=== PATIENT | female | born 1960 | race Caucasian/White ===

== ENCOUNTER → 2020-05-22 09:42 | Outpatient (BNVA) | payer OTHER, SELFPAY | PROVIDERS: PCP Internal Medicine; Referring Provider Internal Medicine; Visit Provider Internal Medicine Gastroenterology | DX: K21.9 Gastro-esophageal reflux disease without esophagitis (principal); Z79.899 Other long term (current) drug therapy | CPT/HCPCS: 99213 ==

== ENCOUNTER 2020-06-18 17:41 | Outpatient (REF) | payer OTHER, SELFPAY ==
--- NOTE | 2020-06-18 17:46 | MM_ITS ---
EXAMINATION: MM SCREENING DIGITAL BREAST TOMOSYNTHESIS, BILATERAL CLINICAL INFORMATION: Screening. Asymptomatic. Family history breast cancer in mother, age 42. The lifetime risk of breast cancer based on the Tyrer-Cuzick Model is 19%. COMPARISON: Mammography: 01/09/2019, 12/22/2017, 12/21/2016 TECHNIQUE: Digital breast tomosynthesis is performed in both the craniocaudal and mediolateral oblique views along with computer-aided detection (CAD). Synthesized 2D images are generated from the tomosynthesis. FINDINGS: The breasts are almost entirely fatty (ACR BI-RADS breast composition Category a). Background stromal markings are stable. There is no developing density or interval mass or architectural abnormality in either breast. Again, there is biopsy clip marker central left breast. There are no abnormal calcifications. The axilla and skin contours are unremarkable. MM/MM tomosynthesis screening BI IMPRESSION: No mammographic evidence of malignancy. ASSESSMENT: BI-RADS 1: Negative RECOMMENDATION: Routine annual mammography screening. This patient's information was entered into a reminder system with a target due date for their next mammogram.
== END 2020-06-18 17:42 | disposition home or self-care (01) ==
LOC: HO.MAMMO 17:41
PROVIDERS: PCP Internal Medicine; Visit Provider Internal Medicine
DX: Z12.31 Encounter for screening mammogram for malignant neoplasm of breast (principal)
CPT/HCPCS: 77063; 77067

== ENCOUNTER 2020-07-17 16:22 | Outpatient (REF) | payer OTHER, SELFPAY ==
[2020-07-17 17:38] LABS: TSH reflex Free T4 < 0.01 mIU/mL (0.32-4.0)
[2020-07-17 18:11] LABS: Free T4 (Free Thyroxine) 2.18 ng/dL (0.71-1.85)
[2020-07-17 18:11] LABS: Glucose Urine UA NEG (NEG); Leukocyte Esterase Urine NEG (NEG); Nitrite Urine NEG (NEG); Specific Gravity - Urine >= 1.030 (1.005-1.025); Urine Blood TRACE (NEG); Urine Ketones NEG (NEG); Urine Protein NEG (NEG-TRACE)
[2020-07-17 18:13] LABS: Appearance Urine CLEAR; Color Urine YELLOW
[2020-07-17 18:17] LABS: RBC Urine 0-2 /HPF (0); Squamous Epithelial Cell Urine 1+ /LPF; WBC Urine 0 /HPF (0-4)
== END 2020-07-17 16:23 | disposition home or self-care (01) ==
LOC: HO.LAB 16:22
PROVIDERS: PCP Internal Medicine; Visit Provider Internal Medicine
DX: E03.9 Hypothyroidism, unspecified (principal); R31.9 Hematuria, unspecified; M51.36 Other intervertebral disc degeneration, lumbar region
CPT/HCPCS: 81001; 84439; 84443

== ENCOUNTER → 2020-09-03 15:31 | Outpatient (BNVA) | payer OTHER, SELFPAY | PROVIDERS: PCP Internal Medicine; Visit Provider Urology | DX: R31.21 Asymptomatic microscopic hematuria (principal); Z87.19 Personal history of other diseases of the digestive system | CPT/HCPCS: 81002; 99202 ==

== ENCOUNTER 2020-09-19 16:31 | Outpatient (REF) | payer OTHER, SELFPAY | END 2020-09-19 16:32 | disposition home or self-care (01) | LOC: HO.LAB 16:31 | PROVIDERS: Visit Provider Internal Medicine | DX: Z20.822 Contact with and (suspected) exposure to COVID-19 (principal) | CPT/HCPCS: 36415; C9803; U0003; U0005 ==

== ENCOUNTER 2020-09-23 16:44 | Outpatient (REF) | payer OTHER, SELFPAY ==
[2020-09-23 19:17] LABS: Blood Urea Nitrogen 23 mg/dL (9-16); Estimated Glomerular Filt Rate > 60
== END 2020-09-23 16:45 | disposition home or self-care (01) ==
LOC: HO.LAB 16:44
PROVIDERS: PCP Internal Medicine; Visit Provider Urology
DX: R31.21 Asymptomatic microscopic hematuria (principal); Z87.19 Personal history of other diseases of the digestive system
CPT/HCPCS: 36415; 82565; 84520

== ENCOUNTER → 2020-10-01 12:15 | Outpatient (BNVA) | payer OTHER, SELFPAY | PROVIDERS: PCP Internal Medicine; Visit Provider Physician Assistant | DX: E66.9 Obesity, unspecified (principal); G47.33 Obstructive sleep apnea (adult) (pediatric) | CPT/HCPCS: 99202 ==

== ENCOUNTER → 2020-10-03 15:48 | Outpatient (BNVA) | payer OTHER, SELFPAY | PROVIDERS: Visit Provider Urology | DX: R31.21 Asymptomatic microscopic hematuria (principal) | CPT/HCPCS: Q3014 ==

== ENCOUNTER 2020-10-08 14:50 | Outpatient (REF) | payer OTHER, SELFPAY ==
--- NOTE | ~2020-10-08 | CT_ITS ---
EXAMINATION: CT ABDOMEN AND PELVIS WITHOUT AND WITH CONTRAST CLINICAL INFORMATION: Z87.19 -Microscopic hematuria. COMPARISON: Renal ultrasound 05/06/2020, abdominal ultrasound 09/13/2017 and 03/29/2017 TECHNIQUE: Noncontrast CT of the abdomen and pelvis is performed followed by split bolus contrast-enhanced images using 85 mL Omnipaque 350 contrast.? Post contrast imaging is performed during the combined nephrogram and excretion phase. Sagittal and coronal reformatted images were obtained on the technologist's workstation for both the pre and postcontrast phases. This CT examination was performed using dose optimization techniques as appropriate, variously including the following: *Automated exposure control *Adjustment of mA and/or kV according to patient size (this includes techniques or standardized protocols for targeted exams where dose is matched to indication/reason for exam; i.e. extremities or head) *Use of iterative reconstruction technique DLP: 1278 mGy-cm FINDINGS: LUNG BASES: The visualized lung bases are unremarkable. LIVER, GALLBLADDER, AND BILIARY TREE: The liver is normal in size and smooth in contour. There is a 1.3 cm cyst dome right lobe segment 8. The gallbladder shows no stone or wall thickening or pericholecystic inflammatory changes. Common duct measures 8-9 mm similar to ultrasound 2018. There is no choledocholithiasis. PANCREAS: Unremarkable SPLEEN: Homogeneous, normal in size. Incidental splenule left upper quadrant 0.8 cm. ADRENAL GLANDS: Unremarkable KIDNEYS AND URETERS: The kidneys are normal in size and contour and enhance symmetrically. There is no renal parenchymal lesion. There are no urinary tract calculi. There are some punctate vascular calcifications including small left gonadal vein phlebolith and pelvic calcified phleboliths. No hydronephrosis or perinephric stranding. No mucosal thickening or intraluminal filling the defect demonstrated. BLADDER: Nondistended, unremarkable. GASTROINTESTINAL TRACT: There is moderate stool in the colon. There is no obstruction or inflammatory changes in the bowel or mesentery. The appendix is normal. There is no ascites or fluid collection. ABDOMINAL WALL: Small fat-containing umbilical hernia approximately 3.6 x 2.8 cm. LYMPH NODES: No lymphadenopathy. VASCULAR: Unremarkable PELVIC VISCERA: Unremarkable OSSEOUS STRUCTURES: Degenerative changes lumbar spine. CT/CT abdomen pelvis wo/w con IMPRESSION: 1. No urinary tract calculi, parenchymal lesion, or gross focal filling defect. 2. Hepatic cyst 1.3 cm. 3. Mild prominence common duct, similar to ultrasound 2018. No cholelithiasis. 4. Small fat-containing umbilical hernia.
[2020-10-08] MEDS: iohexoL 350 MG/ML 100 ML INFUS..BTL IV (15:33)
== END 2020-10-08 14:51 | disposition home or self-care (01) ==
LOC: HO.CT 14:50
PROVIDERS: Visit Provider Urology
DX: R31.21 Asymptomatic microscopic hematuria (principal); Z87.19 Personal history of other diseases of the digestive system
CPT/HCPCS: 74178; Q9967

== ENCOUNTER 2020-10-19 10:13 | Outpatient (REF) | payer OTHER, SELFPAY ==
[2020-10-19 10:46] LABS: MANUAL DIFF FLAG NO
[2020-10-19 11:08] LABS: Basophils Percent Auto 0.3 % (0-2); Hematocrit 37.4 % (37-47); Lymphocytes Absolute Auto 0.8 X10*3/uL (1.2-4.9); Lymphocytes Percent Auto 26.1 % (20-40); Mean Corpuscular HGB Conc 32.1 g/dl (31.0-35.0); Mean Corpuscular Hemoglobin 29.1 pg (27.0-33.0); Mean Corpuscular Volume 90.8 fL (80-98); Mean Platelet Volume 10.9 fL (9.4-12.3); Monocytes Absolute Auto 0.4 X10*3/uL (0.1-1.2); Monocytes Percent Auto 13.4 % (2-11); Neutrophils Absolute Auto 1.8 X10*3/uL (2.0-8.3); Neutrophils Percent Auto 59.2 % (45-73); Platelet Count 198 X10*3/uL (160-400); Red Blood Count 4.12 X10*6/uL (4.20-5.50); Red Cell Distribution Width 12.7 % (11.0-16.0)
[2020-10-19 11:16] LABS: Alanine Aminotransferase 24 U/L (0-31); Albumin Level 4.1 g/dL (3.5-5.0); Alkaline Phosphatase 84 U/L (39-117); Anion Gap 14 (12-20); Aspartate Amino Transferase 26 U/L (5-31); Bilirubin Total 0.8 mg/dL (0.0-1.0); Blood Urea Nitrogen 21 mg/dL (9-16); C Reactive Protein 1.59 mg/dL (< or = 0.50); Calcium 9.6 mg/dL (8.4-10.2); Carbon Dioxide 27 mmol/L (22-29); Chloride 106 mmol/L (96-108); Cholesterol 117 mg/dL; Estimated Glomerular Filt Rate > 60; Glucose Fasting 83 mg/dL (60-99); HDL Cholesterol 41 mg/dL; Iron 34 mcg/dL (30-160); LDL Cholesterol Calculated 66 mg/dl; Percent Iron Saturation 13 % (15-50); Potassium 4.1 mmol/L (3.3-5.1); Sodium 143 mmol/L (135-145); Total Iron Binding Capacity 255 mcg/dL (228-428); Total Protein 6.5 g/dL (6.5-8.0); Triglycerides 53 mg/dL; Unsaturated Iron Binding 221 ug/dL
[2020-10-19 11:23] LABS: Estimated Average Glucose 100 mg/dL; Hemoglobin A1c % 5.1 %
[2020-10-19 11:36] LABS: Ferritin 420 ng/mL (10-250); TSH reflex Free T4 < 0.01 uIU/mL (0.32-4.0); Vitamin D 25-OH Total 47.9 ng/mL (>30)
[2020-10-19 12:32] LABS: Free T4 (Free Thyroxine) 2.51 ng/dL (0.71-1.85)
[2020-10-19 14:40] LABS: Folate > 20.0 ng/mL (> or = 4.0); Vitamin B12 717 pg/mL (200-900)
[2020-10-21 16:07] LABS: Calcium (PTHI) 9.9 mg/dL (8.6-10.4); PTHI 25 pg/mL (14-64)
[2020-10-22 21:51] LABS: Insulin Level Total 5.5 uIU/mL; Zinc 82 mcg/dL (60-130)
[2020-10-23 22:07] LABS: Vitamin A 44 mcg/dL (38-98)
== END 2020-10-19 10:14 | disposition home or self-care (01) ==
LOC: HO.LAB 10:13
PROVIDERS: PCP Internal Medicine; Visit Provider Physician Assistant
DX: E66.01 Morbid (severe) obesity due to excess calories (principal); G47.33 Obstructive sleep apnea (adult) (pediatric)
CPT/HCPCS: 36415; 80053; 80061; 82306; 82607; 82728; 82746; 83036; 83525; 83540; 83970; 84425; 84439; 84443; 84590; 84630; 85025; 86140

== ENCOUNTER → 2020-10-30 15:11 | Outpatient (BNVA) | payer OTHER, SELFPAY | PROVIDERS: PCP Internal Medicine; Visit Provider Dietitian, Registered ==

== ENCOUNTER → 2020-11-01 13:44 | Outpatient (BNVA) | payer OTHER, SELFPAY | PROVIDERS: PCP Internal Medicine; Visit Provider Nurse Practitioner Family | DX: M47.27 Other spondylosis with radiculopathy, lumbosacral region (principal); M96.1 Postlaminectomy syndrome, not elsewhere classified | CPT/HCPCS: 99202 ==

== ENCOUNTER → 2020-11-04 15:38 | Outpatient (BNVA) | payer OTHER, SELFPAY | PROVIDERS: PCP Internal Medicine; Visit Provider Surgery | DX: K42.9 Umbilical hernia without obstruction or gangrene (principal) | CPT/HCPCS: 99202 ==

== ENCOUNTER 2020-11-15 10:49 | Day surgery (SDC) | payer OTHER, SELFPAY ==
[2020-11-11 15:21] VITALS: BMI 35.2
--- NOTE | 2020-11-13 15:38 | HO.ANESPROP2 ---
Documented by User: Loren Newberryney 11/13/20 15:41 HPI - Anesthesia Eval Consult details Narrative: 59yo F for Hernia Repair Umbilical with Mesh opioids prn PMFSH Active Problems Active Problems: All Active Problems (Updated 11/13/20 @ 13:39 by Shabnam Magdaleno PA-C) Low TSH level (Acute) Tracheobronchitis (Acute) Leucopenia (Acute) Hypothyroid (Acute) MARLENY (obstructive sleep apnea) (Acute) Spondylosis of lumbosacral spine with radiculopathy (Acute) Failed back syndrome (Acute) Umbilical hernia (Acute) Liver cyst (Acute) Obesity (BMI 30-39.9) (Acute) History of small bowel obstruction (Acute) Lumbar degenerative disc disease (Acute) Hematuria (Acute) GERD (gastroesophageal reflux disease) (Acute) Past Medical History Medical History Anemia Arthritis Depression GERD (gastroesophageal reflux disease) Hematuria History of small bowel obstruction Hypothyroid IBS (irritable bowel syndrome) Leukopenia Liver cyst Lumbar degenerative disc disease Migraines Obesity (BMI 30-39.9) Sleep apnea Umbilical hernia Family History Family History Father FH: prostate cancer Mother Breast cancer Surgical History Surgical History H/O knee surgery H/O tubal ligation H/O: hysterectomy History of back surgery History of bilateral knee replacement History of bladder surgery History of delivery History of endometrial ablation Hx of colonoscopy Hx of total ankle replacement Social History Social History Household Members: None Housing: Apartment Alcohol intake: former Smoking Status: Former smoker Tobacco Type: Cigarette Advance Directives Information Provided: No Current occupational status: unemployed and disabled Meds Allergies Allergy/AdvReac Type Severity Reaction Status Date / Time amoxicillin [Augmentin] Allergy Unknown rash Verified 11/04/20 15:46 cat dander Allergy Unknown NASAL Verified 11/04/20 15:46 SYMPTOMS clavulanic acid [Augmentin] Allergy Unknown rash Verified 11/04/20 15:46 trazodone [TRAZODONE] Allergy Unknown I CAN'T Verified 11/04/20 15:46 BREATHE RIGHT , shortness of breath Home Medications Medication Instructions Recorded Confirmed Last Taken Type quetiapine 300 mg tablet,extended 300 mg PO DAILY 05/22/20 11/11/20 Unknown History release 24 hr albuterol sulfate 90 mcg/actuation 2 puff INHALATION Q6H PRN 09/03/20 11/04/20 Unknown History aerosol inhaler calcium carbonate 500 mg calcium 500 mg PO DAILY 10/01/20 11/11/20 Unknown History (1,250 mg) tablet docusate sodium 100 mg capsule 100 mg PO DAILY 10/01/20 11/11/20 Unknown History glucosamine HCl 500 mg tablet 500 mg PO DAILY 10/01/20 11/11/20 Unknown History multivitamin 1 tab PO DAILY 10/01/20 11/11/20 Unknown History omega-3 fatty acids 1,000 mg 1,000 mg PO DAILY 10/01/20 11/11/20 Unknown History capsule Exam Exam Date and Time: November 13, 2020 1538 Height,Weight and Vital Signs: Height 5 ft 6 in Weight 99 kg Pertinent Lab Results Pertinent Lab Results: Laboratory Tests 10/19/20 10/19/20 10:25 10:25 WBC 3.0 L Hgb 12.0 Hct 37.4 Plt Count 198 Sodium 143 Potassium 4.1 Chloride 106 Carbon Dioxide 27 BUN 21 H Creatinine 0.57 Assessment and Plan Assessment Anesthesia Assessment: Chart Reviewed Documented by User: Keily Shepard 11/15/20 12:37 [facility] Past Medical History Medical History Anemia Arthritis Depression GERD (gastroesophageal reflux disease) Hematuria History of small bowel obstruction Hypothyroid IBS (irritable bowel syndrome) Leukopenia Liver cyst Lumbar degenerative disc disease Migraines Obesity (BMI 30-39.9) Sleep apnea Umbilical hernia Family History Family History Father FH: prostate cancer Mother Breast cancer Surgical History Surgical History H/O knee surgery H/O tubal ligation H/O: hysterectomy History of back surgery History of bilateral knee replacement History of bladder surgery History of delivery History of endometrial ablation Hx of colonoscopy Hx of total ankle replacement Social History Social History Household Members: None Housing: Apartment Alcohol intake: former Smoking Status: Former smoker Tobacco Type: Cigarette Advance Directives Information Provided: No Current occupational status: unemployed and disabled Meds Allergies Allergy/AdvReac Type Severity Reaction Status Date / Time amoxicillin [Augmentin] Allergy Unknown rash Verified 11/04/20 15:46 cat dander Allergy Unknown NASAL Verified 11/04/20 15:46 SYMPTOMS clavulanic acid [Augmentin] Allergy Unknown rash Verified 11/04/20 15:46 trazodone [TRAZODONE] Allergy Unknown I CAN'T Verified 11/04/20 15:46 BREATHE RIGHT , shortness of breath Home Medications Medication Instructions Recorded Confirmed Last Taken Type quetiapine 300 mg tablet,extended 300 mg PO DAILY 05/22/20 11/11/20 Unknown History release 24 hr albuterol sulfate 90 mcg/actuation 2 puff INHALATION Q6H PRN 09/03/20 11/04/20 Unknown History aerosol inhaler calcium carbonate 500 mg calcium 500 mg PO DAILY 10/01/20 11/11/20 Unknown History (1,250 mg) tablet docusate sodium 100 mg capsule 100 mg PO DAILY 10/01/20 11/11/20 Unknown History glucosamine HCl 500 mg tablet 500 mg PO DAILY 10/01/20 11/11/20 Unknown History multivitamin 1 tab PO DAILY 10/01/20 11/11/20 Unknown History omega-3 fatty acids 1,000 mg 1,000 mg PO DAILY 10/01/20 11/11/20 Unknown History capsule Exam Airway Mallampati Class: I (Edentulous) TM Dist: >3cm Neck ROM: Full Loose/Missing/Broken Teeth: Yes, Upper and Lower Heart: RRR Lungs: CTA Assessment and Plan Assessment Anesthesia Assessment: Anesthesia Plan Discussed and Chart Reviewed Final Anesthetic Review NPO: Yes ASA Class: II Final Preanesthetic Review: Meds/Allgs Chart Reviewed, Consent Obtained/Reviewed and Anes Risks/Benef Reviewed Patient Risk: Low Procedure Risk: Low Anesthetic Plan Anesthetic Plan: GA Disposition: Standard PACU
[2020-11-15] VITALS (11 sets, daily range): BP systolic 89–127; BP diastolic 45–69; PULSE 59–68; RESP 12–18; TEMP 36.2–36.5; O2SAT 97–100
[2020-11-15] MEDS: Lactated Ringers 1,000 ML 100 ML IVCONT (11:39)
--- NOTE | 2020-11-15 12:24 | MHC.SHP ---
Pre-Procedural Eval Section B Chief Complaint: Umbilical hernia Allergies: Allergies Allergy/AdvReac Type Severity Reaction Status Date / Time amoxicillin [Augmentin] Allergy Unknown rash Verified 11/04/20 15:46 cat dander Allergy Unknown NASAL Verified 11/04/20 15:46 SYMPTOMS clavulanic acid [Augmentin] Allergy Unknown rash Verified 11/04/20 15:46 trazodone [TRAZODONE] Allergy Unknown I CAN'T Verified 11/04/20 15:46 BREATHE RIGHT , shortness of breath Plan I have reviewed the history and physical and performed a pertinent physical examination on my patient. No changes have occurred unless specified.
--- NOTE | 2020-11-15 13:37 | PM.OP ---
Brief Operative Note Date of Service: 11/15/20 Pre-op diagnosis: Umbilical hernia Post-op diagnosis: same Procedure: Repair of umbilical hernia with Ventralex mesh Implants: Mesh Surgeon: Zia Quintanilla MD Anesthesia: GLMA Estimated blood loss (mL): 1 Pathology: none sent Condition: stable Disposition: PACU
--- NOTE | 2020-11-15 13:38 | P.OP_ITS ---
Operative Note Operative Note Date of Service: 11/15/20 Narrative: Preop diagnosis: Umbilical hernia Postop diagnosis: Umbilical hernia Procedure: Repair of umbilical hernia with Ventralex mesh Surgeon: Zia Quintanilla MD The patient is a 59-year-old female who was referred to me for an umbilical hernia. This was noted on a CAT scan study. I explained to her options for treatment including watchful waiting. She to go ahead with repair of the umbilical hernia. She was aware of the risks, benefits, and alternatives. She was brought to the operating room and placed supine on the table under general anesthesia via laryngeal mask airway. The abdomen was prepped and draped in the usual sterile fashion. A surgical time-out was done. The patient received cefazolin 2 g IV preoperatively. I infiltrated the planned line of incision using a blade with lidocaine 1%. A short supra umbilical incision was made using a blade 15. This carried down through the full-thickness of the skin and subcutaneous fat down to the fascia. It is noted the patient had a thick amount of subcutaneous fat because of her pannus. I gently dissected the umbilicus off of the rest of the fascia until this was lifted off as a flap. I was able to visualize the hernia. This hernia contained significant amounts of omental fat. I had to carefully dissect the hernia contents off the fascial edges using Metzenbaum scissors. I did this circumferentially until was able to completely reduce the hernia. It was about 1 cm in diameter. I used a finger to check the underside of the hernial defect in this appeared to be free of any adhesions. There were no bowel loops surrounding the area. I used a small sized Ventralex mesh and this was flattened under the fascia. I secured the mesh with Prolene 2-0 sutures to the fascial defect through the Prolene straps on 2 sides. The Prolene straps were then trimmed flush on the fascial level. I closed the fascial defect with a [id number] Maxon 1 stitch. I then applied a stitch from the fascia to the umbilicus itself to recreate the dimple using Dexon 3-0 stitch. I reapposed the subcutaneous layer with Dexon 3- 0 interrupted sutures. Skin closure was achieved with Dexon 4-0 subcuticular sutures and Steri-Strips and dressings were applied. The incision was infiltrated with Marcaine 0.5% for postop analgesia the procedure was completed. The patient tolerated the procedure well. There were no complications noted. Initial and final count of sponges and instruments were correct. Estimated blood loss was about 1 cc. The patient was extubated without difficulty and transferred to the recovery room with stable vital signs.
[2020-11-15] MEDS: oxyCODONE HCl Immed Release 5 MG TABLET PO (14:11)
[2020-11-15] MEDS: Acetaminophen 325 MG TABLET 650 MG PO (14:11)
[2020-11-15] MEDS: oxyCODONE HCl Immed Release 5 MG TABLET 10 MG PO (15:28)
== END 2020-11-15 15:52 | disposition home or self-care (01) ==
PROVIDERS: PCP Internal Medicine; Visit Provider Surgery
PROC: (CPT 49585; principal; 2020-11-15 12:40)
DX: K42.9 Umbilical hernia without obstruction or gangrene (principal); Z88.0 Allergy status to penicillin
CPT/HCPCS: 49585; C1781; J0690; J1100; J2250; J2405

== ENCOUNTER 2020-11-18 13:19 | Outpatient (REF) | payer OTHER, SELFPAY ==
[2020-11-18 15:05] LABS: TSH reflex Free T4 0.02 uIU/mL (0.32-4.0)
[2020-11-18 15:26] LABS: Urine Cytology See Pathology rpt
[2020-11-18 15:34] LABS: Glucose Urine UA NEG (NEG); Leukocyte Esterase Urine NEG (NEG); Nitrite Urine NEG (NEG); Urine Blood NEG (NEG); Urine Ketones NEG (NEG); Urine Protein NEG (NEG-TRACE)
[2020-11-18 15:38] LABS: Free T4 (Free Thyroxine) 1.28 ng/dL (0.71-1.85)
[2020-11-18 15:50] LABS: Appearance Urine CLEAR; Color Urine YELLOW
[2020-11-22 06:21] LABS: Vitamin B1 24 nmol/L (8-30)
== END 2020-11-18 13:20 | disposition home or self-care (01) ==
LOC: HO.LAB 13:19
PROVIDERS: Urology; PCP Internal Medicine; Visit Provider Physician Assistant
DX: R79.89 Other specified abnormal findings of blood chemistry (principal); E66.9 Obesity, unspecified; G47.33 Obstructive sleep apnea (adult) (pediatric); E03.9 Hypothyroidism, unspecified; M51.36 Other intervertebral disc degeneration, lumbar region; R31.9 Hematuria, unspecified; G47.00 Insomnia, unspecified
CPT/HCPCS: 36415; 81003; 84425; 84439; 84443; 88112

== ENCOUNTER → 2020-12-05 15:12 | Outpatient (BNVA) | payer OTHER, SELFPAY | PROVIDERS: PCP Internal Medicine; Referring Provider Internal Medicine; Visit Provider Surgery | DX: Z48.815 Encounter for surgical aftercare following surgery on the digestive system (principal); Z87.19 Personal history of other diseases of the digestive system | CPT/HCPCS: 99212 ==

== ENCOUNTER → 2020-12-23 15:50 | Outpatient (BNVA) | payer OTHER, SELFPAY | PROVIDERS: PCP Internal Medicine; Visit Provider Physician Assistant | DX: E66.9 Obesity, unspecified (principal); Z68.34 Body mass index [BMI] 34.0-34.9, adult | CPT/HCPCS: 99212 ==

== ENCOUNTER → 2021-02-03 15:49 | Outpatient (BNVA) | payer OTHER, SELFPAY | PROVIDERS: PCP Internal Medicine; Referring Provider Internal Medicine; Visit Provider Dietitian, Registered | DX: E66.01 Morbid (severe) obesity due to excess calories (principal); D72.819 Decreased white blood cell count, unspecified; Z68.34 Body mass index [BMI] 34.0-34.9, adult; Z88.1 Allergy status to other antibiotic agents; Z88.8 Allergy status to other drugs, medicaments and biological substances; J30.81 Allergic rhinitis due to animal (cat) (dog) hair and dander; Z71.3 Dietary counseling and surveillance | CPT/HCPCS: 97803 ==

== ENCOUNTER → 2021-02-06 14:21 | Outpatient (BNVA) | payer OTHER, SELFPAY | PROVIDERS: PCP Internal Medicine; Visit Provider Physician Assistant | DX: Z13.89 Encounter for screening for other disorder (principal) | CPT/HCPCS: Q3014 ==

== ENCOUNTER 2021-03-12 16:55 | Outpatient (REF) | payer OTHER, SELFPAY ==
[2021-03-12 17:18] LABS: MANUAL DIFF FLAG NO
[2021-03-12 17:34] LABS: Basophils Percent Auto 0.6 % (0-2); Eosinophils Absolute Auto 0.1 X10*3/uL (0.0-0.4); Eosinophils Percent Auto 1.3 % (0-4); Hematocrit 36.8 % (37-47); Hemoglobin 11.8 g/dl (12.0-16.0); Imm Gran Abs Auto 0.01 X10*3/uL (0.00-0.03); Imm Gran Pct Auto 0.2 % (0.0-0.4); Lymphocytes Absolute Auto 1.8 X10*3/uL (1.2-4.9); Mean Corpuscular HGB Conc 32.1 g/dl (31.0-35.0); Mean Corpuscular Hemoglobin 30.2 pg (27.0-33.0); Mean Corpuscular Volume 94.1 fL (80-98); Mean Platelet Volume 9.9 fL (9.4-12.3); Monocytes Absolute Auto 0.5 X10*3/uL (0.1-1.2); Monocytes Percent Auto 9.5 % (2-11); Neutrophils Absolute Auto 2.9 X10*3/uL (2.0-8.3); Neutrophils Percent Auto 54.4 % (45-73); Platelet Count 237 X10*3/uL (160-400); Red Blood Count 3.91 X10*6/uL (4.20-5.50); Red Cell Distribution Width 14.4 % (11.0-16.0); White Blood Count 5.2 X10*3/uL (4.8-10.8)
[2021-03-12 17:56] LABS: Thyroid Stimulating Hormone < 0.01 uIU/mL (0.32-4.0)
== END 2021-03-12 16:56 | disposition home or self-care (01) ==
LOC: HO.LAB 16:55
PROVIDERS: PCP Internal Medicine; Visit Provider Internal Medicine
DX: E03.8 Other specified hypothyroidism (principal); E06.3 Autoimmune thyroiditis; D64.9 Anemia, unspecified; D72.819 Decreased white blood cell count, unspecified
CPT/HCPCS: 36415; 84443; 85025

== ENCOUNTER → 2021-04-04 15:28 | Outpatient (BNVA) | payer OTHER, SELFPAY | PROVIDERS: PCP Internal Medicine | DX: R31.21 Asymptomatic microscopic hematuria (principal); Z87.891 Personal history of nicotine dependence; J30.81 Allergic rhinitis due to animal (cat) (dog) hair and dander; Z88.1 Allergy status to other antibiotic agents; Z88.8 Allergy status to other drugs, medicaments and biological substances | CPT/HCPCS: Q3014 ==

== ENCOUNTER 2021-04-18 08:13 | Day surgery (SDC) | payer OTHER, SELFPAY ==
[2021-04-11 10:36] VITALS: BMI 35.6
--- NOTE | 2021-04-17 12:37 | P.CONAN_ITS ---
Documented by User: Loren Anders NP 04/17/21 12:40 HPI - Anesthesia Eval Consult details Narrative: 60yo F for Lumbar Spinal Cord Stimulation Trial s/p umbilical hernia with GA-LMA 11/2020 [facility] Active Problems Active Problems: All Active Problems (Updated 02/06/21 @ 14:42 by Becky Loza PA-C) Encounter for screening colonoscopy (Acute) Obesity (BMI 30-39.9) (Acute) BMI 34.0-34.9,adult (Acute) Low TSH level (Acute) Tracheobronchitis (Acute) Leucopenia (Acute) Hypothyroid (Acute) MARLENY (obstructive sleep apnea) (Acute) Spondylosis of lumbosacral spine with radiculopathy (Acute) Failed back syndrome (Acute) Umbilical hernia (Acute) Liver cyst (Acute) History of small bowel obstruction (Acute) Lumbar degenerative disc disease (Acute) Hematuria (Acute) GERD (gastroesophageal reflux disease) (Acute) Past Medical History Medical History Anemia Arthritis BMI 34.0-34.9,adult Depression GERD (gastroesophageal reflux disease) Hematuria History of small bowel obstruction Hypothyroid IBS (irritable bowel syndrome) Leukopenia Liver cyst Lumbar degenerative disc disease Migraines Obesity (BMI 30-39.9) Sleep apnea Umbilical hernia Family History Family History Father FH: prostate cancer Mother Breast cancer Surgical History Surgical History H/O hernia repair H/O knee surgery H/O tubal ligation H/O: hysterectomy History of back surgery History of bilateral knee replacement History of bladder surgery History of delivery History of endometrial ablation Hx of colonoscopy Social History Social History Household Members: None Housing: Apartment Alcohol intake: former Patient Tobacco Use Status: Former Tobacco user Quit Date: 2000 Tobacco use type: Cigarette Years Smoked: 25 Smoked in Last 30 Days: No e-Cigarette/Vaping Use: Never Used Second Hand Smoke Exposure: No Use of substances other than those prescribed or required for medical reasons: Yes Substance Use Frequency: Daily Are you DNR?: No Advance Directives: No Advance Directives Information Provided: Yes service: No Current occupational status: unemployed and disabled Meds Allergies Allergy/AdvReac Type Severity Reaction Status Date / Time amoxicillin [Augmentin] Allergy Intermediate rash Verified 04/18/21 09:52 cat dander Allergy Intermediate NASAL Verified 04/18/21 09:52 SYMPTOMS clavulanic acid [Augmentin] Allergy Intermediate rash Verified 04/18/21 09:52 trazodone [TRAZODONE] Allergy Intermediate I CAN'T Verified 04/18/21 09:52 BREATHE RIGHT , shortness of breath Home Medications Medication Instructions Recorded Confirmed Last Taken Type quetiapine 300 mg tablet,extended 300 mg PO DAILY 05/22/20 02/06/21 Unknown History release 24 hr (Seroquel XR) albuterol sulfate 90 mcg/actuation 2 puff INHALATION Q6H PRN 09/03/20 02/06/21 Unknown History aerosol inhaler calcium carbonate 500 mg calcium 500 mg PO DAILY 10/01/20 02/06/21 Unknown History (1,250 mg) tablet (Calcium 500) docusate sodium 100 mg capsule 100 mg PO DAILY 10/01/20 02/06/21 Unknown History (Stool Softener) glucosamine HCl 500 mg tablet 500 mg PO DAILY 10/01/20 02/06/21 Unknown History multivitamin 1 tab PO DAILY 10/01/20 02/06/21 Unknown History omega-3 fatty acids 1,000 mg 1,000 mg PO DAILY 10/01/20 02/06/21 04/07/21 History capsule (Fish Oil Concentrate) bupropion HCl 75 mg tablet 75 mg PO BEDTIME 04/04/21 Unknown History clonazepam 0.5 mg tablet 0.5 mg PO BID PRN 04/04/21 Unknown History doxycycline hyclate 20 mg tablet 40 mg PO DAILY 04/04/21 Unknown History estradiol g VAGINAL 04/04/21 Unknown History fluoxetine 20 mg capsule 60 mg PO QAM 04/04/21 Unknown History ivermectin 1 % topical cream appl TOPICAL DAILY 04/04/21 Unknown History (Soolantra) melatonin 5 mg tablet 5 mg PO BEDTIME 04/04/21 Unknown History metronidazole 0.75 % topical gel 1 appl TOPICAL BEDTIME 04/04/21 Unknown History omeprazole 20 mg capsule,delayed 20 mg PO BID 04/04/21 Unknown History release quetiapine 300 mg tablet 300 mg PO BID 04/04/21 Unknown History Exam Exam Date and Time: April 17, 2021 1237 Height,Weight and Vital Signs: Height 5 ft 6 in Weight 100.244 kg Pertinent Lab Results Pertinent Lab Results: Laboratory Tests 10/19/20 03/12/21 10:25 17:02 WBC 5.2 Hgb 11.8 L Hct 36.8 L Plt Count 237 Sodium 143 Potassium 4.1 Chloride 106 Carbon Dioxide 27 BUN 21 H Creatinine 0.57 Assessment and Plan Assessment Anesthesia Assessment: Chart Reviewed Documented by User: Rebecca Villeda MD 04/18/21 12:30 PMFSH Past Medical History Medical History Anemia Arthritis BMI 34.0-34.9,adult Depression GERD (gastroesophageal reflux disease) Hematuria History of small bowel obstruction Hypothyroid IBS (irritable bowel syndrome) Leukopenia Liver cyst Lumbar degenerative disc disease Migraines Obesity (BMI 30-39.9) Sleep apnea Umbilical hernia Family History Family History Father FH: prostate cancer Mother Breast cancer Family history of problems with anesthesia: No Surgical History Surgical History H/O hernia repair H/O knee surgery H/O tubal ligation H/O: hysterectomy History of back surgery History of bilateral knee replacement History of bladder surgery History of delivery History of endometrial ablation Hx of colonoscopy History of Problems with Anesthesia: No Social History Social History Household Members: None Housing: Apartment Alcohol intake: former Patient Tobacco Use Status: Former Tobacco user Quit Date: 2000 Tobacco use type: Cigarette Years Smoked: 25 Smoked in Last 30 Days: No e-Cigarette/Vaping Use: Never Used Second Hand Smoke Exposure: No Use of substances other than those prescribed or required for medical reasons: Yes Substance Use Frequency: Daily Are you DNR?: No Advance Directives: No Advance Directives Information Provided: Yes service: No Current occupational status: unemployed and disabled Meds Allergies Allergy/AdvReac Type Severity Reaction Status Date / Time amoxicillin [Augmentin] Allergy Intermediate rash Verified 04/18/21 09:52 cat dander Allergy Intermediate NASAL Verified 04/18/21 09:52 SYMPTOMS clavulanic acid [Augmentin] Allergy Intermediate rash Verified 04/18/21 09:52 trazodone [TRAZODONE] Allergy Intermediate I CAN'T Verified 04/18/21 09:52 BREATHE RIGHT , shortness of breath Home Medications Medication Instructions Recorded Confirmed Last Taken Type quetiapine 300 mg tablet,extended 300 mg PO DAILY 05/22/20 02/06/21 Unknown History release 24 hr (Seroquel XR) albuterol sulfate 90 mcg/actuation 2 puff INHALATION Q6H PRN 09/03/20 02/06/21 Unknown History aerosol inhaler calcium carbonate 500 mg calcium 500 mg PO DAILY 10/01/20 02/06/21 Unknown History (1,250 mg) tablet (Calcium 500) docusate sodium 100 mg capsule 100 mg PO DAILY 10/01/20 02/06/21 Unknown History (Stool Softener) glucosamine HCl 500 mg tablet 500 mg PO DAILY 10/01/20 02/06/21 Unknown History multivitamin 1 tab PO DAILY 10/01/20 02/06/21 Unknown History omega-3 fatty acids 1,000 mg 1,000 mg PO DAILY 10/01/20 02/06/21 04/07/21 History capsule (Fish Oil Concentrate) bupropion HCl 75 mg tablet 75 mg PO BEDTIME 04/04/21 Unknown History clonazepam 0.5 mg tablet 0.5 mg PO BID PRN 04/04/21 Unknown History doxycycline hyclate 20 mg tablet 40 mg PO DAILY 04/04/21 Unknown History estradiol g VAGINAL 04/04/21 Unknown History fluoxetine 20 mg capsule 60 mg PO QAM 04/04/21 Unknown History ivermectin 1 % topical cream appl TOPICAL DAILY 04/04/21 Unknown History (Soolantra) melatonin 5 mg tablet 5 mg PO BEDTIME 04/04/21 Unknown History metronidazole 0.75 % topical gel 1 appl TOPICAL BEDTIME 04/04/21 Unknown History omeprazole 20 mg capsule,delayed 20 mg PO BID 04/04/21 Unknown History release quetiapine 300 mg tablet 300 mg PO BID 04/04/21 Unknown History Exam Height,Weight and Vital Signs: Height 5 ft 6 in Weight 100.244 kg Vital Signs Temp Pulse Resp BP Pulse Ox 04/18/21 10:20 98.2 F 65 16 134/65 99 Airway Mallampati Class: II TM Dist: >3cm Neck ROM: Full Denture: Upper and Lower Heart: RRR Lungs: CTAB Assessment and Plan Assessment Anesthesia Assessment: Anesthesia Plan Discussed Final Anesthetic Review Family History of Problems with Anesthesia: No History of Problems with Anesthesia: No NPO: Yes ASA Class: III Final Preanesthetic Review: No Changes in Pt Med Stat, Meds/Allgs Chart Reviewed, Consent Obtained/Reviewed and Anes Risks/Benef Reviewed Patient Risk: Intermediate Procedure Risk: Low Assessment/Block/Sedation in SS: Assess/Block/Sedation-SS Anesthetic Plan Anesthetic Plan: MAC: Disposition: Standard PACU
--- NOTE | ~2021-04-18 | FL_ITS ---
EXAMINATION: XR FLUOROSCOPY WITH IMAGES CLINICAL INFORMATION: Lumbar spinal stimulator COMPARISON: CT abdomen pelvis 10/08/2020 TECHNIQUE: Fluoroscopy performed by Dr. Edwin Mahoney. Fluoroscopy time: 2.0 minutes DAP: 17.5 Gycm2 Images: 10/17/2001 034 FL/FL guidance in OR IMPRESSION: Intraoperative fluoroscopic guidance provided for placement of a spinal stimulator. The most cephalad electrodes terminate at the level of the T9 vertebral body (assuming 12 rib bearing thoracic vertebral bodies).
[2021-04-18 09:58] VITALS: BMI 37.1
[2021-04-18 10:20] VITALS: BP 134/65; PULSE 65; RESP 16; TEMP 36.8; O2SAT 99
[2021-04-18] MEDS: Lactated Ringers 1,000 ML 100 ML IVCONT (10:26)
[2021-04-18] MEDS: Clindamycin Phosphate/D5W 900 MG/50 ML PIGGYBACK 50 MG IV (10:26)
--- NOTE | 2021-04-18 11:23 | PM.OP ---
Brief Operative Note Date of Service: 04/18/21 Procedure: Trial of [employer] spinal cord stimulator Implants: None per Surgeon: Edwin Mahoney MD Anesthesia: MAC Was an Director Of Vendor Management used for this Procedure?: No Estimated blood loss (mL): 3 Pathology: none sent Condition: stable Disposition: PACU
--- NOTE | 2021-04-18 11:24 | MHC.SHP ---
Pre-Procedural Eval Section A Date of Service: 04/18/21 Section B Chief Complaint: spondylosis of lumbosacral spine with radiculopath Details of Present Illness: as above Relevant Family History (Specify if Yes): No Relevant Social History: None Present Medications: see Short Stay Collaborative assessment Medical History: No relevant PMH History of Previous Operations: No relevant previous surgery Allergies: Allergies Allergy/AdvReac Type Severity Reaction Status Date / Time amoxicillin [Augmentin] Allergy Intermediate rash Verified 04/18/21 09:52 cat dander Allergy Intermediate NASAL Verified 04/18/21 09:52 SYMPTOMS clavulanic acid [Augmentin] Allergy Intermediate rash Verified 04/18/21 09:52 trazodone [TRAZODONE] Allergy Intermediate I CAN'T Verified 04/18/21 09:52 BREATHE RIGHT , shortness of breath Review of Systems Sugical H&P ROS: Negative: Constitution, Cardiovascular, Respiratory, Neurological, Psychiatric, Hem-Onc, Allergic/Immunologic, Gastrointestinal, Genitourinary, Musculoskeletal, Integumentary, Endocrine and Eyes/Ears/Nose/Throat Exam Surgical H&P Exam: Normal: HEENT, Normal: Heart, Normal: Lungs, Normal: Extremities, Normal: Abdomen, Normal: Skin and Normal: Neurological Plan Diagnosis/Plan: Unchanged I have reviewed the history and physical and performed a pertinent physical examination on my patient. No changes have occurred unless specified.
--- NOTE | 2021-04-18 11:39 | W.PM.OPN ---
Operative Note Operative Note Date of Service: 04/18/21 Narrative: Mayte Mccurdy is very pleasant 60 years old female who came today the operating room for the trial of spinal cord stimulation Medtronic machine for the treatment of low back pain syndrome with radiation into bilateral lower extremities. After obtaining informed consent patient was brought to the operating room, SHE was positioned prone on operating table, [place] [employer] monitors were applied and patient was deeply sedated.? Time-out was performed delineating correct site, side, the nature of the procedure, patient's allergy, preoperative antibiotic if needed.? All operating room staff was participating in OR time-out procedure. Patient's entire back was prepped with ChloraPrep twice and draped with full body fenestrated drape.? Sterilely draped C-arm was brought over operating field and sqare picture of T11-T12 L1 L2 vertebrae as were demonstrated on the screen.? Attention FIRST? was concentrated on the L1-L2 epidural interspace.? The location of the projection of the right pedicle center of the L3 vertebra was found on the screen using C-arm.? This location was injected with mixture of lidocaine 2% and Marcaine 0.5% 5 cc.? After that 11 blade was used to make a gisele on the skin.? 10 cm 14 gauge curved introducer epidural needle was inserted through the gisele and advanced to L1- L2 epidural interspace.? The advancement of the needle was performed on anterior posterior and lateral views.? Guitar wire and loss of resistance technique were used to locate epidural space. The angle of entrance to the epidural space was very steep and I was not able to advance the epidural lead through the single. The decision was made to go 1 level above at T12-L1 epidural interspace. The procedure of epidural space advancement was as described above. The needle was used 6 in long introducer needle. After that guitar wire was used to locate epidural space. When guitar wire was spread in the epidural fashion, epidural lead was inserted through the skin and it was advanced to T8 position strictly at the midline. After that location of the projection of the LEFT pedicle center of the L4 vertebra was found on the skin using C-arm.? This location was injected with mixture of lidocaine 2% and Marcaine 0.5% 5 cc.? After that 11 blade was used to make a gisele on the skin.? 10 cm 14 gauge curved introducer epidural needle was inserted through the gisele and advanced to L2-L3 epidural interspace.? The advancement of the needle was performed on anterior posterior and lateral views.? Guitar wire and loss of resistance technique were used to locate epidural space.? When guitar wire was spread in the epidural fashion, epidural lead was inserted through the needle and advanced to the T8 epidural interspace slightly right to the existing lead right to the epidural space.. At this moment patient was awaken and the epidural leads were connected to the testing device.? The patient reported stimulation corresponding to her pain.? After satisfactory position of the leads were established the needles were withdrawn, the stylette wires were removed from the epidural leads.? The anchoring devices were dislodged on the leads and advanced to the level of the skin.? The anchoring devices were sutured with two 0-0 silk sutures to the skin of the patient.? The leads were connected to testing device.? Bacitracin ointment was applied to the entrance point of bilateral needles.? Sterile dressing was applied to the patient's back.? The testing device was also glued to the patient's back.? Upon completion of the procedure the patient was awake and she was transfered to the PACU where she recovered uneventfully.
[2021-04-18 13:12] VITALS: BP 113/53; PULSE 68; RESP 19; TEMP 36.6; O2SAT 98
[2021-04-18 13:35] VITALS: BP 113/59; PULSE 62; RESP 17; TEMP 36.6; O2SAT 99
== END 2021-04-18 13:52 | disposition home or self-care (01) ==
PROVIDERS: PCP Internal Medicine; Visit Provider Anesthesiology
PROC: (CPT 63650; principal; 2021-04-18 10:10)
DX: M47.27 Other spondylosis with radiculopathy, lumbosacral region (principal); M96.1 Postlaminectomy syndrome, not elsewhere classified; M79.7 Fibromyalgia
CPT/HCPCS: 63650 ×2; C1713; C1778; C1897; J2250

== ENCOUNTER → 2021-04-22 08:19 | Outpatient (BNVA) | payer OTHER, SELFPAY | PROVIDERS: PCP Internal Medicine; Visit Provider Dietitian, Registered | DX: E66.9 Obesity, unspecified (principal) | CPT/HCPCS: 97803 ==

== ENCOUNTER → 2021-04-24 09:18 | Outpatient (BNVA) | payer OTHER, SELFPAY | PROVIDERS: PCP Internal Medicine; Visit Provider Anesthesiology | DX: M47.27 Other spondylosis with radiculopathy, lumbosacral region (principal); M96.1 Postlaminectomy syndrome, not elsewhere classified | CPT/HCPCS: 99212 ==

== ENCOUNTER 2021-05-14 12:21 | Day surgery (SDC) | payer OTHER, SELFPAY ==
[2021-04-21 08:31] VITALS: BMI 37.1
--- NOTE | 2021-04-22 10:51 | P.CONAN_ITS ---
HPI - Anesthesia Eval Consult details Narrative: 60yo F for Upper Endoscopy and Colonoscopy s/p Spinal Stim Trial 04/18/21 with [facility] Active Problems Active Problems: All Active Problems (Updated 04/21/21 @ 08:31 by Evelia Lloyd RN) Tracheobronchitis (Acute) Leucopenia (Acute) Hypothyroid (Acute) MARLENY (obstructive sleep apnea) (Acute) Spondylosis of lumbosacral spine with radiculopathy (Acute) Failed back syndrome (Acute) Low TSH level (Acute) Encounter for screening colonoscopy (Acute) Obesity (BMI 30-39.9) (Acute) BMI 34.0-34.9,adult (Acute) Umbilical hernia (Acute) Liver cyst (Acute) History of small bowel obstruction (Acute) Lumbar degenerative disc disease (Acute) Hematuria (Acute) GERD (gastroesophageal reflux disease) (Acute) Past Medical History Medical History (Updated 04/21/21 @ 08:31 by Evelia Lloyd RN) Anemia Arthritis BMI 34.0-34.9,adult Depression GERD (gastroesophageal reflux disease) Hematuria History of small bowel obstruction Hypothyroid IBS (irritable bowel syndrome) Leukopenia Liver cyst Lumbar degenerative disc disease Migraines Obesity (BMI 30-39.9) Sleep apnea Umbilical hernia Family History Family History Father FH: prostate cancer Mother Breast cancer Family history of problems with anesthesia: No Surgical History Surgical History (Updated 04/21/21 @ 08:31 by Evelia Lloyd RN) H/O hernia repair H/O knee surgery H/O tubal ligation H/O: hysterectomy History of back surgery History of bilateral knee replacement History of bladder surgery History of delivery History of endometrial ablation History of surgery Hx of colonoscopy History of Problems with Anesthesia: No Social History Social History Household Members: None Housing: Apartment Alcohol intake: former Patient Tobacco Use Status: Former Tobacco user Quit Date: 2000 Tobacco use type: Cigarette Years Smoked: 25 e-Cigarette/Vaping Use: Never Used Second Hand Smoke Exposure: No service: No Current occupational status: unemployed and disabled Meds Allergies Allergy/AdvReac Type Severity Reaction Status Date / Time amoxicillin [Augmentin] Allergy Intermediate rash Verified 04/18/21 09:52 cat dander Allergy Intermediate NASAL Verified 04/18/21 09:52 SYMPTOMS clavulanic acid [Augmentin] Allergy Intermediate rash Verified 04/18/21 09:52 trazodone [TRAZODONE] Allergy Intermediate I CAN'T Verified 04/18/21 09:52 BREATHE RIGHT , shortness of breath Home Medications Medication Instructions Recorded Confirmed Last Taken Type quetiapine 300 mg tablet,extended 300 mg PO DAILY 05/22/20 02/06/21 Unknown History release 24 hr (Seroquel XR) albuterol sulfate 90 mcg/actuation 2 puff INHALATION Q6H PRN 09/03/20 02/06/21 Unknown History aerosol inhaler calcium carbonate 500 mg calcium 500 mg PO DAILY 10/01/20 02/06/21 Unknown History (1,250 mg) tablet (Calcium 500) docusate sodium 100 mg capsule 100 mg PO DAILY 10/01/20 02/06/21 Unknown History (Stool Softener) glucosamine HCl 500 mg tablet 500 mg PO DAILY 10/01/20 02/06/21 Unknown History multivitamin 1 tab PO DAILY 10/01/20 02/06/21 Unknown History omega-3 fatty acids 1,000 mg 1,000 mg PO DAILY 10/01/20 02/06/21 04/07/21 History capsule (Fish Oil Concentrate) bupropion HCl 75 mg tablet 75 mg PO BEDTIME 04/04/21 Unknown History clonazepam 0.5 mg tablet 0.5 mg PO BID PRN 04/04/21 Unknown History doxycycline hyclate 20 mg tablet 40 mg PO DAILY 04/04/21 Unknown History estradiol g VAGINAL 04/04/21 Unknown History fluoxetine 20 mg capsule 60 mg PO QAM 04/04/21 Unknown History ivermectin 1 % topical cream appl TOPICAL DAILY 04/04/21 Unknown History (Soolantra) melatonin 5 mg tablet 5 mg PO BEDTIME 04/04/21 Unknown History metronidazole 0.75 % topical gel 1 appl TOPICAL BEDTIME 04/04/21 Unknown History omeprazole 20 mg capsule,delayed 20 mg PO BID 04/04/21 Unknown History release quetiapine 300 mg tablet 300 mg PO BID 04/04/21 Unknown History Exam Exam Date and Time: April 22, 2021 1051 Height,Weight and Vital Signs: Height 5 ft 6 in Weight 104.326 kg Pertinent Lab Results Pertinent Lab Results: Laboratory Tests ? 10/19/20 03/12/21 ? 10:25 17:02 WBC ? ?5.2 Hgb ? ?11.8 L Hct ? ?36.8 L Plt Count ? ?237 Sodium ?143 ? Potassium ?4.1 ? Chloride ?106 ? Carbon Dioxide ?27 ? BUN ?21 H ? Creatinine ?0.57 ? Assessment and Plan Assessment Anesthesia Assessment: Chart Reviewed Final Anesthetic Review Family History of Problems with Anesthesia: No History of Problems with Anesthesia: No
--- NOTE | 2021-05-13 09:33 | P.CONAN_ITS ---
Documented by User: Loren Anders NP 05/13/21 09:41 HPI - Anesthesia Eval Consult details Narrative: 60yo F for Upper Endoscopy and Colonoscopy s/p spinal stim trial 04/2021 with MAC [facility] Active Problems Active Problems: All Active Problems (Updated 04/21/21 @ 08:31 by Evelia Lloyd, RN) Tracheobronchitis (Acute) Leucopenia (Acute) Hypothyroid (Acute) MARLENY (obstructive sleep apnea) (Acute) Spondylosis of lumbosacral spine with radiculopathy (Acute) Failed back syndrome (Acute) Low TSH level (Acute) Encounter for screening colonoscopy (Acute) Obesity (BMI 30-39.9) (Acute) BMI 34.0-34.9,adult (Acute) Umbilical hernia (Acute) Liver cyst (Acute) History of small bowel obstruction (Acute) Lumbar degenerative disc disease (Acute) Hematuria (Acute) GERD (gastroesophageal reflux disease) (Acute) Past Medical History Medical History (Updated 04/21/21 @ 08:31 by Evelia Lloyd RN) Anemia Arthritis BMI 34.0-34.9,adult Depression GERD (gastroesophageal reflux disease) Hematuria History of small bowel obstruction Hypothyroid IBS (irritable bowel syndrome) Leukopenia Liver cyst Lumbar degenerative disc disease Migraines Obesity (BMI 30-39.9) Sleep apnea Umbilical hernia Family History Family History Father FH: prostate cancer Mother Breast cancer Family history of problems with anesthesia: No Surgical History Surgical History (Updated 04/21/21 @ 08:31 by Evelia Lloyd RN) H/O hernia repair H/O knee surgery H/O tubal ligation H/O: hysterectomy History of back surgery History of bilateral knee replacement History of bladder surgery History of delivery History of endometrial ablation History of surgery Hx of colonoscopy History of Problems with Anesthesia: No Social History Social History Household Members: None Housing: Apartment Alcohol intake: former Patient Tobacco Use Status: Former Tobacco user Quit Date: 2000 Tobacco use type: Cigarette Years Smoked: 25 e-Cigarette/Vaping Use: Never Used Second Hand Smoke Exposure: No Use of substances other than those prescribed or required for medical reasons: No Have you been hit, kicked, punched, or otherwise hurt by someone within the past year? If so, by whom?: No Are you DNR?: No Advance Directives: No Advance Directives Information Provided: Yes Recently lost weight without trying: No Nutrition Risks: No Nutritional Risk service: No Current occupational status: unemployed and disabled Meds Allergies Allergy/AdvReac Type Severity Reaction Status Date / Time amoxicillin [Augmentin] Allergy Intermediate rash Verified 04/24/21 09:39 cat dander Allergy Intermediate NASAL Verified 04/24/21 09:39 SYMPTOMS clavulanic acid [Augmentin] Allergy Intermediate rash Verified 04/24/21 09:39 trazodone [TRAZODONE] Allergy Intermediate I CAN'T Verified 04/24/21 09:39 BREATHE RIGHT , shortness of breath Home Medications Medication Instructions Recorded Confirmed Last Taken Type quetiapine 300 mg tablet,extended 300 mg PO DAILY 05/22/20 02/06/21 05/14/21 History release 24 hr (Seroquel XR) albuterol sulfate 90 mcg/actuation 2 puff INHALATION Q6H PRN 09/03/20 02/06/21 Unknown History aerosol inhaler calcium carbonate 500 mg calcium 500 mg PO DAILY 10/01/20 02/06/21 Unknown History (1,250 mg) tablet (Calcium 500) docusate sodium 100 mg capsule 100 mg PO DAILY 10/01/20 02/06/21 Unknown History (Stool Softener) glucosamine HCl 500 mg tablet 500 mg PO DAILY 10/01/20 02/06/21 Unknown History multivitamin 1 tab PO DAILY 10/01/20 02/06/21 Unknown History omega-3 fatty acids 1,000 mg 1,000 mg PO DAILY 10/01/20 02/06/21 04/07/21 History capsule (Fish Oil Concentrate) bupropion HCl 75 mg tablet 75 mg PO BEDTIME 04/04/21 Unknown History clonazepam 0.5 mg tablet 0.5 mg PO BID PRN 04/04/21 Unknown History doxycycline hyclate 20 mg tablet 40 mg PO DAILY 04/04/21 Unknown History estradiol g VAGINAL 04/04/21 Unknown History fluoxetine 20 mg capsule 60 mg PO QAM 04/04/21 05/14/21 History ivermectin 1 % topical cream appl TOPICAL DAILY 04/04/21 Unknown History (Soolantra) melatonin 5 mg tablet 5 mg PO BEDTIME 04/04/21 Unknown History metronidazole 0.75 % topical gel 1 appl TOPICAL BEDTIME 04/04/21 Unknown History omeprazole 20 mg capsule,delayed 20 mg PO BID 04/04/21 Unknown History release quetiapine 300 mg tablet 300 mg PO BID 04/04/21 Unknown History Exam Exam Date and Time: May 13, 2021 0933 Height,Weight and Vital Signs: Height 5 ft 6 in Weight 104.326 kg Pertinent Lab Results Pertinent Lab Results: Laboratory Tests ? 10/19/20 03/12/21 ? 10:25 17:02 WBC ? ?5.2 Hgb ? ?11.8 L Hct ? ?36.8 L Plt Count ? ?237 Sodium ?143 ? Potassium ?4.1 ? Chloride ?106 ? Carbon Dioxide ?27 ? BUN ?21 H ? Creatinine ?0.57B ? Assessment and Plan Assessment Anesthesia Assessment: Chart Reviewed Final Anesthetic Review Family History of Problems with Anesthesia: No History of Problems with Anesthesia: No Documented by User: Tone Muñiz MD 05/14/21 13:10 [facility] Past Medical History Medical History (Updated 04/21/21 @ 08:31 by Evelia Lloyd RN) Anemia Arthritis BMI 34.0-34.9,adult Depression GERD (gastroesophageal reflux disease) Hematuria History of small bowel obstruction Hypothyroid IBS (irritable bowel syndrome) Leukopenia Liver cyst Lumbar degenerative disc disease Migraines Obesity (BMI 30-39.9) Sleep apnea Umbilical hernia Family History Family History Father FH: prostate cancer Mother Breast cancer Surgical History Surgical History (Updated 04/21/21 @ 08:31 by Evelia Lloyd RN) H/O hernia repair H/O knee surgery H/O tubal ligation H/O: hysterectomy History of back surgery History of bilateral knee replacement History of bladder surgery History of delivery History of endometrial ablation History of surgery Hx of colonoscopy Social History Social History Household Members: None Housing: Apartment Alcohol intake: former Patient Tobacco Use Status: Former Tobacco user Quit Date: 2000 Tobacco use type: Cigarette Years Smoked: 25 e-Cigarette/Vaping Use: Never Used Second Hand Smoke Exposure: No Use of substances other than those prescribed or required for medical reasons: No Have you been hit, kicked, punched, or otherwise hurt by someone within the past year? If so, by whom?: No Are you DNR?: No Advance Directives: No Advance Directives Information Provided: Yes Recently lost weight without trying: No Nutrition Risks: No Nutritional Risk service: No Current occupational status: unemployed and disabled Meds Allergies Allergy/AdvReac Type Severity Reaction Status Date / Time amoxicillin [Augmentin] Allergy Intermediate rash Verified 04/24/21 09:39 cat dander Allergy Intermediate NASAL Verified 04/24/21 09:39 SYMPTOMS clavulanic acid [Augmentin] Allergy Intermediate rash Verified 04/24/21 09:39 trazodone [TRAZODONE] Allergy Intermediate I CAN'T Verified 04/24/21 09:39 BREATHE RIGHT , shortness of breath Home Medications Medication Instructions Recorded Confirmed Last Taken Type quetiapine 300 mg tablet,extended 300 mg PO DAILY 05/22/20 02/06/21 05/14/21 History release 24 hr (Seroquel XR) albuterol sulfate 90 mcg/actuation 2 puff INHALATION Q6H PRN 09/03/20 02/06/21 Unknown History aerosol inhaler calcium carbonate 500 mg calcium 500 mg PO DAILY 10/01/20 02/06/21 Unknown History (1,250 mg) tablet (Calcium 500) docusate sodium 100 mg capsule 100 mg PO DAILY 10/01/20 02/06/21 Unknown History (Stool Softener) glucosamine HCl 500 mg tablet 500 mg PO DAILY 10/01/20 02/06/21 Unknown History multivitamin 1 tab PO DAILY 10/01/20 02/06/21 Unknown History omega-3 fatty acids 1,000 mg 1,000 mg PO DAILY 10/01/20 02/06/21 04/07/21 History capsule (Fish Oil Concentrate) bupropion HCl 75 mg tablet 75 mg PO BEDTIME 04/04/21 Unknown History clonazepam 0.5 mg tablet 0.5 mg PO BID PRN 04/04/21 Unknown History doxycycline hyclate 20 mg tablet 40 mg PO DAILY 04/04/21 Unknown History estradiol g VAGINAL 04/04/21 Unknown History fluoxetine 20 mg capsule 60 mg PO QAM 04/04/21 05/14/21 History ivermectin 1 % topical cream appl TOPICAL DAILY 04/04/21 Unknown History (Soolantra) melatonin 5 mg tablet 5 mg PO BEDTIME 04/04/21 Unknown History metronidazole 0.75 % topical gel 1 appl TOPICAL BEDTIME 04/04/21 Unknown History omeprazole 20 mg capsule,delayed 20 mg PO BID 04/04/21 Unknown History release quetiapine 300 mg tablet 300 mg PO BID 04/04/21 Unknown History Exam Airway Mallampati Class: II TM Dist: >3cm Neck ROM: Full Denture: Upper and Lower
[2021-05-14 12:45] VITALS: BP 108/63; PULSE 75; RESP 18; TEMP 36.6; O2SAT 96
[2021-05-14] MEDS: Lactated Ringers 1,000 ML 100 ML IVCONT (13:10)
--- NOTE | 2021-05-14 13:12 | MHC.SHP ---
Pre-Procedural Eval Section A Date of Service: 05/14/21 Section B Chief Complaint: reflux disease,screening Relevant Family History (Specify if Yes): No Relevant Social History: Other (specify) (THC) Present Medications: see Short Stay Collaborative assessment Medical History: Significant History (Anemia Arthritis BMI 34.0-34.9,adult Depression GERD (gastroesophageal reflux disease) Hematuria History of small bowel obstruction Hypothyroid IBS (irritable bowel syndrome) Leukopenia Liver cyst Lumbar degenerative disc disease Migraines Obesity (BMI 30-39.9) Sleep apnea Umbilical hernia) History of Previous Operations: Relevant previous surgery/procedure and date(s) (H/O hernia repair H/O knee surgery H/O tubal ligation H/O: hysterectomy History of back surgery History of bilateral knee replacement History of bladder surgery History of delivery History of endometrial ablation History of surgery Hx of colonoscopy) Allergies: Allergies Allergy/AdvReac Type Severity Reaction Status Date / Time amoxicillin [Augmentin] Allergy Intermediate rash Verified 04/24/21 09:39 cat dander Allergy Intermediate NASAL Verified 04/24/21 09:39 SYMPTOMS clavulanic acid [Augmentin] Allergy Intermediate rash Verified 04/24/21 09:39 trazodone [TRAZODONE] Allergy Intermediate I CAN'T Verified 04/24/21 09:39 BREATHE RIGHT , shortness of breath Review of Systems Sugical H&P ROS: Negative: Constitution, Cardiovascular, Respiratory, Neurological, Psychiatric, Hem-Onc, Allergic/Immunologic, Gastrointestinal, Genitourinary, Musculoskeletal, Integumentary, Endocrine and Eyes/Ears/Nose/Throat Exam Surgical H&P Exam: Normal: HEENT, Normal: Heart, Normal: Lungs, Normal: Extremities, Normal: Abdomen, Normal: Skin and Normal: Neurological Plan Diagnosis/Plan: Unchanged I have reviewed the history and physical and performed a pertinent physical examination on my patient. No changes have occurred unless specified.
--- NOTE | 2021-05-14 14:34 | PM.OP ---
Brief Operative Note Date of Service: 05/14/21 Pre-op diagnosis: screening and hx of GERD Post-op diagnosis: same Procedure: see op note Surgeon: Deisy Vu MD Anesthesia: MAC Was an Territory Development Manager used for this Procedure?: No Estimated blood loss (mL): 0 Condition: stable Disposition: PACU
--- NOTE | 2021-05-14 14:34 | W.PM.OPN ---
Operative Note Operative Note Date of Service: 05/14/21 Narrative: Operative Information Procedure Description: EGD, Colonoscopy FLEXIBLE TRANSORAL UPPER GASTROINTESTINAL ENDOSCOPY AND COLONOSCOPY PROCEDURE NOTE UPPER ENDOSCOPY Consent: Indications for the procedure and potential complications of bleeding, perforation, reaction to medications and missed diagnosis were discussed with the patient and informed consent was obtained. Instrument: Olympus GIF H 190 J mid size upper endoscope Monitoring: Vital signs and clinical assessment, continuous EKG monitoring, Pulse oximetry, Carbon Dioxide monitoring and blood pressure monitoring were done throughout the procedure. Procedure: The patient was placed in the left lateral decubitis position and pre-procedure medications were administered and a bite block was placed. The endoscope was inserted into the mouth and advanced under direct vision to the third part of duodenum. A careful inspection was made as the upper endoscope was withdrawn including a retroflexed examination of the proximal stomach; Findings and interventions are described below. Findings: Larynx:normal Esophagus: GE junction at 40 cm, diaphragm hiatus at 40 cm, esophagitis superficialis dissicans noted, bx taken Stomach: Patchy erythema salena antrum. Biopsies were obtained. Grade 2 flap valve on retroflexed examination of the cardia. Duodenum: Normal bulb and descending duodenum, bx taken Intervention: Biopsies as noted above COLONOSCOPY Instrument: Olympus variable stiffness pediatric scope 190L Colonoscopy Monitoring: Vital signs and clinical assessment, continuous EKG monitoring, Pulse oximetry, Carbon Dioxide monitoring and blood pressure monitoring were done throughout the procedure. Procedure: The patient was placed in the left lateral decubitis position and pre-procedure medications were administered. After a digital rectal examination of the ano-rectum, the video colonoscope was inserted into the rectum and advanced through the colon to the splenic flexure The colonoscope was slowly withdrawn in a retrograde panoramic fashion and the colon mucosa was carefully examined including a retroflexed view of the rectum. Findings and interventions are described below. Procedure Difficulty: easy Findings: Mucosa appeared normal but prep very poor at the splenic flexure the procedure was abandoned due to poor visualization Rectum: Retroflexion with internal hemorrhoids, grade I Anorectum - normal Colon preparation: poor prep Impression and Post Procedure Diagnosis: Endoscopy Findings: gastritis esophagitis Colonoscopy Findings: internal hemorrhoids, poor prep Plan: Await Pathology results Repeat Colonoscopy after reviewing prep in next few months High fiber diet leaflet avoid straining at stool, epsom salts and sitz bath, anusol supps or cream check PPi compliance and use of nsaids, meloxicam noted in chart Above findings were reviewed with the patient and relevant handouts were provided if indicated.
[2021-05-14 14:42] VITALS: BP 99/56; PULSE 64; RESP 16; TEMP 36.7; O2SAT 95
[2021-05-14 14:57] VITALS: BP 99/46; PULSE 71; RESP 18; TEMP 36.7; O2SAT 99
--- NOTE | 2021-05-14 15:40 | PC.NURSE ---
PATIENT WITH SOME REDNESS AND 2 SMALL HIVES BETWEEN BREASTS. PATIENT STATES THIS HAPPENED TO HER LAST TIME WITH ANESTHESIA. NO RESP DISTRESS. NO SOB. SPEAKS CLEARLY. DR. MEDRANO CAME OVER TO ASSESS PATIENT.
--- NOTE | 2021-05-14 16:01 | PC.NURSE ---
PATIENT BROUGHT OVER TO PACU TO AWAIT HER RIDE. REDNESS TO CHEST AREA GBEATLY DIMINISHED. NO RESP DISTRESS, NO SOB.
== END 2021-05-14 16:20 | disposition home or self-care (01) ==
PROVIDERS: PCP Internal Medicine; Visit Provider Internal Medicine Gastroenterology
PROC: (CPT 45378; principal; 2021-05-14 13:30)
DX: Z12.11 Encounter for screening for malignant neoplasm of colon (principal); K64.0 First degree hemorrhoids; K58.9 Irritable bowel syndrome, unspecified; K21.00 Gastro-esophageal reflux disease with esophagitis, without bleeding; K29.50 Unspecified chronic gastritis without bleeding; K44.9 Diaphragmatic hernia without obstruction or gangrene; D64.9 Anemia, unspecified; D72.819 Decreased white blood cell count, unspecified; G47.33 Obstructive sleep apnea (adult) (pediatric); E66.9 Obesity, unspecified; Z68.34 Body mass index [BMI] 34.0-34.9, adult; Z87.19 Personal history of other diseases of the digestive system; Z79.899 Other long term (current) drug therapy; Z88.0 Allergy status to penicillin; Z88.8 Allergy status to other drugs, medicaments and biological substances; Z87.891 Personal history of nicotine dependence
CPT/HCPCS: 45378; 43239; 88305; 88342

== ENCOUNTER → 2021-06-16 10:44 | Outpatient (BNVA) | payer OTHER, SELFPAY | PROVIDERS: PCP Internal Medicine; Visit Provider Anesthesiology | CPT/HCPCS: Q3014 ==

== ENCOUNTER → 2021-06-24 08:14 | Outpatient (BNVA) | payer OTHER, SELFPAY | PROVIDERS: PCP Internal Medicine; Visit Provider Dietitian, Registered | DX: E66.9 Obesity, unspecified (principal); Z68.35 Body mass index [BMI] 35.0-35.9, adult | CPT/HCPCS: 97803 ==

== ENCOUNTER → 2021-07-07 16:20 | Outpatient (BNV) | payer OTHER, SELFPAY | PROVIDERS: PCP Internal Medicine; Visit Provider Internal Medicine | DX: D72.819 Decreased white blood cell count, unspecified (principal) | CPT/HCPCS: 99212; 99213 ==

== ENCOUNTER → 2021-07-18 08:03 | Outpatient (BNVA) | payer OTHER, SELFPAY | PROVIDERS: PCP Internal Medicine; Visit Provider Physician Assistant | CPT/HCPCS: Q3014 ==

== ENCOUNTER 2021-08-13 09:10 | Day surgery (SDC) | payer OTHER, SELFPAY ==
--- NOTE | 2021-08-12 10:54 | P.CONAN_ITS ---
Documented by User: Loren Anders NP 08/25/21 12:00 HPI - Anesthesia Eval Consult details Narrative: 60yo F for Colonoscopy s/p EGD and [place] 05/2021 with [facility] Active Problems Active Problems: All Active Problems (Updated 07/08/21 @ 08:28 by Kiana Barcenas MD) Tracheobronchitis (Acute) Leucopenia (Chronic) Hypothyroid (Acute) MARLENY (obstructive sleep apnea) (Acute) Spondylosis of lumbosacral spine with radiculopathy (Acute) Failed back syndrome (Acute) Low TSH level (Acute) Encounter for screening colonoscopy (Acute) Obesity (BMI 30-39.9) (Acute) BMI 34.0-34.9,adult (Acute) Umbilical hernia (Acute) Liver cyst (Acute) History of small bowel obstruction (Acute) Lumbar degenerative disc disease (Acute) Hematuria (Acute) GERD (gastroesophageal reflux disease) (Acute) Past Medical History Medical History Anemia Arthritis BMI 34.0-34.9,adult Depression GERD (gastroesophageal reflux disease) Hematuria History of small bowel obstruction Hypothyroid IBS (irritable bowel syndrome) Leukopenia Liver cyst Lumbar degenerative disc disease Migraines Obesity (BMI 30-39.9) Sleep apnea Umbilical hernia Family History Family History Father FH: prostate cancer Mother Breast cancer Family history of problems with anesthesia: No Surgical History Surgical History H/O hernia repair H/O knee surgery H/O tubal ligation H/O: hysterectomy History of back surgery History of bilateral knee replacement History of bladder surgery History of delivery History of endometrial ablation History of surgery Hx of colonoscopy History of Problems with Anesthesia: No Social History Social History Household Members: None Housing: Apartment Alcohol intake: former Patient Tobacco Use Status: Former Tobacco user Quit Date: 2000 Tobacco use type: Cigarette Years Smoked: 25 e-Cigarette/Vaping Use: Never Used Second Hand Smoke Exposure: No service: No Current occupational status: unemployed and disabled Meds Allergies Allergy/AdvReac Type Severity Reaction Status Date / Time amoxicillin Allergy Intermediate rash Verified 08/19/21 15:02 [Augmentin] cat dander Allergy Intermediate NASAL Verified 08/19/21 15:02 SYMPTOMS clavulanic acid Allergy Intermediate rash Verified 08/19/21 15:02 [Augmentin] trazodone Allergy Intermediate I CAN'T Verified 08/19/21 15:02 [TRAZODONE] BREATHE RIGHT , shortness of breath Home Medications Medication Instructions Recorded Confirmed Last Taken Type calcium carbonate 500 mg PO DAILY 10/01/20 07/07/21 Unknown History 500 mg calcium (1,250 mg) tablet (Calcium 500) docusate sodium 100 mg PO DAILY 10/01/20 07/07/21 Unknown History 100 mg capsule (Stool Softener) glucosamine HCl 500 mg PO DAILY 10/01/20 07/07/21 Unknown History 500 mg tablet multivitamin 1 tab PO DAILY 10/01/20 07/07/21 Unknown History omega-3 fatty 1,000 mg PO 10/01/20 07/07/21 04/07/21 History acids 1,000 mg DAILY capsule (Fish Oil Concentrate) bupropion HCl 75 75 mg PO BEDTIME 04/04/21 07/07/21 Unknown History mg tablet clonazepam 0.5 mg 0.5 mg PO BID 04/04/21 07/07/21 Unknown History tablet PRN estradiol 1 g VAGINAL 04/04/21 07/07/21 Unknown History DAILY fluoxetine 20 mg 60 mg PO QAM 04/04/21 07/07/21 05/14/21 History capsule melatonin 5 mg 5 mg PO BEDTIME 04/04/21 07/07/21 Unknown History tablet metronidazole 1 appl TOPICAL 04/04/21 07/07/21 Unknown History 0.75 % topical BEDTIME gel quetiapine 300 mg 300 mg PO BID 04/04/21 07/07/21 Unknown History tablet Exam Exam Date and Time: August 12, 2021 1054 Assessment and Plan Assessment Anesthesia Assessment: Chart Reviewed Final Anesthetic Review Family History of Problems with Anesthesia: No History of Problems with Anesthesia: No Documented by User: Anca Muñiz MD 08/13/21 08:49 PMFSH Past Medical History Medical History Anemia Arthritis BMI 34.0-34.9,adult Depression GERD (gastroesophageal reflux disease) Hematuria History of small bowel obstruction Hypothyroid IBS (irritable bowel syndrome) Leukopenia Liver cyst Lumbar degenerative disc disease Migraines Obesity (BMI 30-39.9) Sleep apnea Umbilical hernia Functional capacity: independent ambulation Patient : No Family History Family History Father FH: prostate cancer Mother Breast cancer Surgical History Surgical History H/O hernia repair H/O knee surgery H/O tubal ligation H/O: hysterectomy History of back surgery History of bilateral knee replacement History of bladder surgery History of delivery History of endometrial ablation History of surgery Hx of colonoscopy Social History Social History Household Members: None Housing: Apartment Alcohol intake: former Patient Tobacco Use Status: Former Tobacco user Quit Date: 2000 Tobacco use type: Cigarette Years Smoked: 25 e-Cigarette/Vaping Use: Never Used Second Hand Smoke Exposure: No service: No Current occupational status: unemployed and disabled Meds Allergies Allergy/AdvReac Type Severity Reaction Status Date / Time amoxicillin Allergy Intermediate rash Verified 08/19/21 15:02 [Augmentin] cat dander Allergy Intermediate NASAL Verified 08/19/21 15:02 SYMPTOMS clavulanic acid Allergy Intermediate rash Verified 08/19/21 15:02 [Augmentin] trazodone Allergy Intermediate I CAN'T Verified 08/19/21 15:02 [TRAZODONE] BREATHE RIGHT , shortness of breath Home Medications Medication Instructions Recorded Confirmed Last Taken Type calcium carbonate 500 mg PO DAILY 10/01/20 07/07/21 Unknown History 500 mg calcium (1,250 mg) tablet (Calcium 500) docusate sodium 100 mg PO DAILY 10/01/20 07/07/21 Unknown History 100 mg capsule (Stool Softener) glucosamine HCl 500 mg PO DAILY 10/01/20 07/07/21 Unknown History 500 mg tablet multivitamin 1 tab PO DAILY 10/01/20 07/07/21 Unknown History omega-3 fatty 1,000 mg PO 10/01/20 07/07/21 04/07/21 History acids 1,000 mg DAILY capsule (Fish Oil Concentrate) bupropion HCl 75 75 mg PO BEDTIME 04/04/21 07/07/21 Unknown History mg tablet clonazepam 0.5 mg 0.5 mg PO BID 04/04/21 07/07/21 Unknown History tablet PRN estradiol 1 g VAGINAL 04/04/21 07/07/21 Unknown History DAILY fluoxetine 20 mg 60 mg PO QAM 04/04/21 07/07/21 05/14/21 History capsule melatonin 5 mg 5 mg PO BEDTIME 04/04/21 07/07/21 Unknown History tablet metronidazole 1 appl TOPICAL 04/04/21 07/07/21 Unknown History 0.75 % topical BEDTIME gel quetiapine 300 mg 300 mg PO BID 04/04/21 07/07/21 Unknown History tablet
--- NOTE | 2021-08-12 10:54 | HO.ANESPROP2 ---
Documented by User: Loren Anders NP 08/25/21 12:00 HPI - Anesthesia Eval Consult details Narrative: 60yo F for Colonoscopy s/p EGD and [place] 05/2021 with [facility] Active Problems Active Problems: All Active Problems (Updated 07/08/21 @ 08:28 by Kiana Barcenas MD) Tracheobronchitis (Acute) Leucopenia (Chronic) Hypothyroid (Acute) MARLENY (obstructive sleep apnea) (Acute) Spondylosis of lumbosacral spine with radiculopathy (Acute) Failed back syndrome (Acute) Low TSH level (Acute) Encounter for screening colonoscopy (Acute) Obesity (BMI 30-39.9) (Acute) BMI 34.0-34.9,adult (Acute) Umbilical hernia (Acute) Liver cyst (Acute) History of small bowel obstruction (Acute) Lumbar degenerative disc disease (Acute) Hematuria (Acute) GERD (gastroesophageal reflux disease) (Acute) Past Medical History Medical History Anemia Arthritis BMI 34.0-34.9,adult Depression GERD (gastroesophageal reflux disease) Hematuria History of small bowel obstruction Hypothyroid IBS (irritable bowel syndrome) Leukopenia Liver cyst Lumbar degenerative disc disease Migraines Obesity (BMI 30-39.9) Sleep apnea Umbilical hernia Family History Family History Father FH: prostate cancer Mother Breast cancer Family history of problems with anesthesia: No Surgical History Surgical History H/O hernia repair H/O knee surgery H/O tubal ligation H/O: hysterectomy History of back surgery History of bilateral knee replacement History of bladder surgery History of delivery History of endometrial ablation History of surgery Hx of colonoscopy History of Problems with Anesthesia: No Social History Social History Household Members: None Housing: Apartment Alcohol intake: former Patient Tobacco Use Status: Former Tobacco user Quit Date: 2000 Tobacco use type: Cigarette Years Smoked: 25 e-Cigarette/Vaping Use: Never Used Second Hand Smoke Exposure: No service: No Current occupational status: unemployed and disabled Meds Allergies Allergy/AdvReac Type Severity Reaction Status Date / Time amoxicillin [Augmentin] Allergy Intermediate rash Verified 08/19/21 15:02 cat dander Allergy Intermediate NASAL Verified 08/19/21 15:02 SYMPTOMS clavulanic acid [Augmentin] Allergy Intermediate rash Verified 08/19/21 15:02 trazodone [TRAZODONE] Allergy Intermediate I CAN'T Verified 08/19/21 15:02 BREATHE RIGHT , shortness of breath Home Medications Medication Instructions Recorded Confirmed Last Taken Type calcium carbonate 500 mg calcium 500 mg PO DAILY 10/01/20 07/07/21 Unknown History (1,250 mg) tablet (Calcium 500) docusate sodium 100 mg capsule 100 mg PO DAILY 10/01/20 07/07/21 Unknown History (Stool Softener) glucosamine HCl 500 mg tablet 500 mg PO DAILY 10/01/20 07/07/21 Unknown History multivitamin 1 tab PO DAILY 10/01/20 07/07/21 Unknown History omega-3 fatty acids 1,000 mg 1,000 mg PO DAILY 10/01/20 07/07/21 04/07/21 History capsule (Fish Oil Concentrate) bupropion HCl 75 mg tablet 75 mg PO BEDTIME 04/04/21 07/07/21 Unknown History clonazepam 0.5 mg tablet 0.5 mg PO BID PRN 04/04/21 07/07/21 Unknown History estradiol 1 g VAGINAL DAILY 04/04/21 07/07/21 Unknown History fluoxetine 20 mg capsule 60 mg PO QAM 04/04/21 07/07/21 05/14/21 History melatonin 5 mg tablet 5 mg PO BEDTIME 04/04/21 07/07/21 Unknown History metronidazole 0.75 % topical gel 1 appl TOPICAL BEDTIME 04/04/21 07/07/21 Unknown History quetiapine 300 mg tablet 300 mg PO BID 04/04/21 07/07/21 Unknown History Exam Exam Date and Time: August 12, 2021 1054 Assessment and Plan Assessment Anesthesia Assessment: Chart Reviewed Final Anesthetic Review Family History of Problems with Anesthesia: No History of Problems with Anesthesia: No Documented by User: Anca Muñiz MD 08/13/21 08:49 PMFSH Past Medical History Medical History Anemia Arthritis BMI 34.0-34.9,adult Depression GERD (gastroesophageal reflux disease) Hematuria History of small bowel obstruction Hypothyroid IBS (irritable bowel syndrome) Leukopenia Liver cyst Lumbar degenerative disc disease Migraines Obesity (BMI 30-39.9) Sleep apnea Umbilical hernia Functional capacity: independent ambulation Patient : No Family History Family History Father FH: prostate cancer Mother Breast cancer Surgical History Surgical History H/O hernia repair H/O knee surgery H/O tubal ligation H/O: hysterectomy History of back surgery History of bilateral knee replacement History of bladder surgery History of delivery History of endometrial ablation History of surgery Hx of colonoscopy Social History Social History Household Members: None Housing: Apartment Alcohol intake: former Patient Tobacco Use Status: Former Tobacco user Quit Date: 2000 Tobacco use type: Cigarette Years Smoked: 25 e-Cigarette/Vaping Use: Never Used Second Hand Smoke Exposure: No service: No Current occupational status: unemployed and disabled Meds Allergies Allergy/AdvReac Type Severity Reaction Status Date / Time amoxicillin [Augmentin] Allergy Intermediate rash Verified 08/19/21 15:02 cat dander Allergy Intermediate NASAL Verified 08/19/21 15:02 SYMPTOMS clavulanic acid [Augmentin] Allergy Intermediate rash Verified 08/19/21 15:02 trazodone [TRAZODONE] Allergy Intermediate I CAN'T Verified 08/19/21 15:02 BREATHE RIGHT , shortness of breath Home Medications Medication Instructions Recorded Confirmed Last Taken Type calcium carbonate 500 mg calcium 500 mg PO DAILY 10/01/20 07/07/21 Unknown History (1,250 mg) tablet (Calcium 500) docusate sodium 100 mg capsule 100 mg PO DAILY 10/01/20 07/07/21 Unknown History (Stool Softener) glucosamine HCl 500 mg tablet 500 mg PO DAILY 10/01/20 07/07/21 Unknown History multivitamin 1 tab PO DAILY 10/01/20 07/07/21 Unknown History omega-3 fatty acids 1,000 mg 1,000 mg PO DAILY 10/01/20 07/07/21 04/07/21 History capsule (Fish Oil Concentrate) bupropion HCl 75 mg tablet 75 mg PO BEDTIME 04/04/21 07/07/21 Unknown History clonazepam 0.5 mg tablet 0.5 mg PO BID PRN 04/04/21 07/07/21 Unknown History estradiol 1 g VAGINAL DAILY 04/04/21 07/07/21 Unknown History fluoxetine 20 mg capsule 60 mg PO QAM 04/04/21 07/07/21 05/14/21 History melatonin 5 mg tablet 5 mg PO BEDTIME 04/04/21 07/07/21 Unknown History metronidazole 0.75 % topical gel 1 appl TOPICAL BEDTIME 04/04/21 07/07/21 Unknown History quetiapine 300 mg tablet 300 mg PO BID 04/04/21 07/07/21 Unknown History
[2021-08-13 09:24] VITALS: BP 102/61; PULSE 72; RESP 15; TEMP 37.2; O2SAT 99; BMI 35.2
--- NOTE | 2021-08-13 10:06 | MHC.SHP ---
Pre-Procedural Eval Section A Date of Service: 08/13/21 Section B Chief Complaint: Screening Relevant Family History (Specify if Yes): No Relevant Social History: Other (specify) Present Medications: see Short Stay Collaborative assessment Medical History: Significant History (Anemia Arthritis BMI 34.0-34.9,adult Depression GERD (gastroesophageal reflux disease) Hematuria History of small bowel obstruction Hypothyroid IBS (irritable bowel syndrome) Leukopenia Liver cyst Lumbar degenerative disc disease Migraines Obesity (BMI 30-39.9) Sleep apnea Umbilical hernia) History of Previous Operations: Relevant previous surgery/procedure and date(s) (H/O hernia repair H/O knee surgery H/O tubal ligation H/O: hysterectomy History of back surgery History of bilateral knee replacement History of bladder surgery History of delivery History of endometrial ablation History of surgery Hx of colonoscopy) Allergies: Allergies Allergy/AdvReac Type Severity Reaction Status Date / Time amoxicillin [Augmentin] Allergy Intermediate rash Verified 07/07/21 16:42 cat dander Allergy Intermediate NASAL Verified 07/07/21 16:42 SYMPTOMS clavulanic acid [Augmentin] Allergy Intermediate rash Verified 07/07/21 16:42 trazodone [TRAZODONE] Allergy Intermediate I CAN'T Verified 07/07/21 16:42 BREATHE RIGHT , shortness of breath Review of Systems Sugical H&P ROS: Negative: Constitution, Cardiovascular, Respiratory, Neurological, Psychiatric, Hem-Onc, Allergic/Immunologic, Gastrointestinal, Genitourinary, Musculoskeletal, Integumentary, Endocrine and Eyes/Ears/Nose/Throat Exam Surgical H&P Exam: Normal: HEENT, Normal: Heart, Normal: Lungs, Normal: Extremities, Normal: Abdomen, Normal: Skin and Normal: Neurological Plan Diagnosis/Plan: Unchanged I have reviewed the history and physical and performed a pertinent physical examination on my patient. No changes have occurred unless specified.
--- NOTE | 2021-08-13 10:36 | P.CONAN_ITS ---
COUNTS INCLUDE 234 BEDS AT THE [facility] Active Problems Active Problems: All Active Problems (Updated 07/08/21 @ 08:28 by Kiana Barcenas MD) Tracheobronchitis (Acute) Leucopenia (Chronic) Hypothyroid (Acute) MARLENY (obstructive sleep apnea) (Acute) Spondylosis of lumbosacral spine with radiculopathy (Acute) Failed back syndrome (Acute) Low TSH level (Acute) Encounter for screening colonoscopy (Acute) Obesity (BMI 30-39.9) (Acute) BMI 34.0-34.9,adult (Acute) Umbilical hernia (Acute) Liver cyst (Acute) History of small bowel obstruction (Acute) Lumbar degenerative disc disease (Acute) Hematuria (Acute) GERD (gastroesophageal reflux disease) (Acute) Past Medical History Medical History Anemia Arthritis BMI 34.0-34.9,adult Depression GERD (gastroesophageal reflux disease) Hematuria History of small bowel obstruction Hypothyroid IBS (irritable bowel syndrome) Leukopenia Liver cyst Lumbar degenerative disc disease Migraines Obesity (BMI 30-39.9) Sleep apnea Umbilical hernia Functional capacity: independent ambulation Patient : No Family History Family History Father FH: prostate cancer Mother Breast cancer Family history of problems with anesthesia: No Surgical History Surgical History H/O hernia repair H/O knee surgery H/O tubal ligation H/O: hysterectomy History of back surgery History of bilateral knee replacement History of bladder surgery History of delivery History of endometrial ablation History of surgery Hx of colonoscopy History of Problems with Anesthesia: No Social History Social History Household Members: None Housing: Apartment Alcohol intake: former Patient Tobacco Use Status: Former Tobacco user Quit Date: 2000 Tobacco use type: Cigarette Years Smoked: 25 e-Cigarette/Vaping Use: Never Used Second Hand Smoke Exposure: No Use of substances other than those prescribed or required for medical reasons: No Advance Directives: No Advance Directives Information Provided: Yes Recently lost weight without trying: No Patient : No service: No Current occupational status: unemployed and disabled Meds Allergies Allergy/AdvReac Type Severity Reaction Status Date / Time amoxicillin [Augmentin] Allergy Intermediate rash Verified 07/07/21 16:42 cat dander Allergy Intermediate NASAL Verified 07/07/21 16:42 SYMPTOMS clavulanic acid [Augmentin] Allergy Intermediate rash Verified 07/07/21 16:42 trazodone [TRAZODONE] Allergy Intermediate I CAN'T Verified 07/07/21 16:42 BREATHE RIGHT , shortness of breath Active Medications: Current Medications Lactated Ringer's (Lr) 1,000 mls @ 100 mls/hr IVCONT .Q10H PENDING SALE TO [facility] Home Medications Medication Instructions Recorded Confirmed Last Taken Type calcium carbonate 500 mg calcium 500 mg PO DAILY 10/01/20 07/07/21 Unknown History (1,250 mg) tablet (Calcium 500) docusate sodium 100 mg capsule 100 mg PO DAILY 10/01/20 07/07/21 Unknown History (Stool Softener) glucosamine HCl 500 mg tablet 500 mg PO DAILY 10/01/20 07/07/21 Unknown History multivitamin 1 tab PO DAILY 10/01/20 07/07/21 Unknown History omega-3 fatty acids 1,000 mg 1,000 mg PO DAILY 10/01/20 07/07/21 04/07/21 History capsule (Fish Oil Concentrate) bupropion HCl 75 mg tablet 75 mg PO BEDTIME 04/04/21 07/07/21 Unknown History clonazepam 0.5 mg tablet 0.5 mg PO BID PRN 04/04/21 07/07/21 Unknown History estradiol 1 g VAGINAL DAILY 04/04/21 07/07/21 Unknown History fluoxetine 20 mg capsule 60 mg PO QAM 04/04/21 07/07/21 05/14/21 History melatonin 5 mg tablet 5 mg PO BEDTIME 04/04/21 07/07/21 Unknown History metronidazole 0.75 % topical gel 1 appl TOPICAL BEDTIME 04/04/21 07/07/21 Unknown History quetiapine 300 mg tablet 300 mg PO BID 04/04/21 07/07/21 Unknown History Exam Exam Date and Time: August 13, 2021 1036 Height,Weight and Vital Signs: Height 5 ft 7 in Weight 102.058 kg Last Vital Signs Temp 98.9 F 08/13/21 09:24 Pulse 72 08/13/21 09:24 Resp 15 08/13/21 09:24 BP 102/61 08/13/21 09:24 Pulse Ox 99 08/13/21 09:24 Airway Mallampati Class: II TM Dist: >3cm Denture: Upper and Lower Heart: RRR Lungs: CTA Assessment and Plan Final Anesthetic Review Family History of Problems with Anesthesia: No History of Problems with Anesthesia: No ASA Class: II Final Preanesthetic Review: No Changes in Pt Med Stat, Meds/Allgs Chart Reviewed, Consent Obtained/Reviewed and Anes Risks/Benef Reviewed Patient Risk: Low Procedure Risk: Low Anesthetic Plan Anesthetic Plan: MAC: Disposition: Standard PACU
--- NOTE | 2021-08-13 11:02 | P.OP_ITS ---
Operative Note Operative Note Date of Service: 08/13/21 Narrative: Operative Information Procedure Description: Colonoscopy COLONOSCOPY Instrument: Olympus variable stiffness adult scope 190L Colonoscopy Monitoring: Vital signs and clinical assessment, continuous EKG monitoring, Pulse oximetry, Carbon Dioxide monitoring and blood pressure monitoring were done throughout the procedure. Colon withdrawal time was 12 minutes. Procedure: The patient was placed in the left lateral decubitis position and pre-procedure medications were administered. After a digital rectal examination of the ano-rectum, the video colonoscope was inserted into the rectum and advanced through the colon to the cecum/TI. The colonoscope was slowly withdrawn in a retrograde panoramic fashion and the colon mucosa was carefully examined including a retroflexed view of the rectum. Findings and interventions are described below. Procedure Difficulty: moderate Findings: Terminal Ileum-normal Cecum:normal Ascending Colon: normal Transverse Colon -normal Descending Colon:normal Sigmoid Colon: normal Rectum: Retroflexion with small internal hemorrhoids, grade II Anorectum - normal, internal hemorrhoids seen at anal verge Colon preparation: Aristes Bowel Preparation Scale Right colon; 2 Transverse colon: 1 Left colon; 1 (0 = Unprepared colon segment with mucosa not seen due to solid stool that cannot be cleared. 1 = Portion of mucosa of the colon segment seen, but other areas of the colon segment not well seen due to staining, residual stool and/or opaque liquid. 2 = Minor amount of residual staining, small fragments of stool and/or opaque liquid, but mucosa of colon segment seen well. 3 = Entire mucosa of colon segment seen well with no residual staining, small fragments of stool or opaque liquid) Impression and Post Procedure Diagnosis: internal hemorrhoids fair to poor prep Plan: High fiber diet leaflet Avoid straining at stool, epsom salts and sitz bath, anusol supps or cream Repeat Colonoscopy in 1 year or earlier if clinically indicated next time might have to use laxatives for several days along with prep and 2 d clear diet Above findings were reviewed with the patient and relevant handouts were provided if indicated.
--- NOTE | 2021-08-13 11:02 | PM.OP ---
Brief Operative Note Date of Service: 08/13/21 Pre-op diagnosis: screening Post-op diagnosis: same Procedure: see op note Surgeon: Deisy Vu MD Anesthesia: MAC Was an [employer] Sprayer used for this Procedure?: No Estimated blood loss (mL): 0 Condition: stable Disposition: PACU
[2021-08-13 11:07] VITALS: BP 90/53; PULSE 61; RESP 16; TEMP 36.7; O2SAT 99
[2021-08-13 11:22] VITALS: BP 133/75; PULSE 72; RESP 16; TEMP 36.7; O2SAT 98
--- NOTE | 2021-08-13 12:00 | HO.POSTANES ---
Post Anesthesia Evaluation Post Anesthesia Evaluation Vital Signs: Vital Signs Temp Pulse Resp BP Pulse Ox 08/13/21 11:22 98.0 F 72 16 133/75 98 08/13/21 11:07 98.0 F 61 16 90/53 L 99 08/13/21 09:24 98.9 F 72 15 102/61 99 Anesthesia: Monitored Mental Status: Awake Pain Control: Satisfactory Nausea/Vomiting: None Hydration: Adequate Anesthesia-Related Issues: No Anes. Related Issues
== END 2021-08-13 12:00 | disposition home or self-care (01) ==
PROVIDERS: PCP Internal Medicine; Visit Provider Internal Medicine Gastroenterology
PROC: 0DJD8ZZ Inspection of Lower Intestinal Tract, Via Natural or Artificial Opening Endoscopic (ICD-10-PCS; CPT 45378; principal; 2021-08-13 10:20)
DX: Z12.11 Encounter for screening for malignant neoplasm of colon (principal); K64.1 Second degree hemorrhoids; K58.9 Irritable bowel syndrome, unspecified; K21.9 Gastro-esophageal reflux disease without esophagitis; D64.9 Anemia, unspecified; D72.819 Decreased white blood cell count, unspecified; F32.9 Major depressive disorder, single episode, unspecified; G47.33 Obstructive sleep apnea (adult) (pediatric); E03.9 Hypothyroidism, unspecified; E66.9 Obesity, unspecified; Z68.34 Body mass index [BMI] 34.0-34.9, adult; Z79.899 Other long term (current) drug therapy; Z88.0 Allergy status to penicillin; Z88.8 Allergy status to other drugs, medicaments and biological substances; Z87.891 Personal history of nicotine dependence; Z96.653 Presence of artificial knee joint, bilateral
CPT/HCPCS: G0121

== ENCOUNTER 2021-08-19 06:00 | Outpatient (REF) | payer OTHER, SELFPAY ==
--- NOTE | ~2021-08-19 | FL_ITS ---
EXAMINATION: XR FLUOROSCOPY WITH IMAGES CLINICAL INFORMATION: M96.1 - Postlaminectomy syndrome, not elsewhere classified COMPARISON: CT abdomen and pelvis 10/08/2020 TECHNIQUE: Fluoroscopy performed by Dr. Edwin Mahoney. Fluoroscopy time: 0.2 minutes DAP: 2.84 Gycm2 Images: 1 FINDINGS: There is spinal needle overlying lumbar spine at approximately interlaminar L2-L3. Again, there are degenerative disc changes and variable vertebral spurring as noted on CT. FL/FL guidance in treatment room IMPRESSION: Fluoroscopy for pain management procedure.
== END 2021-08-19 06:01 | disposition home or self-care (01) ==
LOC: HO.RADIR 06:00
PROVIDERS: Visit Provider Anesthesiology
DX: M47.27 Other spondylosis with radiculopathy, lumbosacral region (principal); M96.1 Postlaminectomy syndrome, not elsewhere classified
CPT/HCPCS: 62323; J1170; Q9967

== ENCOUNTER → 2021-10-02 14:45 | Outpatient (BNVA) | payer OTHER, SELFPAY | PROVIDERS: PCP Internal Medicine; Referring Provider Internal Medicine; Visit Provider Physician Assistant | DX: K21.9 Gastro-esophageal reflux disease without esophagitis (principal); K59.09 Other constipation | CPT/HCPCS: 99212 ==

== ENCOUNTER 2021-10-10 09:54 | Day surgery (SDC) | payer OTHER, SELFPAY ==
[2021-10-07 12:34] VITALS: BMI 36.3
[2021-10-10] VITALS (7 sets, daily range): BP systolic 104–111; BP diastolic 58–65; PULSE 54–75; RESP 16–18; TEMP 36.3–36.8; O2SAT 97–99
--- NOTE | ~2021-10-10 | FL_ITS ---
EXAMINATION: XR FLUOROSCOPY WITH IMAGES CLINICAL INFORMATION: Spinal drug delivery COMPARISON: CT abdomen 10/08/2020 TECHNIQUE: Fluoroscopy performed by Dr. Edwin Mahoney. Fluoroscopy time: 0.2 minutes DAP: 2.83 Gycm2 Images: 2 FINDINGS: There is interlaminar spinal needle at level of L2-L3. Variable degenerative changes are present with multilevel vertebral spurring. FL/FL guidance in OR IMPRESSION: Fluoroscopy for pain management procedure.
--- NOTE | 2021-10-10 10:37 | P.CONAN_ITS ---
[facility] Active Problems Active Problems: All Active Problems (Updated 10/02/21 @ 15:23 by Becky Loza PA-C) Chronic constipation (Acute) Tracheobronchitis (Acute) Leucopenia (Chronic) Hypothyroid (Acute) MARLENY (obstructive sleep apnea) (Acute) Spondylosis of lumbosacral spine with radiculopathy (Acute) Failed back syndrome (Acute) Low TSH level (Acute) Encounter for screening colonoscopy (Acute) Obesity (BMI 30-39.9) (Acute) BMI 34.0-34.9,adult (Acute) Umbilical hernia (Acute) Liver cyst (Acute) History of small bowel obstruction (Acute) Lumbar degenerative disc disease (Acute) Hematuria (Acute) GERD (gastroesophageal reflux disease) (Acute) Past Medical History Medical History Anemia Arthritis BMI 34.0-34.9,adult Depression GERD (gastroesophageal reflux disease) Hematuria History of small bowel obstruction Hypothyroid IBS (irritable bowel syndrome) Leukopenia Liver cyst Lumbar degenerative disc disease Migraines Obesity (BMI 30-39.9) Sleep apnea Umbilical hernia Family History Family History Father FH: prostate cancer Mother Breast cancer Family history of problems with anesthesia: No Surgical History Surgical History H/O hernia repair H/O knee surgery H/O tubal ligation H/O: hysterectomy History of back surgery History of bilateral knee replacement History of bladder surgery History of delivery History of endometrial ablation History of esophagogastroduodenoscopy (EGD) History of surgery Hx of colonoscopy History of Problems with Anesthesia: No Social History Social History Household Members: None Housing: Apartment Alcohol intake: former Patient Tobacco Use Status: Former Tobacco user Quit Date: 1999 Tobacco use type: Cigarette Years Smoked: 25 e-Cigarette/Vaping Use: Never Used Second Hand Smoke Exposure: No Are you DNR?: No Advance Directives: No Advance Directives Information Provided: Yes Advance Directives on File: No service: No Current occupational status: unemployed and disabled Meds Allergies Allergy/AdvReac Type Severity Reaction Status Date / Time amoxicillin [Augmentin] Allergy Intermediate rash Verified 10/07/21 12:33 cat dander Allergy Intermediate NASAL Verified 10/07/21 12:33 SYMPTOMS clavulanic acid [Augmentin] Allergy Intermediate rash Verified 10/07/21 12:33 trazodone [TRAZODONE] Allergy Intermediate I CAN'T Verified 10/07/21 12:33 BREATHE RIGHT , shortness of breath Home Medications Medication Instructions Recorded Confirmed Last Taken Type calcium carbonate 500 mg calcium 500 mg PO DAILY 10/01/20 10/07/21 Unknown History (1,250 mg) tablet (Calcium 500) docusate sodium 100 mg capsule 100 mg PO DAILY 10/01/20 10/07/21 Unknown History (Stool Softener) glucosamine HCl 500 mg tablet 500 mg PO DAILY 10/01/20 10/07/21 Unknown History multivitamin 1 tab PO DAILY 10/01/20 10/07/21 Unknown History omega-3 fatty acids 1,000 mg 1,000 mg PO DAILY 10/01/20 10/07/21 04/07/21 History capsule (Fish Oil Concentrate) bupropion HCl 75 mg tablet 75 mg PO BEDTIME 04/04/21 10/07/21 Unknown History clonazepam 0.5 mg tablet 0.5 mg PO BID PRN 04/04/21 10/07/21 Unknown History estradiol 1 g VAGINAL DAILY 04/04/21 10/07/21 Unknown History fluoxetine 20 mg capsule 60 mg PO QAM 04/04/21 10/07/21 05/14/21 History melatonin 5 mg tablet 5 mg PO BEDTIME 04/04/21 10/07/21 Unknown History metronidazole 0.75 % topical gel 1 appl TOPICAL BEDTIME 04/04/21 10/07/21 Unknown History quetiapine 300 mg tablet 300 mg PO BID 04/04/21 10/07/21 Unknown History Exam Exam Date and Time: October 10, 2021 1037 Height,Weight and Vital Signs: Height 5 ft 6 in Weight 102.058 kg Last Vital Signs Temp 97.3 F 10/10/21 10:08 Pulse 71 10/10/21 10:08 Resp 18 10/10/21 10:08 BP 107/64 10/10/21 10:08 Pulse Ox 97 10/10/21 10:08 Airway Mallampati Class: II (Edentulous) TM Dist: >3cm Neck ROM: Full Denture: Upper and Lower Loose/Missing/Broken Teeth: Yes, Upper and Lower Heart: RRR Lungs: CTA Assessment and Plan Assessment Anesthesia Assessment: Anesthesia Plan Discussed and Chart Reviewed Final Anesthetic Review Family History of Problems with Anesthesia: No History of Problems with Anesthesia: No NPO: Yes ASA Class: II Final Preanesthetic Review: Meds/Allgs Chart Reviewed, Consent Obtained/Reviewed and Anes Risks/Benef Reviewed Patient Risk: Low Procedure Risk: Intermediate Anesthetic Plan Anesthetic Plan: MAC: Disposition: Standard PACU
--- NOTE | 2021-10-10 11:27 | MHC.SHP ---
Pre-Procedural Eval Section A Date of Service: 10/10/21 Section B Chief Complaint: Failed Back Syndrome Details of Present Illness: as above Relevant Family History (Specify if Yes): No Relevant Social History: None Present Medications: see Short Stay Collaborative assessment Medical History: No relevant PMH History of Previous Operations: Relevant previous surgery/procedure and date(s) Allergies: Allergies Allergy/AdvReac Type Severity Reaction Status Date / Time amoxicillin [Augmentin] Allergy Intermediate rash Verified 10/07/21 12:33 cat dander Allergy Intermediate NASAL Verified 10/07/21 12:33 SYMPTOMS clavulanic acid [Augmentin] Allergy Intermediate rash Verified 10/07/21 12:33 trazodone [TRAZODONE] Allergy Intermediate I CAN'T Verified 10/07/21 12:33 BREATHE RIGHT , shortness of breath Review of Systems Sugical H&P ROS: Negative: Constitution, Cardiovascular, Respiratory, Neurological, Psychiatric, Hem-Onc, Allergic/Immunologic, Gastrointestinal, Genitourinary, Musculoskeletal, Integumentary, Endocrine and Eyes/Ears/Nose/Throat Exam Surgical H&P Exam: Normal: HEENT, Normal: Heart, Normal: Lungs, Normal: Extremities, Normal: Abdomen, Normal: Skin and Normal: Neurological Plan Diagnosis/Plan: Unchanged I have reviewed the history and physical and performed a pertinent physical examination on my patient. No changes have occurred unless specified.
--- NOTE | 2021-10-10 12:13 | PM.OP ---
Brief Operative Note Date of Service: 10/10/21 Pre-op diagnosis: postlaminectomy syndrome Post-op diagnosis: same Procedure: trial of ITDD with dilaudid Implants: none Surgeon: Edwin Mahoney MD Was an Community Support Associate used for this Procedure?: No Estimated blood loss (mL): 0 Pathology: none sent Condition: stable Disposition: PACU
--- NOTE | 2021-10-10 13:59 | P.OP_ITS ---
Operative Note Operative Note Date of Service: 10/10/21 Narrative: Mayte Mccurdy is very pleasant 60 years old lady who came to OR for the trial of the intrathecal drug delivery system pain pump l the attempt to treat postlaminectomy syndrome. After obtaining informed consent patient was brought to the operating room, HE was positioned prone on operating table, [place] [employer] monitors were applied and patient was moderately sedated. ? Time-out was performed delineating correct site, side, the nature of the procedure, patient's allergy, preoperative antibiotic if needed.? All operating room staff was participating in OR time-out procedure. He received preoperatively clindamycin 900 mg IV approximately 20 minutes before the procedure. Patient's entire back was prepped with ChloraPrep twice and draped with sterile utility drapes.? Sterilely draped C-arm was brought over operating field and square picture of L3 and L4 vertebra were demonstrated on the screen. The projection of the lamina of L4 vertebra on the right to the skin was injected with lidocaine 2%. After that 22 gauge 22 gauge 3-1/2 inch needle was inserted through the skin wheal and was advanced to were the intrathecal space on anterior posterior and lateral views. When on lateral view needle entered the center of the spinal canal the stylet was removed and clear flow CSF was demonstrated from the hub of the needle. Eighty micro g of preservative-free hydromorphone was injected into the needle. Upon completion of the injection the needle was removed sterile dressing was applied. The patient tolerated procedure well. She was taking outside of the operating room to recovery room w here she recovered uneventfully.
== END 2021-10-10 14:27 | disposition home or self-care (01) ==
PROVIDERS: PCP Internal Medicine; Visit Provider Anesthesiology
PROC: (CPT 62323; principal; 2021-10-10 11:40)
DX: M47.27 Other spondylosis with radiculopathy, lumbosacral region (principal); M96.1 Postlaminectomy syndrome, not elsewhere classified; M53.3 Sacrococcygeal disorders, not elsewhere classified; M51.36 Other intervertebral disc degeneration, lumbar region; D64.9 Anemia, unspecified; G47.30 Sleep apnea, unspecified; E66.9 Obesity, unspecified; Z68.35 Body mass index [BMI] 35.0-35.9, adult; Z88.0 Allergy status to penicillin; Z88.8 Allergy status to other drugs, medicaments and biological substances; Z96.653 Presence of artificial knee joint, bilateral; Z87.891 Personal history of nicotine dependence; Z79.899 Other long term (current) drug therapy
CPT/HCPCS: 62323; J1170; J2250; J3010; Q9967

== ENCOUNTER → 2021-10-15 15:05 | Outpatient (BNVA) | payer OTHER, SELFPAY | PROVIDERS: PCP Internal Medicine; Visit Provider Anesthesiology | DX: M47.27 Other spondylosis with radiculopathy, lumbosacral region (principal); M96.1 Postlaminectomy syndrome, not elsewhere classified | CPT/HCPCS: 99212 ==

== ENCOUNTER 2021-10-17 14:00 | Outpatient (REF) | payer OTHER, SELFPAY ==
--- NOTE | ~2021-10-17 | MM_ITS ---
EXAMINATION: MM SCREENING DIGITAL BREAST TOMOSYNTHESIS, BILATERAL CLINICAL INFORMATION: Screening. Asymptomatic. The lifetime risk of breast cancer based on the Tyrer-Cuzick Model is 11%. COMPARISON: Mammography: 06/18/2020, 01/09/2019, 12/22/2017 TECHNIQUE: Digital breast tomosynthesis is performed in both the craniocaudal and mediolateral oblique views along with computer-aided detection (CAD). Synthesized 2D images are generated from the tomosynthesis. FINDINGS: The breasts are almost entirely fatty (ACR BI-RADS breast composition Category a). There are no significant masses, abnormal calcifications, or other abnormalities. Background stromal and fibroglandular densities are stable. Parenchymal pattern is similar to prior studies. Biopsy clip marker again noted on the left. MM/MM tomosynthesis screening BI IMPRESSION: No mammographic evidence of malignancy. ASSESSMENT: BI-RADS 1: Negative RECOMMENDATION: Routine annual mammography screening. This patient's information was entered into a reminder system with a target due date for their next mammogram.
== END 2021-10-17 14:01 | disposition home or self-care (01) ==
LOC: HO.MAMMO 14:00
PROVIDERS: PCP Internal Medicine; Visit Provider Obstetrics & Gynecology
DX: Z12.31 Encounter for screening mammogram for malignant neoplasm of breast (principal)
CPT/HCPCS: 77063; 77067

== ENCOUNTER → 2021-11-17 16:20 | Outpatient (BNVA) | payer OTHER, SELFPAY | PROVIDERS: PCP Internal Medicine; Referring Provider Internal Medicine; Visit Provider Physician Assistant | DX: E66.9 Obesity, unspecified (principal); Z68.35 Body mass index [BMI] 35.0-35.9, adult | CPT/HCPCS: 99212 ==

== ENCOUNTER 2021-12-13 09:57 | Outpatient (REF) | payer OTHER, SELFPAY ==
[2021-12-13 10:10] LABS: MANUAL DIFF FLAG NO
[2021-12-13 10:43] LABS: Basophils Percent Auto 0.6 % (0-2); Eosinophils Absolute Auto 0.1 X10*3/uL (0.0-0.4); Eosinophils Percent Auto 2.6 % (0-4); Hematocrit 35.3 % (37.0-47.0); Hemoglobin 11.1 g/dl (12.0-16.0); Imm Gran Abs Auto 0.01 X10*3/uL (0.00-0.03); Imm Gran Pct Auto 0.3 % (0.0-0.4); Lymphocytes Absolute Auto 1.3 X10*3/uL (1.2-4.9); Lymphocytes Percent Auto 35.6 % (20-40); Mean Corpuscular HGB Conc 31.4 g/dl (31.0-35.0); Mean Corpuscular Hemoglobin 30.7 pg (27.0-33.0); Mean Corpuscular Volume 97.5 fL (80.0-98.0); Mean Platelet Volume 9.5 fL (9.4-12.3); Monocytes Absolute Auto 0.4 X10*3/uL (0.1-1.2); Neutrophils Absolute Auto 1.8 x10*3/uL (2.0-8.3); Neutrophils Percent Auto 50.9 % (45-73); Platelet Count 185 X10*3/uL (160-400); Red Blood Count 3.62 X10*6/uL (4.20-5.50); Red Cell Distribution Width 14.1 % (11.0-16.0); White Blood Count 3.5 X10*3/uL (4.8-10.8)
[2021-12-13 11:23] LABS: Alanine Aminotransferase 15 U/L (0-31); Albumin Level 3.8 g/dL (3.5-5.0); Alkaline Phosphatase 78 U/L (39-117); Anion Gap 11 (12-20); Aspartate Amino Transferase 20 U/L (5-31); Bilirubin Total 0.3 mg/dL (0.0-1.0); Blood Urea Nitrogen 22 mg/dL (9-16); Calcium 9.6 mg/dL (8.4-10.2); Carbon Dioxide 29 mmol/L (22-29); Chloride 105 mmol/L (96-108); Estimated Glomerular Filt Rate > 60; Glucose Fasting 84 mg/dL (60-99); Potassium 4.6 mmol/L (3.3-5.1); Sodium 140 mmol/L (135-145); Total Protein 6.2 g/dL (6.5-8.0)
[2021-12-13 11:35] LABS: Thyroid Stimulating Hormone 4.12 uIU/mL (0.32-4.0); Vitamin D 25-OH Total 30.3 ng/mL (>30)
== END 2021-12-13 09:58 | disposition home or self-care (01) ==
LOC: HO.LAB 09:57
PROVIDERS: PCP Internal Medicine; Visit Provider Internal Medicine
DX: E55.9 Vitamin D deficiency, unspecified (principal); E03.8 Other specified hypothyroidism; E06.3 Autoimmune thyroiditis; E66.9 Obesity, unspecified; D64.9 Anemia, unspecified; D72.819 Decreased white blood cell count, unspecified
CPT/HCPCS: 36415; 80053; 82306; 84443; 85025

== ENCOUNTER 2022-01-28 00:57 | Inpatient (IN) | payer OTHER, SELFPAY ==
[2022-01-28] VITALS (19 sets, daily range): BP systolic 93–136; BP diastolic 52–82; PULSE 70–100; RESP 11–28; TEMP 36.3–37; O2SAT 89–100; BMI 35.8
--- NOTE | ~2022-01-28 | XR_ITS ---
EXAMINATION: XR hip RT 1V, XR knee RT 3V, XR ankle LT min 3V CLINICAL INFORMATION: Reason for Exam fall right hip and the pain . Fall, pain. COMPARISON: None. TECHNIQUE: 2 AP radiographs of the right hip; 3 view series of the right knee; 3 view series of the left ankle. FINDINGS: Left ankle: A transverse displaced fracture of the distal fibular metadiaphysis is present and is associated with lateral subluxation of the talus. A transverse displaced fracture of the medial malleolus is present. Partial visualization is made of internal plate and screw fixation of the first metatarsal. A transverse, displaced fracture of the posterior malleolus is present. The lateral view demonstrates posterior subluxation of the talus. The subtalar joints are normal in appearance. Right knee: A total knee arthroplasty is noted. A transverse fracture of the distal femoral metadiaphysis is present with posterior angulation. The fracture extends to the anterior, superior margin of the condylar component of the prosthesis. No fractures are visualized tibia. AP radiographs of the right hip: Marked osteophytosis of the right hip is present. Images are suboptimally oriented and exhibit suboptimal exposure. Making allowances for these findings, no definitive displaced fractures are noted. Marked concentric joint space narrowing and osteophytosis of the right hip is visualized. XR/XR knee RT 3V IMPRESSION: Left ankle: *Trimalleolar intra-articular fracture with tibiotalar dislocation. Right knee: *Transverse, posteriorly angulated periprosthetic fracture of the distal femoral metadiaphysis. *Status post total right knee arthroplasty. Right hip: *Suboptimal visualization of right hip. If clinical concern is present regarding possible acute injury, consider repeat imaging or CT as clinically indicated. *No acute abnormalities identified. Marked right hip osteoarthritis.
--- NOTE | ~2022-01-28 | FL_ITS ---
EXAMINATION: XR FLUOROSCOPY WITH IMAGES CLINICAL INFORMATION: Fracture right distal femur COMPARISON: Prior radiographs 01/28/2022 TECHNIQUE: Fluoroscopy performed by operating surgeon Dr. Gibbs. DAP: 40.2 mGy [id number] Images: 4 FINDINGS: 4 spot images demonstrate orthopedic fixation with lito and screws crossing the previously noted periprosthetic distal femur fracture. Alignment is improved compared with preoperative radiographs. Hardware intact FL/FL guidance in OR IMPRESSION: As above
--- NOTE | ~2022-01-28 | XR_ITS ---
EXAMINATION: XR ANKLE, LEFT CLINICAL INFORMATION: Post reduction COMPARISON: Left ankle radiographs 01/28/2022. TECHNIQUE: AP, lateral, and mortise views of the left ankle. FINDINGS: Images are obtained with overlying splinting material which obscures visualization of fine underlying anatomic details. Partial visualization is made of the previously noted trimalleolar fractures. Mild lateral subluxation of the distal fibular fracture is noted. Mild medial subluxation of the medial malleolar fracture. Mild posterior subluxation of the posterior malleolar fracture. Tibiotalar joint spacing and alignment is in near anatomic positioning. Partial visualization is made of plate and screw fixation of the first metatarsal. XR/XR ankle LT 2V IMPRESSION: *Trimalleolar fracture with interval reduction in tibiotalar dislocation compared with 01/28/2022 1:08 AM.
--- NOTE | ~2022-01-28 | XR_ITS ---
EXAMINATION: XR CHEST CLINICAL INFORMATION: Fever COMPARISON: Previous chest x-ray most recent December 2018 TECHNIQUE: Frontal view of the chest was obtained. FINDINGS: The lung volumes are low. The cardiac and mediastinal contours are stable. There is question of right infrahilar and lateral midlung infiltrates. The left lung is clear. There is no pleural effusion or pneumothorax. There is curvature of the thoracic spine to the right. XR/XR chest 1V IMPRESSION: Low lung volumes. Question right-sided infiltrates.
--- NOTE | ~2022-01-28 | FL_ITS ---
EXAMINATION: XR FLUOROSCOPY WITH IMAGES CLINICAL INFORMATION: Fracture left ankle COMPARISON: Prior left ankle radiographs 01/28/2022 TECHNIQUE: Fluoroscopy performed by operating surgeon. Total 1.36 mGY DAP 0.0236 gycm2 fluoro 0.3 mins 5 images FINDINGS: Sequential fluoroscopically guided spot images obtained demonstrating placement of plate and screw fixation over the distal fibula crossing the previously noted fracture better visualized on the prior radiographs. Alignment improved with anatomic alignment. Medial malleolus fracture also reduced with screws extending through the medial malleolus into the distal tibia. Improved alignment compared with preoperative radiographs. There is anatomic alignment. No additional findings FL/FL guidance in OR IMPRESSION: As above
--- NOTE | ~2022-01-28 | XR_ITS ---
EXAMINATION: XR hip RT 1V, XR knee RT 3V, XR ankle LT min 3V CLINICAL INFORMATION: Reason for Exam fall right hip and the pain . Fall, pain. COMPARISON: None. TECHNIQUE: 2 AP radiographs of the right hip; 3 view series of the right knee; 3 view series of the left ankle. FINDINGS: Left ankle: A transverse displaced fracture of the distal fibular metadiaphysis is present and is associated with lateral subluxation of the talus. A transverse displaced fracture of the medial malleolus is present. Partial visualization is made of internal plate and screw fixation of the first metatarsal. A transverse, displaced fracture of the posterior malleolus is present. The lateral view demonstrates posterior subluxation of the talus. The subtalar joints are normal in appearance. Right knee: A total knee arthroplasty is noted. A transverse fracture of the distal femoral metadiaphysis is present with posterior angulation. The fracture extends to the anterior, superior margin of the condylar component of the prosthesis. No fractures are visualized tibia. AP radiographs of the right hip: Marked osteophytosis of the right hip is present. Images are suboptimally oriented and exhibit suboptimal exposure. Making allowances for these findings, no definitive displaced fractures are noted. Marked concentric joint space narrowing and osteophytosis of the right hip is visualized. XR/XR ankle LT min 3V IMPRESSION: Left ankle: *Trimalleolar intra-articular fracture with tibiotalar dislocation. Right knee: *Transverse, posteriorly angulated periprosthetic fracture of the distal femoral metadiaphysis. *Status post total right knee arthroplasty. Right hip: *Suboptimal visualization of right hip. If clinical concern is present regarding possible acute injury, consider repeat imaging or CT as clinically indicated. *No acute abnormalities identified. Marked right hip osteoarthritis.
--- NOTE | ~2022-01-28 | US_ITS ---
EXAMINATION: US VENOUS ULTRASOUND WITH DOPPLER LOWER EXTREMITY, BILATERAL CLINICAL INFORMATION: Recent fracture right knee and left ankle COMPARISON: None TECHNIQUE: Ultrasound of the deep veins is performed from the hip to the calf with compression sonography and color and pulse Doppler assessment. Spectral analysis with color-flow imaging is performed. FINDINGS: RIGHT: There is normal venous compression and respiratory variation and augmented flow. The visualized common femoral vein, superficial femoral vein, profunda femoral vein, popliteal vein, and the trifurcation region and within the calf the posterior tibial vein and peroneal veins shows no evidence of deep venous thrombosis. There is no significant popliteal fossa cyst. LEFT: There is normal venous compression and respiratory variation and augmented flow. The visualized common femoral vein, superficial femoral vein, profunda femoral vein, popliteal vein, and the trifurcation region shows no evidence of deep venous thrombosis. Left peroneal vein is normal. The posterior tibial vein not seen due to presence of bandages. There is no significant popliteal fossa cyst. If the patient's symptoms persist, followup ultrasound in 5 days 7 days might be of value to exclude proximal propagation from a non-visualized calf vein. US/US venous duplex LE IMPRESSION: No DVT demonstrated in the bilateral lower extremity.
--- NOTE | ~2022-01-28 | XR_ITS ---
EXAMINATION: XR hip RT 1V, XR knee RT 3V, XR ankle LT min 3V CLINICAL INFORMATION: Reason for Exam fall right hip and the pain . Fall, pain. COMPARISON: None. TECHNIQUE: 2 AP radiographs of the right hip; 3 view series of the right knee; 3 view series of the left ankle. FINDINGS: Left ankle: A transverse displaced fracture of the distal fibular metadiaphysis is present and is associated with lateral subluxation of the talus. A transverse displaced fracture of the medial malleolus is present. Partial visualization is made of internal plate and screw fixation of the first metatarsal. A transverse, displaced fracture of the posterior malleolus is present. The lateral view demonstrates posterior subluxation of the talus. The subtalar joints are normal in appearance. Right knee: A total knee arthroplasty is noted. A transverse fracture of the distal femoral metadiaphysis is present with posterior angulation. The fracture extends to the anterior, superior margin of the condylar component of the prosthesis. No fractures are visualized tibia. AP radiographs of the right hip: Marked osteophytosis of the right hip is present. Images are suboptimally oriented and exhibit suboptimal exposure. Making allowances for these findings, no definitive displaced fractures are noted. Marked concentric joint space narrowing and osteophytosis of the right hip is visualized. XR/XR hip RT 1V IMPRESSION: Left ankle: *Trimalleolar intra-articular fracture with tibiotalar dislocation. Right knee: *Transverse, posteriorly angulated periprosthetic fracture of the distal femoral metadiaphysis. *Status post total right knee arthroplasty. Right hip: *Suboptimal visualization of right hip. If clinical concern is present regarding possible acute injury, consider repeat imaging or CT as clinically indicated. *No acute abnormalities identified. Marked right hip osteoarthritis.
--- NOTE | 2022-01-28 01:16 | ECG_ITS ---
Test Reason : FALL Blood Pressure : / mmHG Vent. Rate : 075 BPM Atrial Rate : 075 BPM P-R Int : 168 ms QRS Dur : 088 ms QT Int : 404 ms P-R-T Axes : 062 067 080 degrees QTc Int : 451 ms Normal sinus rhythm Nonspecific ST abnormality Abnormal ECG No previous ECGs available Referred By: Greg Garcia Electronically Signed By:TOMMIE BUNCH MD
[2022-01-28] MEDS: Morphine Sulfate 4 MG/ML CARTRIDGE IVPUSH ×2 (01:19→03:59)
[2022-01-28 01:52] LABS: MANUAL DIFF FLAG NO
[2022-01-28 01:53] LABS: Basophils Percent Auto 0.4 % (0-2); Eosinophils Absolute Auto 0.1 X10*3/uL (0.0-0.4); Eosinophils Percent Auto 1.1 % (0-4); Hematocrit 38.5 % (37.0-47.0); Hemoglobin 12.5 g/dl (12.0-16.0); Imm Gran Abs Auto 0.02 X10*3/uL (0.00-0.03); Imm Gran Pct Auto 0.2 % (0.0-0.4); Lymphocytes Absolute Auto 2.4 X10*3/uL (1.2-4.9); Lymphocytes Percent Auto 29.2 % (20-40); Mean Corpuscular HGB Conc 32.5 g/dl (31.0-35.0); Mean Corpuscular Volume 95.5 fL (80.0-98.0); Mean Platelet Volume 9.6 fL (9.4-12.3); Monocytes Absolute Auto 0.5 X10*3/uL (0.1-1.2); Monocytes Percent Auto 5.5 % (2-11); Neutrophils Absolute Auto 5.3 x10*3/uL (2.0-8.3); Neutrophils Percent Auto 63.6 % (45-73); Platelet Count 257 X10*3/uL (160-400); Red Blood Count 4.03 X10*6/uL (4.20-5.50); Red Cell Distribution Width 13.3 % (11.0-16.0); White Blood Count 8.3 X10*3/uL (4.8-10.8)
[2022-01-28 02:08] LABS: COVID-19 Test Negative (Negative)
[2022-01-28 02:09] LABS: Alanine Aminotransferase 15 U/L (0-31); Albumin Level 4.2 g/dL (3.5-5.0); Alkaline Phosphatase 80 U/L (39-117); Anion Gap 18 (12-20); Aspartate Amino Transferase 23 U/L (5-31); Bilirubin Total 0.4 mg/dL (0.0-1.0); Blood Urea Nitrogen 16 mg/dL (9-16); Calcium 9.6 mg/dL (8.4-10.2); Carbon Dioxide 21 mmol/L (22-29); Chloride 101 mmol/L (96-108); Creatinine Clr Calc Pharmacy 66.7; Estimated Glomerular Filt Rate 53; Glucose Random 118 mg/dL (60-115); Lipase 30 U/L (8-78); Potassium 3.8 mmol/L (3.3-5.1); Sodium 136 mmol/L (135-145); Total Protein 6.9 g/dL (6.5-8.0)
--- NOTE | 2022-01-28 02:21 | ED.FALL ---
HPI - Fall General Chief Complaint: Fall Stated Complaint: right knee and ankle pain after mechanical fall Time Seen by Provider: 01/28/22 01:13 Source: patient Mode of arrival: EMS Limitations: no limitations History of Present Illness HPI Narrative: 61-year-old female who presents emergency department for evaluation of fall and injury to her left ankle and right knee. The patient states that she took her Seroquel to help her sleep. She states she felt very hot and then went into the kitchen to turn on the air conditioning. When she turned around she lost her balance, twisted her left ankle and right knee and then states that she collapsed to the ground. She did not hit her head. She denied any loss of consciousness. She states that immediately she develops severe, constant sharp pain in both her right knee and left ankle. She called 911. Patient had an obvious left ankle deformity and had difficulty moving her right knee. Patient was given fentanyl 50 mg IV EN route to the hospital with minimal relief for pain. She states that she was not ill in any way prior to the fall. Related Data Home Medications Medication Instructions Recorded Confirmed calcium carbonate 500 mg calcium 500 mg PO DAILY 10/01/20 12/17/21 (1,250 mg) tablet (Calcium 500) docusate sodium 100 mg capsule 100 mg PO DAILY 10/01/20 12/17/21 (Stool Softener) glucosamine HCl 500 mg tablet 500 mg PO DAILY 10/01/20 12/17/21 multivitamin 1 tab PO DAILY 10/01/20 12/17/21 omega-3 fatty acids 1,000 mg 1,000 mg PO DAILY 10/01/20 12/17/21 capsule (Fish Oil Concentrate) bupropion HCl 75 mg tablet 75 mg PO BEDTIME 04/04/21 12/17/21 clonazepam 0.5 mg tablet 0.5 mg PO BID PRN Anxiety 04/04/21 12/17/21 fluoxetine 20 mg capsule 60 mg PO QAM 04/04/21 12/17/21 melatonin 5 mg tablet 5 mg PO BEDTIME 04/04/21 12/17/21 metronidazole 0.75 % topical gel 1 appl topical BEDTIME 04/04/21 12/17/21 quetiapine 300 mg tablet 300 mg PO BID 04/04/21 12/17/21 Previous Rx's Medication Instructions Recorded meloxicam 15 mg tablet 15 mg PO DAILY 90 days #90 tabs 08/26/20 albuterol sulfate 90 mcg/actuation 2 inh inhalation Q4-6H PRN 08/04/21 breath activated powder inhaler shortness of breath or wheezing 30 (ProAir RespiClick) days #1 ea valacyclovir 1 gram tablet 1,000 mg PO DAILY 90 days #90 tabs 08/04/21 omeprazole 20 mg capsule,delayed 40 mg PO DAILY 90 days #180 caps 08/20/21 release loratadine 10 mg tablet (Allergy 10 mg PO DAILY 90 days #90 tabs 09/26/21 Relief (loratadine)) bisacodyl 10 mg rectal suppository 10 mg RI DAILY PRN constipation 10/02/21 (Dulcolax (bisacodyl)) #20 ea docusate sodium 100 mg capsule 200 mg PO BEDTIME #60 caps 10/02/21 (Colace) methylcellulose (laxative) 500 mg 500 mg PO BID #60 tabs 10/02/21 tablet (Citrucel) polyethylene glycol 3350 17 gram 17 g PO DAILY #30 ea 10/02/21 oral powder packet (Miralax) acetaminophen 500 mg tablet 1,000 mg PO Q6H PRN pain 30 days 11/06/21 #240 tabs gabapentin 800 mg tablet 800 mg PO TID 90 days #270 tabs 11/10/21 albuterol sulfate 90 mcg/actuation 2 puff inhalation Q6H PRN 11/11/21 aerosol inhaler (Ventolin HFA) shortness of breath or wheezing 30 days #6.7 grams tramadol 50 mg tablet 100 mg PO Q4H PRN pain 30 days 01/02/22 #220 tabs levothyroxine 137 mcg tablet 137 mcg PO DAILY 90 days #90 tabs 01/16/22 Allergies Allergy/AdvReac Type Severity Reaction Status Date / Time amoxicillin [Augmentin] Allergy Intermediate rash Verified 01/28/22 01:04 cat dander Allergy Intermediate NASAL Verified 01/28/22 01:04 SYMPTOMS clavulanic acid [Augmentin] Allergy Intermediate rash Verified 01/28/22 01:04 trazodone [TRAZODONE] Allergy Intermediate I CAN'T Verified 01/28/22 01:04 BREATHE RIGHT , shortness of breath Review of Systems Review of Systems: Yes all other systems are reviewed and are negative [facility] Past Medical History [facility] Narrative: Social history: She denies tobacco use. She denies alcohol use. She smokes marijuana daily. Medical History Anemia Arthritis Depression Hypothyroid IBS (irritable bowel syndrome) Leukopenia Migraines Sleep apnea Surgical History H/O hernia repair H/O knee surgery H/O tubal ligation H/O: hysterectomy History of back surgery History of bilateral knee replacement History of bladder surgery History of delivery History of endometrial ablation History of esophagogastroduodenoscopy (EGD) History of surgery Hx of colonoscopy Family History Family History Father FH: prostate cancer Mother Breast cancer Social History Social History Household Members: None Housing: Apartment Alcohol intake: former Patient Tobacco Use Status: Former Tobacco user Quit Date: 1999 Tobacco use type: Cigarette Years Smoked: 25 e-Cigarette/Vaping Use: Never Used Second Hand Smoke Exposure: No Advance Directives: No service: No Current occupational status: unemployed and disabled Cognitive needs: No Hearing needs: No Vision needs: No Physical Exam Vital Signs: Vital Signs: Last Vital Signs Temp 98.6 F 01/28/22 00:58 Pulse 73 01/28/22 02:44 Resp 12 01/28/22 02:44 BP 117/64 01/28/22 02:44 Pulse Ox 100 01/28/22 02:44 O2 Del Method 01/28/22 02:44 O2 Flow Rate 2 01/28/22 02:44 FiO2 26 01/28/22 02:44 Oxygen Flow Rate 2 01/28/22 02:18 BMI result Body Mass Index 35.8 Const: Other: Awake, alert, female patient, she is in distress secondary to pain in her right knee and left ankle, she has an obvious left ankle deformity, she answers all questions appropriately. HEENT: Head: Yes normal to inspection, Yes normocephalic and Yes atraumatic Ears: external ears normal General nose exam: Normal external nose present Face and sinus: Yes normal facial exam Mouth: Normal oral and palatal mucosa present Throat: Yes posterior oropharynx normal Eyes: General: appearance normal, both eyes and all related structures Pupils: Equal, round and reactive pupils present Neck: Neck: Yes normal visual inspection, Yes no lymphadenopathy, Yes trachea midline and Yes supple Chest: Chest palpation & inspection: normal inspection of the chest and normal palpation of entire chest wall Resp: Effort & Inspection: normal respiratory effort and able to speak in complete sentences Auscultation: clear to auscultation bilaterally Cardio: Rate: regular rate Rhythm: regular rhythm Heart sounds: S1 normal heart sound present, S2 normal heart sound present and no murmurs GI: Inspection: Yes normal to inspection Palpation (GI): Soft to palpation, nontender and no guarding Auscultation: normal bowel sounds : General: Yes no CVA tenderness Back/Spine/Pelvis: Back: no CVA tenderness Skin: General skin exam: no rashes or lesions noted Neuro: Cranial nerves: Yes CN's II-XII intact bilaterally and Yes Equal, round and reactive pupils present Cognition (Neuro): normal cognition Motor exam (neuro): 5/5 motor strength present throughout Extrem: Other: The patient has an obvious deformity of her left ankle, she has good pulses, she has normal sensation. Patient has tenderness with palpation minimal movement of her right knee. She has no tenderness with palpation of her hip. Psych: Appearance: grossly normal Speech and movement: Normal speech and movement present Affect: Other affect and mood findings present ( In distress secondary to pain) Attitude: cooperative Thought process: Normal thought process present Thought content: Normal thought content present Course Course Course Narrative: 61-year-old female who presents emergency department for evaluation of injuries from a fall at home. The patient had an obvious deformity of her left ankle, her extremity was neurovascularly intact . She also had pain with palpation of her right knee and increased pain in her right knee with minimal movement of the knee. She had no other significant injuries. She was given morphine 4 mg IV for her pain. 0227: Laboratory evaluation: CBC was normal. CMP revealed a low CO2 of 21 and an elevated glucose of 118. COVID-19 was negative. Radiology evaluation: left ankle, right hip, right knee x-rays were interpreted as follows by the radiologist: Left ankle: *Trimalleolar intra-articular fracture with tibiotalar dislocation. Right knee: *Transverse, posteriorly angulated periprosthetic fracture of the distal femoral metadiaphysis. *Status post total right knee arthroplasty. Right hip: *Suboptimal visualization of right hip. If clinical concern is present regarding possible acute injury, consider repeat imaging or as clinically indicated. *No acute abnormalities identified. Marked right hip osteoarthritis. I will discuss the patient's presentation with the covering orthopedic physician elder assistant to determine if the patient can be managed at this facility or needs to be transferred. 0319: I did discuss over tiger text this patient with the orthopedic physician elder assistant, Idania Carey. she requests the patient be admitted to the medical service with orthopedic consult. I did discuss the patient's presentation over tiger text with the covering hospitalist and the patient will be admitted for further management. Procedures Procedure Narrative Procedure Narrative: Left ankle trimalleolar fracture reduction with procedural sedation using ketamine: I did discuss the fracture reduction and procedural sedation with the patient and she did give me informed written consent. The patient was placed on a cardiac, O2 saturation and end-tidal CO2 monitor. A time-out was performed. The patient was given ketamine 200 mg IV ( 2 milligrams/kilogram). The patient became dissociated within 1 minute. Using traction counter traction I was able to reduce the patient's left ankle fracture. the splint to the patient's left ankle was applied by me with the highway traffic control technician as my elder assistant. Three layers of cast padding was used. A ortho glass sugar-tong and ortho glass posterior splint were applied in these were held in place using an Antonio wrap. The patient had good pulses after application of the splint. the patient may have developed transient hypoxia however we were having difficulty getting a O2 saturation reading secondary to cool extremities. With the assistance of the respiratory therapist , we did give the patient several breaths using a bag-valve mask Until were able to get a better O2 saturation reading and the patient had an O2 saturation of 100%. The patient fully recovered after the procedure and is feeling significantly better with less pain after reduction of her fracture. MDM - Fall Lab Data Result diagrams: 01/28/22 01:47 01/28/22 01:47 Labs: Lab Results 01/28/22 01/28/22 01/28/22 Range/Units 01:47 01:47 01:47 WBC 8.3 (4.8-10.8) X10*3/uL RBC 4.03 L (4.20-5.50) X10*6/uL Hgb 12.5 (12.0-16.0) g/dl Hct 38.5 (37.0-47.0) % MCV 95.5 (80.0-98.0) fL MCH 31.0 (27.0-33.0) pg MCHC 32.5 (31.0-35.0) g/dl RDW 13.3 (11.0-16.0) % Plt Count 257 D (160-400) X10*3/uL MPV 9.6 (9.4-12.3) fL Immature Gran % (Auto) 0.2 (0.0-0.4) % Neut % (Auto) 63.6 (45-73) % Lymph % (Auto) 29.2 (20-40) % Runnels % (Auto) 5.5 (2-11) % Eos % (Auto) 1.1 (0-4) % Baso % (Auto) 0.4 (0-2) % Lymph # (Auto) 2.4 (1.2-4.9) X10*3/uL Runnels # (Auto) 0.5 (0.1-1.2) X10*3/uL Eos # (Auto) 0.1 (0.0-0.4) X10*3/uL Baso # (Auto) 0.0 (0.0-0.2) X10*3/uL Abs Immat Gran (auto) 0.02 (0.00-0.03) X10*3/uL Absolute Neuts (auto) 5.3 (2.0-8.3) x10*3/uL Absolute Nucleated RBC 0.000 (0.0-0.012) X10*3/uL Nucleated RBC % (auto) 0.0 (0.0-0.2) /100WBC Sodium 136 (135-145) mmol/L Potassium 3.8 (3.3-5.1) mmol/L Chloride 101 (96-108) mmol/L Carbon Dioxide 21 L (22-29) mmol/L Anion Gap 18 (12-20) BUN 16 (9-16) mg/dL Creatinine 1.06 (0.5-1.4) mg/dL Estim Creat Clear Calc 66.7 Estimated GFR 53 Random Glucose 118 H (60-115) mg/dL Calcium 9.6 (8.4-10.2) mg/dL Total Bilirubin 0.4 (0.0-1.0) mg/dL AST 23 (5-31) U/L ALT 15 (0-31) U/L Alkaline Phosphatase 80 (39-117) U/L Total Protein 6.9 (6.5-8.0) g/dL Albumin 4.2 (3.5-5.0) g/dL Lipase 30 (8-78) U/L COVID-19 (ASHLEY) Negative (Negative) COVID-19 Clin Com See Note ECG Data Attestation: I personally reviewed and interpreted this ECG as follows: Interpretation: 0136: Normal sinus rhythm with a rate of 75, normal RI interval, QRS duration QTC interval, no PACs, no PVCs, no ST segment elevation, no ST segment depression Discharge Plan Discharge Patient Disposition: Admitted As Inpatient Prescriptions: No Action meloxicam 15 mg tablet 15 mg PO DAILY 90 Days Qty: 90 0RF valacyclovir 1 gram tablet 1,000 mg PO DAILY 90 Days Qty: 90 3RF ProAir RespiClick 90 mcg/actuation aerosol powdr breath activated 2 inh inhalation Q4-6H PRN (Reason: shortness of breath or wheezing) 30 Days Qty: 1 3RF omeprazole 20 mg capsule,delayed release(DR/EC) 40 mg PO DAILY 90 Days Qty: 180 1RF loratadine [Allergy Relief (loratadine)] 10 mg tablet 10 mg PO DAILY 90 Days Qty: 90 1RF acetaminophen 500 mg tablet 1,000 mg PO Q6H PRN (Reason: pain) 30 Days Qty: 240 8RF gabapentin 800 mg tablet 800 mg PO TID 90 Days Qty: 270 1RF albuterol sulfate [Ventolin HFA] 90 mcg/actuation HFA aerosol inhaler 2 puff inhalation Q6H PRN (Reason: shortness of breath or wheezing) 30 Days Qty: 6.7 2RF tramadol 50 mg tablet 100 mg PO Q4H PRN (Reason: pain) 30 Days Qty: 220 0RF Rx Instructions: Take 1 to 2 tablets every 4 hours prn levothyroxine 137 mcg tablet 137 mcg PO DAILY 90 Days Qty: 90 0RF omega-3 fatty acids [Fish Oil Concentrate] 1,000 mg capsule 1,000 mg PO DAILY calcium carbonate [Calcium 500] 500 mg calcium (1,250 mg) tablet 500 mg PO DAILY multivitamin Tablet 1 tab PO DAILY docusate sodium [Stool Softener] 100 mg capsule 100 mg PO DAILY glucosamine HCl 500 mg tablet 500 mg PO DAILY Rx Instructions: administer with a meal clonazepam 0.5 mg tablet 0.5 mg PO BID PRN (Reason: Anxiety) melatonin 5 mg tablet 5 mg PO BEDTIME metronidazole 0.75 % gel 1 appl topical BEDTIME fluoxetine 20 mg capsule 60 mg PO QAM bupropion HCl 75 mg tablet 75 mg PO BEDTIME quetiapine 300 mg tablet 300 mg PO BID Citrucel 500 mg tablet 500 mg PO BID Qty: 60 5RF polyethylene glycol 3350 [Miralax] 17 gram powder in packet 17 g PO DAILY Qty: 30 5RF bisacodyl [Dulcolax (bisacodyl)] 10 mg suppository 10 mg RI DAILY PRN (Reason: constipation) Qty: 20 0RF docusate sodium [Colace] 100 mg capsule 200 mg PO BEDTIME Qty: 60 5RF
[2022-01-28] MEDS: Ketamine HCl/NS 50 MG/5 ML SYRINGE 200 MG IVPUSH (02:23)
--- NOTE | 2022-01-28 06:15 | PC.NURSE ---
Report given to MECHANICAL ASSEMBLY
--- NOTE | 2022-01-28 06:53 | PC.NURSE ---
pt c/o pain in her legs. MD mathias reached out to for PRN pain medication orders
[2022-01-28] MEDS: HYDROmorphone HCl 1 MG/ML SYRINGE IVPUSH (08:07)
--- NOTE | 2022-01-28 08:54 | P.CONOP_ITS ---
History of Present Illness HPI Consult date: 01/28/22 Chief complaint: right knee and ankle pain after mechanical fall Narrative: 61 yo female who presented to the ED after sustaining and injury to bilat lower extremities on 01/27/22. She states prior to going to bed that night she took her Seroquel. She did get up from bed after taking the medication and lost her footing and fell. She was unable to get up and ambulate, she did notice deformity of the ankle with pain and also in the right knee. She contacted EMS and was transported to the ED for evaluation. While in the ED, xrays obatined showed a left ankle fracture / dislocation and a right knee periprosthetic fracture of the distal femur. She was admitted to the medical service and orthopedics was consulted for further recommendations. Review of Systems Review of Systems: per [facility] Past Medical History Medical History Anemia Arthritis Depression Hypothyroid IBS (irritable bowel syndrome) Leukopenia Migraines Sleep apnea Family History Family History Father FH: prostate cancer Mother Breast cancer Surgical History Surgical History H/O hernia repair H/O knee surgery H/O tubal ligation H/O: hysterectomy History of back surgery History of bilateral knee replacement History of bladder surgery History of delivery History of endometrial ablation History of esophagogastroduodenoscopy (EGD) History of surgery Hx of colonoscopy Social History Social History Household Members: None Housing: Apartment Alcohol intake: former Patient Tobacco Use Status: Former Tobacco user Quit Date: 1999 Tobacco use type: Cigarette Years Smoked: 25 e-Cigarette/Vaping Use: Never Used Second Hand Smoke Exposure: No Advance Directives: No service: No Current occupational status: unemployed and disabled Cognitive needs: No Hearing needs: No Vision needs: No Meds Allergies Allergy/AdvReac Type Severity Reaction Status Date / Time amoxicillin [Augmentin] Allergy Intermediate rash Verified 01/28/22 01:04 cat dander Allergy Intermediate NASAL Verified 01/28/22 01:04 SYMPTOMS clavulanic acid [Augmentin] Allergy Intermediate rash Verified 01/28/22 01:04 trazodone [TRAZODONE] Allergy Intermediate I CAN'T Verified 01/28/22 01:04 BREATHE RIGHT , shortness of breath Active Medications: Current Medications Pharmacy Consult (Consult Rx Perform Med Rec) 1 each MISCELLANE ONCE PRN PRN Reason: Consult order Home Medications Medication Instructions Recorded Confirmed Last Taken Type calcium carbonate 500 mg calcium 500 mg PO DAILY 10/01/20 01/28/22 01/27/22 History (1,250 mg) tablet (Calcium 500) docusate sodium 100 mg capsule 100 mg PO DAILY 10/01/20 01/28/22 01/27/22 History (Stool Softener) glucosamine HCl 500 mg tablet 500 mg PO DAILY 10/01/20 01/28/22 01/27/22 History multivitamin 1 tab PO DAILY 10/01/20 01/28/22 01/27/22 History omega-3 fatty acids 1,000 mg 1,000 mg PO DAILY 10/01/20 01/28/22 01/27/22 History capsule (Fish Oil Concentrate) bupropion HCl 75 mg tablet 75 mg PO BEDTIME 04/04/21 01/28/22 01/27/22 History clonazepam 0.5 mg tablet 0.5 mg PO BID PRN Anxiety 04/04/21 01/28/22 01/27/22 History fluoxetine 20 mg capsule 60 mg PO QAM 04/04/21 01/28/22 01/27/22 History melatonin 5 mg tablet 5 mg PO BEDTIME 04/04/21 01/28/22 01/27/22 History metronidazole 0.75 % topical gel 1 appl topical BEDTIME 04/04/21 01/28/22 Unknown History quetiapine 300 mg tablet 600 mg PO BEDTIME 04/04/21 01/28/22 01/27/22 History ascorbic acid (vitamin C) 100 mg 100 mg PO DAILY 01/28/22 01/28/22 01/27/22 H istory tablet cholecalciferol (vitamin D3) 25 25 mcg PO DAILY 01/28/22 01/28/22 01/27/22 His tory mcg (1,000 unit) tablet (Vitamin D3) Physical Exam Vital Signs: Vital Signs: Last Vital Signs Temp 98.6 F 01/28/22 07:48 Pulse 78 01/28/22 07:48 Resp 19 01/28/22 07:48 BP 119/71 01/28/22 07:48 Pulse Ox 100 01/28/22 07:48 O2 Del Method 01/28/22 07:48 O2 Flow Rate 2 01/28/22 02:44 FiO2 26 01/28/22 02:44 Oxygen Flow Rate 2 01/28/22 02:18 BMI result Body Mass Index 35.8 Const: General: cooperative, healthy appearing and comfortable Extrem: Other: Left ankle splint intact, she has good sensation and cap refill of the toes. No hot spots on the splint. Right knee surgical scar present. Knee is in an immobilizer. There is swelling and pain along the fracture site. NVI. Results Labs Result Diagrams: 01/28/22 01:47 01/28/22 01:47 Labs: Abnormal lab results 01/28/22 01/28/22 Range/Units 01:47 01:47 RBC 4.03 L (4.20-5.50) X10*6/uL Carbon Dioxide 21 L (22-29) mmol/L Random Glucose 118 H (60-115) mg/dL H & H 01/28/22 Range/Units 01:47 Hgb 12.5 (12.0-16.0) g/dl Hct 38.5 (37.0-47.0) % All other labs normal. Diagnostic results Knee x-ray: image reviewed (IMPRESSION: Left ankle: *Trimalleolar intra- articular fracture with tibiotalar dislocation. Right knee: *Transverse, pos teriorly angulated periprosthetic fracture of the distal femoral metadiaphysis. *Status post total right knee arthroplasty) Assessment and Plan (1) Closed trimalleolar fracture: Qualifiers: Encounter type: initial encounter Laterality: left Qualified Code(s): S82.852A - Displaced trimalleolar fracture of left lower leg, initial encounter for closed fracture Status: Acute (2) Femoral distal fracture: Qualifiers: Encounter type: initial encounter Fracture type: closed Laterality: right Status: Acute Plan I discussed the case with Dr Gibbs who was also available to see the patient with me and explained the extent of the injury to the patient and options available which include surgical intervention. We explained the procedure in detail along with the length of recovery and rehab course.We explained the risk, benefits and alternatives. Risk including, but not limited to infection, blood clots, bleeding, non union or malunion and nerve/tissue damage to surrounding areas. She does understand she will be NWB on the LLE for at least 6 weeks and NWB on the RLE +/- 3 months. We answered all her questions and with her understanding she has consented to move forward with Operative Fixation of the left ankle and Operative fixation of the right distal femur. The patient will be T&S, med clearance obtained and NPO after midnight on 01/29/22, for surgery on 01/30/22. Procedures Date of Service Date of Service: 01/28/22
--- NOTE | 2022-01-28 09:14 | PHA.MEDREC ---
Pharmacy Consult ? Medication Reconciliation Pharmacy has completed the medication reconciliation Patient reports taking vitamin D and Vitamin C over the counter. Patient admits to rarely ever using her albuterol inhaler.
--- NOTE | 2022-01-28 11:23 | PM.IMHP ---
History of Present Illness Date of Service: 01/28/22 Chief Complaint: fall, knee/ankle pain 61yo F with hypothyroidism, chronic leukopenia, MARLENY not on CPAP, depression, and bilateral knee replacements who took quetiapine last night for insomnia. She became very hot and went to her kitchen to turn off her air conditioning. She tripped and lost her balance and fell, twisting her left ankle and falling on her right knee. No head trauma. No LOC. She developed severe pain of the left ankle and right knee and called 911. She was given IN fentanyl by the paramedics and transported to the hospital, where her ankle was noted to be obviously deformed. In the ED, she was found to have a left ankle trimalleolar intra-articular fracture with tibiotalar dislocation, along with a right knee transverse, posteriorly angulated periprosthetic fracture of the distal femoral metadiaphysis. The ankle was reduced and splinted under ketamine sedation. Orthopedics was consulted and operative fixation is planned. She's had multiple surgeries as detailed below without any perioperative cardiopulmonary complications. She is able to climb 2 flights of stairs without angina or dyspnea. Review of Systems Review of Systems: Yes all other systems are reviewed and are negative [facility] Medical History Anemia Arthritis Depression Hypothyroid IBS (irritable bowel syndrome) Leukopenia Migraines Sleep apnea Family History Father FH: prostate cancer Mother Breast cancer Surgical History H/O hernia repair H/O knee surgery H/O tubal ligation H/O: hysterectomy History of back surgery History of bilateral knee replacement History of bladder surgery History of delivery History of endometrial ablation History of esophagogastroduodenoscopy (EGD) History of surgery Hx of colonoscopy Social History Household Members: None Housing: Apartment Alcohol intake: former Patient Tobacco Use Status: Former Tobacco user Quit Date: 1999 Tobacco use type: Cigarette Years Smoked: 25 e-Cigarette/Vaping Use: Never Used Second Hand Smoke Exposure: No Advance Directives: No service: No Current occupational status: unemployed and disabled Cognitive needs: No Hearing needs: No Vision needs: No Meds Allergies Allergy/AdvReac Type Severity Reaction Status Date / Time amoxicillin [Augmentin] Allergy Intermediate rash Verified 01/28/22 01:04 cat dander Allergy Intermediate NASAL Verified 01/28/22 01:04 SYMPTOMS clavulanic acid [Augmentin] Allergy Intermediate rash Verified 01/28/22 01:04 trazodone [TRAZODONE] Allergy Intermediate I CAN'T Verified 01/28/22 01:04 BREATHE RIGHT , shortness of breath Active Medications: Current Medications Acetaminophen (Acetaminophen 325 Mg Tablet) 650 mg PO Q6H PRN PRN Reason: Pain, Mild (Pain Scale 1-3) Hydrocodone Bitart/Acetaminophen (Hydrocodone Bit/Acetam 10/325 Tablet) 1 tab PO Q6H PRN PRN Reason: moderate pain Albuterol Sulfate (Albuterol Sulfate 90 Mcg 8 Gm Inhaler) 2 puff INHALE Q6H PRN PRN Reason: shortness of breath or wheezing Ascorbic Acid (Ascorbic Acid 250 Mg Tablet) 250 mg PO DAILY ESE Bupropion HCl (Bupropion Hcl 75 Mg Tablet) 75 mg PO BEDTIME ESE Calcium Carbonate (Calcium Carbonate 500 Mg Tablet) 500 mg PO DAILY ESE Calcium Polycarbophil (Calcium Polycarbophil Tablet) 500 tab PO BID ESE Clonazepam (Clonazepam 0.5 Mg Tablet) 0.5 mg PO BID PRN PRN Reason: Anxiety Docusate Sodium (Docusate Sodium 100 Mg Capsule) 100 mg PO DAILY ESE Fluoxetine HCl (Fluoxetine Hcl 20 Mg Capsule) 60 mg PO DAILY ESE Gabapentin (Gabapentin 400 Mg Capsule) 800 mg PO TID ESE Hydromorphone HCl (Hydromorphone Hcl 0.5 Mg/0.5 Ml Syringe) 1 mg IVPUSH Q2H PRN; Protocol PRN Reason: severe pain Levothyroxine Sodium (Levothyroxine Sodium 112 Mcg Tablet) 112 mcg PO DAILY@0600 ESE Levothyroxine Sodium (Levothyroxine Sodium 25 Mcg Tablet) 25 mcg PO DAILY@0600 ESE Loratadine (Loratadine 10 Mg Tablet) 10 mg PO DAILY ESE Melatonin (Melatonin 3 Mg Tablet) 6 mg PO BEDTIME ESE Metronidazole (Metronidazole 0.75 % Gel 45 Gm Tube) 1 appl TOPICAL BEDTIME ESE Multivitamins/Vitamin C (Multivitamin Tablet) 1 tab PO DAILY ESE Omeprazole (Omeprazole 40 Mg Capsule.) 40 mg PO DAILY@0630 [facility] Ondansetron HCl (Ondansetron Hcl 4 Mg/2 Ml Vial) 4 mg IVPUSH Q8H PRN PRN Reason: Nausea and Vomiting Pharmacy Consult (Consult Rx Perform Med Rec) 1 each MISCELLANE ONCE PRN PRN Reason: Consult order Polyethylene Glycol (Polyethylene Glycol 3350 17 Gm Powd.Pack) 17 gm PO DAILY [facility] Quetiapine Fumarate (Quetiapine Fumarate 300 Mg Tablet) 600 mg PO BEDTIME [facility] Sodium Chloride (0.9 % Sodium Chloride Flush 3 Ml Syringe) 3 ml IVFLUSH QSHIFT [facility] Valacyclovir HCl (Valacyclovir Hcl 1,000 Mg Tablet) 1,000 mg PO DAILY [facility] Vitamin D (Cholecalciferol (Vitamin D3) 25 Mcg Tablet) 25 mcg PO DAILY [facility] Home Medications Medication Instructions Recorded Confirmed Last Taken Type calcium carbonate 500 mg calcium 500 mg PO DAILY 10/01/20 01/28/22 01/27/22 History (1,250 mg) tablet (Calcium 500) docusate sodium 100 mg capsule 100 mg PO DAILY 10/01/20 01/28/22 01/27/22 History (Stool Softener) glucosamine HCl 500 mg tablet 500 mg PO DAILY 10/01/20 01/28/22 01/27/22 History multivitamin 1 tab PO DAILY 10/01/20 01/28/22 01/27/22 History omega-3 fatty acids 1,000 mg 1,000 mg PO DAILY 10/01/20 01/28/22 01/27/22 History capsule (Fish Oil Concentrate) bupropion HCl 75 mg tablet 75 mg PO BEDTIME 04/04/21 01/28/22 01/27/22 History clonazepam 0.5 mg tablet 0.5 mg PO BID PRN Anxiety 04/04/21 01/28/22 01/27/22 History fluoxetine 20 mg capsule 60 mg PO QAM 04/04/21 01/28/22 01/27/22 History melatonin 5 mg tablet 5 mg PO BEDTIME 04/04/21 01/28/22 01/27/22 History metronidazole 0.75 % topical gel 1 appl topical BEDTIME 04/04/21 01/28/22 Unknown History quetiapine 300 mg tablet 600 mg PO BEDTIME 04/04/21 01/28/22 01/27/22 History ascorbic acid (vitamin C) 100 mg 100 mg PO DAILY 01/28/22 01/28/22 01/27/22 History tablet cholecalciferol (vitamin D3) 25 25 mcg PO DAILY 01/28/22 01/28/22 01/27/22 History mcg (1,000 unit) tablet (Vitamin D3) Physical Exam Vital Signs and Narrative: Vital Signs: Last Vital Signs Temp 98.6 F 01/28/22 07:48 Pulse 78 01/28/22 07:48 Resp 19 01/28/22 07:48 BP 119/71 01/28/22 07:48 Pulse Ox 100 01/28/22 07:48 O2 Del Method 01/28/22 07:48 O2 Flow Rate 2 01/28/22 02:44 FiO2 26 01/28/22 02:44 Oxygen Flow Rate 2 01/28/22 02:18 BMI result Body Mass Index 35.8 Gen: in pain HEENT: sclera anicteric, moist mucus membranes Neck: supple Lungs: clear to auscultation bilaterally Heart: regular rate and rhythm, no murmurs, obese Abd: soft, non-tender, non-distended Ext: R knee tender, L ankle in splint, distally neurovascularly intact Skin: warm/well-perfused Neuro: alert and oriented x3, no focal findings Psych: appropriate affect Results Labs CBC and Chem 7: 01/28/22 01:47 01/28/22 01:47 Labs: Laboratory Results - last 24 hr 01/28/22 01/28/22 01/28/22 01:47 01:47 01:47 MCV 95.5 MCH 31.0 MCHC 32.5 RDW 13.3 Plt Count 257 D MPV 9.6 Immature Gran % (Auto) 0.2 Neut % (Auto) 63.6 Lymph % (Auto) 29.2 Mclean % (Auto) 5.5 Eos % (Auto) 1.1 Baso % (Auto) 0.4 Lymph # (Auto) 2.4 Mclean # (Auto) 0.5 Eos # (Auto) 0.1 Baso # (Auto) 0.0 Abs Immat Gran (auto) 0.02 Absolute Neuts (auto) 5.3 Absolute Nucleated RBC 0.000 Nucleated RBC % (auto) 0.0 Anion Gap 18 Estim Creat Clear Calc 66.7 Estimated GFR 53 Random Glucose 118 H Calcium 9.6 Total Bilirubin 0.4 AST 23 ALT 15 Alkaline Phosphatase 80 Total Protein 6.9 Albumin 4.2 Lipase 30 COVID-19 ([facility]) Negative COVID-19 Clin Com See Note Imaging Radiologist's Impressions: Impressions Ankle X-Ray 01/28/22 01:34 IMPRESSION: Left ankle: *Trimalleolar intra-articular fracture with tibiotalar dislocation. Right knee: *Transverse, posteriorly angulated periprosthetic fracture of the distal femoral metadiaphysis. *Status post total right knee arthroplasty. Right hip: *Suboptimal visualization of right hip. If clinical concern is present regarding possible acute injury, consider repeat imaging or CT as clinically indicated. *No acute abnormalities identified. Marked right hip osteoarthritis. Hip X-Ray 01/28/22 01:34 IMPRESSION: Left ankle: *Trimalleolar intra-articular fracture with tibiotalar dislocation. Right knee: *Transverse, posteriorly angulated periprosthetic fracture of the distal femoral metadiaphysis. *Status post total right knee arthroplasty. Right hip: *Suboptimal visualization of right hip. If clinical concern is present regarding possible acute injury, consider repeat imaging or CT as clinically indicated. *No acute abnormalities identified. Marked right hip osteoarthritis. Knee X-Ray 01/28/22 01:34 IMPRESSION: Left ankle: *Trimalleolar intra-articular fracture with tibiotalar dislocation. Right knee: *Transverse, posteriorly angulated periprosthetic fracture of the distal femoral metadiaphysis. *Status post total right knee arthroplasty. Right hip: *Suboptimal visualization of right hip. If clinical concern is present regarding possible acute injury, consider repeat imaging or CT as clinically indicated. *No acute abnormalities identified. Marked right hip osteoarthritis. Ankle X-Ray 01/28/22 02:50 IMPRESSION: *Trimalleolar fracture with interval reduction in tibiotalar dislocation compared with 01/28/2022 1:08 AM. Assessment and Plan (1) Closed trimalleolar fracture: Qualifiers: Encounter type: initial encounter Laterality: left Qualified Code(s): S82.852A - Displaced trimalleolar fracture of left lower leg, initial encounter for closed fracture Status: Acute (2) Femoral distal fracture: Qualifiers: Encounter type: initial encounter Fracture type: closed Laterality: right Status: Acute Plan 61yo F with hypothyroidism, chronic leukopenia, MARLENY not on CPAP, depression, and bilateral knee replacements who fell and sustained a left trimalleolar intra-articular fracture with tibiotalar dislocation [reduced] and a right transverse periprosthetic fracture of the distal femur. # ankle fracture # knee fracture - admit to M/S, Ortho consult, T+S, NPO after midnight for operative intervention, no further preoperative testing indicated as she can achieve 4 METs of activity without angina or equivalent, pain control with Stewart + IV hydromorphone # hypothyroidism - continue LT4 # mood disorder - continue bupropion, quetiapine, fluoxetine # chronic back pain - continue gabapentin # VTE ppx - SCDs now, extended-duratinon LMWH postop # code - full I anticipate that the patient will stay at least 2 midnights in hospital due to the above reasons. It is neither reasonable nor safe to care for them in a less acute setting. Quality Stroke Does the patient have a stroke diagnosis?: No VTE Prior VTE?: No VTE Risk Level:: Medical - moderate - high VTE Device Contraindication: N/A - Device Ordered VTE Drug Contraindication: N/A - Med Ordered
[2022-01-28] MEDS: HYDROmorphone HCl 0.5 MG/0.5 ML SYRINGE 1 MG IVPUSH (11:40)
[2022-01-28] MEDS: FLUoxetine HCl 20 MG CAPSULE 60 MG PO (11:48)
[2022-01-28] MEDS: clonazePAM 0.5 MG TABLET PO (13:38)
--- NOTE | 2022-01-28 14:24 | PC.NURSE ---
Pt pain not well managed with meds given. Provider aware. lower extremities assessed and warm to the touch with good pulses
[2022-01-28] MEDS: Gabapentin 400 MG CAPSULE 800 MG PO ×2 (16:01→20:56)
[2022-01-28] MEDS: 0.9 % Sodium Chloride Flush 3 ML SYRINGE IVFLUSH (16:02)
[2022-01-28] MEDS: Morphine Sulfate/NS 100 MG/100 ML PLAST..BAG IVCONT (16:28)
--- NOTE | 2022-01-28 16:30 | PC.NURSE ---
ANTHROPOLOGICAL LINGUIST pump Witnessed by Esperanza Acuña RN
--- NOTE | 2022-01-28 19:12 | PC.NURSE ---
ERADICATOR pump verfication done with Ed RN. No questions.
[2022-01-28 19:47] LABS: Appearance Urine CLEAR; Color Urine YELLOW; Glucose Urine UA NEG (NEG); Leukocyte Esterase Urine NEG (NEG); Nitrite Urine NEG (NEG); Specific Gravity - Urine 1.015 (1.005-1.025); Urine Blood NEG (NEG); Urine Ketones NEG (NEG); Urine Protein NEG (NEG-TRACE)
[2022-01-28] MEDS: buPROPion HCL 75 MG TABLET PO (20:55)
[2022-01-28] MEDS: Melatonin 3 MG TABLET 6 MG PO (20:55)
[2022-01-28] MEDS: QUEtiapine Fumarate 300 MG TABLET 600 MG PO (20:56)
[2022-01-28] MEDS: calcium polycarbophiL TABLET 1 TAB PO (20:57)
--- NOTE | 2022-01-28 23:25 | PC.NURSE ---
pt resting in bed using LOG INSPECTOR pump appropriately watching tv and sleeping intermittently. pt desat to 88-89% on RA with good pleth, placed on 2lpm via n.c
[2022-01-29] VITALS (11 sets, daily range): BP systolic 102–123; BP diastolic 49–75; PULSE 71–93; RESP 16–20; TEMP 36.2–37.3; O2SAT 7–99; BMI 35.1
[2022-01-29] MEDS: Levothyroxine Sodium 25 MCG TABLET PO (05:05)
[2022-01-29] MEDS: ondansetron HCL 4 MG/2 ML VIAL IVPUSH (05:05)
[2022-01-29] MEDS: Omeprazole 40 MG CAPSULE.DR PO ×2 (05:05→20:24)
[2022-01-29] MEDS: Acetaminophen 325 MG TABLET 650 MG PO (05:14)
[2022-01-29 06:31] LABS: Hematocrit 32.6 % (37.0-47.0); Hemoglobin 10.7 g/dl (12.0-16.0); Mean Corpuscular HGB Conc 32.8 g/dl (31.0-35.0); Mean Corpuscular Hemoglobin 31.3 pg (27.0-33.0); Mean Corpuscular Volume 95.3 fL (80.0-98.0); Mean Platelet Volume 9.7 fL (9.4-12.3); Platelet Count 184 X10*3/uL (160-400); Red Blood Count 3.42 X10*6/uL (4.20-5.50); Red Cell Distribution Width 13.5 % (11.0-16.0); White Blood Count 6.5 X10*3/uL (4.8-10.8)
[2022-01-29 06:50] LABS: Anion Gap 11 (12-20); Blood Urea Nitrogen 17 mg/dL (9-16); Calcium 8.3 mg/dL (8.4-10.2); Carbon Dioxide 25 mmol/L (22-29); Chloride 103 mmol/L (96-108); Creatinine Clr Calc Pharmacy 94.5; Estimated Glomerular Filt Rate > 60; Glucose Random 131 mg/dL (60-115); Potassium 4.1 mmol/L (3.3-5.1); Sodium 135 mmol/L (135-145)
--- NOTE | 2022-01-29 08:53 | PM.EVENT ---
Event Note Date of Service: 01/29/22 Event Note: Patient was seen this morning she is resting comfortably in bed Explained to her that her surgery is booked for 01/30. She will be NPO after midnight.
[2022-01-29] MEDS: Loratadine 10 MG TABLET PO (09:10)
[2022-01-29] MEDS: valACYclovir HCL 1,000 MG TABLET 1000 MG PO (09:10)
[2022-01-29] MEDS: FLUoxetine HCl 20 MG CAPSULE 60 MG PO (09:10)
[2022-01-29] MEDS: Gabapentin 400 MG CAPSULE 800 MG PO ×3 (09:10→20:23)
--- NOTE | 2022-01-29 12:07 | MHC.CM.PN ---
PT REPORTS SHE LIVES ALONE, RECEIVES HOMEMAKING SERVICES WEEKLY, SHE BELIEVES SERVICE IS FROM [facility] [place]. PT USES [facility] AT HOME, ALSO HAS WALKER AND TRANSPORT WHEELCHAIR AND USES NEEDED. PCP IS KOTA PAREDES/ON FILE. PT COVID VACCINATED X4 (MODERNA). NO HCP ON FILE- EDUCATION PROVIDED/PT DECLINED TO COMPLETE HCP AT THIS TIME. PT WILL NEED ASSISTANCE WITH SECURING TRANSPORTATION. IMM DELIVERED AND COPY IN CHART DISCHARGE PLAN: [facility]
--- NOTE | 2022-01-29 12:51 | HO.PM.IMPN ---
Subjective Subjective Date of Service: 01/29/22 Interval History: ankle + knee pain controlled on mPCA no dyspnea no cough no chest pain Review of Systems Review of Systems: Yes all other systems are reviewed and are negative Physical Exam Vital Signs: Vital Signs: Last Vital Signs Temp 98.4 F 01/29/22 12:04 Pulse 72 01/29/22 12:49 Resp 20 01/29/22 12:49 BP 102/62 01/29/22 12:49 Pulse Ox 95 01/29/22 12:04 O2 Del Method 01/29/22 12:04 O2 Flow Rate 2 01/29/22 12:04 FiO2 26 01/28/22 02:44 Oxygen Flow Rate 2 01/28/22 02:18 BMI result Body Mass Index 35.1 Gen: in NAD HEENT: sclera anicteric, moist mucus membranes Neck: supple Lungs: clear to auscultation bilaterally Heart: regular rate and rhythm, no murmurs, obese Abd: soft, non-tender, non-distended Ext: R knee tender, L ankle in splint, distally neurovascularly intact Skin: warm/well-perfused Neuro: alert and oriented x3, no focal findings Psych: appropriate affect Objective Data Active Medications Acetaminophen (Acetaminophen 325 Mg Tablet) 650 mg PO Q6H PRN PRN Reason: Pain, Mild (Pain Scale 1-3) Last Admin: 01/29/22 05:14 Dose: 650 mg Documented By: ADRIANO Albuterol Sulfate (Albuterol Sulfate 90 Mcg 8 Gm Inhaler) 2 puff INHALE Q6H PRN PRN Reason: shortness of breath or wheezing Ascorbic Acid (Ascorbic Acid 250 Mg Tablet) 250 mg PO DAILY [facility] Last Admin: 01/29/22 09:13 Dose: Not Given Documented By: MELLY Non-Admin Reason: Nausea Bupropion HCl (Bupropion Hcl 75 Mg Tablet) 75 mg PO BEDTIME [facility] Last Admin: 01/28/22 20:55 Dose: 75 mg Documented By: RYAN Calcium Carbonate (Calcium Carbonate 500 Mg Tablet) 500 mg PO DAILY [facility] Last Admin: 01/29/22 09:13 Dose: Not Given Documented By: MELLY Non-Admin Reason: Nausea Calcium Polycarbophil (Calcium Polycarbophil Tablet) 1 tab PO BID [facility] Last Admin: 01/29/22 09:13 Dose: Not Given Documented By: MELLY Non-Admin Reason: Nausea Clonazepam (Clonazepam 0.5 Mg Tablet) 0.5 mg PO BID PRN PRN Reason: Anxiety Last Admin: 01/28/22 13:38 Dose: 0.5 mg Documented By: SWETHA Docusate Sodium (Docusate Sodium 100 Mg Capsule) 100 mg PO DAILY [facility] Last Admin: 01/29/22 09:14 Dose: Not Given Documented By: MELLY Non-Admin Reason: Patient Refused Fluoxetine HCl (Fluoxetine Hcl 20 Mg Capsule) 60 mg PO DAILY [facility] Last Admin: 01/29/22 09:10 Dose: 60 mg Documented By: MELLY Gabapentin (Gabapentin 400 Mg Capsule) 800 mg PO TID [facility] Last Admin: 01/29/22 09:10 Dose: 800 mg Documented By: MELLY Morphine Sulfate () 100 mg in 100 mls @ 0 mls/hr IVCONT .Q0M [facility]; Protocol Last Admin: 01/28/22 16:28 Dose: 2 mg/hr, 2 mls/hr Documented By: WENCESLAO Levothyroxine Sodium (Levothyroxine Sodium 112 Mcg Tablet) 112 mcg PO DAILY@0600 [facility] Last Admin: 01/29/22 05:48 Dose: Not Given Documented By: ADRIANO Non-Admin Reason: Patient Refused Levothyroxine Sodium (Levothyroxine Sodium 25 Mcg Tablet) 25 mcg PO DAILY@0600 [facility] Last Admin: 01/29/22 05:05 Dose: 25 mcg Documented By: ADRIANO Loratadine (Loratadine 10 Mg Tablet) 10 mg PO DAILY [facility] Last Admin: 01/29/22 09:10 Dose: 10 mg Documented By: MELLY Melatonin (Melatonin 3 Mg Tablet) 6 mg PO BEDTIME [facility] Last Admin: 01/28/22 20:55 Dose: 6 mg Documented By: RYAN Metronidazole (Metronidazole 0.75 % Gel 45 Gm Tube) 1 appl TOPICAL BEDTIME [facility] Last Admin: 01/28/22 20:58 Dose: Not Given Documented By: RYAN Non-Admin Reason: Med Not Available Multivitamins/Vitamin C (Multivitamin Tablet) 1 tab PO DAILY [facility] Last Admin: 01/29/22 09:14 Dose: Not Given Documented By: MELLY Non-Admin Reason: Nausea Naloxone HCl (Naloxone Hcl 0.4 Mg/Ml Vial) 0.2 mg IVPUSH Q2M PRN PRN Reason: Excessive sedation or RR < 8 Omeprazole (Omeprazole 40 Mg Capsule.Dr) 40 mg PO DAILY@0630 [facility] Last Admin: 01/29/22 05:05 Dose: 40 mg Documented By: ADRIANO Ondansetron HCl (Ondansetron Hcl 4 Mg/2 Ml Vial) 4 mg IVPUSH Q8H PRN PRN Reason: Nausea and Vomiting Last Admin: 01/29/22 05:05 Dose: 4 mg Documented By: ADRIANO Pharmacy Consult (Consult Rx Perform Med Rec) 1 each MISCELLANE ONCE PRN PRN Reason: Consult order Polyethylene Glycol (Polyethylene Glycol 3350 17 Gm Powd.Pack) 17 gm PO DAILY [facility] Last Admin: 01/29/22 09:14 Dose: Not Given Documented By: MELLY Non-Admin Reason: Nausea Quetiapine Fumarate (Quetiapine Fumarate 300 Mg Tablet) 600 mg PO BEDTIME [facility] Last Admin: 01/28/22 20:56 Dose: 600 mg Documented By: RYAN Sodium Chloride (0.9 % Sodium Chloride Flush 3 Ml Syringe) 3 ml IVFLUSH QSHIFT [facility] Last Admin: 01/29/22 09:13 Dose: Not Given Documented By: MELLY Non-Admin Reason: IV Running Valacyclovir HCl (Valacyclovir Hcl 1,000 Mg Tablet) 1,000 mg PO DAILY [facility] Last Admin: 01/29/22 09:10 Dose: 1,000 mg Documented By: MELLY Vitamin D (Cholecalciferol (Vitamin D3) 25 Mcg Tablet) 25 mcg PO DAILY [facility] Last Admin: 01/29/22 09:13 Dose: Not Given Documented By: MELLY Non-Admin Reason: Nausea Labs CBC & Chem 7: 01/29/22 06:02 01/29/22 06:02 Labs: Laboratory Results - last 24 hr 01/28/22 01/28/22 01/29/22 13:49 19:28 06:02 MCV 95.3 MCH 31.3 MCHC 32.8 RDW 13.5 Plt Count 184 D MPV 9.7 Absolute Nucleated RBC 0.000 Nucleated RBC % (auto) 0.0 Anion Gap Estim Creat Clear Calc Estimated GFR Random Glucose Calcium Urine Color YELLOW Urine Appearance CLEAR Urine pH 6.0 Ur Specific [place] 1.015 Urine Protein NEG Urine Glucose (UA) NEG Urine Ketones NEG Urine Blood NEG Urine Nitrite NEG Ur Leukocyte Esterase NEG Blood Type A Negative Antibody Screen NEGATIVE 01/29/22 06:02 MCV MCH MCHC RDW Plt Count MPV Absolute Nucleated RBC Nucleated RBC % (auto) Anion Gap 11 L Estim Creat Clear Calc 94.5 Estimated GFR > 60 Random Glucose 131 H Calcium 8.3 L D Urine Color Urine Appearance Urine pH Ur Specific [place] Urine Protein Urine Glucose (UA) Urine Ketones Urine Blood Urine Nitrite Ur Leukocyte Esterase Blood Type Antibody Screen Assessment and Plan (1) Closed trimalleolar fracture: Status: Acute (2) Femoral distal fracture: Status: Acute Plan hospital d#2 61yo?F with hypothyroidism, chronic leukopenia, MARLENY not on CPAP, depression, and bilateral knee replacements who fell and sustained a left trimalleolar intra-articular fracture with tibiotalar dislocation [reduced] and a right transverse periprosthetic fracture of the distal femur. # ankle fracture # knee fracture - NPO after midnight for operative fixation tomorrow, no further preoperative testing indicated as she can achieve 4 METs of activity without angina or equivalent, pain control with morphien [employer] # hypothyroidism - continue LT4 # mood disorder - continue bupropion, quetiapine, fluoxetine # chronic back pain - continue gabapentin # VTE ppx - SCDs now, extended-duratinon LMWH postop Quality Stroke Does the patient have a stroke diagnosis?: No VTE Prior VTE?: No VTE Risk Level:: Medical - moderate - high VTE Device Contraindication: N/A - Device Ordered VTE Drug Contraindication: N/A - Med Ordered
--- NOTE | 2022-01-29 13:34 | MHC.CM.PN ---
PT W/LEFT ANKLE AND KNEE FX'S, PT NPO AFTER MIDNIGHT AND PLAN FOR SURGICAL REPAIR TOMORROW 01/30,CM MET W/PT AND DTR AT BEDSIDE AND PT REPORTS SHE BELIEVES SHE WILL NEED TO GO TO REHAB AND NOT HOME SHE LIVES ALONE AND DOES NOT THINK SHE WILL BE ABLE TO MANAGE, PT DOES PREFER ACUTE REHAB AT [place] OR [place] AND WILL DECIDE ONCE SHE IS OFFERED A BED. REFERRALS TO BE PLACED AND CM WILL CONT TO FOLLOW D/C NEEDS.
[2022-01-29] MEDS: Morphine Sulfate/NS 100 MG/100 ML PLAST..BAG IVCONT (14:34)
[2022-01-29] MEDS: buPROPion HCL 75 MG TABLET PO (20:24)
[2022-01-29] MEDS: QUEtiapine Fumarate 300 MG TABLET 600 MG PO (20:24)
[2022-01-29] MEDS: Melatonin 3 MG TABLET 6 MG PO (20:24)
[2022-01-29] MEDS: calcium polycarbophiL TABLET 1 TAB PO (20:24)
[2022-01-29] MEDS: 0.9 % Sodium Chloride Flush 3 ML SYRINGE IVFLUSH (20:25)
[2022-01-30] VITALS (12 sets, daily range): BP systolic 99–153; BP diastolic 57–81; PULSE 81–105; RESP 10–20; TEMP 36.5–37.3; O2SAT 92–98
[2022-01-30] MEDS: Acetaminophen 325 MG TABLET 650 MG PO (06:28)
[2022-01-30] MEDS: Levothyroxine Sodium 25 MCG TABLET PO (06:29)
[2022-01-30] MEDS: Levothyroxine Sodium 112 MCG TABLET PO (06:29)
[2022-01-30 06:40] LABS: Hematocrit 29.2 % (37.0-47.0); Hemoglobin 9.6 g/dl (12.0-16.0); Mean Corpuscular HGB Conc 32.9 g/dl (31.0-35.0); Mean Corpuscular Hemoglobin 31.7 pg (27.0-33.0); Mean Corpuscular Volume 96.4 fL (80.0-98.0); Mean Platelet Volume 9.7 fL (9.4-12.3); Platelet Count 152 X10*3/uL (160-400); Red Blood Count 3.03 X10*6/uL (4.20-5.50); Red Cell Distribution Width 13.2 % (11.0-16.0); White Blood Count 5.3 X10*3/uL (4.8-10.8)
[2022-01-30] MEDS: Gabapentin 400 MG CAPSULE 800 MG PO ×2 (08:37→21:03)
[2022-01-30] MEDS: FLUoxetine HCl 20 MG CAPSULE 60 MG PO (08:37)
[2022-01-30] MEDS: Loratadine 10 MG TABLET PO (08:37)
[2022-01-30] MEDS: valACYclovir HCL 1,000 MG TABLET 1000 MG PO (08:37)
[2022-01-30] MEDS: Multivitamin TABLET 1 TAB PO (08:37)
[2022-01-30] MEDS: calcium polycarbophiL TABLET 1 TAB PO ×2 (08:37→21:04)
[2022-01-30] MEDS: Ascorbic Acid 250 MG TABLET PO (08:37)
[2022-01-30] MEDS: Cholecalciferol (Vitamin D3) 25 MCG TABLET PO (08:37)
--- NOTE | 2022-01-30 10:55 | HO.PM.IMPN ---
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 Review of Systems Review of Systems: Yes all other systems are reviewed and are negative Physical Exam Vital Signs: Vital Signs: Last Vital Signs Temp 98.2 F 01/30/22 07:38 Pulse 89 01/30/22 07:38 Resp 20 01/30/22 07:38 BP 101/57 L 01/30/22 07:38 Pulse Ox 93 01/30/22 07:38 O2 Del Method 01/30/22 07:38 O2 Flow Rate 2 01/30/22 07:38 FiO2 26 01/28/22 02:44 Oxygen Flow Rate 2 01/28/22 02:18 BMI result Body Mass Index 35.1 Gen: anxious HEENT: sclera anicteric, moist mucus membranes Neck: supple Lungs: clear to auscultation bilaterally Heart: regular rate and rhythm, no murmurs, obese Abd: soft, non-tender, non-distended Ext: R knee tender, L ankle in splint, distally neurovascularly intact Skin: warm/well-perfused Neuro: alert and oriented x3, no focal findings Psych: appropriate affect Objective Data Active Medications Acetaminophen (Acetaminophen 325 Mg Tablet) 650 mg PO Q6H PRN PRN Reason: Pain, Mild (Pain Scale 1-3) Last Admin: 01/30/22 06:28 Dose: 650 mg Documented By: ADRIANO Albuterol Sulfate (Albuterol Sulfate 90 Mcg 8 Gm Inhaler) 2 puff INHALE Q6H PRN PRN Reason: shortness of breath or wheezing Ascorbic Acid (Ascorbic Acid 250 Mg Tablet) 250 mg PO DAILY [facility] Last Admin: 01/30/22 08:37 Dose: 250 mg Documented By: KIA Bupropion HCl (Bupropion Hcl 75 Mg Tablet) 75 mg PO BEDTIME [facility] Last Admin: 01/29/22 20:24 Dose: 75 mg Documented By: ANTOIC Calcium Carbonate (Calcium Carbonate 500 Mg Tablet) 500 mg PO DAILY [facility] Last Admin: 01/30/22 08:37 Dose: 500 mg Documented By: KIA Calcium Polycarbophil (Calcium Polycarbophil Tablet) 1 tab PO BID [facility] Last Admin: 01/30/22 08:37 Dose: 1 tab Documented By: KIA Clonazepam (Clonazepam 0.5 Mg Tablet) 0.5 mg PO BID PRN PRN Reason: Anxiety Last Admin: 01/28/22 13:38 Dose: 0.5 mg Documented By: SWETHA Docusate Sodium (Docusate Sodium 100 Mg Capsule) 100 mg PO DAILY [facility] Last Admin: 01/30/22 08:38 Dose: Not Given Documented By: KIA Non-Admin Reason: Patient Refused Fluoxetine HCl (Fluoxetine Hcl 20 Mg Capsule) 60 mg PO DAILY [facility] Last Admin: 01/30/22 08:37 Dose: 60 mg Documented By: KIA Gabapentin (Gabapentin 400 Mg Capsule) 800 mg PO TID [facility] Last Admin: 01/30/22 08:37 Dose: 800 mg Documented By: KIA Morphine Sulfate () 100 mg in 100 mls @ 0 mls/hr IVCONT .Q0M [facility]; Protocol Last Admin: 01/29/22 14:34 Dose: 2 mg/hr, 2 mls/hr Documented By: MELLY Lactated Ringer's (Lr) 1,000 mls @ 125 mls/hr IVCONT .Q8H [facility] Levothyroxine Sodium (Levothyroxine Sodium 112 Mcg Tablet) 112 mcg PO DAILY@0600 [facility] Last Admin: 01/30/22 06:29 Dose: 112 mcg Documented By: ADRIANO Levothyroxine Sodium (Levothyroxine Sodium 25 Mcg Tablet) 25 mcg PO DAILY@0600 [facility] Last Admin: 01/30/22 06:29 Dose: 25 mcg Documented By: ADRIANO Loratadine (Loratadine 10 Mg Tablet) 10 mg PO DAILY [facility] Last Admin: 01/30/22 08:37 Dose: 10 mg Documented By: KIA Melatonin (Melatonin 3 Mg Tablet) 6 mg PO BEDTIME [facility] Last Admin: 01/29/22 20:24 Dose: 6 mg Documented By: ELLY Metronidazole (Metronidazole 0.75 % Gel 45 Gm Tube) 1 appl TOPICAL BEDTIME [facility] Last Admin: 01/29/22 20:27 Dose: Not Given Documented By: ELLY Non-Admin Reason: Patient Refused Multivitamins/Vitamin C (Multivitamin Tablet) 1 tab PO DAILY [facility] Last Admin: 01/30/22 08:37 Dose: 1 tab Documented By: KIA Naloxone HCl (Naloxone Hcl 0.4 Mg/Ml Vial) 0.2 mg IVPUSH Q2M PRN PRN Reason: Excessive sedation or RR < 8 Omeprazole (Omeprazole 40 Mg Capsule.Dr) 40 mg PO DAILY@0630 [facility] Last Admin: 01/29/22 20:24 Dose: 40 mg Documented By: ANTROLANDA Ondansetron HCl (Ondansetron Hcl 4 Mg/2 Ml Vial) 4 mg IVPUSH Q8H PRN PRN Reason: Nausea and Vomiting Last Admin: 01/29/22 05:05 Dose: 4 mg Documented By: ADRIANO Pharmacy Consult (Consult Rx Perform Med Rec) 1 each MISCELLANE ONCE PRN PRN Reason: Consult order Polyethylene Glycol (Polyethylene Glycol 3350 17 Gm Powd.Pack) 17 gm PO DAILY [facility] Last Admin: 01/30/22 08:38 Dose: Not Given Documented By: KIA Non-Admin Reason: Patient Refused Quetiapine Fumarate (Quetiapine Fumarate 300 Mg Tablet) 600 mg PO BEDTIME [facility] Last Admin: 01/29/22 20:24 Dose: 600 mg Documented By: ELLY Sodium Chloride (0.9 % Sodium Chloride Flush 3 Ml Syringe) 3 ml IVFLUSH QSHIFT [facility] Last Admin: 01/30/22 08:38 Dose: Not Given Documented By: KIA Non-Admin Reason: IV Running Valacyclovir HCl (Valacyclovir Hcl 1,000 Mg Tablet) 1,000 mg PO DAILY [facility] Last Admin: 01/30/22 08:37 Dose: 1,000 mg Documented By: KIA Vitamin D (Cholecalciferol (Vitamin D3) 25 Mcg Tablet) 25 mcg PO DAILY [facility] Last Admin: 01/30/22 08:37 Dose: 25 mcg Documented By: KIA Labs CBC & Chem 7: 01/30/22 06:15 01/29/22 06:02 Labs: Laboratory Results - last 24 hr 01/30/22 06:15 MCV 96.4 MCH 31.7 MCHC 32.9 RDW 13.2 Plt Count 152 L MPV 9.7 Absolute Nucleated RBC 0.000 Nucleated RBC % (auto) 0.0 Assessment and Plan (1) Closed trimalleolar fracture: Status: Acute (2) Femoral distal fracture: Status: Acute Plan hospital d#3 61yo?F with hypothyroidism, chronic leukopenia, MARLENY not on CPAP, depression, and bilateral knee replacements who fell and sustained a left trimalleolar intra-articular fracture with tibiotalar dislocation [reduced] and a right transverse periprosthetic fracture of the distal femur. # ankle fracture # knee fracture - operative fixation today, on morphine MANAGER OF IT for pain contrl # acute blood loss anemia due to fracture - monitor H+H; T+S active Chronic issues # hypothyroidism: continue LT4 # mood disorder: continue bupropion, quetiapine, fluoxetine # chronic back pain: continue gabapentin # VTE ppx - SCDs now, extended-duration LMWH postoperatively x28d Quality Stroke Does the patient have a stroke diagnosis?: No VTE Prior VTE?: No VTE Risk Level:: Medical - moderate - high VTE Device Contraindication: N/A - Device Ordered VTE Drug Contraindication: N/A - Med Ordered
[2022-01-30] MEDS: Lactated Ringers 1,000 ML 125 ML IVCONT (11:57)
--- NOTE | 2022-01-30 12:09 | HO.ANESPROP2 ---
[facility] Active Problems Active Problems: All Active Problems (Updated 01/28/22 @ 03:26 by Greg Garcia MD) Fall (Acute) Closed trimalleolar fracture (Acute) Femoral distal fracture (Acute) Moderate recurrent major depression (Acute) Neck pain (Acute) Chronic constipation (Acute) Tracheobronchitis (Acute) Leucopenia (Chronic) Hypothyroid (Acute) MARLENY (obstructive sleep apnea) (Acute) Spondylosis of lumbosacral spine with radiculopathy (Acute) Failed back syndrome (Acute) Low TSH level (Acute) Encounter for screening colonoscopy (Acute) Obesity (BMI 30-39.9) (Acute) BMI 34.0-34.9,adult (Acute) Umbilical hernia (Acute) Liver cyst (Acute) History of small bowel obstruction (Acute) Lumbar degenerative disc disease (Acute) Hematuria (Acute) GERD (gastroesophageal reflux disease) (Acute) Past Medical History Medical History Anemia Arthritis Depression Hypothyroid IBS (irritable bowel syndrome) Leukopenia Migraines Sleep apnea Family History Family History Father FH: prostate cancer Mother Breast cancer Family history of problems with anesthesia: No Surgical History Surgical History H/O hernia repair H/O knee surgery H/O tubal ligation H/O: hysterectomy History of back surgery History of bilateral knee replacement History of bladder surgery History of delivery History of endometrial ablation History of esophagogastroduodenoscopy (EGD) History of surgery Hx of colonoscopy History of Problems with Anesthesia: No Social History Social History Household Members: None Housing: House 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) Alcohol intake: former Patient Tobacco Use Status: Former Tobacco user Quit Date: 1999 Tobacco use type: Cigarette Years Smoked: 25 e-Cigarette/Vaping Use: Never Used Second Hand Smoke Exposure: No service: No Current occupational status: unemployed and disabled Cognitive needs: No Hearing needs: No Vision needs: No Meds Allergies Allergy/AdvReac Type Severity Reaction Status Date / Time amoxicillin [Augmentin] Allergy Intermediate rash Verified 01/28/22 01:04 cat dander Allergy Intermediate NASAL Verified 01/28/22 01:04 SYMPTOMS clavulanic acid [Augmentin] Allergy Intermediate rash Verified 01/28/22 01:04 trazodone [TRAZODONE] Allergy Intermediate I CAN'T Verified 01/28/22 01:04 BREATHE RIGHT , shortness of breath Active Medications: Current Medications Acetaminophen (Acetaminophen 325 Mg Tablet) 650 mg PO Q6H PRN PRN Reason: Pain, Mild (Pain Scale 1-3) Last Admin: 01/30/22 06:28 Dose: 650 mg Albuterol Sulfate (Albuterol Sulfate 90 Mcg 8 Gm Inhaler) 2 puff INHALE Q6H PRN PRN Reason: shortness of breath or wheezing Ascorbic Acid (Ascorbic Acid 250 Mg Tablet) 250 mg PO DAILY [facility] Last Admin: 01/30/22 08:37 Dose: 250 mg Bupropion HCl (Bupropion Hcl 75 Mg Tablet) 75 mg PO BEDTIME [facility] Last Admin: 01/29/22 20:24 Dose: 75 mg Calcium Carbonate (Calcium Carbonate 500 Mg Tablet) 500 mg PO DAILY [facility] Last Admin: 01/30/22 08:37 Dose: 500 mg Calcium Polycarbophil (Calcium Polycarbophil Tablet) 1 tab PO BID [facility] Last Admin: 01/30/22 08:37 Dose: 1 tab Clonazepam (Clonazepam 0.5 Mg Tablet) 0.5 mg PO BID PRN PRN Reason: Anxiety Last Admin: 01/28/22 13:38 Dose: 0.5 mg Docusate Sodium (Docusate Sodium 100 Mg Capsule) 100 mg PO DAILY [facility] Last Admin: 01/30/22 08:38 Dose: Not Given Fluoxetine HCl (Fluoxetine Hcl 20 Mg Capsule) 60 mg PO DAILY [facility] Last Admin: 01/30/22 08:37 Dose: 60 mg Gabapentin (Gabapentin 400 Mg Capsule) 800 mg PO TID [facility] Last Admin: 01/30/22 08:37 Dose: 800 mg Morphine Sulfate () 100 mg in 100 mls @ 0 mls/hr IVCONT .Q0M [facility]; Protocol Last Admin: 01/29/22 14:34 Dose: 2 mg/hr, 2 mls/hr Lactated Ringer's (Lr) 1,000 mls @ 125 mls/hr IVCONT .Q8H [facility] Last Admin: 01/30/22 11:57 Dose: 125 mls/hr Levothyroxine Sodium (Levothyroxine Sodium 112 Mcg Tablet) 112 mcg PO DAILY@0600 [facility] Last Admin: 01/30/22 06:29 Dose: 112 mcg Levothyroxine Sodium (Levothyroxine Sodium 25 Mcg Tablet) 25 mcg PO DAILY@0600 [facility] Last Admin: 01/30/22 06:29 Dose: 25 mcg Loratadine (Loratadine 10 Mg Tablet) 10 mg PO DAILY [facility] Last Admin: 01/30/22 08:37 Dose: 10 mg Melatonin (Melatonin 3 Mg Tablet) 6 mg PO BEDTIME [facility] Last Admin: 01/29/22 20:24 Dose: 6 mg Metronidazole (Metronidazole 0.75 % Gel 45 Gm Tube) 1 appl TOPICAL BEDTIME [facility] Last Admin: 01/29/22 20:27 Dose: Not Given Multivitamins/Vitamin C (Multivitamin Tablet) 1 tab PO DAILY [facility] Last Admin: 01/30/22 08:37 Dose: 1 tab Naloxone HCl (Naloxone Hcl 0.4 Mg/Ml Vial) 0.2 mg IVPUSH Q2M PRN PRN Reason: Excessive sedation or RR < 8 Omeprazole (Omeprazole 40 Mg Capsule.Dr) 40 mg PO DAILY@0630 [facility] Last Admin: 01/29/22 20:24 Dose: 40 mg Ondansetron HCl (Ondansetron Hcl 4 Mg/2 Ml Vial) 4 mg IVPUSH Q8H PRN PRN Reason: Nausea and Vomiting Last Admin: 01/29/22 05:05 Dose: 4 mg Pharmacy Consult (Consult Rx Perform Med Rec) 1 each MISCELLANE ONCE PRN PRN Reason: Consult order Polyethylene Glycol (Polyethylene Glycol 3350 17 Gm Powd.Pack) 17 gm PO DAILY [facility] Last Admin: 01/30/22 08:38 Dose: Not Given Quetiapine Fumarate (Quetiapine Fumarate 300 Mg Tablet) 600 mg PO BEDTIME [facility] Last Admin: 01/29/22 20:24 Dose: 600 mg Sodium Chloride (0.9 % Sodium Chloride Flush 3 Ml Syringe) [facility] Last Admin: 01/30/22 08:38 Dose: Not Given Valacyclovir HCl (Valacyclovir Hcl 1,000 Mg Tablet) 1,000 mg PO DAILY [facility] Last Admin: 01/30/22 08:37 Dose: 1,000 mg Vitamin D (Cholecalciferol (Vitamin D3) 25 Mcg Tablet) 25 mcg PO DAILY [facility] Last Admin: 01/30/22 08:37 Dose: 25 mcg Home Medications Medication Instructions Recorded Confirmed Last Taken Type calcium carbonate 500 mg calcium 500 mg PO DAILY 10/01/20 01/28/22 01/27/22 History (1,250 mg) tablet (Calcium 500) docusate sodium 100 mg capsule 100 mg PO DAILY 10/01/20 01/28/22 01/27/22 History (Stool Softener) glucosamine HCl 500 mg tablet 500 mg PO DAILY 10/01/20 01/28/22 01/27/22 History multivitamin 1 tab PO DAILY 10/01/20 01/28/22 01/27/22 History omega-3 fatty acids 1,000 mg 1,000 mg PO DAILY 10/01/20 01/28/22 01/27/22 History capsule (Fish Oil Concentrate) bupropion HCl 75 mg tablet 75 mg PO BEDTIME 04/04/21 01/28/22 01/27/22 History clonazepam 0.5 mg tablet 0.5 mg PO BID PRN Anxiety 04/04/21 01/28/22 01/27/22 History fluoxetine 20 mg capsule 60 mg PO QAM 04/04/21 01/28/22 01/27/22 History melatonin 5 mg tablet 5 mg PO BEDTIME 04/04/21 01/28/22 01/27/22 History metronidazole 0.75 % topical gel 1 appl topical BEDTIME 04/04/21 01/28/22 Unknown History quetiapine 300 mg tablet 600 mg PO BEDTIME 04/04/21 01/28/22 01/27/22 History ascorbic acid (vitamin C) 100 mg 100 mg PO DAILY 01/28/22 01/28/22 01/27/22 History tablet cholecalciferol (vitamin D3) 25 25 mcg PO DAILY 01/28/22 01/28/22 01/27/22 History mcg (1,000 unit) tablet (Vitamin D3) Exam Exam Date and Time: January 30, 2022 1209 Height,Weight and Vital Signs: Height 5 ft 6 in Weight 98.7 kg Last Vital Signs Temp 97.7 F 01/30/22 11:25 Pulse 89 01/30/22 11:25 Resp 20 01/30/22 11:25 BP 99/57 L 01/30/22 11:25 Pulse Ox 95 01/30/22 11:25 O2 Del Method 01/30/22 11:25 O2 Flow Rate 2 01/30/22 11:25 FiO2 26 01/28/22 02:44 Oxygen Flow Rate 2 01/28/22 02:18 Pertinent Lab Results Pertinent Lab Results: Laboratory Tests 01/28/22 01/28/22 01/28/22 01:47 01:47 01:47 WBC 8.3 RBC 4.03 L Hgb 12.5 Hct 38.5 MCV 95.5 MCH 31.0 MCHC 32.5 RDW 13.3 Plt Count 257 D MPV 9.6 Immature Gran % (Auto) 0.2 Neut % (Auto) 63.6 Lymph % (Auto) 29.2 [place] % (Auto) 5.5 Eos % (Auto) 1.1 Baso % (Auto) 0.4 Lymph # (Auto) 2.4 [place] # (Auto) 0.5 Eos # (Auto) 0.1 Baso # (Auto) 0.0 Abs Immat Gran (auto) 0.02 Absolute Neuts (auto) 5.3 Absolute Nucleated RBC 0.000 Nucleated RBC % (auto) 0.0 Sodium 136 Potassium 3.8 Chloride 101 Carbon Dioxide 21 L Anion Gap 18 BUN 16 Creatinine 1.06 Estim Creat Clear Calc 66.7 Estimated GFR 53 Random Glucose 118 H Calcium 9.6 Total Bilirubin 0.4 AST 23 ALT 15 Alkaline Phosphatase 80 Total Protein 6.9 Albumin 4.2 Lipase 30 Urine Color Urine Appearance Urine pH Ur Specific Art Urine Protein Urine Glucose (UA) Urine Ketones Urine Blood Urine Nitrite Ur Leukocyte Esterase COVID-19 ([facility]) Negative COVID-19 Clin Com See Note Blood Type Antibody Screen 01/28/22 01/28/22 01/29/22 13:49 19:28 06:02 WBC 6.5 RBC 3.42 L Hgb 10.7 L Hct 32.6 L MCV 95.3 MCH 31.3 MCHC 32.8 RDW 13.5 Plt Count 184 D MPV 9.7 Immature Gran % (Auto) Neut % (Auto) Lymph % (Auto) [place] % (Auto) Eos % (Auto) Baso % (Auto) Lymph # (Auto) [place] # (Auto) Eos # (Auto) Baso # (Auto) Abs Immat Gran (auto) Absolute Neuts (auto) Absolute Nucleated RBC 0.000 Nucleated RBC % (auto) 0.0 Sodium Potassium Chloride Carbon Dioxide Anion Gap BUN Creatinine Estim Creat Clear Calc Estimated GFR Random Glucose Calcium Total Bilirubin AST ALT Alkaline Phosphatase Total Protein Albumin Lipase Urine Color YELLOW Urine Appearance CLEAR Urine pH 6.0 Ur Specific Art 1.015 Urine Protein NEG Urine Glucose (UA) NEG Urine Ketones NEG Urine Blood NEG Urine Nitrite NEG Ur Leukocyte Esterase NEG COVID-19 ([facility]) COVID-19 Clin Com Blood Type A Negative Antibody Screen NEGATIVE 01/29/22 01/30/22 06:02 06:15 WBC 5.3 RBC 3.03 L Hgb 9.6 L Hct 29.2 L MCV 96.4 MCH 31.7 MCHC 32.9 RDW 13.2 Plt Count 152 L MPV 9.7 Immature Gran % (Auto) Neut % (Auto) Lymph % (Auto) [place] % (Auto) Eos % (Auto) Baso % (Auto) Lymph # (Auto) [place] # (Auto) Eos # (Auto) Baso # (Auto) Abs Immat Gran (auto) Absolute Neuts (auto) Absolute Nucleated RBC 0.000 Nucleated RBC % (auto) 0.0 Sodium 135 Potassium 4.1 Chloride 103 Carbon Dioxide 25 Anion Gap 11 L BUN 17 H Creatinine 0.74 Estim Creat Clear Calc 94.5 Estimated GFR > 60 Random Glucose 131 H Calcium 8.3 L D Total Bilirubin AST ALT Alkaline Phosphatase Total Protein Albumin Lipase Urine Color Urine Appearance Urine pH Ur Specific Art Urine Protein Urine Glucose (UA) Urine Ketones Urine Blood Urine Nitrite Ur Leukocyte Esterase COVID-19 ([facility]) COVID-19 Clin Com Blood Type Antibody Screen Airway Mallampati Class: II TM Dist: >3cm Neck ROM: Full Assessment and Plan Assessment Anesthesia Assessment: Anesthesia Plan Discussed and Chart Reviewed Final Anesthetic Review Family History of Problems with Anesthesia: No History of Problems with Anesthesia: No NPO: Yes ASA Class: III Final Preanesthetic Review: No Changes in Pt Med Stat, Meds/Allgs Chart Reviewed, Consent Obtained/Reviewed and Anes Risks/Benef Reviewed Patient Risk: Intermediate Procedure Risk: Low Anesthetic Plan Anesthetic Plan: GA Disposition: Standard PACU
--- NOTE | 2022-01-30 12:40 | MHC.SHP ---
Pre-Procedural Eval Section A Date of Service: 01/30/22 The patient is an INPATIENT: No Changes since office visit: Yes Patient answered all questions; No Cold of Flu in the past 2 weeks, No New Medical Problems and No Changes in Medication The History & Physical has been completed within 30 days and I have reviewed it.: Yes Section B Chief Complaint: right knee and ankle pain after mechanical fall Allergies: Allergies Allergy/AdvReac Type Severity Reaction Status Date / Time amoxicillin [Augmentin] Allergy Intermediate rash Verified 01/28/22 01:04 cat dander Allergy Intermediate NASAL Verified 01/28/22 01:04 SYMPTOMS clavulanic acid [Augmentin] Allergy Intermediate rash Verified 01/28/22 01:04 trazodone [TRAZODONE] Allergy Intermediate I CAN'T Verified 01/28/22 01:04 BREATHE RIGHT , shortness of breath Plan I have reviewed the history and physical and performed a pertinent physical examination on my patient. No changes have occurred unless specified.
--- NOTE | 2022-01-30 17:34 | PM.OP ---
Brief Operative Note Date of Service: 01/30/22 Pre-op diagnosis: right periprosthetic distal femur fracture left ankle bimalleolar fracture Post-op diagnosis: same Procedure: 1) Retrograde IMN Right femur 2) revision Right knee arthroplasty ( liner exchange only) 3) Left ankle bimalleolar ORIF Implants: [place] ankle lateral locking plate and 3 cannulated screws medially [place] alpha T2 200 mm retrograde nail with 4 distal and 2 procimal interlocking screws [place] Triathalon 5x16 TS PE insert Surgeon: Sinan Gibbs MD Anesthesia: GETA and local Was an Senior Microstrategy Developer used for this Procedure?: Yes Senior Microstrategy Developer: Tosha Tang Estimated blood loss (mL): 350 IV fluids (mL): 1,500 Pathology: none sent Condition: stable Disposition: PACU
[2022-01-30] MEDS: QUEtiapine Fumarate 300 MG TABLET 600 MG PO (21:03)
[2022-01-30] MEDS: metroNIDAZOLE 0.75 % Gel 45 GM TUBE 1 APPL TOPICAL (21:03)
[2022-01-30] MEDS: Melatonin 3 MG TABLET 6 MG PO (21:03)
[2022-01-30] MEDS: buPROPion HCL 75 MG TABLET PO (21:03)
[2022-01-30] MEDS: ondansetron HCL 4 MG/2 ML VIAL IVPUSH (21:04)
[2022-01-31] VITALS (21 sets, daily range): BP systolic 99–134; BP diastolic 49–74; PULSE 72–100; RESP 14–18; TEMP 36.8–37.8; O2SAT 92–98
[2022-01-31] MEDS: Morphine Sulfate/NS 100 MG/100 ML PLAST..BAG IVCONT (02:07)
--- NOTE | 2022-01-31 02:11 | PC.NURSE ---
Morphine bag changed in [employer] pump at 0210 due to being empty. MAR still showing 29ml of waste from original bag. There was no medication to waste in pyxis. Discrepancy appears to be because scheduled rate of 2mg/hr was being documented, but patient boluses were not subtracted from total amount in MAR prior to shift. Quality Assurance Assessor aware.
[2022-01-31] MEDS: Levothyroxine Sodium 112 MCG TABLET PO (05:31)
[2022-01-31] MEDS: Omeprazole 40 MG CAPSULE.DR PO (05:31)
[2022-01-31] MEDS: ondansetron HCL 4 MG/2 ML VIAL IVPUSH (05:31)
[2022-01-31] MEDS: Levothyroxine Sodium 25 MCG TABLET PO (05:31)
[2022-01-31] MEDS: Lactated Ringers 1,000 ML 125 ML IVCONT ×2 (05:34→18:11)
[2022-01-31 07:12] LABS: Hematocrit 24.3 % (37.0-47.0); Mean Corpuscular HGB Conc 32.9 g/dl (31.0-35.0); Mean Corpuscular Hemoglobin 31.3 pg (27.0-33.0); Mean Corpuscular Volume 94.9 fL (80.0-98.0); Mean Platelet Volume 9.9 fL (9.4-12.3); Platelet Count 140 X10*3/uL (160-400); Red Blood Count 2.56 X10*6/uL (4.20-5.50); White Blood Count 5.4 X10*3/uL (4.8-10.8)
[2022-01-31 07:38] LABS: Anion Gap 9 (12-20); Blood Urea Nitrogen 8 mg/dL (9-16); Carbon Dioxide 28 mmol/L (22-29); Chloride 98 mmol/L (96-108); Estimated Glomerular Filt Rate > 60; Glucose Random 119 mg/dL (60-115); Potassium 3.6 mmol/L (3.3-5.1); Sodium 131 mmol/L (135-145)
[2022-01-31] MEDS: 0.9 % Sodium Chloride Flush 3 ML SYRINGE IVFLUSH ×2 (08:55→16:19)
[2022-01-31] MEDS: Ascorbic Acid 250 MG TABLET PO (08:56)
[2022-01-31] MEDS: Multivitamin TABLET 1 TAB PO (08:56)
[2022-01-31] MEDS: polyethylene glycoL 3350 17 GM POWD.PACK PO (08:56)
[2022-01-31] MEDS: Cholecalciferol (Vitamin D3) 25 MCG TABLET PO (08:56)
[2022-01-31] MEDS: FLUoxetine HCl 20 MG CAPSULE 60 MG PO (08:56)
[2022-01-31] MEDS: Loratadine 10 MG TABLET PO (08:57)
[2022-01-31] MEDS: calcium polycarbophiL TABLET 1 TAB PO ×2 (08:57→21:00)
[2022-01-31] MEDS: valACYclovir HCL 1,000 MG TABLET 1000 MG PO (08:57)
[2022-01-31] MEDS: Docusate Sodium 100 MG CAPSULE PO (08:57)
[2022-01-31] MEDS: Gabapentin 400 MG CAPSULE 800 MG PO ×3 (08:57→21:01)
--- NOTE | 2022-01-31 09:28 | HO.POSTANES ---
Post Anesthesia Evaluation Post Anesthesia Evaluation Vital Signs: Vital Signs Temp Pulse Resp BP Pulse Ox O2 Del Method O2 Flow Rate 01/31/22 09:00 96 18 107/59 L 94 01/31/22 08:30 96 107/59 L 94 01/31/22 07:59 98.3 F 96 18 107/59 L 94 Nasal Cannula 2 01/31/22 07:05 96 16 134/70 97 01/31/22 06:04 98.9 F 01/31/22 05:57 90 16 128/70 97 01/31/22 04:08 100.1 F 96 18 118/62 92 Nasal Cannula 2 01/31/22 04:04 96 16 132/68 96 01/31/22 02:07 90 16 118/66 98 01/31/22 01:04 90 16 124/68 97 01/30/22 23:14 98.7 F 94 16 111/60 92 Nasal Cannula 2 01/30/22 23:04 88 18 96 Anesthesia: General LMA Mental Status: Awake Pain Control: Satisfactory Nausea/Vomiting: None Hydration: Adequate Anesthesia-Related Issues: No Anes. Related Issues
--- NOTE | 2022-01-31 11:53 | P.PNOP_ITS ---
Subjective Subjective Date of Service: 01/31/22 Interval history: POD 1 s/p Right femura ORIF with liner exchange right tka s/p Left ankle orif no overnight events patient is upset about her care-wants to elevate her leg but told she cannot bend the knee denies sob, chest pain, palpitations Physical Exam Vital Signs: Vital Signs: Last Vital Signs Temp 98.3 F 01/31/22 07:59 Pulse 96 01/31/22 09:00 Resp 18 01/31/22 09:00 BP 107/59 L 01/31/22 09:00 Pulse Ox 94 01/31/22 09:00 O2 Del Method 01/31/22 07:59 O2 Flow Rate 2 01/31/22 07:59 FiO2 26 01/28/22 02:44 Oxygen Flow Rate 2 01/28/22 02:18 BMI result Body Mass Index 35.1 Const: General: cooperative, healthy appearing and no acute distress Resp: Effort & Inspection: normal respiratory effort and able to speak in complete sentences Cardio: Rate: regular rate Peripheral pulses: Peripheral pulses 2+ throughout GI: Palpation (GI): Soft to palpation Skin: General skin exam: no rashes or lesions noted Extrem: Other: left ankle splint intact, she has good motion and cap refill right knee incision clean dry and intact, able to move ankle and toes, NVI. Procedures Date of Service Date of Service: 01/31/22 Progress Note: A&P Assessment and plan (1) Femoral distal fracture: Status: Acute (2) Closed trimalleolar fracture: Status: Acute Plan * Continue pain mgmnt * Begin lovenox for dvt ppx * begin PT / OT : * ----Left ankle NWB, elevate omn 3 pillows above heart level * ----Right femur --ok to use brace for comfort and to help elevate the leg. 50% wbat with brace intact, ok to work on ROM of the knee. * Dispo planning-Pending PT eval, pain mgmnt Time Spent With Patient Time: Total time spent is greater than 50% in coordination of care (as documented) at patient's floor/unit and/or counseling patient: Quality Stroke Does the patient have a stroke diagnosis?: No VTE Prior VTE?: No VTE Risk Level:: Medical - moderate - high VTE Device Contraindication: N/A - Device Ordered VTE Drug Contraindication: N/A - Med Ordered
--- NOTE | 2022-01-31 12:45 | P.PNIM_ITS ---
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 Review of Systems Review of Systems: Yes all other systems are reviewed and are negative Physical Exam Vital Signs: Vital Signs: Last Vital Signs Temp 99.7 F 01/31/22 12:38 Pulse 100 01/31/22 12:38 Resp 18 01/31/22 12:38 BP 109/53 L 01/31/22 12:38 Pulse Ox 94 01/31/22 12:38 O2 Del Method 01/31/22 12:38 O2 Flow Rate 2 01/31/22 12:38 FiO2 26 01/28/22 02:44 Oxygen Flow Rate 2 01/28/22 02:18 BMI result Body Mass Index 35.1 Const: General: cooperative, healthy appearing and no acute distress Resp: Effort & Inspection: normal respiratory effort and able to speak in com plete sentences Cardio: Rate: regular rate Peripheral pulses: Peripheral pulses 2+ throughout GI: Palpation (GI): Soft to palpation Skin: General skin exam: no rashes or lesions noted Extrem: Other: left ankle splint intact, she has good motion and cap refill right knee incision clean dry and intact, able to move ankle and toes, NVI. Objective Data Active Medications Acetaminophen (Acetaminophen 325 Mg Tablet) 650 mg PO Q6H PRN PRN Reason: Pain, Mild (Pain Scale 1-3) Last Admin: 01/30/22 06:28 Dose: 650 mg Documented By: ADRIANO Acetaminophen (Acetaminophen 325 Mg Tablet) 975 mg PO Q6H PRN PRN Reason: pain Albuterol Sulfate (Albuterol Sulfate 90 Mcg 8 Gm Inhaler) 2 puff INHALE Q6H PRN PRN Reason: shortness of breath or wheezing Ascorbic Acid (Ascorbic Acid 250 Mg Tablet) 250 mg PO DAILY [facility] Last Admin: 01/31/22 08:56 Dose: 250 mg Documented By: HAN Bupropion HCl (Bupropion Hcl 75 Mg Tablet) 75 mg PO BEDTIME [facility] Last Admin: 01/30/22 21:03 Dose: 75 mg Documented By: BRAVO Calcium Carbonate (Calcium Carbonate 500 Mg Tablet) 500 mg PO DAILY [facility] Last Admin: 01/31/22 08:57 Dose: 500 mg Documented By: HAN Calcium Polycarbophil (Calcium Polycarbophil Tablet) 1 tab PO BID [facility] Last Admin: 01/31/22 08:57 Dose: 1 tab Documented By: HAN Clonazepam (Clonazepam 0.5 Mg Tablet) 0.5 mg PO BID PRN PRN Reason: Anxiety Last Admin: 01/28/22 13:38 Dose: 0.5 mg Documented By: SWETHA Docusate Sodium (Docusate Sodium 100 Mg Capsule) 100 mg PO DAILY [facility] Last Admin: 01/31/22 08:57 Dose: 100 mg Documented By: HAN Enoxaparin Sodium (Enoxaparin Sodium 40 Mg/0.4 Ml Syringe) 40 mg SUBCUT Q24H [facility] Fluoxetine HCl (Fluoxetine Hcl 20 Mg Capsule) 60 mg PO DAILY [facility] Last Admin: 01/31/22 08:56 Dose: 60 mg Documented By: HAN Gabapentin (Gabapentin 400 Mg Capsule) 800 mg PO TID [facility] Last Admin: 01/31/22 08:57 Dose: 800 mg Documented By: HAN Morphine Sulfate () 100 mg in 100 mls @ 0 mls/hr IVCONT .Q0M [facility]; Protocol Last Infusion: 01/31/22 11:02 Dose: 2 mg/hr, 2 mls/hr Documented By: HAN Lactated Ringer's (Lr) 1,000 mls @ 125 mls/hr IVCONT .Q8H [facility] Last Admin: 01/31/22 09:28 Dose: Not Given Documented By: HAN Non-Admin Reason: IV Running Levothyroxine Sodium (Levothyroxine Sodium 112 Mcg Tablet) 112 mcg PO DAILY@0600 [facility] Last Admin: 01/31/22 05:31 Dose: 112 mcg Documented By: BRAVO Levothyroxine Sodium (Levothyroxine Sodium 25 Mcg Tablet) 25 mcg PO DAILY@0600 [facility] Last Admin: 01/31/22 05:31 Dose: 25 mcg Documented By: BRAVO Loratadine (Loratadine 10 Mg Tablet) 10 mg PO DAILY [facility] Last Admin: 01/31/22 08:57 Dose: 10 mg Documented By: HAN Melatonin (Melatonin 3 Mg Tablet) 6 mg PO BEDTIME [facility] Last Admin: 01/30/22 21:03 Dose: 6 mg Documented By: BRAVO Metronidazole (Metronidazole 0.75 % Gel 45 Gm Tube) 1 appl TOPICAL BEDTIME [facility] Last Admin: 01/30/22 21:03 Dose: 1 appl Documented By: BRAVO Multivitamins/Vitamin C (Multivitamin Tablet) 1 tab PO DAILY [facility] Last Admin: 01/31/22 08:56 Dose: 1 tab Documented By: HAN Naloxone HCl (Naloxone Hcl 0.4 Mg/Ml Vial) 0.2 mg IVPUSH Q2M PRN PRN Reason: Excessive sedation or RR < 8 Omeprazole (Omeprazole 40 Mg Capsule.Dr) 40 mg PO DAILY@0630 [facility] Last Admin: 01/31/22 05:31 Dose: 40 mg Documented By: BRAVO Ondansetron HCl (Ondansetron Hcl 4 Mg/2 Ml Vial) 4 mg IVPUSH Q8H PRN PRN Reason: Nausea and Vomiting Last Admin: 01/31/22 05:31 Dose: 4 mg Documented By: BRAVO Pharmacy Consult (Consult Rx Perform Med Rec) 1 each MISCELLANE ONCE PRN PRN Reason: Consult order Polyethylene Glycol (Polyethylene Glycol 3350 17 Gm Powd.Pack) 17 gm PO DAILY [facility] Last Admin: 01/31/22 08:56 Dose: 17 gm Documented By: HAN Quetiapine Fumarate (Quetiapine Fumarate 300 Mg Tablet) 600 mg PO BEDTIME [facility] Last Admin: 01/30/22 21:03 Dose: 600 mg Documented By: BRAVO Sodium Chloride (0.9 % Sodium Chloride Flush 3 Ml Syringe) 3 ml IVFLUSH [facility] Last Admin: 01/31/22 08:55 Dose: 3 ml Documented By: HAN Valacyclovir HCl (Valacyclovir Hcl 1,000 Mg Tablet) 1,000 mg PO DAILY [facility] Last Admin: 01/31/22 08:57 Dose: 1,000 mg Documented By: HAN Vitamin D (Cholecalciferol (Vitamin D3) 25 Mcg Tablet) 25 mcg PO DAILY [facility] Last Admin: 01/31/22 08:56 Dose: 25 mcg Documented By: HAN Labs CBC & Chem 7: 01/31/22 06:39 01/31/22 06:39 Labs: Laboratory Results - last 24 hr 06/25/22 06/25/22 06:39 06:39 MCV 94.9 MCH 31.3 MCHC 32.9 RDW 13.0 Plt Count 140 L MPV 9.9 Absolute Nucleated RBC 0.000 Nucleated RBC % (auto) 0.0 Anion Gap 9 L Estim Creat Clear Calc 140.0 Estimated GFR > 60 Random Glucose 119 H Calcium 8.0 L Assessment and Plan (1) Closed trimalleolar fracture: Status: Acute (2) Femoral distal fracture: Status: Acute Plan hospital d#4 61yo?F with hypothyroidism, chronic leukopenia, MARLENY not on CPAP, depression, and bilateral knee replacements who fell and sustained a left trimalleolar intra- articular fracture with tibiotalar dislocation [reduced] and a right transverse periprosthetic fracture of the distal femur. 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
[2022-01-31] MEDS: oxyCODONE HCl Immed Release 5 MG TABLET 10 MG PO ×2 (13:07→19:46)
[2022-01-31] MEDS: Enoxaparin Sodium 40 MG/0.4 ML SYRINGE SUBCUT (15:52)
[2022-01-31] MEDS: buPROPion HCL 75 MG TABLET PO (21:01)
[2022-01-31] MEDS: QUEtiapine Fumarate 300 MG TABLET 600 MG PO (22:34)
[2022-01-31] MEDS: Melatonin 3 MG TABLET 6 MG PO (22:34)
[2022-01-31] MEDS: metroNIDAZOLE 0.75 % Gel 45 GM TUBE 1 APPL TOPICAL (22:35)
[2022-02-01] VITALS (16 sets, daily range): BP systolic 89–129; BP diastolic 47–65; PULSE 87–101; RESP 16–20; TEMP 36.7–38.7; O2SAT 90–98
[2022-02-01] MEDS: Acetaminophen 325 MG TABLET 650 MG PO ×3 (03:45→23:36)
[2022-02-01] MEDS: Lactated Ringers 1,000 ML 125 ML IVCONT (03:50)
[2022-02-01] MEDS: Levothyroxine Sodium 112 MCG TABLET PO (05:14)
[2022-02-01] MEDS: Levothyroxine Sodium 25 MCG TABLET PO (05:14)
[2022-02-01] MEDS: Omeprazole 40 MG CAPSULE.DR PO (05:15)
[2022-02-01] MEDS: Morphine Sulfate/NS 100 MG/100 ML PLAST..BAG IVCONT (08:59)
[2022-02-01 09:49] LABS: Hematocrit 21.2 % (37.0-47.0); Mean Corpuscular Hemoglobin 31.4 pg (27.0-33.0); Mean Corpuscular Volume 95.1 fL (80.0-98.0); Mean Platelet Volume 9.8 fL (9.4-12.3); Platelet Count 142 X10*3/uL (160-400); Red Blood Count 2.23 X10*6/uL (4.20-5.50); Red Cell Distribution Width 13.1 % (11.0-16.0)
[2022-02-01 10:00] LABS: White Blood Count 4.1 X10*3/uL (4.8-10.8)
[2022-02-01 10:04] LABS: Anion Gap 10 (12-20); Blood Urea Nitrogen 6 mg/dL (9-16); Calcium 7.8 mg/dL (8.4-10.2); Carbon Dioxide 31 mmol/L (22-29); Chloride 98 mmol/L (96-108); Estimated Glomerular Filt Rate > 60; Glucose Fasting 102 mg/dL (60-99); Potassium 3.5 mmol/L (3.3-5.1); Sodium 135 mmol/L (135-145)
[2022-02-01] MEDS: Docusate Sodium 100 MG CAPSULE PO (11:43)
[2022-02-01] MEDS: Gabapentin 400 MG CAPSULE 800 MG PO ×3 (11:43→22:04)
[2022-02-01] MEDS: Cholecalciferol (Vitamin D3) 25 MCG TABLET PO (11:43)
[2022-02-01] MEDS: valACYclovir HCL 1,000 MG TABLET 1000 MG PO (11:43)
[2022-02-01] MEDS: calcium polycarbophiL TABLET 1 TAB PO ×2 (11:43→22:04)
[2022-02-01] MEDS: Multivitamin TABLET 1 TAB PO (11:44)
[2022-02-01] MEDS: FLUoxetine HCl 20 MG CAPSULE 60 MG PO (11:44)
[2022-02-01] MEDS: Loratadine 10 MG TABLET PO (11:44)
[2022-02-01] MEDS: Ascorbic Acid 250 MG TABLET PO (11:44)
[2022-02-01] MEDS: 0.9 % Sodium Chloride Flush 3 ML SYRINGE IVFLUSH ×3 (11:52→22:22)
--- NOTE | 2022-02-01 12:29 | HO.POSTANES ---
Post Anesthesia Evaluation Post Anesthesia Evaluation Vital Signs: Vital Signs Temp Pulse Resp BP Pulse Ox O2 Del Method O2 Flow Rate 02/01/22 12:04 98.1 F 95 19 107/56 L 02/01/22 11:39 98.1 F 99 18 106/58 L 93 Room Air 02/01/22 08:59 89 18 93/47 L 94 02/01/22 08:59 89 18 93/47 L 94 02/01/22 07:37 93/47 L 02/01/22 07:28 98.0 F 89 18 89/56 L 94 Nasal Cannula 2 02/01/22 05:11 94 18 118/58 L 96 02/01/22 05:06 99.6 F 02/01/22 03:00 92 16 127/63 94 02/01/22 01:00 94 16 108/60 95 02/01/22 03:38 100.7 F H 92 18 127/63 93 Nasal Cannula 2 Anesthesia: General LMA Mental Status: Awake Pain Control: Satisfactory Nausea/Vomiting: None Hydration: Adequate Anesthesia-Related Issues: No Anes. Related Issues
--- NOTE | 2022-02-01 13:19 | HO.PM.IMPN ---
Subjective Subjective Date of Service: 02/01/22 Interval History: cc: severe pain interval history:continued pain, anxiety Cardiovascular Cardiovascular: Reports no additional cardiovascular complaints Respiratory Respiratory: Reports no additional respiratory complaints Physical Exam Vital Signs: Vital Signs: Last Vital Signs Temp 98.4 F 02/01/22 12:32 Pulse 96 02/01/22 12:32 Resp 20 02/01/22 12:32 BP 129/64 02/01/22 12:32 Pulse Ox 93 02/01/22 11:39 O2 Del Method 02/01/22 11:39 O2 Flow Rate 2 02/01/22 07:28 FiO2 26 01/28/22 02:44 Oxygen Flow Rate 2 01/31/22 12:10 BMI result Body Mass Index 35.1 Const: General: cooperative, healthy appearing and no acute distress Resp: Effort & Inspection: normal respiratory effort and able to speak in complete sentences Cardio: Rate: regular rate Peripheral pulses: Peripheral pulses 2+ throughout GI: Palpation (GI): Soft to palpation Skin: General skin exam: no rashes or lesions noted Extrem: Other: left ankle splint intact, she has good motion and cap refill right knee incision clean dry and intact, able to move ankle and toes, NVI. Objective Data Active Medications Acetaminophen (Acetaminophen 325 Mg Tablet) 650 mg PO Q6H PRN PRN Reason: Pain, Mild (Pain Scale 1-3) Last Admin: 02/01/22 03:45 Dose: 650 mg Documented By: DEREK Acetaminophen (Acetaminophen 325 Mg Tablet) 975 mg PO Q6H PRN PRN Reason: pain Albuterol Sulfate (Albuterol Sulfate 90 Mcg 8 Gm Inhaler) 2 puff INHALE Q6H PRN PRN Reason: shortness of breath or wheezing Ascorbic Acid (Ascorbic Acid 250 Mg Tablet) 250 mg PO DAILY [facility] Last Admin: 02/01/22 11:44 Dose: 250 mg Documented By: MANAS Bupropion HCl (Bupropion Hcl 75 Mg Tablet) 75 mg PO BEDTIME [facility] Last Admin: 01/31/22 21:01 Dose: 75 mg Documented By: DEREK Calcium Carbonate (Calcium Carbonate 500 Mg Tablet) 500 mg PO DAILY [facility] Last Admin: 02/01/22 11:43 Dose: 500 mg Documented By: MANAS Calcium Polycarbophil (Calcium Polycarbophil Tablet) 1 tab PO BID [facility] Last Admin: 02/01/22 11:43 Dose: 1 tab Documented By: MANAS Clonazepam (Clonazepam 0.5 Mg Tablet) 0.5 mg PO BID PRN PRN Reason: Anxiety Last Admin: 01/28/22 13:38 Dose: 0.5 mg Documented By: SWETHA Docusate Sodium (Docusate Sodium 100 Mg Capsule) 100 mg PO DAILY [facility] Last Admin: 02/01/22 11:43 Dose: 100 mg Documented By: MANAS Enoxaparin Sodium (Enoxaparin Sodium 40 Mg/0.4 Ml Syringe) 40 mg SUBCUT Q24H [facility] Last Admin: 01/31/22 15:52 Dose: 40 mg Documented By: HAN Fluoxetine HCl (Fluoxetine Hcl 20 Mg Capsule) 60 mg PO DAILY [facility] Last Admin: 02/01/22 11:44 Dose: 60 mg Documented By: MANAS Gabapentin (Gabapentin 400 Mg Capsule) 800 mg PO TID [facility] Last Admin: 02/01/22 11:43 Dose: 800 mg Documented By: MANAS Morphine Sulfate () 100 mg in 100 mls @ 0 mls/hr IVCONT .Q0M [facility]; Protocol Last Admin: 02/01/22 08:59 Dose: 2 mg/hr, 2 mls/hr Documented By: MANAS Levothyroxine Sodium (Levothyroxine Sodium 112 Mcg Tablet) 112 mcg PO DAILY@0600 [facility] Last Admin: 02/01/22 05:14 Dose: 112 mcg Documented By: DEREK Levothyroxine Sodium (Levothyroxine Sodium 25 Mcg Tablet) 25 mcg PO DAILY@0600 [facility] Last Admin: 02/01/22 05:14 Dose: 25 mcg Documented By: DEREK Loratadine (Loratadine 10 Mg Tablet) 10 mg PO DAILY [facility] Last Admin: 02/01/22 11:44 Dose: 10 mg Documented By: MANAS Melatonin (Melatonin 3 Mg Tablet) 6 mg PO BEDTIME [facility] Last Admin: 01/31/22 22:34 Dose: 6 mg Documented By: DEREK Comments: per pt request Metronidazole (Metronidazole 0.75 % Gel 45 Gm Tube) 1 appl TOPICAL BEDTIME [facility] Last Admin: 01/31/22 22:35 Dose: 1 appl Documented By: DEREK Multivitamins/Vitamin C (Multivitamin Tablet) 1 tab PO DAILY [facility] Last Admin: 02/01/22 11:44 Dose: 1 tab Documented By: MANAS Naloxone HCl (Naloxone Hcl 0.4 Mg/Ml Vial) 0.2 mg IVPUSH Q2M PRN PRN Reason: Excessive sedation or RR < 8 Omeprazole (Omeprazole 40 Mg Capsule.Dr) 40 mg PO DAILY@0630 [facility] Last Admin: 02/01/22 05:15 Dose: 40 mg Documented By: DEREK Ondansetron HCl (Ondansetron Hcl 4 Mg/2 Ml Vial) 4 mg IVPUSH Q8H PRN PRN Reason: Nausea and Vomiting Last Admin: 01/31/22 05:31 Dose: 4 mg Documented By: BRAVO Oxycodone HCl (Oxycodone Hcl Immed Release 5 Mg Tablet) 10 mg PO Q4H PRN PRN Reason: Pain, Moderate (Pain Scale 4-6 Last Admin: 01/31/22 19:46 Dose: 10 mg Documented By: DEREK Pharmacy Consult (Consult Rx Perform Med Rec) 1 each MISCELLANE ONCE PRN PRN Reason: Consult order Polyethylene Glycol (Polyethylene Glycol 3350 17 Gm Powd.Pack) 17 gm PO DAILY [facility] Last Admin: 02/01/22 11:52 Dose: Not Given Documented By: MANAS Non-Admin Reason: pt refused Quetiapine Fumarate (Quetiapine Fumarate 300 Mg Tablet) 600 mg PO BEDTIME [facility] Last Admin: 01/31/22 22:34 Dose: 600 mg Documented By: DEREK Comments: per pt request Sodium Chloride (0.9 % Sodium Chloride Flush 3 Ml Syringe) [facility] Last Admin: 02/01/22 11:52 Dose: 3 ml Documented By: MANAS Valacyclovir HCl (Valacyclovir Hcl 1,000 Mg Tablet) 1,000 mg PO DAILY [facility] Last Admin: 02/01/22 11:43 Dose: 1,000 mg Documented By: MANAS Vitamin D (Cholecalciferol (Vitamin D3) 25 Mcg Tablet) 25 mcg PO DAILY [facility] Last Admin: 02/01/22 11:43 Dose: 25 mcg Documented By: MANAS Labs CBC & Chem 7: 02/01/22 09:25 02/01/22 09:25 Labs: Laboratory Results - last 24 hr 02/01/22 02/01/22 02/01/22 09:25 09:25 10:17 MCV 95.1 MCH 31.4 MCHC 33.0 RDW 13.1 Plt Count 142 L MPV 9.8 Absolute Nucleated RBC 0.000 Nucleated RBC % (auto) 0.0 Anion Gap 10 L Estim Creat Clear Calc 125.0 Estimated GFR > 60 Fasting Glucose 102 H Calcium 7.8 L Blood Type A Negative Antibody Screen NEGATIVE Crossmatch See Detail Assessment and Plan (1) Closed trimalleolar fracture: Status: Acute (2) Femoral distal fracture: Status: Acute Plan hospital d#5 61yo?F with hypothyroidism, chronic leukopenia, MARLENY not on CPAP, depression, and bilateral knee replacements who fell and sustained a left trimalleolar intra-articular fracture with tibiotalar dislocation [reduced] and a right transverse periprosthetic fracture of the distal femur. # ankle fracture # knee fracture - operative fixation 01/30/22, on morphine [employer] for pain contrl # acute blood loss anemia due to fracture hgb 7, will transfuse 2 units prbc low grade fever 100.7 likely reactive, no evidence of sepsis, montior off abx for now Chronic issues # hypothyroidism: continue LT4 # mood disorder: continue bupropion, quetiapine, fluoxetine # chronic back pain: continue gabapentin # VTE ppx LMWH postoperatively x28d reason for continued hospitalization: severe anemia needing tranfusion and montioring Quality Stroke Does the patient have a stroke diagnosis?: No VTE Prior VTE?: No VTE Risk Level:: Medical - moderate - high VTE Device Contraindication: N/A - Device Ordered VTE Drug Contraindication: N/A - Med Ordered
--- NOTE | 2022-02-01 15:10 | P.PNOP_ITS ---
Subjective Subjective Date of Service: 02/01/22 Interval history: POD 2 s/p ORIF left ankle ORIF right distal femur with liner exchange rt tka no overnight events, she states her pain is better and has no concerns denies cp, palpitations, sob receiving transfusion Physical Exam Vital Signs: Vital Signs: Last Vital Signs Temp 98.4 F 02/01/22 12:32 Pulse 96 02/01/22 12:32 Resp 20 02/01/22 12:32 BP 129/64 02/01/22 12:32 Pulse Ox 93 02/01/22 12:00 O2 Del Method 02/01/22 12:00 O2 Flow Rate 2 02/01/22 07:28 FiO2 26 01/28/22 02:44 Oxygen Flow Rate 2 01/31/22 12:10 BMI result Body Mass Index 35.1 Const: General: cooperative, healthy appearing and no acute distress Resp: Effort & Inspection: normal respiratory effort and able to speak in complete sentences Cardio: Rate: regular rate Peripheral pulses: Peripheral pulses 2+ throughout GI: Palpation (GI): Soft to palpation Skin: General skin exam: no rashes or lesions noted Extrem: Other: left ankle splint intact, she has good motion and cap refill right knee incision clean dry and intact, able to move ankle and toes, NVI. Procedures Date of Service Date of Service: 02/01/22 Progress Note: A&P Assessment and plan (1) Femoral distal fracture: Status: Acute (2) Closed trimalleolar fracture: Status: Acute Plan * Continue pain mgmnt * Begin lovenox for dvt ppx * begin PT / OT : * ----Left ankle NWB, elevate omn 3 pillows above heart level * ----Right femur --ok to use brace for comfort and to help elevate the leg. 50% wbat with brace intact, ok to work on ROM of the knee. * Dispo planning-Pending PT eval, pain mgmnt Time Spent With Patient Time: Total time spent is greater than 50% in coordination of care (as documented) at patient's floor/unit and/or counseling patient: Quality Stroke Does the patient have a stroke diagnosis?: No VTE Prior VTE?: No VTE Risk Level:: Medical - moderate - high VTE Device Contraindication: N/A - Device Ordered VTE Drug Contraindication: N/A - Med Ordered
[2022-02-01 16:28] LABS: Lactic Acid 0.7 mmol/L (0.5-2.0)
[2022-02-01] MEDS: cefTRIAXone sodium 1 GM in 0.9 % Sodium Chloride 50 ML IV (17:29)
[2022-02-01] MEDS: Enoxaparin Sodium 40 MG/0.4 ML SYRINGE SUBCUT (17:30)
[2022-02-01] MEDS: Melatonin 3 MG TABLET 6 MG PO (22:04)
[2022-02-01] MEDS: buPROPion HCL 75 MG TABLET PO (22:04)
[2022-02-01] MEDS: QUEtiapine Fumarate 300 MG TABLET 600 MG PO (22:05)
[2022-02-01] MEDS: metroNIDAZOLE 0.75 % Gel 45 GM TUBE 1 APPL TOPICAL (22:06)
--- NOTE | 2022-02-01 22:56 | PC.NURSE ---
Patient due for 600mg PO seroquel and 6mg PO melatonin - patient states she only wants half of each. Dr. Correia called and is okay with pt only taking half of each. This RN administered 300mg PO seroquel and 3mg PO melatonin - this was noted in the MAR comments as well.
[2022-02-01 22:59] LABS: Appearance Urine HAZY; Color Urine YELLOW; Glucose Urine UA NEG (NEG); Leukocyte Esterase Urine NEG (NEG); Nitrite Urine NEG (NEG); Specific Gravity - Urine 1.015 (1.005-1.025); Urine Blood 2+ (NEG); Urine Ketones NEG (NEG); Urine Protein TRACE MG/DL (NEG-TRACE)
--- NOTE | 2022-02-01 22:59 | PC.NURSE ---
Patient needs to have a unit of RBC's given. At this time she has a temp of 101.2, Dr. Correia notified and notes to hold off on administering the blood until temperature comes down.
[2022-02-01 23:09] LABS: Bacteria Urine 2+ /LPF; Mucus Urine 2+ /LPF; Squamous Epithelial Cell Urine 2+ /LPF
[2022-02-02] VITALS (16 sets, daily range): BP systolic 87–128; BP diastolic 46–66; PULSE 80–97; RESP 14–20; TEMP 35.8–39.1; O2SAT 85–95
[2022-02-02] MEDS: Levothyroxine Sodium 25 MCG TABLET PO (05:36)
[2022-02-02] MEDS: Omeprazole 40 MG CAPSULE.DR PO (05:36)
[2022-02-02] MEDS: Levothyroxine Sodium 112 MCG TABLET PO (05:36)
[2022-02-02 07:34] LABS: Hematocrit 23.5 % (37.0-47.0); Mean Corpuscular Hemoglobin 32.5 pg (27.0-33.0); Mean Corpuscular Volume 95.5 fL (80.0-98.0); Platelet Count 166 X10*3/uL (160-400); Red Blood Count 2.46 X10*6/uL (4.20-5.50); Red Cell Distribution Width 13.1 % (11.0-16.0); White Blood Count 4.6 X10*3/uL (4.8-10.8)
[2022-02-02 07:38] LABS: Anion Gap 10 (12-20); Blood Urea Nitrogen 6 mg/dL (9-16); Calcium 7.7 mg/dL (8.4-10.2); Carbon Dioxide 29 mmol/L (22-29); Chloride 100 mmol/L (96-108); Estimated Glomerular Filt Rate > 60; Glucose Fasting 95 mg/dL (60-99); Sodium 136 mmol/L (135-145)
--- NOTE | 2022-02-02 08:20 | P.PNOP_ITS ---
Subjective Subjective Date of Service: 02/02/22 Interval history: POD3 status post left ankle ORIF and right distal femur IM nail. Patient is resting in bed comfortably. No overnight events. No additional complaints. Denies any chest pain shortness of breath or abdominal pain Physical Exam Vital Signs: Vital Signs: Last Vital Signs Temp 98.0 F 02/02/22 08:00 Pulse 83 02/02/22 08:00 Resp 20 02/02/22 08:00 BP 87/49 L 02/02/22 08:00 Pulse Ox 95 02/02/22 07:42 O2 Del Method 02/02/22 06:41 O2 Flow Rate 2 02/01/22 07:28 FiO2 98 02/02/22 06:41 Oxygen Flow Rate 3 02/02/22 06:41 BMI result Body Mass Index 35.1 Const: General: cooperative, healthy appearing and no acute distress Resp: Effort & Inspection: normal respiratory effort and able to speak in complete sentences Cardio: Rate: regular rate Peripheral pulses: Peripheral pulses 2+ thr oughout GI: Palpation (GI): Soft to palpation Skin: Lesions: no lesions Rashes: no rashes Extrem: Other: Left ankle splint is clean dry and intact. Able to move all digits. Sensation reportedly intact. Right distal femur Aquacel is clean dry and intact. Patient is able to move all digits. Sensation reportedly intact. Procedures Date of Service Date of Service: 02/02/22 Progress Note: A&P Assessment and plan (1) Closed trimalleolar fracture: Status: Acute Assessment and Plan: Continue pain mgmnt Continue Lovenox for dvt ppx Continue PT for left ankle ORIF nonweightbearing x6 weeks, right distal femur fracture TTWB Dispo planning-PT, pain mgmnt, rehab placement (2) Femoral distal fracture: Status: Acute Time Spent With Patient Time: Total time spent is greater than 50% in coordination of care (as documented) at patient's floor/unit and/or counseling patient: Quality Stroke Does the patient have a stroke diagnosis?: No VTE Prior VTE?: No VTE Risk Level:: Medical - moderate - high VTE Device Contraindication: N/A - Device Ordered VTE Drug Contraindication: N/A - Med Ordered
[2022-02-02] MEDS: 0.9 % Sodium Chloride Flush 3 ML SYRINGE IVFLUSH ×3 (09:38→20:02)
[2022-02-02] MEDS: valACYclovir HCL 1,000 MG TABLET 1000 MG PO (09:42)
[2022-02-02] MEDS: calcium polycarbophiL TABLET 1 TAB PO ×2 (09:42→19:59)
[2022-02-02] MEDS: Loratadine 10 MG TABLET PO (09:42)
[2022-02-02] MEDS: FLUoxetine HCl 20 MG CAPSULE 60 MG PO (09:42)
[2022-02-02] MEDS: Gabapentin 400 MG CAPSULE 800 MG PO ×3 (09:43→19:59)
[2022-02-02] MEDS: Ascorbic Acid 250 MG TABLET PO (09:43)
[2022-02-02] MEDS: Cholecalciferol (Vitamin D3) 25 MCG TABLET PO (09:43)
[2022-02-02] MEDS: Docusate Sodium 100 MG CAPSULE PO (09:43)
[2022-02-02] MEDS: Multivitamin TABLET 1 TAB PO (09:43)
[2022-02-02] MEDS: Potassium Chloride ER 20 MEQ TAB.ER.PRT 40 MEQ PO (09:53)
--- NOTE | 2022-02-02 11:48 | MHC.CM.PN ---
Per ROUNDS discussion, Patient Septic from PNA and not yet medically cleared for dc ; STR is the goal and CM will follow.
--- NOTE | 2022-02-02 12:01 | P.PNIM_ITS ---
Subjective Subjective Date of Service: 02/02/22 Interval History: cc: severe pain interval history:continued pain, anxiety, depression Cardiovascular Cardiovascular: Reports no additional cardiovascular complaints Respiratory Respiratory: Reports no additional respiratory complaints Physical Exam Vital Signs: Vital Signs: Last Vital Signs Temp 98.0 F 02/02/22 11:54 Pulse 82 02/02/22 11:54 Resp 18 02/02/22 11:54 BP 96/51 L 02/02/22 11:54 Pulse Ox 93 02/02/22 11:54 O2 Del Method 02/02/22 11:54 O2 Flow Rate 2 02/01/22 07:28 FiO2 98 02/02/22 06:41 Oxygen Flow Rate 3 02/02/22 06:41 BMI result Body Mass Index 35.1 General: AO X 3, anxious, ill appearing Resp: Crackles right base, no accessory muscles used CVS: S1,S2,RRR GI: soft, non tender, non distended Neuro: motor grossly intact, alert Psych: appropriate affect, appropriate insight Objective Data Active Medications Acetaminophen (Acetaminophen 325 Mg Tablet) 650 mg PO Q6H PRN PRN Reason: Pain, Mild (Pain Scale 1-3) Last Admin: 02/01/22 23:36 Dose: 650 mg Documented By: DEREK Acetaminophen (Acetaminophen 325 Mg Tablet) 975 mg PO Q6H PRN PRN Reason: pain Albuterol Sulfate (Albuterol Sulfate 90 Mcg 8 Gm Inhaler) 2 puff INHALE Q6H PRN PRN Reason: shortness of breath or wheezing Ascorbic Acid (Ascorbic Acid 250 Mg Tablet) 250 mg PO DAILY [facility] Last Admin: 02/02/22 09:43 Dose: 250 mg Documented By: MARTA Bupropion HCl (Bupropion Hcl 75 Mg Tablet) 75 mg PO BEDTIME [facility] Last Admin: 02/01/22 22:04 Dose: 75 mg Documented By: DEREK Calcium Carbonate (Calcium Carbonate 500 Mg Tablet) 500 mg PO DAILY [facility] Last Admin: 02/02/22 09:42 Dose: 500 mg Documented By: MARTA Calcium Polycarbophil (Calcium Polycarbophil Tablet) 1 tab PO BID [facility] Last Admin: 02/02/22 09:42 Dose: 1 tab Documented By: MARTA Docusate Sodium (Docusate Sodium 100 Mg Capsule) 100 mg PO DAILY [facility] Last Admin: 02/02/22 09:43 Dose: 100 mg Documented By: MARTA Enoxaparin Sodium (Enoxaparin Sodium 40 Mg/0.4 Ml Syringe) 40 mg SUBCUT Q24H [facility] Last Admin: 02/01/22 17:30 Dose: 40 mg Documented By: MANAS Fluoxetine HCl (Fluoxetine Hcl 20 Mg Capsule) 60 mg PO DAILY [facility] Last Admin: 02/02/22 09:42 Dose: 60 mg Documented By: MARTA Gabapentin (Gabapentin 400 Mg Capsule) 800 mg PO TID [facility] Last Admin: 02/02/22 09:43 Dose: 800 mg Documented By: MARTA Morphine Sulfate () 100 mg in 100 mls @ 0 mls/hr IVCONT .Q0M [facility]; Protocol Last Infusion: 02/01/22 23:39 Dose: 2 mg/hr, 2 mls/hr Documented By: DEREK Ceftriaxone Sodium 1 gm/ (Sodium Chloride) 50 mls @ 100 mls/hr IV Q24H [facility] Last Infusion: 02/01/22 18:33 Dose: 0 mls/hr Documented By: MANAS Levothyroxine Sodium (Levothyroxine Sodium 112 Mcg Tablet) 112 mcg PO DAILY@0600 [facility] Last Admin: 02/02/22 05:36 Dose: 112 mcg Documented By: CLIFTON Levothyroxine Sodium (Levothyroxine Sodium 25 Mcg Tablet) 25 mcg PO DAILY@0600 [facility] Last Admin: 02/02/22 05:36 Dose: 25 mcg Documented By: CLIFTON Loratadine (Loratadine 10 Mg Tablet) 10 mg PO DAILY [facility] Last Admin: 02/02/22 09:42 Dose: 10 mg Documented By: MARTA Melatonin (Melatonin 3 Mg Tablet) 6 mg PO BEDTIME [facility] Last Admin: 02/01/22 22:04 Dose: 3 mg Documented By: DEREK Comments: pt only wants 3mg, Dr. Correia aware and ok to only give 1/2 of this dose Metronidazole (Metronidazole 0.75 % Gel 45 Gm Tube) 1 appl TOPICAL BEDTIME [facility] Last Admin: 02/01/22 22:06 Dose: 1 appl Documented By: DEREK Multivitamins/Vitamin C (Multivitamin Tablet) 1 tab PO DAILY [facility] Last Admin: 02/02/22 09:43 Dose: 1 tab Documented By: MARTA Naloxone HCl (Naloxone Hcl 0.4 Mg/Ml Vial) 0.2 mg IVPUSH Q2M PRN PRN Reason: Excessive sedation or RR < 8 Omeprazole (Omeprazole 40 Mg Anil.) 40 mg PO DAILY@0630 [facility] Last Admin: 02/02/22 05:36 Dose: 40 mg Documented By: CLIFTON Ondansetron HCl (Ondansetron Hcl 4 Mg/2 Ml Vial) 4 mg IVPUSH Q8H PRN PRN Reason: Nausea and Vomiting Last Admin: 01/31/22 05:31 Dose: 4 mg Documented By: BRAVO Oxycodone HCl (Oxycodone Hcl Immed Release 5 Mg Tablet) 10 mg PO Q4H PRN PRN Reason: Pain, Moderate (Pain Scale 4-6 Last Admin: 01/31/22 19:46 Dose: 10 mg Documented By: DEREK Pharmacy Consult (Consult Rx Perform Med Rec) 1 each MISCELLANE ONCE PRN PRN Reason: Consult order Polyethylene Glycol (Polyethylene Glycol 3350 17 Gm Powd.Pack) 17 gm PO DAILY [facility] Last Admin: 02/02/22 09:43 Dose: Not Given Documented By: MARTA Non-Admin Reason: Patient Refused Quetiapine Fumarate (Quetiapine Fumarate 300 Mg Tablet) 600 mg PO BEDTIME [facility] Last Admin: 02/01/22 22:05 Dose: 300 mg Documented By: DEREK Comments: pt requesting only have the dose as the full 600mg makes her feel too drowsy - Dr. Correia notified and is aware and ok that only half this dose is being given Sodium Chloride (0.9 % Sodium Chloride Flush 3 Ml Syringe) [facility] Last Admin: 02/02/22 09:38 Dose: 3 ml Documented By: MARTA Valacyclovir HCl (Valacyclovir Hcl 1,000 Mg Tablet) 1,000 mg PO DAILY [facility] Last Admin: 02/02/22 09:42 Dose: 1,000 mg Documented By: MARTA Vitamin D (Cholecalciferol (Vitamin D3) 25 Mcg Tablet) 25 mcg PO DAILY [facility] Last Admin: 02/02/22 09:43 Dose: 25 mcg Documented By: MARTA Labs CBC & Chem 7: 02/02/22 06:08 02/02/22 06:08 Labs: Laboratory Results - last 24 hr 02/01/22 02/01/22 02/01/22 10:17 15:50 22:21 MCV MCH MCHC RDW Plt Count MPV Absolute Nucleated RBC Nucleated RBC % (auto) Anion Gap Estim Creat Clear Calc Estimated GFR Fasting Glucose Lactic Acid 0.7 Calcium Urine Color YELLOW Urine Appearance HAZY Urine pH 6.0 Ur Specific [place] 1.015 Urine Protein TRACE Urine Glucose (UA) NEG Urine Ketones NEG Urine Blood 2+ H Urine Nitrite NEG Ur Leukocyte Esterase NEG Urine RBC 1-4 Urine WBC 1-4 Ur Squamous Epith Cells 2+ Urine Bacteria 2+ Urine Mucus 2+ Blood Type A Negative Antibody Screen NEGATIVE Crossmatch See Detail 02/02/22 02/02/22 06:08 06:08 MCV 95.5 MCH 32.5 MCHC 34.0 RDW 13.1 Plt Count 166 MPV 10.0 Absolute Nucleated RBC 0.000 Nucleated RBC % (auto) 0.0 Anion Gap 10 L Estim Creat Clear Calc 140.0 Estimated GFR > 60 Fasting Glucose 95 Lactic Acid Calcium 7.7 L Urine Color Urine Appearance Urine pH Ur Specific [place] Urine Protein Urine Glucose (UA) Urine Ketones Urine Blood Urine Nitrite Ur Leukocyte Esterase Urine RBC Urine WBC Ur Squamous Epith Cells Urine Bacteria Urine Mucus Blood Type Antibody Screen Crossmatch Assessment and Plan (1) Closed trimalleolar fracture: Status: Acute (2) Femoral distal fracture: Status: Acute Plan hospital d#6 61yo?F with hypothyroidism, chronic leukopenia, MARLENY not on CPAP, depression, and bilateral knee replacements who fell and sustained a left trimalleolar intra- articular fracture with tibiotalar dislocation [reduced] and a right transverse periprosthetic fracture of the distal femur. now complicated by sepsis and acute hypoxic respiratory failure as well as blood loss anemia sepsis 02/01/22, not severe, hypotension due to anemia and opiates possible right sided pneumonia continue rocephin, follow up cultures acute hypoxic respiratory failure due to pneumonia wean o2 as tolerated ankle fracture knee fracture - operative fixation 01/30/22, on morphine [employer] for pain contrl acute blood loss anemia due to fracture hgb improved to 8 after transfusion 02/01/22 depression/anxiety patient requesting psychiatry eval continue buproprion, seroquel, fluexetine hypothyroid synthroid # VTE ppx LMWH postoperatively x28d reason for continued hospitalization: sepsis, hyopxia Quality Stroke Does the patient have a stroke diagnosis?: No VTE Prior VTE?: No VTE Risk Level:: Medical - moderate - high VTE Device Contraindication: N/A - Device Ordered VTE Drug Contraindication: N/A - Med Ordered
[2022-02-02] MEDS: Enoxaparin Sodium 40 MG/0.4 ML SYRINGE SUBCUT (17:20)
[2022-02-02] MEDS: cefTRIAXone sodium 1 GM in 0.9 % Sodium Chloride 50 ML IV (17:21)
--- NOTE | 2022-02-02 17:43 | PM.PSYCN ---
History of Present Illness Date of Service: 02/01/2022 Chief Complaint: right knee and ankle pain after mechanical fall Reason for Consult: medication Requesting physician: Segundo Osborn Sources of Information: patient interviewed, chart reviewed and crisis/core team assessment reviewed HPI Narrative: Denita is a 61 y.o. Female who carries a dx of Depression, Anxiety, and r/o of BPD. She presented [place] [facility] [place] 01/28/[place]22 due to fall and injury to her left ankle and right knee.? She did not hit her head, no LOC. In the ED, pt was found to have a left trimalleolar intra-articular fracture with tibiotalar dislocation [reduced] and a right transverse periprosthetic fracture of the distal femur. The ankle was reduced and splinted under ketamine sedation. Orthopedics was consulted and she was operated on 01/31/22. She has co-morbid hypothyroidism, chronic leukopenia, MARLENY not on CPAP, and bilateral knee replacements. Pt remains on IMC due to complication of sepsis on 02/01/22 and acute hypoxic respiratory failure as well as blood loss anemia. Psych consult requested on pt?s behalf for sx of depression and anxiety. Pt is on seroquel 600 mg QHS, bupropion 75 mg Bedtime, prozac 60 mg daily, clonazepam 0.5 mg BID PRN (needed to be renewed), and gabapentin 800 mg TID (for fibro). I evaluated the pt this evening and upon interview she reports she her depression is ?very bad? and that ?it got a little bit better? today but ?I can?t do anything, if I only had one leg to deal with?? trails off, tearful. Pt complains of situational stress related to her sustained injuries, feels ?frustrated.? Mentions feeling lonely in the hospital, ?I need someone to talk to.? She also complains that she is in ?a pretty good amount of pain.? Pt asks for melatonin to be changed to PRN, as she wants to be able to decline this or take it later in the evening. Says seroquel 600 mg helps her to sleep but she feels ?drugged up.? She is amenable to breaking up the dose in order to target anxiety and agitation in the day. She denies SI/ SIB. Identifies protective factors as her son and says ?I cant be depressed around him, he doesnt want to hear me talk about it.? She also has a therapist she talks to weekly.? Past Psychiatric History: -Pt has OP therapy and talks to therapist weekly. Her psych meds are managed by her PCP, Dr. Jules James. Medical Evaluation Reviewed: Yes [facility] Medical History Anemia Arthritis Depression Hypothyroid IBS (irritable bowel syndrome) Leukopenia Migraines Sleep apnea Surgical History H/O hernia repair H/O knee surgery H/O tubal ligation H/O: hysterectomy History of back surgery History of bilateral knee replacement History of bladder surgery History of delivery History of endometrial ablation History of esophagogastroduodenoscopy (EGD) History of surgery Hx of colonoscopy Hx of foot surgery Diagnostics Vital Signs (24Hr): Vital Signs - 24 hr 02/01/22 20:03 02/01/22 22:24 02/02/22 00:00 Temperature 98.8 F 101.2 F H 98.1 F Pulse Rate 87 88 Respiratory Rate 18 16 Blood Pressure 119/65 116/58 L Pulse Oximetry 98 85 L Oxygen Delivery Method Room Air Room Air Oxygen Flow Rate Fraction of Inspired Oxygen 02/02/22 03:11 02/02/22 03:28 02/02/22 04:56 Temperature 98.8 F 98.8 F 96.5 F L Pulse Rate 85 83 80 Respiratory Rate 18 20 20 Blood Pressure 96/48 L 98/48 L 90/46 L Pulse Oximetry Oxygen Delivery Method Oxygen Flow Rate Fraction of Inspired Oxygen 02/02/22 05:16 02/02/22 06:41 02/02/22 07:42 Temperature 96.5 F L Pulse Rate 80 Respiratory Rate 20 14 Blood Pressure 90/46 L 87/49 L Pulse Oximetry 95 Oxygen Delivery Method Nasal Cannula Oxygen Flow Rate Fraction of Inspired Oxygen 98 02/02/22 09:42 02/02/22 11:00 02/02/22 13:00 Temperature Pulse Rate 83 82 Respiratory Rate 16 18 18 Blood Pressure 90/62 96/51 L 96/51 L Pulse Oximetry 94 93 Oxygen Delivery Method Oxygen Flow Rate Fraction of Inspired Oxygen 02/02/22 14:45 02/02/22 08:00 02/02/22 10:36 Temperature 98.0 F Pulse Rate 92 83 Respiratory Rate 20 Blood Pressure 94/58 L 87/49 L 90/62 Pulse Oximetry 93 Oxygen Delivery Method Oxygen Flow Rate Fraction of Inspired Oxygen 02/02/22 11:54 02/02/22 12:00 02/02/22 15:13 Temperature 98.0 F 100.2 F Pulse Rate 82 97 Respiratory Rate 18 18 Blood Pressure 96/51 L 128/66 Pulse Oximetry 93 93 95 Oxygen Delivery Method Room Air Room Air Nasal Cannula Oxygen Flow Rate 2 Fraction of Inspired Oxygen BMI result Body Mass Index 35.1 Labs Results: 02/02/22 06:08 02/02/22 06:08 Labs: Laboratory Results - last 48 hr 02/01/22 02/01/22 02/01/22 09:25 09:25 10:17 WBC 4.1 L RBC 2.23 L Hgb 7.0 L* Hct 21.2 L MCV 95.1 MCH 31.4 MCHC 33.0 RDW 13.1 Plt Count 142 L MPV 9.8 Absolute Nucleated RBC 0.000 Nucleated RBC % (auto) 0.0 Sodium 135 Potassium 3.5 Chloride 98 Carbon Dioxide 31 H Anion Gap 10 L BUN 6 L Creatinine 0.56 Estim Creat Clear Calc 125.0 Estimated GFR > 60 Fasting Glucose 102 H Lactic Acid Calcium 7.8 L Urine Color Urine Appearance Urine pH Ur Specific [place] Urine Protein Urine Glucose (UA) Urine Ketones Urine Blood Urine Nitrite Ur Leukocyte Esterase Urine RBC Urine WBC Ur Squamous Epith Cells Urine Bacteria Urine Mucus Blood Type A Negative Antibody Screen NEGATIVE Crossmatch See Detail 02/01/22 02/01/22 02/02/22 15:50 22:21 06:08 WBC 4.6 L RBC 2.46 L Hgb 8.0 L Hct 23.5 L MCV 95.5 MCH 32.5 MCHC 34.0 RDW 13.1 Plt Count 166 MPV 10.0 Absolute Nucleated RBC 0.000 Nucleated RBC % (auto) 0.0 Sodium Potassium Chloride Carbon Dioxide Anion Gap BUN Creatinine Estim Creat Clear Calc Estimated GFR Fasting Glucose Lactic Acid 0.7 Calcium Urine Color YELLOW Urine Appearance HAZY Urine pH 6.0 Ur Specific [place] 1.015 Urine Protein TRACE Urine Glucose (UA) NEG Urine Ketones NEG Urine Blood 2+ H Urine Nitrite NEG Ur Leukocyte Esterase NEG Urine RBC 1-4 Urine WBC 1-4 Ur Squamous Epith Cells 2+ Urine Bacteria 2+ Urine Mucus 2+ Blood Type Antibody Screen Crossmatch 02/02/22 06:08 WBC RBC Hgb Hct MCV MCH MCHC RDW Plt Count MPV Absolute Nucleated RBC Nucleated RBC % (auto) Sodium 136 Potassium 3.0 L Chloride 100 Carbon Dioxide 29 Anion Gap 10 L BUN 6 L Creatinine 0.50 Estim Creat Clear Calc 140.0 Estimated GFR > 60 Fasting Glucose 95 Lactic Acid Calcium 7.7 L Urine Color Urine Appearance Urine pH Ur Specific [place] Urine Protein Urine Glucose (UA) Urine Ketones Urine Blood Urine Nitrite Ur Leukocyte Esterase Urine RBC Urine WBC Ur Squamous Epith Cells Urine Bacteria Urine Mucus Blood Type Antibody Screen Crossmatch Imaging Radiology Impressions: ITS Impressions Ankle X-Ray 01/28/22 01:34 IMPRESSION: Left ankle: *Trimalleolar intra-articular fracture with tibiotalar dislocation. Right knee: *Transverse, posteriorly angulated periprosthetic fracture of the distal femoral metadiaphysis. *Status post total right knee arthroplasty. Right hip: *Suboptimal visualization of right hip. If clinical concern is present regarding possible acute injury, consider repeat imaging or CT as clinically indicated. *No acute abnormalities identified. Marked right hip osteoarthritis. Hip X-Ray 01/28/22 01:34 IMPRESSION: Left ankle: *Trimalleolar intra-articular fracture with tibiotalar dislocation. Right knee: *Transverse, posteriorly angulated periprosthetic fracture of the distal femoral metadiaphysis. *Status post total right knee arthroplasty. Right hip: *Suboptimal visualization of right hip. If clinical concern is present regarding possible acute injury, consider repeat imaging or CT as clinically indicated. *No acute abnormalities identified. Marked right hip osteoarthritis. Knee X-Ray 01/28/22 01:34 IMPRESSION: Left ankle: *Trimalleolar intra-articular fracture with tibiotalar dislocation. Right knee: *Transverse, posteriorly angulated periprosthetic fracture of the distal femoral metadiaphysis. *Status post total right knee arthroplasty. Right hip: *Suboptimal visualization of right hip. If clinical concern is present regarding possible acute injury, consider repeat imaging or CT as clinically indicated. *No acute abnormalities identified. Marked right hip osteoarthritis. Ankle X-Ray 01/28/22 02:50 IMPRESSION: *Trimalleolar fracture with interval reduction in tibiotalar dislocation compared with 01/28/2022 1:08 AM. Guidance Fluoroscopy 01/30/22 14:30 IMPRESSION: As above Guidance Fluoroscopy 01/30/22 17:00 IMPRESSION: As above Chest X-Ray 02/01/22 15:48 IMPRESSION: Low lung volumes. Question right-sided infiltrates. Mental Status Exam Mental Status Exam Narrative: A&O. In hospital attire, overweight, unkempt. Intermittent eye contact, inattentive. No Tics or Tremors. No abnormal involuntary movements. Labile, cooperative, engaged. Non-pressured speech, spontaneous with increased rate and rhythm, normal volume and prosody. No prolonged speech latency or dysarthria. Mood is ?depressed,? affect is anxious, tearful. Denies SI/SIB/HI upon inquiry. Denies A/VH or delusional thought content. Thoughts are distracted. No known cognitive or memory impairment. Insight/ Judgment fair and adequate. Medications Medications Current Medications Acetaminophen (Acetaminophen 325 Mg Tablet) 650 mg PO Q6H PRN PRN Reason: Pain, Mild (Pain Scale 1-3) Last Admin: 02/01/22 23:36 Dose: 650 mg Acetaminophen (Acetaminophen 325 Mg Tablet) 975 mg PO Q6H PRN PRN Reason: pain Albuterol Sulfate (Albuterol Sulfate 90 Mcg 8 Gm Inhaler) 2 puff INHALE Q6H PRN PRN Reason: shortness of breath or wheezing Ascorbic Acid (Ascorbic Acid 250 Mg Tablet) 250 mg PO DAILY [facility] Last Admin: 02/02/22 09:43 Dose: 250 mg Bupropion HCl (Bupropion Hcl 75 Mg Tablet) 75 mg PO BEDTIME [facility] Last Admin: 02/01/22 22:04 Dose: 75 mg Calcium Carbonate (Calcium Carbonate 500 Mg Tablet) 500 mg PO DAILY [facility] Last Admin: 02/02/22 09:42 Dose: 500 mg Calcium Polycarbophil (Calcium Polycarbophil Tablet) 1 tab PO BID [facility] Last Admin: 02/02/22 09:42 Dose: 1 tab Docusate Sodium (Docusate Sodium 100 Mg Capsule) 100 mg PO DAILY [facility] Last Admin: 02/02/22 09:43 Dose: 100 mg Enoxaparin Sodium (Enoxaparin Sodium 40 Mg/0.4 Ml Syringe) 40 mg SUBCUT Q24H [facility] Last Admin: 02/02/22 17:20 Dose: 40 mg Fluoxetine HCl (Fluoxetine Hcl 20 Mg Capsule) 60 mg PO DAILY [facility] Last Admin: 02/02/22 09:42 Dose: 60 mg Gabapentin (Gabapentin 400 Mg Capsule) 800 mg PO TID [facility] Last Admin: 02/02/22 17:20 Dose: 800 mg Ceftriaxone Sodium 1 gm/ (Sodium Chloride) 50 mls @ 100 mls/hr IV Q24H [facility] Last Admin: 02/02/22 17:21 Dose: 100 mls/hr Levothyroxine Sodium (Levothyroxine Sodium 112 Mcg Tablet) 112 mcg PO DAILY@0600 [facility] Last Admin: 02/02/22 05:36 Dose: 112 mcg Levothyroxine Sodium (Levothyroxine Sodium 25 Mcg Tablet) 25 mcg PO DAILY@0600 [facility] Last Admin: 02/02/22 05:36 Dose: 25 mcg Loratadine (Loratadine 10 Mg Tablet) 10 mg PO DAILY [facility] Last Admin: 02/02/22 09:42 Dose: 10 mg Melatonin (Melatonin 3 Mg Tablet) 6 mg PO BEDTIME [facility] Last Admin: 02/01/22 22:04 Dose: 3 mg Metronidazole (Metronidazole 0.75 % Gel 45 Gm Tube) 1 appl TOPICAL BEDTIME [facility] Last Admin: 02/01/22 22:06 Dose: 1 appl Multivitamins/Vitamin C (Multivitamin Tablet) 1 tab PO DAILY [facility] Last Admin: 02/02/22 09:43 Dose: 1 tab Naloxone HCl (Naloxone Hcl 0.4 Mg/Ml Vial) 0.2 mg IVPUSH Q2M PRN PRN Reason: Excessive sedation or RR < 8 Omeprazole (Omeprazole 40 Mg Capsule.) 40 mg PO DAILY@0630 [facility] Last Admin: 02/02/22 05:36 Dose: 40 mg Ondansetron HCl (Ondansetron Hcl 4 Mg/2 Ml Vial) 4 mg IVPUSH Q8H PRN PRN Reason: Nausea and Vomiting Last Admin: 01/31/22 05:31 Dose: 4 mg Oxycodone HCl (Oxycodone Hcl Immed Release 5 Mg Tablet) 10 mg PO Q4H PRN PRN Reason: Pain, Moderate (Pain Scale 4-6 Last Admin: 01/31/22 19:46 Dose: 10 mg Pharmacy Consult (Consult Rx Perform Med Rec) 1 each MISCELLANE ONCE PRN PRN Reason: Consult order Polyethylene Glycol (Polyethylene Glycol 3350 17 Gm Powd.Pack) 17 gm PO DAILY [facility] Last Admin: 02/02/22 09:43 Dose: Not Given Quetiapine Fumarate (Quetiapine Fumarate 300 Mg Tablet) 600 mg PO BEDTIME [facility] Last Admin: 02/01/22 22:05 Dose: 300 mg Sodium Chloride (0.9 % Sodium Chloride Flush 3 Ml Syringe) 3 ml IVFLUSH QSHIFT [facility] Last Admin: 02/02/22 17:20 Dose: 3 ml Valacyclovir HCl (Valacyclovir Hcl 1,000 Mg Tablet) 1,000 mg PO DAILY [facility] Last Admin: 02/02/22 09:42 Dose: 1,000 mg Vitamin D (Cholecalciferol (Vitamin D3) 25 Mcg Tablet) 25 mcg PO DAILY [facility] Last Admin: 02/02/22 09:43 Dose: 25 mcg Allergies Allergies Allergy/AdvReac Type Severity Reaction Status Date / Time amoxicillin [Augmentin] Allergy Intermediate rash Verified 01/28/22 01:04 cat dander Allergy Intermediate NASAL Verified 01/28/22 01:04 SYMPTOMS clavulanic acid [Augmentin] Allergy Intermediate rash Verified 01/28/22 01:04 trazodone [TRAZODONE] Allergy Intermediate I CAN'T Verified 01/28/22 01:04 BREATHE RIGHT , shortness of breath Assessment & Plan Assessment & Plan (1) Moderate recurrent major depression: Status: Acute Code(s): F33.1 - Major depressive disorder, recurrent, moderate (2) Femoral distal fracture: Qualifiers: Encounter type: initial encounter Fracture type: closed Laterality: right Status: Acute Code(s): S72.409A - Unspecified fracture of lower end of unspecified femur, initial encounter for closed fracture Plan Denita is a 61 y.o. Female who carries a dx of Depression, Anxiety, and r/o of BPD. She presented [place] [facility] [place] 01/28/[place]22 due to fall and injury to her left ankle and right knee.? She did not hit her head, no LOC. In the ED, pt was found to have a left trimalleolar intra-articular fracture with tibiotalar dislocation [reduced] and a right transverse periprosthetic fracture of the distal femur. The ankle was reduced and splinted under ketamine sedation. Orthopedics was consulted and she was operated on 01/31/22. She has co-morbid hypothyroidism, chronic leukopenia, MARLENY not on CPAP, and bilateral knee replacements. Pt remains on IMC due to complication of sepsis on 02/01/22 and acute hypoxic respiratory failure as well as blood loss anemia. Plan: Will discontinue bupropion 75 mg, at this may be stimulating at bedtime and also worsening anxious agitation, pt denies benefit for sx of depression. Will decrease bedtime seroquel to 400 mg for sleep and start seroquel 100 mg QAM and Qnoon for sx of agitation, mood lability. Will change melatonin to PRN. Pt does not meet criteria for IPLOC at this time, as she has OP psych services and she is denying SI/SIB/HI, no imminent safety concerns. -Continue monitoring medically. -Consult requested for med management -initial treatments ordered I spent minutes with the patient and/or on the patient floor today, greater than?50% of which was spent counseling/coordinating care. Patient educated on: medication risk/benefits
[2022-02-02] MEDS: QUEtiapine Fumarate 300 MG TABLET 600 MG PO (19:59)
[2022-02-02] MEDS: oxyCODONE HCl Immed Release 5 MG TABLET 10 MG PO (20:00)
[2022-02-02] MEDS: metroNIDAZOLE 0.75 % Gel 45 GM TUBE 1 APPL TOPICAL (20:06)
[2022-02-03] MEDS: Omeprazole 40 MG CAPSULE.DR PO (05:33)
[2022-02-03] MEDS: Levothyroxine Sodium 25 MCG TABLET PO (05:34)
[2022-02-03] MEDS: Levothyroxine Sodium 112 MCG TABLET PO (05:34)
[2022-02-03] MEDS: oxyCODONE HCl Immed Release 5 MG TABLET 10 MG PO ×5 (05:34→20:06)
[2022-02-03 06:46] LABS: Hemoglobin 8.5 g/dl (12.0-16.0); Mean Corpuscular Hemoglobin 32.2 pg (27.0-33.0); Mean Corpuscular Volume 94.7 fL (80.0-98.0); Mean Platelet Volume 9.6 fL (9.4-12.3); Platelet Count 204 X10*3/uL (160-400); Red Blood Count 2.64 X10*6/uL (4.20-5.50); Red Cell Distribution Width 13.1 % (11.0-16.0); White Blood Count 5.2 X10*3/uL (4.8-10.8)
[2022-02-03 07:04] LABS: Anion Gap 16 (12-20); Blood Urea Nitrogen 7 mg/dL (9-16); Calcium 7.8 mg/dL (8.4-10.2); Carbon Dioxide 24 mmol/L (22-29); Chloride 98 mmol/L (96-108); Creatinine Clr Calc Pharmacy 134.6; Estimated Glomerular Filt Rate > 60; Glucose Fasting 77 mg/dL (60-99); Magnesium 1.9 mg/dL (1.6-2.6); Potassium 3.2 mmol/L (3.3-5.1); Sodium 135 mmol/L (135-145)
--- NOTE | 2022-02-03 07:38 | P.PNOP_ITS ---
Subjective Subjective Date of Service: 02/03/22 Interval history: POD4 status post left ankle ORIF and right distal femur IM nail. Patient is resting in bed comfortably. No overnight events. No additional complaints. Patient allowed to sleep. Physical Exam Vital Signs: Vital Signs: Last Vital Signs Temp 102.4 F H 02/02/22 23:39 Pulse 90 02/02/22 23:39 Resp 18 02/02/22 23:39 BP 106/52 L 02/02/22 23:39 Pulse Ox 90 L 02/02/22 23:39 O2 Del Method 02/02/22 23:39 O2 Flow Rate 2 02/02/22 23:39 FiO2 98 02/02/22 06:41 Oxygen Flow Rate 3 02/02/22 06:41 BMI result Body Mass Index 35.1 Const: General: cooperative, healthy appearing and no acute distress Resp: Effort & Inspection: normal respiratory effort and able to speak in comp lete sentences Cardio: Rate: regular rate Peripheral pulses: Peripheral pulses 2+ throughout GI: Palpation (GI): Soft to palpation Skin: Lesions: no lesions Rashes: no rashes Extrem: Other: Left ankle splint is clean dry and intact. Able to move all digits. Sensation reportedly intact. Right distal femur Aquacel is clean dry and intact. Patient is able to move all digits. Sensation reportedly intact. Procedures Date of Service Date of Service: 02/03/22 Progress Note: A&P Assessment and plan (1) Closed trimalleolar fracture: Status: Acute Assessment and Plan: Continue pain mgmnt Continue Lovenox for dvt ppx Continue PT for lt ankle ORIF - NWB and rt femur IM Nail - TTWB Dispo planning-PT, pain mgmnt, case management STR placement (2) Femoral distal fracture: Status: Acute (3) Fall: Status: Acute Time Spent With Patient Time: Total time spent is greater than 50% in coordination of care (as documented) at patient's floor/unit and/or counseling patient: Quality Stroke Does the patient have a stroke diagnosis?: No VTE Prior VTE?: No VTE Risk Level:: Medical - moderate - high VTE Device Contraindication: N/A - Device Ordered VTE Drug Contraindication: N/A - Med Ordered
[2022-02-03 08:00] VITALS: BP 122/69; PULSE 90; RESP 18; TEMP 36.7; O2SAT 92
--- NOTE | 2022-02-03 09:21 | P.CDIC_ITS ---
CDI Concurrent Query Documentation Clarification: PHYSICIAN'S DOCUMENTATION REQUEST Date of Query: 02/03/22921 Patient Name: Denita Parekh Admit Date: 01/28/22 Dear Doctor, A review of the medical record indicates additional documentation may be needed. Please review below and update the documentation accordingly. Clinical Indicators: Is there a diagnosis that correlates to these lab findings: Risk Factors/Clinical Indicators/Treatments LABS: 02/02 - potassium 3.0 L Klor-con Based on the above, could you clarify in the Progress Notes the appropriate diagnosis, if significant, that supports the above abnormalities and additional evaluation, monitoring, and/or treatment rendered: * Hypokalemia or other etiology of lab findings * Labs indicate a diagnosis of (please specify) * Other (please specify) * Unable to determine Use of terms such as suspected, likely, concern for, or probable (associated with a specific diagnosis that is being evaluated, monitored, or treated as if it exists) are acceptable and can be coded in the inpatient setting, when documented at the time of discharge. Thank you, Armida Amador [facility], CDIS Extension: [phone] Please use your independent medical judgment in providing your response. THIS QUERY IS PART OF THE PERMANENT MEDICAL RECORD Provider Response: Other Other Diagnosis: hyopkalemia
[2022-02-03] MEDS: Acetaminophen 325 MG TABLET 650 MG PO ×2 (09:30→20:07)
[2022-02-03] MEDS: valACYclovir HCL 1,000 MG TABLET 1000 MG PO (09:30)
[2022-02-03] MEDS: calcium polycarbophiL TABLET 1 TAB PO ×2 (09:31→20:06)
[2022-02-03] MEDS: FLUoxetine HCl 20 MG CAPSULE 60 MG PO (09:31)
[2022-02-03] MEDS: Multivitamin TABLET 1 TAB PO (09:31)
[2022-02-03] MEDS: Cholecalciferol (Vitamin D3) 25 MCG TABLET PO (09:31)
[2022-02-03] MEDS: Ascorbic Acid 250 MG TABLET PO (09:31)
[2022-02-03] MEDS: Gabapentin 400 MG CAPSULE 800 MG PO ×3 (09:31→20:06)
[2022-02-03] MEDS: Loratadine 10 MG TABLET PO (09:31)
[2022-02-03] MEDS: QUEtiapine Fumarate 100 MG TABLET PO ×2 (09:31→13:09)
[2022-02-03] MEDS: Docusate Sodium 100 MG CAPSULE PO (09:32)
[2022-02-03] MEDS: polyethylene glycoL 3350 17 GM POWD.PACK PO (09:42)
--- NOTE | 2022-02-03 10:27 | P.PNIM_ITS ---
Subjective Subjective Date of Service: 02/03/22 Interval History: cc: severe pain interval history:continued pain, anxiety, depression Cardiovascular Cardiovascular: Reports no additional cardiovascular complaints Respiratory Respiratory: Reports no additional respiratory complaints Physical Exam Vital Signs: Vital Signs: Last Vital Signs Temp 98.1 F 02/03/22 08:00 Pulse 90 02/03/22 08:00 Resp 18 02/03/22 08:00 BP 122/69 02/03/22 08:00 Pulse Ox 92 02/03/22 08:00 O2 Del Method 02/03/22 08:00 O2 Flow Rate 2 02/02/22 23:39 FiO2 98 02/02/22 06:41 Oxygen Flow Rate 3 02/02/22 06:41 BMI result Body Mass Index 35.1 Const: General: cooperative, healthy appearing and no acute distress Resp: Effort & Inspection: normal respiratory effort and able to speak in complete sentences Cardio: Rate: regular rate Peripheral pulses: Peripheral pulses 2+ th roughout GI: Palpation (GI): Soft to palpation Skin: Lesions: no lesions Rashes: no rashes Extrem: Other: Left ankle splint is clean dry and intact. Able to move all digits. Sensation reportedly intact. Right distal femur Aquacel is clean dry and intact. Patient is able to move all digits. Sensation reportedly intact. Objective Data Active Medications Acetaminophen (Acetaminophen 325 Mg Tablet) 650 mg PO Q6H PRN PRN Reason: Pain, Mild (Pain Scale 1-3) Last Admin: 02/03/22 09:30 Dose: 650 mg Documented By: MAGY Acetaminophen (Acetaminophen 325 Mg Tablet) 975 mg PO Q6H PRN PRN Reason: pain Albuterol Sulfate (Albuterol Sulfate 90 Mcg 8 Gm Inhaler) 2 puff INHALE Q6H PRN PRN Reason: shortness of breath or wheezing Ascorbic Acid (Ascorbic Acid 250 Mg Tablet) 250 mg PO DAILY REPLACED BY [facility] Last Admin: 02/03/22 09:31 Dose: 250 mg Documented By: MAGY Calcium Carbonate (Calcium Carbonate 500 Mg Tablet) 500 mg PO DAILY REPLACED BY [facility] Last Admin: 02/03/22 09:30 Dose: 500 mg Documented By: MAGY Calcium Polycarbophil (Calcium Polycarbophil Tablet) 1 tab PO BID REPLACED BY [facility] Last Admin: 02/03/22 09:31 Dose: 1 tab Documented By: MAGY Clonazepam (Clonazepam 0.5 Mg Tablet) 0.5 mg PO BID PRN PRN Reason: anxiety Docusate Sodium (Docusate Sodium 100 Mg Capsule) 100 mg PO DAILY REPLACED BY [facility] Last Admin: 02/03/22 09:32 Dose: 100 mg Documented By: MAGY Enoxaparin Sodium (Enoxaparin Sodium 40 Mg/0.4 Ml Syringe) 40 mg SUBCUT Q24H REPLACED BY [facility] Last Admin: 02/02/22 17:20 Dose: 40 mg Documented By: HAN Fluoxetine HCl (Fluoxetine Hcl 20 Mg Capsule) 60 mg PO DAILY REPLACED BY [facility] Last Admin: 02/03/22 09:31 Dose: 60 mg Documented By: MAGY Gabapentin (Gabapentin 400 Mg Capsule) 800 mg PO TID REPLACED BY [facility] Last Admin: 02/03/22 09:31 Dose: 800 mg Documented By: MAGY Ceftriaxone Sodium 1 gm/ (Sodium Chloride) 50 mls @ 100 mls/hr IV Q24H REPLACED BY [facility] Last Infusion: 02/02/22 19:42 Dose: 0 mls/hr Documented By: TRINH Morphine Sulfate () 100 mg in 100 mls @ 0 mls/hr IVCONT .Q0M REPLACED BY [facility]; Protocol Levothyroxine Sodium (Levothyroxine Sodium 112 Mcg Tablet) 112 mcg PO DAILY@0600 REPLACED BY [facility] Last Admin: 02/03/22 05:34 Dose: 112 mcg Documented By: TRINH Levothyroxine Sodium (Levothyroxine Sodium 25 Mcg Tablet) 25 mcg PO DAILY@0600 REPLACED BY [facility] Last Admin: 02/03/22 05:34 Dose: 25 mcg Documented By: TRINH Loratadine (Loratadine 10 Mg Tablet) 10 mg PO DAILY REPLACED BY [facility] Last Admin: 02/03/22 09:31 Dose: 10 mg Documented By: MAGY Melatonin (Melatonin 3 Mg Tablet) 6 mg PO BEDTIME PRN PRN Reason: insomnia Metronidazole (Metronidazole 0.75 % Gel 45 Gm Tube) 1 appl TOPICAL BEDTIME REPLACED BY [facility] Last Admin: 02/02/22 20:06 Dose: 1 appl Documented By: TRINH Multivitamins/Vitamin C (Multivitamin Tablet) 1 tab PO DAILY REPLACED BY [facility] Last Admin: 02/03/22 09:31 Dose: 1 tab Documented By: MAGY Naloxone HCl (Naloxone Hcl 0.4 Mg/Ml Vial) 0.2 mg IVPUSH Q2M PRN PRN Reason: Excessive sedation or RR < 8 Omeprazole (Omeprazole 40 Mg Capsule.Dr) 40 mg PO DAILY@0630 REPLACED BY [facility] Last Admin: 02/03/22 05:33 Dose: 40 mg Documented By: TRINH Ondansetron HCl (Ondansetron Hcl 4 Mg/2 Ml Vial) 4 mg IVPUSH Q8H PRN PRN Reason: Nausea and Vomiting Last Admin: 01/31/22 05:31 Dose: 4 mg Documented By: BRAVO Oxycodone HCl (Oxycodone Hcl Immed Release 5 Mg Tablet) 10 mg PO Q4H PRN PRN Reason: Pain, Moderate (Pain Scale 4-6 Last Admin: 02/03/22 09:30 Dose: 10 mg Documented By: MAGY Pharmacy Consult (Consult Rx Perform Med Rec) 1 each MISCELLANE ONCE PRN PRN Reason: Consult order Polyethylene Glycol (Polyethylene Glycol 3350 17 Gm Powd.Pack) 17 gm PO DAILY REPLACED BY [facility] Last Admin: 02/03/22 09:42 Dose: 17 gm Documented By: MAGY Quetiapine Fumarate (Quetiapine Fumarate 400 Mg Tablet) 400 mg PO BEDTIME REPLACED BY [facility] Last Admin: 02/02/22 21:23 Dose: Not Given Documented By: TRINH Non-Admin Reason: previous dosage given MD tirso Quetiapine Fumarate (Quetiapine Fumarate 100 Mg Tablet) 100 mg PO BID@0800,1300 REPLACED BY [facility] Last Admin: 02/03/22 09:31 Dose: 100 mg Documented By: MAGY Sodium Chloride (0.9 % Sodium Chloride Flush 3 Ml Syringe) 3 ml IVFLUSH QSHIFT REPLACED BY [facility] Last Admin: 02/03/22 09:22 Dose: Not Given Documented By: MAGY Non-Admin Reason: assessed Valacyclovir HCl (Valacyclovir Hcl 1,000 Mg Tablet) 1,000 mg PO DAILY REPLACED BY [facility] Last Admin: 02/03/22 09:30 Dose: 1,000 mg Documented By: MAGY Vitamin D (Cholecalciferol (Vitamin D3) 25 Mcg Tablet) 25 mcg PO DAILY REPLACED BY [facility] Last Admin: 02/03/22 09:31 Dose: 25 mcg Documented By: MAGY Labs CBC & Chem 7: 02/03/22 05:50 02/03/22 05:50 Labs: Laboratory Results - last 24 hr 02/03/22 02/03/22 05:50 05:50 MCV 94.7 MCH 32.2 MCHC 34.0 RDW 13.1 Plt Count 204 MPV 9.6 Absolute Nucleated RBC 0.000 Nucleated RBC % (auto) 0.0 Anion Gap 16 Estim Creat Clear Calc 134.6 Estimated GFR > 60 Fasting Glucose 77 Calcium 7.8 L Magnesium 1.9 Microbiology Microbiology Results: Microbiology 02/01/22 15:50 Blood Culture - Preliminary Blood - Venous No growth after 24 hours. Assessment and Plan (1) Closed trimalleolar fracture: Status: Acute (2) Femoral distal fracture: Status: Acute Plan hospital d#7 61yo?F with hypothyroidism, chronic leukopenia, MARLENY not on CPAP, depression, and bilateral knee replacements who fell and sustained a left trimalleolar intra- articular fracture with tibiotalar dislocation [reduced] and a right transverse periprosthetic fracture of the distal femur. now complicated by sepsis and acute hypoxic respiratory failure as well as blood loss anemia sepsis 02/01/22, not severe, hypotension due to anemia and opiates possible right sided pneumonia continue rocephin, bcx negative so far, ua unremarkable fever also possibly dvt, will check doppler acute hypoxic respiratory failure due to pneumonia wean o2 as tolerated hypokalemia replace and monitor ankle fracture knee fracture - operative fixation 01/30/22, on morphine [employer] for pain contrl acute blood loss anemia due to fracture hgb improved to about 8 after transfusion 02/01/22, stable depression/anxiety patient requesting psychiatry eval continue buproprion, seroquel, fluexetine hypothyroid synthroid # VTE ppx LMWH postoperatively x28d reason for continued hospitalization: sepsis, ongoing fevers Quality Stroke Does the patient have a stroke diagnosis?: No VTE Prior VTE?: No VTE Risk Level:: Medical - moderate - high VTE Device Contraindication: N/A - Device Ordered VTE Drug Contraindication: N/A - Med Ordered
--- NOTE | 2022-02-03 11:14 | PC.NURSE ---
Addendum entered by Charlie Gonzalez RN 02/03/22 15:07: PA assessed pt's b/l LE's earlier stating no emergent change. pt's IV site changed and wrist cast placed. pt's visitors at bedside. encinas d/c'ed and purewick catheter placed. Addendum entered by Charlie Gonzalez RN 02/03/22 13:06: encinas d/c'ed pure wick in place Original Note: pt R knee swollen, pt c/o increased discomfort, red and warm to touch. MD informed. per md he will notify ortho. safety and fall precautions maintained. call gomes within reach. PT at bedside assisting with moving pt to ortho recliner which was done with no complications.
[2022-02-03 11:17] VITALS: BP 122/69; PULSE 90; O2SAT 92
[2022-02-03] MEDS: traMADoL HCL 50 MG TABLET 100 MG PO (14:47)
[2022-02-03 15:58] VITALS: BP 118/63; PULSE 85; RESP 18; TEMP 37.2; O2SAT 97
[2022-02-03] MEDS: cefTRIAXone sodium 1 GM in 0.9 % Sodium Chloride 50 ML IV (16:59)
[2022-02-03] MEDS: Enoxaparin Sodium 40 MG/0.4 ML SYRINGE SUBCUT (17:03)
[2022-02-03] MEDS: QUEtiapine Fumarate 400 MG TABLET PO (22:50)
[2022-02-03 23:18] VITALS: BP 120/62; PULSE 84; RESP 18; TEMP 36.4; O2SAT 94
[2022-02-04] MEDS: oxyCODONE HCl Immed Release 5 MG TABLET 10 MG PO ×4 (01:15→20:06)
[2022-02-04 06:26] LABS: Hematocrit 24.6 % (37.0-47.0); Hemoglobin 8.3 g/dl (12.0-16.0); Mean Corpuscular HGB Conc 33.7 g/dl (31.0-35.0); Mean Corpuscular Hemoglobin 31.6 pg (27.0-33.0); Mean Corpuscular Volume 93.5 fL (80.0-98.0); Mean Platelet Volume 9.3 fL (9.4-12.3); Platelet Count 239 X10*3/uL (160-400); Red Blood Count 2.63 X10*6/uL (4.20-5.50); Red Cell Distribution Width 13.1 % (11.0-16.0); White Blood Count 4.9 X10*3/uL (4.8-10.8)
[2022-02-04] MEDS: Levothyroxine Sodium 112 MCG TABLET PO (06:44)
[2022-02-04] MEDS: Levothyroxine Sodium 25 MCG TABLET PO (06:44)
[2022-02-04] MEDS: Omeprazole 40 MG CAPSULE.DR PO (06:44)
[2022-02-04 07:08] LABS: Blood Urea Nitrogen 7 mg/dL (9-16); Calcium 7.7 mg/dL (8.4-10.2); Estimated Glomerular Filt Rate > 60; Glucose Fasting 73 mg/dL (60-99)
[2022-02-04 07:25] LABS: Anion Gap 15 (12-20); Carbon Dioxide 26 mmol/L (22-29); Chloride 100 mmol/L (96-108); Potassium 2.9 mmol/L (3.3-5.1); Sodium 138 mmol/L (135-145)
[2022-02-04 07:37] VITALS: BP 124/57; PULSE 85; RESP 12; TEMP 37.1; O2SAT 94
[2022-02-04] MEDS: calcium polycarbophiL TABLET 1 TAB PO ×2 (11:24→20:07)
[2022-02-04] MEDS: valACYclovir HCL 1,000 MG TABLET 1000 MG PO (11:24)
[2022-02-04] MEDS: FLUoxetine HCl 20 MG CAPSULE 60 MG PO (11:24)
[2022-02-04] MEDS: polyethylene glycoL 3350 17 GM POWD.PACK PO (11:24)
[2022-02-04] MEDS: Acetaminophen 325 MG TABLET 650 MG PO (11:24)
[2022-02-04] MEDS: Docusate Sodium 100 MG CAPSULE PO (11:24)
[2022-02-04] MEDS: Potassium Chloride Packet 20 MEQ PACKET 40 MEQ PO ×2 (11:24→14:11)
[2022-02-04] MEDS: QUEtiapine Fumarate 100 MG TABLET PO ×2 (11:25→14:12)
[2022-02-04] MEDS: traMADoL HCL 50 MG TABLET 100 MG PO ×2 (11:25→21:35)
[2022-02-04] MEDS: Loratadine 10 MG TABLET PO (11:25)
[2022-02-04] MEDS: Gabapentin 400 MG CAPSULE 800 MG PO ×3 (11:25→20:07)
[2022-02-04] MEDS: Cholecalciferol (Vitamin D3) 25 MCG TABLET PO (11:25)
[2022-02-04] MEDS: Ascorbic Acid 250 MG TABLET PO (11:25)
[2022-02-04] MEDS: Multivitamin TABLET 1 TAB PO (11:25)
[2022-02-04 11:45] VITALS: BP 118/60; PULSE 85; RESP 16; TEMP 36.7; O2SAT 95
--- NOTE | 2022-02-04 14:47 | MHC.CM.PN ---
Per ROUNDS discussion, Patient is not yet medically cleared for dc r/t fever spikes; Acute Rehab continue to be the goal and CM will follow.
--- NOTE | 2022-02-04 14:51 | HO.PM.IMPN ---
Subjective Subjective Date of Service: 02/04/22 Interval History: the patient was seen and evaluated this morning Laying in bed, feels significant improvement but still having pain in her leg Still spiking low-grade fevers No reported other overnight events. Systemic review: No fever, chills or weakness No chest pain, palpitation No shortness of breath or coughing No abdominal pain, nausea or vomiting No urinary symptoms No any rash or wounds Physical Exam Vital Signs: Vital Signs: Last Vital Signs Temp 98.1 F 02/04/22 11:45 Pulse 85 02/04/22 11:45 Resp 16 02/04/22 11:45 BP 118/60 02/04/22 11:45 Pulse Ox 95 02/04/22 11:45 O2 Del Method 02/04/22 12:00 O2 Flow Rate 2 02/04/22 07:37 FiO2 98 02/02/22 06:41 Oxygen Flow Rate 3 02/02/22 06:41 BMI result Body Mass Index 35.1 Const: Other: Constitutional : Alert, oriented, not in distress Neck : Normal inspection, Supple Cardiovascular : RRR, no JVP, no lower extremity edema Respiratory : fair bilateral air entry, no crackles, wheezes or rhonchi Gastrointestinal: soft, lax, Normal bowel sounds, Non tender Skin : Warm, Dry musculoskeletal: Left ankle splint is clean dry and intact.? Able to move all digits.? Sensation reportedly intact., Right distal femur Aquacel is clean dry and intact.? Patient is able to move all digits.? Sensation reportedly intact. Neurological : Alert & oriented x3, No focal deficit , CN 2-12 within normal Objective Data Active Medications Acetaminophen (Acetaminophen 325 Mg Tablet) 650 mg PO Q6H PRN PRN Reason: Pain, Mild (Pain Scale 1-3) Last Admin: 02/04/22 11:24 Dose: 650 mg Documented By: SAIGE-SANCHO Acetaminophen (Acetaminophen 325 Mg Tablet) 975 mg PO Q6H PRN PRN Reason: pain Albuterol Sulfate (Albuterol Sulfate 90 Mcg 8 Gm Inhaler) 2 puff INHALE Q6H PRN PRN Reason: shortness of breath or wheezing Ascorbic Acid (Ascorbic Acid 250 Mg Tablet) 250 mg PO DAILY SEE Last Admin: 02/04/22 11:25 Dose: 250 mg Documented By: SAIGE-SANCHO Calcium Carbonate (Calcium Carbonate 500 Mg Tablet) 500 mg PO DAILY [facility] Last Admin: 02/04/22 11:26 Dose: 500 mg Documented By: MAGY Calcium Polycarbophil (Calcium Polycarbophil Tablet) 1 tab PO BID [facility] Last Admin: 02/04/22 11:24 Dose: 1 tab Documented By: MAGY Clonazepam (Clonazepam 0.5 Mg Tablet) 0.5 mg PO BID PRN PRN Reason: anxiety Docusate Sodium (Docusate Sodium 100 Mg Capsule) 100 mg PO DAILY [facility] Last Admin: 02/04/22 11:24 Dose: 100 mg Documented By: MAGY Enoxaparin Sodium (Enoxaparin Sodium 40 Mg/0.4 Ml Syringe) 40 mg SUBCUT Q24H [facility] Last Admin: 02/03/22 17:03 Dose: 40 mg Documented By: MAGY Fluoxetine HCl (Fluoxetine Hcl 20 Mg Capsule) 60 mg PO DAILY [facility] Last Admin: 02/04/22 11:24 Dose: 60 mg Documented By: MAGY Gabapentin (Gabapentin 400 Mg Capsule) 800 mg PO TID [facility] Last Admin: 02/04/22 14:11 Dose: 800 mg Documented By: MAGY Ceftriaxone Sodium 1 gm/ (Sodium Chloride) 50 mls @ 100 mls/hr IV Q24H [facility] Last Infusion: 02/03/22 17:31 Dose: 0 mls/hr Documented By: MAGY Levothyroxine Sodium (Levothyroxine Sodium 112 Mcg Tablet) 112 mcg PO DAILY@0600 [facility] Last Admin: 02/04/22 06:44 Dose: 112 mcg Documented By: ADRIANO Levothyroxine Sodium (Levothyroxine Sodium 25 Mcg Tablet) 25 mcg PO DAILY@0600 [facility] Last Admin: 02/04/22 06:44 Dose: 25 mcg Documented By: ADRIANO Loratadine (Loratadine 10 Mg Tablet) 10 mg PO DAILY [facility] Last Admin: 02/04/22 11:25 Dose: 10 mg Documented By: MAGY Melatonin (Melatonin 3 Mg Tablet) 6 mg PO BEDTIME PRN PRN Reason: insomnia Metronidazole (Metronidazole 0.75 % Gel 45 Gm Tube) 1 appl TOPICAL BEDTIME [facility] Last Admin: 02/03/22 23:32 Dose: Not Given Documented By: ADRIANO Non-Admin Reason: Patient Asleep Multivitamins/Vitamin C (Multivitamin Tablet) 1 tab PO DAILY [facility] Last Admin: 02/04/22 11:25 Dose: 1 tab Documented By: MAGY Naloxone HCl (Naloxone Hcl 0.4 Mg/Ml Vial) 0.2 mg IVPUSH Q2M PRN PRN Reason: Excessive sedation or RR < 8 Omeprazole (Omeprazole 40 Mg Capsule.Dr) 40 mg PO DAILY@0630 [facility] Last Admin: 02/04/22 06:44 Dose: 40 mg Documented By: ADRIANO Ondansetron HCl (Ondansetron Hcl 4 Mg/2 Ml Vial) 4 mg IVPUSH Q8H PRN PRN Reason: Nausea and Vomiting Last Admin: 01/31/22 05:31 Dose: 4 mg Documented By: BRAVO Oxycodone HCl (Oxycodone Hcl Immed Release 5 Mg Tablet) 10 mg PO Q4H PRN PRN Reason: Pain, Moderate (Pain Scale 4-6 Last Admin: 02/04/22 11:27 Dose: 10 mg Documented By: MAGY Pharmacy Consult (Consult Rx Perform Med Rec) 1 each MISCELLANE ONCE PRN PRN Reason: Consult order Polyethylene Glycol (Polyethylene Glycol 3350 17 Gm Powd.Pack) 17 gm PO DAILY [facility] Last Admin: 02/04/22 11:24 Dose: 17 gm Documented By: MAGY Quetiapine Fumarate (Quetiapine Fumarate 400 Mg Tablet) 400 mg PO BEDTIME [facility] Last Admin: 02/03/22 22:50 Dose: 400 mg Documented By: ADRIANO Quetiapine Fumarate (Quetiapine Fumarate 100 Mg Tablet) 100 mg PO BID@0800,1300 [facility] Last Admin: 02/04/22 14:12 Dose: 100 mg Documented By: MAGY Sodium Chloride (0.9 % Sodium Chloride Flush 3 Ml Syringe) 3 ml IVFLUSH QSHIFT [facility] Last Admin: 02/04/22 07:34 Dose: Not Given Documented By: MAGY Non-Admin Reason: assessed Tramadol HCl (Tramadol Hcl 50 Mg Tablet) 100 mg PO Q4H PRN PRN Reason: moderate pain Last Admin: 02/04/22 11:25 Dose: 100 mg Documented By: SAIGE-SOFFA Valacyclovir HCl (Valacyclovir Hcl 1,000 Mg Tablet) 1,000 mg PO DAILY [facility] Last Admin: 02/04/22 11:24 Dose: 1,000 mg Documented By: SAIGE-SOFFA Vitamin D (Cholecalciferol (Vitamin D3) 25 Mcg Tablet) 25 mcg PO DAILY [facility] Last Admin: 02/04/22 11:25 Dose: 25 mcg Documented By: SAIGE-SOFFA Labs CBC & Chem 7: 02/04/22 05:51 02/04/22 05:51 Labs: Laboratory Results - last 24 hr 02/04/22 02/04/22 05:51 05:51 MCV 93.5 MCH 31.6 MCHC 33.7 RDW 13.1 Plt Count 239 MPV 9.3 L Absolute Nucleated RBC 0.000 Nucleated RBC % (auto) 0.0 Anion Gap 15 Estim Creat Clear Calc 140.0 Estimated GFR > 60 Fasting Glucose 73 Calcium 7.7 L Magnesium 2.0 Microbiology Microbiology Results: Microbiology 02/01/22 15:50 Blood Culture - Preliminary Blood - Venous No growth after 48 hours. Assessment and Plan (1) Sepsis: Status: Acute (2) Pneumonia: Status: Acute (3) Hypokalemia: Status: Acute Plan hospital d#7 61yo?F with hypothyroidism, chronic leukopenia, MARLENY not on CPAP, depression, and bilateral knee replacements who fell and sustained a left trimalleolar intra-articular fracture with tibiotalar dislocation [reduced] and a right transverse periprosthetic fracture of the distal femur. now complicated by sepsis and acute hypoxic respiratory failure as well as blood loss anemia acute hypoxic respiratory failure sepsis 02/01/22 possible right sided pneumonia continue antibiotics bcx negative Oxygen wean down to room air Negative doppler for DVT Low-grade fever overnight, to monitor hypokalemia potassium of 2.9 replace and monitor ankle fracture knee fracture operative fixation 01/30/22, Oxycodone for pain contrl orthopedic team following acute blood loss anemia due to fracture hgb improved to about 8 after transfusion 02/01/22, stable depression/anxiety patient requesting psychiatry eval continue buproprion, seroquel, fluexetine hypothyroid synthroid # VTE ppx LMWH postoperatively x28d reason for continued hospitalization: Continue antibiotic until fever resolved completely for 24 hours. Quality Stroke Does the patient have a stroke diagnosis?: No VTE Prior VTE?: No VTE Risk Level:: Medical - moderate - high VTE Device Contraindication: N/A - Device Ordered VTE Drug Contraindication: N/A - Med Ordered
[2022-02-04 15:13] VITALS: BP 146/77; PULSE 84; RESP 18; TEMP 37; O2SAT 99
--- NOTE | 2022-02-04 15:37 | PC.NURSE ---
Pt's K replaced. Pt refused for PT treatment. safety and fall precautions in place. call gomes within reach. PRNs administered w/ + effect.
[2022-02-04] MEDS: cefTRIAXone sodium 1 GM in 0.9 % Sodium Chloride 50 ML IV (16:22)
[2022-02-04] MEDS: Enoxaparin Sodium 40 MG/0.4 ML SYRINGE SUBCUT (16:22)
[2022-02-04 19:06] VITALS: BP 114/64; PULSE 82; RESP 18; TEMP 36.9; O2SAT 97
[2022-02-04] MEDS: QUEtiapine Fumarate 400 MG TABLET PO (20:06)
[2022-02-04] MEDS: Zolpidem Tartrate 5 MG TABLET PO (22:09)
[2022-02-05] VITALS (8 sets, daily range): BP systolic 98–129; BP diastolic 58–71; PULSE 75–88; RESP 15–18; TEMP 36.3–37.7; O2SAT 91–96
--- NOTE | 2022-02-05 04:41 | PC.NURSE ---
Took over care of patient around 23:00. VSS. See shift assessment. Pt awake at that time. A&OX4, pleasant and cooperative. Pt obtains a volume of 2,000 on IS. No c/o pain. R leg had 3 surgical dressings all CD&I. +CMS and +PP. Left leg has shelton wrap with +CMS. Left wrist in soft cast, +CMS and +radial pulse. Pt slept comfortably throughout the night with call gomes within reach. Purewick in place. Will continue to monitor.
[2022-02-05] MEDS: Omeprazole 40 MG CAPSULE.DR PO (06:23)
[2022-02-05] MEDS: Levothyroxine Sodium 112 MCG TABLET PO (06:23)
[2022-02-05] MEDS: 0.9 % Sodium Chloride Flush 3 ML SYRINGE IVFLUSH ×3 (06:23→18:48)
[2022-02-05] MEDS: Levothyroxine Sodium 25 MCG TABLET PO (06:23)
[2022-02-05 07:51] LABS: Anion Gap 17 (12-20); Blood Urea Nitrogen 7 mg/dL (9-16); Calcium 7.9 mg/dL (8.4-10.2); Carbon Dioxide 22 mmol/L (22-29); Chloride 101 mmol/L (96-108); Estimated Glomerular Filt Rate > 60; Glucose Random 75 mg/dL (60-115); Sodium 136 mmol/L (135-145)
[2022-02-05 08:34] LABS: Potassium 3.5 mmol/L (3.3-5.1)
--- NOTE | 2022-02-05 08:38 | PM.PNORT ---
Subjective Subjective Date of Service: 02/05/22 Interval history: POD6 status post left ankle ORIF and right distal femur IM nail. Patient is resting in bed comfortably. No overnight events. Pain is well managed. No additional complaints. Physical Exam Vital Signs: Vital Signs: Last Vital Signs Temp 98.6 F 02/05/22 07:50 Pulse 83 02/05/22 07:50 Resp 18 02/05/22 07:50 BP 129/71 02/05/22 07:50 Pulse Ox 94 02/05/22 07:50 O2 Del Method 02/05/22 07:50 O2 Flow Rate 2 02/04/22 07:37 FiO2 98 02/02/22 06:41 Oxygen Flow Rate 3 02/02/22 06:41 BMI result Body Mass Index 35.1 Const: General: cooperative, healthy appearing and no acute distress Resp: Effort & Inspection: normal respiratory effort and able to speak in complete sentences Cardio: Rate: regular rate Peripheral pulses: Peripheral pulses 2+ throughout GI: Palpation (GI): Soft to palpation Skin: Lesions: no lesions Rashes: no rashes Extrem: Other: Left ankle splint is clean dry and intact. Able to move all digits. Sensation reportedly intact. Right distal femur incision sites are clean dry and intact. [place]ine intact. New Aquacel dressing applied. Patient is able to move all digits. Sensation reportedly intact. Procedures Date of Service Date of Service: 02/05/22 Progress Note: A&P Assessment and plan (1) Closed trimalleolar fracture: Status: Acute Assessment and Plan: Continue pain mgmnt Continue Lovenox for dvt ppx Continue PT for lt ankle ORIF - NWB and rt femur IM Nail - TTWB Dispo planning-PT, pain mgmnt, case management STR placement (2) Fall: Status: Acute (3) Femoral distal fracture: Status: Acute Time Spent With Patient Time: Total time spent is greater than 50% in coordination of care (as documented) at patient's floor/unit and/or counseling patient: Quality Stroke Does the patient have a stroke diagnosis?: No VTE Prior VTE?: No VTE Risk Level:: Medical - moderate - high VTE Device Contraindication: N/A - Device Ordered VTE Drug Contraindication: N/A - Med Ordered
[2022-02-05] MEDS: FLUoxetine HCl 20 MG CAPSULE 60 MG PO (10:57)
[2022-02-05] MEDS: Gabapentin 400 MG CAPSULE 800 MG PO ×3 (10:57→22:50)
[2022-02-05] MEDS: Cholecalciferol (Vitamin D3) 25 MCG TABLET PO (10:58)
[2022-02-05] MEDS: valACYclovir HCL 1,000 MG TABLET 1000 MG PO (10:58)
[2022-02-05] MEDS: Multivitamin TABLET 1 TAB PO (10:58)
[2022-02-05] MEDS: QUEtiapine Fumarate 100 MG TABLET PO ×2 (10:58→13:59)
[2022-02-05] MEDS: Docusate Sodium 100 MG CAPSULE PO (10:58)
[2022-02-05] MEDS: Loratadine 10 MG TABLET PO (10:58)
[2022-02-05] MEDS: Ascorbic Acid 250 MG TABLET PO (10:58)
[2022-02-05] MEDS: calcium polycarbophiL TABLET 1 TAB PO ×2 (10:58→22:50)
[2022-02-05] MEDS: oxyCODONE HCl Immed Release 5 MG TABLET 10 MG PO ×2 (10:59→18:50)
[2022-02-05 13:15] LABS: COVID-19 Test Negative (Negative); IDNOW Serial# 16C4AD1C
[2022-02-05] MEDS: traMADoL HCL 50 MG TABLET 100 MG PO (13:53)
--- NOTE | 2022-02-05 15:27 | HO.PM.IMPN ---
Subjective Subjective Date of Service: 02/05/22 Interval History: the patient was seen and evaluated this morning Laying in bed, Been under better control no more low-grade fevers No reported other overnight events. Systemic review: No fever, chills or weakness No chest pain, palpitation No shortness of breath or coughing No abdominal pain, nausea or vomiting No urinary symptoms No any rash or wounds Physical Exam Vital Signs: Vital Signs: Last Vital Signs Temp 98.3 F 02/05/22 11:53 Pulse 75 02/05/22 11:53 Resp 18 02/05/22 11:53 BP 116/69 02/05/22 11:53 Pulse Ox 95 02/05/22 12:00 O2 Del Method 02/05/22 12:00 O2 Flow Rate 2 02/04/22 07:37 FiO2 98 02/02/22 06:41 Oxygen Flow Rate 3 02/02/22 06:41 BMI result Body Mass Index 35.1 Const: Other: Constitutional : Alert, oriented, not in distress Neck : Normal inspection, Supple Cardiovascular : RRR, no JVP, no lower extremity edema Respiratory : fair bilateral air entry, no crackles, wheezes or rhonchi Gastrointestinal: soft, lax, Normal bowel sounds, Non tender Skin : Warm, Dry musculoskeletal: Left ankle splint is clean dry and intact.? Able to move all digits.? Sensation reportedly intact., Right distal femur Aquacel is clean dry and intact.? Patient is able to move all digits.? Sensation reportedly intact. Neurological : Alert & oriented x3, No focal deficit , CN 2-12 within normal Objective Data Active Medications Acetaminophen (Acetaminophen 325 Mg Tablet) 650 mg PO Q6H PRN PRN Reason: Pain, Mild (Pain Scale 1-3) Last Admin: 02/04/22 11:24 Dose: 650 mg Documented By: MAGY Acetaminophen (Acetaminophen 325 Mg Tablet) 975 mg PO Q6H PRN PRN Reason: pain Albuterol Sulfate (Albuterol Sulfate 90 Mcg 8 Gm Inhaler) 2 puff INHALE Q6H PRN PRN Reason: shortness of breath or wheezing Ascorbic Acid (Ascorbic Acid 250 Mg Tablet) 250 mg PO DAILY [facility] Last Admin: 02/05/22 10:58 Dose: 250 mg Documented By: LIZ Calcium Carbonate (Calcium Carbonate 500 Mg Tablet) 500 mg PO DAILY [facility] Last Admin: 02/05/22 10:58 Dose: 500 mg Documented By: LIZ Calcium Polycarbophil (Calcium Polycarbophil Tablet) 1 tab PO BID [facility] Last Admin: 02/05/22 10:58 Dose: 1 tab Documented By: LIZ Clonazepam (Clonazepam 0.5 Mg Tablet) 0.5 mg PO BID PRN PRN Reason: anxiety Docusate Sodium (Docusate Sodium 100 Mg Capsule) 100 mg PO DAILY [facility] Last Admin: 02/05/22 10:58 Dose: 100 mg Documented By: LIZ Enoxaparin Sodium (Enoxaparin Sodium 40 Mg/0.4 Ml Syringe) 40 mg SUBCUT Q24H [facility] Last Admin: 02/04/22 16:22 Dose: 40 mg Documented By: MAGY Fluoxetine HCl (Fluoxetine Hcl 20 Mg Capsule) 60 mg PO DAILY [facility] Last Admin: 02/05/22 10:57 Dose: 60 mg Documented By: LIZ Gabapentin (Gabapentin 400 Mg Capsule) 800 mg PO TID [facility] Last Admin: 02/05/22 10:57 Dose: 800 mg Documented By: LIZ Ceftriaxone Sodium 1 gm/ (Sodium Chloride) 50 mls @ 100 mls/hr IV Q24H [facility] Last Infusion: 02/04/22 17:29 Dose: 0 mls/hr Documented By: MAGY Levothyroxine Sodium (Levothyroxine Sodium 112 Mcg Tablet) 112 mcg PO DAILY@0600 [facility] Last Admin: 02/05/22 06:23 Dose: 112 mcg Documented By: MARTIN Levothyroxine Sodium (Levothyroxine Sodium 25 Mcg Tablet) 25 mcg PO DAILY@0600 [facility] Last Admin: 02/05/22 06:23 Dose: 25 mcg Documented By: MARTIN Loratadine (Loratadine 10 Mg Tablet) 10 mg PO DAILY [facility] Last Admin: 02/05/22 10:58 Dose: 10 mg Documented By: LIZ Melatonin (Melatonin 3 Mg Tablet) 6 mg PO BEDTIME PRN PRN Reason: insomnia Metronidazole (Metronidazole 0.75 % Gel 45 Gm Tube) 1 appl TOPICAL BEDTIME [facility] Last Admin: 02/04/22 20:10 Dose: Not Given Documented By: DONELL Non-Admin Reason: Patient Refused Multivitamins/Vitamin C (Multivitamin Tablet) 1 tab PO DAILY [facility] Last Admin: 02/05/22 10:58 Dose: 1 tab Documented By: LIZ Naloxone HCl (Naloxone Hcl 0.4 Mg/Ml Vial) 0.2 mg IVPUSH Q2M PRN PRN Reason: Excessive sedation or RR < 8 Omeprazole (Omeprazole 40 Mg Capsule.Dr) 40 mg PO DAILY@0630 [facility] Last Admin: 02/05/22 06:23 Dose: 40 mg Documented By: MARTIN Ondansetron HCl (Ondansetron Hcl 4 Mg/2 Ml Vial) 4 mg IVPUSH Q8H PRN PRN Reason: Nausea and Vomiting Last Admin: 01/31/22 05:31 Dose: 4 mg Documented By: BRAVO Pharmacy Consult (Consult Rx Perform Med Rec) 1 each MISCELLANE ONCE PRN PRN Reason: Consult order Polyethylene Glycol (Polyethylene Glycol 3350 17 Gm Powd.Pack) 17 gm PO DAILY [facility] Last Admin: 02/05/22 11:04 Dose: Not Given Documented By: LIZ Non-Admin Reason: Patient Refused Quetiapine Fumarate (Quetiapine Fumarate 400 Mg Tablet) 400 mg PO BEDTIME [facility] Last Admin: 02/04/22 20:06 Dose: 400 mg Documented By: DONELL Quetiapine Fumarate (Quetiapine Fumarate 100 Mg Tablet) 100 mg PO BID@0800,1300 [facility] Last Admin: 02/05/22 13:59 Dose: 100 mg Documented By: MANAS Sodium Chloride (0.9 % Sodium Chloride Flush 3 Ml Syringe) 3 ml IVFLUSH QSHIFT [facility] Last Admin: 02/05/22 11:04 Dose: 3 ml Documented By: LIZ Tramadol HCl (Tramadol Hcl 50 Mg Tablet) 100 mg PO Q4H PRN PRN Reason: moderate pain Last Admin: 02/05/22 13:53 Dose: 100 mg Documented By: MANAS Valacyclovir HCl (Valacyclovir Hcl 1,000 Mg Tablet) 1,000 mg PO DAILY [facility] Last Admin: 02/05/22 10:58 Dose: 1,000 mg Documented By: LIZ Vitamin D (Cholecalciferol (Vitamin D3) 25 Mcg Tablet) 25 mcg PO DAILY [facility] Last Admin: 02/05/22 10:58 Dose: 25 mcg Documented By: LIZ Labs CBC & Chem 7: 02/04/22 05:51 02/05/22 06:27 Labs: Laboratory Results - last 24 hr 02/05/22 02/05/22 06:27 12:32 Anion Gap 17 Estim Creat Clear Calc 140.0 Estimated GFR > 60 Random Glucose 75 Calcium 7.9 L COVID-19 ([facility]) Negative COVID-19 Clin Com See Note Assessment and Plan (1) Hypokalemia: Status: Acute (2) Pneumonia: Status: Acute (3) Femoral distal fracture: Status: Acute (4) Closed trimalleolar fracture: Status: Acute Plan hospital 61yo?F with hypothyroidism, chronic leukopenia, MARLENY not on CPAP, depression, and bilateral knee replacements who fell and sustained a left trimalleolar intra-articular fracture with tibiotalar dislocation [reduced] and a right transverse periprosthetic fracture of the distal femur. now complicated by sepsis and acute hypoxic respiratory failure as well as blood loss anemia acute hypoxic respiratory failure, resolved sepsis 02/01/22, resolved due to right sided pneumonia continue antibiotics day 5 bcx negative Oxygen wean down to room air Negative doppler for DVT no fever for the last 24 hours hypokalemia potassium of 3.4 replace and monitor ankle fracture knee fracture operative fixation 01/30/22, Oxycodone for pain contrl orthopedic team following acute blood loss anemia due to fracture hgb improved to about 8 after transfusion 02/01/22, stable depression/anxiety patient requesting psychiatry eval continue buproprion, seroquel, fluexetine hypothyroid synthroid # VTE ppx LMWH postoperatively x28d reason for continued hospitalization: pending placement. Quality Stroke Does the patient have a stroke diagnosis?: No VTE Prior VTE?: No VTE Risk Level:: Medical - moderate - high VTE Device Contraindication: N/A - Device Ordered VTE Drug Contraindication: N/A - Med Ordered
--- NOTE | 2022-02-05 15:35 | MHC.CM.PN ---
Patient will dc to [facility] tomorrow at 10 AM, via [facility].
[2022-02-05] MEDS: Enoxaparin Sodium 40 MG/0.4 ML SYRINGE SUBCUT (18:48)
[2022-02-05] MEDS: cefTRIAXone sodium 1 GM in 0.9 % Sodium Chloride 50 ML IV (18:49)
[2022-02-05] MEDS: QUEtiapine Fumarate 400 MG TABLET PO (22:50)
[2022-02-05] MEDS: metroNIDAZOLE 0.75 % Gel 45 GM TUBE 1 APPL TOPICAL (22:51)
[2022-02-06] MEDS: 0.9 % Sodium Chloride Flush 3 ML SYRINGE IVFLUSH ×2 (03:16→09:43)
[2022-02-06] MEDS: oxyCODONE HCl Immed Release 5 MG TABLET 10 MG PO (05:41)
[2022-02-06] MEDS: Levothyroxine Sodium 112 MCG TABLET PO (05:42)
[2022-02-06] MEDS: Omeprazole 40 MG CAPSULE.DR PO (05:42)
[2022-02-06] MEDS: Levothyroxine Sodium 25 MCG TABLET PO (05:42)
--- NOTE | 2022-02-06 07:50 | MHC.CM.PN ---
IMM addressed with Patient at bedside yesterday and original was given to Patient and a copy was placed on the chart.Patient is aware of and in agreement with the dc plan.
[2022-02-06 09:24] VITALS: BP 98/63; PULSE 77; O2SAT 95
[2022-02-06] MEDS: QUEtiapine Fumarate 100 MG TABLET PO (09:38)
[2022-02-06] MEDS: Docusate Sodium 100 MG CAPSULE PO (09:38)
[2022-02-06] MEDS: Loratadine 10 MG TABLET PO (09:38)
[2022-02-06] MEDS: Gabapentin 400 MG CAPSULE 800 MG PO (09:38)
[2022-02-06] MEDS: Multivitamin TABLET 1 TAB PO (09:38)
[2022-02-06] MEDS: valACYclovir HCL 1,000 MG TABLET 1000 MG PO (09:38)
[2022-02-06] MEDS: calcium polycarbophiL TABLET 1 TAB PO (09:38)
[2022-02-06] MEDS: FLUoxetine HCl 20 MG CAPSULE 60 MG PO (09:38)
[2022-02-06] MEDS: Cholecalciferol (Vitamin D3) 25 MCG TABLET PO (09:39)
[2022-02-06] MEDS: traMADoL HCL 50 MG TABLET 100 MG PO (09:41)
[2022-02-06] MEDS: Ascorbic Acid 250 MG TABLET PO (09:43)
--- NOTE | 2022-02-06 10:06 | P.DS_ITS ---
DS: Providers Provider Date of Service: 02/06/22 Date of admission: 01/28/22 10:47 Primary care physician: Brianda Grant MD Consults: 01/28/22 10:46 Consult to Orthopedics Routine Consulting Provider: Sinan Gibbs Reason for consultation: trimal fx,periprosth fx 02/02/22 11:00 Consult to Psychiatry Routine Consulting Provider: Psych Covering Reason for consultation: patient requesting eval for depression DS: Diagnosis Discharge Diagnosis (1) Hypokalemia: Status: Acute (2) Pneumonia: Status: Acute (3) Femoral distal fracture: Status: Acute (4) Closed trimalleolar fracture: Status: Acute (5) Sepsis: Status: Acute (6) Fall: Status: Acute DS: Summary Hospital Course Hospital Course: Admission note HPI 61yo F with hypothyroidism, chronic leukopenia, MARLENY not on CPAP, depression, and bilateral knee replacements who took quetiapine last night for insomnia.? She became very hot and went to her kitchen to turn off her air conditioning.? She tripped and lost her balance and fell, twisting her left ankle and falling on her right knee.? No head trauma.? No LOC.? She developed severe pain of the left ankle and right knee and called 911.? She was given IN fentanyl by the paramedics and transported to the hospital, where her ankle was noted to be obviously deformed.? In the ED, she was found to have a left ankle trimalleolar intra-articular fracture with tibiotalar dislocation, along with a right knee transverse, posteriorly angulated periprosthetic fracture of the distal femoral metadiaphysis.? The ankle was reduced and splinted under ketamine sedation.? Orthopedics was consulted and operative fixation is planned.? She's had multiple surgeries as detailed below without any perioperative cardiopulmonary complications.? She is able to climb 2 flights of stairs without angina or dyspnea. Hospital course The patient was admitted to the hospital after sustaining a fall. Found to have ?left trimalleolar intra-articular fracture with tibiotalar dislocation [ reduced] and a right transverse periprosthetic fracture of the distal femur. evaluated by Orthopedic team who did closed fixation for the fracture. The patient required morphine [employer] for pain control after the surgery but her pain medication requirement decreased oxycodone and tramadol as needed. She was evaluated by physical therapy team who recommended to continue therapy as outpatient. Was noticed to have acute blood loss anemia due to the fracture requiring 1 unit of blood transfusion maintaining her hemoglobin level after that is no evidence of bleeding. Developed acute hypoxic respiratory failure and noticed to sepsis within evidence of right-sided pneumonia on the x-ray treated with IV antibiotics as blood cultures remain negative. Continue Lovenox for total of 6 weeks Continue antibiotic for pneumonia To follow-up with orthopedic office in 7-10 days. Time Spent with Patient Time attestation: Total time spent providing and/or coordinating discharge services: Discharge coordination time: Greater than 30 minutes Quality: Safe Use of Opioids Does Pt have an Active Cancer Diagnosis on the Problem List?: No Quality: Stroke Does the patient have a stroke diagnosis?: No Physical Exam Vital Signs: Vital Signs: Last Vital Signs Temp 97.4 F 02/05/22 23:32 Pulse 77 02/06/22 09:24 Resp 18 02/05/22 23:32 BP 98/63 02/06/22 09:24 Pulse Ox 95 02/06/22 09:24 O2 Del Method 02/05/22 23:32 O2 Flow Rate 2 02/04/22 07:37 FiO2 98 02/02/22 06:41 Oxygen Flow Rate 3 02/02/22 06:41 BMI result Body Mass Index 35.1 Const: Other: Constitutional : Alert, oriented, not in distress Neck : Normal inspection, Supple Cardiovascular : RRR, no JVP, no lower extremity edema Respiratory : fair bilateral air entry, no crackles, wheezes or rhonchi Gastrointestinal: soft, lax, Normal bowel sounds, Non tender Skin : Warm, Dry musculoskeletal: Left ankle splint is clean dry and intact.? Able to move all digits.? Sensation reportedly intact., Right distal femur Aquacel is clean dry and intact.? Patient is able to move all digits.? Sensation reportedly intact. Neurological : Alert & oriented x3, No focal deficit , CN 2-12 within normal DS: Data Data Completed and Pending Labs on day of discharge: Laboratory Results - last 24 hr 02/05/22 12:32 COVID-19 ([facility]) Negative COVID-19 Clin Com See Note Preliminary micro results at discharge 02/01/22 15:50 Blood Culture - Preliminary Blood - Venous No growth after 48 hours. Imaging Chest x-ray: Radiologist's impression: ITS Impressions Ankle X-Ray 01/28/22 01:34 IMPRESSION: Left ankle: *Trimalleolar intra-articular fracture with tibiotalar dislocation. Right knee: *Transverse, posteriorly angulated periprosthetic fracture of the distal femoral metadiaphysis. *Status post total right knee arthroplasty. Right hip: *Suboptimal visualization of right hip. If clinical concern is present regarding possible acute injury, consider repeat imaging or CT as clinically indicated. *No acute abnormalities identified. Marked right hip osteoarthritis. Hip X-Ray 01/28/22 01:34 IMPRESSION: Left ankle: *Trimalleolar intra-articular fracture with tibiotalar dislocation. Right knee: *Transverse, posteriorly angulated periprosthetic fracture of the distal femoral metadiaphysis. *Status post total right knee arthroplasty. Right hip: *Suboptimal visualization of right hip. If clinical concern is present regarding possible acute injury, consider repeat imaging or CT as clinically indicated. *No acute abnormalities identified. Marked right hip osteoarthritis. Knee X-Ray 01/28/22 01:34 IMPRESSION: Left ankle: *Trimalleolar intra-articular fracture with tibiotalar dislocation. Right knee: *Transverse, posteriorly angulated periprosthetic fracture of the distal femoral metadiaphysis. *Status post total right knee arthroplasty. Right hip: *Suboptimal visualization of right hip. If clinical concern is present regarding possible acute injury, consider repeat imaging or CT as clinically indicated. *No acute abnormalities identified. Marked right hip osteoarthritis. Ankle X-Ray 01/28/22 02:50 IMPRESSION: *Trimalleolar fracture with interval reduction in tibiotalar dislocation compared with 01/28/2022 1:08 AM. Guidance Fluoroscopy 01/30/22 14:30 IMPRESSION: As above Guidance Fluoroscopy 01/30/22 17:00 IMPRESSION: As above Chest X-Ray 02/01/22 15:48 IMPRESSION: Low lung volumes. Question right-sided infiltrates. Venous Duplex 02/03/22 13:30 IMPRESSION: No DVT demonstrated in the bilateral lower extremity. Discharge Plan Discharge Patient Disposition: Xfer Inpatient Rehab Fac Discharge Diagnosis: Closed trimalleolar fracture Fall Sepsis Pneumonia Referrals: [facility] [Outside] - 1 Week Brianda Cotton MD [Primary Care Provider] - 1 Week Discharge Medications: New oxycodone 5 mg Tablet 5 mg PO Q6H PRN (Reason: Pain, Severe (Pain Scale 7-10)) Qty: 20 0RF Rx Instructions: Partial Fill upon patient request. enoxaparin 40 mg/0.4 mL Syringe 40 mg subcut Q24H 40 Days Qty: 16 0RF levofloxacin 500 mg tablet 500 mg PO DAILY Qty: 4 0RF Continued meloxicam 15 mg tablet 15 mg PO DAILY 90 Days Qty: 90 0RF valacyclovir 1 gram tablet 1,000 mg PO DAILY 90 Days Qty: 90 3RF omeprazole 20 mg capsule,delayed release(DR/EC) 40 mg PO DAILY 90 Days Qty: 180 1RF loratadine [Allergy Relief (loratadine)] 10 mg tablet 10 mg PO DAILY 90 Days Qty: 90 1RF acetaminophen 500 mg tablet 1,000 mg PO Q6H PRN (Reason: pain) 30 Days Qty: 240 8RF gabapentin 800 mg tablet 800 mg PO TID 90 Days Qty: 270 1RF tramadol 50 mg tablet 100 mg PO Q4H PRN (Reason: pain) 30 Days Qty: 220 0RF Rx Instructions: Take 1 to 2 tablets every 4 hours prn levothyroxine 137 mcg tablet 137 mcg PO DAILY 90 Days Qty: 90 0RF albuterol sulfate [Ventolin HFA] 90 mcg/actuation HFA aerosol inhaler 2 puff inhalation Q6H PRN (Reason: shortness of breath or wheezing) 30 Days Qty: 6.7 2RF ascorbic acid (vitamin C) 100 mg Tablet 100 mg PO DAILY cholecalciferol (vitamin D3) [Vitamin D3] 25 mcg (1,000 unit) Tablet 25 mcg PO DAILY omega-3 fatty acids [Fish Oil Concentrate] 1,000 mg capsule 1,000 mg PO DAILY calcium carbonate [Calcium 500] 500 mg calcium (1,250 mg) tablet 500 mg PO DAILY multivitamin Tablet 1 tab PO DAILY docusate sodium [Stool Softener] 100 mg capsule 100 mg PO DAILY glucosamine HCl 500 mg tablet 500 mg PO DAILY Rx Instructions: administer with a meal clonazepam 0.5 mg tablet 0.5 mg PO BID PRN (Reason: Anxiety) melatonin 5 mg tablet 5 mg PO BEDTIME metronidazole 0.75 % gel 1 appl topical BEDTIME fluoxetine 20 mg capsule 60 mg PO QAM bupropion HCl 75 mg tablet 75 mg PO BEDTIME quetiapine 300 mg tablet 600 mg PO BEDTIME Citrucel 500 mg tablet 500 mg PO BID Qty: 60 5RF polyethylene glycol 3350 [Miralax] 17 gram powder in packet 17 g PO DAILY Qty: 30 5RF Discharge Orders: Discharge Order (Routine); Ordered 02/06/22 Ordered By: Rajesh Mills Diet: Advance to usual diet Activity on Discharge: As tolerated Stand Alone Forms: Patient Portal Discharge page Care Plan Goals: Left ankle: Keep splint clean, dry, and intact Elevate throughout the day Do not bathe or shower--keep splint dry Right distal femur: Gait training, strengthening, ADLs Keep dressing clean, dry and intact-no showering or tub baths Continue Lovenox for dvt ppx x6 weeks Call [facility] orthopedics with any questions or concerns. Follow up with orthopedics in 7-10 days post op Health Concerns: Read below Plan of Treatment: Read below Assessment: You were admitted to the hospital after sustaining a fall and found to have fracture in your left lower extremity. Had surgical fixation of the fracture as you were followed by the Orthopedic team who Will follow-up with you as outpatient. You were noticed to have difficulty breathing. X-ray showed an evidence of pneumonia. Treated with IV antibiotics with good response as you were weaned off the oxygen. Continue Lovenox for total of 6 weeks Continue antibiotic for pneumonia To follow-up with orthopedic office in 7-10 days.
--- NOTE | 2022-02-13 13:32 | P.OP_ITS ---
Operative Note Operative Note Date of Service: 01/30/22 Narrative: Date of Service: 01/30/22 Pre-op diagnosis: right? periprosthetic distal femur fracture left ankle bimalleolar fracture Post-op diagnosis: same Procedure: 1) Retrograde IMN Right femur 2) revision Right knee arthroplasty ( liner exchange only) 3) Left ankle bimalleolar ORIF Implants: [place] ankle lateral locking plate and 3 cannulated screws medially [place] alpha T2 200 mm retrograde nail with 4 distal and 2 procimal interlocking screws [place] Triathalon 5x16 TS PE insert Surgeon: Sinan Gibbs MD Anesthesia: GETA and local Was an Pecan Gatherer used for this Procedure?: Yes Pecan Gatherer: Tosha Tang Estimated blood loss (mL): 350 IV fluids (mL): 1,500 Pathology: none sent Condition: stable Disposition: PACU Procedure in detail: I began by exsanguinating the tourniquet for the left lower extremity. [facility] poster[facility] incision was made over the fibula and full-thickness flaps were developed. The fracture was identified and cleaned with combination of curette and run sure and a lobster claw tenaculum was used to reduce the oblique fracture. One interfragmentary screw was placed perpendicular to the fracture and then a 6 hole distal fibular locking plate was applied with 4 distal locking and 4 proximal nonlocking screws. I was satisfied with reduction and copious irrigation was performed and a layered closure was performed with lino on the skin. I then turned my attention to the medial malleolus. A curvilinear incision was made over the fracture and this was reduced with a sharp tenaculum. Two partially threaded K-wires were then placed from distal to proximal and medial to lateral perpendicular to the fracture site. These were then overdrilled and 240 mm partially threaded cancellous screws were placed. Again I was satisfied with the fracture reduction and hardware placement using biplanar fluoroscopy. The syndesmosis was then tested and found to be stable. Copious irrigation was performed over the medial incision and this was closed with absorbable suture and skin glue. Patient was placed into sterile dressings and a well-padded posterior splint and the tourniquet was let down. I then turned my attention to the right femur. The incision was made through the prior total knee incision. A medial parapatellar arthrotomy was performed and the patella was translated out of the way. Was able to flex the knee up but at this required removal of the insert. This was done using a sagittal saw then the post was removed and the polyethylene insert was removed. I then used the awl to penetrate the femoral cortex and placed a guidewire from distal to prox imal up into the femoral shaft. This was a comminuted fracture but I was satisfied with the alignment on the AP and lateral projections. I placed 4 distal locking screws through the lito and, using perfect [place] technique, placed 2 lateral to medial proximal interlocking screws. At this point I was extremely satisfied with the stability and alignment and I returned to the knee arthroplasty. The prior insert was 13 and this seemed to allow the knee to go into hyperextension so a 16 mm insert was placed. This was at TS insert and the post was then mallet it in. I then took the knee through range of motion and I was satisfied with the stability and range. Copious irrigation was then performed and Quill suture was used to close the arthrotomy and absorbable sutures and lino were then placed on the skin. Patient was placed into a sterile dressing. She was then extubated brought to recovery room in stable condition. There were no known complications.
== END 2022-02-06 11:20 | DRG 463 ==
LOC: HO.ED 09:16 → HO.EDOVER 10:51 → HO.IMC 23:37
PROVIDERS: Internal Medicine; Orthopaedic Surgery; Admitting Provider Family Medicine; Emergency Provider Emergency Medicine Emergency Medical Services; PCP Internal Medicine; Visit Provider Student in an Organized Health Care Education/Training Program
PROC: 0SPC09Z Removal of Liner from Right Knee Joint, Open Approach (ICD-10-PCS; principal; 2022-01-30 13:00)
PROC: 0SPC09Z Removal of Liner from Right Knee Joint, Open Approach (ICD-10-PCS; 2022-01-30 13:00)
DX: S82.852A Displaced trimalleolar fracture of left lower leg, initial encounter for closed fracture (principal); S72.021A Displaced fracture of epiphysis (separation) (upper) of right femur, initial encounter for closed fracture; A41.9 Sepsis, unspecified organism; J96.01 Acute respiratory failure with hypoxia; M97.11XA Periprosthetic fracture around internal prosthetic right knee joint, initial encounter; D62 Acute posthemorrhagic anemia; F33.1 Major depressive disorder, recurrent, moderate; W18.30XA Fall on same level, unspecified, initial encounter; G47.33 Obstructive sleep apnea (adult) (pediatric); Y92.000 Kitchen of unspecified non-institutional (private) residence as the place of occurrence of the external cause; E87.6 Hypokalemia; E03.9 Hypothyroidism, unspecified; D72.819 Decreased white blood cell count, unspecified; F41.9 Anxiety disorder, unspecified; I95.2 Hypotension due to drugs; T40.605A Adverse effect of unspecified narcotics, initial encounter; K21.9 Gastro-esophageal reflux disease without esophagitis; Z96.653 Presence of artificial knee joint, bilateral; Z20.822 Contact with and (suspected) exposure to COVID-19; Z87.891 Personal history of nicotine dependence; Z88.0 Allergy status to penicillin; Z88.8 Allergy status to other drugs, medicaments and biological substances; Z79.899 Other long term (current) drug therapy
CPT/HCPCS: 36415; 71045; 73501; 73562; 73600; 73610; 80048; 80053; 81001; 81003; 83605; 83690; 83735; 85025; 85027; 86850; 86900; 86901; 86923; 87040; 87635; 93005; 93970; 96374; 96375; 96376; 97110; 97140; 97162; 97167; 97530; 99285; C1713; C1758; C1769; C1776; J0690; J0696; J1100; J1170; J1650; J2250; J2270; J2370; J2405; J3010; P9016

== ENCOUNTER 2022-03-13 09:34 | Outpatient (REF) | payer OTHER, SELFPAY ==
--- NOTE | ~2022-03-13 | XR_ITS ---
EXAMINATION: XR ANKLE, LEFT CLINICAL INFORMATION: Pain. COMPARISON: Radiographs dated 01/28/2022. TECHNIQUE: AP, lateral, and mortise views of the left ankle. FINDINGS: Bony alignment and mineralization are normal. The ankle mortise is intact. Previously seen trimalleolar fracture lines appear radiographically healed. There is intact orthopedic hardware, including a fixator plate and fixator screws applied to the lateral malleolus and fixator screws applied to the medial and posterior malleoli. No hardware failure or loosening is seen. There is no significant joint effusion. Boehler's angle is normal. There is no calcaneal spur. No soft tissue gas or foreign body is seen. XR/XR ankle LT min 3V IMPRESSION: There is interim radiographic healing of trimalleolar left ankle fractures. The ankle mortise is intact. No hardware failure or loosening is seen.
--- NOTE | ~2022-03-13 | XR_ITS ---
EXAMINATION: XR KNEE, RIGHT XR FEMUR, RIGHT CLINICAL INFORMATION: Pain. COMPARISON: Radiographs dated 01/28/2022 and 12/06/2017. TECHNIQUE: AP and lateral views of the right knee. AP and lateral views of the right femur were obtained. FINDINGS: Prosthetic components of the right total knee arthroplasty are appropriately aligned. Periprosthetic fractures are well aligned, with good callus formation. No hardware failure or loosening is seen. No component migration. There is no significant joint effusion. There is moderately severe narrowing of the right acetabular joint space. There is peripheral osteophyte formation of the articular surfaces of the right hip. The right femoral head remains smooth. There is a large osteophyte of the lateral margin of the right acetabular roof, with fracture fragment. No foreign body or soft tissue gas is seen. XR/XR femur RT 2V IMPRESSION: 1. Appropriate alignment of the right total knee arthroplasty without evidence of complications. 2. A healing, well aligned fracture is seen of the distal right fibular metaphysis. There is good callus formation. 3. A mildly displaced avulsion fracture fragment is seen of a large peripheral osteophyte of the right acetabular roof.
--- NOTE | ~2022-03-13 | XR_ITS ---
EXAMINATION: XR KNEE, RIGHT XR FEMUR, RIGHT CLINICAL INFORMATION: Pain. COMPARISON: Radiographs dated 01/28/2022 and 12/06/2017. TECHNIQUE: AP and lateral views of the right knee. AP and lateral views of the right femur were obtained. FINDINGS: Prosthetic components of the right total knee arthroplasty are appropriately aligned. Periprosthetic fractures are well aligned, with good callus formation. No hardware failure or loosening is seen. No component migration. There is no significant joint effusion. There is moderately severe narrowing of the right acetabular joint space. There is peripheral osteophyte formation of the articular surfaces of the right hip. The right femoral head remains smooth. There is a large osteophyte of the lateral margin of the right acetabular roof, with fracture fragment. No foreign body or soft tissue gas is seen. XR/XR knee RT 2V IMPRESSION: 1. Appropriate alignment of the right total knee arthroplasty without evidence of complications. 2. A healing, well aligned fracture is seen of the distal right fibular metaphysis. There is good callus formation. 3. A mildly displaced avulsion fracture fragment is seen of a large peripheral osteophyte of the right acetabular roof.
--- NOTE | 2023-03-03 17:12 | ED.LOWEXIN ---
HPI - Extremity Injury (Lower) Related Data Home Medications Medication Instructions Recorded Confirmed calcium carbonate 500 mg calcium 500 mg PO DAILY 10/01/20 02/11/23 (1,250 mg) tablet (Calcium 500) glucosamine HCl 500 mg tablet 500 mg PO DAILY 10/01/20 02/11/23 multivitamin 1 tab PO DAILY 10/01/20 02/11/23 omega-3 fatty acids 1,000 mg 1,000 mg PO DAILY 10/01/20 02/11/23 capsule (Fish Oil Concentrate) clonazepam 0.5 mg tablet 0.5 mg PO BID PRN Anxiety 04/04/21 02/11/23 melatonin 5 mg tablet 5 mg PO BEDTIME 04/04/21 02/11/23 metronidazole 0.75 % topical gel 1 appl topical BEDTIME 04/04/21 02/11/23 ascorbic acid (vitamin C) 100 mg 100 mg PO DAILY 01/28/22 02/11/23 tablet cholecalciferol (vitamin D3) 25 25 mcg PO DAILY 01/28/22 02/11/23 mcg (1,000 unit) tablet (Vitamin D3) venlafaxine 37.5 mg tablet 37.5 mg PO DAILY 10/06/22 02/11/23 Previous Rx's Medication Instructions Recorded quetiapine 400 mg tablet 400 mg PO BID 90 days #180 tabs 02/19/22 polyethylene glycol 3350 17 gram 17 g PO DAILY #30 ea 05/12/22 oral powder packet (Miralax) Shoe lift #1 ea 05/15/22 loratadine 10 mg tablet (Allergy 10 mg PO DAILY 90 days #90 tabs 08/10/22 Relief (loratadine)) acetaminophen 500 mg tablet 1,000 mg PO Q6H PRN pain 30 days 08/13/22 #240 tabs gabapentin 800 mg tablet 800 mg PO TID 90 days #270 tabs 12/07/22 methylcellulose (laxative) 500 mg 500 mg PO BID #60 tabs 12/08/22 tablet (Citrucel) valacyclovir 1 gram tablet 1,000 mg PO DAILY 90 days #90 tabs 01/10/23 ferrous sulfate 325 mg (65 mg 325 mg PO DAILY 90 days #90 tabs 02/04/23 iron) tablet levothyroxine 175 mcg tablet 175 mcg PO DAILY 90 days #90 tabs 02/04/23 tramadol 50 mg tablet 100 mg PO Q4H PRN pain 30 days 02/05/23 #340 tabs peg-electrolyte solution 420 gram 240 ml PO ONCE PRN laxative effect 02/11/23 oral solution 1 day #4,000 mL polyethylene glycol 3350 17 17 g PO DAILY 30 days #510 grams 02/11/23 gram/dose oral powder (Miralax) albuterol sulfate 90 mcg/actuation 2 puff inhalation Q6H PRN 03/03/23 aerosol inhaler (Ventolin HFA) shortness of breath or wheezing 30 days #6.7 grams omeprazole 20 mg capsule,delayed 40 mg PO DAILY 90 days #180 caps 03/03/23 release Allergies Allergy/AdvReac Type Severity Reaction Status Date / Time amoxicillin [Augmentin] Allergy Intermediate rash Verified 02/04/23 16:40 cat dander Allergy Intermediate NASAL Verified 02/04/23 16:40 SYMPTOMS clavulanic acid [Augmentin] Allergy Intermediate rash Verified 02/04/23 16:40 trazodone [TRAZODONE] Allergy Intermediate I CAN'T Verified 02/04/23 16:40 BREATHE RIGHT , shortness of breath PMFSH Past Medical History Medical History Anemia Arthritis BMI 34.0-34.9,adult Depression GERD (gastroesophageal reflux disease) Hematuria History of small bowel obstruction Hypothyroid IBS (irritable bowel syndrome) Leukopenia Liver cyst Lumbar degenerative disc disease Migraines Moderate recurrent major depression Neck pain Obesity (BMI 30-39.9) Sleep apnea Umbilical hernia Surgical History (Updated 02/11/23 @ 14:26 by Becky Loza PA-C) H/O hernia repair H/O knee surgery H/O tubal ligation H/O: hysterectomy History of ankle surgery History of back surgery History of bilateral knee replacement History of bladder surgery History of delivery History of endometrial ablation History of esophagogastroduodenoscopy (EGD) History of hand surgery History of surgery History of surgery History of surgical removal of skin lesion Hx of colonoscopy (~02/11/23) Hx of foot surgery Family History Family History Father FH: prostate cancer Mother Breast cancer Bladder cancer Social History Social History Household Members: None Housing: House 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) Alcohol intake: never Patient Tobacco Use Status: Former Tobacco user Quit Date: 20 yrs ago Tobacco use type: Cigarette Years Smoked: 25 e-Cigarette/Vaping Use: Never Used Second Hand Smoke Exposure: No service: No Current occupational status: unemployed and disabled Cognitive needs: No Hearing needs: No Vision needs: No Procedures Procedure Narrative Procedure Narrative: Addendum to 01/28/2022 02:21 Visit for Left Ankle Injury Procedure sedation for reduction of left ankle trimalleolar fracture: The exact procedure time was 30 minutes Signature The printed signature below attests that I have reviewed the entire document and that I have signed the entire document. Greg Garcia MD Discharge Plan Discharge Patient Disposition: Home, Self-Care Discharge Medications: No Action quetiapine 400 mg tablet 400 mg PO BID 90 Days Qty: 180 0RF polyethylene glycol 3350 [Miralax] 17 gram powder in packet 17 g PO DAILY Qty: 30 5RF (DME) Shoe lift See Rx Instructions .Route .MEDSUPPLY Qty: 1 0RF Rx Instructions: As directed loratadine [Allergy Relief (loratadine)] 10 mg tablet 10 mg PO DAILY 90 Days Qty: 90 1RF acetaminophen 500 mg tablet 1,000 mg PO Q6H PRN (Reason: pain) 30 Days Qty: 240 8RF gabapentin 800 mg tablet 800 mg PO TID 90 Days Qty: 270 1RF Citrucel 500 mg tablet 500 mg PO BID Qty: 60 5RF valacyclovir 1 gram tablet 1,000 mg PO DAILY 90 Days Qty: 90 3RF tramadol 50 mg tablet 100 mg PO Q4H PRN (Reason: pain) 30 Days Qty: 340 0RF Rx Instructions: Take 2 tablets every 4 hours prn albuterol sulfate [Ventolin HFA] 90 mcg/actuation HFA aerosol inhaler 2 puff inhalation Q6H PRN (Reason: shortness of breath or wheezing) 30 Days Qty: 6.7 2RF omeprazole 20 mg capsule,delayed release(DR/EC) 40 mg PO DAILY 90 Days Qty: 180 1RF ascorbic acid (vitamin C) 100 mg Tablet 100 mg PO DAILY cholecalciferol (vitamin D3) [Vitamin D3] 25 mcg (1,000 unit) Tablet 25 mcg PO DAILY venlafaxine 37.5 mg tablet 37.5 mg PO DAILY ferrous sulfate 325 mg (65 mg iron) tablet 325 mg PO DAILY 90 Days Qty: 90 0RF levothyroxine 175 mcg tablet 175 mcg PO DAILY 90 Days Qty: 90 1RF omega-3 fatty acids [Fish Oil Concentrate] 1,000 mg capsule 1,000 mg PO DAILY calcium carbonate [Calcium 500] 500 mg calcium (1,250 mg) tablet 500 mg PO DAILY multivitamin Tablet 1 tab PO DAILY glucosamine HCl 500 mg tablet 500 mg PO DAILY Rx Instructions: administer with a meal clonazepam 0.5 mg tablet 0.5 mg PO BID PRN (Reason: Anxiety) melatonin 5 mg tablet 5 mg PO BEDTIME metronidazole 0.75 % gel 1 appl topical BEDTIME peg-electrolyte soln 420 gram recon soln 240 ml PO ONCE PRN (Reason: laxative effect) 1 Days Qty: 4000 0RF Rx Instructions: Start at 6:00pm the evening before procedure, drink one 8oz glass every 15 minutes until complete polyethylene glycol 3350 [Miralax] 17 gram/dose powder 17 g PO DAILY 30 Days Qty: 510 6RF Discharge Date/Time: 03/13/22 09:35
== END 2022-03-13 09:35 | disposition home or self-care (01) ==
LOC: HO.HOSX 09:34
PROVIDERS: Visit Provider Orthopaedic Surgery
DX: M25.572 Pain in left ankle and joints of left foot (principal); M25.561 Pain in right knee; S72.91XA Unspecified fracture of right femur, initial encounter for closed fracture; S82.842A Displaced bimalleolar fracture of left lower leg, initial encounter for closed fracture; X58.XXXA Exposure to other specified factors, initial encounter; Y93.9 Activity, unspecified; Y92.9 Unspecified place or not applicable; Y99.8 Other external cause status
CPT/HCPCS: 73552; 73560; 73610

== ENCOUNTER 2022-04-24 08:55 | Outpatient (REF) | payer OTHER, SELFPAY ==
--- NOTE | ~2022-04-24 | XR_ITS ---
EXAMINATION: XR ANKLE, LEFT CLINICAL INFORMATION: Left ankle pain. COMPARISON: Radiographs left ankle 03/13/2022, 01/28/2022 TECHNIQUE: AP, lateral, and mortise views of the left ankle. FINDINGS: Lateral distal fibular plate and screws and 3 screws medial malleolus are intact. Fracture fragments are in near-anatomic alignment. There is no dislocation or destructive process. No osteolysis. There is moderate posterior calcaneal spur. Retrocalcaneal recess is preserved. Stable irregularity distal anterior tibia. The foot again shows hardware first metatarsal with foreshortening and tapering erosions distal fifth metatarsal and some mild arthropathy MTP joints. XR/XR ankle LT min 3V IMPRESSION: -Ankle hardware intact. No osteolysis.
--- NOTE | ~2022-04-24 | XR_ITS ---
EXAMINATION: XR KNEES, STANDING AP XR KNEE, RIGHT CLINICAL INFORMATION: Knee pain, M25.569. COMPARISON: Radiographs right knee 03/13/2022, 01/28/2022, left knee 12/21/2014. TECHNIQUE: Standing AP view of both knees is performed along with 2 lateral views and axial patella view of the right knee. FINDINGS: Right: There is a hinged prosthesis right knee with long femoral stem similar to prior exam. The orthopedic hardware is intact. There is no acute fracture or dislocation. Axial view patella shows no lateralization or tilting. No abnormal lucency on AP view at the prosthesis bone interfaces. The lateral view shows mild lucency around the distal femoral stem and lower femoral screw around 2 mm on anterior and posterior sides. Suprapatellar effusion. There is maturing callus formation around the distal femoral fracture. Heterotopic bone is again present adjacent to posterior aspect distal femoral prosthesis. The tibial prosthesis is unremarkable. Left: There is a hinged knee arthroplasty with intact hardware and no fracture, dislocation, or osteolysis. XR/XR knee standing BI IMPRESSION: Right: -Prosthesis hardware intact. Maturing callus around distal femoral fracture. -No abnormal lucency at the prosthesis bone interface on AP view. There is some lucency perhaps 2 mm distal femoral prosthesis on lateral view. Left: -Knee arthroplasty with intact hardware. No osteolysis.
--- NOTE | ~2022-04-24 | XR_ITS ---
EXAMINATION: XR KNEES, STANDING AP XR KNEE, RIGHT CLINICAL INFORMATION: Knee pain, M25.569. COMPARISON: Radiographs right knee 03/13/2022, 01/28/2022, left knee 12/21/2014. TECHNIQUE: Standing AP view of both knees is performed along with 2 lateral views and axial patella view of the right knee. FINDINGS: Right: There is a hinged prosthesis right knee with long femoral stem similar to prior exam. The orthopedic hardware is intact. There is no acute fracture or dislocation. Axial view patella shows no lateralization or tilting. No abnormal lucency on AP view at the prosthesis bone interfaces. The lateral view shows mild lucency around the distal femoral stem and lower femoral screw around 2 mm on anterior and posterior sides. Suprapatellar effusion. There is maturing callus formation around the distal femoral fracture. Heterotopic bone is again present adjacent to posterior aspect distal femoral prosthesis. The tibial prosthesis is unremarkable. Left: There is a hinged knee arthroplasty with intact hardware and no fracture, dislocation, or osteolysis. XR/XR knee RT 2V IMPRESSION: Right: -Prosthesis hardware intact. Maturing callus around distal femoral fracture. -No abnormal lucency at the prosthesis bone interface on AP view. There is some lucency perhaps 2 mm distal femoral prosthesis on lateral view. Left: -Knee arthroplasty with intact hardware. No osteolysis.
== END 2022-04-24 08:56 | disposition home or self-care (01) ==
LOC: HO.HOSX 08:55
PROVIDERS: Visit Provider Orthopaedic Surgery
DX: M25.572 Pain in left ankle and joints of left foot (principal); M25.561 Pain in right knee
CPT/HCPCS: 73560; 73565; 73610

== ENCOUNTER 2022-05-06 14:22 | Outpatient (REF) | payer OTHER, SELFPAY ==
--- NOTE | ~2022-05-06 | MM_ITS ---
EXAMINATION: BONE DENSITOMETRY CLINICAL INDICATION: Unspecified fracture of right femur. COMPARISON: None (current study represents initial baseline exam). TECHNIQUE: Using a Expert DXA System (software version: 13.1) manufactured by [employer], dual-energy x-ray absorptiometry was performed of the lumbar spine and left hip. The images are of good technical quality. Summary results are attached. FINDINGS: AP SPINE L1-L3 (excluding L4): The data of L1-L4 has been changed to exclude the L4 vertebral body because mild degenerative changes at this level may cause overestimation of the lumbar spine density. BMD 1.189 g/cm2, Z-score 0.4, T-score 0.2, normal. LEFT FEMUR, NECK: BMD 1.234 g/cm2, Z-score 2.0, T-score 1.4, normal. LEFT FEMUR, TOTAL: BMD 1.123 g/cm2, Z-score 1.1, T-score 0.9, normal. IDENTIFIED RISK FACTORS: Recurrent falls, height loss, history of fracture (adult), anticonvulsant, menopause, hysterectomy. HISTORY OF FRACTURE: Femur/hip, ankle. MEDICATIONS: Calcium supplements or multivitamin, vitamin D. MM/XR DEXA axial skeleton IMPRESSION: 1. DIAGNOSIS: Normal bone density based on the lowest T-score value of 0.2 in the lumbar spine applying World Health Organization criteria. 2. 10-YEAR FRACTURE RISK PREDICTION, FRAX: According to the guidelines, FRAX calculation should only be performed on patients in the osteopenia bone density category. Therefore, FRAX was not performed on this patient. 3. Treatment Recommendations: NOF guidelines recommend consideration for treatment in postmenopausal women and men age 50 and older presenting with the following: -A hip or vertebral (clinical or morphometric) fracture. -T-score less than or equal to -2.5 at the femoral neck or spine after appropriate evaluation to exclude secondary causes. -Low bone mass at the hip or spine and a 10-year fracture probability by FRAX of greater than or equal to 3% for hip fracture or greater than or equal to 20% for major osteoporotic fracture based on the [place] adapted WHO algorithm. 4. Other Recommendations: All treatment decisions require clinical judgment and consideration of individual patient factors, including patient preferences, comorbidities, previous drug use, risk factors not captured in the FRAX model (e.g. frailty, falls, vitamin D deficiency, increased bone turnover, interval significant decline in bone density) and possible under or overestimation of fracture risk by FRAX. FUTURE SCAN RECOMMENDATION: People with diagnosed cases of osteoporosis or at high risk for fracture should have regular bone mineral density tests. For patients eligible for Medicare, routine testing is allowed once every 2 years. The testing frequency can be increased to one year for patients who have rapidly progressing disease, those who are receiving or discontinuing medical therapy to restore bone mass, or have additional risk factors.
== END 2022-05-06 14:23 | disposition home or self-care (01) ==
LOC: HO.MAMMO 14:22
PROVIDERS: PCP Internal Medicine; Visit Provider Orthopaedic Surgery
DX: Z13.820 Encounter for screening for osteoporosis (principal); S72.91XA Unspecified fracture of right femur, initial encounter for closed fracture; Z78.0 Asymptomatic menopausal state
CPT/HCPCS: 77080

== ENCOUNTER 2022-07-20 13:12 | Outpatient (REF) | payer OTHER, SELFPAY ==
--- NOTE | ~2022-07-20 | XR_ITS ---
EXAMINATION: XR AP BILATERAL KNEE STANDING XR RIGHT KNEE CLINICAL INFORMATION: Right knee pain. COMPARISON: Right knee and AP bilateral knee standing 04/24/2022. TECHNIQUE: AP bilateral knee standing 1 view. Right knee 2 views. FINDINGS: AP Bilateral Knee: There is bilateral knee prosthesis with the prosthetic components in satisfactory alignment. Hypertrophic callus formation are seen along the distal medial femoral cortex likely right knee from previous fracture. Also visualized is moderate hypertrophic callus formation along the lateral femoral cortex distal right femur. The left femur is otherwise unremarkable except for prosthesis. Right Knee: [place] and lateral view right knee reveals right knee prosthesis in satisfactory alignment. No periprosthetic fracture. No loosening visualized. Hypertrophic callus formation along the distal lateral, posterior and medial cortex is noted. XR/XR knee RT 2V IMPRESSION: 1. Bilateral knee prosthesis in satisfactory alignment. There is hypertrophic callus formation along the distal medial and lateral femoral cortex right knee likely from previous fracture. 2. There is a right knee prosthesis in satisfactory alignment. No periprosthetic fracture or loosening seen. There is hypertrophic callus formation along the distal lateral, posterior and medial cortex right knee.
--- NOTE | ~2022-07-20 | XR_ITS ---
EXAMINATION: XR AP BILATERAL KNEE STANDING XR RIGHT KNEE CLINICAL INFORMATION: Right knee pain. COMPARISON: Right knee and AP bilateral knee standing 04/24/2022. TECHNIQUE: AP bilateral knee standing 1 view. Right knee 2 views. FINDINGS: AP Bilateral Knee: There is bilateral knee prosthesis with the prosthetic components in satisfactory alignment. Hypertrophic callus formation are seen along the distal medial femoral cortex likely right knee from previous fracture. Also visualized is moderate hypertrophic callus formation along the lateral femoral cortex distal right femur. The left femur is otherwise unremarkable except for prosthesis. Right Knee: [place] and lateral view right knee reveals right knee prosthesis in satisfactory alignment. No periprosthetic fracture. No loosening visualized. Hypertrophic callus formation along the distal lateral, posterior and medial cortex is noted. XR/XR knee standing BI IMPRESSION: 1. Bilateral knee prosthesis in satisfactory alignment. There is hypertrophic callus formation along the distal medial and lateral femoral cortex right knee likely from previous fracture. 2. There is a right knee prosthesis in satisfactory alignment. No periprosthetic fracture or loosening seen. There is hypertrophic callus formation along the distal lateral, posterior and medial cortex right knee.
== END 2022-07-20 13:13 | disposition home or self-care (01) ==
LOC: HO.HOSX 13:12
PROVIDERS: Visit Provider Orthopaedic Surgery
DX: S72.401D Unspecified fracture of lower end of right femur, subsequent encounter for closed fracture with routine healing (principal); S82.852D Displaced trimalleolar fracture of left lower leg, subsequent encounter for closed fracture with routine healing
CPT/HCPCS: 73560; 73565; 99212

== ENCOUNTER → 2022-09-15 13:53 | Outpatient (BNVA) | payer OTHER, SELFPAY | PROVIDERS: PCP Internal Medicine; Visit Provider Physician Assistant | DX: D64.9 Anemia, unspecified (principal); K52.9 Noninfective gastroenteritis and colitis, unspecified; K59.09 Other constipation | CPT/HCPCS: 99212 ==

== ENCOUNTER 2022-09-16 16:30 | Outpatient (REF) | payer OTHER, SELFPAY ==
[2022-09-16 16:41] LABS: MANUAL DIFF FLAG NO
[2022-09-16 17:23] LABS: Basophils Percent Auto 0.6 % (0-2); Eosinophils Absolute Auto 0.1 X10*3/uL (0.0-0.4); Eosinophils Percent Auto 1.2 % (0-4); Hematocrit 36.7 % (37.0-47.0); Hemoglobin 11.9 g/dl (12.0-16.0); Imm Gran Abs Auto 0.01 X10*3/uL (0.00-0.03); Imm Gran Pct Auto 0.2 % (0.0-0.4); Lymphocytes Absolute Auto 1.8 X10*3/uL (1.2-4.9); Lymphocytes Percent Auto 35.9 % (20-40); Mean Corpuscular HGB Conc 32.4 g/dl (31.0-35.0); Mean Corpuscular Hemoglobin 30.7 pg (27.0-33.0); Mean Corpuscular Volume 94.6 fL (80.0-98.0); Mean Platelet Volume 9.6 fL (9.4-12.3); Monocytes Absolute Auto 0.4 X10*3/uL (0.1-1.2); Monocytes Percent Auto 7.1 % (2-11); Neutrophils Absolute Auto 2.7 x10*3/uL (2.0-8.3); Platelet Count 250 X10*3/uL (160-400); Red Blood Count 3.88 X10*6/uL (4.20-5.50); White Blood Count 4.9 X10*3/uL (4.8-10.8)
[2022-09-16 17:56] LABS: Iron 40 mcg/dL (30-160); Percent Iron Saturation 16 % (15-50); Total Iron Binding Capacity 245 mcg/dL (228-428); Unsaturated Iron Binding 205 ug/dL
[2022-09-16 18:29] LABS: Ferritin 234 ng/mL (10-250); Folate > 20.0 ng/mL (> or = 4.0); Thyroid Stimulating Hormone 14.28 uIU/mL (0.32-4.0); Vitamin B12 > 2000 pg/mL (200-900)
[2022-09-21 15:38] LABS: Endomysial IgA Antibody Negative (Negative); Transglutaminase IgA <1.0 U/mL
== END 2022-09-16 16:31 | disposition home or self-care (01) ==
LOC: HO.LAB 16:30
PROVIDERS: PCP Internal Medicine; Visit Provider Physician Assistant
DX: K52.9 Noninfective gastroenteritis and colitis, unspecified (principal); K59.09 Other constipation; D64.9 Anemia, unspecified
CPT/HCPCS: 36415; 82607; 82728; 82746; 83540; 84443; 85025; 86231; 86364

== ENCOUNTER → 2022-09-23 13:58 | Outpatient (BNVA) | payer OTHER, SELFPAY | PROVIDERS: PCP Internal Medicine; Visit Provider Physician Assistant | DX: D64.9 Anemia, unspecified (principal) | CPT/HCPCS: Q3014 ==

== ENCOUNTER 2022-10-23 15:39 | Outpatient (REF) | payer OTHER, SELFPAY ==
--- NOTE | ~2022-10-23 | MM_ITS ---
EXAMINATION: MM SCREENING DIGITAL BREAST TOMOSYNTHESIS, BILATERAL CLINICAL INFORMATION: Screening. Asymptomatic. The lifetime risk of breast cancer based on the Tyrer-Cuzick Model is 12%. COMPARISON: Mammography: 10/17/2021, 06/18/2020, 01/09/2019 TECHNIQUE: Digital breast tomosynthesis is performed in both the craniocaudal and mediolateral oblique views along with computer-aided detection (CAD). Synthesized 2D images are generated from the tomosynthesis. FINDINGS: The breasts are almost entirely fatty (ACR BI-RADS breast composition Category a). Background stromal markings are similar to prior exams. No developing density or architectural abnormality. Biopsy clip marker again noted anterior central left breast. There are no significant masses, abnormal calcifications, or other abnormalities. The axilla are unremarkable. MM/MM tomosynthesis screening BI IMPRESSION: No mammographic evidence of malignancy. ASSESSMENT: BI-RADS 1: Negative RECOMMENDATION: Routine annual mammography screening. This patient's information was entered into a reminder system with a target due date for their next mammogram.
== END 2022-10-23 15:40 | disposition home or self-care (01) ==
LOC: HO.MAMMO 15:39
PROVIDERS: PCP Internal Medicine; Visit Provider Internal Medicine
DX: Z12.31 Encounter for screening mammogram for malignant neoplasm of breast (principal)
CPT/HCPCS: 77063; 77067

== ENCOUNTER 2023-01-28 14:23 | Emergency (ER) | payer OTHER, SELFPAY ==
--- NOTE | ~2023-01-28 | CT_ITS ---
EXAMINATION: CT ABDOMEN AND PELVIS WITHOUT CONTRAST CLINICAL INFORMATION: Left lower quadrant pain. COMPARISON: CT abdomen/pelvis 10/08/2020. TECHNIQUE: Multidetector volumetric imaging was performed from the superior aspect of the liver through the pubic symphysis. Sagittal and coronal reformatted images were obtained on the technologist's workstation. This CT examination was performed using dose optimization techniques as appropriate, variously including the following: *Automated exposure control *Adjustment of mA and/or kV according to patient size (this includes techniques or standardized protocols for targeted exams where dose is matched to indication/reason for exam; i.e. extremities or head) *Use of iterative reconstruction technique DLP: 819 mGy-cm FINDINGS: The lack of intravenous contrast limits evaluation of the solid visceral organs including the liver, spleen, pancreas, and kidneys. LUNG BASES: No focal consolidation or pleural effusion. LIVER, GALLBLADDER, AND BILIARY TREE: A 1.5 cm cyst in the right hepatic lobe (3:14) is unchanged compared to 2020. Several additional too small to characterize hypodensities throughout the liver are also stable compared to 10/08/2020. The noncontrast liver is normal in size, shape and attenuation. The gallbladder is unremarkable with no evidence of radiopaque gallstones, gallbladder wall thickening, or obvious pericholecystic inflammatory changes. The common bile duct is dilated measuring up to 1.2 cm in diameter on coronal image 33 series 5, stable compared to 10/08/2020. No discrete calcified choledocholithiasis. No significant intrahepatic biliary ductal dilatation. PANCREAS: Limited noncontrast examination. No significant peripancreatic free fluid or fat stranding. SPLEEN: Unremarkable. ADRENAL GLANDS: No adrenal mass. KIDNEYS AND URETERS: No nephrolithiasis or hydronephrosis. No significant perinephric fat stranding. BLADDER: Unremarkable. GASTROINTESTINAL TRACT: The stomach and the small bowel are nondilated. Normal appendix. Large amount of stool throughout the colon. No significant pericolonic inflammatory changes. No evidence of bowel obstruction. ABDOMINAL WALL: No significant hernia is appreciated. LYMPH NODES: Limited evaluation in the absence of IV contrast and paucity of abdominal fat. No bulky lymphadenopathy. VASCULAR: Atherosclerotic disease. The abdominal aorta is normal in caliber. PELVIC VISCERA: Hysterectomy. No pelvic mass. 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 CT/CT abdomen pelvis wo IV con IMPRESSION: 1. Large amount of stool throughout the colon suggesting constipation. 2. Stable dilatation of the common bile duct. 3. 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
--- NOTE | ~2023-01-28 | XR_ITS ---
EXAMINATION: XR CHEST CLINICAL INFORMATION: Reason for Exam Generalized weakness COMPARISON: Chest radiograph 02/01/2022 TECHNIQUE: One view of the chest FINDINGS: Lines and tubes: None. Clear lungs. No pleural effusion. No pneumothorax. Unchanged cardiomediastinal silhouette. XR/XR chest 1V IMPRESSION: * Clear lungs.
[2023-01-28 14:39] VITALS: BP 98/40; PULSE 77; RESP 18; O2SAT 98; BMI 34.7
[2023-01-28 15:02] LABS: MANUAL DIFF FLAG NO
[2023-01-28 15:08] LABS: Basophils Percent Auto 0.6 % (0-2); Eosinophils Absolute Auto 0.1 X10*3/uL (0.0-0.4); Hematocrit 32.9 % (37.0-47.0); Hemoglobin 10.6 g/dl (12.0-16.0); Imm Gran Abs Auto 0.01 X10*3/uL (0.00-0.03); Imm Gran Pct Auto 0.3 % (0.0-0.4); Lymphocytes Absolute Auto 1.3 X10*3/uL (1.2-4.9); Lymphocytes Percent Auto 38.5 % (20-40); Mean Corpuscular HGB Conc 32.2 g/dl (31.0-35.0); Mean Corpuscular Hemoglobin 30.5 pg (27.0-33.0); Mean Corpuscular Volume 94.5 fL (80.0-98.0); Mean Platelet Volume 9.7 fL (9.4-12.3); Monocytes Absolute Auto 0.3 X10*3/uL (0.1-1.2); Monocytes Percent Auto 8.3 % (2-11); Neutrophils Absolute Auto 1.8 x10*3/uL (2.0-8.3); Neutrophils Percent Auto 50.3 % (45-73); Platelet Count 188 X10*3/uL (160-400); Red Blood Count 3.48 X10*6/uL (4.20-5.50); Red Cell Distribution Width 13.6 % (11.0-16.0); White Blood Count 3.5 X10*3/uL (4.8-10.8)
--- NOTE | 2023-01-28 15:08 | ED.ABDPAIN ---
HPI - Abdominal Pain General Chief Complaint: Abdominal Pain Stated Complaint: shacking all over body/ abd pain? Time Seen by Provider: 01/28/23 16:49 Source: patient Mode of arrival: ambulatory Limitations: no limitations History of Present Illness HPI narrative: This is a 62 year old female, hx of hypothyroidism, GERD, MARLENY, poor historian presenting to the clinic for a sick visit complaining of LLQ abd pain, chills, body shaking, fatigue, malaise, myalgias X 2 days. Patient was called in as and expect from walk in clinic. Patient reports that she has had chronic left lower quadrant pain for months. No nausea, no vomiting, no diarrhea, no blood in the stool, has been eating and drinking with good appetite, no sick contacts, no coughing, no dysuria, no frequency urination, no blood in the urine. Past abdominal surgical history is significant for hysterectomy and hernia repair, patient had colonoscopy last year and patient reported was not significant. Related Data Home Medications Medication Instructions Recorded Confirmed calcium carbonate 500 mg calcium 500 mg PO DAILY 10/01/20 01/05/23 (1,250 mg) tablet (Calcium 500) glucosamine HCl 500 mg tablet 500 mg PO DAILY 10/01/20 01/05/23 multivitamin 1 tab PO DAILY 10/01/20 01/05/23 omega-3 fatty acids 1,000 mg 1,000 mg PO DAILY 10/01/20 01/05/23 capsule (Fish Oil Concentrate) clonazepam 0.5 mg tablet 0.5 mg PO BID PRN Anxiety 04/04/21 01/05/23 melatonin 5 mg tablet 5 mg PO BEDTIME 04/04/21 01/05/23 metronidazole 0.75 % topical gel 1 appl topical BEDTIME 04/04/21 01/05/23 ascorbic acid (vitamin C) 100 mg 100 mg PO DAILY 01/28/22 01/05/23 tablet cholecalciferol (vitamin D3) 25 25 mcg PO DAILY 01/28/22 01/05/23 mcg (1,000 unit) tablet (Vitamin D3) venlafaxine 37.5 mg tablet 37.5 mg PO DAILY 10/06/22 01/05/23 Previous Rx's Medication Instructions Recorded quetiapine 400 mg tablet 400 mg PO BID 90 days #180 tabs 02/19/22 polyethylene glycol 3350 17 gram 17 g PO DAILY #30 ea 05/12/22 oral powder packet (Miralax) Shoe lift #1 ea 05/15/22 albuterol sulfate 90 mcg/actuation 2 puff inhalation Q6H PRN 07/10/22 aerosol inhaler (Ventolin HFA) shortness of breath or wheezing 30 days #6.7 grams loratadine 10 mg tablet (Allergy 10 mg PO DAILY 90 days #90 tabs 08/10/22 Relief (loratadine)) acetaminophen 500 mg tablet 1,000 mg PO Q6H PRN pain 30 days 08/13/22 #240 tabs omeprazole 20 mg capsule,delayed 40 mg PO DAILY 90 days #180 caps 09/07/22 release gabapentin 800 mg tablet 800 mg PO TID 90 days #270 tabs 12/07/22 methylcellulose (laxative) 500 mg 500 mg PO BID #60 tabs 12/08/22 tablet (Citrucel) tramadol 50 mg tablet 100 mg PO Q4H PRN pain 30 days 12/20/22 #340 tabs levothyroxine 150 mcg tablet 150 mcg PO DAILY 90 days #90 tabs 12/30/22 valacyclovir 1 gram tablet 1,000 mg PO DAILY 90 days #90 tabs 01/10/23 Allergies Allergy/AdvReac Type Severity Reaction Status Date / Time amoxicillin [Augmentin] Allergy Intermediate rash Verified 01/28/23 13:35 cat dander Allergy Intermediate NASAL Verified 01/28/23 13:35 SYMPTOMS clavulanic acid [Augmentin] Allergy Intermediate rash Verified 01/28/23 13:35 trazodone [TRAZODONE] Allergy Intermediate I CAN'T Verified 01/28/23 13:35 BREATHE RIGHT , shortness of breath Review of Systems Review of Systems All other systems are reviewed and are negative Constitutional: Reports as per HPI and Reports no additional constitutional complaints Eyes: Reports as per HPI and Reports no additional eye complaints Reports system reviewed and no additional complaints, except as documented Cardiovascular: Reports as per HPI and Reports no additional cardiovascular complaints Respiratory: Reports as per HPI and Reports no additional respiratory complaints Gastrointestinal: Reports as per HPI and Reports no additional gastrointestinal complaints Genitourinary: Reports no additional female genitourinary complaints Musculoskeletal: Reports no additional musculoskeletal complaints Skin/Breast: Reports system reviewed and no additional complaints, except as docu Psychiatric: Reports no additional psychiatric complaints Endocrine: Reports no additional endocrine complaints Hematologic/Lymphatic: Reports no additional hematologic/lymphatic complaints Allergic/Immunologic: Reports no additional allergic/immunologic complaints Reports system reviewed and no additional complaints, except as documented and Reports Abnormal speech present [facility] Past Medical History Medical History Anemia Arthritis BMI 34.0-34.9,adult Depression GERD (gastroesophageal reflux disease) Hematuria History of small bowel obstruction Hypothyroid IBS (irritable bowel syndrome) Leukopenia Liver cyst Lumbar degenerative disc disease Migraines Moderate recurrent major depression Neck pain Obesity (BMI 30-39.9) Sleep apnea Umbilical hernia Surgical History H/O hernia repair H/O knee surgery H/O tubal ligation H/O: hysterectomy History of ankle surgery History of back surgery History of bilateral knee replacement History of bladder surgery History of delivery History of endometrial ablation History of esophagogastroduodenoscopy (EGD) History of hand surgery History of surgery History of surgery History of surgical removal of skin lesion Hx of colonoscopy Hx of foot surgery Family History Family History Father FH: prostate cancer Mother Breast cancer Bladder cancer Social History Social History Household Members: None Housing: House 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) Alcohol intake: current Alcohol intake frequency: holidays/special occasions only Alcohol type: hard liquor Patient Tobacco Use Status: Former Tobacco user Quit Date: 20 yrs ago Tobacco use type: Cigarette Years Smoked: 25 e-Cigarette/Vaping Use: Never Used Second Hand Smoke Exposure: No Advance Directives: No Advance Directives Information Provided: Yes service: No Current occupational status: unemployed and disabled Cognitive needs: No Hearing needs: No Vision needs: No Physical Exam ED Vital Signs: Vital Signs - 24 hr 01/28/23 14:39 Pulse Rate 77 Respiratory Rate 18 Blood Pressure 98/40 L Pulse Oximetry 98 Oxygen Delivery Method Room Air BMI result Body Mass Index 34.7 Vital signs have been reviewed as appeared to be correct. Blood pressure normal. Heart rate normal. Respiration rate normal. Temperature normal. Oxygen saturation normal. Appearance: Alert. Oriented X3. No acute distress. Head: Normal external exam. Normocephalic. Atraumatic. No Brown signs noted. No raccoon eyes noted Eyes: PERRLA. EOMI. Conjunctiva and sclera normal. Eyelids normal. ENT: TM's Normal. Pharynx normal. Uvula midline. Moist mucous membranes. No trismus noted. No drooling noted. No muffled voice noted. Neck: Normal inspection. Neck supple. FROM. No adenopathy. Thyroid Normal. No meningeal signs. No neck mass noted. CVS: Normal heart rate and rhythm. Heart sound normal. No murmurs noted. Pulses normal throughout. Respiratory: No respiratory distress. Painless inspiration. Breath sounds normal. No wheezes/rales/rhonchi noted. Chest nontender. No accessory muscle usage noted or decreased air movement noted. Abdomen: Soft and nontender. Bowel sounds normal in all 4 quadrants. No distention noted. No organomegaly noted. No visible injury noted. Back: No CVA tenderness. Full range of motion noted. Skin: Skin warm and dry. Normal skin color. Normal skin turgor. No rashes/lesions/lacerations noted. Extremities: No lower extremity edema. Extremities exhibit normal range of motion. Extremities nontender. Neuro: Oriented X 3. Cranial nerve exam: II-XII are grossly intact No motor deficit. No sensory deficit. Reflexes normal. Course Course Course Narrative: 62-year-old female came in for evaluation of generalized weakness, and chronic left lower quadrant abdominal pain, unremarkable labs, CT of the abdomen and pelvis is suggesting possibly constipation otherwise unremarkable, patient feels slightly better was instructed to rest and drink plenty of fluids at home. Medical Decision Making Medical Decision Making [facility] Narrative: Plan: Labs, further evaluation by ER provider when bed becomes available. Differential Diagnosis Differential Diagnoses: The differential diagnosis associated with the presentation includes (Diverticulitis, colitis, constipation, UTI, dehydration, electrolyte abnormalities, severe anemia.) Admission/Observation Consideration of admission/observation: Escalation of care including admission/observation considered Lab Data MDM Lab Attestation statement: I reviewed the patient's lab results. 01/28/23 14:57 01/28/23 14:57 Labs: Lab Results 01/28/23 01/28/23 01/28/23 Range/Units 14:57 14:57 17:12 WBC 3.5 L (4.8-10.8) X10*3/uL RBC 3.48 L (4.20-5.50) X10*6/uL Hgb 10.6 L (12.0-16.0) g/dl Hct 32.9 L (37.0-47.0) % MCV 94.5 (80.0-98.0) fL MCH 30.5 (27.0-33.0) pg MCHC 32.2 (31.0-35.0) g/dl RDW 13.6 (11.0-16.0) % Plt Count 188 (160-400) X10*3/uL MPV 9.7 (9.4-12.3) fL Immature Gran % (Auto) 0.3 (0.0-0.4) % Neut % (Auto) 50.3 (45-73) % Lymph % (Auto) 38.5 (20-40) % [place] % (Auto) 8.3 (2-11) % Eos % (Auto) 2.0 (0-4) % Baso % (Auto) 0.6 (0-2) % Lymph # (Auto) 1.3 (1.2-4.9) X10*3/uL [place] # (Auto) 0.3 (0.1-1.2) X10*3/uL Eos # (Auto) 0.1 (0.0-0.4) X10*3/uL Baso # (Auto) 0.0 (0.0-0.2) X10*3/uL Abs Immat Gran (auto) 0.01 (0.00-0.03) X10*3/uL Absolute Neuts (auto) 1.8 L (2.0-8.3) x10*3/uL Absolute Nucleated RBC 0.000 (0.0-0.012) X10*3/uL Nucleated RBC % (auto) 0.0 (0.0-0.2) /100WBC Sodium 142 (135-145) mmol/L Potassium 4.4 D (3.3-5.1) mmol/L Chloride 110 H (96-108) mmol/L Carbon Dioxide 26 (22-29) mmol/L Anion Gap 10 L (12-20) BUN 16 (9-16) mg/dL Creatinine 0.68 (0.5-1.4) mg/dL Estim Creat Clear Calc 101.0 Estimated GFR > 60 Random Glucose 77 (60-115) mg/dL Calcium 8.8 D (8.4-10.2) mg/dL Total Bilirubin 0.2 (0.0-1.0) mg/dL AST 18 (5-31) U/L ALT 10 (0-31) U/L Alkaline Phosphatase 77 (39-117) U/L Total Protein 6.3 L (6.5-8.0) g/dL Albumin 3.8 (3.5-5.0) g/dL Lipase 20 (8-78) U/L Urine Color Yellow Urine Appearance Clear Urine pH 7.0 (5.0-9.0) Ur Specific [place] <= 1.005 (1.005-1.025) Urine Protein Negative (Neg-Trace) mg/dL Urine Glucose (UA) Negative (Negative) mg/dL Urine Ketones Negative (Negative) mg/dL Urine Blood Negative (Negative) Urine Nitrite Negative (Negative) Ur Leukocyte Esterase Trace H (Negative) Urine RBC 0-2 (0-2) /HPF Urine WBC 0-5 (0-5) /HPF Ur Squamous Epith Cells 0-2 (0-2) /HPF Urine Bacteria None Seen (None Seen) Hyaline Casts 0-2 (0-2) /LPF Independent Interpretation I performed an independent interpretation of an: Plain X-Ray (Chest: Clear lungs) and CT Scan (Abdomen and pelvis: No acute intra abdominal pathology.) Radiology Impression Discussion of test interpretation with radiology: I have reviewed the radiologist's reading. Discharge Plan Discharge Clinical Impression: Episode of generalized weakness Patient Disposition: Home, Self-Care Instructions: Weakness (ED) Prescriptions: No Action quetiapine 400 mg tablet 400 mg PO BID 90 Days Qty: 180 0RF polyethylene glycol 3350 [Miralax] 17 gram powder in packet 17 g PO DAILY Qty: 30 5RF (DME) Shoe lift See Rx Instructions .Route .MEDSUPPLY Qty: 1 0RF Rx Instructions: As directed albuterol sulfate [Ventolin HFA] 90 mcg/actuation HFA aerosol inhaler 2 puff inhalation Q6H PRN (Reason: shortness of breath or wheezing) 30 Days Qty: 6.7 2RF loratadine [Allergy Relief (loratadine)] 10 mg tablet 10 mg PO DAILY 90 Days Qty: 90 1RF acetaminophen 500 mg tablet 1,000 mg PO Q6H PRN (Reason: pain) 30 Days Qty: 240 8RF omeprazole 20 mg capsule,delayed release(DR/EC) 40 mg PO DAILY 90 Days Qty: 180 1RF gabapentin 800 mg tablet 800 mg PO TID 90 Days Qty: 270 1RF Citrucel 500 mg tablet 500 mg PO BID Qty: 60 5RF tramadol 50 mg tablet 100 mg PO Q4H PRN (Reason: pain) 30 Days Qty: 340 0RF Rx Instructions: Take 2 tablets every 4 hours prn levothyroxine 150 mcg tablet 150 mcg PO DAILY 90 Days Qty: 90 2RF valacyclovir 1 gram tablet 1,000 mg PO DAILY 90 Days Qty: 90 3RF ascorbic acid (vitamin C) 100 mg Tablet 100 mg PO DAILY cholecalciferol (vitamin D3) [Vitamin D3] 25 mcg (1,000 unit) Tablet 25 mcg PO DAILY venlafaxine 37.5 mg tablet 37.5 mg PO DAILY omega-3 fatty acids [Fish Oil Concentrate] 1,000 mg capsule 1,000 mg PO DAILY calcium carbonate [Calcium 500] 500 mg calcium (1,250 mg) tablet 500 mg PO DAILY multivitamin Tablet 1 tab PO DAILY glucosamine HCl 500 mg tablet 500 mg PO DAILY Rx Instructions: administer with a meal clonazepam 0.5 mg tablet 0.5 mg PO BID PRN (Reason: Anxiety) melatonin 5 mg tablet 5 mg PO BEDTIME metronidazole 0.75 % gel 1 appl topical BEDTIME Referrals: Brianda Cotton MD [Primary Care Provider] -
[2023-01-28 15:34] LABS: Alanine Aminotransferase 10 U/L (0-31); Albumin Level 3.8 g/dL (3.5-5.0); Alkaline Phosphatase 77 U/L (39-117); Anion Gap 10 (12-20); Aspartate Amino Transferase 18 U/L (5-31); Bilirubin Total 0.2 mg/dL (0.0-1.0); Blood Urea Nitrogen 16 mg/dL (9-16); Calcium 8.8 mg/dL (8.4-10.2); Carbon Dioxide 26 mmol/L (22-29); Chloride 110 mmol/L (96-108); Estimated Glomerular Filt Rate > 60; Glucose Random 77 mg/dL (60-115); Lipase 20 U/L (8-78); Potassium 4.4 mmol/L (3.3-5.1); Sodium 142 mmol/L (135-145); Total Protein 6.3 g/dL (6.5-8.0)
--- NOTE | 2023-01-28 16:59 | ECG_ITS ---
Test Reason : ABDOMINAL PAIN Blood Pressure : / mmHG Vent. Rate : 065 BPM Atrial Rate : 065 BPM P-R Int : 198 ms QRS Dur : 104 ms QT Int : 418 ms P-R-T Axes : 077 053 053 degrees QTc Int : 434 ms Normal sinus rhythm Normal ECG When compared with ECG of 28-JAN-2022 01:36, No significant changes seen Referred By: Sydnee Khalil Electronically Signed By:CAROLINA ALEXANDER
--- NOTE | 2023-01-28 17:01 | PC.NURSE ---
Patient attempting to provide urine specimen at this time. Used cane (baseline) when ambulating.
[2023-01-28 17:19] LABS: Appearance Urine Clear; Color Urine Yellow; Glucose Urine UA Negative (Negative); Leukocyte Esterase Urine Trace (Negative); Nitrite Urine Negative (Negative); Specific Gravity - Urine <= 1.005 (1.005-1.025); UMIC TRIGGER UACC YES; Urine Blood Negative (Negative); Urine Ketones Negative (Negative); Urine Protein Negative (Neg-Trace)
[2023-01-28 17:32] LABS: Bacteria Urine None Seen (None Seen); Hyaline Casts Urine 0-2 /LPF (0-2); RBC Urine 0-2 /HPF (0-2); Squamous Epithelial Cell Urine 0-2 /HPF (0-2); WBC Urine 0-5 /HPF (0-5)
[2023-01-28 19:15] VITALS: BP 131/67; PULSE 64; RESP 18; TEMP 36.5; O2SAT 100
--- NOTE | 2023-01-28 19:23 | PC.NURSE ---
d/c walking to waiting room w/cane. aox4. calm, cooperative. pt re[ports weakness improved. vs stable. no piv
--- NOTE | 2023-03-13 15:48 | ED.LOWEXIN ---
HPI - Extremity Injury (Lower) General Chief Complaint: Abdominal Pain Stated Complaint: shacking all over body/ abd pain? Time Seen by Provider: 01/28/23 16:49 Source: patient Mode of arrival: ambulatory Limitations: no limitations Related Data Home Medications Medication Instructions Recorded Confirmed calcium carbonate 500 mg calcium 500 mg PO DAILY 10/01/20 02/11/23 (1,250 mg) tablet (Calcium 500) glucosamine HCl 500 mg tablet 500 mg PO DAILY 10/01/20 02/11/23 multivitamin 1 tab PO DAILY 10/01/20 02/11/23 omega-3 fatty acids 1,000 mg 1,000 mg PO DAILY 10/01/20 02/11/23 capsule (Fish Oil Concentrate) clonazepam 0.5 mg tablet 0.5 mg PO BID PRN Anxiety 04/04/21 02/11/23 melatonin 5 mg tablet 5 mg PO BEDTIME 04/04/21 02/11/23 metronidazole 0.75 % topical gel 1 appl topical BEDTIME 04/04/21 02/11/23 ascorbic acid (vitamin C) 100 mg 100 mg PO DAILY 01/28/22 02/11/23 tablet cholecalciferol (vitamin D3) 25 25 mcg PO DAILY 01/28/22 02/11/23 mcg (1,000 unit) tablet (Vitamin D3) venlafaxine 37.5 mg tablet 37.5 mg PO DAILY 10/06/22 02/11/23 Previous Rx's Medication Instructions Recorded quetiapine 400 mg tablet 400 mg PO BID 90 days #180 tabs 02/19/22 polyethylene glycol 3350 17 gram 17 g PO DAILY #30 ea 05/12/22 oral powder packet (Miralax) Shoe lift #1 ea 05/15/22 loratadine 10 mg tablet (Allergy 10 mg PO DAILY 90 days #90 tabs 08/10/22 Relief (loratadine)) acetaminophen 500 mg tablet 1,000 mg PO Q6H PRN pain 30 days 08/13/22 #240 tabs gabapentin 800 mg tablet 800 mg PO TID 90 days #270 tabs 12/07/22 methylcellulose (laxative) 500 mg 500 mg PO BID #60 tabs 12/08/22 tablet (Citrucel) valacyclovir 1 gram tablet 1,000 mg PO DAILY 90 days #90 tabs 01/10/23 ferrous sulfate 325 mg (65 mg 325 mg PO DAILY 90 days #90 tabs 02/04/23 iron) tablet levothyroxine 175 mcg tablet 175 mcg PO DAILY 90 days #90 tabs 02/04/23 tramadol 50 mg tablet 100 mg PO Q4H PRN pain 30 days 02/05/23 #340 tabs peg-electrolyte solution 420 gram 240 ml PO ONCE PRN laxative effect 02/11/23 oral solution 1 day #4,000 mL polyethylene glycol 3350 17 17 g PO DAILY 30 days #510 grams 02/11/23 gram/dose oral powder (Miralax) albuterol sulfate 90 mcg/actuation 2 puff inhalation Q6H PRN 03/03/23 aerosol inhaler (Ventolin HFA) shortness of breath or wheezing 30 days #6.7 grams omeprazole 20 mg capsule,delayed 40 mg PO DAILY 90 days #180 caps 03/03/23 release Allergies Allergy/AdvReac Type Severity Reaction Status Date / Time amoxicillin [Augmentin] Allergy Intermediate rash Verified 02/04/23 16:40 cat dander Allergy Intermediate NASAL Verified 02/04/23 16:40 SYMPTOMS clavulanic acid [Augmentin] Allergy Intermediate rash Verified 02/04/23 16:40 trazodone [TRAZODONE] Allergy Intermediate I CAN'T Verified 02/04/23 16:40 BREATHE RIGHT , shortness of breath PMFSH Past Medical History Medical History Anemia Arthritis BMI 34.0-34.9,adult Depression GERD (gastroesophageal reflux disease) Hematuria History of small bowel obstruction Hypothyroid IBS (irritable bowel syndrome) Leukopenia Liver cyst Lumbar degenerative disc disease Migraines Moderate recurrent major depression Neck pain Obesity (BMI 30-39.9) Sleep apnea Umbilical hernia Surgical History (Updated 02/11/23 @ 14:26 by Becky Loza PA-C) H/O hernia repair H/O knee surgery H/O tubal ligation H/O: hysterectomy History of ankle surgery History of back surgery History of bilateral knee replacement History of bladder surgery History of delivery History of endometrial ablation History of esophagogastroduodenoscopy (EGD) History of hand surgery History of surgery History of surgery History of surgical removal of skin lesion Hx of colonoscopy (~02/11/23) Hx of foot surgery Family History Family History Father FH: prostate cancer Mother Breast cancer Bladder cancer Social History Social History Household Members: None Housing: House 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) Alcohol intake: never Patient Tobacco Use Status: Former Tobacco user Quit Date: 20 yrs ago Tobacco use type: Cigarette Years Smoked: 25 e-Cigarette/Vaping Use: Never Used Second Hand Smoke Exposure: No service: No Current occupational status: unemployed and disabled Cognitive needs: No Hearing needs: No Vision needs: No Physical Exam Vital Signs: Vital Signs: Last Vital Signs Temp 97.7 F 01/28/23 19:15 Pulse 64 01/28/23 19:15 Resp 18 01/28/23 19:15 BP 131/67 01/28/23 19:15 Pulse Ox 100 01/28/23 19:15 O2 Del Method Room Air 01/28/23 19:15 BMI result Body Mass Index 34.7 Medical Decision Making Lab Data 01/28/23 14:57 01/28/23 14:57 Labs: Lab Results 01/28/23 01/28/23 01/28/23 Range/Units 14:57 14:57 17:12 WBC 3.5 L (4.8-10.8) X10*3/uL RBC 3.48 L (4.20-5.50) X10*6/uL Hgb 10.6 L (12.0-16.0) g/dl Hct 32.9 L (37.0-47.0) % MCV 94.5 (80.0-98.0) fL MCH 30.5 (27.0-33.0) pg MCHC 32.2 (31.0-35.0) g/dl RDW 13.6 (11.0-16.0) % Plt Count 188 (160-400) X10*3/uL MPV 9.7 (9.4-12.3) fL Immature Gran % (Auto) 0.3 (0.0-0.4) % Neut % (Auto) 50.3 (45-73) % Lymph % (Auto) 38.5 (20-40) % [place] % (Auto) 8.3 (2-11) % Eos % (Auto) 2.0 (0-4) % Baso % (Auto) 0.6 (0-2) % Lymph # (Auto) 1.3 (1.2-4.9) X10*3/uL [place] # (Auto) 0.3 (0.1-1.2) X10*3/uL Eos # (Auto) 0.1 (0.0-0.4) X10*3/uL Baso # (Auto) 0.0 (0.0-0.2) X10*3/uL Abs Immat Gran (auto) 0.01 (0.00-0.03) X10*3/uL Absolute Neuts (auto) 1.8 L (2.0-8.3) x10*3/uL Absolute Nucleated RBC 0.000 (0.0-0.012) X10*3/uL Nucleated RBC % (auto) 0.0 (0.0-0.2) /100WBC Sodium 142 (135-145) mmol/L Potassium 4.4 D (3.3-5.1) mmol/L Chloride 110 H (96-108) mmol/L Carbon Dioxide 26 (22-29) mmol/L Anion Gap 10 L (12-20) BUN 16 (9-16) mg/dL Creatinine 0.68 (0.5-1.4) mg/dL Estim Creat Clear Calc 101.0 Estimated GFR > 60 Random Glucose 77 (60-115) mg/dL Calcium 8.8 D (8.4-10.2) mg/dL Total Bilirubin 0.2 (0.0-1.0) mg/dL AST 18 (5-31) U/L ALT 10 (0-31) U/L Alkaline Phosphatase 77 (39-117) U/L Total Protein 6.3 L (6.5-8.0) g/dL Albumin 3.8 (3.5-5.0) g/dL Lipase 20 (8-78) U/L Urine Color Yellow Urine Appearance Clear Urine pH 7.0 (5.0-9.0) Ur Specific [place] <= 1.005 (1.005-1.025) Urine Protein Negative (Neg-Trace) mg/dL Urine Glucose (UA) Negative (Negative) mg/dL Urine Ketones Negative (Negative) mg/dL Urine Blood Negative (Negative) Urine Nitrite Negative (Negative) Ur Leukocyte Esterase Trace H (Negative) Urine RBC 0-2 (0-2) /HPF Urine WBC 0-5 (0-5) /HPF Ur Squamous Epith Cells 0-2 (0-2) /HPF Urine Bacteria None Seen (None Seen) Hyaline Casts 0-2 (0-2) /LPF Discharge Plan Discharge Clinical Impression: Episode of generalized weakness Patient Disposition: Home, Self-Care Instructions: Weakness (ED) Prescriptions: No Action quetiapine 400 mg tablet 400 mg PO BID 90 Days Qty: 180 0RF polyethylene glycol 3350 [Miralax] 17 gram powder in packet 17 g PO DAILY Qty: 30 5RF (DME) Shoe lift See Rx Instructions .Route .MEDSUPPLY Qty: 1 0RF Rx Instructions: As directed loratadine [Allergy Relief (loratadine)] 10 mg tablet 10 mg PO DAILY 90 Days Qty: 90 1RF acetaminophen 500 mg tablet 1,000 mg PO Q6H PRN (Reason: pain) 30 Days Qty: 240 8RF gabapentin 800 mg tablet 800 mg PO TID 90 Days Qty: 270 1RF Citrucel 500 mg tablet 500 mg PO BID Qty: 60 5RF valacyclovir 1 gram tablet 1,000 mg PO DAILY 90 Days Qty: 90 3RF tramadol 50 mg tablet 100 mg PO Q4H PRN (Reason: pain) 30 Days Qty: 340 0RF Rx Instructions: Take 2 tablets every 4 hours prn albuterol sulfate [Ventolin HFA] 90 mcg/actuation HFA aerosol inhaler 2 puff inhalation Q6H PRN (Reason: shortness of breath or wheezing) 30 Days Qty: 6.7 2RF omeprazole 20 mg capsule,delayed release(DR/EC) 40 mg PO DAILY 90 Days Qty: 180 1RF ascorbic acid (vitamin C) 100 mg Tablet 100 mg PO DAILY cholecalciferol (vitamin D3) [Vitamin D3] 25 mcg (1,000 unit) Tablet 25 mcg PO DAILY venlafaxine 37.5 mg tablet 37.5 mg PO DAILY ferrous sulfate 325 mg (65 mg iron) tablet 325 mg PO DAILY 90 Days Qty: 90 0RF levothyroxine 175 mcg tablet 175 mcg PO DAILY 90 Days Qty: 90 1RF omega-3 fatty acids [Fish Oil Concentrate] 1,000 mg capsule 1,000 mg PO DAILY calcium carbonate [Calcium 500] 500 mg calcium (1,250 mg) tablet 500 mg PO DAILY multivitamin Tablet 1 tab PO DAILY glucosamine HCl 500 mg tablet 500 mg PO DAILY Rx Instructions: administer with a meal clonazepam 0.5 mg tablet 0.5 mg PO BID PRN (Reason: Anxiety) melatonin 5 mg tablet 5 mg PO BEDTIME metronidazole 0.75 % gel 1 appl topical BEDTIME peg-electrolyte soln 420 gram recon soln 240 ml PO ONCE PRN (Reason: laxative effect) 1 Days Qty: 4000 0RF Rx Instructions: Start at 6:00pm the evening before procedure, drink one 8oz glass every 15 minutes until complete polyethylene glycol 3350 [Miralax] 17 gram/dose powder 17 g PO DAILY 30 Days Qty: 510 6RF Referrals: Brianda Cotton MD [Primary Care Provider] - Interventions: ED Discharge Assessment Last Done: 01/28/23 19:23 Discharge Date/Time: 01/28/23 19:24
== END 2023-01-28 19:24 | disposition home or self-care (01) ==
PROVIDERS: Emergency Provider Emergency Medicine; PCP Internal Medicine
DX: R53.1 Weakness (principal); R10.32 Left lower quadrant pain; Z79.899 Other long term (current) drug therapy; Z87.891 Personal history of nicotine dependence
CPT/HCPCS: 36415; 71045; 74176; 80053; 81001; 83690; 85025; 93005; 99284

== ENCOUNTER 2023-02-02 16:24 | Outpatient (REF) | payer OTHER, SELFPAY ==
[2023-02-02 18:37] LABS: Alanine Aminotransferase 14 U/L (0-31); Albumin Level 4.4 g/dL (3.5-5.0); Alkaline Phosphatase 80 U/L (39-117); Anion Gap 15 (12-20); Aspartate Amino Transferase 22 U/L (5-31); Bilirubin Total 0.3 mg/dL (0.0-1.0); Blood Urea Nitrogen 21 mg/dL (9-16); Calcium 10.1 mg/dL (8.4-10.2); Carbon Dioxide 23 mmol/L (22-29); Chloride 106 mmol/L (96-108); Cholesterol 223 mg/dL; Estimated Glomerular Filt Rate > 60; Glucose Fasting 102 mg/dL (60-99); HDL Cholesterol 54 mg/dL; LDL Cholesterol Calculated 150 mg/dl; Potassium 4.3 mmol/L (3.3-5.1); Sodium 140 mmol/L (135-145); Total Protein 7.2 g/dL (6.5-8.0); Triglycerides 97 mg/dL
== END 2023-02-02 16:25 | disposition home or self-care (01) ==
LOC: HO.LAB 16:24
PROVIDERS: PCP Internal Medicine; Visit Provider Internal Medicine
DX: Z00.00 Encounter for general adult medical examination without abnormal findings (principal); E03.9 Hypothyroidism, unspecified
CPT/HCPCS: 36415; 80053; 80061; 84443

== ENCOUNTER 2023-02-16 17:00 | Outpatient (RCR) | payer OTHER, SELFPAY ==
--- NOTE | 2023-01-20 14:33 | MHC.PT.EP ---
[facility] [place] [facility] [place] [facility] [place] [facility] [address] [phone] F: [phone] F: [phone] F: [phone] F: [phone] Physical Therapy Plan of Care Date of Evaluation: Date of Surgery: January 2022 Diagnosis: Low back pain, unspecified lumbar pain Assessment: Pt is a very pleasant and motivated 62yo F who presents to PT with low back pain radiating into RLE. Her PMH includes a fall in January 2022 resulting in R femur fracture and L ankle fracture. She is s/p L ankle ORIF and R femur retrograde IMN and revision of R TKA. She presents to PT with current impairments in pain, decreased lumbar ROM, decreased hip ROM R>L, posterior chain tightness, soft tissue restrictions, decreased balance, and impaired gait. She is limited functionally by rolling over in bed, prolonged sitting, prolonged standing, prolonged walking, bending, and sleeping. She is an excellent candidate for skilled PT in order to address current impairments to facilitate return to PLOF. She is recommended to be seen 2x/week for 4 weeks and will be reassessed at that time. Frequency and Duration: The patient will be seen 2x/week for 4 weeks Short Term Goals: Pt will be I with HEP to promote self management of symptoms Pt will improve B hip flexion by at least 10 degrees Pt will demonstrate improvements in postural awareness throughout the day [place] Goals: Pt will improve R glute med strength to at least 4+/5 to assist with standing and walking Pt will demonstrate ability to ambulate >300' on even and uneven surfaces with SPC without LOB and minimal to no discomfort Pt will demonstrate ability to squat and pecan picker object from floor with proper mechanics and minimal to no discomfort Treatment Plan: Modalities to reduce pain, spasms and effusion. Manual therapy to restore motion and function. Therapeutic exercise to improve strength and flexibility. Neuromuscular re-education for posture and balance. Therapeutic activities to return to functional activities of daily living. Electronically signed by: Luna Rod, PT, DPT Please sign and return to therapist. Thank you for your referral.
--- NOTE | 2023-03-26 14:02 | MHC.PT.DC ---
[facility] [place] [facility] [place] [facility] [place] [facility] [address] Samm Richardson [address] [phone] F: [phone] F: [phone] F: [phone] F: [phone] Physical Therapy Discharge Report Diagnosis: Low back pain, unspecified lumbar pain Date of Surgery: January 2022 Date of Evaluation: 01/19/23 Date of Discharge: 03/26/23 Treatments to Date: 4 Cancellations to Date: No Shows to Date: Discharge Status: Visit Non-compliance Discharge Summary: Pt was seen for PT from 01/19/23-02/16/23. She had a no-show for her last scheduled appointment. Pt is being D/C from skilled PT as she has not attended in > 30 days. Pt current level of function unknown at this time. Electronically signed by: Luna Rod, PT, DPT Please sign and return to therapist. Thank you for your referral.
== END 2023-03-26 14:02 | disposition home or self-care (01) ==
LOC: HO.PT 17:00
PROVIDERS: PCP Internal Medicine; Visit Provider Internal Medicine
DX: M54.50 Low back pain, unspecified (principal)
CPT/HCPCS: 97110; 97162

== ENCOUNTER 2023-04-16 14:23 | Outpatient (REF) | payer OTHER, SELFPAY ==
[2023-04-16 15:43] LABS: Thyroid Stimulating Hormone 0.13 uIU/mL (0.32-4.0)
== END 2023-04-16 14:24 | disposition home or self-care (01) ==
LOC: HO.LAB 14:23
PROVIDERS: PCP Internal Medicine; Visit Provider Internal Medicine
DX: E03.9 Hypothyroidism, unspecified (principal)
CPT/HCPCS: 36415; 84443

== ENCOUNTER 2023-06-15 16:21 | Outpatient (REF) | payer OTHER, SELFPAY ==
[2023-06-15 17:40] LABS: Thyroid Stimulating Hormone 0.43 uIU/mL (0.32-4.0)
== END 2023-06-15 16:22 | disposition home or self-care (01) ==
LOC: HO.LAB 16:21
PROVIDERS: PCP Internal Medicine; Visit Provider Internal Medicine
DX: E03.9 Hypothyroidism, unspecified (principal)
CPT/HCPCS: 36415; 84443

== ENCOUNTER 2023-06-25 10:49 | Day surgery (SDC) | payer OTHER, SELFPAY ==
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
--- NOTE | 2023-06-25 12:55 | MHC.SHP ---
Pre-Procedural Eval Section A Date of Service: 06/25/23 The patient is an INPATIENT: No The History & Physical has been completed within 30 days and I have reviewed it.: No Section B Chief Complaint: Anemia, constipation, screening Relevant Family History (Specify if Yes): No Relevant Social History: Tobacco Use (former smoker) Present Medications: see Short Stay Collaborative assessment Medical History: Significant History (Anemia Arthritis BMI 34.0-34.9,adult Depression GERD (gastroesophageal reflux disease) Hematuria History of small bowel obstruction Hypothyroid IBS (irritable bowel syndrome) Leukopenia Liver cyst Lumbar degenerative disc disease Migraines Moderate recurrent major depression Neck pain Obesity (BMI 3) History of Previous Operations: Relevant previous surgery/procedure and date(s) (H/O hernia repair H/O knee surgery H/O tubal ligation H/O: hysterectomy History of back surgery History of bilateral knee replacement History of bladder surgery History of delivery History of endometrial ablation History of esophagogastroduodenoscopy (EGD) History of hand surgery History of) Allergies: Allergies Allergy/AdvReac Type Severity Reaction Status Date / Time amoxicillin [Augmentin] Allergy Intermediate rash Verified 02/04/23 16:40 cat dander Allergy Intermediate NASAL Verified 02/04/23 16:40 SYMPTOMS clavulanic acid [Augmentin] Allergy Intermediate rash Verified 02/04/23 16:40 trazodone [TRAZODONE] Allergy Intermediate I CAN'T Verified 02/04/23 16:40 BREATHE RIGHT , shortness of breath Review of Systems Sugical H&P ROS: Negative: Constitution, Cardiovascular, Respiratory and Gastrointestinal Exam Surgical H&P Exam: Normal: Heart, Normal: Lungs, Normal: Extremities and Normal: Abdomen Plan Diagnosis/Plan: Change (EGD and Colonoscopy for evaluation of anemia, constipation and colon cancer screening) I have reviewed the history and physical and performed a pertinent physical examination on my patient. No changes have occurred unless specified. Time Spent With Patient Time: Total time managing care of this patient today ____ minutes.
[2023-06-25 13:05] VITALS: RESP 16; TEMP 36.6; BMI 37.1
[2023-06-25] MEDS: Lactated Ringers 1,000 ML 100 ML IVCONT (13:17)
--- NOTE | 2023-06-25 13:39 | W.PM.OPN ---
Operative Note Operative Note Date of Service: 06/25/23 Narrative: FLEXIBLE TRANSORAL UPPER GASTROINTESTINAL ENDOSCOPY WITH BIOPSIES AND COLONOSCOPY TILL CECUM Pre-op diagnosis: Screening, Anemia, Constipation Post-op diagnosis: Gastritis, Gastric Polyp, Hemorrhoids, Diverticulosis ? Endoscopist:? Ben Mojica MD Anesthesia:?MAC UPPER ENDOSCOPY Consent: Indications for the procedure and potential complications of bleeding, perforation, reaction to medications and missed diagnosis were discussed with the patient and informed consent was obtained. Instrument: Olympus GIF H 190 mid size upper endoscope Monitoring: Vital signs and clinical assessment, continuous EKG monitoring, Pulse oximetry, Carbon Dioxide monitoring and blood pressure monitoring were done throughout the procedure. Procedure: The patient was placed in the left lateral decubitis position and pre-procedure medications were administered and a bite block was placed. The endoscope was inserted into the mouth and advanced under direct vision to the third part of duodenum. A careful inspection was made as the upper endoscope was withdrawn including a retroflexed examination of the proximal stomach; Findings and interventions are described below. Findings: Larynx: Normal Esophagus: GE junction at 40 cms. No esophagitis or Marroquin's. Stomach: A few 4-5 mm benign appearing polyps in the gastric body - biopsied. Moderate gastric antral erythema with superficial erosions. Biopsies were obtained. Grade 2 flap valve on retroflexed examination of the cardia. Duodenum: Normal bulb and descending duodenum. Biopsies were obtained from 3rd part of the duodenum to check for celiac sprue Intervention: Biopsies as noted above COLONOSCOPY PROCEDURE NOTE Consent: Indications for the procedure and potential complications of bleeding, perforation, reaction to medications and missed diagnosis were discussed with the patient and informed consent was obtained. Instrument: Olympus PCF H 190 L variable stiffness pediatric colonoscope Monitoring: Vital signs and clinical assessment, intermittent blood pressure monitoring, continuous EKG monitoring, Pulse oximetry and Carbon Dioxide monitoring were done throughout the procedure. Colon withdrawl time was 28 minutes. Procedure: The patient was placed in the left lateral decubitis position and pre-procedure medications were administered. After a digital rectal examination of the ano-rectum, the video colonoscope was inserted into the rectum and advanced through the colon to the cecum. The colonoscope was slowly withdrawn in a retrograde panoramic fashion and the colon mucosa was carefully examined including a retroflexed view of the rectum. Findings and interventions are described below. Procedure Difficulty: Colon was long and tortuous and there was spasm and some loop formation Findings: Terminal Ileum: Not evaluated Cecum: Normal Ascending Colon: Normal Transverse Colon: Normal Descending Colon: Normal Sigmoid Colon: Moderate diverticulosis Rectum: Normal Ano-rectum: Moderate internal hemorrhoids Colon preparation: Good to Fair despite copious irrigation Impression and Post Procedure Diagnosis: Endoscopy Findings: STOMACH: Gastritis with erosions, gastric polyps DUODENUM: Normal - biopsied to check for celiac sprue Colonoscopy Findings: No polyps were detected Moderate diverticulosis seen in the sigmoid colon Small hemorrhoids on retroflexed exam. Plan: Await pathology results Patient has an appointment on 07/05/23 in the GI Clinic with BRANDON Anguiano. Repeat Colonoscopy in 5 years (due to fair prep) or colon cancer screening with stool cologuard test can be considered since pt continues to have fair prep. Of note, this is patient's 3rd colonoscopy in 11 years. FH is negative for colon polyps of colon cancer She had a colonoscopy in [address] Marshall and a few hyperplastic polyps were removed. 2020 Colonoscopy was aborted due to suboptimal prep. Above findings were reviewed with the patient and Gastric Polyps and diverticulosis handouts were given in the discharge area BIOPSIES SHOWED: A. Small bowel, biopsy: Duodenal/small bowel mucosa with preserved villi and no specific change; no evidence of celiac disease. B. Gastric antrum, biopsy: Reactive gastropathy with focal minimal chronic inactive inflammation; negative for H pylori, intestinal metaplasia and dysplasia. C. Gastric polyp, biopsy: Gastric body mucosa with focal minimal chronic inactive inflammation and features suggesting proton pump inhibitor effect; negative for H pylori, intestinal metaplasia and dysplasia
[2023-06-25 14:37] VITALS: BP 111/61; PULSE 77; RESP 16; TEMP 36.8; O2SAT 99
[2023-06-25 14:52] VITALS: BP 127/65; PULSE 82; RESP 18; TEMP 37.2; O2SAT 100
== END 2023-06-25 15:24 | disposition home or self-care (01) ==
PROVIDERS: PCP Internal Medicine; Visit Provider Internal Medicine Gastroenterology
PROC: (CPT 43239; principal; 2023-06-25 13:10)
DX: K31.7 Polyp of stomach and duodenum (principal); K29.70 Gastritis, unspecified, without bleeding; K57.30 Diverticulosis of large intestine without perforation or abscess without bleeding; K64.8 Other hemorrhoids; D64.9 Anemia, unspecified; K59.09 Other constipation; K21.9 Gastro-esophageal reflux disease without esophagitis; G47.33 Obstructive sleep apnea (adult) (pediatric); Z98.51 Tubal ligation status; Z87.891 Personal history of nicotine dependence
CPT/HCPCS: 43239; G0121; 88305; 88342; J2250; J2704

== ENCOUNTER → 2023-06-25 10:49 | Outpatient (BNV) | payer OTHER, SELFPAY | PROVIDERS: PCP Internal Medicine; Visit Provider Internal Medicine Gastroenterology | DX: Z12.11 Encounter for screening for malignant neoplasm of colon (principal); K57.90 Diverticulosis of intestine, part unspecified, without perforation or abscess without bleeding; K64.8 Other hemorrhoids; K31.7 Polyp of stomach and duodenum; K29.70 Gastritis, unspecified, without bleeding | CPT/HCPCS: 43239; 45378 ==

== ENCOUNTER 2023-07-05 14:47 | Outpatient (AMB) | payer OTHER, SELFPAY ==
--- NOTE | 2023-07-05 14:55 | A.OFFVIS_ITS ---
Intake Vital Signs 07/05/23 15:06 Height 5 ft 6 in Weight 230 lb BMI 37.1 BP 127/60 Blood Pressure Location Lt brachial Position Sitting Pulse 82 Intake Visit Reasons: S/p ariela Mojica Intake Note: Patient follow up for EGD/Colonoscopy results Patient denies any GI issues. 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 Mojica She tolerated procedures well [facility] Medical History (Updated 07/05/23 @ 15:06 by Becky Loza PA-C) Moderate recurrent major depression Neck pain BMI 34.0-34.9,adult Leukopenia Sleep apnea Umbilical hernia Liver cyst Obesity (BMI 30-39.9) History of small bowel obstruction Lumbar degenerative disc disease Hematuria Migraines IBS (irritable bowel syndrome) Anemia Arthritis Depression Hypothyroid GERD (gastroesophageal reflux disease) Surgical History (Updated 07/05/23 @ 07:57 by Eloisa Lamb) History of surgical removal of skin lesion History of ankle surgery History of surgery History of hand surgery Hx of foot surgery History of esophagogastroduodenoscopy (EGD) History of surgery H/O hernia repair History of endometrial ablation H/O tubal ligation H/O knee surgery History of delivery History of bladder surgery Hx of colonoscopy (~02/11/23) History of back surgery H/O: hysterectomy History of bilateral knee replacement Family History Father FH: prostate cancer Mother Breast cancer Bladder cancer Social History Household Members: None Housing: House 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) Alcohol intake: never Comment: medicated, see MAR Patient Tobacco Use Status: Former Tobacco user Quit Date: 20 yrs ago Tobacco use type: Cigarette Years Smoked: 25 e-Cigarette/Vaping Use: Never Used Second Hand Smoke Exposure: No service: No Current occupational status: unemployed and disabled Cognitive needs: No Hearing needs: No Vision needs: No Physical Exam Vital Signs: Last Vital Signs Pulse 82 07/05/23 15:06 BP 127/60 07/05/23 15:06 BMI result Body Mass Index 37.1 Results Reviewed Results Reviewed: Findings: Terminal Ileum: Not evaluated Cecum: Normal Ascending Colon: Normal Transverse Colon: Normal Descending Colon: Normal Sigmoid Colon: Moderate diverticulosis Rectum: Normal Ano-rectum: Moderate internal hemorrhoids Colon preparation: Good to Fair despite copious irrigation Impression and Post Procedure Diagnosis: Endoscopy Findings: LARYNX: [] ESOPHAGUS: [] STOMACH: [] DUODENUM: [] Colonoscopy Findings: No polyps were detected Moderate diverticulosis seen in the sigmoid colon Small hemorrhoids on retroflexed exam. Plan: Await pathology results Patient has an appointment on 07/05/23 in the GI Clinic with BRANDON Anguiano. Repeat Colonoscopy interval based on path results - in 3-5 years if polyps are adenomatous and 10 years if polyps are hyperplastic. Above findings were reviewed with the patient and [colon polyps] and [diverticulosis] handouts were given in the discharge area Name: Lizbeth Parekh Age/Sex: 62/F Attending: Ben Mojica MD : 1960 Submitted by: Ben Mojica MD Copies to: Brianda Cotton MD MR #: [id number] Status: [facility] Collected: 06/25/23 Location: [facility] Received: 06/28/23 Diagnosis A. Small bowel, biopsy: Duodenal/small bowel mucosa with preserved villi and no specific change; no evidence of celiac disease. B. Gastric antrum, biopsy: Reactive gastropathy with focal minimal chronic inactive inflammation; negative for H pylori, intestinal metaplasia and dysplasia. C. Gastric polyp, biopsy: Gastric body mucosa with focal minimal chronic inactive inflammation and features suggesting proton pump inhibitor effect; negative for H pylori, intestinal metaplasia and dysplasia. Clinical History Pre-Op Dx: Screening, anemia, constipation Post-Op Dx: Upper: gastritis, gastric polyp; Lower: hemorrhoids, diverticulosis Microscopic Description Microscopic sections reviewed. Immunostains for H pylori on B and C are negative with appropriate control. Material Received A. Bx small bowel (r/o celiac disease) B. Bx gastric antrum (r/o H. pylori) C. Bx gastric polyp Gross Description Received in 3 parts. Part A: Received in formalin labeled ?bx small bowel (celiac disease)? are 2 hines-rodrigues irregular tissue fragments each measuring 0.25 cm, submitted in toto in a cassette labeled A. Part B: Received in formalin labeled ?bx gastric antrum (H. pylori)? are 2 rodrigues irregular tissue fragments measuring 0.1 and 0.35 cm, submitted in toto in a cassette labeled B. Part C: Received in formalin labeled ?gastric polyp? is a 0.25 cm rodrigues irregular tissue fragment submitted in toto in a cassette labeled C. CEDS Patient: Lizbeth Parekh Age/Sex: 62/F MR#: [id number] Page 1 of 2 Assessment & Plan Assessment & Plan (1) Gastritis: Comment: A few 4-5 mm benign appearing polyps in the gastric body - biopsied. Moderate gastric antral erythema with superficial erosions. Biopsies were obtained. Grade 2 flap valve on retroflexed examination of the cardia. Code(s): K29.70 - Gastritis, unspecified, without bleeding (2) Diverticulosis: Code(s): K57.90 - Diverticulosis of intestine, part unspecified, without perforation or abscess without bleeding Plan: HFD food to avoid ER protocol (3) Hemorrhoids: Code(s): K64.9 - Unspecified hemorrhoids Plan: avoid straining HFD- lit given Plan Repeat asymptomatic colonoscopy 5 years Maintain high-fiber diet Avoid straining Diverticulosis/diverticulitis ER protocol review Reflux precautions reviewed PPI daily Medications: New polyethylene glycol 3350 (Miralax) 17 grams PO DAILY 30 ea 5RF docusate sodium (Colace) 200 mg (2 x 100 mg) PO BEDTIME 30 days 60 caps 5RF pantoprazole 40 mg PO DAILY 30 days 30 tabs 11RF hydrocortisone 2.5% (Proctosol HC) 1 appl [place] BEDTIME PRN 30 grams 3RF hemorrhoids Discontinued polyethylene glycol 3350 (Miralax) Discontinued Reason: Patient Completed Course 17 grams PO DAILY 30 ea 5RF polyethylene glycol 3350 (Miralax) Discontinued Reason: Patient Completed Course 17 grams PO DAILY 30 days 510 grams 6RF Patient Instructions: A pleasant 62 y/o follows up after EGD colonoscopy personal history of colon polyps persistent acid reflux Repeat asymptomatic colonoscopy 5 years Maintain high-fiber diet Avoid straining Diverticulosis/diverticulitis ER protocol review Reflux precautions reviewed PPI daily Will follow-up progress in a few weeks for response to PPI patient will call with progress. Coding Level of Care Code Est Pt Level 3 (57438) Diagnoses Gastritis K29.70 Diverticulosis K57.90 Hemorrhoids K64.9 Time Spent (min) 30
[2023-07-05 15:06] VITALS: BP 127/60; PULSE 82; BMI 37.1
== END 2023-07-05 15:45 | disposition home or self-care (01) ==
PROVIDERS: PCP Internal Medicine; Visit Provider Physician Assistant
DX: K29.70 Gastritis, unspecified, without bleeding (principal); K57.90 Diverticulosis of intestine, part unspecified, without perforation or abscess without bleeding; K64.9 Unspecified hemorrhoids
CPT/HCPCS: 99213

== ENCOUNTER → 2023-07-05 14:47 | Outpatient (BNVA) | payer OTHER, SELFPAY | PROVIDERS: PCP Internal Medicine; Visit Provider Physician Assistant | DX: K29.70 Gastritis, unspecified, without bleeding (principal); K57.90 Diverticulosis of intestine, part unspecified, without perforation or abscess without bleeding; K64.9 Unspecified hemorrhoids | CPT/HCPCS: 99212 ==

== ENCOUNTER 2023-08-05 16:29 | Outpatient (AMB) | payer OTHER, SELFPAY ==
[2023-08-05 16:33] VITALS: BP 108/70; BMI 36.8
--- NOTE | 2023-08-05 16:33 | MHC.PC.OV ---
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 Accompanied by: Self / Same As Patient Allergies amoxicillin [Augmentin] Allergy (Intermediate, Verified 08/05/23 16:43) rash cat dander Allergy (Intermediate, Verified 08/05/23 16:43) NASAL SYMPTOMS clavulanic acid [Augmentin] Allergy (Intermediate, Verified 08/05/23 16:43) rash trazodone [TRAZODONE] Allergy (Intermediate, Verified 08/05/23 16:43) I CAN'T BREATHE RIGHT , shortness of breath Medication List - Last Reconciled 08/05/23 by Brianda Grant MD acetaminophen 1,000 mg (2 x 500 mg) PO Q6H PRN 30 days albuterol sulfate 90 mcg/actuation (Ventolin HFA) 2 puffs inhalation Q6H PRN 30 days ascorbic acid (vitamin C) 100 mg PO DAILY calcium carbonate (Calcium 500) 500 mg PO DAILY cholecalciferol (vitamin D3) (Vitamin D3) 25 mcg PO DAILY clonazepam 0.5 mg PO BID PRN docusate sodium (Colace) 200 mg (2 x 100 mg) PO BEDTIME 30 days ferrous sulfate 325 mg PO DAILY 90 days gabapentin 800 mg PO TID 90 days glucosamine HCl 500 mg PO DAILY [hand held showerhead As directed] hydrocortisone 2.5% (Proctosol HC) 1 appl [place] BEDTIME PRN levothyroxine 150 mcg PO DAILY 90 days loratadine (Allergy Relief (loratadine)) 10 mg PO DAILY 90 days melatonin 5 mg PO BEDTIME methylcellulose (laxative) (Citrucel) 500 mg PO BID metronidazole 0.75% 1 appl topical BEDTIME multivitamin 1 tab PO DAILY omega-3 fatty acids (Fish Oil Concentrate) 1,000 mg PO DAILY pantoprazole 40 mg PO DAILY 30 days polyethylene glycol 3350 (Miralax) 17 grams PO DAILY quetiapine 600 mg PO BEDTIME [Shoe lift As directed] tramadol 50 mg PO Q4H PRN 30 days valacyclovir 1,000 mg PO DAILY 90 days venlafaxine ER mg PO venlafaxine ER 75 mg PO DAILY Tobacco use date assessed: 10/06/22 Dental Screening Dental Screen Date: 08/05/23 Did you have a dental visit in the last 12 months?: Yes Did you have a dental problem in the last 6 months where you did not have access to dental care?: No Was dental information given to patient?: Patient has dentist HPI HPI Comments History of Present Illness Details This is a 62-year-old female with lumbar degenerative disc disease, chronic constipation and hypothyroidism that complains of left elbow pain that started few weeks ago. She was on tramadol for years which along with gabapentin take the edge of the pain of her lumbar spine but insurance did not approve tramadol 100 mg therefore I will start her on Belbuca. She is aware that is an opiate. She is also aware that she has to hold tramadol. She was on methadone in the past with great success for her lumbar pain. Has chronic constipation stable with medications. Last TSH was normal. Walks with a cane for gait stability. Has moderate major depression stable with venlafaxine and this is follow by Psychiatry. [facility] Medical History (Updated 08/05/23 @ 17:38 by Brianda Grant MD) Moderate recurrent major depression Neck pain BMI 34.0-34.9,adult Leukopenia Sleep apnea Umbilical hernia Liver cyst Obesity (BMI 30-39.9) History of small bowel obstruction Lumbar degenerative disc disease Hematuria Migraines IBS (irritable bowel syndrome) Anemia Arthritis Depression Hypothyroid GERD (gastroesophageal reflux disease) Surgical History History of surgical removal of skin lesion History of ankle surgery History of surgery History of hand surgery Hx of foot surgery History of esophagogastroduodenoscopy (EGD) History of surgery H/O hernia repair History of endometrial ablation H/O tubal ligation H/O knee surgery History of delivery History of bladder surgery Hx of colonoscopy (~02/11/23) History of back surgery H/O: hysterectomy History of bilateral knee replacement Family History Father FH: prostate cancer Mother Breast cancer Bladder cancer Social History Household Members: None Housing: House 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 Michael Neville, Morena Olson, Jt Hawkins and colleagues, with an educational ayan from [employer]. Review of Systems Const All systems reviewed & are unremarkable except as noted in HPI and below Eyes Reports no additional complaints, Denies change in vision and Denies other visual disturbances Card Denies chest pain at rest, Denies chest pain with activity, Denies edema, Denies irregular heart rhythm, Denies claudication, Denies dyspnea, Denies dyspnea on exertion, Denies orthopnea, Denies paroxysmal nocturnal dyspnea and Denies slow heart rate Resp Denies cough, Denies dyspnea and Denies dyspnea on exertion GI Denies abdominal pain, Denies change in bowel habits, Denies excessive flatus, Denies nausea and Denies vomiting Denies urinary incontinence, Denies urinary hesitancy and Denies urinary urgency Musc Denies abnormal gait, Reports back pain, Denies atrophy, Denies deformity and Denies limited range of motion Skin/Breast Denies bleeding lesions, Denies changing lesions and Denies rash Neuro Denies abnormal gait, Denies behavioral changes and Denies lack of coordination Psych Denies behavioral changes Physical exam (Primary Care) Vital Signs: Last Vital Signs BP 108/70 08/05/23 16:33 BMI result Body Mass Index 36.8 Tobacco/Smoking Status: Tobacco use Status Tobacco use date assessed 10/06/22 08/05/23 16:40 Patient Tobacco Use Status Former Tobacco user 08/05/23 16:40 Tobacco use type Cigarette 08/05/23 16:40 e-Cigarette/Vaping Use Never Used 08/05/23 16:40 Thrive Assessment: Date of Thrive Assessment Date Thrive assessed 10/06/22 08/05/23 16:40 Eyes General: appearance normal, both eyes and all related structures Eyelids: Yes eyelids normal Conjunctivae: conjunctivae normal Neck Neck: Yes normal visual inspection and Yes supple Resp Effort & Inspection: normal respiratory effort Auscultation: clear to auscultation bilaterally Cardio Jugular venous distension: no JVD Rate: regular rate Rhythm: regular rhythm Heart sounds: S1 normal heart sound present and S2 normal heart sound present Extrem General: Yes full ROM Assessment and Plan Assessment & Plan (1) Moderate recurrent major depression: Code(s): F33.1 - Major depressive disorder, recurrent, moderate Plan: Continue venlafaxine. (2) Left elbow pain: Code(s): M25.522 - Pain in left elbow Plan: Referred to occupational therapy. 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 (4) Lumbar degenerative disc disease: Code(s): M51.36 - Other intervertebral disc degeneration, lumbar region Plan: Start belbuca. (5) Chronic constipation: Comment: Colace, miralax, citrucel- HFD-typically managed with bowel regimen Code(s): K59.09 - Other constipation Plan: Continue colace prn. Orders: Orders Complete Blood Count Auto Diff 3 Months D64.9 - Anemia, unspecified Thyroid Stimulating Hormone 3 Months E03.9 - Hypothyroidism, unspecified Lipid Panel 3 Months Z00.00 - Encounter for general adult medical examination without abnormal findings OT Evaluation and Treatment Today M25.522 - Pain in left elbow Vitamin D 25-OH Total 3 Months E55.9 - Vitamin D deficiency, unspecified IRON PROFILE 3 Months D64.9 - Anemia, unspecified Comprehensive [place]. 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
== END 2023-08-05 16:57 | disposition home or self-care (01) ==
PROVIDERS: PCP Internal Medicine; Visit Provider Internal Medicine
DX: F33.1 Major depressive disorder, recurrent, moderate (principal); M25.522 Pain in left elbow; E03.8 Other specified hypothyroidism; E06.3 Autoimmune thyroiditis; M51.36 Other intervertebral disc degeneration, lumbar region; K59.09 Other constipation
CPT/HCPCS: 99214

== ENCOUNTER 2023-08-11 13:24 | Outpatient (AMB) | payer OTHER, SELFPAY ==
--- NOTE | 2023-08-11 14:13 | MHC.OFFWIV ---
Intake Vital Signs 08/11/23 14:21 Height 5 ft 6 in Weight 228 lb BMI 36.8 BP 112/72 Blood Pressure Location Lt brachial Position Sitting Pulse 88 Pulse Source Pulse Oximeter Temp 97.8 F Temp Source Oral Pulse Oximetry (%) 97 Oxygen Delivery Method Room Air Intake Visit Reasons: EP, chest congestion ([phone]) Intake Note: Pt is here c/o chest congestion for 3 days. Patient Tobacco Use Status: Former Tobacco user Quit Date: 20 yrs ago Allergies amoxicillin [Augmentin] Allergy (Intermediate, Verified 08/11/23 14:53) rash cat dander Allergy (Intermediate, Verified 08/11/23 14:53) NASAL SYMPTOMS clavulanic acid [Augmentin] Allergy (Intermediate, Verified 08/11/23 14:53) rash trazodone [TRAZODONE] Allergy (Intermediate, Verified 08/11/23 14:53) I CAN'T BREATHE RIGHT , shortness of breath Medication List - Last Reconciled 08/11/23 by [place] MD acetaminophen 1,000 mg (2 x 500 mg) PO Q6H PRN 30 days albuterol sulfate 90 mcg/actuation (Ventolin HFA) 2 puffs inhalation Q6H PRN 30 days ascorbic acid (vitamin C) 100 mg PO DAILY azithromycin take 500 mg today (day 1), then 250 mg for 4 days (days 2-5) PO buprenorphine HCl (Belbuca) 75 mcg buccal Q12H 30 days calcium carbonate (Calcium 500) 500 mg PO DAILY cholecalciferol (vitamin D3) (Vitamin D3) 25 mcg PO DAILY clonazepam 0.5 mg PO BID PRN docusate sodium (Colace) 200 mg (2 x 100 mg) PO BEDTIME 30 days ferrous sulfate 325 mg PO DAILY 90 days gabapentin 800 mg PO TID 90 days glucosamine HCl 500 mg PO DAILY [hand held showerhead As directed] hydrocortisone 2.5% (Proctosol HC) 1 appl [place] BEDTIME PRN levothyroxine 150 mcg PO DAILY 90 days loratadine (Allergy Relief (loratadine)) 10 mg PO DAILY 90 days melatonin 5 mg PO BEDTIME methylcellulose (laxative) (Citrucel) 500 mg PO BID metronidazole 0.75% 1 appl topical BEDTIME multivitamin 1 tab PO DAILY omega-3 fatty acids (Fish Oil Concentrate) 1,000 mg PO DAILY pantoprazole 40 mg PO DAILY 30 days polyethylene glycol 3350 (Miralax) 17 grams PO DAILY quetiapine 600 mg PO BEDTIME [Shoe lift As directed] valacyclovir 1,000 mg PO DAILY 90 days venlafaxine ER mg PO venlafaxine ER 75 mg PO DAILY Do you need a note to return to daycare/school/sports/work: No HPI EP, chest congestion ([phone]) HPI Details Patient presents for a sick visit. Reporting symptoms of sinus congestion, sore throat and difficulty swallowing. Low-grade fever. No family member is sick. No recent travel. Patient reports symptoms of malaise and fatigue. [facility] Medical History (Updated 08/05/23 @ 17:38 by Brianda Grant MD) Moderate recurrent major depression Neck pain BMI 34.0-34.9,adult Leukopenia Sleep apnea Umbilical hernia Liver cyst Obesity (BMI 30-39.9) History of small bowel obstruction Lumbar degenerative disc disease Hematuria Migraines IBS (irritable bowel syndrome) Anemia Arthritis Depression Hypothyroid GERD (gastroesophageal reflux disease) Surgical History History of surgical removal of skin lesion History of ankle surgery History of surgery History of hand surgery Hx of foot surgery History of esophagogastroduodenoscopy (EGD) History of surgery H/O hernia repair History of endometrial ablation H/O tubal ligation H/O knee surgery History of delivery History of bladder surgery Hx of colonoscopy (~02/11/23) History of back surgery H/O: hysterectomy History of bilateral knee replacement Family History Father FH: prostate cancer Mother Breast cancer Bladder cancer Social History Household Members: None Housing: House 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) Alcohol intake: never Comment: medicated, see MAR Patient Tobacco Use Status: Former Tobacco user Quit Date: 20 yrs ago Tobacco use type: Cigarette Years Smoked: 25 e-Cigarette/Vaping Use: Never Used Second Hand Smoke Exposure: No service: No Current occupational status: unemployed and disabled Cognitive needs: No Hearing needs: No Vision needs: No Physical Exam Vital Signs: Last Vital Signs Temp 97.8 F 08/11/23 14:21 Pulse 88 08/11/23 14:21 BP 112/72 08/11/23 14:21 Pulse Ox 97 08/11/23 14:21 Oxygen Delivery Method Room Air 08/11/23 14:21 BMI result Body Mass Index 36.8 Const General: cooperative and healthy appearing Nutritional Appearance: well nourished Orientation/consciousness: patient oriented x3 Limitations: no limitations HEENT Head: Yes normal to inspection Eyes General: appearance normal, both eyes and all related structures Neck Neck: Yes normal visual inspection Chest Chest palpation & inspection: normal palpation of entire chest wall Resp Effort & Inspection: normal respiratory effort Neuro General: patient oriented x3 Assessment & Plan Assessment & Plan (1) Upper respiratory tract infection: Code(s): J06.9 - Acute upper respiratory infection, unspecified Plan: Antibiotics ordered. Increase fluid intake. Tylenol for aches and pains. If symptoms worsen, follow-up here for a recheck. Medications: New azithromycin take 500 mg today (day 1), then 250 mg for 4 days (days 2-5) PO 6 tabs 0RF Coding Level of Care Code Est Pt Level 3 (98329) Diagnoses Upper respiratory tract infection J06.9
[2023-08-11 14:21] VITALS: BP 112/72; PULSE 88; TEMP 36.6; O2SAT 97; BMI 36.8
== END 2023-08-11 15:10 | disposition home or self-care (01) ==
PROVIDERS: PCP Internal Medicine; Visit Provider Internal Medicine
DX: J06.9 Acute upper respiratory infection, unspecified (principal)
CPT/HCPCS: 99213

== ENCOUNTER 2023-09-06 15:30 | Outpatient (RCR) | payer OTHER, SELFPAY ==
--- NOTE | 2023-08-23 16:29 | MHC.OT.EP ---
[address] [phone] Occupational Therapy Plan of Care Patient Name: Lizbeth Parekh Date of Evaluation: 08/23/23 Diagnosis: Left elbow pain Pain Location: 0-10/10 left elbow , ache Pain Score: 10 Pain Scale Used: Numeric (0 - 10) Aggravating Factors: Pushing , weight bearing on left hand Alleviating Factors: Assessment: Pt is a 62 yo female with a recent worsening of left elbow pain leading to elbow bursitis. Pt a history of multiple lower extremity surgeries including right femur, left ankle , bilateral knees and left toes. She uses her arms for support on the treadmill and elliptical at [employer] and tends to use her arms for support with standing and pushing up from a chair,. Pt ambulates with a cane for balance Today patient presents with left elbow bursitis , left elbow 2.5 cm larger the the right and complaint of left elbow pain with pushing . Her goal is to push a shopping cart without elbow pain Pt will benefit from OT to improve left elbow bursitis for full use of her left non dominant arm with daily actiivties Frequency and Duration: The patient will be seen 2x wk x 4 wks Short Term Goals: Decrease left elbow pain to 5/10 at worst Demo indep in UE ther ex for LUE decongestion Left elbow circumference to >27.5 cm Senior Care Goals: Decrease left elbow pain to occasional with activity modification as needed Decrease left elbow circumference to 26.5 cm Pain free left elbow with partial wt bearing up to 50 lb on a non digit scale Quick DASH to < 30 pts Treatment Plan: Therapeutic Exercise Therapeutic Activity Home Exercise Program Patient Education Edema Control ADL Training Kinesiotaping Electronically Signed By: Belen Childers OT CHT CLT Please Sign and return to therapist. Thank you once again for your referral.
--- NOTE | 2023-09-28 08:21 | MHC.OT.DC ---
[address] [phone] F: [phone] Occupational Therapy Discharge Note Patient Name: Lizbeth Parekh Provider: Brianda Grant Diagnosis: Left elbow pain Date of Surgery: Date of Evaluation: 08/23/23 Date of Discharge: 09/28/23 Treatments to Date: 4 Cancellations to Date: No Shows to Date: Discharge Status: Achieved Goals Improved Function Independent with HEP Discharge Summary: Good decrease in left elbow bursa noted and improvement in complaint of elbow pain from 03/18 to 01/16 Pt elbow pain aggravated by weight bearing to push up from a chair and out of bed Pt is independent in use of CP for pain, exercise for elbow stablization , Taping for lymphatic correction Pt also working on lower body strengthening for decrease dependence of UE sit to stand Pt will benefit from continued HEP/ self management of elbow bursitis Electronically Signed By: Belen Childers OT CHT CLT Reviewed/agree with student documentation: Therapist: Please Sign and return to therapist, thank you for your referral.
== END 2023-09-28 08:22 | disposition home or self-care (01) ==
LOC: HO.OT 15:30
PROVIDERS: PCP Internal Medicine; Visit Provider Internal Medicine
DX: M25.522 Pain in left elbow (principal)
CPT/HCPCS: 97033; 97110; 97140; 97166

== ENCOUNTER 2023-10-07 16:27 | Outpatient (REF) | payer OTHER, SELFPAY ==
[2023-10-07 16:46] LABS: MANUAL DIFF FLAG NO
[2023-10-07 17:39] LABS: Basophils Percent Auto 0.6 % (0-2); Eosinophils Absolute Auto 0.1 X10*3/uL (0.0-0.4); Eosinophils Percent Auto 1.5 % (0-4); Hematocrit 37.6 % (37.0-47.0); Hemoglobin 12.1 g/dl (12.0-16.0); Imm Gran Abs Auto 0.01 X10*3/uL (0.00-0.03); Imm Gran Pct Auto 0.2 % (0.0-0.4); Lymphocytes Percent Auto 43.7 % (20-40); Mean Corpuscular HGB Conc 32.2 g/dl (31.0-35.0); Mean Corpuscular Hemoglobin 30.9 pg (27.0-33.0); Mean Corpuscular Volume 95.9 fL (80.0-98.0); Mean Platelet Volume 10.3 fL (9.4-12.3); Monocytes Absolute Auto 0.4 X10*3/uL (0.1-1.2); Monocytes Percent Auto 8.6 % (2-11); Neutrophils Absolute Auto 2.1 x10*3/uL (2.0-8.3); Neutrophils Percent Auto 45.4 % (45-73); Platelet Count 207 X10*3/uL (160-400); Red Blood Count 3.92 X10*6/uL (4.20-5.50); Red Cell Distribution Width 13.4 % (11.0-16.0); White Blood Count 4.7 X10*3/uL (4.8-10.8)
[2023-10-07 18:17] LABS: Alanine Aminotransferase 13 U/L (0-31); Albumin Level 4.3 g/dL (3.5-5.0); Alkaline Phosphatase 97 U/L (39-117); Anion Gap 13 (12-20); Aspartate Amino Transferase 21 U/L (5-31); Bilirubin Total 0.2 mg/dL (0.0-1.0); Blood Urea Nitrogen 22 mg/dL (9-16); Calcium 9.7 mg/dL (8.4-10.2); Carbon Dioxide 30 mmol/L (22-29); Chloride 103 mmol/L (96-108); Cholesterol 222 mg/dL (<200); Estimated Glomerular Filt Rate > 60; Glucose Fasting 79 mg/dL (60-99); HDL Cholesterol 53 mg/dL (>40); Iron 61 mcg/dL (30-160); LDL Cholesterol Calculated 148 mg/dL (<100); Percent Iron Saturation 25 % (15-50); Potassium 4.8 mmol/L (3.3-5.1); Sodium 141 mmol/L (135-145); Total Iron Binding Capacity 244 mcg/dL (228-428); Total Protein 7.2 g/dL (6.5-8.0); Triglycerides 108 mg/dL (<150); Unsaturated Iron Binding 183 ug/dL
[2023-10-07 18:33] LABS: Thyroid Stimulating Hormone 3.03 uIU/mL (0.32-4.0); Vitamin D 25-OH Total 58.2 ng/mL (>30)
== END 2023-10-07 16:28 | disposition home or self-care (01) ==
LOC: HO.LAB 16:27
PROVIDERS: PCP Internal Medicine; Visit Provider Internal Medicine
DX: Z00.00 Encounter for general adult medical examination without abnormal findings (principal); E55.9 Vitamin D deficiency, unspecified; E03.9 Hypothyroidism, unspecified; D64.9 Anemia, unspecified
CPT/HCPCS: 36415; 80053; 80061; 82306; 83540; 84443; 85025

== ENCOUNTER 2023-10-12 17:18 | Outpatient (AMB) | payer OTHER, SELFPAY ==
--- NOTE | 2023-10-12 17:24 | A.OFFPC_ITS ---
Vital Signs 10/12/23 17:26 Height 5 ft 6 in Weight 233 lb BMI 37.6 BP 120/78 Blood Pressure Location Lt brachial Position Sitting Intake Visit Reasons: Annual Exam Intake Note: patient here for a physical exam Rn Procedure Required: No Accompanied by: Self / Same As Patient Allergies amoxicillin [Augmentin] Allergy (Intermediate, Verified 10/12/23 17:41) rash cat dander Allergy (Intermediate, Verified 10/12/23 17:41) NASAL SYMPTOMS clavulanic acid [Augmentin] Allergy (Intermediate, Verified 10/12/23 17:41) rash trazodone [TRAZODONE] Allergy (Intermediate, Verified 10/12/23 17:41) I CAN'T BREATHE RIGHT , shortness of breath Medication List - Last Reconciled 10/12/23 by Brianda Grant MD acetaminophen 1,000 mg (2 x 500 mg) PO Q6H PRN 30 days albuterol sulfate 90 mcg/actuation (Ventolin HFA) 2 puffs inhalation Q6H PRN 30 days albuterol sulfate 90 mcg/actuation (Ventolin HFA) 2 puffs inhalation Q6H PRN 30 days ascorbic acid (vitamin C) 100 mg PO DAILY calcium carbonate (Calcium 500) 500 mg PO DAILY cholecalciferol (vitamin D3) (Vitamin D3) 25 mcg PO DAILY clonazepam 0.5 mg PO BID PRN docusate sodium (Colace) 200 mg (2 x 100 mg) PO BEDTIME 30 days ferrous sulfate 325 mg PO DAILY 90 days gabapentin 800 mg PO TID 90 days glucosamine HCl 500 mg PO DAILY [hand held showerhead As directed] hydrocortisone 2.5% (Proctosol HC) 1 appl [place] BEDTIME PRN levothyroxine 150 mcg PO DAILY 90 days loratadine (Allergy Relief (loratadine)) 10 mg PO DAILY 90 days melatonin 5 mg PO BEDTIME methylcellulose (laxative) (Citrucel) 500 mg PO BID metronidazole 0.75% 1 appl topical BEDTIME morphine ER 30 mg PO DAILY 30 days multivitamin 1 tab PO DAILY omega-3 fatty acids (Fish Oil Concentrate) 1,000 mg PO DAILY pantoprazole 40 mg PO DAILY 30 days polyethylene glycol 3350 (Miralax) 17 grams PO DAILY quetiapine 600 mg PO BEDTIME [Shoe lift As directed] tramadol 100 mg (2 x 50 mg) PO Q6H 30 days valacyclovir 1,000 mg PO DAILY 90 days venlafaxine ER mg PO venlafaxine ER 75 mg PO DAILY Tobacco use date assessed: 10/12/23 Dental Screening Dental Screen Date: 10/12/23 Did you have a dental visit in the last 12 months?: Yes Did you have a dental problem in the last 6 months where you did not have access to dental care?: No Was dental information given to patient?: Patient has dentist HPI HPI Comments History of Present Illness Details This is a 62-year-old female with moderate recurrent major depression that comes for her physical exam. Depression has been stable with medications and this is follow by Psychiatry. Last mammogram was 2022. Last colonoscopy was June 2023. No need for Pap smear due to hysterectomy for benign reasons. Labs were discussed and I will discontinue ferrous sulfate due to a normal hemoglobin. Had endoscopy ruling out celiac disease. No chest pain or shortness of breath. [facility] Medical History Moderate recurrent major depression Neck pain BMI 34.0-34.9,adult Leukopenia Sleep apnea Umbilical hernia Liver cyst Obesity (BMI 30-39.9) History of small bowel obstruction Lumbar degenerative disc disease Hematuria Migraines IBS (irritable bowel syndrome) Anemia Arthritis Depression Hypothyroid GERD (gastroesophageal reflux disease) Surgical History History of surgical removal of skin lesion History of ankle surgery History of surgery History of hand surgery Hx of foot surgery History of esophagogastroduodenoscopy (EGD) History of surgery H/O hernia repair History of endometrial ablation H/O tubal ligation H/O knee surgery History of delivery History of bladder surgery Hx of colonoscopy (~02/11/23) History of back surgery H/O: hysterectomy History of bilateral knee replacement Family History Father FH: prostate cancer Mother Breast cancer Bladder cancer Social History Household Members: None Housing: House 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 1. Little interest or pleasure in doing things: not at all 2. Feeling down, depressed, or hopeless: not at all 3. Trouble falling or staying asleep, or sleeping too much: not at all 4. Feeling tired or having little energy: not at all 5. Poor appetite or overeating: not at all 6. Feeling bad about yourself - or that you are a failure or have let yourself or your family down: not at all 7. Trouble concentrating on things, such as reading the newspaper or watching television: not at all 8. Moving or speaking so slowly that other people could have noticed. Or the opposite - being so fidgety or restless that you have been moving around a lot more than usual: not at all 9. Thoughts that you would be better off or of hurting yourself in some way: not at all Total score: 0 Depression Screening Interpretation: Negative Depression Screening Done: Yes 95471 - PHQ-9 Billing: Yes Source: Developed by Drs. Michael Neville, Morena Olson, Jt Hawkins and colleagues, with an educational ayan from [employer]. Thrive Questionnaire Date Thrive assessed: 10/12/23 I am a: Patient What is your living situation today?: I have a steady place to live Within the past 12 months, did the food you bought not last and you didn't have the money to get more?: Never true Within the past 12 months, did you worry whether your food would run out before you got money to buy more?: Never true Do you have trouble paying for medicines?: No Do you have trouble getting transportation to medical appointments?: No Do you have trouble paying your heating and electricity bill?: No Do you have trouble taking care of your child, family member or friend?: No Do you have trouble with day-to-day activities such as bathing, preparing meals, shopping, managing finances, etc.?: No Are you currently unemployed and looking for a job?: No Are you interested in more education?: No Please select the resources that you would like help with: None Currently or been in a relationship where the following occur: no concerns reported THRIVE Score: 0 AUDIT C Alcohol Use Questionnaire (AUDIT-C) 1. How often do you have a drink containing alcohol?: Never Total Score: 0 DB-7 AMB Questionnaire DB-7 Date DB - 7 assessed: 10/12/23 Feeling nervous, anxious, or on edge: 0 = Not at all Not being able to stop or control worryin = Not at all Worrying too much about different things: 0 = Not at all Trouble relaxin = Not at all Being so restless that it is hard to sit still: 0 = Not at all Becoming easily annoyed or irritable: 0 = Not at all Feeling afraid as if something awful might happen: 0 = Not at all Total DB-7 score (0-4 normal; 5-9 mild; 10-14 moderate; 15-21 severe): 0 Source: Developed by Drs. Michael Nevilel, Morena Olson, Jt Hawkins and colleagues, with an educational ayan from [employer]. DB-7 Assessment Billing DB-7 Assessment Tool: DB-7 Assessment 66608 Review of Systems Const All systems reviewed & are unremarkable except as noted in HPI and below Eyes Reports no additional complaints, Denies change in vision and Denies other visual disturbances Card Denies chest pain at rest, Denies chest pain with activity, Denies edema, Denies irregular heart rhythm, Denies claudication, Denies dyspnea, Denies dyspnea on exertion, Denies orthopnea, Denies paroxysmal nocturnal dyspnea and Denies slow heart rate Resp Denies cough, Denies dyspnea and Denies dyspnea on exertion GI Denies abdominal pain, Denies change in bowel habits, Denies excessive flatus, Denies nausea and Denies vomiting Denies urinary incontinence, Denies urinary hesitancy and Denies urinary urgency Musc Denies abnormal gait, Denies atrophy, Denies deformity and Denies limited range of motion Skin/Breast Denies bleeding lesions, Denies changing lesions and Denies rash Neuro Denies abnormal gait, Denies behavioral changes, Denies confusion and Denies lack of coordination Psych Denies behavioral changes and Denies confusion Physical exam (Primary Care) Vital Signs: Last Vital Signs BP 120/78 10/12/23 17:26 BMI result Body Mass Index 37.6 Tobacco/Smoking Status: Tobacco use Status Tobacco use date assessed 10/12/23 10/12/23 17:32 Patient Tobacco Use Status Former Tobacco user 10/12/23 17:32 Tobacco use type Cigarette 10/12/23 17:32 e-Cigarette/Vaping Use Never Used 10/12/23 17:32 PHQ-9: PHQ-9 Score PHQ-9: Total score 0 10/12/23 17:39 Depression Screening Interpretation: Negative Thrive Assessment: Date of Thrive Assessment Date Thrive assessed 10/12/23 10/12/23 17:32 Currently or been in a relationship where the following occur: no concerns reported Const General: No confusion Orientation/consciousness: patient oriented x3 and No confusion HENMT Head: Yes normal to inspection, Yes normocephalic and Yes atraumatic Ears: external ears normal Eyes General: appearance normal, both eyes and all related structures Eyelids: Yes eyelids normal Conjunctivae: conjunctivae normal Neck Neck: Yes normal visual inspection and Yes supple Resp Effort & Inspection: normal respiratory effort Auscultation: clear to auscultation bilaterally Cardio Jugular venous distension: no JVD Rate: regular rate Rhythm: regular rhythm Heart sounds: S1 normal heart sound present and S2 normal heart sound present GI Inspection: Yes normal to inspection Palpation (GI): Soft to palpation and nontender Auscultation: normal bowel sounds Skin General skin exam: no rashes or lesions noted Neuro General: patient oriented x3, no focal motor deficits and No confusion Extrem General: Yes full ROM Psych Appearance: grossly normal Assessment and Plan Assessment & Plan (1) Physical exam: Code(s): Z00.00 - Encounter for general adult medical examination without abnormal findings Plan: Repeat in a year. (2) Moderate recurrent major depression: Code(s): F33.1 - Major depressive disorder, recurrent, moderate Plan: Continue Seroquel. Follow-up with psychiatry. Orders: Orders Complete Blood Count Auto Diff 6 Months D64.9 - Anemia, unspecified IRON PROFILE 6 Months D64.9 - Anemia, unspecified Thyroid Stimulating Hormone 6 Months E03.9 - Hypothyroidism, unspecified Medications: Refilled levothyroxine 150 mcg PO DAILY 90 days 90 tabs 0RF Discontinued ferrous sulfate Discontinued Reason: No Longer Medically Relevant 325 mg PO DAILY 90 days 90 tabs 3RF Coding Level of Care Code Est Pt Prev Care 40-64y(76262) Diagnoses Physical exam Z00.00 Moderate recurrent major depression F33.1 Additional Codes DB-7 Assessment Billing - DB-7 Assessment Tool: DB-7 Assessment 18142 ([id number]) Time Spent (min) 31
[2023-10-12 17:26] VITALS: BP 120/78; BMI 37.6
== END 2023-10-12 18:01 | disposition home or self-care (01) ==
LOC: HO.HMGH 17:19
PROVIDERS: PCP Internal Medicine; Visit Provider Internal Medicine
DX: Z00.00 Encounter for general adult medical examination without abnormal findings (principal); F33.1 Major depressive disorder, recurrent, moderate; Z90.710 Acquired absence of both cervix and uterus; D50.9 Iron deficiency anemia, unspecified
CPT/HCPCS: 99396

== ENCOUNTER 2023-10-29 15:27 | Outpatient (REF) | payer OTHER, SELFPAY ==
--- NOTE | ~2023-10-29 | MM_ITS ---
EXAMINATION: MM SCREENING DIGITAL BREAST TOMOSYNTHESIS, BILATERAL CLINICAL INFORMATION: Screening. Asymptomatic. COMPARISON: Mammography: 10/23/2022, 10/17/2021, 06/18/2020, 01/09/2019 TECHNIQUE: Digital breast tomosynthesis is performed in both the craniocaudal and mediolateral oblique views along with computer-aided detection (CAD). Synthesized 2D images are generated from the tomosynthesis. FINDINGS: There are scattered areas of fibroglandular density (ACR BI-RADS breast composition Category b). Post benign biopsy clip in the slightly lateral anterior left breast, unchanged. There are no suspicious masses, suspicious grouped calcifications, or areas of architectural distortion in either breast. The parenchymal pattern is stable from prior exams. No skin or axillary abnormality. MM/MM tomosynthesis screening BI IMPRESSION: No mammographic evidence of malignancy. ASSESSMENT: BI-RADS BI-RADS 2 - Benign Findings RECOMMENDATION: Routine annual mammography screening. 1 year F/U This examination should not preclude the clinical evaluation of a suspicious palpable abnormality. This patient's information was entered into a reminder system with a target due date for their next mammogram.
== END 2023-10-29 15:28 | disposition home or self-care (01) ==
LOC: HO.MAMMO 15:27
PROVIDERS: PCP Internal Medicine; Visit Provider Internal Medicine
DX: Z12.31 Encounter for screening mammogram for malignant neoplasm of breast (principal)
CPT/HCPCS: 77063; 77067

== ENCOUNTER → 2023-10-29 15:45 | Outpatient (BNV) | payer OTHER, SELFPAY | PROVIDERS: PCP Internal Medicine; Visit Provider Radiology Diagnostic Radiology | DX: Z12.31 Encounter for screening mammogram for malignant neoplasm of breast (principal) | CPT/HCPCS: 77063; 77067 ==

== ENCOUNTER 2023-12-13 14:56 | Outpatient (AMB) | payer OTHER, SELFPAY ==
--- NOTE | 2023-12-13 14:57 | A.OFFVIS_ITS ---
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 She was last seen in our office by Dr. Mahoney in October 2021 with plans to undergo Fentanyl ITDD trial under sedation but opted out. Patient also had Dilaudid trial which results in bad side effects of itching for 24 hours and Medtronic SCS trial which provided her only 50% pain relief. Prialt, clonidine and bupivacaine trials were also previously discussed. Patient reports her back pain has been progressively increasing and she is no longer able to manage it on tramadol and low dose Butrans patch. She is interested to return to neuromodulation with ITDD trial and potentially implant. Back pain is localized mainly to the right side and also extends across her lower back and sacral area on the right. She also has significant groin and hip pain, worse on the right with walking and weight bearing, prolonged standing or changing positions. Pain is described as constant stabbing, sharp, punching, cramping, hurting, aching, heavy, spreading and radiating. Patient reports fragmented sleep due to constant awakening during the night due to pain. She has been alternating ice and heat packs, gabapentin and meloxicam with continued symptoms. Patient reports mechanical fall this morning and has landed on her right side of the back. There is a notable linear abrasion on her right lower paraspinal side without swelling or bruising. Most recent CT scan abdomen and pelvis showed advanced degenerative osteoarthritis of the bilateral hips. PRIOR 10/15/21 Dr. Mahoney: Violetta is 60 years old female who is in the phone today with a history of longstanding back pain. Her pain is across her entire low back and radiates down right leg with associated numbness of entire foot. She notes weakness of bilateral legs occasionally. She denies any bowel/bladder dysfunction or saddle anesthesia. She is s/p a right L4-5 [place] [address] Hudson with no improvements in her pain. She was previously under the care of [facility] who noted they exhausted all efforts to alleviate her pain with no improvements. She is currently at the max dose of Tramadol and has been on this medication for years. She reports minimal alleviation in her pain at this point, despite maximum dose. She attended physical therapy a few months ago with no noticeable change in her pain. She also had chiropractic manipulation but notes no improvement in pain. She denies massage or acupuncture. She last had a lumbar spine MRI in 2019, dictated below. She went for trial of spinal cord stimulator Eventifier with me ring and she did not like the results of the stimulation although the anatomical location of stimulation was appropriate. In the past we discussed I DDD to treat her pain. We decided to perform trial of Dilaudid she received 80 micro g for the trial. She reported only 50% pain improvement. She reported severe itching for 24 hours after the injection. Therefore Dilaudid is not her medication. We discussed trial with fentanyl. She agreed to go for trial. I also mentioned nonopioid medications as a trial possibilities. We could try clonidine and bupivacaine is a trial. I also explain her Prialt trial and she will be calling [facility] and find out whether the medication is prohibitive for her in terms of the cost. Meanwhile schedule her for fentanyl trial. [facility] Medical History Moderate recurrent major depression Neck pain BMI 34.0-34.9,adult Leukopenia Sleep apnea Umbilical hernia Liver cyst Obesity (BMI 30-39.9) History of small bowel obstruction Lumbar degenerative disc disease Hematuria Migraines IBS (irritable bowel syndrome) Anemia Arthritis Depression Hypothyroid GERD (gastroesophageal reflux disease) Surgical History History of surgical removal of skin lesion History of ankle surgery History of surgery History of hand surgery Hx of foot surgery History of esophagogastroduodenoscopy (EGD) History of surgery H/O hernia repair History of endometrial ablation H/O tubal ligation H/O knee surgery History of delivery History of bladder surgery Hx of colonoscopy (~02/11/23) History of back surgery H/O: hysterectomy History of bilateral knee replacement Family History Father FH: prostate cancer Mother Breast cancer Bladder cancer Social History Household Members: None Housing: House 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) Alcohol intake: never Comment: medicated, see MAR Patient Tobacco Use Status: Former Tobacco user Quit Date: 20 yrs ago Tobacco use type: Cigarette Years Smoked: 25 e-Cigarette/Vaping Use: Never Used Second Hand Smoke Exposure: No service: No Current occupational status: unemployed and disabled Cognitive needs: No Hearing needs: No Vision needs: No Review of Systems Const All systems reviewed & are unremarkable except as noted in HPI and below Physical Exam Vital Signs: Last Vital Signs Pulse 75 12/13/23 15:01 BP 113/65 12/13/23 15:01 Pulse Ox 97 12/13/23 15:01 Oxygen Delivery Method Room Air 12/13/23 15:01 BMI result Body Mass Index 38.7 General: Appears afebrile. Alert and oriented. Mood and affect appropriate. Follows and participates in conversation appropriately. Respiratory effort is unlabored. No cough. Able to transition from sit to stand unassisted. Uses cane with ambulation. Back/Spine/Pelvis Other: Patient able to walk on heels with no difficulties demonstrating good motor tone. Uses cane. She is unable to walk on her toes due to fusion of toes on left and left ankle surgery resulting in limited ROM. Can flex forward to 60-70 degrees and extend to 5-10 degrees before experiencing lumbar pain. Demonstrates 5/5 strength of quadriceps bilaterally as well as flexion/dorsiflexion of bilateral feet against resistance. 2+ pedal pulses bilaterally. Moderate groin pain with I/E hip rotations, right worse than left. Straight leg rise with dorsiflexion positive bilaterally, left>right. Diminished DTRs bilaterally. Unable to perform Zaheer test bilaterally d/t stiffness and pain. Linear abrasion noted on right lower paraspinal side without swelling or bruising. Cervical Spine: cervical ROM normal, cervical muscular tenderness and No Cervical spine tenderness Thoracic/Lumbar Spine: thoracic and lumbar spine normal to inspection, Thoracic/lumbar spine scar(s), pain with thoraco-lumbar ROM, paraspinal muscle tenderness, thoraco-lumbar ROM limited, No thoracic spinal tenderness and lumbar spinal tenderness at L4 and at L5 Results Reviewed Results Reviewed: CT ABDOMEN AND PELVIS WITHOUT CONTRAST 01/28/23 OSSEOUS STRUCTURES: Advanced degenerative osteoarthritis of the bilateral hips with numerous very prominent subchondral cysts. IMPRESSION: Advanced degenerative osteoarthritis of the bilateral hips. MR LUMBAR SPINE WITHOUT CONTRAST 07/19/2018 CLINICAL INFORMATION: Right-sided lower back pain. Right-sided sciatica. COMPARISON: Lumbar spine radiographs dated 04/07/2018 FINDINGS: Review of the prior radiograph demonstrates hypoplastic 12th ribs. For the purposes of this dictation, the L5-S1 level is the last full intervertebral disc. VERTEBRAL BODIES AND PARASPINAL STRUCTURES: Lumbar vertebral bodies are within normal limits for height and sagittal alignment. No suspicious marrow replacing lesions are identified. Multilevel disc degeneration is seen with moderate to severe loss of intervertebral disc height and associated degenerative endplate changes at L5-S1. Degenerative endplate changes are seen as well as multilevel Schmorl's node formation is seen elsewhere in the lumbar spine. There is likely mild loss of intervertebral disc height at L1-L2, L2-L3 and L4-L5. There is atrophy of the lower paraspinal musculature. CONUS MEDULLARIS AND CAUDA EQUINA: Normal, terminating at the level of T12-L1. SPINAL LEVELS: T12-L1: No significant spinal canal or neural foraminal stenosis. L1-L2: Small disc bulge as well as ligamentous/facet hypertrophy though without significant spinal canal or neural foraminal stenosis. There is bilateral subarticular zone narrowing which approximates the traversing L2 nerve roots though without mass effect. L2-L3: Small disc bulge as well as ligamentous/facet hypertrophy though without significant spinal canal or left neural foraminal stenosis . There is minimal right neural foraminal stenosis without mass effect on the exiting nerve root. There is bilateral subarticular zone narrowing though without mass effect on the traversing L3 nerve roots. L3-L4: Small disc bulge as well as ligamentous/facet hypertrophy though without significant spinal canal or neural foraminal stenosis. There is bilateral subarticular zone narrowing which contacts the left greater the right traversing L4 nerve roots. L4-L5: Disc bulging with superimposed right subarticular disc protrusion which results in right subarticular zone stenosis and likely mass effect on the traversing right L5 nerve root. Also noted is moderate ligamentous/facet hypertrophy though without significant spinal canal or neural foraminal stenosis. L5-S1: Diffuse disc bulging with central disc protrusion as well as moderate facet hypertrophy though without significant spinal canal or neural foraminal stenosis. Lateral osteophytic ridging seen bilaterally which possibly contacts the extraforaminal segments of the bilateral exiting L5 nerve roots. IMPRESSION: Multilevel lumbar spondylosis without evidence of high-grade spinal canal or neural foraminal stenosis. Disc bulging with superimposed right subarticular disc protrusion at L4-L5 results in right subarticular zone stenosis with likely mass effect/posterior displacement on the traversing right L5 nerve root. Lateral osteophytic ridging seen bilaterally at L5-S1 which possibly contacts the extraforaminal segments of the bilateral exiting L5 nerve roots. XR LUMBOSACRAL SPINE XR HIP, RIGHT 04/07/2018 CLINICAL INFORMATION: Right hip pain. Right-sided low back pain with right-sided sciatica. FINDINGS: LUMBAR SPINE: Bones are osteopenic. There is moderate to severe degenerative disc disease at the L5-S1 level, characterized by loss of intervertebral disc height and endplate osteophytes. Moderate facet arthropathy is present at L5-S1. There is mild multilevel degenerative disc disease in the lumbar spine which is characterized by loss of intervertebral disc height and endplate osteophytes. Mild facet arthropathy is present at L4-L5. No fractures. Vertebral body heights are normal. There is mild right convex curvature centered at L4-L5 and left convexity at the thoracolumbar junction. Soft tissues are unremarkable. RIGHT HIP: Mild to moderate osteoarthritis in the right hip is characterized by cephalad joint space narrowing, acetabular osteophytes and femoral head osteophytes as well as subchondral sclerosis. No fracture or malalignment. SI joint and pubic symphysis are unremarkable. Phleboliths are present in the central pelvis. IMPRESSION: 1. Multilevel degenerative spondylosis in the lumbar spine, moderate in severity at L5-S1 and more mild in the remainder of the lumbar spine. 2. Mild to moderate osteoarthritis in the right hip. Assessment & Plan Assessment & Plan (1) Lumbar degenerative disc disease: Code(s): M51.36 - Other intervertebral disc degeneration, lumbar region Category: Medical (2) Spondylosis of lumbosacral spine with radiculopathy: Code(s): M47.27 - Other spondylosis with radiculopathy, lumbosacral region Category: Medical (3) Failed back syndrome: Code(s): M96.1 - Postlaminectomy syndrome, not elsewhere classified Category: Medical (4) Muscle spasm of back: Code(s): M62.830 - Muscle spasm of back Category: Medical (5) Bilateral hip pain: Code(s): M25.551 - Pain in right hip; M25.552 - Pain in left hip Category: Medical Plan Schedule right hip intra-articular steroid injection with local and fluoroscopy. Expectations, risks and benefits were reviewed. Patient is aware she will be contacted to schedule this procedure. Placed referral for psychology clearance in anticipation of ITDD trial with Fentanyl under sedation and fluoroscopy. Patient is aware she will stop every opioid 24 hours prior to trial and 60 days prior to implant. Extensive discussion regarding the risks and benefits of ITDD trial and implant procedures. Patient is interested to pursue formal PT for low back and hip pain for core strengthening and flexibility, improve posture and balance. Script provided. Script also provided for methocarbamol for muscle spasms. Side effects and precautions were discussed with patient. All questions were answered to patient satisfaction. Follow-up after injections and sooner as needed. Orders: Orders XR lumbar spine 4V min Today M47.27 - Other spondylosis with radiculopathy, lumbosacral region, M51.36 - Other intervertebral disc degeneration, lumbar region, M96.1 - Postlaminectomy syndrome, not elsewhere classified PT Evaluation and Treatment Today M25.551 - Pain in right hip, M25.552 - Pain in left hip, M47.27 - Other spondylosis with radiculopathy, lumbosacral region, M51.36 - Other intervertebral disc degeneration, lumbar region, M62.830 - Muscle spasm of back Medications: New methocarbamol 750 mg PO Q8H 30 days PRN 90 tabs 0RF muscle spasm M62.830 - Muscle spasm of back, M96.1 - Postlaminectomy syndrome, not elsewhere classified Coding Level of Care Code Est Pt Level 4 (66474) Diagnoses Lumbar degenerative disc disease M51.36 Spondylosis of lumbosacral spine with radiculopathy M47.27 Failed back syndrome M96.1 Muscle spasm of back M62.830 Bilateral hip pain M25.551; M25.552
[2023-12-13 15:01] VITALS: BP 113/65; PULSE 75; O2SAT 97; BMI 38.7
== END 2023-12-13 15:36 | disposition home or self-care (01) ==
PROVIDERS: PCP Internal Medicine; Referring Provider Internal Medicine; Visit Provider Nurse Practitioner Family
DX: M51.36 Other intervertebral disc degeneration, lumbar region (principal); M47.27 Other spondylosis with radiculopathy, lumbosacral region; M96.1 Postlaminectomy syndrome, not elsewhere classified; M62.830 Muscle spasm of back; M16.0 Bilateral primary osteoarthritis of hip
CPT/HCPCS: 99214

== ENCOUNTER 2023-12-13 14:56 | Outpatient (REF) | payer OTHER, SELFPAY ==
--- NOTE | ~2023-12-13 | XR_ITS ---
EXAMINATION: XR LUMBOSACRAL SPINE WITH OBLIQUES CLINICAL INFORMATION: Other intervertebral disc degeneration, lumbar region COMPARISON: Lumbar spine 04/08/2018 TECHNIQUE: AP, both oblique, and lateral views of the lumbar spine. Lateral view of the lumbosacral junction. FINDINGS: The bones are diffusely osteopenic. There is mild curve of the lumbar spine, convex left. There are 5 nonrib-bearing lumbar-type vertebral bodies. The height of the lumbar vertebral bodies is well-maintained. There is moderate disc space narrowing at L2-L3, L4-L5 and L5-S1. Anterior marginal osteophyte formation is seen throughout the lumbar spine. There is no spondylolysis or spondylolisthesis. There is multilevel degenerative facet joint disease, most pronounced at L5-S1. XR/XR lumbar spine 4V min IMPRESSION: 1. Moderate degenerative disc disease at L2-L3, L4-L5 and L5-S1. 2. Multilevel degenerative facet joint disease.
== END 2023-12-13 14:57 | disposition home or self-care (01) ==
LOC: HO.XRAY 14:56
PROVIDERS: PCP Internal Medicine; Referring Provider Internal Medicine; Visit Provider Nurse Practitioner Family
DX: M51.36 Other intervertebral disc degeneration, lumbar region (principal); M47.27 Other spondylosis with radiculopathy, lumbosacral region; M96.1 Postlaminectomy syndrome, not elsewhere classified; M54.50 Low back pain, unspecified; M62.830 Muscle spasm of back; M25.551 Pain in right hip; M25.552 Pain in left hip
CPT/HCPCS: 72110; 99212

== ENCOUNTER 2024-01-11 06:55 | Outpatient (REF) | payer OTHER, SELFPAY ==
--- NOTE | ~2024-01-11 | FL_ITS ---
EXAMINATION: XR FLUOROSCOPY WITH IMAGES CLINICAL INFORMATION: Right hip pain. COMPARISON: None available. TECHNIQUE: Fluoroscopy Supervised By: Dr. Mahoney. Fluoroscopy Time: 0.1 mins. Cumulative Dose: 12.2 mGy. DAP: 0.190 mGym2. Images: 2. FINDINGS: Intraoperative fluoroscopy and spot films were performed during a procedure in the OR. Spinal needle seen overlying the right hip. A tiny amount of contrast is seen in the hip joint. Please see Dr. Mahoney's report for complete details. FL/FL guidance in treatment room IMPRESSION: Intraoperative fluoroscopy and spot films were obtained. Please see Dr. Mahoney's report for complete details.
== END 2024-01-11 06:56 | disposition home or self-care (01) ==
LOC: CF 06:55
PROVIDERS: Visit Provider Anesthesiology
DX: M16.11 Unilateral primary osteoarthritis, right hip (principal); M25.552 Pain in left hip
CPT/HCPCS: 20610; J2795; J3301; Q9967

== ENCOUNTER 2024-01-11 13:54 | Outpatient (AMB) | payer OTHER, SELFPAY ==
--- NOTE | 2024-01-11 14:02 | MHC.OFFVIS ---
Vital Signs 01/11/24 15:09 01/11/24 15:10 Height 5 ft 6 in Weight 240 lb BMI 38.7 BP 100/60 110/64 Blood Pressure Location Lt brachial Lt brachial Position Sitting Sitting Respiration 18 18 Pulse 81 79 Pulse Source Pulse Oximeter Pulse Oximeter Pulse Oximetry (%) 94 94 Oxygen Delivery Method Room Air Room Air Comment Pre-Op Post-Op Intake Visit Reasons: right intraarticular hip inj Allergies amoxicillin [Augmentin] Allergy (Intermediate, Verified 12/13/23 15:05) rash cat dander Allergy (Intermediate, Verified 12/13/23 15:05) NASAL SYMPTOMS clavulanic acid [Augmentin] Allergy (Intermediate, Verified 12/13/23 15:05) rash trazodone [TRAZODONE] Allergy (Intermediate, Verified 12/13/23 15:05) I CAN'T BREATHE RIGHT , shortness of breath PFSH Medical History Moderate recurrent major depression Neck pain BMI 34.0-34.9,adult Leukopenia Sleep apnea Umbilical hernia Liver cyst Obesity (BMI 30-39.9) History of small bowel obstruction Lumbar degenerative disc disease Hematuria Migraines IBS (irritable bowel syndrome) Anemia Arthritis Depression Hypothyroid GERD (gastroesophageal reflux disease) Surgical History History of surgical removal of skin lesion History of ankle surgery History of surgery History of hand surgery Hx of foot surgery History of esophagogastroduodenoscopy (EGD) History of surgery H/O hernia repair History of endometrial ablation H/O tubal ligation H/O knee surgery History of delivery History of bladder surgery Hx of colonoscopy (~02/11/23) History of back surgery H/O: hysterectomy History of bilateral knee replacement Family History Father FH: prostate cancer Mother Breast cancer Bladder cancer Social History Household Members: None Housing: House 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) Alcohol intake: never Comment: medicated, see MAR Patient Tobacco Use Status: Former Tobacco user Tobacco use type: Cigarette Years Smoked: 25 e-Cigarette/Vaping Use: Never Used Second Hand Smoke Exposure: No service: No Current occupational status: unemployed and disabled Cognitive needs: No Hearing needs: No Vision needs: No Physical Exam Vital Signs: Last Vital Signs Pulse 79 01/11/24 15:10 Resp 18 01/11/24 15:10 BP 110/64 01/11/24 15:10 Pulse Ox 94 01/11/24 15:10 Oxygen Delivery Method Room Air 01/11/24 15:10 BMI result Body Mass Index 38.7 Assessment & Plan Assessment & Plan (1) Bilateral hip pain: Code(s): M25.551 - Pain in right hip; M25.552 - Pain in left hip Category: Medical (2) Osteoarthritis of right hip: Code(s): M16.11 - Unilateral primary osteoarthritis, right hip Plan: Right intra-articular hip steroid injection. Informed consent was explained to the patient. All questions were explained and answered. The patient was taken inside of the operating room where she was positioned left lateral decubitus on operating table.. Time-out was performed delineating patient's name and date of , correct site, side, the nature of the procedure, patient's allergy, preoperative antibiotic if needed, need for VT prophylaxis.. All operating room staff was participating in OR time-out procedure. Right hip area of the patient was prepped with ChloraPrep and draped with sterile towels. C-arm was brought over the operating field and picture of left and right lateral views of the bilateral hip joints were delineated on the screen. The smaller joint silhouette was chosen as the target. Projection of the right trochanter to the skin was chosen as the initial needle insertion point. After that the skin and subcutaneous tissues was anesthetized with 2% lidocaine 2.5 mL. 22 gauge 5 in long needle was inserted through the skin and started to advance to the joint space under intermittent lateral and anterior posterior views. When needle entered the capsule of the joint small amount of the contrast was injected delineating intra-articular space. After that treatment solution containing 5 cc of ropivacaine 0.5% and 40 mg of Kenalog was injected into the joint. The needle was withdrawn sterile dressing was applied.The patient tolerated procedure well Plan Schedule right hip intra-articular steroid injection with local and fluoroscopy. Expectations, risks and benefits were reviewed. Patient is aware she will be contacted to schedule this procedure. Placed referral for psychology clearance in anticipation of ITDD trial with Fentanyl under sedation and fluoroscopy. Patient is aware she will stop every opioid 24 hours prior to trial and 60 days prior to implant. Extensive discussion regarding the risks and benefits of ITDD trial and implant procedures. Patient is interested to pursue formal PT for low back and hip pain for core strengthening and flexibility, improve posture and balance. Script provided. Script also provided for methocarbamol for muscle spasms. Side effects and precautions were discussed with patient. All questions were answered to patient satisfaction. Follow-up after injections and sooner as needed. Orders: Orders FL guidance in treatment room Today M25.551 - Pain in right hip, M25.552 - Pain in left hip Coding Level of Care Code Procedure Only Diagnoses Bilateral hip pain M25.551; M25.552 Osteoarthritis of right hip M16.11
[2024-01-11 15:09] VITALS: BP 100/60; PULSE 81; RESP 18; O2SAT 94; BMI 38.7
[2024-01-11 15:10] VITALS: BP 110/64; PULSE 79; RESP 18; O2SAT 94
--- OUTSIDE RECORDS SUMMARY | 2024-01-14 09:58 | XMS_ITS | Continuity of Care Document ---
Author Organization [facility] ter Address [address] [place] [address]- Care Team Providers Care Piano Stringer Name Role Phone Trevor Grant MD, Brianda Sewell Primary Care Physician [place] [facility] [place] - 09/12/[address] [address]- Discharge Disposition: A-D/C Home Attending Physician: Danuta Sarmiento MD Admitting Physician: Danuta Sarmiento MD Referring Physician: Danuta Sarmiento MD Allergies, Adverse Reactions, Alerts Substance Reaction Severity Status penicillins rash Active traZODone resp distress Active Immunizations Given and Recorded Vaccine Date Status Refusal Reason pneumococcal 23-valent vaccine 1 08/28/15 Given 1Early/Late Reason: New Med Order Medications Acetaminophen = 500 mg, By Mouth, 3 times a day, 0 Refills, Maintenance, 08/14/15 15:08:34 Start Date: 08/14/15 Status: Ordered acetaminophen 325 mg oral capsule 2 capsule = 650 mg, By Mouth, Every 4 hours, PRN Pain , Moderate, # 90 capsule, 0 Refills, Maintenance, 09/12/21 9:10:00 EST, Capsule, [facility] #[id number], Partial fill upon patient request if the prescription is for a schedule II opioid drug.... Start Date: 09/12/21 Status: Ordered Calcium And Vitamin D Combination 1 tab, By Mouth, Daily, 0 Refills, Maintenance, 09/03/21 11:33:00 EST, Partial fill upon patient request if the prescription is for a schedule II opioid drug. Start Date: 09/03/21 Status: Ordered clonazepam 0.5 mg oral tablet 1 tablet = 0.5 mg, By Mouth, 2 times a day, PRN Anxiety, 0 Refills, Maintenance, 10/29/11 4:44:17 Start Date: 10/29/11 Status: Ordered docusate sodium 100 mg oral capsule 100 mg, 1, capsule, By Mouth, 2 times a day, Refills 0, Maintenance, 10/22/17 9:07:27 Start Date: 10/22/17 Status: Ordered Fish Oil 1 tab, By Mouth, Daily, 0 Refills, Maintenance, 09/03/21 11:04:00 EST, Partial fill upon patient request if the prescription is for a schedule II opioid drug. Start Date: 09/03/21 Status: Ordered FLUoxetine 20 mg oral capsule 20 mg, 1, capsule, By Mouth, Daily, # 60 capsule, Refills 0, Maintenance, 09/30/17 15:29:00 Start Date: 09/30/17 Status: Ordered Glucosamine 1 tab, By Mouth, Daily, 0 Refills, Maintenance, 09/03/21 11:32:00 EST, Partial fill upon patient request if the prescription is for a schedule II opioid drug. Start Date: 09/03/21 Status: Ordered ibuprofen 800 mg oral tablet 800 mg, 1, tablet, By Mouth, Every 8 hours, # 90 tablet, Refills 0, Tot. Refills 0, Maintenance, 09/12/21 9:10:00 EST, [id number], Partial fill uponpatient request if the prescription is for a schedu... Start Date: 09/12/21 Status: Ordered levothyroxine 0.2 mg oral tablet 1 tablet = 200 mcg, By Mouth, Daily, # 30 tablet, 0 Refills, Maintenance, 09/30/17 15:28:04, Tablet Start Date: 09/30/17 Status: Ordered loratadine 10 mg oral capsule 1 capsule = 10 mg, By Mouth, Daily, # 10 capsule, 0 Refills, Maintenance, Capsule Start Date: 10/29/11 Status: Ordered Maalox Plus Liquid 30 mL, By Mouth, Every 4 hours, PRN Nausea & Vomiting, 0 Refills, Maintenance, 10/22/17 9:07:22, Suspension Start Date: 10/22/17 Status: Ordered Melatonin 5 mg oral capsule 1 capsule = 5 mg, By Mouth, Daily at bedtime, 0 Refills, Maintenance, 09/30/17 15:21:08 Start Date: 09/30/17 Status: Ordered Milk of Magnesia Liquid 30 mL, By Mouth, Daily, PRN Constipation, 0 Refills, Maintenance, 10/22/17 9:07:29, Suspension Start Date: 10/22/17 Status: Ordered MiraLax Powder 1 pack/packet = 17 Gm, By Mouth, Daily, PRN Constipation, 0 Refills, Maintenance, 10/22/17 9:07:35 EDT, Powder Start Date: 10/22/17 Status: Ordered Neurontin 800 mg oral tablet 1 tablet = 800 mg, By Mouth, 3 times a day, # 270 tablet, 0 Refills, Maintenance, Tablet Start Date: 10/29/11 Status: Ordered Omeprazole 80 mg, By Mouth, Daily at bedtime, Maintenance, 10/22/17 9:07:36, Omeprazole Start Date: 10/22/17 Status: Ordered oxyCODONE 5 mg oral tablet 5 mg, 1, tablet, By Mouth, Every 6 hours, PRN, # 3 tablet, Refills 0, Tot. Refills 0, Maintenance, as needed for pain, 09/12/21 9:11:00 EST, Route to Pharmacy Electronically, [facility] #[id number], Partial fill upon patient request if the prescr... Start Date: 09/12/21 Status: Ordered pantoprazole 40 mg oral delayed release tablet = 40 mg, By Mouth, 2 times a day, 0 Refills, Maintenance, 10/22/17 9:07:33, EC Tablet Start Date: 10/22/17 Status: Ordered Tramadol By Mouth, 0 Refills, Maintenance, 09/12/21 6:09:00 EST, Partial fill upon patient request if the prescription is for a schedule II opioid drug. 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 Vital Signs Most recent to oldest [Reference Range]: 1 2 3 Height 170.18 cm (09/12/21:14 AM) 170.18 cm (09/03/21 11:27 AM) Weight 100 kg (09/12/21:14 AM) 102.27 kg (09/03/21 11:27 AM) Oxygen Saturation [94-100 %] 97 % (09/12/21 9:30 AM) 96 % (09/12/21 9:15 AM) 100 % (09/12/21 9:00 AM) Pulse Rate [55-90 bpm] 71 bpm (09/12/21 6:14 AM) Body Mass Index [18.5-24.99] 34.53 *>HHI* (09/12/21:14 AM) 35.31 *>HHI* (09/03/21 11:27 AM) Blood Pressure [90-138/55-84 mm Hg] 131/79mm Hg (09/12/21 9:30 AM) 129/69mm Hg (09/12/21 9:15 AM) 134/80mm Hg (09/12/21 9:00 AM) Respiratory Rate [16-30 br/min] 22 br/min (09/12/21 9:30 AM) 13 br/min *L* (09/12/21 9:15 AM) 14 br/min *L* (09/12/21 9:00 AM) Temperature [96.8-100.4 DegF] 99.0 DegF (09/12/21 9:30 AM) 98.8 DegF (09/12/21 8:45 AM) 97.8 DegF (09/12/21:14 AM) Liters per Minute 6 L/min (09/12/21 8:45 AM) Mode of Delivery (Oxygen) Room air (09/12/21 9:15 AM) Room air (09/12/21 9:00 AM) Simple face mask (09/12/21 8:45 AM) Blood pressure sites Arm, left (09/12/21 9:30 AM) Arm, left (09/12/21 9:15 AM) Arm, left (09/12/21 9:00 AM) Temperature Route Temporal (09/12/21 9:30 AM) Temporal (09/12/21 8:45 AM) Temporal (09/12/21 6:14 AM) Dry Weight 100 kg (09/12/21 6:14 AM) 102.27 kg (09/03/21 11:27 AM) Weight Obtained Via Standing scale (09/12/21 6:14 AM) Dry Weight Obtained Via Standing scale (09/12/21 6:14 AM) Patient/family stated (09/03/21 11:27 AM) Social History Social History Type Response Smoking Status Former smoker, quit more than 30 days ago entered on: 08/29/21 Sex
--- OUTSIDE RECORDS SUMMARY | 2024-01-14 09:58 | XMS_ITS | Continuity of Care Document ---
Author Organization [facility] FILLING MACHINE TENDER Oncolog y Address [address] [place] [address]- Care Team Providers Care Hand Silvering Supervisor Name Role Phone Trevor Grant MD, Brianda Sewell Primary Care Physician [place] [facility] [place] - 09/05/21 [facility] FILLING MACHINE TENDER Oncology [address] [place] [id number] Allergies, Adverse Reactions, Alerts Substance Reaction Severity Status penicillins rash Active traZODone resp distress Active Immunizations Given and Recorded Vaccine Date Status Refusal Reason pneumococcal 23-valent vaccine 1 08/28/15 Given 1Early/Late Reason: New Med Order Medications Acetaminophen = 500 mg, By Mouth, 3 times a day, 0 Refills, Maintenance, 08/14/15 15:08:34 Start Date: 08/14/15 Status: Ordered Calcium And Vitamin D Combination [...] opioid drug. Start Date: 09/03/21 Status: Ordered levothyroxine 0.2 mg oral tablet [...] 9:07:36, Omeprazole Start Date: 10/22/17 Status: Ordered pantoprazole 40 mg oral delayed release tablet = 40 mg, By Mouth, 2 times a day, 0 Refills, Maintenance, 10/22/17 9:07:33, EC Tablet Start Date: 10/22/17 Status: Ordered valacyclovir 1 gm oral tablet 1 tablet = 1 Gm, By Mouth, Daily at bedtime, 0 Refills, Maintenance Start Date: 10/29/11 Status: Ordered Problem List Condition Effective Dates Status Health Status Inform ant Depressive disorder(Confirmed) Active Fibromyositis(Confirmed) Active Herpes simplex type 2 infection(Confirmed) Active Obese class II(Confirmed) Active Knee pain(Confirmed) Active Health snf, active car e coordination(Confirmed) Active 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
--- OUTSIDE RECORDS SUMMARY | 2024-01-14 09:58 | XMS_ITS | Continuity of Care Document ---
Author Organization [facility] DOCTOR PODIATRIC MEDICINE Oncolog y Address [address] [place] [address]- Care Team Providers Care Lock And Dam Repairer Name Role Phone Trevor Grant MD, Brianda Sewell Primary Care Physician En[place] [facility] [place]s): 09/02/21 - 10/26/21 [facility] DOCTOR PODIATRIC MEDICINE Oncology [address] [place] [address]- Attending Physician: Danuta Sarmiento MD Admitting Physician: Danuta Sarmiento MD Allergies, Adverse Reactions, Alerts Substance Reaction Severity Status penicillins rash Active Dilaudid rash Active traZODone resp distress Active Immunizations Given and Recorded Vaccine Date Status Refusal Reason pneumococcal 23-valent vaccine 1 08/28/15 Given 1Early/Late Reason: New Med Order Medications acetaminophen 325 mg oral capsule 2 capsule = 650 mg, By Mouth, Every 4 hours, PRN Pain , Moderate, # 90 capsule, 0 Refills, Maintenance, 09/12/21 9:10:00 EST, Capsule, [facility] #[id number], Partial fill upon patient request if the [...] 09/12/21 9:10:00 EST, Route to Pharmacy Electronically, [facility] #[id number], Partial fill uponpatient request if the prescription [...] Maintenance, Capsule Start Date: 10/29/11 Status: Ordered Melatonin 5 mg oral capsule 1 capsule = 5 mg, By Mouth, Daily at bedtime, 0 Refills, Maintenance, 09/30/17 15:21:08 Start Date: 09/30/17 Status: Ordered MiraLax Powder 1 pack/packet = [...] 9:07:36, Omeprazole Start Date: 10/22/17 Status: Ordered Tramadol By [...] class I(Confirmed) Active Knee pain(Confirmed) Active Health usp, active car e coordination(Confirmed) Active 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
--- OUTSIDE RECORDS SUMMARY | 2024-01-14 09:58 | XMS_ITS | Continuity of Care Document ---
Author Organization [facility]LEVATOR OPERATOR SERVICE Oncolog y Address [address] [place] [address]- Care Team Providers Care Fabric Finisher Name Role Phone Trevor Grant MD, Nena Primary Care Physician [place] [facility] [place]21 [facility] ELEVATOR OPERATOR SERVICE Oncology [address] [place] [address] Allergies, Adverse Reactions, [...] 0 Refills, Maintenance, 09/12/21 9:10:00 EST, Capsule, [facility] #[id number], Partial fill upon patient request if the [...] 09/12/21 9:10:00 EST, [id number], Partial fill uponpatient request if the prescription [...] class I(Confirmed) Active Knee pain(Confirmed) Active Health fci, active car e coordination(Confirmed) Active 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
== END 2024-01-11 15:10 | disposition home or self-care (01) ==
LOC: HO.PMCPRC 13:54
PROVIDERS: PCP Internal Medicine; Visit Provider Anesthesiology
DX: M25.551 Pain in right hip (principal); M16.11 Unilateral primary osteoarthritis, right hip
CPT/HCPCS: 20610; 77002

== ENCOUNTER 2024-02-08 14:57 | Outpatient (AMB) | payer OTHER, SELFPAY ==
--- NOTE | 2024-02-08 14:58 | MHC.OFFVIS ---
Vital Signs 02/08/24 15:03 Height 5 ft 6 in Weight 238 lb BMI 38.4 BP 126/67 Blood Pressure Location Rt brachial Position Sitting Pulse 73 Pulse Source Pulse Oximeter Pulse Oximetry (%) 98 Oxygen Delivery Method Room Air Intake Visit Reasons: s/p right hip inj Intake Note: Pain today 02/15 Hand Coke Drawer Required: No Accompanied by: Self / Same As Patient Allergies amoxicillin [Augmentin] Allergy (Intermediate, Verified 02/08/24 15:05) rash cat dander Allergy (Intermediate, Verified 02/08/24 15:05) NASAL SYMPTOMS clavulanic acid [Augmentin] Allergy (Intermediate, Verified 02/08/24 15:05) rash trazodone [TRAZODONE] Allergy (Intermediate, Verified 02/08/24 15:05) I CAN'T BREATHE RIGHT , shortness of breath HPI Comments Details: Patient presents today to assess response to Right intra-articular hip steroid injection on 01/11/[address] Mahoney. Patient reports ongoing 70% right hip pain relief since procedure with partial improvement in her daily activities and functioning and sleep. Patient reports her right sided sciatica pain has been flared up in her mobility and movement such as bending or walking has been limited due to pain. Denies any inciting events. Back pain is localized to her lower spine with radiation into her right buttock and posterolateral right leg with intermittent numbness and tingling. Reports RLE weakness with walking. Denies any right hip or groin pain with internal or external hip rotation. Patient presents with positive SLR testing on the right side today worsens his dorsiflexion. Her previous lumbar spine MRI was in 2018, we will proceed with updating her MRI prior to any further interventional treatments. Patient has passed her behavioral evaluation and received approval for ITDD trial with Fentanyl. She also has left hip pain due to OA, but states left hip pain is not as troublesome as right sciatica pain. She continues to take tramadol, Tylenol, gabapentin, meloxicam with continued low back pain with right sided radicular symptoms. Denies any fever, bladder or bowel dysfunction or saddle anesthesia. Past Procedures: 01/11/24: Right intra-articular hip steroid injection-ongoing 70% pain relief PRIOR: Patient presents today for follow up for chronic low back and bilateral hip pain. She was last seen in our office by Dr. Mahoney in October 2021 with plans to undergo Fentanyl ITDD trial under sedation but opted out. Patient also had Dilaudid trial which results in bad side effects of itching for 24 hours and Medtronic SCS trial which provided her only 50% pain relief. Prialt, clonidine and bupivacaine trials were also previously discussed. Patient reports her back pain has been progressively increasing and she is no longer able to manage it on tramadol and low dose Butrans patch. She is interested to return to neuromodulation with ITDD trial and potentially implant. Back pain is localized mainly to the right side and also extends across her lower back and sacral area on the right. She also has significant groin and hip pain, worse on the right with walking and weight bearing, prolonged standing or changing positions. Pain is described as constant stabbing, sharp, punching, cramping, hurting, aching, heavy, spreading and radiating. Patient reports fragmented sleep due to constant awakening during the night due to pain. She has been alternating ice and heat packs, gabapentin and meloxicam with continued symptoms. Patient reports mechanical fall this morning and has landed on her right side of the back. There is a notable linear abrasion on her right lower paraspinal side without swelling or bruising. Most recent CT scan abdomen and pelvis showed advanced degenerative osteoarthritis of the bilateral hips. PRIOR 10/15/21 Dr. Mahoney: Violetta is 60 years old female who is in the phone today with a history of longstanding back pain. Her pain is across her entire low back and radiates down right leg with associated numbness of entire foot. She notes weakness of bilateral legs occasionally. She denies any bowel/bladder dysfunction or saddle anesthesia. She is s/p a right L4-5 [place] [address] Hudson with no improvements in her pain. She was previously under the care of [facility] who noted they exhausted all efforts to alleviate her pain with no improvements. She is currently at the max dose of Tramadol and has been on this medication for years. She reports minimal alleviation in her pain at this point, despite maximum dose. She attended physical therapy a few months ago with no noticeable change in her pain. She also had chiropractic manipulation but notes no improvement in pain. She denies massage or acupuncture. She last had a lumbar spine MRI in 2019, dictated below. She went for trial of spinal cord stimulator [employer] with me ring and she did not like the results of the stimulation although the anatomical location of stimulation was appropriate. In the past we discussed I DDD to treat her pain. We decided to perform trial of Dilaudid she received 80 micro g for the trial. She reported only 50% pain improvement. She reported severe itching for 24 hours after the injection. Therefore Dilaudid is not her medication. We discussed trial with fentanyl. She agreed to go for trial. I also mentioned nonopioid medications as a trial possibilities. We could try clonidine and bupivacaine is a trial. I also explain her Prialt trial and she will be calling [facility] and find out whether the medication is prohibitive for her in terms of the cost. Meanwhile schedule her for fentanyl trial. [facility] Medical History Moderate recurrent major depression Neck pain BMI 34.0-34.9,adult Leukopenia Sleep apnea Umbilical hernia Liver cyst Obesity (BMI 30-39.9) History of small bowel obstruction Lumbar degenerative disc disease Hematuria Migraines IBS (irritable bowel syndrome) Anemia Arthritis Depression Hypothyroid GERD (gastroesophageal reflux disease) Surgical History History of surgical removal of skin lesion History of ankle surgery History of surgery History of hand surgery Hx of foot surgery History of esophagogastroduodenoscopy (EGD) History of surgery H/O hernia repair History of endometrial ablation H/O tubal ligation H/O knee surgery History of delivery History of bladder surgery Hx of colonoscopy (~02/11/23) History of back surgery H/O: hysterectomy History of bilateral knee replacement Family History Father FH: prostate cancer Mother Breast cancer Bladder cancer Social History Household Members: None Housing: House 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) Alcohol intake: never Comment: medicated, see MAR Patient Tobacco Use Status: Former Tobacco user Tobacco use type: Cigarette Years Smoked: 25 e-Cigarette/Vaping Use: Never Used Second Hand Smoke Exposure: No service: No Current occupational status: unemployed and disabled Cognitive needs: No Hearing needs: No Vision needs: No Review of Systems Const All systems reviewed & are unremarkable except as noted in HPI and below Physical Exam Vital Signs: Last Vital Signs Pulse 73 02/08/24 15:03 BP 126/67 02/08/24 15:03 Pulse Ox 98 02/08/24 15:03 Oxygen Delivery Method Room Air 02/08/24 15:03 BMI result Body Mass Index 38.4 General: Appears afebrile. Alert and oriented. Mood and affect appropriate. Follows and participates in conversation appropriately. Respiratory effort is unlabored. No cough. Able to transition from sit to stand unassisted. Uses cane with ambulation. General: Yes no CVA tenderness Back/Spine/Pelvis Other: Limited lumbar ROM due to pain. Uses cane. She is unable to walk on her toes due to fusion of toes on left and left ankle surgery resulting in limited ROM. Can flex forward to 60-70 degrees and extend to 5-10 degrees before experiencing lumbar pain. Demonstrates 5/5 left and 4/5 right strength of quadriceps bilaterally as well as flexion/dorsiflexion of bilateral feet against resistance. 2+ pedal pulses bilaterally. Mild groin pain with I/E hip rotations, on the left. Straight leg rise with dorsiflexion positive on the right. Diminished DTRs bilaterally. Unable to perform Zaheer test bilaterally d/t stiffness and pain. Back: no CVA tenderness Cervical Spine: cervical ROM normal, cervical muscular tenderness and No Cervical spine tenderness Thoracic/Lumbar Spine: thoracic and lumbar spine normal to inspection, Thoracic/lumbar spine scar(s), Lasegue's sign positive on the right and localized, pain with thoraco-lumbar ROM, paraspinal muscle tenderness, thoraco-lumbar ROM limited, No thoracic spinal tenderness and lumbar spinal tenderness (L4-S1) Pelvis: buttock tenderness on the right and sciatic notch tenderness on the right Sacroiliac joints: bilaterally tender to palpation Extrem General: Yes capillary refill normal, Yes no clubbing, cyanosis or edema and Yes no calf tenderness Results Reviewed Results Reviewed: CT ABDOMEN AND PELVIS WITHOUT CONTRAST 01/28/23 OSSEOUS STRUCTURES: Advanced degenerative osteoarthritis of the bilateral hips with numerous very prominent subchondral cysts. IMPRESSION: Advanced degenerative osteoarthritis of the bilateral hips. MR LUMBAR SPINE WITHOUT CONTRAST 07/19/2018 CLINICAL INFORMATION: Right-sided lower back pain. Right-sided sciatica. COMPARISON: Lumbar spine radiographs dated 04/07/2018 FINDINGS: Review of the prior radiograph demonstrates hypoplastic 12th ribs. For the purposes of this dictation, the L5-S1 level is the last full intervertebral disc. VERTEBRAL BODIES AND PARASPINAL STRUCTURES: Lumbar vertebral bodies are within normal limits for height and sagittal alignment. No suspicious marrow replacing lesions are identified. Multilevel disc degeneration is seen with moderate to severe loss of intervertebral disc height and associated degenerative endplate changes at L5-S1. Degenerative endplate changes are seen as well as multilevel Schmorl's node formation is seen elsewhere in the lumbar spine. There is likely mild loss of intervertebral disc height at L1-L2, L2-L3 and L4-L5. There is atrophy of the lower paraspinal musculature. CONUS MEDULLARIS AND CAUDA EQUINA: Normal, terminating at the level of T12-L1. SPINAL LEVELS: T12-L1: No significant spinal canal or neural foraminal stenosis. L1-L2: Small disc bulge as well as ligamentous/facet hypertrophy though without significant spinal canal or neural foraminal stenosis. There is bilateral subarticular zone narrowing which approximates the traversing L2 nerve roots though without mass effect. L2-L3: Small disc bulge as well as ligamentous/facet hypertrophy though without significant spinal canal or left neural foraminal stenosis . There is minimal right neural foraminal stenosis without mass effect on the exiting nerve root. There is bilateral subarticular zone narrowing though without mass effect on the traversing L3 nerve roots. L3-L4: Small disc bulge as well as ligamentous/facet hypertrophy though without significant spinal canal or neural foraminal stenosis. There is bilateral subarticular zone narrowing which contacts the left greater the right traversing L4 nerve roots. L4-L5: Disc bulging with superimposed right subarticular disc protrusion which results in right subarticular zone stenosis and likely mass effect on the traversing right L5 nerve root. Also noted is moderate ligamentous/facet hypertrophy though without significant spinal canal or neural foraminal stenosis. L5-S1: Diffuse disc bulging with central disc protrusion as well as moderate facet hypertrophy though without significant spinal canal or neural foraminal stenosis. Lateral osteophytic ridging seen bilaterally which possibly contacts the extraforaminal segments of the bilateral exiting L5 nerve roots. IMPRESSION: Multilevel lumbar spondylosis without evidence of high-grade spinal canal or neural foraminal stenosis. Disc bulging with superimposed right subarticular disc protrusion at L4-L5 results in right subarticular zone stenosis with likely mass effect/posterior displacement on the traversing right L5 nerve root. Lateral osteophytic ridging seen bilaterally at L5-S1 which possibly contacts the extraforaminal segments of the bilateral exiting L5 nerve roots. XR LUMBOSACRAL SPINE XR HIP, RIGHT 04/07/2018 CLINICAL INFORMATION: Right hip pain. Right-sided low back pain with right-sided sciatica. FINDINGS: LUMBAR SPINE: Bones are osteopenic. There is moderate to severe degenerative disc disease at the L5-S1 level, characterized by loss of intervertebral disc height and endplate osteophytes. Moderate facet arthropathy is present at L5-S1. There is mild multilevel degenerative disc disease in the lumbar spine which is characterized by loss of intervertebral disc height and endplate osteophytes. Mild facet arthropathy is present at L4-L5. No fractures. Vertebral body heights are normal. There is mild right convex curvature centered at L4-L5 and left convexity at the thoracolumbar junction. Soft tissues are unremarkable. RIGHT HIP: Mild to moderate osteoarthritis in the right hip is characterized by cephalad joint space narrowing, acetabular osteophytes and femoral head osteophytes as well as subchondral sclerosis. No fracture or malalignment. SI joint and pubic symphysis are unremarkable. Phleboliths are present in the central pelvis. IMPRESSION: 1. Multilevel degenerative spondylosis in the lumbar spine, moderate in severity at L5-S1 and more mild in the remainder of the lumbar spine. 2. Mild to moderate osteoarthritis in the right hip. Assessment & Plan Assessment & Plan (1) Lumbar degenerative disc disease: Code(s): M51.36 - Other intervertebral disc degeneration, lumbar region Category: Medical (2) Spondylosis of lumbosacral spine with radiculopathy: Code(s): M47.27 - Other spondylosis with radiculopathy, lumbosacral region Category: Medical (3) Failed back syndrome: Code(s): M96.1 - Postlaminectomy syndrome, not elsewhere classified Category: Medical (4) Bilateral hip pain: Code(s): M25.551 - Pain in right hip; M25.552 - Pain in left hip Category: Medical (5) Muscle spasm of back: Code(s): M62.830 - Muscle spasm of back Category: Medical (6) Bilateral primary osteoarthritis of hip: Code(s): M16.0 - Bilateral primary osteoarthritis of hip Category: Medical Plan Patient is status post right hip intra-articular steroid injection with ongoing 70% pain relief with significant improvement in right hip pain and partial improvement in ADLs and mobility. For acute flare up right sided radicular with spinal stenosis related symptoms, will proceed with updating lumbar spine MRI to assess for neural integrity and compression and follow up on previous lumbar MRI findings. We will hold off on any further treatments at this time until MRI is complete. All questions and concerns have been answered and patient agreed with the treatment plan. Patient will return to the clinic to discuss results of the MRI findings when it is done and consider interventional therapy as indicated.? Orders: Orders MR lumbar spine wo con Today M47.27 - Other spondylosis with radiculopathy, lumbosacral region, M51.36 - Other intervertebral disc degeneration, lumbar region, M96.1 - Postlaminectomy syndrome, not elsewhere classified Coding Level of Care Code Est Pt Level 4 (11310) Diagnoses Lumbar degenerative disc disease M51.36 Spondylosis of lumbosacral spine with radiculopathy M47.27 Failed back syndrome M96.1 Bilateral hip pain M25.551; M25.552 Muscle spasm of back M62.830 Bilateral primary osteoarthritis of hip M16.0
[2024-02-08 15:03] VITALS: BP 126/67; PULSE 73; O2SAT 98; BMI 38.4
== END 2024-02-08 15:52 | disposition home or self-care (01) ==
PROVIDERS: PCP Internal Medicine; Visit Provider Nurse Practitioner Family
DX: M25.551 Pain in right hip (principal); M25.552 Pain in left hip; M62.830 Muscle spasm of back; M16.0 Bilateral primary osteoarthritis of hip
CPT/HCPCS: 99213

== ENCOUNTER → 2024-02-08 14:57 | Outpatient (BNVA) | payer OTHER, SELFPAY | PROVIDERS: PCP Internal Medicine; Visit Provider Nurse Practitioner Family | DX: M16.0 Bilateral primary osteoarthritis of hip (principal); M25.552 Pain in left hip; M25.551 Pain in right hip; M62.830 Muscle spasm of back; M51.36 Other intervertebral disc degeneration, lumbar region; M47.27 Other spondylosis with radiculopathy, lumbosacral region; M96.1 Postlaminectomy syndrome, not elsewhere classified | CPT/HCPCS: 99212 ==

== ENCOUNTER 2024-03-07 07:03 | Outpatient (REF) | payer OTHER, SELFPAY ==
--- NOTE | ~2024-03-07 | FL_ITS ---
EXAMINATION: XR FLUOROSCOPY WITH IMAGES CLINICAL INFORMATION: Bilateral primary osteoarthritis of hip. COMPARISON: 01/11/2024. TECHNIQUE: Fluoroscopy provided to: Dr. Mahoney Fluoroscopy time: 0.2 minutes DAP: 0.129 mGycm2 Images: 4 FINDINGS: Sequential images of left hip with intra-articular needle placement and contrast injection. FL/FL guidance in treatment room IMPRESSION: Fluoroscopic guidance. Please refer to the full operative report for details. Electronically signed by: Neftali Sosa MD 05/03/2024 05:07 PM EDT
== END 2024-03-07 07:04 | disposition home or self-care (01) ==
LOC: CF 07:03
PROVIDERS: PCP Internal Medicine; Visit Provider Anesthesiology
DX: M16.0 Bilateral primary osteoarthritis of hip (principal); M51.36 Other intervertebral disc degeneration, lumbar region; M47.27 Other spondylosis with radiculopathy, lumbosacral region; M96.1 Postlaminectomy syndrome, not elsewhere classified; M62.830 Muscle spasm of back
CPT/HCPCS: 20610; 99212; J2795; J3301; Q9967

== ENCOUNTER 2024-03-07 08:13 | Outpatient (AMB) | payer OTHER, SELFPAY ==
[2024-03-07 08:20] VITALS: BP 105/53; PULSE 76; O2SAT 95
--- NOTE | 2024-03-07 08:20 | A.OFFVIS_ITS ---
Vital Signs 03/07/24 08:20 03/07/24 09:03 BP 105/53 L 107/54 L Blood Pressure Location Rt brachial Rt brachial Position Sitting Sitting Respiration 17 Pulse 76 72 Pulse Source Pulse Oximeter Pulse Oximeter Pulse Oximetry (%) 95 96 Oxygen Delivery Method Room Air Room Air Comment Pre-op Post-op Intake Visit Reasons: (R) hip intra-articular ster inject. local & fluo Allergies amoxicillin [Augmentin] Allergy (Intermediate, Verified 02/08/24 15:05) rash cat dander Allergy (Intermediate, Verified 02/08/24 15:05) NASAL SYMPTOMS clavulanic acid [Augmentin] Allergy (Intermediate, Verified 02/08/24 15:05) rash trazodone [TRAZODONE] Allergy (Intermediate, Verified 02/08/24 15:05) I CAN'T BREATHE RIGHT , shortness of breath PFSH Medical History Moderate recurrent major depression Neck pain BMI 34.0-34.9,adult Leukopenia Sleep apnea Umbilical hernia Liver cyst Obesity (BMI 30-39.9) History of small bowel obstruction Lumbar degenerative disc disease Hematuria Migraines IBS (irritable bowel syndrome) Anemia Arthritis Depression Hypothyroid GERD (gastroesophageal reflux disease) Surgical History History of surgical removal of skin lesion History of ankle surgery History of surgery History of hand surgery Hx of foot surgery History of esophagogastroduodenoscopy (EGD) History of surgery H/O hernia repair History of endometrial ablation H/O tubal ligation H/O knee surgery History of delivery History of bladder surgery Hx of colonoscopy (~02/11/23) History of back surgery H/O: hysterectomy History of bilateral knee replacement Family History Father FH: prostate cancer Mother Breast cancer Bladder cancer Social History Household Members: None Housing: House 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) Alcohol intake: never Comment: medicated, see MAR Patient Tobacco Use Status: Former Tobacco user Tobacco use type: Cigarette Years Smoked: 25 e-Cigarette/Vaping Use: Never Used Second Hand Smoke Exposure: No service: No Current occupational status: unemployed and disabled Cognitive needs: No Hearing needs: No Vision needs: No Physical Exam Vital Signs: Last Vital Signs Pulse 72 03/07/24 09:03 Resp 17 03/07/24 09:03 BP 107/54 L 03/07/24 09:03 Pulse Ox 96 03/07/24 09:03 Oxygen Delivery Method Room Air 03/07/24 09:03 Assessment & Plan Assessment & Plan (1) Lumbar degenerative disc disease: Code(s): M51.36 - Other intervertebral disc degeneration, lumbar region Category: Medical (2) Spondylosis of lumbosacral spine with radiculopathy: Code(s): M47.27 - Other spondylosis with radiculopathy, lumbosacral region Category: Medical (3) Failed back syndrome: Code(s): M96.1 - Postlaminectomy syndrome, not elsewhere classified Category: Medical (4) Bilateral hip pain: Code(s): M25.551 - Pain in right hip; M25.552 - Pain in left hip Category: Medical (5) Muscle spasm of back: Code(s): M62.830 - Muscle spasm of back Category: Medical (6) Bilateral primary osteoarthritis of hip: Code(s): M16.0 - Bilateral primary osteoarthritis of hip Category: Medical Plan: left hip steroid injection. Informed consent was explained to the patient. All questions were explained and answered. The patient was taken inside of the operating room where she was positioned right lateral decubitus on operating table.. Time-out was performed delineating patient's name and date of , correct site, side, the nature of the procedure, patient's allergy, preoperative antibiotic if needed, need for VT prophylaxis.. All operating room staff was participating in OR time-out procedure. Left hip area of the patient was prepped with ChloraPrep and draped with sterile towels. C-arm was brought over the operating field and picture of left and right lateral views of the bilateral hip joints were delineated on the screen. The smaller joint silhouette was chosen as the target. Projection of the left trochanter to the skin was chosen as the initial needle insertion point. After that the skin and subcutaneous tissues was anesthetized with 2% lidocaine 2.5 mL. 22 gauge 5 in long needle was inserted through the skin and started to advance to the joint space under intermittent lateral and anterior posterior views. When needle entered the capsule of the joint small amount of the contrast was injected delineating intra-articular space. After that treatment solution containing ropivacain 0.5% and 40 mg of Kenalog was injected into the joint. The needle was withdrawn sterile dressing was applied.The p atient tolerated procedure well. Plan Patient is status post right hip intra-articular steroid injection with ongoing 70% pain relief with significant improvement in right hip pain and partial improvement in ADLs and mobility. For acute flare up right sided radicular with spinal stenosis related symptoms, will proceed with updating lumbar spine MRI to assess for neural integrity and compression and follow up on previous lumbar MRI findings. We will hold off on any further treatments at this time until MRI is complete. All questions and concerns have been answered and patient agreed with the treatment plan. Patient will return to the clinic to discuss results of the MRI findings when it is done and consider interventional therapy as indicated.? Orders: Orders FL guidance in treatment room Today M16.0 - Bilateral primary osteoarthritis of hip Coding Level of Care Code Procedure Only Diagnoses Lumbar degenerative disc disease M51.36 Spondylosis of lumbosacral spine with radiculopathy M47.27 Failed back syndrome M96.1 Bilateral hip pain M25.551; M25.552 Muscle spasm of back M62.830 Bilateral primary osteoarthritis of hip M16.0
[2024-03-07 09:03] VITALS: BP 107/54; PULSE 72; RESP 17; O2SAT 96
== END 2024-03-07 09:03 | disposition home or self-care (01) ==
PROVIDERS: PCP Internal Medicine; Visit Provider Anesthesiology
DX: M25.552 Pain in left hip (principal)
CPT/HCPCS: 20610; 77002

== ENCOUNTER 2024-03-07 08:34 | Outpatient (AMB) | payer OTHER, SELFPAY ==
--- NOTE | 2024-03-07 12:23 | A.OFFVIS_ITS ---
Intake Visit Reasons: left hip injection Allergies amoxicillin [Augmentin] Allergy (Intermediate, Verified 02/08/24 15:05) rash cat dander Allergy (Intermediate, Verified 02/08/24 15:05) NASAL SYMPTOMS clavulanic acid [Augmentin] Allergy (Intermediate, Verified 02/08/24 15:05) rash trazodone [TRAZODONE] Allergy (Intermediate, Verified 02/08/24 15:05) I CAN'T BREATHE RIGHT , shortness of breath HPI Comments Details: Brittni is back in my office injection procedure area today with complaining mostly on pain in the left hip. On physical examination as below there are signs of left hip osteoarthritis. She was scheduled today to repeat the right hip injection erroneously, she received right hip injection 45 days ago. She reports continuing good results of right hip injection. She requests me to perform less hip injection. It has been more than 1 month since right hip injection so I agreed to perform left hip injection on this patient. Past Procedures: 01/11/24: Right intra-articular hip steroid injection-ongoing 70% pain relief PRIOR: Patient presents today for follow up for chronic low back and bilateral hip pain. She was last seen in our office by Dr. Mahoney in October 2021 with plans to undergo Fentanyl ITDD trial under sedation but opted out. Patient also had Dilaudid trial which results in bad side effects of itching for 24 hours and [employer] SCS trial which provided her only 50% pain relief. Prialt, clonidine and bupivacaine trials were also previously discussed. Patient reports her back pain has been progressively increasing and she is no longer able to manage it on tramadol and low dose Butrans patch. She is interested to return to neuromodulation with ITDD trial and potentially implant. Back pain is localized mainly to the right side and also extends across her lower back and sacral area on the right. She also has significant groin and hip pain, worse on the right with walking and weight bearing, prolonged standing or changing positions. Pain is described as constant stabbing, sharp, punching, cramping, hurting, aching, heavy, spreading and radiating. Patient reports fragmented sleep due to constant awakening during the night due to pain. She has been alternating ice and heat packs, gabapentin and meloxicam with continued symptoms. Patient reports mechanical fall this morning and has landed on her right side of the back. There is a notable linear abrasion on her right lower pa raspinal side without swelling or bruising. Most recent CT scan abdomen and pelvis showed advanced degenerative osteoarthritis of the bilateral hips. PRIOR 10/15/21 Dr. Mahoney: Violetta is 60 years old female who is in the phone today with a history of longstanding back pain. Her pain is across her entire low back and radiates down right leg with associated numbness of entire foot. She notes weakness of bilateral legs occasionally. She denies any bowel/bladder dysfunction or saddle anesthesia. She is s/p a right L4-5 [place] [address] Hudson with no improvements in her pain. She was previously under the care of [facility] who noted they exhausted all efforts to alleviate her pain with no improvements. She is currently at the max dose of Tramadol and has been on this medication for years. She reports minimal alleviation in her pain at this point, despite maximum dose. She attended physical therapy a few months ago with no noticeable change in her pain. She also had chiropractic manipulation but notes no improvement in pain. She denies massage or acupuncture. She last had a lumbar spine MRI in 2019, dictated below. She went for trial of spinal cord stimulator [employer] with me ring and she did not like the results of the stimulation although the anatomical location of stimulation was appropriate. In the past we discussed I DDD to treat her pain. We decided to perform trial of Dilaudid she received 80 micro g for the trial. She reported only 50% pain improvement. She reported severe itching for 24 hours after the injection. Therefore Dilaudid is not her medication. We discussed trial with fentanyl. She agreed to go for trial. I also mentioned nonopioid medications as a trial possibilities. We could try clonidine and bupivacaine is a trial. I also explain her Prialt trial and she will be calling [facility] and find out whether the medication is prohibitive for her in terms of the cost. Meanwhile schedule her for fentanyl trial. [facility] Medical History Moderate recurrent major depression Neck pain BMI 34.0-34.9,adult Leukopenia Sleep apnea Umbilical hernia Liver cyst Obesity (BMI 30-39.9) History of small bowel obstruction Lumbar degenerative disc disease Hematuria Migraines IBS (irritable bowel syndrome) Anemia Arthritis Depression Hypothyroid GERD (gastroesophageal reflux disease) Surgical History History of surgical removal of skin lesion History of ankle surgery History of surgery History of hand surgery Hx of foot surgery History of esophagogastroduodenoscopy (EGD) History of surgery H/O hernia repair History of endometrial ablation H/O tubal ligation H/O knee surgery History of delivery History of bladder surgery Hx of colonoscopy (~02/11/23) History of back surgery H/O: hysterectomy History of bilateral knee replacement Family History Father FH: prostate cancer Mother Breast cancer Bladder cancer Social History Household Members: None Housing: House 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 Alert and oriented. Mood and affect appropriate. Follows and participates in conversation appropriately. Respiratory effort is unlabored. No cough. Able to transition from sit to stand unassisted. Uses cane with ambulation. General: Yes no CVA tenderness Back/Spine/Pelvis Other: Limited lumbar ROM due to pain. Uses cane. She is unable to walk on her toes due to fusion of toes on left and left ankle surgery resulting in limited ROM. Can flex forward to 60-70 degrees and extend to 5-10 degrees before experiencing lumbar pain. Demonstrates 5/5 left and 4/5 right strength of quadriceps bilaterally as well as flexion/dorsiflexion of bilateral feet against re sistance. 2+ pedal pulses bilaterally. Mild groin pain with I/E hip rotations, on the left. Straight leg rise with dorsiflexion positive on the right. Diminished DTRs bilaterally. Unable to perform Zaheer test bilaterally d/t stiffness and pain. Back: no CVA tenderness Cervical Spine: cervical ROM normal, cervical muscular tenderness and No Cervical spine tenderness Thoracic/Lumbar Spine: thoracic and lumbar spine normal to inspection, Thoracic/lumbar spine scar(s), Lasegue's sign positive on the right and lo calized, pain with thoraco-lumbar ROM, paraspinal muscle tenderness, thoraco- lumbar ROM limited, No thoracic spinal tenderness and lumbar spinal tenderness (L4-S1) Pelvis: buttock tenderness on the right and sciatic notch tenderness on the right Sacroiliac joints: bilaterally tender to palpation Extrem Other: Lateral and medial rotation of the left hip cause severe discomfort in the groin on the left. General: Yes capillary refill normal, Yes no clubbing, cyanosis or edema and Yes no calf tenderness Assessment & Plan Assessment & Plan (1) Lumbar degenerative disc disease: Code(s): M51.36 - Other intervertebral disc degeneration, lumbar region Category: Medical (2) Spondylosis of lumbosacral spine with radiculopathy: Code(s): M47.27 - Other spondylosis with radiculopathy, lumbosacral region Category: Medical (3) Failed back syndrome: Code(s): M96.1 - Postlaminectomy syndrome, not elsewhere classified Category: Medical (4) Bilateral hip pain: Code(s): M25.551 - Pain in right hip; M25.552 - Pain in left hip Category: Medical (5) Muscle spasm of back: Code(s): M62.830 - Muscle spasm of back Category: Medical (6) Bilateral primary osteoarthritis of hip: Code(s): M16.0 - Bilateral primary osteoarthritis of hip Category: Medical (7) Left hip pain: Code(s): M25.552 - Pain in left hip Category: Medical Plan Patient requested me to perform left hip intra-articular steroid injection. I agreed with the patient and I will perform this procedure today. Coding Level of Care Code Est Pt Level 3 (52319) Diagnoses Lumbar degenerative disc disease M51.36 Spondylosis of lumbosacral spine with radiculopathy M47.27 Failed back syndrome M96.1 Bilateral hip pain M25.551; M25.552 Muscle spasm of back M62.830 Bilateral primary osteoarthritis of hip M16.0 Left hip pain M25.552
== END 2024-03-07 09:24 | disposition home or self-care (01) ==
LOC: HO.PMCPRC 08:34
PROVIDERS: PCP Internal Medicine; Visit Provider Anesthesiology
DX: M51.36 Other intervertebral disc degeneration, lumbar region (principal); M47.27 Other spondylosis with radiculopathy, lumbosacral region; M96.1 Postlaminectomy syndrome, not elsewhere classified; M25.551 Pain in right hip; M25.552 Pain in left hip; M62.830 Muscle spasm of back; M16.0 Bilateral primary osteoarthritis of hip
CPT/HCPCS: 99213

== ENCOUNTER 2024-03-23 14:40 | Outpatient (REF) | payer OTHER, SELFPAY ==
--- NOTE | ~2024-03-23 | XR_ITS ---
EXAMINATION: XR PELVIS CLINICAL INFORMATION: Hip pain unspecified COMPARISON: None available. TECHNIQUE: AP view of the pelvis. FINDINGS: Diffuse demineralization. Degenerative changes in the imaged lower lumbar spine. Severe degenerative changes in the bilateral hips with obliteration of the joint spaces, remodeling of articular surfaces, periarticular sclerotic and cystic changes. XR/XR pelvis 1-2V IMPRESSION: Severe degenerative changes in the bilateral hips. Electronically signed by: Eliza Gregg MD 04/19/2024 01:38 PM EDT
== END 2024-03-23 14:41 | disposition home or self-care (01) ==
LOC: HO.HOSX 14:40
PROVIDERS: PCP Internal Medicine; Visit Provider Orthopaedic Surgery
DX: M25.559 Pain in unspecified hip (principal); M16.0 Bilateral primary osteoarthritis of hip
CPT/HCPCS: 72170; 99212

== ENCOUNTER 2024-03-23 14:40 | Outpatient (AMB) | payer OTHER, SELFPAY ==
--- NOTE | 2024-03-23 15:08 | MHC.OFFVIS ---
Vital Signs 03/23/24 15:12 Height 5 ft 6 in Weight 230 lb BMI 37.1 Intake Visit Reasons: New Prob - discuss surgery for the left hip Intake Note: Lizbeth is a 63 year old female who presents today to discuss possible surgical intervention of the left hip. She has history of left hip intrarticular injections done with pain management. Last injection done 03/07/24, which has not helped Allergies amoxicillin [Augmentin] Allergy (Intermediate, Verified 03/27/24 13:37) rash cat dander Allergy (Intermediate, Verified 03/27/24 13:37) NASAL SYMPTOMS clavulanic acid [Augmentin] Allergy (Intermediate, Verified 03/27/24 13:37) rash trazodone [TRAZODONE] Allergy (Intermediate, Verified 03/27/24 13:37) I CAN'T BREATHE RIGHT , shortness of breath HPI HPI New Prob - discuss surgery for the left hip: Details: Lizbeth is here for bilateral hip pain. Her right is worse than her left. She has severe disease and cannot ambulate without pain. Her ambulatory capacity is poor and she is in constant pain .She has had injections in the past which no longer provide relief. [facility] Medical History Moderate recurrent major depression Neck pain BMI 34.0-34.9,adult Leukopenia Sleep apnea Umbilical hernia Liver cyst Obesity (BMI 30-39.9) History of small bowel obstruction Lumbar degenerative disc disease Hematuria Migraines IBS (irritable bowel syndrome) Anemia Arthritis Depression Hypothyroid GERD (gastroesophageal reflux disease) Surgical History History of surgical removal of skin lesion History of ankle surgery History of surgery History of hand surgery Hx of foot surgery History of esophagogastroduodenoscopy (EGD) History of surgery H/O hernia repair History of endometrial ablation H/O tubal ligation H/O knee surgery History of delivery History of bladder surgery Hx of colonoscopy (~02/11/23) History of back surgery H/O: hysterectomy History of bilateral knee replacement Family History Father FH: prostate cancer Mother Breast cancer Bladder cancer Social History Household Members: None Housing: House 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 Her right is more painful than her left. Results Reviewed Results Reviewed: I personally reviewed relevant radiographs. Severe bilateral hip osteoarthritis with obliteration of the joint space bilaterally an extensive osteophytes Assessment & Plan Assessment & Plan (1) Bilateral primary osteoarthritis of hip: Code(s): M16.0 - Bilateral primary osteoarthritis of hip Category: Medical Plan: This is a 63-year-old woman with severe bilateral hip osteoarthritis that is symptomatic. She has had a total knee and a periprosthetic fracture which required a retrograde IM nail on the right. She did very well after these but the IM nail is in the femoral canal. It was a short nail and I suspect it will be out of the way of the hip prosthesis. Theoretically it does create a stress riser between the 2 prostheses and I might ultimately require cementing in a shorter stem although I do not think this will be necessary. She does have some valgus malalignment after this injury. I discussed this with her as well as the additional risks, benefits and alternatives to hip arthroplasty. She would like to have her left hip scheduled as an injection which I think is reasonable. I would not inject the right hip as we would have to wait 6 months prior to surgery. I will introduce to her nurse navigator and we will begin the preoperative clearance process. She is a strong and relatively healthy woman who has always recovered very well from prior surgeries. Orders: Orders XR pelvis 1-2V 03/23/24 M25.559 - Pain in unspecified hip Coding Level of Care Code Est Pt Level 4 (86004) Diagnoses Bilateral primary osteoarthritis of hip M16.0
[2024-03-23 15:12] VITALS: BMI 37.1
== END 2024-03-23 15:45 | disposition home or self-care (01) ==
PROVIDERS: PCP Internal Medicine; Visit Provider Orthopaedic Surgery
DX: M16.0 Bilateral primary osteoarthritis of hip (principal)
CPT/HCPCS: 99214

== ENCOUNTER 2024-03-27 13:28 | Outpatient (AMB) | payer OTHER, SELFPAY ==
--- NOTE | 2024-03-27 13:36 | MHC.OFFWIV ---
Intake Vital Signs 03/27/24 13:41 Height 5 ft 6 in Weight 229 lb BMI 37.0 BP 102/70 Blood Pressure Location Lt brachial Position Sitting Pulse 82 Pulse Source Pulse Oximeter Temp 98.4 F Temp Source Oral Pulse Oximetry (%) 98 Oxygen Delivery Method Room Air Intake Visit Reasons: EP- RT foot third toe infected Intake Note: pt c/o RT foot middle toe infection. Started 4 days ago Patient Tobacco Use Status: Former Tobacco user Allergies amoxicillin [Augmentin] Allergy (Intermediate, Verified 03/27/24 13:37) rash cat dander Allergy (Intermediate, Verified 03/27/24 13:37) NASAL SYMPTOMS clavulanic acid [Augmentin] Allergy (Intermediate, Verified 03/27/24 13:37) rash trazodone [TRAZODONE] Allergy (Intermediate, Verified 03/27/24 13:37) I CAN'T BREATHE RIGHT , shortness of breath Do you need a note to return to daycare/school/sports/work: No HPI EP- RT foot third toe infected HPI Details This note is constructed using voice recognition software. While every effort has been made to ensure accuracy, environmental monitoring specialist errors may have been included. The patient is a 63 year old female who presents to the clinic today with concern for infection to her right 4th toe for the past 4 days. She notes that she was seen by a systems development manager approximately 8 days ago at which time they shaved her callus and removed some skin in the area. Over the course of the following 4 days after that she developed erythema, warmth, and discharge from the toe area with some moderate pain. She has not tried anything to improve this, and realize that she needs to likely be on an antibiotic at this point. She did not call the systems development manager back as her 1st appointment was there last day in business so she was unable to follow up with them. [facility] Medical History Moderate recurrent major depression Neck pain BMI 34.0-34.9,adult Leukopenia Sleep apnea Umbilical hernia Liver cyst Obesity (BMI 30-39.9) History of small bowel obstruction Lumbar degenerative disc disease Hematuria Migraines IBS (irritable bowel syndrome) Anemia Arthritis Depression Hypothyroid GERD (gastroesophageal reflux disease) Surgical History History of surgical removal of skin lesion History of ankle surgery History of surgery History of hand surgery Hx of foot surgery History of esophagogastroduodenoscopy (EGD) History of surgery H/O hernia repair History of endometrial ablation H/O tubal ligation H/O knee surgery History of delivery History of bladder surgery Hx of colonoscopy (~02/11/23) History of back surgery H/O: hysterectomy History of bilateral knee replacement Family History Father FH: prostate cancer Mother Breast cancer Bladder cancer Social History Household Members: None Housing: House 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) Alcohol intake: never Comment: medicated, see MAR Patient Tobacco Use Status: Former Tobacco user Tobacco use type: Cigarette Years Smoked: 25 e-Cigarette/Vaping Use: Never Used Second Hand Smoke Exposure: No service: No Current occupational status: unemployed and disabled Cognitive needs: No Hearing needs: No Vision needs: No Review of Systems Const All systems reviewed & are unremarkable except as noted in HPI and below Physical Exam Vital Signs: Last Vital Signs Temp 98.4 F 03/27/24 13:41 Pulse 82 03/27/24 13:41 BP 102/70 03/27/24 13:41 Pulse Ox 98 03/27/24 13:41 Oxygen Delivery Method Room Air 03/27/24 13:41 BMI result Body Mass Index 37.0 Const General: cooperative, healthy appearing, comfortable, no acute distress and alert Orientation/consciousness: patient oriented x3 Limitations: no limitations Skin Other: Erythema, warmth, and and purulent discharge from right 4th toe, surrounding area of recent callus debridement. No erythematous streaking. Good capillary refill. Neuro General: patient oriented x3 Extrem General: Yes normal to inspection, Yes full ROM, Yes capillary refill normal and Yes normal exam except as noted Psych Appearance: grossly normal Mental Status: mental status grossly normal Speech and movement: Normal speech and movement present Affect: normal affect Assessment & Plan Assessment & Plan (1) Cellulitis: Code(s): L03.90 - Cellulitis, unspecified Qualifiers: Site of cellulitis: extremity Site of cellulitis of extremity: toe Laterality: right Qualified Code(s): L03.031 - Cellulitis of right toe Plan: Antimicrobial therapy sent to requested pharmacy. Advised patient to monitor for a erythematous streaking, or any change in color to the toe. I would be concerned that she would require intravenous antibiotic should she develop any these symptoms. Advised follow up with failure to resolve or worsening symptoms. Plan See above for full details and plan. Medications: New sulfamethoxazole-trimethoprim 800-160 mg (Bactrim DS) 1 tab PO BID 7 days 14 tabs 0RF Coding Level of Care Code Est Pt Level 3 (81379) Diagnoses Cellulitis of toe of right foot L03.031 Site of cellulitis: extremity Site of cellulitis of extremity: toe Laterality: right
[2024-03-27 13:41] VITALS: BP 102/70; PULSE 82; TEMP 36.9; O2SAT 98; BMI 37.0
== END 2024-03-27 15:04 | disposition home or self-care (01) ==
PROVIDERS: PCP Internal Medicine; Visit Provider Registered Nurse
DX: L03.031 Cellulitis of right toe (principal)
CPT/HCPCS: 99213

== ENCOUNTER 2024-04-11 16:18 | Outpatient (REF) | payer OTHER, SELFPAY ==
[2024-04-11 16:30] LABS: MANUAL DIFF FLAG NO
[2024-04-11 17:20] LABS: Basophils Percent Auto 0.7 % (0-2); Eosinophils Absolute Auto 0.1 X10*3/uL (0.0-0.4); Eosinophils Percent Auto 1.7 % (0-4); Hematocrit 36.3 % (37.0-47.0); Hemoglobin 11.8 g/dl (12.0-16.0); Imm Gran Abs Auto 0.01 X10*3/uL (0.00-0.03); Imm Gran Pct Auto 0.3 % (0.0-0.4); Lymphocytes Absolute Auto 1.1 X10*3/uL (1.2-4.9); Lymphocytes Percent Auto 37.2 % (20-40); Mean Corpuscular HGB Conc 32.5 g/dl (31.0-35.0); Mean Corpuscular Hemoglobin 31.2 pg (27.0-33.0); Monocytes Absolute Auto 0.3 X10*3/uL (0.1-1.2); Monocytes Percent Auto 9.3 % (2-11); Neutrophils Absolute Auto 1.5 x10*3/uL (2.0-8.3); Neutrophils Percent Auto 50.8 % (45-73); Platelet Count 236 X10*3/uL (160-400); Red Blood Count 3.78 X10*6/uL (4.20-5.50)
[2024-04-11 18:23] LABS: Iron 81 mcg/dL (30-160); Percent Iron Saturation 36 % (15-50); Total Iron Binding Capacity 228 mcg/dL (228-428); Unsaturated Iron Binding 147 ug/dL
[2024-04-11 18:40] LABS: Thyroid Stimulating Hormone 0.91 uIU/mL (0.32-4.0)
== END 2024-04-11 16:19 | disposition home or self-care (01) ==
LOC: HO.LAB 16:18
PROVIDERS: PCP Internal Medicine; Visit Provider Internal Medicine
DX: D64.9 Anemia, unspecified (principal); E03.9 Hypothyroidism, unspecified
CPT/HCPCS: 36415; 83540; 84443; 85025

== ENCOUNTER 2024-04-18 16:38 | Outpatient (AMB) | payer OTHER, SELFPAY ==
--- NOTE | 2024-04-18 16:39 | MHC.PC.OV ---
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: No Accompanied by: Self / Same As Patient Allergies amoxicillin [Augmentin] Allergy (Intermediate, Verified 04/18/24 16:52) rash cat dander Allergy (Intermediate, Verified 04/18/24 16:52) NASAL SYMPTOMS clavulanic acid [Augmentin] Allergy (Intermediate, Verified 04/18/24 16:52) rash trazodone [TRAZODONE] Allergy (Intermediate, Verified 04/18/24 16:52) I CAN'T BREATHE RIGHT , shortness of breath Medication List - Last Reconciled 04/18/24 by Brianda Grant MD acetaminophen 1,000 mg (2 x 500 mg) PO Q6H PRN 30 days albuterol sulfate 90 mcg/actuation (Ventolin HFA) 2 puffs inhalation Q6H PRN 30 days ascorbic acid (vitamin C) 100 mg PO DAILY calcium carbonate (Calcium 500) 500 mg PO DAILY cholecalciferol (vitamin D3) (Vitamin D3) 25 mcg PO DAILY clonazepam 0.5 mg PO BID PRN docusate sodium (Colace) 200 mg (2 x 100 mg) PO BEDTIME 30 days epinephrine IM PRN fluticasone propionate 50 mcg/actuation sprays intranasal PRN gabapentin 800 mg PO TID 90 days glucosamine HCl 500 mg PO DAILY [hand held showerhead As directed] hydrocortisone 2.5% (Proctosol HC) 1 appl LA BEDTIME PRN ibuprofen 800 mg PO TID PRN levothyroxine 150 mcg PO DAILY 90 days loratadine (Allergy Relief (loratadine)) 10 mg PO DAILY 90 days melatonin 5 mg PO BEDTIME meloxicam 15 mg PO DAILY methylcellulose (laxative) (Citrucel) 500 mg PO BID metronidazole 0.75% 1 appl topical BEDTIME multivitamin 1 tab PO DAILY pantoprazole 40 mg PO DAILY 30 days polyethylene glycol 3350 (Miralax) 17 grams PO DAILY quetiapine 600 mg PO BEDTIME [Shoe lift As directed] sulfamethoxazole-trimethoprim 800-160 mg (Bactrim DS) 1 tab PO BID 7 days [toilet seat elevator As directed] tramadol 100 mg (2 x 50 mg) PO Q6H 30 days valacyclovir 1,000 mg PO DAILY 90 days venlafaxine ER 150 mg PO DAILY venlafaxine ER 75 mg PO DAILY walker (Ultra-Light Rollator misc) As directed Tobacco use date assessed: 10/12/23 Dental Screening Dental Screen Date: 10/12/23 HPI HPI Comments History of Present Illness Details This is a 63-year-old female with hypothyroidism, GERD, moderate major depression and bilateral osteoarthritis of hip that comes today for follow-up on her conditions. Walks with a walker for gait stability. Hip osteoarthritis is follow by ortho and she will need both hips replaced. TSH normal. GERD stable with PPIs. Depression stable with Seroquel. Denies any chest pain or shortness on breath. [facility] Medical History (Updated 04/18/24 @ 18:46 by Brianda Grant MD) Right femoral fracture Mild major depression Moderate recurrent major depression Neck pain BMI 34.0-34.9,adult Leukopenia Sleep apnea Umbilical hernia Liver cyst Obesity (BMI 30-39.9) History of small bowel obstruction Lumbar degenerative disc disease Hematuria Migraines IBS (irritable bowel syndrome) Anemia Arthritis Depression Hypothyroid GERD (gastroesophageal reflux disease) Surgical History History of surgical removal of skin lesion History of ankle surgery History of surgery History of hand surgery Hx of foot surgery History of esophagogastroduodenoscopy (EGD) History of surgery H/O hernia repair History of endometrial ablation H/O tubal ligation H/O knee surgery History of delivery History of bladder surgery Hx of colonoscopy (~02/11/23) History of back surgery H/O: hysterectomy History of bilateral knee replacement Family History Father FH: prostate cancer Mother Breast cancer Bladder cancer Social History Household Members: None Housing: House 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 Michael Neville, Morena Olson, Jt Hawkins and colleagues, with an educational ayan from [employer]. Review of Systems Const All systems reviewed & are unremarkable except as noted in HPI and below Card Denies chest pain at rest, Denies chest pain with activity, Denies edema, Denies irregular heart rhythm, Denies claudication, Denies dyspnea, Denies dyspnea on exertion, Denies orthopnea, Denies paroxysmal nocturnal dyspnea and Denies slow heart rate Resp Denies cough, Denies dyspnea and Denies dyspnea on exertion GI Denies abdominal pain, Denies change in bowel habits, Denies excessive flatus, Denies nausea and Denies vomiting Denies urinary incontinence, Denies urinary hesitancy and Denies urinary urgency Musc Denies atrophy, Denies deformity, Reports arthralgias and Denies limited range of motion Skin/Breast Denies bleeding lesions, Denies changing lesions and Denies rash Physical exam (Primary Care) Vital Signs: Last Vital Signs BP 104/60 04/18/24 16:40 BMI result Body Mass Index 36.6 BMI Assessment/Plan discussion: High BMI High, discussed plan: lifestyle, weight reduction, dietary and physical activity Tobacco/Smoking Status: Tobacco use Status Tobacco use date assessed 10/12/23 04/18/24 16:47 Patient Tobacco Use Status Former Tobacco user 04/18/24 16:47 Tobacco use type Cigarette 04/18/24 16:47 e-Cigarette/Vaping Use Never Used 04/18/24 16:47 Thrive Assessment: Date of Thrive Assessment Date Thrive assessed 10/12/23 04/18/24 16:47 Const Limitations: ambulation with walker Resp Effort & Inspection: normal respiratory effort Auscultation: clear to auscultation bilaterally Cardio Jugular venous distension: no JVD Rate: regular rate Rhythm: regular rhythm Heart sounds: S1 normal heart sound present and S2 normal heart sound present Extrem General: Yes full ROM Assessment and Plan Assessment & Plan (1) Moderate recurrent major depression: Code(s): F33.1 - Major depressive disorder, recurrent, moderate Plan: Continue Seroquel. (2) Bilateral primary osteoarthritis of hip: Code(s): M16.0 - Bilateral primary osteoarthritis of hip Plan: Continue tramadol as needed. Follow-up with ortho. (3) Hypothyroid: Code(s): E03.9 - Hypothyroidism, unspecified Plan: Continue levothyroxine. (4) GERD (gastroesophageal reflux disease): Comment: Reviewed procedure reports and pathology continue PPI and avoid culprits Code(s): K21.9 - Gastro-esophageal reflux disease without esophagitis Plan: Continue PPIs. Orders: Orders Lipid Panel 6 Months E78.5 - Hyperlipidemia, unspecified Comprehensive [place]. Panel Fast 6 Months F33.1 - Major depressive disorder, recurrent, moderate Thyroid Stimulating Hormone 6 Months E03.9 - Hypothyroidism, unspecified Medications: Refilled hydrocortisone 2.5% (Proctosol HC) 1 appl LA BEDTIME PRN 30 grams 3RF hemorrhoids Coding Level of Care Code Est Pt Level 4 (41310) Complex EM visit Add On G2211 Diagnoses Moderate recurrent major depression F33.1 Bilateral primary osteoarthritis of hip M16.0 Hypothyroid E03.9 GERD (gastroesophageal reflux disease) K21.9 Time Spent (min) 23
[2024-04-18 16:40] VITALS: BP 104/60; BMI 36.6
== END 2024-04-18 17:05 | disposition home or self-care (01) ==
PROVIDERS: PCP Internal Medicine; Visit Provider Internal Medicine
DX: F33.1 Major depressive disorder, recurrent, moderate (principal); M16.0 Bilateral primary osteoarthritis of hip; E03.9 Hypothyroidism, unspecified; K21.9 Gastro-esophageal reflux disease without esophagitis
CPT/HCPCS: 99214; G2211

== ENCOUNTER 2024-10-12 14:55 | Outpatient (AMB) | payer OTHER, SELFPAY ==
--- NOTE | 2024-10-12 14:55 | MHC.OFFVIS ---
Intake Visit Reasons: New Prob - Bilateral Knee Pain Intake Note: Lizbeth is a 63 year old female who presents today for a new problem visit with complaints of bilateral knee pain. Patient reports that she has had ongoing bilateral knee pain. She reports history of bilateral TKA - Hx of TKA's with [facility] ~10 years ago. She has history of leg fractures that required right TKA revision with NE. She is taking Tramadol and tylenol which are not helpful. 01/30/22 Procedure: 1) Retrograde IMN Right femur 2) revision Right knee arthroplasty ( liner exchange only) 3) Left ankle bimalleolar ORIF She is booked for a Right NAYA 12/12/24. Allergies amoxicillin [Augmentin] Allergy (Intermediate, Verified 04/18/24 16:52) rash cat dander Allergy (Intermediate, Verified 04/18/24 16:52) NASAL SYMPTOMS clavulanic acid [Augmentin] Allergy (Intermediate, Verified 04/18/24 16:52) rash trazodone [TRAZODONE] Allergy (Intermediate, Verified 04/18/24 16:52) I CAN'T BREATHE RIGHT , shortness of breath HPI HPI New Prob - Bilateral Knee Pain: Details: Lizbeth has bilateral hip[ OA that is severe and is scheduled for right NAYA in December. She comes in today with bialteral knee pain. Both knees have been replaced over a decade ago. She denies recent injury, She denies fever/chills. She uses a walker because of her hips. [facility] Medical History (Updated 04/18/24 @ 18:46 by Brianda Grant MD) Right femoral fracture Mild major depression Moderate recurrent major depression Neck pain BMI 34.0-34.9,adult Leukopenia Sleep apnea Umbilical hernia Liver cyst Obesity (BMI 30-39.9) History of small bowel obstruction Lumbar degenerative disc disease Hematuria Migraines IBS (irritable bowel syndrome) Anemia Arthritis Depression Hypothyroid GERD (gastroesophageal reflux disease) Surgical History History of surgical removal of skin lesion History of ankle surgery History of surgery History of hand surgery Hx of foot surgery History of esophagogastroduodenoscopy (EGD) History of surgery H/O hernia repair History of endometrial ablation H/O tubal ligation H/O knee surgery History of delivery History of bladder surgery Hx of colonoscopy (~02/11/23) History of back surgery H/O: hysterectomy History of bilateral knee replacement Family History Father FH: prostate cancer Mother Breast cancer Bladder cancer Social History Household Members: None Housing: House 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) Alcohol intake: never Comment: medicated, see MAR Patient Tobacco Use Status: Former Tobacco user Tobacco use type: Cigarette Years Smoked: 25 e-Cigarette/Vaping Use: Never Used Second Hand Smoke Exposure: No service: No Current occupational status: unemployed and disabled Cognitive needs: No Hearing needs: No Vision needs: No Physical Exam Extrem Other: well healed incisions bilaterally ligamentously stable exam no effusion Assessment & Plan Assessment & Plan (1) Bilateral primary osteoarthritis of hip: Code(s): M16.0 - Bilateral primary osteoarthritis of hip Category: Medical Plan: Lizbeth is here today with some knee pain but predominantly hip pain. Her hips are severely arthritic and she uses a walker to ambulate. She has been having some low grade chronic knee pain as well. I do not, however, recommend intervention. There is no e/o infection and her hips are preventing her from walking. I do not recommend narcotics either We will continue with right NAYA as planned. She is amenable to this. Coding Level of Care Code Est Pt Level 3 (97897) Diagnoses Bilateral primary osteoarthritis of hip M16.0
--- OUTSIDE RECORDS SUMMARY | 2024-10-12 18:25 | XMS_ITS | Clinical Summary ---
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 Name Role Phone Unavailable Primary Care Provider Unavailabl e Immunizations Name Administration Dates Next Due Moderna Covid-19 Vaccine 12+ 12/25/2021, 08/18/2021,12/18/2020,11/21/19 21 Moderna Covid-19 Vaccine 6+ Bivalent 08/21/2022 Social History Tobacco Use Types Packs/Day Years Used Date Smoking Tobacco: Never Assessed Comments Unknown Sex and Gender Information Value Date Recorded Sex Assigned at Female 12/24/2022 10:44 AM EDT Legal Sex Female 2:23 PM EST Gender Identity Female 12/24/2022 10:44 AM EDT Sexual Orientation Not on file Plan of Treatment Health Maintenance Due Date Last Done Comments CT Colonography 1960 Colonoscopy 1960 Colorectal Cancer Screening 1960 Depression Screening 1960 FIT DNA/Cologuard 1960 FIT 1960 FOBT 1960 HIV Screening 1960 SDOH Screening 1960 Sigmoidoscopy 1960 Alcohol/Substance Use Screening 1972 Tobacco Screening 1972 Hepatitis C Screening 1978 DTaP/Tdap/Td Vaccines (1 - Tdap) 12/08/1979 Pap Smear 1981 Cervical Cancer Screening 1990 HPV/Cotest 1990 Mammogram 2000 Zoster Vaccines (1 of 2) 2010 Pneumococcal Vaccine: 50+ Years (2 of 2 - PCV) 08/28/2016 08/28/2015 COVID-19 Vaccine ( season) 2024 08/21/2022, 12/25/2021, 08/18/2021, Additional history exists Influenza Vaccine (#1) 2024 RSV Patients and Patients Aged 60 years or older (1 - 1-dose 75+ series) 12/08/2035 Pneumococcal Vaccine: Pediatrics (0 to 5 Years) and At-Risk Patients (6 to 49) Years) Aged Out 08/28/2015 No longer eligible based on patient's age to complete this topic HIB Vaccines Aged Out No longer eligi ble based on patient's age to complete this topic HPV Vaccines Aged Out No longer eligi ble based on patient's age to complete this topic Hepatitis A Vaccines Aged Out No long er eligible based on patient's age to complete this topic Hepatitis B Vaccines Aged Out No long er eligible based on patient's age to complete this topic IPV Vaccines Aged Out No longer eligi ble based on patient's age to complete this topic Meningococcal Vaccine Aged Out No josé miguel carmen eligible based on patient's age to complete this topic RSV under 20 months Aged Out No longe r eligible based on patient's age to complete this topic Rotavirus Vaccines Aged Out No longer eligible based on patient's age to complete this topic Insurance [place], [place] [facility]
== END 2024-10-12 15:26 | disposition home or self-care (01) ==
PROVIDERS: PCP Internal Medicine; Visit Provider Orthopaedic Surgery
DX: M16.0 Bilateral primary osteoarthritis of hip (principal); M25.561 Pain in right knee; M25.562 Pain in left knee; Z96.653 Presence of artificial knee joint, bilateral
CPT/HCPCS: 99213

== ENCOUNTER → 2024-10-12 14:55 | Outpatient (BNVA) | payer OTHER, SELFPAY | PROVIDERS: PCP Internal Medicine; Visit Provider Orthopaedic Surgery | DX: M25.562 Pain in left knee (principal); M25.561 Pain in right knee; M16.0 Bilateral primary osteoarthritis of hip; Z96.653 Presence of artificial knee joint, bilateral | CPT/HCPCS: 99212 ==

== ENCOUNTER 2024-10-18 14:02 | Outpatient (AMB) | payer OTHER, SELFPAY ==
--- NOTE | 2024-10-18 14:06 | A.OFFVIS_ITS ---
Vital Signs 10/18/24 14:07 Height 5 ft 6 in Weight 229 lb 4.492 oz BMI 37.0 BP 109/54 L Blood Pressure Location Lt brachial Position Sitting Pulse 75 Intake Visit Reasons: Diverticulitis/Becky's PT Intake Note: Lizbeth presents in the office as a Becky patient follow up for Diverticulitis. CC: She states that this is just a routine follow up to continue her medication - no concerns at this time. Certified Physician Assistant Required: No Allergies amoxicillin [Augmentin] Allergy (Intermediate, Verified 10/18/24 14:11) rash cat dander Allergy (Intermediate, Verified 10/18/24 14:11) NASAL SYMPTOMS clavulanic acid [Augmentin] Allergy (Intermediate, Verified 10/18/24 14:11) rash trazodone [TRAZODONE] Allergy (Intermediate, Verified 10/18/24 14:11) I CAN'T BREATHE RIGHT , shortness of breath HPI Comments Details: 63 y.o F with PMH of diverticulosis who is here to continue care with [facility]. Prev [facility] pt. Pt reports no abd pain, N/V, changes in bowel habits. No acute issues today. Prev colo 06/2023 fair prep. Recommendation made to repeat in 5 years vs stool based testing due to multiple colo with fair/poor prep and pt with average risk for colo ca. [facility] Medical History Right femoral fracture Mild major depression Moderate recurrent major depression Neck pain BMI 34.0-34.9,adult Leukopenia Sleep apnea Umbilical hernia Liver cyst Obesity (BMI 30-39.9) History of small bowel obstruction Lumbar degenerative disc disease Hematuria Migraines IBS (irritable bowel syndrome) Anemia Arthritis Depression Hypothyroid GERD (gastroesophageal reflux disease) Surgical History History of surgical removal of skin lesion History of ankle surgery History of surgery History of hand surgery Hx of foot surgery History of esophagogastroduodenoscopy (EGD) History of surgery H/O hernia repair History of endometrial ablation H/O tubal ligation H/O knee surgery History of delivery History of bladder surgery Hx of colonoscopy (~02/11/23) History of back surgery H/O: hysterectomy History of bilateral knee replacement Family History Father FH: prostate cancer Mother Breast cancer Bladder cancer Social History Household Members: None Housing: House 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) Alcohol intake: never Comment: medicated, see MAR Patient Tobacco Use Status: Former Tobacco user Tobacco use type: Cigarette Years Smoked: 25 e-Cigarette/Vaping Use: Never Used Second Hand Smoke Exposure: No service: No Current occupational status: unemployed and disabled Cognitive needs: No Hearing needs: No Vision needs: No Review of Systems Const All systems reviewed & are unremarkable except as noted in HPI and below Physical Exam Vital Signs: Last Vital Signs Pulse 75 10/18/24 14:07 BP 109/54 L 10/18/24 14:07 BMI result Body Mass Index 37.0 No apparent distress Nonicteric Abdomen soft, nondistended Alert and oriented x3, uses walker Assessment & Plan Assessment & Plan (1) Gastritis: Comment: Code(s): K29.70 - Gastritis, unspecified, without bleeding Category: Medical (2) Hx of colonoscopy: Onset Date: ~02/11/23 Code(s): Z98.890 - Other specified postprocedural states Category: Surgical (3) Constipation: Code(s): K59.00 - Constipation, unspecified Plan 1. GERD/gatritis. No acute issues. Has refills. Further refills can be through PCP office. 2. Constipation: Well controlled with fiber and miralax. Has refills. Further re fills can be through PCP office. 3. CRC screening: To be reviewed in 2027 - if pt without iron deficiency anemia, can consider stool based testing. Otherwise, colo will need to be done with 2 day prep. Pt knows to call our office when due for CRC screening. PRN follow up in the meantime. Coding Level of Care Code Est Pt Level 3 (97630) Diagnoses Gastritis K29.70 Hx of colonoscopy Z98.890 Constipation K59.00
[2024-10-18 14:07] VITALS: BP 109/54; PULSE 75; BMI 37.0
--- OUTSIDE RECORDS SUMMARY | 2024-10-18 16:36 | XMS_ITS | Clinical Summary ---
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
== END 2024-10-18 14:28 | disposition home or self-care (01) ==
LOC: HO.HGI 14:03
PROVIDERS: PCP Internal Medicine; Visit Provider Internal Medicine
DX: K29.70 Gastritis, unspecified, without bleeding (principal); Z98.890 Other specified postprocedural states; K59.00 Constipation, unspecified
CPT/HCPCS: 99213

== ENCOUNTER → 2024-10-18 14:02 | Outpatient (BNVA) | payer OTHER, SELFPAY | PROVIDERS: PCP Internal Medicine; Visit Provider Internal Medicine | DX: K29.70 Gastritis, unspecified, without bleeding (principal); K59.00 Constipation, unspecified; Z98.890 Other specified postprocedural states | CPT/HCPCS: 99212 ==

== ENCOUNTER 2024-10-24 09:07 | Outpatient (AMB) | payer OTHER, SELFPAY ==
--- NOTE | 2024-10-24 09:20 | A.OFFPC_ITS ---
Vital Signs 10/24/24 09:21 Height 5 ft 6 in Weight 232 lb BMI 37.4 BP 110/80 Blood Pressure Location Lt brachial Position Sitting Pulse 85 Pulse Source Pulse Oximeter Pulse Oximetry (%) 97 Oxygen Delivery Method Room Air Intake Visit Reasons: [place] ny/Dr. Gibbs 12/12/24 Card Feeder Required: No Accompanied by: Self / Same As Patient Allergies amoxicillin [Augmentin] Allergy (Intermediate, Verified 10/24/24 09:24) rash cat dander Allergy (Intermediate, Verified 10/24/24 09:24) NASAL SYMPTOMS clavulanic acid [Augmentin] Allergy (Intermediate, Verified 10/24/24 09:24) rash trazodone [TRAZODONE] Allergy (Intermediate, Verified 10/24/24 09:24) I CAN'T BREATHE RIGHT , shortness of breath Tobacco use date assessed: 10/24/24 Dental Screening Dental Screen Date: 10/24/24 Did you have a dental visit in the last 12 months?: No Did you have a dental problem in the last 6 months where you did not have access to dental care?: No Was dental information given to patient?: Patient has dentist HPI HPI Comments History of Present Illness Details The patient is a 63-year-old female presenting for a preoperative evaluation for her right total hip replacement scheduled for December 12 of this year. She describes persistent and significant hip pain that limits her mobility and necessitates the use of a walker for stability. She reports significant leg pain contributing to insomnia, alongside concurrent issues with sciatica, constipation, and depression. Her current medications comprehensively address these issues but do not completely alleviate her pain symptoms. Her known allergy to amoxicillin presents further management considerations. Has 5-7 Mets of ADLs. Denies any chest pain or shortness on breath. EKG and labs pending for medical clearance. Going for medium risk surgery. She has hypothyroidism, GERD and moderate major depression that has been stable. Walks with a walker for gait stability due to bilateral osteoarthritis of hip. [facility] Medical History (Updated 10/24/24 @ 09:52 by Brianda Grant MD) Right femoral fracture Mild major depression Moderate recurrent major depression Neck pain BMI 34.0-34.9,adult Leukopenia Sleep apnea Umbilical hernia Liver cyst Obesity (BMI 30-39.9) History of small bowel obstruction Lumbar degenerative disc disease Hematuria Migraines IBS (irritable bowel syndrome) Anemia Arthritis Depression Hypothyroid GERD (gastroesophageal reflux disease) Surgical History History of surgical removal of skin lesion History of ankle surgery History of surgery History of hand surgery Hx of foot surgery History of esophagogastroduodenoscopy (EGD) History of surgery H/O hernia repair History of endometrial ablation H/O tubal ligation H/O knee surgery History of delivery History of bladder surgery Hx of colonoscopy (~02/11/23) History of back surgery H/O: hysterectomy History of bilateral knee replacement Family History Father FH: prostate cancer Mother Breast cancer Bladder cancer Social History Household Members: None Housing: House 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) Alcohol intake: never Comment: medicated, see MAR Patient Tobacco Use Status: Former Tobacco user Tobacco use type: Cigarette Years Smoked: 25 e-Cigarette/Vaping Use: Never Used Second Hand Smoke Exposure: No service: No Current occupational status: unemployed and disabled Cognitive needs: No Hearing needs: No Vision needs: Yes Questionnaire PHQ-9 Over the last 2 weeks, how often have you been bothered by any of the following problems? 1. Little interest or pleasure in doing things: not at all 2. Feeling down, depressed, or hopeless: not at all 3. Trouble falling or staying asleep, or sleeping too much: not at all 4. Feeling tired or having little energy: not at all 5. Poor appetite or overeating: not at all 6. Feeling bad about yourself - or that you are a failure or have let yourself or your family down: not at all 7. Trouble concentrating on things, such as reading the newspaper or watching television: not at all 8. Moving or speaking so slowly that other people could have noticed. Or the opposite - being so fidgety or restless that you have been moving around a lot more than usual: not at all 9. Thoughts that you would be better off or of hurting yourself in some way: not at all Total score: 0 Depression Screening Interpretation: Negative Depression Screening Done: Yes 58724 - PHQ-9 Billing: Yes Source: Developed by Drs. Michael Neville, Jt Houston and colleagues, with an educational ayan from [employer]. Thrive Questionnaire Date Thrive assessed: 10/24/24 I am a: Patient What is your living situation today?: I have a steady place to live Within the past 12 months, did the food you bought not last and you didn't have the money to get more?: Never true Within the past 12 months, did you worry whether your food would run out before you got money to buy more?: Never true Do you have trouble paying for medicines?: No Do you have trouble getting transportation to medical appointments?: No Do you have trouble paying your heating and electricity bill?: No Do you have trouble taking care of your child, family member or friend?: No Do you have trouble with day-to-day activities such as bathing, preparing meals, shopping, managing finances, etc.?: No Are you currently unemployed and looking for a job?: No Are you interested in more education?: No Please select the resources that you would like help with: None Currently or been in a relationship where the following occur: No concerns reported THRIVE Score: 0 AUDIT C Alcohol Use Questionnaire (AUDIT-C) 1. How often do you have a drink containing alcohol?: Never Total Score: 0 DB-7 AMB Questionnaire DB-7 Date DB - 7 assessed: 10/24/24 Feeling nervous, anxious, or on edge: 1 = Several days Not being able to stop or control worryin = Not at all Worrying too much about different things: 0 = Not at all Trouble relaxin = Not at all Being so restless that it is hard to sit still: 0 = Not at all Becoming easily annoyed or irritable: 0 = Not at all Feeling afraid as if something awful might happen: 0 = Not at all Total DB-7 score (0-4 normal; 5-9 mild; 10-14 moderate; 15-21 severe): 1 Source: Developed by Drs. Michael Neville, Jt Houston and colleagues, with an educational ayan from [employer]. Review of Systems Const All systems reviewed & are unremarkable except as noted in HPI and below Card Denies chest pain at rest, Denies chest pain with activity, Denies edema, Denies irregular heart rhythm, Denies claudication, Denies dyspnea, Denies dyspnea on exertion, Denies orthopnea, Denies paroxysmal nocturnal dyspnea and Denies slow heart rate Resp Denies cough, Denies dyspnea and Denies dyspnea on exertion Musc Reports back pain and Reports arthralgias Physical exam (Primary Care) Vital Signs: Last Vital Signs Pulse 85 10/24/24 09:21 BP 110/80 10/24/24 09:21 Pulse Ox 97 10/24/24 09:21 Oxygen Delivery Method Room Air 10/24/24 09:21 BMI result Body Mass Index 37.4 BMI Assessment/Plan discussion: High BMI High, discussed plan: lifestyle, weight reduction, dietary and physical activity Tobacco/Smoking Status: Tobacco use Status Tobacco use date assessed 10/24/24 10/24/24 09:27 Patient Tobacco Use Status Former Tobacco user 10/24/24 09:27 Tobacco use type Cigarette 10/24/24 09:27 e-Cigarette/Vaping Use Never Used 10/24/24 09:27 PHQ-9: PHQ-9 Score PHQ-9: Total score 0 10/24/24 09:48 Depression Screening Interpretation: Negative Thrive Assessment: Date of Thrive Assessment Date Thrive assessed 10/24/24 10/24/24 09:27 Currently or been in a relationship where the following occur: No concerns reported Const Limitations: ambulation with walker Resp Effort & Inspection: normal respiratory effort Auscultation: clear to auscultation bilaterally Cardio Jugular venous distension: no JVD Rate: regular rate Rhythm: regular rhythm Heart sounds: S1 normal heart sound present and S2 normal heart sound present Extrem General: Yes full ROM Coding Level of Care Code Est Pt Level 4 (40263) Complex EM visit Add On G2211 Diagnoses Pre-op evaluation Z01.818 Moderate recurrent major depression F33.1 Bilateral primary osteoarthritis of hip M16.0 Hypothyroid E03.9 GERD (gastroesophageal reflux disease) K21.9 Additional Codes PHQ-9 - 82826 - PHQ-9 Billing: Yes ([id number]) Time Spent (min) 23 Assessment & Plan Assessment & Plan (1) Pre-op evaluation: Code(s): Z01.818 - Encounter for other preprocedural examination Category: Medical (2) Moderate recurrent major depression: Code(s): F33.1 - Major depressive disorder, recurrent, moderate Category: Medical (3) Bilateral primary osteoarthritis of hip: Code(s): M16.0 - Bilateral primary osteoarthritis of hip Category: Medical (4) Hypothyroid: Code(s): E03.9 - Hypothyroidism, unspecified Category: Medical (5) GERD (gastroesophageal reflux disease): Comment: Reviewed procedure reports and pathology continue PPI and avoid culprits Code(s): K21.9 - Gastro-esophageal reflux disease without esophagitis Category: Medical Plan For the patient's upcoming total hip replacement surgery, I will facilitate a thorough preoperative evaluation, including an EKG and fasting blood work, to ascertain surgical readiness. Concurrent evaluations for hypothyroidism management will also be conducted to ensure continuity of care. The anticipated outcome is a significant reduction in chronic hip pain, contributing to enhanced mobility and overall quality of life improvements. The patient currently utilizes a complex regimen of medications, notably for pain, insomnia, and depression, all of which will be closely monitored to optimize post-operative recovery. Follow-ups are vital for managing postoperative complications and ensuring complete rehabilitation. Ongoing treatments for associated problems, such as constipation and allergies, will be maintained. Patient was informed and verbally consented to the use of an ambient scribe for clinic note documentation during this visit. I discussed at length with the patient the benefits of undergoing a right total hip replacement, particularly in terms of alleviating chronic pain and improving overall functional capability. I emphasized that preoperative evaluations are essential to ascertain cardiac and pulmonary readiness for surgery. The patient acknowledged the risks associated with surgical intervention, including infection and potential surgical complications, but agreed with the recommendation to proceed. We discussed her current medication regimen, highlighting the importance of managing pain and supporting psychological stability. The patient was instructed to adhere closely to pre-surgical protocols, including necessary assessments such as the EKG and blood work. Future follow-ups were discussed to monitor recovery and address any emerging issues post-surgery. Orders: Orders ECG 12 lead EKG Today Z01.818 - Encounter for other preprocedural examination Lipid Panel Today E78.5 - Hyperlipidemia, unspecified Comprehensive [place]. Panel Fast Today Z01.818 - Encounter for other preprocedural examination Complete Blood Count Auto Diff Today M54.50 - Low back pain, unspecified Thyroid Stimulating Hormone Today E03.9 - Hypothyroidism, unspecified Patient Instructions: - Complete all preoperative assessments, including EKG and blood work. - Continue current medication regimen as prescribed, noting any side effects. - Use the walker for stability, avoiding falls. - Monitor for any signs of infection or complications post-surgery. - Follow up as scheduled for postoperative evaluation and management. - Report any new or worsening symptoms immediately.
[2024-10-24 09:21] VITALS: BP 110/80; PULSE 85; O2SAT 97; BMI 37.4
--- OUTSIDE RECORDS SUMMARY | 2024-10-24 09:46 | XMS_ITS | Clinical Summary ---
Author Organization [employer] Address [address] [place] [address] Care Team Providers Care Associate Program Manager Name Role Phone Unavailable Primary Care Provider [...] patient's age to complete this topic Insurance [place], [place] [facility]
== END 2024-10-24 09:53 | disposition home or self-care (01) ==
LOC: HO.HMCH 09:07
PROVIDERS: PCP Internal Medicine; Visit Provider Internal Medicine
DX: Z01.818 Encounter for other preprocedural examination (principal); F33.1 Major depressive disorder, recurrent, moderate; M16.0 Bilateral primary osteoarthritis of hip; E03.9 Hypothyroidism, unspecified; K21.9 Gastro-esophageal reflux disease without esophagitis

== ENCOUNTER → 2024-10-24 09:07 | Outpatient (BNVA) | payer OTHER, SELFPAY | PROVIDERS: PCP Internal Medicine; Visit Provider Internal Medicine | DX: Z01.818 Encounter for other preprocedural examination (principal); F33.1 Major depressive disorder, recurrent, moderate; M16.0 Bilateral primary osteoarthritis of hip; E03.9 Hypothyroidism, unspecified; K21.9 Gastro-esophageal reflux disease without esophagitis | CPT/HCPCS: 96127; 99212 ==

== ENCOUNTER → 2024-11-07 10:44 | Outpatient (BNVA) | payer OTHER, SELFPAY | PROVIDERS: PCP Internal Medicine | DX: Z01.818 Encounter for other preprocedural examination (principal) ==

== ENCOUNTER → 2024-11-14 10:49 | Outpatient (REF) | payer OTHER, SELFPAY ==
--- NOTE | 2024-11-14 10:55 | ECG_ITS ---
Test Reason : PREOP Blood Pressure : */* mmHG Vent. Rate : 69 BPM Atrial Rate : 69 BPM P-R Int : 186 ms QRS Dur : 88 ms QT Int : 398 ms P-R-T Axes : 74 62 72 degrees QTcB Int : 426 ms Normal sinus rhythm Normal ECG When compared with ECG of 28-Jan-2023 17:14, No significant change was found Referred By: Brianda Grant Electronically Signed By: Teo Chery
[2024-11-14 10:59] LABS: MANUAL DIFF FLAG NO
[2024-11-14 11:24] LABS: Basophils Percent Auto 0.8 % (0-2); Eosinophils Absolute Auto 0.1 X10*3/uL (0.0-0.4); Eosinophils Percent Auto 1.8 % (0-4); Hematocrit 36.1 % (37.0-47.0); Hemoglobin 12.1 g/dl (12.0-16.0); Imm Gran Abs Auto 0.02 X10*3/uL (0.00-0.03); Imm Gran Pct Auto 0.5 % (0.0-0.4); Lymphocytes Absolute Auto 1.5 X10*3/uL (1.2-4.9); Lymphocytes Percent Auto 38.8 % (20-40); Mean Corpuscular HGB Conc 33.5 g/dl (31.0-35.0); Mean Corpuscular Hemoglobin 30.8 pg (27.0-33.0); Mean Corpuscular Volume 91.9 fL (80.0-98.0); Mean Platelet Volume 9.6 fL (9.4-12.3); Monocytes Absolute Auto 0.3 X10*3/uL (0.1-1.2); Monocytes Percent Auto 7.6 % (2-11); Neutrophils Percent Auto 50.5 % (45-73); Platelet Count 184 X10*3/uL (160-400); Red Blood Count 3.93 X10*6/uL (4.20-5.50); Red Cell Distribution Width 14.4 % (11.0-16.0); White Blood Count 3.9 X10*3/uL (4.8-10.8)
[2024-11-14 13:08] LABS: Alanine Aminotransferase 15 U/L (0-31); Albumin Level 4.2 g/dL (3.5-5.0); Anion Gap 12 (12-20); Aspartate Amino Transferase 27 U/L (5-31); Bilirubin Total 0.4 mg/dL (0.0-1.0); Blood Urea Nitrogen 20 mg/dL (9-16); Calcium 9.9 mg/dL (8.4-10.2); Carbon Dioxide 26 mmol/L (22-29); Chloride 107 mmol/L (96-108); Cholesterol 222 mg/dL (<200); Estimated Glomerular Filt Rate > 60; Glucose Fasting 80 mg/dL (60-99); HDL Cholesterol 46 mg/dL (>40); LDL Cholesterol Calculated 139 mg/dL (<100); Potassium 4.2 mmol/L (3.3-5.1); Sodium 141 mmol/L (135-145); Total Protein 6.7 g/dL (6.5-8.0); Triglycerides 187 mg/dL (<150)
[2024-11-14 13:10] LABS: Thyroid Stimulating Hormone 11.28 uIU/mL (0.32-4.0)
--- OUTSIDE RECORDS SUMMARY | 2024-11-14 13:10 | XMS_ITS | Clinical Summary ---
Author Organization [employer] Address [address] [place] [address] Care Team Providers Care Cross Country And Track And Field Coach Name Role Phone Unavailable Primary Care Provider [...] patient's age to complete this topic Insurance [place], [place] [facility]
[2024-11-14 13:24] LABS: Alkaline Phosphatase 92 U/L (39-117)
== END ==
LOC: HO.CARD 10:49
PROVIDERS: PCP Internal Medicine; Visit Provider Internal Medicine
DX: Z01.818 Encounter for other preprocedural examination (principal); M54.50 Low back pain, unspecified; F33.1 Major depressive disorder, recurrent, moderate; E03.9 Hypothyroidism, unspecified; E78.5 Hyperlipidemia, unspecified
CPT/HCPCS: 36415; 80053; 80061; 84443; 85025; 93005

== ENCOUNTER → 2024-11-14 10:55 | Outpatient (BNV) | payer OTHER, SELFPAY | PROVIDERS: PCP Internal Medicine; Visit Provider Internal Medicine Cardiovascular Disease | DX: Z01.810 Encounter for preprocedural cardiovascular examination (principal) | CPT/HCPCS: 93010 ==

== ENCOUNTER 2024-12-07 13:13 | Outpatient (AMB) | payer OTHER, SELFPAY ==
--- NOTE | 2024-12-07 13:16 | MHC.OFFVIS ---
Intake Visit Reasons: Pre-Op: R NAYA w/NE 12/12/24 Intake Note: Lizbeth is a 63 year old female who presents today for a preoperative RT NAYA, DOS 12/12/24. Pain management agreement reviewed and signed. Allergies amoxicillin [Augmentin] Allergy (Intermediate, Verified 11/07/24 10:59) rash cat dander Allergy (Intermediate, Verified 11/13/24 08:50) Nasal congestion clavulanic acid [Augmentin] Allergy (Intermediate, Verified 11/07/24 10:59) rash trazodone [TRAZODONE] Allergy (Intermediate, Verified 11/13/24 08:50) Shortness of Breath HPI HPI Pre-Op: R NAYA w/NE 12/12/24: Details: Brittni is a 64-year-old woman who comes in today with severe bilateral hip osteoarthritis. I have seen her in the past and we did discuss surgery and discussed right hip replacement versus left hip replacement. She can not ambulate and uses a combination of a walker and occasionally a wheelchair. She has significant loss of motion and pain that involves her groin region mostly. She has tried nonoperative treatment. Of note she had a retrograde nail for a periprosthetic fracture after her right total knee replacement. She states otherwise she feels pretty well. She denies chest pain/shortness of breath. She has sleep apnea but can not tolerate BiPAP. She is moderately obese with a BMI in the high 30s. [facility] Medical History (Updated 11/14/24 @ 09:57 by Evelia Lloyd RN) Diverticulosis Mild major depression Right femoral fracture Neck pain BMI 34.0-34.9,adult Leukopenia Sleep apnea Liver cyst Obesity (BMI 30-39.9) History of small bowel obstruction Lumbar degenerative disc disease Hematuria Migraines IBS (irritable bowel syndrome) Anemia Arthritis Hypothyroid GERD (gastroesophageal reflux disease) Surgical History (Updated 11/14/24 @ 10:01 by Evelia Lloyd RN) History of surgical removal of skin lesion History of ankle surgery History of surgery History of hand surgery Hx of foot surgery History of esophagogastroduodenoscopy (EGD) History of surgery H/O hernia repair History of endometrial ablation H/O tubal ligation History of delivery History of bladder surgery Hx of colonoscopy (~02/11/23) History of back surgery H/O: hysterectomy History of bilateral knee replacement Family History Father FH: prostate cancer Mother Breast cancer Bladder cancer Social History Household Members: None Housing: House Are you a primary customer care team coach to a significant other at home: No 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 have visiting nurse or other home services: No Alcohol intake: never Comment: medicated, see MAR Patient Tobacco Use Status: Former Tobacco user Tobacco use type: Cigarette Years Smoked: 24 e-Cigarette/Vaping Use: Never Used Second Hand Smoke Exposure: No service: No Current occupational status: unemployed and disabled Cognitive needs: No Hearing needs: No Vision needs: Yes Review of Systems Const Reports as per HPI and Reports no additional complaints Eyes Reports no additional complaints Card Reports as per HPI and Reports no additional complaints Resp Reports as per HPI and Reports no additional complaints GI Reports as per HPI and Reports no additional complaints Musc Details: Shoulder pain Skin/Breast Reports system reviewed and no additional complaints, except as documented Neuro Reports no additional complaints Psych Reports no additional complaints Physical Exam Const General: cooperative, healthy appearing, no acute distress, well developed and alert HEENT Head: Yes normal to inspection, Yes normocephalic and Yes atraumatic Mouth: moist mucous membranes Eyes General: appearance normal, both eyes and all related structures EOM: EOMs intact bilaterally Chest Other: no audible wheezing. Resp Other: No audible wheezing Effort & Inspection: normal respiratory effort Cardio Other: Radial pulse palpable with no rythmic abnormalities Back/Spine/Pelvis Cervical Spine: normal cervical lordosis Skin General skin exam: no rashes or lesions noted Neuro General: no focal motor deficits Extrem Other: She is moderately obese with a 2+ dorsalis pedis pulse. She has minimal range of motion bilateral hips with positive impingement test. She is firing ehl/ta/gc Psych Appearance: grossly normal and well kempt Mental Status: mental status grossly normal Speech and movement: Normal speech and movement present Affect: normal affect Attitude: cooperative Results Reviewed Results Reviewed: I personally reviewed relevant radiographs. Severe bilateral hip OA Assessment & Plan Assessment & Plan (1) Pre-op evaluation: Code(s): Z01.818 - Encounter for other preprocedural examination Category: Medical Plan: (2) Bilateral primary osteoarthritis of hip: Code(s): M16.0 - Bilateral primary osteoarthritis of hip Category: Medical Plan: This is a 64-year-old woman with severe osteoarthritis bilateral hips. She is scheduled for hip replacement and I see no reason to not proceed forward. I do think we should start with the left however. She has a retrograde nail in the right and I think it is safe for her to start with the left. They are equally painful. I discussed the surgery again with her in detail. I discussed the risks, benefits and alternatives of hip replacement surgery including but limited to, the risk of infection, fracture, dislocation, leg length discrepancy, nerve injury as well as the medical complications associated with surgery including blood clots, pulmonary embolism, pneumonia, urinary tract infections as well as the risk of aseptic loosening in the future. She expressed understanding. All her questions were answered. I have put an order in for taken screen. Orders: Orders Type and Screen Today Z01.818 - Encounter for other preprocedural examination Coding Level of Care Code Global (37017) Diagnoses Pre-op evaluation Z01.818 Bilateral primary osteoarthritis of hip M16.0
--- OUTSIDE RECORDS SUMMARY | 2024-12-07 15:40 | XMS_ITS | Clinical Summary ---
Author Organization [employer] Address [address] [place] [address] Care Team Providers Care Blood Typer Name Role Phone Unavailable Primary Care Provider [...] patient's age to complete this topic Insurance [place], [place] [facility] ONE CARE < 65 * Guarantor: Jr Parekh Account Type Relation to Patient Date of Phone Billing Address Personal/Family Self [place], [place]
== END 2024-12-07 13:38 | disposition home or self-care (01) ==
LOC: HO.HOS 13:13
PROVIDERS: PCP Internal Medicine; Visit Provider Orthopaedic Surgery
DX: Z01.818 Encounter for other preprocedural examination (principal); M16.0 Bilateral primary osteoarthritis of hip
CPT/HCPCS: 99024

== ENCOUNTER → 2024-12-07 13:13 | Outpatient (BNVA) | payer OTHER, SELFPAY | PROVIDERS: PCP Internal Medicine; Visit Provider Orthopaedic Surgery | DX: Z00.00 Encounter for general adult medical examination without abnormal findings (principal); Z01.818 Encounter for other preprocedural examination; R22.1 Localized swelling, mass and lump, neck; F33.1 Major depressive disorder, recurrent, moderate; E03.8 Other specified hypothyroidism; E06.3 Autoimmune thyroiditis; M16.0 Bilateral primary osteoarthritis of hip | CPT/HCPCS: 96127; 99212; 99396 ==

== ENCOUNTER 2024-12-07 16:54 | Outpatient (AMB) | payer OTHER, SELFPAY ==
--- NOTE | 2024-12-07 17:01 | MHC.PC.OV ---
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 Required: No Accompanied by: Self / Same As Patient Allergies amoxicillin [Augmentin] Allergy (Intermediate, Verified 12/07/24 17:10) rash cat dander Allergy (Intermediate, Verified 12/07/24 17:10) Nasal congestion clavulanic acid [Augmentin] Allergy (Intermediate, Verified 12/07/24 17:10) rash trazodone [TRAZODONE] Allergy (Intermediate, Verified 12/07/24 17:10) Shortness of Breath Medication List - Last Reconciled 12/07/24 by Brianda Grant MD [4 wheel walker with seat As directed] acetaminophen 1,000 mg (2 x 500 mg) PO Q6H PRN 30 days albuterol sulfate 90 mcg/actuation (Ventolin HFA) 2 puffs inhalation Q6H PRN 30 days ascorbic acid (vitamin C) 100 mg PO QAM calcium carbonate 600 mg PO QAM cholecalciferol (vitamin D3) 125 mcg PO QAM clonazepam 0.5 mg PO BID PRN docusate sodium (Colace) 200 mg (2 x 100 mg) PO BEDTIME 30 days epinephrine 0.3 mg IM ONCE PRN fluticasone propionate 50 mcg/actuation 1 spray intranasal DAILY PRN gabapentin 800 mg PO TID 90 days glucosamine HCl 500 mg PO QAM Grab bar As directed [hand held showerhead As directed] hydrocortisone 2.5% (Proctosol HC) 1 appl AR BEDTIME PRN levothyroxine 150 mcg PO QAM loratadine (Allergy Relief (loratadine)) 10 mg PO QAM melatonin 5 mg PO BEDTIME meloxicam 15 mg PO QAM methylcellulose (laxative) (Citrucel) 500 mg PO BID multivitamin 1 tab PO QAM pantoprazole 40 mg PO QAM polyethylene glycol 3350 (Miralax) 17 grams PO QAM quetiapine 600 mg PO BEDTIME [Shoe lift As directed] [toilet seat elevator As directed] tramadol 100 mg PO TID valacyclovir 1,000 mg PO QAM venlafaxine ER 150 mg PO QAM venlafaxine ER 75 mg PO QAM walker (Ultra-Light Rollator misc) As directed walker Folding Front wheeled walker duration 99 days Tobacco use date assessed: 10/24/24 Fall risk assessment: No Falls in past year Last assessed Fall Risk: 12/07/24 Dental Screening Dental Screen Date: 10/24/24 HPI HPI Comments History of Present Illness Details The patient is a 64-year-old female presenting for her physical exam. She has been managing hypothyroidism through levothyroxine, with curmrent lab results indicating a requirement for dosage adjustment due to heightened TSH levels. The patient adheres closely to her regimen and has a history of past interventions for this condition. Her cardiovascular health remains stable with slight elevations in cholesterol levels and a Hiko risk score of 3%. She has a background of orthopedic surgeries affecting her ambulation, highlighting ongoing physical discomfort, specifically concerning her knees and feet. The patient's preventive care is current, including her vaccines, bone density, and colonoscopy evaluations. There are notable oncological concerns within the family history, with cancers affecting her parents. Despite a distant history of smoking, she has maintained a non-smoking status for over two decades. A sedentary lifestyle may be contributing to her hyperlipidemia. The patient is proactive in managing her health, indicated by her adherence to treatment protocols and initiatives to improve her well-being. - Immunizations up to date - Mammogram appointment scheduled for January 18, 2023, after surgery - Bone density scan completed in 2021, next recommended in 2023 - Colonoscopy completed in 2022, next recommended in 2032 - Elevated cholesterol addressed through lifestyle it with low Hiko risk of 3% - Follow-up on thyroid management to be reassessed in 8 weeks with lab work [facility] Medical History Diverticulosis Mild major depression Right femoral fracture Neck pain BMI 34.0-34.9,adult Leukopenia Sleep apnea Liver cyst Obesity (BMI 30-39.9) History of small bowel obstruction Lumbar degenerative disc disease Hematuria Migraines IBS (irritable bowel syndrome) Anemia Arthritis Hypothyroid GERD (gastroesophageal reflux disease) Surgical History History of surgical removal of skin lesion History of ankle surgery History of surgery History of hand surgery Hx of foot surgery History of esophagogastroduodenoscopy (EGD) History of surgery H/O hernia repair History of endometrial ablation H/O tubal ligation History of delivery History of bladder surgery Hx of colonoscopy (~02/11/23) History of back surgery H/O: hysterectomy History of bilateral knee replacement Family History Father FH: prostate cancer Mother Breast cancer Bladder cancer Social History Household Members: None Housing: House Are you a primary technical healthcare consultant to a significant other at home: No 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 have visiting nurse or other home services: No Alcohol intake: never Comment: medicated, see MAR Patient Tobacco Use Status: Former Tobacco user Tobacco use type: Cigarette Years Smoked: 24 e-Cigarette/Vaping Use: Never Used Second Hand Smoke Exposure: No service: No Current occupational status: unemployed and disabled Cognitive needs: Yes Hearing needs: No Vision needs: Yes Questionnaire PHQ-9 Over the last 2 weeks, how often have you been bothered by any of the following problems? 1. Little interest or pleasure in doing things: several days 2. Feeling down, depressed, or hopeless: several days 3. Trouble falling or staying asleep, or sleeping too much: not at all 4. Feeling tired or having little energy: not at all 5. Poor appetite or overeating: not at all 6. Feeling bad about yourself - or that you are a failure or have let yourself or your family down: not at all 7. Trouble concentrating on things, such as reading the newspaper or watching television: not at all 8. Moving or speaking so slowly that other people could have noticed. Or the opposite - being so fidgety or restless that you have been moving around a lot more than usual: not at all 9. Thoughts that you would be better off or of hurting yourself in some way: not at all Total score: 2 Depression Screening Interpretation: Positive Depression Screening Follow-up: Existing condition, In treatment, Community Mental Health Worker F/U and Follow-up Visit Requested Depression Screening Done: Yes 46510 - PHQ-9 Billing: Yes Source: Developed by Drs. Michael Neville, Morena Olson, Jt Hawkins and colleagues, with an educational ayan from [employer]. Thrive Questionnaire Date Thrive assessed: 10/24/24 I am a: Patient What is your living situation today?: I have a steady place to live Within the past 12 months, did the food you bought not last and you didn't have the money to get more?: Never true Within the past 12 months, did you worry whether your food would run out before you got money to buy more?: Never true Do you have trouble paying for medicines?: No Do you have trouble getting transportation to medical appointments?: No Do you have trouble paying your heating and electricity bill?: No Do you have trouble taking care of your child, family member or friend?: No Do you have trouble with day-to-day activities such as bathing, preparing meals, shopping, managing finances, etc.?: No Are you currently unemployed and looking for a job?: No Are you interested in more education?: No Please select the resources that you would like help with: None Currently or been in a relationship where the following occur: No concerns reported THRIVE Score: 0 AUDIT C Alcohol Use Questionnaire (AUDIT-C) 1. How often do you have a drink containing alcohol?: Never Total Score: 0 Score Reviewed/Action Taken: No DB-7 AMB Questionnaire DB-7 Date DB - 7 assessed: 10/24/24 Feeling nervous, anxious, or on edge: 1 = Several days Not being able to stop or control worryin = Not at all Worrying too much about different things: 0 = Not at all Trouble relaxin = Not at all Being so restless that it is hard to sit still: 0 = Not at all Becoming easily annoyed or irritable: 0 = Not at all Feeling afraid as if something awful might happen: 0 = Not at all Total DB-7 score (0-4 normal; 5-9 mild; 10-14 moderate; 15-21 severe): 1 Source: Developed by Drs. Michael Neville, Morena Olson, Jt Hawkins and colleagues, with an educational ayan from [employer]. DB-7 Assessment Billing DB-7 Assessment Tool: DB-7 Assessment 50163 Review of Systems Const All systems reviewed & are unremarkable except as noted in HPI and below Card Denies chest pain at rest, Denies chest pain with activity, Denies edema, Denies irregular heart rhythm, Denies claudication, Denies dyspnea, Denies dyspnea on exertion, Denies orthopnea, Denies paroxysmal nocturnal dyspnea and Denies slow heart rate Resp Denies cough, Denies dyspnea and Denies dyspnea on exertion Musc Reports back pain and Reports arthralgias Physical exam (Primary Care) Vital Signs: Last Vital Signs BP 122/84 12/07/24 17:02 BMI result Body Mass Index 37.1 BMI Assessment/Plan discussion: High BMI High, discussed plan: lifestyle, weight reduction, dietary and physical activity Tobacco/Smoking Status: Tobacco use Status Tobacco use date assessed 10/24/24 12/07/24 17:08 Patient Tobacco Use Status Former Tobacco user 12/07/24 17:08 Tobacco use type Cigarette 12/07/24 17:08 e-Cigarette/Vaping Use Never Used 12/07/24 17:08 PHQ-9: PHQ-9 Score PHQ-9: Total score 2 12/07/24 19:10 Depression Screening Interpretation: Positive Depression Screening Follow-up: Existing condition, In treatment, Community Mental Health Worker F/U and Follow-up Visit Requested Thrive Assessment: Date of Thrive Assessment Date Thrive assessed 10/24/24 12/07/24 17:08 Currently or been in a relationship where the following occur: No concerns reported Const Limitations: ambulation with walker HENMT Head: Yes normal to inspection, Yes normocephalic and Yes atraumatic Ears: external ears normal Eyes General: appearance normal, both eyes and all related structures Eyelids: Yes eyelids normal Conjunctivae: conjunctivae normal Neck Neck: Yes normal visual inspection and Yes supple Resp Effort & Inspection: normal respiratory effort Auscultation: clear to auscultation bilaterally Cardio Jugular venous distension: no JVD Rate: regular rate Rhythm: regular rhythm Heart sounds: S1 normal heart sound present and S2 normal heart sound present GI Inspection: Yes normal to inspection Palpation (GI): Soft to palpation and nontender Auscultation: normal bowel sounds Skin General skin exam: no rashes or lesions noted Neuro General: no focal motor deficits Extrem General: Yes full ROM Psych Appearance: grossly normal Coding Level of Care Code Est Pt Level 3 (10688) Est Pt Prev Care 40-64y(53532) Diagnoses Physical exam Z00.00 Lump in neck R22.1 Moderate recurrent major depression F33.1 Additional Codes DB-7 Assessment Billing - DB-7 Assessment Tool: DB-7 Assessment 06596 ([id number]) PHQ-9 - 20232 - PHQ-9 Billing: Yes ([id number]) Time Spent (min) 33 Assessment & Plan Assessment & Plan (1) Physical exam: Code(s): Z00.00 - Encounter for general adult medical examination without abnormal findings Category: Medical (2) Lump in neck: Code(s): R22.1 - Localized swelling, mass and lump, neck Category: Medical (3) Moderate recurrent major depression: Code(s): F33.1 - Major depressive disorder, recurrent, moderate Category: Medical Plan I will continue to manage thyroid function with an adjusted levothyroxine prescription due to elevated TSH levels. A follow-up laboratory assessment is scheduled in 8 weeks post-surgery. Hypercholesterolemia does not warrant immediate changes beyond current lifestyle adjustments, as cardiovascular risk remains low. A timely mammogram is planned in January, and past surgical impacts on her mobility suggest continued rehabilitation efforts. Screening and vigilance are prioritized due to significant oncological family history. Patient was informed and verbally consented to the use of an ambient scribe for clinic note documentation during this visit. I discussed the current elevated TSH and recommended increasing her levothyroxine to improve thyroid control, mentioning the necessity for follow-up labs post-educational. The patient's cholesterol levels remain slightly elevated, yet with a low risk of cardiovascular events, continuation with lifestyle measures was agreed upon. We reviewed her upcoming mammogram and the potential need for further orthopedic evaluation depending on symptom progression. Her cancer family history guided a discussion on maintaining regular screenings. Consent for these management strategies was confirmed and understood by the patient. Orders: Orders US soft tiss head and/or neck 12/07/24 R22.1 - Localized swelling, mass and lump, neck Thyroid Stimulating Hormone 6 Weeks E03.8 - Other specified hypothyroidism, E06.3 - Autoimmune thyroiditis Medications: New levothyroxine 175 mcg PO DAILY 90 days 90 tabs 0RF Patient Instructions: - Increase levothyroxine to 175 mcg daily and report for re-evaluation in 8 weeks - Follow up on mammogram appointment and maintain regular cancer screenings - Continue current lifestyle measures to manage cholesterol levels - Monitor for any new or worsening symptoms related to previous surgeries and report if necessary - Keep hydrated and compliant with current medications
[2024-12-07 17:02] VITALS: BP 122/84; BMI 37.1
--- OUTSIDE RECORDS SUMMARY | 2024-12-07 17:37 | XMS_ITS | Clinical Summary ---
Author Organization [employer] Address [address] [place] [address] Care Team Providers Care Farmworker Vegetable Name Role Phone Unavailable Primary Care Provider [...] patient's age to complete this topic Insurance [place], [place] [facility] ONE CARE < 65 * Guarantor: Jr Parekh Account Type Relation to Patient Date of Phone Billing Address Personal/Family Self [place], [place]
== END 2024-12-07 17:25 | disposition home or self-care (01) ==
LOC: HO.HMCH 16:55
PROVIDERS: PCP Internal Medicine; Visit Provider Internal Medicine
DX: Z00.00 Encounter for general adult medical examination without abnormal findings (principal); R22.1 Localized swelling, mass and lump, neck; F33.1 Major depressive disorder, recurrent, moderate

== ENCOUNTER → 2024-12-12 06:27 | Outpatient (BNV) | payer OTHER, SELFPAY | PROVIDERS: PCP Internal Medicine; Visit Provider Physician Assistant | DX: Z96.642 Presence of left artificial hip joint (principal) | CPT/HCPCS: 27130; 99024 ==

== ENCOUNTER → 2024-12-12 06:27 | Outpatient (BNV) | payer OTHER, SELFPAY | PROVIDERS: PCP Internal Medicine; Visit Provider Internal Medicine | DX: E66.9 Obesity, unspecified (principal); M16.12 Unilateral primary osteoarthritis, left hip | CPT/HCPCS: 99221; 99499 ==

== ENCOUNTER → 2024-12-12 10:29 | Outpatient (BNV) | payer OTHER, SELFPAY | PROVIDERS: PCP Internal Medicine; Visit Provider Radiology Diagnostic Radiology | DX: Z96.642 Presence of left artificial hip joint (principal) | CPT/HCPCS: 72170 ==

== ENCOUNTER 2024-12-14 10:00 | Inpatient (IN) | payer OTHER, SELFPAY ==
--- OUTSIDE RECORDS SUMMARY | 2024-10-18 09:09 | XMS_ITS | Clinical Summary ---
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
[2024-11-14 10:05] VITALS: BP 103/55; PULSE 74; RESP 20; O2SAT 97; BMI 37.8
--- NOTE | 2024-11-14 10:21 | P.CONAN_ITS ---
HPI - Anesthesia Eval Consult details Narrative: 63yo F for Right Hip Total Replacement, 12/12/24 No recent illness No CP/SOB with minimal activity d/t hip pain MARLENY: Can't tolerate CPAP GERD: ppi controls Rare bronchitis with albuterol PMFSH Active Problems Active Problems: All Active Problems Pre-op evaluation (Acute) Left hip pain (Acute) Bilateral primary osteoarthritis of hip (Acute) Bilateral hip pain (Acute) Muscle spasm of back (Acute) Left elbow pain (Acute) Gastritis (Acute) Hemorrhoids (Acute) Diverticulosis (Acute) Ingrown toenail (Acute) Lumbar pain (Acute) Physical exam (Acute) Poor historian (Acute) Superficial burn (Acute) Wound (Acute) Upper respiratory tract infection (Acute) Moderate recurrent major depression (Acute) Chronic constipation (Acute) Encounter for screening colonoscopy (Acute) Low TSH level (Acute) Failed back syndrome (Acute) Spondylosis of lumbosacral spine with radiculopathy (Acute) Umbilical hernia (Acute) MARLENY (obstructive sleep apnea) (Acute) Hypothyroid (Acute) Leucopenia (Chronic) Tracheobronchitis (Acute) Hx of colonoscopy (Acute ~02/11/23) Anemia (Acute) Hypothyroid (Acute) GERD (gastroesophageal reflux disease) (Acute) Hematuria (Acute) Lumbar degenerative disc disease (Acute) History of small bowel obstruction (Acute) Obesity (BMI 30-39.9) (Acute) Liver cyst (Acute) BMI 34.0-34.9,adult (Acute) Neck pain (Acute) Past Medical History Medical History Diverticulosis Mild major depression Right femoral fracture Neck pain BMI 34.0-34.9,adult Leukopenia Sleep apnea Liver cyst Obesity (BMI 30-39.9) History of small bowel obstruction Lumbar degenerative disc disease Hematuria Migraines IBS (irritable bowel syndrome) Anemia Arthritis Hypothyroid GERD (gastroesophageal reflux disease) Family History Family History Father FH: prostate cancer Mother Breast cancer Bladder cancer Family history of problems with anesthesia: No Surgical History Surgical History History of surgical removal of skin lesion History of ankle surgery History of surgery History of hand surgery Hx of foot surgery History of esophagogastroduodenoscopy (EGD) History of surgery H/O hernia repair History of endometrial ablation H/O tubal ligation History of delivery History of bladder surgery Hx of colonoscopy (~02/11/23) History of back surgery H/O: hysterectomy History of bilateral knee replacement History of Problems with Anesthesia: No Social History Social History Household Members: None Housing: Apartment Are you a primary care connector to a significant other at home: No 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 have visiting nurse or other home services: Yes Alcohol intake: never Comment: medicated, see MAR Patient Tobacco Use Status: Former Tobacco user Tobacco use type: Cigarette Years Smoked: 24 e-Cigarette/Vaping Use: Never Used Second Hand Smoke Exposure: No Use of substances other than those prescribed or required for medical reasons: Yes Substance Use Type: Methamphetamine Substance Use Type Other:: edibles/smoking-advised to hold 3-5 days pre-op Substance Use Frequency: Occasionally Last Used Substance: Weeks (ago) Currently Displaying Signs/Symptoms of Drug Intoxication Withdrawal: No Any prior treatment program specific to substance use: No Have you been hit, kicked, punched, or otherwise hurt by someone within the past year? If so, by whom?: No Do you feel safe in your current relationship?: No Current Relationship Is there a partner from a previous relationship who is making you feel unsafe now?: No Are you made to feel afraid or neglected: No Spiritual Healthcare Practices: none Hoahaoism Healthcare Practices: none Cultural Healthcare Practices: none Are you DNR?: No Advance Directives: No (states son is primary contact) Advance Directives Information Provided: Yes (as above noted) Advance Directives on File: No Do you have a plan to hurt others: No Plan Recently lost weight without trying: No Eating poorly because of decreased appetite: No Nutrition Risks: No Nutritional Risk Patient : No FDLMP: n/a : No Poor oral hygiene: No service: No Current occupational status: unemployed and disabled Cognitive needs: Yes Hearing needs: No Vision needs: Yes Meds Allergies Allergy/AdvReac Type Severity Reaction Status Date / Time amoxicillin [Augmentin] Allergy Intermediate rash Verified 12/12/24 07:38 cat dander Allergy Intermediate Nasal Verified 12/12/24 07:38 congestion clavulanic acid [Augmentin] Allergy Intermediate rash Verified 12/12/24 07:38 trazodone [TRAZODONE] Allergy Intermediate Shortness Verified 12/12/24 07:38 of Breath Home Medications ?Medication ?Instructions ?Recorded ?Confirmed ?Last Taken ?Type glucosamine HCl 500 mg tablet 500 mg PO QA 10/01/20 12/07/24 06/25/23 05:00 History multivitamin 1 tab PO QAM 10/01/20 12/07/24 06/25/23 05:00 History clonazepam 0.5 mg tablet 0.5 mg PO BID PRN Anxiety 04/04/21 12/07/24 01/27/22 History melatonin 5 mg tablet 5 mg PO BEDTIME 04/04/21 12/07/24 01/27/22 History ascorbic acid (vitamin C) 100 mg 100 mg PO [facility] 01/28/22 12/07/24 06/25/23 05:00 History tablet quetiapine 300 mg tablet 600 mg PO BEDTIME 08/05/23 12/07/24 Unknown History venlafaxine 150 mg 150 mg PO [facility] 08/05/23 12/07/24 Unknown History capsule,extended release 24 hr venlafaxine 75 mg capsule,extended 75 mg PO QA 08/05/23 12/07/24 Unknown History release 24 hr meloxicam 15 mg tablet 15 mg PO [facility] 12/13/23 12/07/24 Unknown History epinephrine 0.3 mg/0.3 mL 0.3 mg IM ONCE PRN anaphylaxis 03/27/24 12/07/24 Unknown History injection, auto-injector fluticasone propionate 50 1 spray intranasal DAILY PRN 03/27/24 12/07/24 Unknown History mcg/actuation nasal Allergy Symptoms spray,suspension calcium carbonate 600 mg PO QAM 10/18/24 12/07/24 Unknown History cholecalciferol (vitamin D3) 125 125 mcg PO QAM 10/18/24 12/07/24 Unknown History mcg (5,000 unit) capsule loratadine 10 mg tablet (Allergy 10 mg PO QAM 11/14/24 12/07/24 Unknown History Relief (loratadine)) pantoprazole 40 mg tablet,delayed 40 mg PO QA 11/14/24 12/07/24 12/12/24 05:30 History release polyethylene glycol 3350 17 gram 17 g PO QA 11/14/24 12/07/24 Unknown History oral powder packet (Miralax) valacyclovir 1 gram tablet 1,000 mg PO QAM 11/14/24 12/07/24 Unknown History levothyroxine 175 mcg tablet 175 mcg PO DAILY@0630 12/12/24 12/12/24 Unknown History Exam Height,Weight and Vital Signs: Height 5 ft 6 in Weight 106.141 kg Last Vital Signs Pulse 74 11/14/24 10:05 Resp 20 11/14/24 10:05 BP 103/55 L 11/14/24 10:05 Pulse Ox 97 11/14/24 10:05 O2 Del Method Room Air 11/14/24 10:05 Pertinent Lab Results Pertinent Lab Results: Lab Results 11/14/24 12/07/24 Range/Units 10:20 14:16 Nasal Screen MRSA (PCR) NEGATIVE (Negative) Nasal S. aureus Screen NEGATIVE (Negative) Nasal MRSA/S.aureus Interp SEE NOTE Blood Type A Negative Antibody Screen NEGATIVE Laboratory Tests 11/14/24 10:58 WBC 3.9 L Hgb 12.1 Hct 36.1 L Plt Count 184 Sodium 141 Potassium 4.2 Chloride 107 Carbon Dioxide 26 BUN 20 H Creatinine 0.72 Narrative Narrative: EKG 11/2024 Vent. Rate : 69 BPM Atrial Rate : 69 BPM P-R Int : 186 ms QRS Dur : 88 ms QT Int : 398 ms P-R-T Axes : 74 62 72 degrees QTcB Int : 426 ms Normal sinus rhythm Normal ECG When compared with ECG of 28-Jan-2023 17:14, No significant change was found Airway Mallampati Class: II TM Dist: >3cm Neck ROM: Full Denture: Upper and Lower Loose/Missing/Broken Teeth: No (bottom posts for denture implant) Heart: RRR Lungs: CTAB Assessment and Plan Assessment Anesthesia Assessment: Anesthesia Plan Discussed and PAT Visit Final Anesthetic Review Family History of Problems with Anesthesia: No History of Problems with Anesthesia: No
[2024-11-14 12:42] LABS: MRSA Nasal PCR NEGATIVE (Negative); SA Nasal PCR NEGATIVE (Negative)
[2024-12-12] VITALS (17 sets, daily range): BP systolic 99–142; BP diastolic 52–79; PULSE 69–91; RESP 16–20; TEMP 36.1–37.1; O2SAT 98–100; BMI 39.1
--- NOTE | 2024-12-12 07:27 | MHC.SHP ---
Pre-Procedural Eval Section A - 24 Hr Update-Section A only Date of Service: 12/12/24 The patient is an INPATIENT: No Changes since office visit: No Cold of Flu in the past 2 weeks, No New Medical Problems, No Changes in Medication and No Patient answered all questions The patient has been examined within 24 hours of the surgical procedure. The History & Physical has been completed within 30 days and I have reviewed it.: Yes Section B - Complete if H&P > 30 days Chief Complaint: Bilateral primary osteoarthritis of hip,pain Allergies: Allergies Allergy/AdvReac Type Severity Reaction Status Date / Time amoxicillin [Augmentin] Allergy Intermediate rash Verified 12/07/24 17:10 cat dander Allergy Intermediate Nasal Verified 12/07/24 17:10 congestion clavulanic acid [Augmentin] Allergy Intermediate rash Verified 12/07/24 17:10 trazodone [TRAZODONE] Allergy Intermediate Shortness Verified 12/07/24 17:10 of Breath Plan I have reviewed the history and physical and performed a pertinent physical examination on my patient. No changes have occurred unless specified. Time Spent With Patient Time: Total time managing care of this patient today ____ minutes.
[2024-12-12] MEDS: Acetaminophen 325 MG TABLET PO (07:52)
[2024-12-12] MEDS: oxyCODONE HCl ER 10 MG TAB.ER.12H PO ×2 (07:52→20:50)
--- NOTE | 2024-12-12 07:58 | HO.ANESPROP2 ---
[facility] Active Problems Active Problems: All Active Problems Lump in neck (Acute) Pre-op evaluation (Acute) Left hip pain (Acute) Bilateral primary osteoarthritis of hip (Acute) Bilateral hip pain (Acute) Muscle spasm of back (Acute) Left elbow pain (Acute) Gastritis (Acute) Hemorrhoids (Acute) Diverticulosis (Acute) Ingrown toenail (Acute) Lumbar pain (Acute) Physical exam (Acute) Poor historian (Acute) Superficial burn (Acute) Wound (Acute) Upper respiratory tract infection (Acute) Moderate recurrent major depression (Acute) Chronic constipation (Acute) Encounter for screening colonoscopy (Acute) Low TSH level (Acute) Failed back syndrome (Acute) Spondylosis of lumbosacral spine with radiculopathy (Acute) Umbilical hernia (Acute) MARLENY (obstructive sleep apnea) (Acute) Hypothyroid (Acute) Leucopenia (Chronic) Tracheobronchitis (Acute) Hx of colonoscopy (Acute ~02/11/23) Anemia (Acute) Hypothyroid (Acute) GERD (gastroesophageal reflux disease) (Acute) Hematuria (Acute) Lumbar degenerative disc disease (Acute) History of small bowel obstruction (Acute) Obesity (BMI 30-39.9) (Acute) Liver cyst (Acute) BMI 34.0-34.9,adult (Acute) Neck pain (Acute) Past Medical History Medical History Diverticulosis Mild major depression Right femoral fracture Neck pain BMI 34.0-34.9,adult Leukopenia Sleep apnea Liver cyst Obesity (BMI 30-39.9) History of small bowel obstruction Lumbar degenerative disc disease Hematuria Migraines IBS (irritable bowel syndrome) Anemia Arthritis Hypothyroid GERD (gastroesophageal reflux disease) Family History Family History Father FH: prostate cancer Mother Breast cancer Bladder cancer Family history of problems with anesthesia: No Surgical History Surgical History History of surgical removal of skin lesion History of ankle surgery History of surgery History of hand surgery Hx of foot surgery History of esophagogastroduodenoscopy (EGD) History of surgery H/O hernia repair History of endometrial ablation H/O tubal ligation History of delivery History of bladder surgery Hx of colonoscopy (~02/11/23) History of back surgery H/O: hysterectomy History of bilateral knee replacement History of Problems with Anesthesia: No Social History Social History Household Members: None Housing: House Are you a primary adult daycare coordinator to a significant other at home: No 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) Alcohol intake: never Comment: medicated, see MAR Patient Tobacco Use Status: Former Tobacco user Tobacco use type: Cigarette Years Smoked: 24 e-Cigarette/Vaping Use: Never Used Second Hand Smoke Exposure: No Use of substances other than those prescribed or required for medical reasons: Yes Substance Use Type Other:: edibles/smoking-advised to hold 3-5 days pre-op Substance Use Frequency: Daily Have you been hit, kicked, punched, or otherwise hurt by someone within the past year? If so, by whom?: No Spiritual Healthcare Practices: none Confucianism Healthcare Practices: none Cultural Healthcare Practices: none Are you DNR?: No Advance Directives: No (states son is primary contact) Advance Directives Information Provided: Yes (as above noted) Advance Directives on File: No FDLMP: n/a Poor oral hygiene: No service: No Current occupational status: unemployed and disabled Cognitive needs: Yes Hearing needs: No Vision needs: Yes Meds Allergies Allergy/AdvReac Type Severity Reaction Status Date / Time amoxicillin [Augmentin] Allergy Intermediate rash Verified 12/12/24 07:38 cat dander Allergy Intermediate Nasal Verified 12/12/24 07:38 congestion clavulanic acid [Augmentin] Allergy Intermediate rash Verified 12/12/24 07:38 trazodone [TRAZODONE] Allergy Intermediate Shortness Verified 12/12/24 07:38 of Breath Active Medications: Current Medications Albuterol Sulfate (Albuterol Sulfate (0.083%) 2.5 Mg/3 Ml Vial.Neb) 2.5 mg INHALE ONCE PRN PRN Reason: Shortness of Breath/Wheezing Lactated Ringer's (Lr) 1,000 mls @ 100 mls/hr IVCONT .Q10H ESE Home Medications ?Medication ?Instructions ?Recorded ?Confirmed ?Last Taken ?Type glucosamine HCl 500 mg tablet 500 mg PO QAM 10/01/20 12/07/24 06/25/23 05:00 History multivitamin 1 tab PO QAM 10/01/20 12/07/24 06/25/23 05:00 History clonazepam 0.5 mg tablet 0.5 mg PO BID PRN Anxiety 04/04/21 12/07/24 01/27/22 History melatonin 5 mg tablet 5 mg PO BEDTIME 04/04/21 12/07/24 01/27/22 History ascorbic acid (vitamin C) 100 mg 100 mg PO QAM 01/28/22 12/07/24 06/25/23 05:00 History tablet quetiapine 300 mg tablet 600 mg PO BEDTIME 08/05/23 12/07/24 Unknown History venlafaxine 150 mg 150 mg PO QAM 08/05/23 12/07/24 Unknown History capsule,extended release 24 hr venlafaxine 75 mg capsule,extended 75 mg PO QAM 08/05/23 12/07/24 Unknown History release 24 hr meloxicam 15 mg tablet 15 mg PO QAM 12/13/23 12/07/24 Unknown History epinephrine 0.3 mg/0.3 mL 0.3 mg IM ONCE PRN anaphylaxis 03/27/24 12/07/24 Unknown History injection, auto-injector fluticasone propionate 50 1 spray intranasal DAILY PRN 03/27/24 12/07/24 Unknown History mcg/actuation nasal Allergy Symptoms spray,suspension calcium carbonate 600 mg PO QAM 10/18/24 12/07/24 Unknown History cholecalciferol (vitamin D3) 125 125 mcg PO QAM 10/18/24 12/07/24 Unknown History mcg (5,000 unit) capsule loratadine 10 mg tablet (Allergy 10 mg PO QAM 11/14/24 12/07/24 Unknown History Relief (loratadine)) pantoprazole 40 mg tablet,delayed 40 mg PO QAM 11/14/24 12/07/24 12/12/24 05:30 History release polyethylene glycol 3350 17 gram 17 g PO QAM 11/14/24 12/07/24 Unknown History oral powder packet (Miralax) tramadol 50 mg tablet 100 mg PO TID 11/14/24 12/07/24 12/12/24 05:30 History valacyclovir 1 gram tablet 1,000 mg PO QAM 11/14/24 12/07/24 Unknown History Exam Height,Weight and Vital Signs: Height 5 ft 6 in Weight 106.141 kg Last Vital Signs Pulse 74 11/14/24 10:05 Resp 20 11/14/24 10:05 BP 103/55 L 11/14/24 10:05 Pulse Ox 97 11/14/24 10:05 O2 Del Method Room Air 11/14/24 10:05 Pertinent Lab Results Pertinent Lab Results: Laboratory Tests 11/14/24 12/07/24 10:20 14:16 Nasal Screen MRSA (PCR) NEGATIVE Nasal S. aureus Screen NEGATIVE Nasal MRSA/S.aureus Interp SEE NOTE Blood Type A Negative Antibody Screen NEGATIVE Airway Mallampati Class: II TM Dist: >3cm Neck ROM: Full Denture: Upper and Lower Loose/Missing/Broken Teeth: No Heart: s1s2, no murmur Lungs: CTA, BS=BL Assessment and Plan Final Anesthetic Review Family History of Problems with Anesthesia: No History of Problems with Anesthesia: No NPO: Yes ASA Class: III Final Preanesthetic Review: No Changes in Pt Med Stat, Meds/Allgs Chart Reviewed, Consent Obtained/Reviewed and Anes Risks/Benef Reviewed Patient Risk: Intermediate Procedure Risk: Intermediate Anesthetic Plan Anesthetic Plan: GA Disposition: Standard PACU
[2024-12-12] MEDS: Lactated Ringers 1,000 ML 100 ML IVCONT ×3 (08:07→22:57)
[2024-12-12] MEDS: ceFAZolin Sodium/Dextrose,Iso 2 GM/50 ML PIGGYBACK IV ×2 (08:37→14:56)
[2024-12-12] MEDS: HYDROmorphone HCl 0.5 MG/0.5 ML SYRINGE 0.25 MG IVPUSH ×7 (10:45→19:40)
[2024-12-12] MEDS: ondansetron HCL 4 MG/2 ML VIAL IVPUSH (10:50)
--- NOTE | 2024-12-12 11:16 | P.DS_ITS ---
DS: Providers Provider Primary care physician: Brianda Grant MD Consults: 12/12/24 10:40 Consult to Hospitalist Routine Comment: Consulting Provider: [facility] Reason For Exam: medical management DS: Summary Hospital Course Hospital Course: The patient underwent a successful left total hip arthroplasty, they were transferred to PACU and then to the floor to recover. During their stay, their vitals were stable, afebrile at ( ). Labs were unremarkable, H/H ( ). POD 1 they were started on Aspirin 325mg po bid for DVT ppx, they also received Physical Therapy services twice a day. Prior to discharge, their dressing was clean dry and intact, and the plan was to be discharged home with VNA services. Time Attestation Discharge Coordination Time (in mins): 30 Quality: Safe Use of Opioids Does Pt have an Active Cancer Diagnosis on the Problem List?: No Quality: Stroke Does the patient have a stroke diagnosis?: No Physical Exam Vital Signs: Vital Signs: Last Vital Signs Temp 97 F 12/12/24 10:32 Pulse 90 12/12/24 11:00 Resp 16 12/12/24 11:00 BP 118/56 L 12/12/24 11:00 Pulse Ox 100 12/12/24 11:00 O2 Del Method Room Air 12/12/24 11:00 BMI result Body Mass Index 37.8 Const: General: cooperative, healthy appearing and no acute distress Resp: Effort & Inspection: normal respiratory effort and able to speak in complete sentences Cardio: Rate: regular rate Peripheral pulses: Peripheral pulses 2+ throughout GI: Palpation (GI): Soft to palpation Skin: Lesions: no lesions Rashes: no rashes Extrem: Other: left hip dressing is c/d/i. Able to dorsi/plantar flex. Calf is supple and nontender. Sensation intact. Pedal pulse intact. DS: Data Data Completed and Pending Completed studies during hospitalization [Text1]: Procedures Insertion of Internal Fixation Device into Right Lower Femur, Open Approach (01/28/22) Removal of Liner from Right Knee Joint, Open Approach (01/28/22) Reposition Left Fibula with Internal Fixation Device, Percutaneous Approach (01/28/22) Reposition Left Tibia with Internal Fixation Device, Percutaneous Approach (01/28/22) Reposition Left Tibia, External Approach (01/28/22) Supplement Right Knee Joint with Liner, Open Approach (01/28/22) Transfusion of Nonautologous Red Blood Cells into Peripheral Vein, Percutaneous Approach (01/28/22) Pending studies at discharge: Pending at discharge 12/12/24 09:36 Surgical [PTH] Routine Discharge Plan Discharge Patient Disposition: Home, Self-Care Referrals: Idania Carey PA-C [Physician Load Dropper] - 2 Weeks (12/28/24 12:45 [facility] Orthopedic Surgeons Idania Carey PA-C) Discharge Medications: No Action (DME) Shoe lift See Rx Instructions .Route .MEDSUPPLY Qty: 1 0RF Rx Instructions: As directed (DME) hand held showerhead See Rx Instructions .Route .MEDSUPPLY Qty: 1 0RF Rx Instructions: As directed (DME) Ultra[facility] See Rx Instructions .Route Qty: 1 0RF Rx Instructions: As directed (DME) Grab bar Misc See Rx Instructions .Route Qty: 1 0RF Rx Instructions: As directed (DME) toilet seat elevator See Rx Instructions .Route .MEDSUPPLY Qty: 1 0RF Rx Instructions: As directed gabapentin 800 mg tablet 800 mg PO TID 90 Days Qty: 270 1RF docusate sodium [Colace] 100 mg capsule 200 mg PO BEDTIME 30 Days Qty: 60 5RF Citrucel 500 mg tablet 500 mg PO BID Qty: 60 5RF acetaminophen 500 mg tablet 1,000 mg PO Q6H PRN (Reason: pain) 30 Days Qty: 240 8RF hydrocortisone [Proctosol HC] 2.5 % cream with perineal applicator 1 appl [place] BEDTIME PRN (Reason: hemorrhoids) Qty: 30 3RF (DME) walker [facility] See Rx Instructions .MEDSUPPLY Qty: 1 0RF Rx Instructions: Folding Front wheeled walker duration 99 days (DME) 4 wheel walker with seat See Rx Instructions .Route .MEDSUPPLY Qty: 1 0RF Rx Instructions: As directed albuterol sulfate [Ventolin HFA] 90 mcg/actuation HFA aerosol inhaler 2 puff inhalation Q6H PRN (Reason: shortness of breath or wheezing) 30 Days Qty: 6.7 2RF ascorbic acid (vitamin C) 100 mg Tablet 100 mg PO QAM polyethylene glycol 3350 [Miralax] 17 gram powder in packet 17 g PO QAM valacyclovir 1 gram tablet 1,000 mg PO QAM tramadol 50 mg tablet 100 mg PO TID pantoprazole 40 mg tablet,delayed release (DR/EC) 40 mg PO QAM loratadine [Allergy Relief (loratadine)] 10 mg tablet 10 mg PO QAM epinephrine 0.3 mg/0.3 mL auto-injector 0.3 mg IM ONCE PRN (Reason: anaphylaxis) fluticasone propionate 50 mcg/actuation spray,suspension 1 spray intranasal DAILY PRN (Reason: Allergy Symptoms) venlafaxine 150 mg capsule,extended release 24hr 150 mg PO QAM venlafaxine 75 mg capsule,extended release 24hr 75 mg PO QAM quetiapine 300 mg tablet 600 mg PO BEDTIME multivitamin Tablet 1 tab PO QAM glucosamine HCl 500 mg tablet 500 mg PO QAM Rx Instructions: administer with a meal clonazepam 0.5 mg tablet 0.5 mg PO BID PRN (Reason: Anxiety) melatonin 5 mg tablet 5 mg PO BEDTIME meloxicam 15 mg tablet 15 mg PO QAM levothyroxine 175 mcg tablet 175 mcg PO DAILY 90 Days Qty: 90 0RF cholecalciferol (vitamin D3) 125 mcg (5,000 unit) capsule 125 mcg PO QAM calcium carbonate 600 mg calcium (1,500 mg) tablet 600 mg PO QAM Diet: Regular diet Activity on Discharge: Use cane or walker Activity Restrictions/Additional Instructions: * Physical Therapy for Total hip arthroplasty: wbat, posterior precautions, gait training, ROM, strength * Limit stair climbing * No showering, no tub bath-keep dressing clean, dry and intact * No driving x6 weeks * Continue lovenox once a day x 6 weeks * Follow up with [facility]opedics in 2 weeks: * --you will also have your first out patient PT samuel on the day of your post op appt-so please plan on being in the office that day for an extended period of time. Print Language: Slovenian
--- NOTE | 2024-12-12 11:18 | P.F2F_ITS ---
Service Date Service Date: 12/12/24 Encounter Date of encounter: 12/13/24 Reasons for Services Signs and symptoms assessed: s/p LTHA Pt. is considered homebound due to recent surgery. Unable to drive, poor balance, poor gait mechanics. Reason for physical therapy: home safety and mobility, therapeutic exercises, restore joint function, gait/transfer training and ADL training Reason for occupational therapy: home safety and mobility, therapeutic exercises, restore joint function, gait/transfer training and ADL training Homebound: Leaving the home is medically contraindicated at this time without the asist of a device and/or another person due th the listed conditions above and below. Reason homebound: unsteady gait / fall risk, leg weakness, pain with ambulation, poor balance / fall risk and unable to drive Certification: Based on the above findings, I certify that this patient is confined to the home and needs intermittent detention care, physical therapy and/or speech therapy, or continues to need occupational therapy. The patient is under my care, and I have initiated the establishment of the plan of care. The patient will be followed by a physician who will periodically review the plan of care. Time Spent With Patient Time: Total time managing care of this patient today ____ minutes.
--- NOTE | 2024-12-12 11:21 | P.BOP_ITS ---
Brief Operative Note Date of Service: 12/12/24 Pre-op diagnosis: left hip OA Post-op diagnosis: same Procedure: Left NAYA Implants: [place] Trident 2 54 with 2 6.5 acetabular screws and 20 deg lip liner; Accoalade2 #[id number] with +2.5 36 Ceramic femoral head Surgeon: Sinan Gibbs MD Anesthesia: GETA Was an Senior Technical Support Analyst used for this Procedure?: Yes Senior Technical Support Analyst: Idania Carey Estimated blood loss (mL): 200 IV fluids (mL): 1,000 Pathology: other Condition: stable Disposition: PACU
[2024-12-12 13:32] LABS: Creatinine Clr Calc Pharmacy 111.5; Estimated Glomerular Filt Rate > 60
--- NOTE | 2024-12-12 13:46 | PHA.MEDREC ---
Pharmacy Consult ? Medication Reconciliation RN has completed the medication reconciliation, pharmacy reviewed.
[2024-12-12] MEDS: polyethylene glycoL 3350 17 GM POWD.PACK PO (13:49)
[2024-12-12] MEDS: oxyCODONE HCl Immed Release 5 MG TABLET PO ×2 (13:49→22:27)
--- NOTE | 2024-12-12 14:00 | P.CONIM_ITS ---
History of Present Illness Data of Consult Service Date: 12/12/24 Primary Care Provider: Brianda Grant MD HPI Reason for consult: hypothyroid 64F PMH hypothyroid, osteoarthritis, mood disorder, admitted status post elective left total hip arthroplasty. Patient is doing well postoperatively be denies any pain, shortness breath, chest pain. Had recent dose adjustment on levothyroxine due to elevated TSH, reports stable mood. Review of Systems 2 Review of Systems: Yes all other systems are reviewed and are negative FOR[facility]LY [facility] Medical History Diverticulosis Mild major depression Right femoral fracture Neck pain BMI 34.0-34.9,adult Leukopenia Sleep apnea Liver cyst Obesity (BMI 30-39.9) History of small bowel obstruction Lumbar degenerative disc disease Hematuria Migraines IBS (irritable bowel syndrome) Anemia Arthritis Hypothyroid GERD (gastroesophageal reflux disease) Family History Father FH: prostate cancer Mother Breast cancer Bladder cancer Surgical History History of surgical removal of skin lesion History of ankle surgery History of surgery History of hand surgery Hx of foot surgery History of esophagogastroduodenoscopy (EGD) History of surgery H/O hernia repair History of endometrial ablation H/O tubal ligation History of delivery History of bladder surgery Hx of colonoscopy (~02/11/23) History of back surgery H/O: hysterectomy History of bilateral knee replacement Social History Household Members: None Housing: Apartment Are you a primary care trainer to a significant other at home: No 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 have visiting nurse or other home services: Yes Alcohol intake: never Comment: medicated, see MAR Patient Tobacco Use Status: Former Tobacco user Tobacco use type: Cigarette Years Smoked: 24 e-Cigarette/Vaping Use: Never Used Second Hand Smoke Exposure: No Use of substances other than those prescribed or required for medical reasons: Yes Substance Use Type: Methamphetamine Substance Use Type Other:: edibles/smoking-advised to hold 3-5 days pre-op Substance Use Frequency: Occasionally Last Used Substance: Weeks (ago) Currently Displaying Signs/Symptoms of Drug Intoxication Withdrawal: No Any prior treatment program specific to substance use: No Have you been hit, kicked, punched, or otherwise hurt by someone within the past year? If so, by whom?: No Do you feel safe in your current relationship?: No Current Relationship Is there a partner from a previous relationship who is making you feel unsafe now?: No Are you made to feel afraid or neglected: No Spiritual Healthcare Practices: none Confucianism Healthcare Practices: none Cultural Healthcare Practices: none Are you DNR?: No Advance Directives: No (states son is primary contact) Advance Directives Information Provided: Yes (as above noted) Advance Directives on File: No Do you have a plan to hurt others: No Plan Recently lost weight without trying: No Eating poorly because of decreased appetite: No Nutrition Risks: No Nutritional Risk Patient : No FDLMP: n/a : No Poor oral hygiene: No service: No Current occupational status: unemployed and disabled Cognitive needs: Yes Hearing needs: No Vision needs: Yes Meds Allergies Allergy/AdvReac Type Severity Reaction Status Date / Time amoxicillin [Augmentin] Allergy Intermediate rash Verified 12/12/24 07:38 cat dander Allergy Intermediate Nasal Verified 12/12/24 07:38 congestion clavulanic acid [Augmentin] Allergy Intermediate rash Verified 12/12/24 07:38 trazodone [TRAZODONE] Allergy Intermediate Shortness Verified 12/12/24 07:38 of Breath Active Medications: Current Medications Acetaminophen (Acetaminophen 325 Mg Tablet) 650 mg PO Q6H PRN PRN Reason: Pain, Mild 1-3,fever,headache Albuterol Sulfate (Albuterol Sulfate 90 Mcg 8 Gm Inhaler) 2 puff INHALE Q6H PRN PRN Reason: shortness of breath or wheezing Celecoxib (Celecoxib 200 Mg Capsule) 200 mg PO BID ESE Clonazepam (Clonazepam 0.5 Mg Tablet) 0.5 mg PO BID PRN PRN Reason: Anxiety Docusate Sodium (Docusate Sodium 100 Mg Capsule) 100 mg PO BID ESE Droperidol (Droperidol 5 Mg/2 Ml Vial) 0.625 mg IVPUSH ONCE PRN PRN Reason: intractable nausea Stop: 12/12/24 17:14 Enoxaparin Sodium (Enoxaparin Sodium 40 Mg/0.4 Ml Syringe) 40 mg SUBCUT Q24H ESE Epinephrine (Epinephrine 1 Mg/Ml Vial) 0.3 mg IM ONCE PRN PRN Reason: anaphylaxis Fluticasone Propionate (Fluticasone Propionate Nasal 16 Gm Celeste) 1 spray NOSTRIL-B DAILY PRN PRN Reason: Allergy Symptoms Gabapentin (Gabapentin 400 Mg Capsule) 800 mg PO TID [facility] Hydrocortisone (Hydrocortisone 2.5 % Rectal Cr 30 Gm Tube) 1 appl ND BEDTIME PRN PRN Reason: hemorrhoids Hydromorphone HCl (Hydromorphone Hcl 0.5 Mg/0.5 Ml Syringe) 0.25 mg IVPUSH Q4H PRN; Protocol PRN Reason: Pain, Severe (Pain Scale 7-10) Last Admin: 12/12/24 10:50 Dose: 0.25 mg Hydromorphone HCl (Hydromorphone Hcl 0.5 Mg/0.5 Ml Syringe) 0.25 mg IVPUSH Q5M PRN PRN Reason: Pain, Moderate to Severe (Pain Scale 4-10) Stop: 12/12/24 17:14 Last Admin: 12/12/24 12:00 Dose: 0.25 mg Lactated Ringer's (Lr) 1,000 mls @ 100 mls/hr IVCONT .Q10H [facility] Stop: 12/13/24 08:00 Last Admin: 12/12/24 12:55 Dose: 100 mls/hr Cefazolin Sodium/Dextrose (Ancef) 2 gm in 50 mls @ 100 mls/hr IV POSTOP@1500 ONE Stop: 12/12/24 15:29 Levothyroxine Sodium (Levothyroxine Sodium 175 Mcg Tablet) 175 mcg PO DAILY@629 [facility] Loratadine (Loratadine 10 Mg Tablet) 10 mg PO DAILY [facility] Last Admin: 12/12/24 13:52 Dose: Not Given Melatonin (Melatonin 3 Mg Tablet) 6 mg PO BEDTIME [facility] Naloxone HCl (Naloxone Hcl 0.4 Mg/Ml Vial) 0.04 mg IVPUSH Q5M PRN PRN Reason: Excessive sedation or RR < 8 Omeprazole (Omeprazole 20 Mg Capsule.Dr) 20 mg PO DAILY@629 [facility] Ondansetron HCl (Ondansetron Hcl 4 Mg/2 Ml Vial) 4 mg IVPUSH Q8H PRN PRN Reason: Nausea and Vomiting Oxycodone HCl (Oxycodone Hcl Immed Release 5 Mg Tablet) 5 mg PO Q4H PRN PRN Reason: Pain, Moderate(Pain Scale 4-6) Last Admin: 12/12/24 13:49 Dose: 5 mg Oxycodone HCl (Oxycodone Hcl Er 10 Mg Tab.Er.12h) 10 mg PO BID [facility] Polyethylene Glycol (Polyethylene Glycol 3350 17 Gm Powd.Pack) 17 gm PO DAILY [facility] Last Admin: 12/12/24 13:49 Dose: 17 gm Quetiapine Fumarate (Quetiapine Fumarate 300 Mg Tablet) 600 mg PO BEDTIME [facility] Sodium Chloride (0.9 % Sodium Chloride Flush 3 Ml Syringe) 3 ml IVFLUSH QSHIFT [facility] Valacyclovir HCl (Valacyclovir Hcl 1,000 Mg Tablet) 1,000 mg PO DAILY [facility] Last Admin: 12/12/24 13:53 Dose: Not Given Venlafaxine HCl (Venlafaxine Hcl Er 75 Mg Cap.Er.24h) 75 mg PO DAILY [facility] Last Admin: 12/12/24 13:53 Dose: Not Given Venlafaxine HCl (Venlafaxine Hcl Er 150 Mg Cap.Er.24h) 150 mg PO DAILY [facility] Last Admin: 12/12/24 13:52 Dose: Not Given Home Medications ?Medication ?Instructions ?Recorded ?Confirmed ?Last Taken ?Type glucosamine HCl 500 mg tablet 500 mg PO [facility] 10/01/20 12/07/24 06/25/23 05:00 History multivitamin 1 tab PO [facility] 10/01/20 12/07/24 06/25/23 05:00 History clonazepam 0.5 mg tablet 0.5 mg PO BID PRN Anxiety 04/04/21 12/07/24 01/27/22 History melatonin 5 mg tablet 5 mg PO BEDTIME 04/04/21 12/07/24 01/27/22 History ascorbic acid (vitamin C) 100 mg 100 mg PO QAM 01/28/22 12/07/24 06/25/23 05:00 History tablet quetiapine 300 mg tablet 600 mg PO BEDTIME 08/05/23 12/07/24 Unknown History venlafaxine 150 mg 150 mg PO QAM 08/05/23 12/07/24 Unknown History capsule,extended release 24 hr venlafaxine 75 mg capsule,extended 75 mg PO QAM 08/05/23 12/07/24 Unknown History release 24 hr meloxicam 15 mg tablet 15 mg PO QAM 12/13/23 12/07/24 Unknown History epinephrine 0.3 mg/0.3 mL 0.3 mg IM ONCE PRN anaphylaxis 03/27/24 12/07/24 Unknown History injection, auto-injector fluticasone propionate 50 1 spray intranasal DAILY PRN 03/27/24 12/07/24 Unknown History mcg/actuation nasal Allergy Symptoms spray,suspension calcium carbonate 600 mg PO QAM 10/18/24 12/07/24 Unknown History cholecalciferol (vitamin D3) 125 125 mcg PO QAM 10/18/24 12/07/24 Unknown History mcg (5,000 unit) capsule loratadine 10 mg tablet (Allergy 10 mg PO [facility] 11/14/24 12/07/24 Unknown History Relief (loratadine)) pantoprazole 40 mg tablet,delayed 40 mg PO QA 11/14/24 12/07/24 12/12/24 05:30 History release polyethylene glycol 3350 17 gram 17 g PO [facility] 11/14/24 12/07/24 Unknown History oral powder packet (Miralax) tramadol 50 mg tablet 100 mg PO TID 11/14/24 12/07/24 12/12/24 05:30 History valacyclovir 1 gram tablet 1,000 mg PO [facility] 11/14/24 12/07/24 Unknown History levothyroxine 175 mcg tablet 175 mcg PO DAILY@0630 12/12/24 12/12/24 Unknown History Physical Exam 2 Vital Signs and Narrative: Vital Signs: Last Vital Signs Temp 98.0 F 12/12/24 12:47 Pulse 86 12/12/24 12:47 Resp 16 12/12/24 12:47 BP 104/52 L 12/12/24 12:47 Pulse Ox 99 12/12/24 12:47 O2 Del Method Room Air 12/12/24 12:47 BMI result Body Mass Index 39.1 General: AO X 3, no acute distress Resp: CTA bilateral, no accessory muscles used CVS: S1,S2,RRR GI: soft, non tender, non distended Neuro: motor grossly intact, alert Psych: appropriate affect, appropriate insight Results Labs 12/12/24 13:01 Labs: Laboratory Results - last 24 hr 12/12/24 13:01 Estim Creat Clear Calc 111.5 Estimated GFR > 60 Imaging Radiologist's Impressions: Impressions Pelvis X-Ray 12/12/24 10:29 IMPRESSION: Total left hip arthroplasty without complication. Electronically signed by: Neftali Sosa MD 12/12/2024 11:33 AM EDT Assessment and Plan (1) Obesity (BMI 30-39.9): Status: Acute Plan 64F PMH hypothyroid, osteoarthritis, mood disorder, admitted status post elective left total hip arthroplasty Hypothyroid Continue with levothyroxine, outpatient follow up Mood disorder Continue quetiapine, venlafaxine Patient appears stable will sign off for now please recall if needed
[2024-12-12] MEDS: Gabapentin 400 MG CAPSULE 800 MG PO ×2 (14:55→20:49)
[2024-12-12] MEDS: Melatonin 3 MG TABLET 6 MG PO (20:48)
[2024-12-12] MEDS: QUEtiapine Fumarate 300 MG TABLET 600 MG PO (20:48)
[2024-12-12] MEDS: Celecoxib 200 MG CAPSULE PO (20:49)
[2024-12-12] MEDS: Docusate Sodium 100 MG CAPSULE PO (20:49)
[2024-12-12] MEDS: Morphine Sulfate 4 MG/ML CARTRIDGE IVPUSH (21:22)
[2024-12-12] MEDS: clonazePAM 0.5 MG TABLET PO (22:28)
[2024-12-12] MEDS: Cyclobenzaprine HCl 10 MG TABLET PO (22:55)
[2024-12-13] MEDS: HYDROmorphone HCl 0.5 MG/0.5 ML SYRINGE IVPUSH (00:28)
[2024-12-13 03:33] VITALS: BP 102/58; PULSE 89; RESP 16; TEMP 36.1; O2SAT 96
--- NOTE | 2024-12-13 05:39 | PC.NURSE ---
This RN assumed care at 1900, Pt AOX4, POD 1 Left hip repair, ambulatory with walker to commode, 2X assist d/t severe pain last night, meds given per OCT, per Pt nothing was helping, until 129 when meds final kicked in. Lung sounds clear, respirations even and non-labored, BSx4, Aquacel dsg to left hip, no staining noted at this time: CDI, redness noted to abd fold/breast, pt using vaseline. No apparent distress noted at this time, call gomes within reach. VSS
[2024-12-13] MEDS: Omeprazole 20 MG CAPSULE.DR PO (06:17)
[2024-12-13] MEDS: Levothyroxine Sodium 175 MCG TABLET PO (06:17)
[2024-12-13] MEDS: Loratadine 10 MG TABLET PO (07:15)
[2024-12-13] MEDS: valACYclovir HCL 1,000 MG TABLET 1000 MG PO (07:15)
[2024-12-13] MEDS: polyethylene glycoL 3350 17 GM POWD.PACK PO (07:15)
[2024-12-13] MEDS: Venlafaxine HCl ER 150 MG CAP.ER.24H PO (07:15)
[2024-12-13] MEDS: Gabapentin 400 MG CAPSULE 800 MG PO ×2 (07:15→20:31)
[2024-12-13] MEDS: Docusate Sodium 100 MG CAPSULE PO ×2 (07:15→20:31)
[2024-12-13] MEDS: oxyCODONE HCl Immed Release 5 MG TABLET PO (07:15)
[2024-12-13 07:16] LABS: MANUAL DIFF FLAG NO
[2024-12-13] MEDS: Venlafaxine HCl ER 75 MG CAP.ER.24H PO (07:16)
[2024-12-13] MEDS: oxyCODONE HCl ER 10 MG TAB.ER.12H PO ×2 (07:16→20:31)
[2024-12-13] MEDS: Celecoxib 200 MG CAPSULE PO ×2 (07:16→20:30)
[2024-12-13 07:26] LABS: Basophils Percent Auto 0.2 % (0-2); Eosinophils Percent Auto 0.2 % (0-4); Hematocrit 24.8 % (37.0-47.0); Imm Gran Abs Auto 0.03 X10*3/uL (0.00-0.03); Imm Gran Pct Auto 0.7 % (0.0-0.4); Lymphocytes Absolute Auto 0.9 X10*3/uL (1.2-4.9); Lymphocytes Percent Auto 19.9 % (20-40); Mean Corpuscular HGB Conc 32.3 g/dl (31.0-35.0); Mean Corpuscular Hemoglobin 30.9 pg (27.0-33.0); Mean Corpuscular Volume 95.8 fL (80.0-98.0); Mean Platelet Volume 9.7 fL (9.4-12.3); Monocytes Absolute Auto 0.5 X10*3/uL (0.1-1.2); Monocytes Percent Auto 10.4 % (2-11); Neutrophils Absolute Auto 3.1 x10*3/uL (2.0-8.3); Neutrophils Percent Auto 68.6 % (45-73); Platelet Count 170 X10*3/uL (160-400); Red Blood Count 2.59 X10*6/uL (4.20-5.50); Red Cell Distribution Width 14.3 % (11.0-16.0); White Blood Count 4.5 X10*3/uL (4.8-10.8)
[2024-12-13 07:33] LABS: Anion Gap 12 (12-20); Blood Urea Nitrogen 14 mg/dL (9-16); Calcium 8.3 mg/dL (8.4-10.2); Carbon Dioxide 25 mmol/L (22-29); Chloride 105 mmol/L (96-108); Estimated Glomerular Filt Rate > 60; Glucose Fasting 112 mg/dL (60-99); Potassium 3.6 mmol/L (3.3-5.1); Sodium 138 mmol/L (135-145)
[2024-12-13 07:37] VITALS: BP 107/62; PULSE 91; RESP 18; TEMP 37.4; O2SAT 95
--- NOTE | 2024-12-13 07:57 | PM.PNORT ---
Subjective Subjective Date of Service: 12/13/24 Interval history: POD1 s/p LTHA Patient is resting in bed - Opens her eyes but falls back to sleep during the interview No overnight events Pain is managed No additional complaints Physical Exam Vital Signs: Vital Signs: Last Vital Signs Temp 99.3 F 12/13/24 07:37 Pulse 91 12/13/24 07:37 Resp 18 12/13/24 07:37 BP 107/62 12/13/24 07:37 Pulse Ox 95 12/13/24 07:37 O2 Del Method Room Air 12/13/24 07:37 BMI result Body Mass Index 39.1 Const: General: cooperative, healthy appearing and no acute distress Resp: Effort & Inspection: normal respiratory effort and able to speak in complete sentences Cardio: Rate: regular rate Peripheral pulses: Peripheral pulses 2+ throughout GI: Palpation (GI): Soft to palpation Skin: Lesions: no lesions Rashes: no rashes Extrem: Other: Left hip dressing is c/d/i. Calf is supple and nontender. Sensation intact. Pedal pulse intact. Procedures Date of Service Date of Service: 12/13/24 Progress Note: A&P Assessment and plan (1) Status post total replacement of left hip: Status: Acute Plan Continue pain mgmnt Begin Lovenox for dvt ppx begin PT/OT for LTHA - WBAT posterior precautions Dispo planning-Pending PT eval, pain mgmnt Time Spent With Patient Time: Total time managing care of this patient today ____ minutes. Quality Stroke Does the patient have a stroke diagnosis?: No VTE Prior VTE?: No VTE Risk Level:: Medical - moderate - high VTE Device Contraindication: N/A - Device Ordered VTE Drug Contraindication: N/A - Med Ordered
[2024-12-13] MEDS: Lactated Ringers 1,000 ML 100 ML IVCONT (09:24)
[2024-12-13] MEDS: Enoxaparin Sodium 40 MG/0.4 ML SYRINGE SUBCUT (09:24)
--- NOTE | 2024-12-13 09:47 | HO.POSTANES ---
Post Anesthesia Evaluation Post Anesthesia Evaluation Date of Service: 12/13/24 Vital Signs: Vital Signs Temp Pulse Resp BP Pulse Ox O2 Del Method 12/13/24 07:37 99.3 F 91 18 107/62 95 Room Air 12/13/24 03:33 97.0 F 89 16 102/58 L 96 Room Air 12/12/24 23:31 97.3 F 90 20 119/61 99 Room Air Anesthesia: General Endotracheal-GETA Mental Status: Awake Pain Control: Satisfactory Nausea/Vomiting: None Hydration: Adequate Anesthesia-Related Issues: No Anes. Related Issues
[2024-12-13 10:31] VITALS: BP 90/55; PULSE 92
--- NOTE | 2024-12-13 11:51 | PM.EVENT ---
Event Note Date of Service: 12/13/24 Event Note: Patient lethargic today and hypotensive. Likely due to polypharmacy due to uncontrolled pain overnight. Not sepsis Would hold off on further opiates until patient more awake. Continue IV fluids, monitor blood pressures Time Spent With Patient Time: Total time managing care of this patient today ____ minutes.
--- NOTE | 2024-12-13 13:22 | P.OP_ITS ---
Operative Note Operative Note Date of Service: 12/13/24 Narrative: Date of Service: 12/12/24 Pre-op diagnosis: left hip OA Post-op diagnosis: same Procedure: Left NAYA Implants: [place] Trident 2 54 with 2 6.5 acetabular screws and 20 deg lip liner; Accoalade2 #5 132 with +2.5 36 Ceramic femoral head Surgeon: Sinan Gibbs MD Anesthesia: GETA Was an Field Automobile Adjuster used for this Procedure?: Yes Field Automobile Adjuster: Idania Carey Estimated blood loss (mL): 200 IV fluids (mL): 1,000 Pathology: other Condition: stable Disposition: PACU Procedure in detail: Patient was brought into the operating room and placed in the right lateral decubitus position. All bony prominences were well padded and the limb was prepped and draped in standard sterile fashion. A time-out was called to identify proper site procedure proper surgeon IV antibiotics and 1 g of tranexamic acid were administered. I began by making a curvilinear incision over the posterolateral aspect of the greater trochanter. Dissection was taken down to the tensor fascia which was incised in line with the incision and a Charnley retractor was placed. Cautery was used to maintain hemostasis. The hip was internally rotated and the external rotators were identified. The vessels were cauterized and a full-thickness capsular/external rotator layer was developed starting just proximal to the piriformis. This layer was tagged and a dull Hohmann retractor was placed underneath the neck in the hip was partially dislocated. There were extensive osteophytes and the acetabulum was deep. A neck cut was made 1 cm proximal to the lesser trochanter and the head and neck were removed and measured ~50 mm on the back table. The head was deformed and eburnated. II used an osteotome to remove about 5-7 mm of acetabular rim circumferentially. I started with a 44 reamer and medialized to the inner table. I sequentially reamed up to a size 54 and impacted a 54mm cup at 45 degrees of inclination and 25 degrees of version. I then placed two acetabular screws into the superior safe zone using standard AO technique. I then placed a 20 deg posterior lipped liner and turned my attention to the femur. I identified the piriformis insertion and used this as a starting point for my conrad cutter. The medius tendon was protected with a Hibs retractor. A Charnley awl was inserted in the canal and a curved curette used to remove the lateral bone. I irrigated copiously. I then sequentially broached in the patient's natural version to a size 5 and placed my trial implants. I used a #5/132/+2.5 36 based on my pre-operative template. I removed all instrumentation and copiously irrigated. I placed my final femoral implant and again took the hip through range of motion and was satisfied with the stability and length. The final +2.5 implant was impacted in place and the hip reduced. I then irrigated copiously and placed 1 g of local tranexamic acid. I performed a capsular closure with 2.0 fiberwire, Jessica's fascia with 0 Vicryl, subcuticular with 2-0 Vicryl and the skin with lino. Patient was placed into a sterile dressing. A Werewolf cautery wand was used to maintain hemostasis over the circumflex vessels. Patient was extubated brought to the recovery room in stable condition. There were no known complications.
[2024-12-13 14:00] VITALS: BP 93/59; PULSE 90; RESP 17; TEMP 37.1; O2SAT 94
[2024-12-13 15:24] VITALS: BP 90/54; PULSE 91; RESP 17; TEMP 37.9; O2SAT 97
--- NOTE | 2024-12-13 15:59 | MHC.CM.PN ---
EMR REVIEWED, PT ADMITTED SAME DAY CARE S/P HIP REPLACEMENT, CM MET W/PT WHO WAS DROWSY DURING INTERVIEW HOWEVER WAS ABLE TO ANSWER QUESTIONS, PT LIVES ALONE AND FAMILY FOR TRANSPORT. PT HAS A FWW AND GRAB BARS IN FOR DME, A [facility] NURSE CM AND NO HOME SERVICES, [facility] REF PLACED BY ORTHO AND P.T. RECOMMENDING STR VS HOME W/SERVICES. PT VERIFIES PCP IS DR. JOE PAREDES AND HAS BEEN EDUCATED ON AND DECLINES TO COMPLETE A HCP AT THIS TIME, CM TO REVIST IF PT NEEDS STR.
[2024-12-13 19:49] VITALS: BP 100/52; PULSE 96; RESP 18; TEMP 37.6; O2SAT 94
[2024-12-13] MEDS: HYDROmorphone HCl 0.5 MG/0.5 ML SYRINGE 0.25 MG IVPUSH (20:25)
[2024-12-13] MEDS: QUEtiapine Fumarate 300 MG TABLET 600 MG PO (20:30)
[2024-12-13] MEDS: Melatonin 3 MG TABLET 6 MG PO (20:30)
[2024-12-13] MEDS: Acetaminophen 325 MG TABLET 650 MG PO (20:32)
[2024-12-13] MEDS: 0.9 % Sodium Chloride Flush 3 ML SYRINGE IVFLUSH (20:34)
[2024-12-14] VITALS (7 sets, daily range): BP systolic 90–116; BP diastolic 55–60; PULSE 89–94; RESP 16–18; TEMP 36.4–37.8; O2SAT 95–97
--- NOTE | ~2024-12-14 | XR_ITS ---
EXAMINATION: XR PELVIS CLINICAL INFORMATION: lt ramez COMPARISON: 03/23/2024 TECHNIQUE: AP view of the pelvis. FINDINGS: There has been a left total hip arthroplasty. Femoral, and acetabular components are intact, well seated, in anatomic alignment. There is no periprosthetic abnormality or fracture. End-stage arthrosis right hip joint, unchanged. No soft tissue abnormalities. XR/XR pelvis 1-2V IMPRESSION: Total left hip arthroplasty without complication. Electronically signed by: Neftali Sosa MD 12/12/2024 11:33 AM EDT
--- NOTE | 2024-12-14 03:56 | PC.NURSE ---
pt allowed to sleep throughout the night, pain appears to be controlled at this time, respirations even and non-labored with no apparent distress, VSS. Aquacel dsg to left hip CDI, no staining noted at this time, ice applied to left hip. Call gomes within reach
[2024-12-14 06:13] LABS: MANUAL DIFF FLAG NO
[2024-12-14] MEDS: Levothyroxine Sodium 175 MCG TABLET PO (06:16)
[2024-12-14] MEDS: Omeprazole 20 MG CAPSULE.DR PO (06:16)
[2024-12-14 06:22] LABS: Basophils Percent Auto 0.3 % (0-2); Eosinophils Percent Auto 0.8 % (0-4); Imm Gran Abs Auto 0.02 X10*3/uL (0.00-0.03); Imm Gran Pct Auto 0.5 % (0.0-0.4); Lymphocytes Absolute Auto 0.9 X10*3/uL (1.2-4.9); Lymphocytes Percent Auto 24.5 % (20-40); Mean Corpuscular HGB Conc 32.5 g/dl (31.0-35.0); Mean Corpuscular Hemoglobin 30.8 pg (27.0-33.0); Mean Corpuscular Volume 94.6 fL (80.0-98.0); Mean Platelet Volume 9.7 fL (9.4-12.3); Monocytes Absolute Auto 0.4 X10*3/uL (0.1-1.2); Monocytes Percent Auto 10.6 % (2-11); Neutrophils Absolute Auto 2.3 x10*3/uL (2.0-8.3); Neutrophils Percent Auto 63.3 % (45-73); Platelet Count 140 X10*3/uL (160-400); Red Blood Count 2.21 X10*6/uL (4.20-5.50); Red Cell Distribution Width 14.5 % (11.0-16.0); White Blood Count 3.7 X10*3/uL (4.8-10.8)
[2024-12-14 06:32] LABS: Alanine Aminotransferase 6 U/L (0-31); Albumin Level 2.9 g/dL (3.5-5.0); Anion Gap 9 (12-20); Aspartate Amino Transferase 21 U/L (5-31); Bilirubin Direct 0.2 mg/dL (0.0-0.5); Bilirubin Total 0.5 mg/dL (0.0-1.0); Blood Urea Nitrogen 10 mg/dL (9-16); Calcium 8.3 mg/dL (8.4-10.2); Carbon Dioxide 25 mmol/L (22-29); Chloride 109 mmol/L (96-108); Creatinine Clr Calc Pharmacy 132.2; Estimated Glomerular Filt Rate > 60; Glucose Fasting 100 mg/dL (60-99); Glucose Random 100 mg/dL (60-115); Potassium 3.3 mmol/L (3.3-5.1); Sodium 140 mmol/L (135-145); Total Protein 5.1 g/dL (6.5-8.0)
[2024-12-14 06:36] LABS: Hematocrit 20.9 % (37.0-47.0); Hemoglobin 6.8 g/dl (12.0-16.0)
[2024-12-14 06:43] LABS: Alkaline Phosphatase 58 U/L (39-117)
--- NOTE | 2024-12-14 09:11 | PM.PNORT ---
Subjective Subjective Date of Service: 12/14/24 Interval history: POD2 s/p LTHA Patient is resting in bed - Opens her eyes but falls back to sleep during the interview No overnight events Pain is managed H&H dropped to 6.8/20.9 No additional complaints Physical Exam Vital Signs: Vital Signs: Last Vital Signs Temp 98.5 F 12/14/24 08:04 Pulse 89 12/14/24 08:04 Resp 18 12/14/24 08:04 BP 103/56 L 12/14/24 08:04 Pulse Ox 95 12/14/24 08:04 O2 Del Method Room Air 12/14/24 08:04 BMI result Body Mass Index 39.1 Const: General: cooperative, healthy appearing and no acute distress Resp: Effort & Inspection: normal respiratory effort and able to speak in complete sentences Cardio: Rate: regular rate Peripheral pulses: Peripheral pulses 2+ throughout GI: Palpation (GI): Soft to palpation Skin: Lesions: no lesions Rashes: no rashes Extrem: Other: Left hip dressing is c/d/i. Calf is supple and nontender. Sensation intact. Pedal pulse intact. Procedures Date of Service Date of Service: 12/14/24 Progress Note: A&P Assessment and plan (1) Status post total replacement of left hip: Status: Acute Plan Continue pain mgmnt Continue Lovenox for dvt ppx Continue PT/OT for LTHA - WBAT posterior precautions Dispo planning- PT, pain mgmnt, transfusion Time Spent With Patient Time: Total time managing care of this patient today ____ minutes. Quality Stroke Does the patient have a stroke diagnosis?: No VTE Prior VTE?: No VTE Risk Level:: Medical - moderate - high VTE Device Contraindication: N/A - Device Ordered VTE Drug Contraindication: N/A - Med Ordered
[2024-12-14] MEDS: Venlafaxine HCl ER 75 MG CAP.ER.24H PO (09:38)
[2024-12-14] MEDS: Venlafaxine HCl ER 150 MG CAP.ER.24H PO (09:38)
[2024-12-14] MEDS: valACYclovir HCL 1,000 MG TABLET 1000 MG PO (09:38)
[2024-12-14] MEDS: Loratadine 10 MG TABLET PO (09:38)
[2024-12-14] MEDS: Gabapentin 400 MG CAPSULE 800 MG PO ×3 (09:38→21:22)
[2024-12-14] MEDS: Docusate Sodium 100 MG CAPSULE PO ×2 (09:39→21:22)
[2024-12-14] MEDS: oxyCODONE HCl ER 10 MG TAB.ER.12H PO ×2 (09:39→21:21)
[2024-12-14] MEDS: Enoxaparin Sodium 40 MG/0.4 ML SYRINGE SUBCUT (09:40)
[2024-12-14] MEDS: polyethylene glycoL 3350 17 GM POWD.PACK PO (09:40)
[2024-12-14] MEDS: Celecoxib 200 MG CAPSULE PO ×2 (09:40→21:22)
[2024-12-14] MEDS: 0.9 % Sodium Chloride Flush 3 ML SYRINGE IVFLUSH ×2 (09:41→15:41)
--- NOTE | 2024-12-14 09:47 | MHC.CM.PN ---
EMR REVIEWED, PT NOW MEETING ACUTE INPT D/T LOW H&H AND NEED FOR TRANSFUSION, IMM DELIVERED TO BEDSIDE, [facility] FOLLOWING, CM WILL CONT TO FOLLOW DC NEEDS.
[2024-12-14] MEDS: Acetaminophen 325 MG TABLET 650 MG PO (16:30)
[2024-12-14] MEDS: Melatonin 3 MG TABLET 6 MG PO (21:22)
[2024-12-14] MEDS: QUEtiapine Fumarate 300 MG TABLET 600 MG PO (23:03)
[2024-12-14] MEDS: oxyCODONE HCl Immed Release 5 MG TABLET PO (23:04)
[2024-12-15] VITALS (11 sets, daily range): BP systolic 89–116; BP diastolic 46–64; PULSE 81–93; RESP 14–18; TEMP 36.4–37.3; O2SAT 93–99
[2024-12-15] MEDS: 0.9 % Sodium Chloride Flush 3 ML SYRINGE IVFLUSH ×4 (00:18→23:01)
[2024-12-15] MEDS: Levothyroxine Sodium 175 MCG TABLET PO (05:29)
[2024-12-15] MEDS: Omeprazole 20 MG CAPSULE.DR PO (05:29)
[2024-12-15] MEDS: polyethylene glycoL 3350 17 GM POWD.PACK PO (07:13)
[2024-12-15] MEDS: Celecoxib 200 MG CAPSULE PO ×2 (07:14→20:03)
[2024-12-15] MEDS: Venlafaxine HCl ER 150 MG CAP.ER.24H PO (07:14)
[2024-12-15] MEDS: Loratadine 10 MG TABLET PO (07:14)
[2024-12-15] MEDS: Docusate Sodium 100 MG CAPSULE PO ×2 (07:14→20:04)
[2024-12-15] MEDS: oxyCODONE HCl Immed Release 5 MG TABLET PO ×3 (07:14→14:30)
[2024-12-15] MEDS: valACYclovir HCL 1,000 MG TABLET 1000 MG PO (07:14)
[2024-12-15] MEDS: oxyCODONE HCl ER 10 MG TAB.ER.12H PO ×2 (07:14→20:04)
[2024-12-15] MEDS: Gabapentin 400 MG CAPSULE 800 MG PO ×3 (07:14→20:03)
[2024-12-15] MEDS: Venlafaxine HCl ER 75 MG CAP.ER.24H PO (07:14)
[2024-12-15 08:17] LABS: MANUAL DIFF FLAG NO
[2024-12-15 08:19] LABS: Basophils Percent Auto 0.2 % (0-2); Eosinophils Absolute Auto 0.1 X10*3/uL (0.0-0.4); Eosinophils Percent Auto 1.9 % (0-4); Hematocrit 23.4 % (37.0-47.0); Hemoglobin 7.7 g/dl (12.0-16.0); Imm Gran Abs Auto 0.01 X10*3/uL (0.00-0.03); Imm Gran Pct Auto 0.2 % (0.0-0.4); Lymphocytes Percent Auto 25.2 % (20-40); Mean Corpuscular HGB Conc 32.9 g/dl (31.0-35.0); Mean Corpuscular Hemoglobin 31.4 pg (27.0-33.0); Mean Corpuscular Volume 95.5 fL (80.0-98.0); Mean Platelet Volume 9.4 fL (9.4-12.3); Monocytes Absolute Auto 0.4 X10*3/uL (0.1-1.2); Neutrophils Absolute Auto 2.6 x10*3/uL (2.0-8.3); Neutrophils Percent Auto 63.5 % (45-73); Platelet Count 173 X10*3/uL (160-400); Red Blood Count 2.45 X10*6/uL (4.20-5.50); Red Cell Distribution Width 14.4 % (11.0-16.0); White Blood Count 4.1 X10*3/uL (4.8-10.8)
[2024-12-15 08:36] LABS: Anion Gap 9 (12-20); Blood Urea Nitrogen 9 mg/dL (9-16); Calcium 8.4 mg/dL (8.4-10.2); Carbon Dioxide 28 mmol/L (22-29); Chloride 106 mmol/L (96-108); Creatinine Clr Calc Pharmacy 137.3; Estimated Glomerular Filt Rate > 60; Glucose Random 93 mg/dL (60-115); Potassium 3.4 mmol/L (3.3-5.1); Sodium 140 mmol/L (135-145)
[2024-12-15] MEDS: Enoxaparin Sodium 40 MG/0.4 ML SYRINGE SUBCUT (09:39)
--- NOTE | 2024-12-15 09:49 | PM.PNORT ---
Subjective Subjective Date of Service: 12/15/24 Interval history: POD2 s/p LTHA Patient is resting comfortably in bed No overnight events Pain is managed H&H dropped to 6.8/20.9, yesterday, today H&H is 7.7/23.4 No additional complaints Physical Exam Vital Signs: Vital Signs: Last Vital Signs Temp 98.6 F 12/15/24 07:33 Pulse 89 12/15/24 09:01 Resp 14 12/15/24 07:33 BP 89/52 L 12/15/24 09:01 Pulse Ox 95 12/15/24 09:01 O2 Del Method Room Air 12/15/24 07:33 BMI result Body Mass Index 39.1 Const: General: cooperative, healthy appearing and no acute distress Resp: Effort & Inspection: normal respiratory effort and able to speak in complete sentences Cardio: Rate: regular rate Peripheral pulses: Peripheral pulses 2+ throughout GI: Palpation (GI): Soft to palpation Skin: Lesions: no lesions Rashes: no rashes Extrem: Other: Left hip dressing is c/d/i. Calf is supple and nontender. Sensation intact. Pedal pulse intact. Procedures Date of Service Date of Service: 12/15/24 Progress Note: A&P Assessment and plan (1) Status post total replacement of left hip: Status: Acute Plan Continue pain mgmnt Continue Lovenox for dvt ppx 1 L fluid bolus this morning for hypotension and anemia Continue PT/OT for LTHA - WBAT posterior precautions Dispo planning- PT, pain mgmnt, medical clearance, Time Spent With Patient Time: Total time managing care of this patient today ____ minutes. Quality Stroke Does the patient have a stroke diagnosis?: No VTE Prior VTE?: No VTE Risk Level:: Medical - moderate - high VTE Device Contraindication: N/A - Device Ordered VTE Drug Contraindication: N/A - Med Ordered
[2024-12-15] MEDS: Acetaminophen 325 MG TABLET 650 MG PO (11:02)
[2024-12-15] MEDS: clonazePAM 0.5 MG TABLET PO (11:04)
[2024-12-15] MEDS: 0.9 % Sodium Chloride 1,000 ML 999 ML IV (12:04)
--- NOTE | 2024-12-15 15:16 | MHC.CM.PN ---
cm met w/pt to complete hcp, pt names her son Isma Parekh [phone], pt provided with educational handout and original, [facility] and [facility] in chart. pt reports she has no preference of str and agreeable to [facility] if they offer.
--- NOTE | 2024-12-15 15:38 | PC.NURSE ---
Assumed care of pt @ 1500. This RN notified by charge nurse that this RN is being floated off unit - report given to receiving RN (Elizabeth) @ [phone].
--- NOTE | 2024-12-15 16:31 | MHC.CM.PN ---
[facility]ICALLY ACCEPTING PT AND HAS SUBMITTED FOR AUTH, PT WILL NEED BLS TRANSPORT FOR TRANSPORT.
--- NOTE | 2024-12-15 19:30 | PC.NURSE ---
Report given to the night Nurse, 2nd unit of blood still running.
[2024-12-15] MEDS: Melatonin 3 MG TABLET 6 MG PO (20:03)
[2024-12-15] MEDS: HYDROmorphone HCl 0.5 MG/0.5 ML SYRINGE 0.25 MG IVPUSH (21:13)
[2024-12-15] MEDS: QUEtiapine Fumarate 300 MG TABLET 600 MG PO (22:59)
[2024-12-16] VITALS (8 sets, daily range): BP systolic 82–118; BP diastolic 55–70; PULSE 63–86; RESP 17–18; TEMP 36.3–37.2; O2SAT 96–98
[2024-12-16] MEDS: HYDROmorphone HCl 0.5 MG/0.5 ML SYRINGE 0.25 MG IVPUSH (06:01)
[2024-12-16] MEDS: Omeprazole 20 MG CAPSULE.DR PO (06:01)
[2024-12-16] MEDS: Levothyroxine Sodium 175 MCG TABLET PO (06:01)
[2024-12-16 06:10] LABS: MANUAL DIFF FLAG NO
[2024-12-16 06:16] LABS: Basophils Percent Auto 0.5 % (0-2); Eosinophils Absolute Auto 0.1 X10*3/uL (0.0-0.4); Eosinophils Percent Auto 3.2 % (0-4); Hematocrit 28.6 % (37.0-47.0); Hemoglobin 9.4 g/dl (12.0-16.0); Imm Gran Abs Auto 0.02 X10*3/uL (0.00-0.03); Imm Gran Pct Auto 0.5 % (0.0-0.4); Lymphocytes Absolute Auto 1.2 X10*3/uL (1.2-4.9); Lymphocytes Percent Auto 28.7 % (20-40); Mean Corpuscular HGB Conc 32.9 g/dl (31.0-35.0); Mean Corpuscular Hemoglobin 30.7 pg (27.0-33.0); Mean Corpuscular Volume 93.5 fL (80.0-98.0); Mean Platelet Volume 9.1 fL (9.4-12.3); Monocytes Absolute Auto 0.3 X10*3/uL (0.1-1.2); Monocytes Percent Auto 8.4 % (2-11); Neutrophils Absolute Auto 2.4 x10*3/uL (2.0-8.3); Neutrophils Percent Auto 58.7 % (45-73); Platelet Count 199 X10*3/uL (160-400); Red Blood Count 3.06 X10*6/uL (4.20-5.50); Red Cell Distribution Width 15.2 % (11.0-16.0)
--- NOTE | 2024-12-16 06:22 | PC.NURSE ---
on assessment this morning patients staining under dressing spread out from initial assessment
[2024-12-16 06:24] LABS: Anion Gap 13 (12-20); Blood Urea Nitrogen 9 mg/dL (9-16); Carbon Dioxide 27 mmol/L (22-29); Chloride 106 mmol/L (96-108); Creatinine Clr Calc Pharmacy 132.2; Estimated Glomerular Filt Rate > 60; Glucose Random 116 mg/dL (60-115); Potassium 3.5 mmol/L (3.3-5.1); Sodium 142 mmol/L (135-145)
[2024-12-16] MEDS: Acetaminophen 325 MG TABLET 650 MG PO ×2 (07:45→17:38)
[2024-12-16] MEDS: oxyCODONE HCl Immed Release 5 MG TABLET PO ×2 (07:45→17:37)
--- NOTE | 2024-12-16 08:38 | PM.PNORT ---
Subjective Subjective Date of Service: 12/16/24 Interval history: POD3 s/p LTHA Patient is resting comfortably in bed Patient reports feeling much better and more with it today No overnight events Pain is managed H/H 9.4/28.6 No additional complaints Physical Exam Vital Signs: Vital Signs: Last Vital Signs Temp 97.9 F 12/16/24 07:41 Pulse 77 12/16/24 07:41 Resp 18 12/16/24 07:41 BP 118/56 L 12/16/24 07:41 Pulse Ox 98 12/16/24 07:41 O2 Del Method Room Air 12/16/24 07:41 BMI result Body Mass Index 39.1 Const: General: cooperative, healthy appearing and no acute distress Resp: Effort & Inspection: normal respiratory effort and able to speak in complete sentences Cardio: Rate: regular rate Peripheral pulses: Peripheral pulses 2+ throughout GI: Palpation (GI): Soft to palpation Skin: Lesions: no lesions Rashes: no rashes Extrem: Other: Left hip dressing is saturated. Once dressing is removed, incision is clean, dry, intact, no evidence of active bleeding at this time. Calf is supple and nontender. Sensation intact. Pedal pulse intact. Procedures Date of Service Date of Service: 12/16/24 Progress Note: A&P Assessment and plan (1) Status post total replacement of left hip: Status: Acute Plan Continue pain mgmnt Continue Lovenox for dvt ppx Continue monitoring of H&H and blood pressure Continue PT/OT for LTHA - WBAT posterior precautions Dispo planning- PT, pain mgmnt, medical clearance, Time Spent With Patient Time: Total time managing care of this patient today ____ minutes. Quality Stroke Does the patient have a stroke diagnosis?: No VTE Prior VTE?: No VTE Risk Level:: Medical - moderate - high VTE Device Contraindication: N/A - Device Ordered VTE Drug Contraindication: N/A - Med Ordered
[2024-12-16] MEDS: Enoxaparin Sodium 40 MG/0.4 ML SYRINGE SUBCUT (09:47)
[2024-12-16] MEDS: polyethylene glycoL 3350 17 GM POWD.PACK PO (09:47)
[2024-12-16] MEDS: Venlafaxine HCl ER 150 MG CAP.ER.24H PO (09:49)
[2024-12-16] MEDS: Venlafaxine HCl ER 75 MG CAP.ER.24H PO (09:50)
[2024-12-16] MEDS: Loratadine 10 MG TABLET PO (09:50)
[2024-12-16] MEDS: oxyCODONE HCl ER 10 MG TAB.ER.12H PO (09:50)
[2024-12-16] MEDS: Gabapentin 400 MG CAPSULE 800 MG PO ×3 (09:50→21:22)
[2024-12-16] MEDS: Celecoxib 200 MG CAPSULE PO ×2 (09:50→21:22)
[2024-12-16] MEDS: valACYclovir HCL 1,000 MG TABLET 1000 MG PO (09:50)
[2024-12-16] MEDS: Docusate Sodium 100 MG CAPSULE PO ×2 (09:50→21:22)
[2024-12-16 15:15] LABS: Glucose, Whole Blood 100 mg/dL (60-115)
[2024-12-16] MEDS: clonazePAM 0.5 MG TABLET PO (19:35)
[2024-12-16] MEDS: Lactated Ringers 500 ML 999 ML IV (19:53)
[2024-12-16 20:15] LABS: MANUAL DIFF FLAG NO
[2024-12-16 20:16] LABS: Basophils Percent Auto 0.3 % (0-2); Eosinophils Absolute Auto 0.1 X10*3/uL (0.0-0.4); Eosinophils Percent Auto 3.1 % (0-4); Hematocrit 28.9 % (37.0-47.0); Hemoglobin 9.6 g/dl (12.0-16.0); Imm Gran Abs Auto 0.01 X10*3/uL (0.00-0.03); Imm Gran Pct Auto 0.3 % (0.0-0.4); Lymphocytes Percent Auto 26.1 % (20-40); Mean Corpuscular HGB Conc 33.2 g/dl (31.0-35.0); Mean Corpuscular Volume 93.2 fL (80.0-98.0); Mean Platelet Volume 8.8 fL (9.4-12.3); Monocytes Absolute Auto 0.4 X10*3/uL (0.1-1.2); Monocytes Percent Auto 11.3 % (2-11); Neutrophils Absolute Auto 2.3 x10*3/uL (2.0-8.3); Neutrophils Percent Auto 58.9 % (45-73); Platelet Count 207 X10*3/uL (160-400); Red Cell Distribution Width 15.2 % (11.0-16.0); White Blood Count 3.9 X10*3/uL (4.8-10.8)
[2024-12-16 20:27] LABS: Anion Gap 15 (12-20); Blood Urea Nitrogen 12 mg/dL (9-16); Calcium 8.8 mg/dL (8.4-10.2); Carbon Dioxide 24 mmol/L (22-29); Chloride 106 mmol/L (96-108); Creatinine Clr Calc Pharmacy 127.5; Estimated Glomerular Filt Rate > 60; Glucose Random 108 mg/dL (60-115); Potassium 3.8 mmol/L (3.3-5.1); Sodium 141 mmol/L (135-145)
--- NOTE | 2024-12-16 20:31 | PC.NURSE ---
patient stated she wasn't feeling good, experiencing dizziness. when I asked her what was the problem she just kept repeating I don't feel good . patients vitals were taken with a manual BP 82/60. Dr. Correia notified & ordered LR bolus plus labs.
[2024-12-16 20:52] LABS: Lactic Acid 1.4 mmol/L (0.5-2.0)
[2024-12-16] MEDS: Melatonin 3 MG TABLET 6 MG PO (21:22)
[2024-12-16] MEDS: QUEtiapine Fumarate 300 MG TABLET 600 MG PO (22:59)
[2024-12-16] MEDS: 0.9 % Sodium Chloride Flush 3 ML SYRINGE IVFLUSH (22:59)
[2024-12-17 03:28] VITALS: BP 110/58; PULSE 71; RESP 19; TEMP 37.1; O2SAT 95
[2024-12-17] MEDS: oxyCODONE HCl Immed Release 5 MG TABLET PO ×3 (04:57→21:07)
[2024-12-17] MEDS: Levothyroxine Sodium 175 MCG TABLET PO (04:58)
[2024-12-17] MEDS: Omeprazole 20 MG CAPSULE.DR PO (04:58)
[2024-12-17 05:48] LABS: MANUAL DIFF FLAG NO
[2024-12-17 05:54] LABS: Basophils Percent Auto 0.9 % (0-2); Eosinophils Absolute Auto 0.1 X10*3/uL (0.0-0.4); Eosinophils Percent Auto 3.4 % (0-4); Hemoglobin 9.1 g/dl (12.0-16.0); Imm Gran Abs Auto 0.03 X10*3/uL (0.00-0.03); Imm Gran Pct Auto 0.9 % (0.0-0.4); Lymphocytes Percent Auto 30.7 % (20-40); Mean Corpuscular HGB Conc 32.5 g/dl (31.0-35.0); Mean Corpuscular Hemoglobin 30.4 pg (27.0-33.0); Mean Corpuscular Volume 93.6 fL (80.0-98.0); Mean Platelet Volume 9.2 fL (9.4-12.3); Monocytes Absolute Auto 0.4 X10*3/uL (0.1-1.2); Monocytes Percent Auto 11.8 % (2-11); Neutrophils Absolute Auto 1.7 x10*3/uL (2.0-8.3); Neutrophils Percent Auto 52.3 % (45-73); Platelet Count 210 X10*3/uL (160-400); Red Blood Count 2.99 X10*6/uL (4.20-5.50); White Blood Count 3.2 X10*3/uL (4.8-10.8)
[2024-12-17 06:05] LABS: Anion Gap 14 (12-20); Blood Urea Nitrogen 11 mg/dL (9-16); Calcium 8.7 mg/dL (8.4-10.2); Carbon Dioxide 25 mmol/L (22-29); Chloride 109 mmol/L (96-108); Estimated Glomerular Filt Rate > 60; Glucose Random 93 mg/dL (60-115); Potassium 3.8 mmol/L (3.3-5.1); Sodium 144 mmol/L (135-145)
[2024-12-17 07:31] VITALS: BP 110/60; PULSE 78; RESP 14; TEMP 36.8; O2SAT 97
[2024-12-17] MEDS: polyethylene glycoL 3350 17 GM POWD.PACK PO (08:28)
[2024-12-17] MEDS: Docusate Sodium 100 MG CAPSULE PO ×2 (08:28→21:08)
[2024-12-17] MEDS: Celecoxib 200 MG CAPSULE PO ×2 (08:28→21:08)
[2024-12-17] MEDS: valACYclovir HCL 1,000 MG TABLET 1000 MG PO (08:28)
[2024-12-17] MEDS: Loratadine 10 MG TABLET PO (08:28)
[2024-12-17] MEDS: Gabapentin 400 MG CAPSULE 800 MG PO ×3 (08:28→21:09)
[2024-12-17] MEDS: Enoxaparin Sodium 40 MG/0.4 ML SYRINGE SUBCUT (08:28)
[2024-12-17] MEDS: Venlafaxine HCl ER 75 MG CAP.ER.24H PO (08:28)
[2024-12-17] MEDS: Venlafaxine HCl ER 150 MG CAP.ER.24H PO (08:28)
[2024-12-17] MEDS: 0.9 % Sodium Chloride Flush 3 ML SYRINGE IVFLUSH ×2 (08:32→21:10)
--- NOTE | 2024-12-17 10:04 | PM.PNORT ---
Subjective Subjective Date of Service: 12/17/24 Interval history: POD5 s/p LTHA Patient is resting comfortably in bed Patient reports feeling much better today No overnight events Pain is managed H/H 9.1/28.0 No additional complaints Physical Exam Vital Signs: Vital Signs: Last Vital Signs Temp 98.2 F 12/17/24 07:31 Pulse 78 12/17/24 07:31 Resp 14 12/17/24 07:31 BP 110/60 12/17/24 07:31 Pulse Ox 97 12/17/24 07:31 O2 Del Method Room Air 12/17/24 07:31 BMI result Body Mass Index 39.1 Const: General: cooperative, healthy appearing and no acute distress Resp: Effort & Inspection: normal respiratory effort and able to speak in complete sentences Cardio: Rate: regular rate Peripheral pulses: Peripheral pulses 2+ throughout GI: Palpation (GI): Soft to palpation Skin: Lesions: no lesions Rashes: no rashes Extrem: Other: Left hip dressing clean, dry, intact, but does have visible drainage. Once dressing is removed, incision is clean, dry, intact, no evidence of active bleeding at this time. Calf is supple and nontender. Sensation intact. Pedal pulse intact. Procedures Date of Service Date of Service: 12/17/24 Progress Note: A&P Assessment and plan (1) Status post total replacement of left hip: Status: Acute Plan Continue pain mgmnt Continue Lovenox for dvt ppx Continue monitoring of H&H and blood pressure Continue PT/OT for LTHA - WBAT posterior precautions Dispo planning- PT, pain mgmnt, medical clearance, insurance authorization for rehab Time Spent With Patient Time: Total time managing care of this patient today ____ minutes. Quality Stroke Does the patient have a stroke diagnosis?: No VTE Prior VTE?: No VTE Risk Level:: Medical - moderate - high VTE Device Contraindication: N/A - Device Ordered VTE Drug Contraindication: N/A - Med Ordered
[2024-12-17] MEDS: Acetaminophen 325 MG TABLET 650 MG PO ×2 (14:06→21:05)
[2024-12-17 15:08] VITALS: BP 125/67; PULSE 81; RESP 17; TEMP 36.6; O2SAT 96
[2024-12-17 19:13] VITALS: BP 114/81; PULSE 84; RESP 18; TEMP 36.4; O2SAT 99
[2024-12-17] MEDS: QUEtiapine Fumarate 300 MG TABLET 600 MG PO (21:08)
[2024-12-17] MEDS: Melatonin 3 MG TABLET 6 MG PO (21:09)
[2024-12-18] MEDS: HYDROmorphone HCl 0.5 MG/0.5 ML SYRINGE 0.25 MG IVPUSH (00:22)
[2024-12-18] MEDS: clonazePAM 0.5 MG TABLET PO (00:51)
[2024-12-18 03:50] VITALS: BP 95/55; PULSE 72; RESP 16; TEMP 36.2; O2SAT 95
[2024-12-18] MEDS: Omeprazole 20 MG CAPSULE.DR PO (05:35)
[2024-12-18] MEDS: Levothyroxine Sodium 175 MCG TABLET PO (05:35)
[2024-12-18 06:28] VITALS: BP 103/66
[2024-12-18 06:35] LABS: MANUAL DIFF FLAG NO
[2024-12-18 06:48] LABS: Basophils Percent Auto 0.9 % (0-2); Eosinophils Absolute Auto 0.1 X10*3/uL (0.0-0.4); Eosinophils Percent Auto 3.2 % (0-4); Hematocrit 28.3 % (37.0-47.0); Hemoglobin 9.2 g/dl (12.0-16.0); Imm Gran Abs Auto 0.03 X10*3/uL (0.00-0.03); Imm Gran Pct Auto 0.9 % (0.0-0.4); Lymphocytes Absolute Auto 1.2 X10*3/uL (1.2-4.9); Lymphocytes Percent Auto 35.4 % (20-40); Mean Corpuscular HGB Conc 32.5 g/dl (31.0-35.0); Mean Corpuscular Hemoglobin 30.6 pg (27.0-33.0); Mean Platelet Volume 9.3 fL (9.4-12.3); Monocytes Absolute Auto 0.4 X10*3/uL (0.1-1.2); Monocytes Percent Auto 11.5 % (2-11); Neutrophils Absolute Auto 1.7 x10*3/uL (2.0-8.3); Neutrophils Percent Auto 48.1 % (45-73); Platelet Count 243 X10*3/uL (160-400); Red Blood Count 3.01 X10*6/uL (4.20-5.50); Red Cell Distribution Width 14.9 % (11.0-16.0); White Blood Count 3.5 X10*3/uL (4.8-10.8)
[2024-12-18 06:58] LABS: Anion Gap 12 (12-20); Blood Urea Nitrogen 13 mg/dL (9-16); Calcium 9.1 mg/dL (8.4-10.2); Carbon Dioxide 27 mmol/L (22-29); Chloride 106 mmol/L (96-108); Creatinine Clr Calc Pharmacy 132.2; Estimated Glomerular Filt Rate > 60; Glucose Random 79 mg/dL (60-115); Potassium 3.8 mmol/L (3.3-5.1); Sodium 141 mmol/L (135-145)
[2024-12-18 07:21] VITALS: BP 108/53; PULSE 74; RESP 18; TEMP 37; O2SAT 96
[2024-12-18] MEDS: oxyCODONE HCl Immed Release 5 MG TABLET PO ×3 (07:26→14:44)
[2024-12-18] MEDS: polyethylene glycoL 3350 17 GM POWD.PACK PO (07:27)
[2024-12-18] MEDS: Loratadine 10 MG TABLET PO (07:27)
[2024-12-18] MEDS: Celecoxib 200 MG CAPSULE PO (07:27)
[2024-12-18] MEDS: Venlafaxine HCl ER 150 MG CAP.ER.24H PO (07:27)
[2024-12-18] MEDS: 0.9 % Sodium Chloride Flush 3 ML SYRINGE IVFLUSH (07:27)
[2024-12-18] MEDS: Gabapentin 400 MG CAPSULE 800 MG PO ×2 (07:27→14:43)
[2024-12-18] MEDS: Venlafaxine HCl ER 75 MG CAP.ER.24H PO (07:28)
[2024-12-18] MEDS: Docusate Sodium 100 MG CAPSULE PO (07:28)
[2024-12-18] MEDS: valACYclovir HCL 1,000 MG TABLET 1000 MG PO (07:28)
--- NOTE | 2024-12-18 09:48 | PM.PNORT ---
Subjective Subjective Date of Service: 12/18/24 Interval history: POD6 s/p LTHA Patient is resting comfortably in bed Patient reports feeling much better today No overnight events Pain is managed H/H 9.2.3 No additional complaints Physical Exam Vital Signs: Vital Signs: Last Vital Signs Temp 98.6 F 12/18/24 07:21 Pulse 74 12/18/24 07:21 Resp 18 12/18/24 07:21 BP 108/53 L 12/18/24 07:21 Pulse Ox 96 12/18/24 07:21 O2 Del Method Room Air 12/18/24 07:21 BMI result Body Mass Index 39.1 Const: General: cooperative, healthy appearing and no acute distress Resp: Effort & Inspection: normal respiratory effort and able to speak in complete sentences Cardio: Rate: regular rate Peripheral pulses: Peripheral pulses 2+ throughout GI: Palpation (GI): Soft to palpation Skin: Lesions: no lesions Rashes: no rashes Extrem: Other: Left hip dressing clean, dry, intact, but does have visible drainage. Once dressing is removed, incision is clean, dry, intact, no evidence of active bleeding at this time. Calf is supple and nontender. Sensation intact. Pedal pulse intact. Procedures Date of Service Date of Service: 12/18/24 Progress Note: A&P Assessment and plan (1) Status post total replacement of left hip: Status: Acute Plan Continue pain mgmnt Continue Lovenox for dvt ppx Continue monitoring of H&H and blood pressure Continue PT/OT for LTHA - WBAT posterior precautions Dispo planning- PT, pain mgmnt, medical clearance, insurance authorization for rehab Time Spent With Patient Time: Total time managing care of this patient today ____ minutes. Quality Stroke Does the patient have a stroke diagnosis?: No VTE Prior VTE?: No VTE Risk Level:: Medical - moderate - high VTE Device Contraindication: N/A - Device Ordered VTE Drug Contraindication: N/A - Med Ordered
[2024-12-18] MEDS: Enoxaparin Sodium 40 MG/0.4 ML SYRINGE SUBCUT (10:40)
[2024-12-18] MEDS: Acetaminophen 325 MG TABLET 650 MG PO (10:54)
--- NOTE | 2024-12-18 12:45 | P.DS_ITS ---
DS: Providers Provider Date of Service: 12/18/24 Date of admission: 12/14/24 10:00 Date of discharge: 12/18/24 Primary care physician: Brianda Grant MD Consults: 12/12/24 10:40 Consult to Hospitalist Routine Comment: Consulting Provider: [facility] Reason For Exam: medical management DS: Diagnosis Discharge Diagnosis (1) Status post total replacement of left hip: Status: Acute DS: Summary Hospital Course Hospital Course: The patient underwent a successful left total hip arthroplasty, they were transferred to PACU and then to the floor to recover. During their stay, their vitals were stable, afebrile at 98.6. Labs were unremarkable, H/H 9.2/28.3. POD 1 they were started on Lovenox 40mg daily for DVT ppx, they also received Physical Therapy services twice a day. Prior to discharge, their dressing was clean dry and intact, and the plan was to be discharged to acute rehab Status at Discharge Cognitive/behavioral status at discharge: stable for discharge Time Attestation Discharge Coordination Time (in mins): 30 Quality: Safe Use of Opioids Does Pt have an Active Cancer Diagnosis on the Problem List?: No Quality: Stroke Does the patient have a stroke diagnosis?: No Physical Exam Vital Signs: Vital Signs: Last Vital Signs Temp 98.6 F 12/18/24 07:21 Pulse 74 12/18/24 07:21 Resp 18 12/18/24 07:21 BP 108/53 L 12/18/24 07:21 Pulse Ox 96 12/18/24 07:21 O2 Del Method Room Air 12/18/24 07:21 BMI result Body Mass Index 39.1 Const: General: cooperative, healthy appearing and no acute distress Resp: Effort & Inspection: normal respiratory effort and able to speak in complete sentences Cardio: Rate: regular rate Peripheral pulses: Peripheral pulses 2+ throughout GI: Palpation (GI): Soft to palpation Skin: Lesions: no lesions Rashes: no rashes Extrem: Other: Left hip dressing clean, dry, intact, but does have visible drainage. Once dressing is removed, incision is clean, dry, intact, no evidence of active bleeding at this time. Calf is supple and nontender. Sensation intact. Pedal pulse intact. DS: Data Data Completed and Pending Completed studies during hospitalization [Text1]: Pending at discharge 12/12/24 09:36 Surgical [PTH] Routine Procedures Insertion of Internal Fixation Device into Right Lower Femur, Open Approach (01/28/22) Removal of Liner from Right Knee Joint, Open Approach (01/28/22) Reposition Left Fibula with Internal Fixation Device, Percutaneous Approach (01/28/22) Reposition Left Tibia with Internal Fixation Device, Percutaneous Approach (01/28/22) Reposition Left Tibia, External Approach (01/28/22) Supplement Right Knee Joint with Liner, Open Approach (01/28/22) Transfusion of Nonautologous Red Blood Cells into Peripheral Vein, Percutaneous Approach (01/28/22) Labs on day of discharge: Laboratory Results - last 24 hr 12/18/24 05:36 WBC 3.5 L RBC 3.01 L Hgb 9.2 L Hct 28.3 L MCV 94.0 MCH 30.6 MCHC 32.5 RDW 14.9 Plt Count 243 MPV 9.3 L Immature Gran % (Auto) 0.9 H Neut % (Auto) 48.1 Lymph % (Auto) 35.4 [place] % (Auto) 11.5 H Eos % (Auto) 3.2 Baso % (Auto) 0.9 Lymph # (Auto) 1.2 [place] # (Auto) 0.4 Eos # (Auto) 0.1 Baso # (Auto) 0.0 Abs Immat Gran (auto) 0.03 Absolute Neuts (auto) 1.7 L Absolute Nucleated RBC 0.000 Nucleated RBC % (auto) 0.0 Sodium 141 Potassium 3.8 Chloride 106 Carbon Dioxide 27 Anion Gap 12 BUN 13 Creatinine 0.54 Estim Creat Clear Calc 132.2 Estimated GFR > 60 Random Glucose 79 Calcium 9.1 Discharge Plan Discharge Anticipated Discharge Date/Time: 12/18/24 12:15 Patient Disposition: Xfer Inpatient Rehab Fac Discharge Diagnosis: S/p R NAYA Referrals: [facility] [Outside] - 1 Day (ACUTE REHAB) [facility] [Outside[facility] - 1 Week Idania Carey PA-C [Physician Destination Sign Repairer] - 2 Weeks (12/28/24 12:45 [facility] Idania Carey PA-C) Discharge Medications: New oxycodone 5 mg tablet 5 mg PO Q4H PRN (Reason: pain) Qty: 42 0RF Rx Instructions: Partial Fill upon patient request. celecoxib 200 mg Capsule 200 mg PO BID 30 Days Qty: 60 0RF acetaminophen 325 mg Tablet 650 mg PO Q6H PRN (Reason: Pain, Mild 1-3,Fever,Headache) 30 Days Qty: 240 0RF enoxaparin 40 mg/0.4 mL Syringe 40 mg subcut Q24H 42 Days Qty: 16.8 0RF Continued (DME) Shoe lift See Rx Instructions .Route .MEDSUPPLY Qty: 1 0RF Rx Instructions: As directed (DME) hand held showerhead See Rx Instructions .Route .MEDSUPPLY Qty: 1 0RF Rx Instructions: As directed (DME) Ultra-Light Rollator Misc See Rx Instructions .Route Qty: 1 0RF Rx Instructions: As directed (DME) Grab bar Misc See Rx Instructions .Route Qty: 1 0RF Rx Instructions: As directed (DME) toilet seat elevator See Rx Instructions .Route .MEDSUPPLY Qty: 1 0RF Rx Instructions: As directed gabapentin 800 mg tablet 800 mg PO TID 90 Days Qty: 270 1RF docusate sodium [Colace] 100 mg capsule 200 mg PO BEDTIME 30 Days Qty: 60 5RF Citrucel 500 mg tablet 500 mg PO BID Qty: 60 5RF hydrocortisone [Proctosol HC] 2.5 % cream with perineal applicator 1 appl [place] BEDTIME PRN (Reason: hemorrhoids) Qty: 30 3RF (DME) walker Misc See Rx Instructions .MEDSUPPLY Qty: 1 0RF Rx Instructions: Folding Front wheeled walker duration 99 days (DME) 4 wheel walker with seat See Rx Instructions .Route .MEDSUPPLY Qty: 1 0RF Rx Instructions: As directed albuterol sulfate [Ventolin HFA] 90 mcg/actuation HFA aerosol inhaler 2 puff inhalation Q6H PRN (Reason: shortness of breath or wheezing) 30 Days Qty: 6.7 2RF ascorbic acid (vitamin C) 100 mg Tablet 100 mg PO QAM polyethylene glycol 3350 [Miralax] 17 gram powder in packet 17 g PO QAM tramadol 50 mg tablet 100 mg PO TID pantoprazole 40 mg tablet,delayed release (DR/EC) 40 mg PO QAM loratadine [Allergy Relief (loratadine)] 10 mg tablet 10 mg PO QAM levothyroxine 175 mcg tablet 175 mcg PO DAILY@0630 epinephrine 0.3 mg/0.3 mL auto-injector 0.3 mg IM ONCE PRN (Reason: anaphylaxis) fluticasone propionate 50 mcg/actuation spray,suspension 1 spray intranasal DAILY PRN (Reason: Allergy Symptoms) venlafaxine 150 mg capsule,extended release 24hr 150 mg PO QAM venlafaxine 75 mg capsule,extended release 24hr 75 mg PO QAM quetiapine 300 mg tablet 600 mg PO BEDTIME multivitamin Tablet 1 tab PO QAM glucosamine HCl 500 mg tablet 500 mg PO QAM Rx Instructions: administer with a meal clonazepam 0.5 mg tablet 0.5 mg PO BID PRN (Reason: Anxiety) melatonin 5 mg tablet 5 mg PO BEDTIME meloxicam 15 mg tablet 15 mg PO QAM cholecalciferol (vitamin D3) 125 mcg (5,000 unit) capsule 125 mcg PO QAM calcium carbonate 600 mg calcium (1,500 mg) tablet 600 mg PO QAM Held valacyclovir 1 gram tablet 1,000 mg PO QAM Hold Instructions: Resume on 01/15/25. Cannot take celebrex and meloxicam together Discontinued acetaminophen 500 mg tablet 1,000 mg PO Q6H PRN (Reason: pain) 30 Days Qty: 240 8RF Diet: Regular diet Activity on Discharge: Use cane or walker Stand Alone Forms: Patient Portal Discharge page Print Language: Welsh Activity Restrictions/Additional Instructions: * Physical Therapy for Total hip arthroplasty: wbat, posterior precautions, gait training, ROM, strength * Limit stair climbing * No showering, no tub bath-keep dressing clean, dry and intact * No driving x6 weeks * Continue lovenox once a day x 6 weeks * Follow up with [facility] in 2 weeks: * --you will also have your first out patient PT evadarsh on the day of your post op appt-so please plan on being in the office that day for an extended period of time. Care Plan Goals: restore normal function of right hip Health Concerns: status post right total hip arthroplasty Plan of Treatment: Physical therapy for total hip arthroplasty: WBAT, posterior precautions, gait training, range of motion, strength Limit stair climbing No showering, no tub bath-keep dressing clean dry and intact No driving for 6 weeks Continue aspirin twice a day for 6 weeks Follow-up with [facility] in 2 weeks Assessment: Stable for discharge
--- NOTE | 2024-12-18 13:28 | MHC.CM.PN ---
PT MEDICALLY CLEARED FOR DC TO ACUTE REHAB AT [facility] FOR TRANSPORT AT 3:30PM, [facility] BOOKING ID#[id number]
[2024-12-18 14:53] VITALS: BP 117/57; PULSE 75; RESP 18; TEMP 36.2; O2SAT 95
== END 2024-12-18 14:55 | DRG 470 ==
LOC: HO.SSS 10:00 → HO.S3 10:00
PROVIDERS: Hospitalist; Physician Assistant; Admitting Provider Orthopaedic Surgery; PCP Internal Medicine; Visit Provider Orthopaedic Surgery
PROC: 0SRB03A Replacement of Left Hip Joint with Ceramic Synthetic Substitute, Uncemented, Open Approach (ICD-10-PCS; CPT 27130; principal; 2024-12-12 08:30)
DX: M16.12 Unilateral primary osteoarthritis, left hip (principal); E03.9 Hypothyroidism, unspecified; Z87.891 Personal history of nicotine dependence; Z79.890 Hormone replacement therapy; Z79.899 Other long term (current) drug therapy
CPT/HCPCS: 36415; 72170; 80048; 80076; 82565; 82947; 83605; 85025; 86850; 86900; 86901; 86923; 87640; 87641; 88304; 88311; 97110; 97116; 97162; 97166; 97530; 97535; C1713; C1776; J0690; J1100; J1171; J1650; J1790; J2003; J2270; J2371; J2405; J2704; J2795; J3010; J7120; P9016

== ENCOUNTER 2024-12-28 12:34 | Outpatient (AMB) | payer OTHER, SELFPAY ==
--- OUTSIDE RECORDS SUMMARY | 2024-12-28 12:38 | XMS_ITS | Clinical Summary ---
Author Organization [employer] Address [address] [place] [address] Care Team Providers Care Property Manager Name Role Phone Unavailable Primary Care Provider Unavailabl e Immunizations Immunization Administration Dates Next Due Moderna Covid-19 Vaccine 12+ 12/25/2021, 08/18/2021,12/18/2020,2020 Moderna Covid-19 Vaccine 6+ Bivalent 08/21/2022 Social [...] Screening 1960 SDOH Screening 1960 Sigmoidoscopy 1960 Disability Screening 1960 Alcohol/Substance Use Screening 1972 Tobacco Screening [...] older (1 - 1-dose 75+ series) 12/08/2035 HIB Vaccines Aged Out No longer eligi [...] patient's age to complete this topic Meningococcal B Vaccine Aged Out No l onger eligible based on patient's age to complete this topic Meningococcal Vaccine Aged Out No josé miguel carmen eligible based on patient's age to complete this topic RSV under 20 months Aged Out No longe r eligible based on patient's age to complete this topic Rotavirus Vaccines Aged Out No longer eligible based on patient's age to complete this topic Insurance [place], [place] [facility] ONE CARE < 65 [place] [id number]
--- NOTE | 2024-12-28 12:40 | A.OFFVIS_ITS ---
Intake Visit Reasons: 2WK PO: R NAYA w/NE 12/12/24 Intake Note: Jr is a 64 year old female who presents today postoperatively after undergoing a RT NAYA on 12/12/[address] Gibbs. Patient reports her hip is great after infection,she stated the incision site is tender. Allergies amoxicillin [Augmentin] Allergy (Intermediate, Verified 12/28/24 12:42) rash cat dander Allergy (Intermediate, Verified 12/28/24 12:42) Nasal congestion clavulanic acid [Augmentin] Allergy (Intermediate, Verified 12/28/24 12:42) rash trazodone [TRAZODONE] Allergy (Intermediate, Verified 12/28/24 12:42) Shortness of Breath HPI HPI 2WK PO: R NAYA w/NE 12/12/24: Details: 64-year-old female returns to the office today 2 weeks status post right total hip arthroplasty with Dr. Gibbs on 12/12/2024. [facility]. She states when she was discharged to the rehab facility she developed what she was told was an infection in the left hip. She was placed on IV antibiotics and then p.o. antibiotics while at the rehab facility. She was discharged on p.o. Cipro. She states when she was in rehab she barely worked with physical therapy. She is discharged home and has home VNA starting tomorrow. She continues to take the antibiotics. She denies fever or chills. States her hip is otherwise feeling good. [facility] Medical History Diverticulosis Mild major depression Right femoral fracture Neck pain BMI 34.0-34.9,adult Leukopenia Sleep apnea Liver cyst Obesity (BMI 30-39.9) History of small bowel obstruction Lumbar degenerative disc disease Hematuria Migraines IBS (irritable bowel syndrome) Anemia Arthritis Hypothyroid GERD (gastroesophageal reflux disease) Surgical History History of surgical removal of skin lesion History of ankle surgery History of surgery History of hand surgery Hx of foot surgery History of esophagogastroduodenoscopy (EGD) History of surgery H/O hernia repair History of endometrial ablation H/O tubal ligation History of delivery History of bladder surgery Hx of colonoscopy (~07/06/23) History of back surgery H/O: hysterectomy History of bilateral knee replacement Family History Father FH: prostate cancer Mother Breast cancer Bladder cancer Social History Household Members: None Housing: Apartment Are you a primary post acute care registered nurse to a significant other at home: No 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 have visiting nurse or other home services: Yes Alcohol intake: never Comment: medicated, see MAR Patient Tobacco Use Status: Former Tobacco user Tobacco use type: Cigarette Years Smoked: 24 e-Cigarette/Vaping Use: Never Used Second Hand Smoke Exposure: No Substance Use Type: Methamphetamine service: No Current occupational status: unemployed and disabled Cognitive needs: Yes Hearing needs: No Vision needs: Yes Review of Systems Const All systems reviewed & are unremarkable except as noted in HPI and below Physical Exam Extrem Other: Left hip incision is clean dry and intact. She has some staple erythema otherwise surrounding skin is not red. No significant swelling. She has good range of motion without pain. Neurovascularly intact. Assessment & Plan Assessment & Plan (1) Status post total replacement of left hip: Code(s): Z96.642 - Presence of left artificial hip joint Category: Surgical Plan: Austin removed today Steri-Strips applied. She will continue with physical therapy for gait training and strengthening exercises. I stressed the importance of completing the antibiotics as I feel she may have had some superficial cellulitis otherwise no evidence of deep joint infection. She will return to see us back in [address] Gibbs, sooner if needed. Of note, our nurse navigator is contacting the rehab facility to get a copy of the discharge summary along with information on the events leading up to what they considered an infection and their treatment. They also need to be made aware that in any even there are concerns with the patient's, they need to contact us immediately. Coding Level of Care Code Global (25201) Diagnoses Status post total replacement of left hip Z96.642
== END 2024-12-28 13:38 | disposition home or self-care (01) ==
LOC: HO.HOS 12:35
PROVIDERS: PCP Internal Medicine; Visit Provider Physician Assistant
DX: Z96.642 Presence of left artificial hip joint (principal)
CPT/HCPCS: 99024

== ENCOUNTER → 2024-12-28 12:34 | Outpatient (BNVA) | payer OTHER, SELFPAY | PROVIDERS: PCP Internal Medicine; Visit Provider Physician Assistant | DX: Z47.1 Aftercare following joint replacement surgery (principal); Z79.2 Long term (current) use of antibiotics; Z96.642 Presence of left artificial hip joint | CPT/HCPCS: 99212 ==

== ENCOUNTER 2025-01-08 11:41 | Outpatient (REF) | payer OTHER, SELFPAY ==
--- OUTSIDE RECORDS SUMMARY | 2025-01-08 12:55 | XMS_ITS | Clinical Summary ---
Author Organization [employer] Address [address] [place] [address] Care Team Providers Care Printing Equipment Mechanic Name Role Phone Unavailable Primary Care [...] 12/25/2021, 08/18/2021, Additional history exists Influenza Vaccine (Season Ended) 2025 RSV Patients and Patients Aged 60 years [...] patient's age to complete this topic Insurance [place], [place] [facility] ONE CARE < 65 [place] [id number]
== END 2025-01-08 11:42 | disposition home or self-care (01) ==
LOC: HO.MAMMO 11:41
PROVIDERS: PCP Internal Medicine; Visit Provider Internal Medicine
DX: Z12.31 Encounter for screening mammogram for malignant neoplasm of breast (principal)
CPT/HCPCS: 77063; 77067

== ENCOUNTER → 2025-01-08 12:00 | Outpatient (BNV) | payer OTHER, SELFPAY | PROVIDERS: PCP Internal Medicine; Visit Provider Internal Medicine | DX: Z12.31 Encounter for screening mammogram for malignant neoplasm of breast (principal) | CPT/HCPCS: 77063; 77067 ==

== ENCOUNTER 2025-01-18 11:47 | Outpatient (REF) | payer OTHER, SELFPAY ==
--- NOTE | ~2025-01-18 | XR_ITS ---
EXAMINATION: XR HIP, LEFT CLINICAL INFORMATION: M25.559 - Pain in unspecified hip COMPARISON: January 28, 2022. TECHNIQUE: Two views of the left hip. FINDINGS: There is a metallic prosthesis with an acetabular and femoral component well-seated in the osseous structures. The metallic prosthesis is intact. There is normal alignment. There is no gross loosening. Sclerotic articular surface of the right acetabulum and right femoral head with volume loss and joint space narrowing as well as subchondral cyst formation. XR/XR hip LT min 2V IMPRESSION: Total left hip arthroplasty prosthesis, intact without fracture or dislocation nor loosening. Severe osteoarthrosis, right hip Electronically signed by: Patrice Flores MD 01/18/2025 03:44 PM EDT
--- OUTSIDE RECORDS SUMMARY | 2025-01-18 13:55 | XMS_ITS | Continuity of Care Document ---
Author Organization [facility] Address [address] [place] [address] [address] [place] [address] Phone Care Team Providers Care Shaft Tender Name Role Phone Brooks WHITTEN, DOMINIC, Michael [...] Providers Copied on Encounter [facility], [address] [place] [address] Dr [address]Suite Alanna Buck MD, [id number], tel:[phone] NIEVES Mondragon No Information 4 Brooks WHITTEN RVT, RPVI Robert. [address] [place] [address], [facility] [place], [id number] , [place]. tel:[phone] [facility], [address] [place] [address] Dr [address] 1000[facility] [address]Alanna [place], [id number], tel:[phone] NIEVES Guido [place] [facility] No Information 4 Brooks WHITTEN RVT, RPVI Robert. [address] [facility], [address], [facility] [place], [id number] , [place]. tel:[phone] Offic Cons New/estab Mod 40 Mi- CT & [place] [facility], [address] [place] [address] [address], [place], [id number], tel:[phone] [facility] Varicose veins of bilateral lower extremities with painPain in right legPain in left legRestless legs syndromeVenous insufficiency (chronic) (peripheral)Loc alized edema 4 Brooks WHITTEN RVT, FRANCHESCA Rodriguez. [address] [place] [address], [place], [place], [id number] , . tel:[phone] [facility], [address] [place] [address] Dr [address], [place], [id number], tel:[phone] [facility] Chronic venous hypertension (idiopathic) with other complications of bilateral lower extremity 4 Brooks WHITTEN RVT, FRANCHESCA Rodriguez. [address] [place] [address], [place], [place], [id number] , . tel:[phone] Referring Provider: Michael Guy MD, DOMINIC, FRANCHESCA, [address] [place] [address], [place], [address] . tel:[phone] Family History Family Member Type Diagnosis Age At Onset No Information Payers Payer name Insurance type Covered alliance party ID Authorsuea skyler(s) [facility] CI [id number] Social History Type Description Quantity Date Captured [...]
== END 2025-01-18 11:48 | disposition home or self-care (01) ==
LOC: HO.HOSX 11:47
PROVIDERS: Visit Provider Orthopaedic Surgery
DX: Z47.1 Aftercare following joint replacement surgery (principal); M16.11 Unilateral primary osteoarthritis, right hip; S72.91XD Unspecified fracture of right femur, subsequent encounter for closed fracture with routine healing; Z96.642 Presence of left artificial hip joint
CPT/HCPCS: 73502; 99212

== ENCOUNTER 2025-01-18 13:42 | Outpatient (AMB) | payer OTHER, SELFPAY ==
--- NOTE | 2025-01-18 13:45 | MHC.OFFVIS ---
Intake Visit Reasons: 6WK PO: R NAYA w/NE 12/12/24 Intake Note: Jr is a 64 year old female who presents today for a post operative appointment about 6 weeks s/p LT NAYA on 12/12/24. Patient reports that she is doing well, continues to have pain in the Right hip Allergies amoxicillin [Augmentin] Allergy (Intermediate, Verified 01/18/25 13:59) rash cat dander Allergy (Intermediate, Verified 01/18/25 13:59) Nasal congestion clavulanic acid [Augmentin] Allergy (Intermediate, Verified 01/18/25 13:59) rash trazodone [TRAZODONE] Allergy (Intermediate, Verified 01/18/25 13:59) Shortness of Breath HPI HPI 6WK PO: R NAYA w/NE 12/12/24: Details: Jr is a 64 year old female who presents today for a post operative appointment about 6 weeks s/p LT NAYA on 12/12/24. Patient reports that she is doing well, continues to have pain in the Right hip. She primarily complains about right hip pain. She had severe osteoarthritis of the left hip. On her right side potential surgery in raises the question of the intramedullary lito in her femur. She uses a walker and complains of right groin pain. On her left she states she has been able to walk comfortably without difficulty. She has no complaints. [facility] Medical History (Updated 01/19/25 @ 09:24 by Sinan Gibbs MD) Right femoral fracture Diverticulosis Mild major depression Neck pain BMI 34.0-34.9,adult Leukopenia Sleep apnea Liver cyst Obesity (BMI 30-39.9) History of small bowel obstruction Lumbar degenerative disc disease Hematuria Migraines IBS (irritable bowel syndrome) Anemia Arthritis Hypothyroid GERD (gastroesophageal reflux disease) Surgical History History of surgical removal of skin lesion History of ankle surgery History of surgery History of hand surgery Hx of foot surgery History of esophagogastroduodenoscopy (EGD) History of surgery H/O hernia repair History of endometrial ablation H/O tubal ligation History of delivery History of bladder surgery Hx of colonoscopy (~02/11/23) History of back surgery H/O: hysterectomy History of bilateral knee replacement Family History Father FH: prostate cancer Mother Breast cancer Bladder cancer Social History Household Members: None Housing: Apartment Are you a primary career resource technician to a significant other at home: No 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 have visiting nurse or other home services: Yes Alcohol intake: never Comment: medicated, see MAR Patient Tobacco Use Status: Former Tobacco user Tobacco use type: Cigarette Years Smoked: 24 e-Cigarette/Vaping Use: Never Used Second Hand Smoke Exposure: No Substance Use Type: Methamphetamine service: No Current occupational status: unemployed and disabled Cognitive needs: Yes Hearing needs: No Vision needs: Yes Physical Exam Extrem Other: Incision clean dry and intact on the left. No pain with hip range of motion. Mild Trendelenburg gait but difficult to assess given the contralateral practice function. On her right she has positive impingement and minimal motion when ranging of the hip. Right knee with excellent motion. Well-healed incisions. No pain with range of motion right knee. Results Reviewed Results Reviewed: I personally reviewed relevant radiographs. Left NAYA in expected post operative position with no hardware complications or evidence of loosening On the right she has severe osteoarthritis of the right hip. There is a presence of a retrograde femoral nail that is approximately 160 mm distal to the calcar. This leaves less than 2 cortical diameters between the potential femoral prosthesis in the retrograde nail. OA Assessment & Plan Assessment & Plan (1) Status post total replacement of left hip: Code(s): Z96.642 - Presence of left artificial hip joint Category: Surgical Plan: Left hip is doing very well. Continue progressive strengthening and ambulation with a walker. PT as tolerated but she has been hesitant to start. (2) Osteoarthritis of right hip: Code(s): M16.11 - Unilateral primary osteoarthritis, right hip Category: Medical Plan: Severe right hip osteoarthritis. She definitely needs a hip replacement but I am concerned that there is not enough room between the retrograde nail and the prosthesis. (3) Right femoral fracture: Comment: w/surgical repair Code(s): S72.91XA - Unspecified fracture of right femur, initial encounter for closed fracture Category: Medical Plan: Healed femur fracture with retained orthopedic hardware. I recommend removal of hardware prior to consideration of a right hip replacement. I think this is the safest thing do. I explained the rationale to her and she agrees. I explained the risks benefits, alternatives to her including the risk of infection, fracture, need for additional surgery, bleeding. She expressed understanding and we will proceed forward accordingly. (4) Retained orthopedic hardware: Code(s): Z96.9 - Presence of functional implant, unspecified Category: Medical Plan: Retained orthopedic hardware. I recommend removal of hardware. I think this will decrease the risk of periprosthetic fracture. Orders: Orders XR pelvis 1-2V 01/18/25 M25.559 - Pain in unspecified hip Coding Level of Care Code Est Pt Level 4 (79449) Global (07799) Diagnoses Status post total replacement of left hip Z96.642 Osteoarthritis of right hip M16.11 Right femoral fracture S72.91XA Retained orthopedic hardware Z96.9
== END 2025-01-18 15:17 | disposition home or self-care (01) ==
PROVIDERS: PCP Internal Medicine; Visit Provider Orthopaedic Surgery
DX: Z47.1 Aftercare following joint replacement surgery (principal); Z96.642 Presence of left artificial hip joint; M16.11 Unilateral primary osteoarthritis, right hip; S72.91XA Unspecified fracture of right femur, initial encounter for closed fracture; Z96.9 Presence of functional implant, unspecified
CPT/HCPCS: 99024; 99214

== ENCOUNTER → 2025-01-18 13:46 | Outpatient (BNV) | payer OTHER, SELFPAY | PROVIDERS: Visit Provider Radiology Diagnostic Radiology | DX: Z96.642 Presence of left artificial hip joint (principal) | CPT/HCPCS: 73502 ==

== ENCOUNTER 2025-01-23 15:24 | Outpatient (REF) | payer OTHER, SELFPAY ==
--- NOTE | ~2025-01-23 | US_ITS ---
EXAMINATION: US SOFT TISSUE HEAD AND/OR NECK CLINICAL INFORMATION: Palpable abnormality left lateral neck. COMPARISON: None available. TECHNIQUE: Linear transducer hines-scale and color Doppler examination with attention to the palpable abnormality in the left lateral neck. FINDINGS: No abnormal mass, fluid collection, cyst, dermal lesion, or lymph node is identified in the region of the left neck as identified by the patient. Only normal subcutaneous structures are identified. US/US soft tiss head and/or neck IMPRESSION: No sonographic abnormality to correlate with the palpable focus left neck. Electronically signed by: Neftali Sosa MD 01/23/2025 04:20 PM EDT
[2025-01-23 17:49] LABS: Alanine Aminotransferase 28 U/L (0-31); Albumin Level 4.2 g/dL (3.5-5.0); Alkaline Phosphatase 106 U/L (39-117); Anion Gap 11 (12-20); Aspartate Amino Transferase 29 U/L (5-31); Bilirubin Total 0.3 mg/dL (0.0-1.0); Blood Urea Nitrogen 19 mg/dL (9-16); Calcium 9.9 mg/dL (8.4-10.2); Carbon Dioxide 28 mmol/L (22-29); Chloride 107 mmol/L (96-108); Cholesterol 230 mg/dL (<200); Estimated Glomerular Filt Rate > 60; Glucose Fasting 77 mg/dL (60-99); HDL Cholesterol 49 mg/dL (>40); LDL Cholesterol Calculated 156 mg/dL (<100); Potassium 4.6 mmol/L (3.3-5.1); Sodium 141 mmol/L (135-145); Total Protein 6.8 g/dL (6.5-8.0); Triglycerides 127 mg/dL (<150)
[2025-01-23 17:54] LABS: Thyroid Stimulating Hormone 0.07 uIU/mL (0.32-4.0)
--- OUTSIDE RECORDS SUMMARY | 2025-01-23 17:56 | XMS_ITS | Clinical Summary ---
Author Organization [employer] Address [address] [facility] [address] [place] [address] Care Team Providers Care Stringed Instrument Tuner Name Role Phone Unavailable Primary Care Provider [...] patient's age to complete this topic Insurance [place], [place] [facility] ONE CARE < 65 [place] [id number]
== END 2025-01-23 15:25 | disposition home or self-care (01) ==
LOC: HO.US 15:24
PROVIDERS: PCP Internal Medicine; Visit Provider Internal Medicine
DX: Z01.818 Encounter for other preprocedural examination (principal); E06.3 Autoimmune thyroiditis; E03.8 Other specified hypothyroidism; E78.5 Hyperlipidemia, unspecified; R22.1 Localized swelling, mass and lump, neck
CPT/HCPCS: 36415; 76536; 80053; 80061; 84443

== ENCOUNTER → 2025-01-23 15:27 | Outpatient (BNV) | payer OTHER, SELFPAY | PROVIDERS: PCP Internal Medicine; Visit Provider Radiology Diagnostic Radiology | DX: R22.1 Localized swelling, mass and lump, neck (principal) | CPT/HCPCS: 76536 ==

== ENCOUNTER 2025-02-08 13:00 | Outpatient (RCR) | payer OTHER, SELFPAY ==
--- NOTE | 2025-01-19 14:59 | MHC.PT.EP ---
[facility] [place] [facility] [place] [facility] [place] Office [address] Samm Richardson [address] [phone] F: [phone] F: [phone] F: [phone] F: [phone] Physical Therapy Plan of Care Date of Evaluation: 01/19/25 Date of Surgery: 12/12/24 Diagnosis: This is a 64 yo female presenting to skilled PT with a script for L NAYA. Assessment: This is a 64 yo female presenting to skilled PT with a script for L NAYA. Patient had a L NAYA posterior approach on 12/12/24 at [facility]. She had low BP after surgery and she was in the hospital for 1 week. She then went to [facility] for rehab and she also acquired what she thinks was cellulitis. She went home after 1 week there, did not have home PT and came to outpatient instead. L hip pain is located L side low back and at the incision; achy in nature. Pain increases when she lays on this side, walking, standing and stairs. At this time her R hip is the worse (see below). Assessment reveals pain that ranges from up to a 8/10 at the worst. Patient demos decreased B LE ROM, strength of B LE's, TTP at incision and lateral hip, decreased gait and balance and impaired posture with valgus knees, forward head and trunk as well as rounded shoulders. She is further impaired by complications with the R LE as well, the last note from the MD reports that the Healed femur fracture with retained orthopedic hardware. I recommend removal of hardware prior to consideration of a right hip replacement. I think this is the safest thing do. I explained the rationale to her and she agrees. I explained the risks benefits, alternatives to her including the risk of infection, fracture, need for additional surgery, bleeding. She expressed understanding and we will proceed forward accordingly. This is planned for 03/07. Based on functional limitations, impaired QOL and pain tolerance patient is a good candidate for skilled PT 2x/wk for 6 wks. Frequency and Duration: The patient will be seen 2x/wk for 6 wks Short Term Goals: (in 2 weeks) Patient will demo good understanding and performance of quad set vs glut set in multiple different planes without cues from PT Patient will be I in HEP Patient will demo proper understanding of stairs Television Parts Tester Goals: (in 6 weeks) Patient will report 75% improvement in balance and strength of LLE as evidenced by reports no of falls or buckling in LE Patient will improve LEFs by 10 points Patient will demo WFL AROM of hip, knee and ankle Patient will tolerate weaning to the cane Patient will understand post op precautions and demo safe movements with transfers, chairs and bed Treatment Plan: Modalities to reduce pain, spasms and effusion. Manual therapy to restore motion and function. Therapeutic exercise to improve strength and flexibility. Neuromuscular re-education for posture and balance. Therapeutic activities to return to functional activities of daily living. Electronically signed by: Maggy Whitlock PT Please sign and return to therapist. Thank you for your referral.
--- NOTE | 2025-03-07 07:36 | MHC.PT.DC ---
[facility] [place] Office [place] [facility] [place] Office [address] [phone] F: [phone] F: [phone] F: [phone] F: [phone] Physical Therapy Discharge Report Diagnosis: This is a 64 yo female presenting to skilled PT with a script for L NAYA. Date of Surgery: 12/12/24 Date of Evaluation: 01/19/25 Date of Discharge: 03/07/25 Treatments to Date: 3 Cancellations to Date: 0 No Shows to Date: 0 Discharge Status: Independent with HEP Patient Elected to Stop Discharge Summary: Patient came to 3 sessions of PT. Self dc'd herself after that due to R LE pain. Currently scheduled for surgery once more. DC to HEP and will plan to eval when medically ready again. Electronically signed by: Maggy Whitlock, PT Please sign and return to therapist. Thank you for your referral.
== END 2025-03-07 07:36 | disposition home or self-care (01) ==
LOC: HO.PTCHIC 13:00
PROVIDERS: PCP Internal Medicine; Visit Provider Physician Assistant
DX: Z47.1 Aftercare following joint replacement surgery (principal); Z96.642 Presence of left artificial hip joint
CPT/HCPCS: 97110; 97162

== ENCOUNTER 2025-03-01 09:09 | Outpatient (REF) | payer OTHER, SELFPAY ==
--- OUTSIDE RECORDS SUMMARY | 2024-02-03 03:54 | XMS_ITS | Continuity of Care Document ---
Author Organization [facility] Address [address] [place] [address] Dr [address] [place] [address] Phone Care Team Providers Care Card Feeder Name Role Phone Brooks WHITTEN, DOMINIC, Michael [...] Providers Copied on Encounter [facility], [address] [place] [address] Dr [address] Alanna Buck MD, [id number], tel:[phone] NIEVES Mondragon No Information 4 Brooks WHITTEN RVT, RPVI Robert. [address] [place] [address], [facility] [place], [id number] , [place]. tel:[phone] [facility], [address] [place] [address] Dr [address]o 1000[facility] 1000Alanna [place], [id number], tel:[phone] NIEVES Guido [place] [facility] No Information 4 Brooks WHITTEN RVT, RPVI Robert. [address] [facility], [address], [facility] [place], [id number] , [place]. tel:[phone] Offic Cons New/estab Mod 40 Mi- CT & [place] [facility], [address] [place] [address] Dr [address], [place], [id number], tel:[phone] [facility] Varicose veins of bilateral lower extremities with painPain in right legPain in left legRestless legs syndromeVenous insufficiency (chronic) (peripheral)Loc alized edema 4 Brooks WHITTEN RVT, FRANCHESCA Rodriguez. [address] [place] [address], [place], [place], [id number] , . tel:[phone] [facility], [address] [place] [address] Dr [address] 1000Alanna [place], [id number], tel:[phone] [facility] Chronic venous hypertension (idiopathic) with other complications of bilateral lower extremity 4 Brooks WHITTEN RVT, FRANCHESCA Rodriguez. [address] [place] [address], [place], [place], [id number] , . tel:[phone] Referring Provider: Michael Guy MD, DOMINIC, FRANCHESCA, [address] [place] [address], [place], [address] . tel:[phone] Family History Family Member Type Diagnosis Age At Onset No Information Payers Payer name Insurance type Covered alliance party ID Authorsuea skyler(s) [facility] CI [id number] Social History Type Description Quantity Date Captured [...]
--- NOTE | ~2025-03-01 | XR_ITS ---
EXAMINATION: XR FEMUR, RIGHT CLINICAL INFORMATION: Z87.81 - Personal history of (healed) traumatic fracture COMPARISON: March 13, 2020. TECHNIQUE: AP and lateral views of the right femur were obtained. FINDINGS: Intramedullary lito placed in the distal diaphysis to the distal epiphysis of the femur anchor with the metallic screws in the proximal and distal segments. Old traumatic deformity distal diaphysis/metaphysis of the femur. No gross loosening. There is a metallic prosthesis with a femoral and tibial plateau component well-seated in the osseous structures. Moderate to severe degenerative changes in the right coxofemoral joint. No acute cortical disruption. XR/XR femur RT 2V IMPRESSION: Status post open reduction intestinal fixation of the prior fracture distal diaphysis metaphysis of the femur without acute fracture or loosening. Moderate to severe osteoarthrosis, right hip Status post total right knee arthroplasty.. Electronically signed by: Patrice Flores MD 03/01/2025 02:55 PM EDT
--- OUTSIDE RECORDS SUMMARY | 2025-03-02 09:25 | XMS_ITS | Clinical Summary ---
Author Organization [employer] Address [address] [facility] [address] [place] [address] Care Team Providers Care Product Strategy Director Name Role Phone Unavailable Primary Care Provider [...] patient's age to complete this topic Insurance [place], [place] [facility] ONE CARE < 65 [place] [id number]
--- OUTSIDE RECORDS SUMMARY | 2025-03-02 09:26 | XMS_ITS | Patient Health Record ---
Author Organization [facility] Address [address] [place] [address] Care Team Providers Care Outpatient Pharmacy Manager Name Role Phone Brianda Cotton Primary Care Provider Moris Gonsalez Jr Unavailable Reason For Referral No Information Medications Medication SIG (Take, Route, Frequency, Duration) Notes Start Date End Date Status Fluoxetine 60 once a day Activ e Social History Tobacco Use: Social History Observation Description Date Details (start date - stop date) Former Smoker NA - NA Tobacco Use/Smoking Question Answer Notes Patient is a former smoker How long has it been since you last smoked? > 10 years Alcohol Screen Question Answer Notes Did you have a drink containing alcohol in the p ast year? 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
--- OUTSIDE RECORDS SUMMARY | 2025-03-02 09:26 | XMS_ITS | Clinical Summary ---
Author Organization [facility] Address [address] [place] [address] Phone Care Team Providers Care Supervisor Refining Name Role Phone Brianda Cotton MD Primary Care Provid er Pcp, Unknown Unavailable Unavailable Allergies Active Allergy Reactions Criticality Noted Date Comments Amoxicillin-Pot Clavulanate 06/03/20 22 rash Trazodone 06/03/2022 Difficulty breathing Encounters Date Type Department Care Team Description 12/20/2024 Orders Only [facility] [address] [place] [id number] Homehealth, Interface ProviderMD from Last 3 Months [...] file Medical Devices Not on file Insurance [facility] ONE CARE MEDICARE REPLACEMENT MEDICARE PART A & B [facility] ONE CARE MEDICARE REPLACEMENT MEDICARE PART A & B [facility] ONE CARE MEDICARE REPLACEMENT MEDICARE PART A & B [facility] ONE CARE MEDICARE REPLACEMENT MEDICARE PART A & B [facility] ONE CARE MEDICARE REPLACEMENT MEDICARE PART A & B [facility] C[facility] MEDICARE REPLACEMENT MEDICARE PART A & B [facility] ONE CARE MEDICARE REPLACEMENT [facility] MEDICARE REPLACEMENT [facility] MEDICARE REPLACEMENT MEDICARE REPLACEMENT MEDICARE [place] [address] [address] [place] [address] [place] [address] MEDICARE REPLACEMENT MEDICARE [place] [address] [place] [address] MEDICARE REPLACEMENT Care Teams Supervisor Refining Relationship Specialty Start Date End Date Brianda Cotton MD [address] [place] [address] PCP - General Internal Medicine 12/21/24 Pcp, Unknown 12/21/24 Additional Source Comments The information contained in this document represents components of the legal health record. It is not the complete legal health record.[facility]
== END 2025-03-01 09:10 | disposition home or self-care (01) ==
LOC: HO.HOSX 09:09
PROVIDERS: Visit Provider Physician Assistant
DX: S72.91XA Unspecified fracture of right femur, initial encounter for closed fracture (principal); I95.81 Postprocedural hypotension; Z96.89 Presence of other specified functional implants
CPT/HCPCS: 73552; 99212

== ENCOUNTER 2025-03-01 13:54 | Outpatient (AMB) | payer OTHER, SELFPAY ==
--- OUTSIDE RECORDS SUMMARY | 2025-03-01 13:57 | XMS_ITS | Clinical Summary ---
Author Organization [employer] Address [address] [facility] [address] [place] [address] Care Team Providers Care Pelota Maker Name Role Phone Unavailable Primary Care Provider [...] 08/18/2021, Additional history exists Influenza Vaccine (#1) 2025 RSV Patients and Patients Aged 60 [...] patient's age to complete this topic Insurance [place], [place] [facility] ONE CARE < 65 [place] [id number]
--- OUTSIDE RECORDS SUMMARY | 2025-03-01 13:57 | XMS_ITS | Clinical Summary ---
Author Organization [facility] Address [address] [place] [address] Phone Care Team Providers Care Telephone Cleaner Name Role Phone Brianda Cotton MD Primary Care Provid er Pcp, Unknown Unavailable Unavailable Allergies Active Allergy Reactions Criticality Noted Date Comments Amoxicillin-Pot Clavulanate 06/03/20 22 rash Trazodone 06/03/2022 Difficulty breathing Encounters Date Type Department Care Team Description 12/20/2024 Orders Only [facility] [address] [place] [id number] Homehealth, Interface ProviderMD from Last 3 Months Immunizations Immunization Administration Dates Next Due Tdap 06/03/2022 Social History Tobacco Use Types Packs/Day Years Used Date Smoking Tobacco: Never Assessed Education Answer Date Recorded Are you interested in more education? Not on wilder e 12/20/2024 Are you concerned about learning? Not on file 12/20/2024 No 12/20/2024 No 12/20/2024 Digital Access Answer Date Recorded No 12/20/2024 No 12/20/2024 Reliable internet access at home? Not on file 12/20/2024 Device with a working camera? Not on file Comments Unknown Sex and Gender Information Value Date Recorded Sex Assigned at Not on file Legal Sex Female 4:21 PM EDT Gender Identity Not on file Sexual Orientation Not on file Last Filed Vital Signs Vital Sign Reading Time Taken Comments Blood Pressure 119/75 06/03/2022 10:33 PM EDT Pulse 70 06/03/2022 10:33 PM EDT Temperature 36 C (96.8 F) 06/03/2022 10:33 PM EDT Respiratory Rate 18 06/03/2022 10:33 PM EDT Oxygen Saturation 98% 06/03/2022 10:33 PM EDT Inhaled Oxygen Concentration - - Weight 102.1 kg (225 lb) 06/03/2022 7:44 PM EDT Height 167.6 cm (5' 6 ) 06/03/2022 7:44 PM EDT Body Mass Index 36.32 06/03/2022 7:44 PM EDT Plan of Treatment Not on file Medical Devices Not on file Insurance [facility] ONE CARE MEDICARE REPLACEMENT MEDICARE PART A & B [facility] ONE CARE MEDICARE REPLACEMENT MEDICARE PART A & B [facility] ONE CARE MEDICARE REPLACEMENT MEDICARE PART A & B [facility] ONE CARE MEDICARE REPLACEMENT MEDICARE PART A & [facility] ONE CARE MEDICARE REPLACEMENT MEDICARE PART A & [facility] C[facility] MEDICARE REPLACEMENT MEDICARE PART A & B [facility] ONE CARE MEDICARE REPLACEMENT [facility] MEDICARE REPLACEMENT [facility] MEDICARE REPLACEMENT MEDICARE REPLACEMENT MEDICARE REPLACEMENT [address] [address] [place] [place] [address] MEDICARE REPLACEMENT MEDICARE REPLACEMENT [place] [place] [address] MEDICARE REPLACEMENT Care Teams Telephone Cleaner Relationship Specialty Start Date End Date Brianda Cotton MD [address] [place] [address] PCP - General Internal Medicine 12/21/24 Pcp, Unknown 12/21/24 Additional Source Comments The information contained in this document represents components of the legal health record. It is not the complete legal health record.[facility]
--- NOTE | 2025-03-01 14:09 | A.OFFVIS_ITS ---
Vital Signs 03/01/25 14:14 Height 5 ft 7 in Weight 241 lb BMI 37.7 BP 110/58 L Blood Pressure Location Rt brachial Position Sitting Pulse 78 Pulse Source Pulse Oximeter Pulse Oximetry (%) 95 Oxygen Delivery Method Room Air Intake Visit Reasons: Pre-Rt Femur MARU 03/07/25 Intake Note: Jr is a 64 year old female who presents today for a pre op appointment for her right Femur MARU 03/07/25 NE. Patient was given the pain management form. Allergies amoxicillin (Augmentin) Allergy (Intermediate, Verified 03/01/25 14:15) rash cat dander Allergy (Intermediate, Verified 03/01/25 14:15) Nasal congestion clavulanic acid (Augmentin) Allergy (Intermediate, Verified 03/01/25 14:15) rash trazodone (TRAZODONE) Allergy (Intermediate, Verified 03/01/25 14:15) Shortness of Breath HPI HPI Pre-Rt Femur MARU 03/07/25: Details: Ms. Parekh is a 64-year-old female who presents to the office today for her history and physical examination pending right femur removal of hardware tentatively scheduled for 03/07/[address] Gibbs. Patient is currently using a walker to assist with ambulation. [facility] Medical History (Updated 02/21/25 @ 12:16 by Smitha Guy RN) History of revision of total replacement of right knee joint Back pain Depression Bronchitis Asthma Right femoral fracture Diverticulosis Mild major depression Neck pain BMI 34.0-34.9,adult Leukopenia Sleep apnea Liver cyst Obesity (BMI 30-39.9) History of small bowel obstruction Lumbar degenerative disc disease Hematuria Migraines IBS (irritable bowel syndrome) Anemia Arthritis Hypothyroid GERD (gastroesophageal reflux disease) Surgical History (Updated 02/21/25 @ 12:16 by Smitha Guy RN) Hx of elbow surgery History of surgical removal of skin lesion History of ankle surgery History of surgery History of hand surgery Hx of foot surgery History of esophagogastroduodenoscopy (EGD) History of surgery H/O hernia repair History of endometrial ablation H/O tubal ligation History of delivery History of bladder surgery Hx of colonoscopy (~02/11/23) History of back surgery H/O: hysterectomy History of bilateral knee replacement Family History Father FH: prostate cancer Mother Breast cancer Bladder cancer Social History Household Members: None Housing: Apartment Are you a primary customer care consultant to a significant other at home: No 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 have visiting nurse or other home services: Yes Alcohol intake: never Comment: medicated, see MAR Patient Tobacco Use Status: Former Tobacco user Tobacco use type: Cigarette Years Smoked: 24 e-Cigarette/Vaping Use: Never Used Second Hand Smoke Exposure: No Substance Use Type: Methamphetamine service: No Current occupational status: unemployed and disabled Cognitive needs: Yes Hearing needs: No Vision needs: Yes Review of Systems Const All systems reviewed & are unremarkable except as noted in HPI and below Physical Exam Vital Signs: Last Vital Signs Pulse 78 03/01/25 14:14 BP 110/58 L 03/01/25 14:14 Pulse Ox 95 03/01/25 14:14 Oxygen Delivery Method Room Air 03/01/25 14:14 BMI result Body Mass Index 37.7 Const General: cooperative, healthy appearing and no acute distress Resp Effort & Inspection: normal respiratory effort and able to speak in complete sentences Extrem Other: Right hip and knee skin is clean dry and intact. Patient walks with an antalgic gait with the use of a walker. Minimal internal and external rotation of the right hip. Full painless range of motion of the knee. NVI. Assessment & Plan Assessment & Plan (1) Right femoral fracture: Comment: w/surgical repair Code(s): S72.91XA - Unspecified fracture of right femur, initial encounter for closed fracture Category: Medical (2) Retained orthopedic hardware: Code(s): Z96.9 - Presence of functional implant, unspecified Category: Medical Plan Ms. Parekh is a 64-year-old female who presents to the office today for her history and physical examination pending right femur removal of hardware tentatively scheduled for 03/07/[address] Gibbs. Patient is currently using a walker to assist with ambulation. I discussed in detail the procedure and what to expect pre and post operatively. We discussed the risks, benefits and alternatives to the surgery as well as the rehabilitation course. The risks; which include, but are not limited to infection, bleeding, nerve injury, ongoing pain, swelling, and stiffness, perioperative risk of injury to bones and soft tissues, and blood clots. In addition, I had the patient review the consent form before signing. Patient acknowledged they had no questions at this time and understood the risks associated with the procedure. I?ve answered all questions and with their understanding they have consented to move forward with removal of hardware from right femur with Dr. Gibbs. Of note, the patient was admitted for observation after a prior surgical procedure due to postoperative hypotension. Orders: Orders XR femur RT 2V 03/01/25 Z87.81 - Personal history of (healed) traumatic fracture Coding Level of Care Code Global (49221) Diagnoses Right femoral fracture S72.91XA Retained orthopedic hardware Z96.9
[2025-03-01 14:14] VITALS: BP 110/58; PULSE 78; O2SAT 95; BMI 37.7
== END 2025-03-01 14:50 | disposition home or self-care (01) ==
LOC: HO.HOS 13:54
PROVIDERS: PCP Internal Medicine; Visit Provider Physician Assistant
DX: S72.91XA Unspecified fracture of right femur, initial encounter for closed fracture (principal); Z96.9 Presence of functional implant, unspecified
CPT/HCPCS: 99024

== ENCOUNTER → 2025-03-01 13:56 | Outpatient (BNV) | payer OTHER, SELFPAY | PROVIDERS: Visit Provider Radiology Diagnostic Radiology | DX: M16.11 Unilateral primary osteoarthritis, right hip (principal) | CPT/HCPCS: 73552 ==

== ENCOUNTER 2025-03-02 10:20 | Outpatient (REF) | payer OTHER, SELFPAY ==
--- OUTSIDE RECORDS SUMMARY | 2024-02-03 03:54 | XMS_ITS | Continuity of Care Document ---
Author Organization [facility] Address [address] [place] [address] [address] [place] [address] Phone Care Team Providers Care Time Study Technician Name Role Phone Brooks WHITTEN, DOMINIC, Michael SORENSEN Unavailable U navailable Allergies, Adverse Reactions, Alerts Substance Reaction Status Criticality trazodone Active No Information POTASSIUM CLAVULANATE Active No Inf ormation AMOXICILLIN TRIHYDRATE Active No In formation Procedures Procedure Date Offic Cons New/estab Mod 40 Mi- CT & [place] Duplex Scan-extrem Veins; Comp- CT & [place] Advance Directives Directive Yes / No Effective Date File Name No Information Encounters Encounter Description Practice Location Reason(s) For Visit Diagnoses Date Provider Providers Copied on [facility]counter [facility], [address] [place] [address] Dr Cano [address]Suite Alanna Buck MD, [id number], tel:[phone] NIEVES Mondragon No Information 4 Brooks WHITTEN RVT, RPVI Robert. [address] [place] [address], [facility] [place], [id number] , [place]. tel:[phone] [facility], [address] [place] [address] Dr [address]o 1000[facility] 1000Alanna [place], [id number], tel:[phone] NIEVES Guido [place] [facility] No Information 4 Brooks WHITTEN RVT, RPVI Robert. [address] [facility], [address], [facility] [place], [id number] , [place]. tel:[phone] Offic Cons New/estab Mod 40 Mi- CT & [place] [facility], [address] [place] [address] Dr [address], [place], [id number], tel:[phone] [facility] Varicose veins of bilateral lower extremities with painPain in right legPain in left legRestless legs syndromeVenous insufficiency (chronic) (peripheral)Loc alized edema 4 Brooks WHITTEN RVT, FRANCHESCA Rodriguez. [address] [place] [address], [place], [place], [id number] , . tel:[phone] [facility], [address] [place] [address] Dr [address] 1000Alanna [place], [id number], tel:[phone] [facility] Chronic venous hypertension (idiopathic) with other complications of bilateral lower extremity 4 Brooks WHITTEN RVT, FRANCHESCA Rodriguez. [address] [place] [address], [place], [place], [id number] , . tel:[phone] Referring Provider: Michael Guy MD, DOMINIC, FRANCHESCA, [address] [place] [address], [place], [address] . tel:[phone] Family History Family Member Type Diagnosis Age At Onset No Information Payers Payer name Insurance type Covered alliance party ID Authorsuea skyler(s) [facility] CI [id number] Social History Type Description Quantity Date Captured Comments Sex Female Smoking Status No Information Chief Complaint And Reason For Visit No Information Reason For Referral Reason For Referral No Information Plan Of Treatment Date Type Action Status Goal Diet education completed Goal Tobacco cessation counseling completed Referral Ordered: Weight management: Referral to physician timeframe: 3 Months (related to Body mass index (BMI) 38.0-38.9, adult) ordered History Of Present Illness Encounter Date Complaint History Of Prese nt Illness No Information Functional Status Date Functional Assessmen t No Information Instructions Date Instruction Additional Infor mation Patient education booklet given Related to Varicose veins of bilateral lower extremities with pain Pre and post instruc tions reviewed and provided Related to Varicose veins of bilateral lower extremities with pain Lifestyle education Related to B liberty mass index (BMI) 38.0-38.9, adult Giving Encouragement to exercise Related to Body mass index (BMI) 38.0-38.9, adult Diet education Related to Body mass index (BMI) 38.0-38.9, adult Assessments Type Assessment Date No Information Patient Care Teams Name Effective Dates (start - stop) Status Members No Information
--- OUTSIDE RECORDS SUMMARY | 2025-03-03 10:22 | XMS_ITS | Clinical Summary ---
Author Organization [facility] Address [address] [place] [address] Phone Care Team Providers Care Cold Roll Catcher Name Role Phone Brianda Cotton MD Primary Care Provid er Pcp, Unknown Unavailable Unavailable Allergies Active Allergy Reactions Criticality Noted Date Comments Amoxicillin-Pot Clavulanate 06/03/20 22 rash Trazodone 06/03/2022 Difficulty breathing Encounters Date Type Department Care Team Description 12/20/2024 Orders Only [facility] [address] [place] [id number] Homehealth, Interface ProviderMD from Last 3 Months [...] file Medical Devices Not on file Insurance [facility] ONE CARE MEDICARE REPLACEMENT MEDICARE PART A & B [facility] ONE CARE MEDICARE REPLACEMENT MEDICARE PART A & B [facility] ONE CARE MEDICARE REPLACEMENT MEDICARE PART A & B [facility] ONE CARE MEDICARE REPLACEMENT MEDICARE PART A & [facility] ONE CARE MEDICARE REPLACEMENT MEDICARE PART A & B [facility] CARE MEDICARE REPLACEMENT MEDICARE PART A & B [facility] ONE CARE MEDICARE REPLACEMENT [facility] MEDICARE REPLACEMENT [facility] MEDICARE REPLACEMENT MEDICARE REPLACEMENT MEDICARE REPLACEMENT [place] [address] [place] [address] MEDICARE REPLACEMENT MEDICARE REPLACEMENT [place] [address] MEDICARE REPLACEMENT Care Teams Cold Roll Catcher Relationship Specialty Start Date End Date Brianda Cotton MD [address] [place] [address] PCP - General Internal Medicine 12/21/24 Pcp, Unknown 12/21/24 Additional Source Comments The information contained in this document represents components of the legal health record. It is not the complete legal health record.[facility]
--- OUTSIDE RECORDS SUMMARY | 2025-03-03 10:22 | XMS_ITS | Clinical Summary ---
Author Organization [facility] Address [address] [facility] [address] [place] [address] Care Team Providers Care Regulatory Lead Name Role Phone Unavailable Primary Care Provider [...] patient's age to complete this topic Insurance [place] [facility] ONE CARE < 65 [place] [id number]
--- OUTSIDE RECORDS SUMMARY | 2025-03-03 10:22 | XMS_ITS | Patient Health Record ---
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
== END 2025-03-02 10:21 | disposition home or self-care (01) ==
LOC: HO.HOSX 10:20
PROVIDERS: Visit Provider Physician Assistant
DX: Z13.89 Encounter for screening for other disorder (principal)

== ENCOUNTER 2025-03-07 10:40 | Day surgery (SDC) | payer OTHER, SELFPAY ==
[2025-02-21 12:26] VITALS: BP 98/54; PULSE 76; RESP 17; O2SAT 96; BMI 37.7
[2025-02-21 16:02] LABS: Hematocrit 37.7 % (37.0-47.0); Hemoglobin 12.3 g/dl (12.0-16.0); Mean Corpuscular HGB Conc 32.6 g/dl (31.0-35.0); Mean Corpuscular Hemoglobin 29.9 pg (27.0-33.0); Mean Corpuscular Volume 91.5 fL (80.0-98.0); NRBC Abs Auto 0.000 X10*3/uL (0.0-0.012); NRBC Pct Auto 0.0 /100WBC (0.0-0.2); Platelet Count 223 X10*3/uL (160-400); Red Blood Count 4.12 X10*6/uL (4.20-5.50); White Blood Count 5.4 X10*3/uL (4.8-10.8)
--- NOTE | 2025-03-06 09:16 | HO.ANESPROP2 ---
Documented by User: Loren Anders NP 03/06/25 09:18 HPI - Anesthesia Eval Consult details Narrative: 63yo F for Right Removal Orthopedic Hardware of Femur s/p Right Hip Total Replacement, 12/12/24 with GA-ETT 7 Prior to NAYA: No recent illness No CP/SOB with minimal activity d/t hip pain MARLENY: Can't tolerate CPAP GERD: ppi controls Rare bronchitis with albuterol PMFSH Active Problems Active Problems: All Active Problems Retained orthopedic hardware (Acute) Osteoarthritis of right hip (Acute) Status post total replacement of left hip (Acute) Lump in neck (Acute) Pre-op evaluation (Acute) Left hip pain (Acute) Bilateral primary osteoarthritis of hip (Acute) Bilateral hip pain (Acute) Muscle spasm of back (Acute) Left elbow pain (Acute) Gastritis (Acute) Hemorrhoids (Acute) Diverticulosis (Acute) Ingrown toenail (Acute) Lumbar pain (Acute) Physical exam (Acute) Poor historian (Acute) Superficial burn (Acute) Wound (Acute) Upper respiratory tract infection (Acute) Moderate recurrent major depression (Acute) Chronic constipation (Acute) Encounter for screening colonoscopy (Acute) Low TSH level (Acute) Failed back syndrome (Acute) Spondylosis of lumbosacral spine with radiculopathy (Acute) Umbilical hernia (Acute) MARLENY (obstructive sleep apnea) (Acute) Hypothyroid (Acute) Leucopenia (Chronic) Tracheobronchitis (Acute) Right femoral fracture (Acute) Hx of colonoscopy (Acute ~02/11/23) Anemia (Acute) Hypothyroid (Acute) GERD (gastroesophageal reflux disease) (Acute) Hematuria (Acute) Lumbar degenerative disc disease (Acute) History of small bowel obstruction (Acute) Obesity (BMI 30-39.9) (Acute) Liver cyst (Acute) BMI 34.0-34.9,adult (Acute) Neck pain (Acute) Past Medical History Medical History (Updated 02/21/25 @ 12:16 by Smitha Guy RN) History of revision of total replacement of right knee joint Back pain Depression Bronchitis Asthma Right femoral fracture Diverticulosis Mild major depression Neck pain BMI 34.0-34.9,adult Leukopenia Sleep apnea Liver cyst Obesity (BMI 30-39.9) History of small bowel obstruction Lumbar degenerative disc disease Hematuria Migraines IBS (irritable bowel syndrome) Anemia Arthritis Hypothyroid GERD (gastroesophageal reflux disease) Family History Family History Father FH: prostate cancer Mother Breast cancer Bladder cancer Family history of problems with anesthesia: No Surgical History Surgical History (Updated 02/21/25 @ 12:16 by Smitha Guy RN) Hx of elbow surgery History of surgical removal of skin lesion History of ankle surgery History of surgery History of hand surgery Hx of foot surgery History of esophagogastroduodenoscopy (EGD) History of surgery H/O hernia repair History of endometrial ablation H/O tubal ligation History of delivery History of bladder surgery Hx of colonoscopy (~02/11/23) History of back surgery H/O: hysterectomy History of bilateral knee replacement History of Problems with Anesthesia: No Social History Social History Household Members: None Housing: Apartment Are you a primary companion caregiver to a significant other at home: No 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 have visiting nurse or other home services: Yes Alcohol intake: never Comment: COUNTS CORRECT Patient Tobacco Use Status: Former Tobacco user Tobacco use type: Cigarette Years Smoked: 24 e-Cigarette/Vaping Use: Never Used Second Hand Smoke Exposure: No Use of substances other than those prescribed or required for medical reasons: Yes Substance Use Type: Methamphetamine Substance Use Frequency: Daily Have you been hit, kicked, punched, or otherwise hurt by someone within the past year? If so, by whom?: No Are you DNR?: No Advance Directives: No Advance Directives Information Provided: Yes Advance Directives on File: No Patient : No : No Poor oral hygiene: Yes service: No Current occupational status: unemployed and disabled Cognitive needs: Yes Hearing needs: No Vision needs: Yes Meds Allergies Allergy/AdvReac Type Severity Reaction Status Date / Time amoxicillin (Augmentin) Allergy Intermediate rash Verified 03/01/25 14:15 cat dander Allergy Intermediate Nasal Verified 03/01/25 14:15 congestion clavulanic acid (Augmentin) Allergy Intermediate rash Verified 03/01/25 14:15 trazodone (TRAZODONE) Allergy Intermediate Shortness Verified 03/01/25 14:15 of Breath Home Medications ?Medication ?Instructions ?Recorded ?Confirmed ?Last Taken ?Type glucosamine HCl 500 mg tablet 500 mg PO QAM 0202/21/25 06/25/23 05:00 History multivitamin 1 tab PO QAM 10/01/20 02/21/25 06/25/23 05:00 History clonazepam 0.5 mg tablet 0.5 mg PO BID PRN Anxiety 04/04/21 02/21/25 01/27/22 History melatonin 5 mg tablet 5 mg PO BEDTIME 04/04/21 02/21/25 01/27/22 History ascorbic acid (vitamin C) 100 mg 100 mg PO QAM 01/28/22 02/21/25 06/25/23 05:00 History tablet quetiapine 300 mg tablet 600 mg PO BEDTIME 08/05/23 02/21/25 Unknown History venlafaxine 150 mg 150 mg PO QAM 08/05/23 02/21/25 Unknown History capsule,extended release 24 hr venlafaxine 75 mg capsule,extended 75 mg PO QAM 08/05/23 02/21/25 Unknown History release 24 hr meloxicam 15 mg tablet 15 mg PO QAM 12/13/23 02/21/25 Unknown History epinephrine 0.3 mg/0.3 mL 0.3 mg IM ONCE PRN anaphylaxis 03/27/24 02/21/25 Unknown History injection, auto-injector fluticasone propionate 50 1 spray intranasal DAILY PRN 03/27/24 02/21/25 Unknown History mcg/actuation nasal Allergy Symptoms spray,suspension cholecalciferol (vitamin D3) 125 125 mcg PO QAM 10/18/24 02/21/25 Unknown History mcg (5,000 unit) capsule loratadine 10 mg tablet (Allergy 10 mg PO QAM 11/14/24 02/21/25 Unknown History Relief (loratadine)) pantoprazole 40 mg tablet,delayed 40 mg PO QAM 11/14/24 02/21/25 03/07/25 History release polyethylene glycol 3350 17 gram 17 g PO QAM 11/14/24 02/21/25 Unknown History oral powder packet (Miralax) valacyclovir 1 gram tablet 1,000 mg PO QAM 11/14/24 02/21/25 Unknown History calcium carbonate (Calcium 600) 600 mg PO DAILY 02/21/25 02/21/25 Unknown History Exam Height,Weight and Vital Signs: Height 5 ft 7 in Weight 109.316 kg Last Vital Signs Pulse 76 02/21/25 12:26 Resp 17 02/21/25 12:26 BP 98/54 L 02/21/25 12:26 Pulse Ox 96 02/21/25 12:26 O2 Del Method Room Air 02/21/25 12:26 Pertinent Lab Results Pertinent Lab Results: Laboratory Tests 01/23/25 02/21/25 16:04 12:56 WBC 5.4 Hgb 12.3 D Hct 37.7 D Plt Count 223 Sodium 141 Potassium 4.6 D Chloride 107 Carbon Dioxide 28 BUN 19 H Creatinine 0.63 Narrative Narrative: EKG 11/2024 Vent. Rate : 69 BPM Atrial Rate : 69 BPM P-R Int : 186 ms QRS Dur : 88 ms QT Int : 398 ms P-R-T Axes : 74 62 72 degrees QTcB Int : 426 ms Normal sinus rhythm Normal ECG When compared with ECG of 28-Jan-2023 17:14, No significant change was found Assessment and Plan Assessment Anesthesia Assessment: Chart Reviewed Final Anesthetic Review Family History of Problems with Anesthesia: No History of Problems with Anesthesia: No Documented by User: Tone Muñiz MD 03/07/25 15:45 PMFSH Past Medical History Medical History (Updated 02/21/25 @ 12:16 by Smitha Guy RN) History of revision of total replacement of right knee joint Back pain Depression Bronchitis Asthma Right femoral fracture Diverticulosis Mild major depression Neck pain BMI 34.0-34.9,adult Leukopenia Sleep apnea Liver cyst Obesity (BMI 30-39.9) History of small bowel obstruction Lumbar degenerative disc disease Hematuria Migraines IBS (irritable bowel syndrome) Anemia Arthritis Hypothyroid GERD (gastroesophageal reflux disease) Family History Family History Father FH: prostate cancer Mother Breast cancer Bladder cancer Surgical History Surgical History (Updated 02/21/25 @ 12:16 by Smitha Guy RN) Hx of elbow surgery History of surgical removal of skin lesion History of ankle surgery History of surgery History of hand surgery Hx of foot surgery History of esophagogastroduodenoscopy (EGD) History of surgery H/O hernia repair History of endometrial ablation H/O tubal ligation History of delivery History of bladder surgery Hx of colonoscopy (~02/11/23) History of back surgery H/O: hysterectomy History of bilateral knee replacement Social History Social History Household Members: None Housing: Apartment Are you a primary companion caregiver to a significant other at home: No 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 have visiting nurse or other home services: Yes Alcohol intake: never Comment: COUNTS CORRECT Patient Tobacco Use Status: Former Tobacco user Tobacco use type: Cigarette Years Smoked: 24 e-Cigarette/Vaping Use: Never Used Second Hand Smoke Exposure: No Use of substances other than those prescribed or required for medical reasons: Yes Substance Use Type: Methamphetamine Substance Use Frequency: Daily Have you been hit, kicked, punched, or otherwise hurt by someone within the past year? If so, by whom?: No Are you DNR?: No Advance Directives: No Advance Directives Information Provided: Yes Advance Directives on File: No Patient : No : No Poor oral hygiene: Yes service: No Current occupational status: unemployed and disabled Cognitive needs: Yes Hearing needs: No Vision needs: Yes Meds Allergies Allergy/AdvReac Type Severity Reaction Status Date / Time amoxicillin (Augmentin) Allergy Intermediate rash Verified 03/01/25 14:15 cat dander Allergy Intermediate Nasal Verified 03/01/25 14:15 congestion clavulanic acid (Augmentin) Allergy Intermediate rash Verified 03/01/25 14:15 trazodone (TRAZODONE) Allergy Intermediate Shortness Verified 03/01/25 14:15 of Breath Home Medications ?Medication ?Instructions ?Recorded ?Confirmed ?Last Taken ?Type glucosamine HCl 500 mg tablet 500 mg PO QAM 10/01/20 02/21/25 06/25/23 05:00 History multivitamin 1 tab PO QAM 10/01/20 02/21/25 06/25/23 05:00 History clonazepam 0.5 mg tablet 0.5 mg PO BID PRN Anxiety 04/04/21 02/21/25 01/27/22 History melatonin 5 mg tablet 5 mg PO BEDTIME 0802/21/25 01/27/22 History ascorbic acid (vitamin C) 100 mg 100 mg PO QAM 01/28/22 02/21/25 06/25/23 05:00 History tablet quetiapine 300 mg tablet 600 mg PO BEDTIME 08/05/23 02/21/25 Unknown History venlafaxine 150 mg 150 mg PO QAM 08/05/23 02/21/25 Unknown History capsule,extended release 24 hr venlafaxine 75 mg capsule,extended 75 mg PO QAM 08/05/23 02/21/25 Unknown History release 24 hr meloxicam 15 mg tablet 15 mg PO QAM 12/13/23 02/21/25 Unknown History epinephrine 0.3 mg/0.3 mL 0.3 mg IM ONCE PRN anaphylaxis 03/27/24 02/21/25 Unknown History injection, auto-injector fluticasone propionate 50 1 spray intranasal DAILY PRN 03/27/24 02/21/25 Unknown History mcg/actuation nasal Allergy Symptoms spray,suspension cholecalciferol (vitamin D3) 125 125 mcg PO QAM 10/18/24 02/21/25 Unknown History mcg (5,000 unit) capsule loratadine 10 mg tablet (Allergy 10 mg PO QAM 11/14/24 02/21/25 Unknown History Relief (loratadine)) pantoprazole 40 mg tablet,delayed 40 mg PO QAM 11/14/24 02/21/25 03/07/25 History release polyethylene glycol 3350 17 gram 17 g PO QAM 11/14/24 02/21/25 Unknown History oral powder packet (Miralax) valacyclovir 1 gram tablet 1,000 mg PO QAM 11/14/24 02/21/25 Unknown History calcium carbonate (Calcium 600) 600 mg PO DAILY 02/21/25 02/21/25 Unknown History Exam Airway Mallampati Class: III TM Dist: >3cm Neck ROM: Full Assessment and Plan Assessment Anesthesia Assessment: Anesthesia Plan Discussed Final Anesthetic Review NPO: Yes ASA Class: III Final Preanesthetic Review: No Changes in Pt Med Stat, Meds/Allgs Chart Reviewed, Consent Obtained/Reviewed and Anes Risks/Benef Reviewed Patient Risk: Intermediate Procedure Risk: Low Anesthetic Plan Anesthetic Plan: GA Disposition: Standard PACU
[2025-03-07] VITALS (12 sets, daily range): BP systolic 107–144; BP diastolic 42–66; PULSE 66–78; RESP 12–16; TEMP 36–37.2; O2SAT 88–100; BMI 37.7
--- NOTE | ~2025-03-07 | FL_ITS ---
EXAMINATION: FL GUIDANCE ONLY HISTORY: HARDWARE REMOVAL RIGHT FEMUR COMPARISON: Correlation is made to plain films of the right femur dated 03/01/2025. TECHNIQUE: Fluoroscopy time: 0.5 minutes. Cumulative Dose: 5.45 mGy. DAP: 0.0946 mGym2 Images: 2. FINDINGS: Fluoroscopic spot films of the right knee in the AP projection demonstrate removal of the previously seen intramedullary lito and multiple screws. The total knee prosthesis is unchanged in appearance. FL/FL guidance in OR IMPRESSION: Fluoroscopy during procedure. Please see procedure report for additional information. Electronically signed by: Michael Fisher MD 03/07/2025 03:10 PM EDT
--- NOTE | 2025-03-07 11:43 | MHC.SHP ---
Pre-Procedural Eval Section A - 24 Hr Update-Section A only Date of Service: 03/07/25 The patient is an INPATIENT: No Changes since office visit: No Cold of Flu in the past 2 weeks, No New Medical Problems, No Changes in Medication and No Patient answered all questions The patient has been examined within 24 hours of the surgical procedure. The History & Physical has been completed within 30 days and I have reviewed it.: Yes Section B - Complete if H&P > 30 days Chief Complaint: Pain due to internal orthopedic prosthetic devices Allergies: Allergies Allergy/AdvReac Type Severity Reaction Status Date / Time amoxicillin (Augmentin) Allergy Intermediate rash Verified 03/01/25 14:15 cat dander Allergy Intermediate Nasal Verified 03/01/25 14:15 congestion clavulanic acid (Augmentin) Allergy Intermediate rash Verified 03/01/25 14:15 trazodone (TRAZODONE) Allergy Intermediate Shortness Verified 03/01/25 14:15 of Breath Plan I have reviewed the history and physical and performed a pertinent physical examination on my patient. No changes have occurred unless specified. Time Spent With Patient Time: Total time managing care of this patient today ____ minutes.
[2025-03-07] MEDS: Lactated Ringers 1,000 ML 100 ML IVCONT (12:20)
--- NOTE | 2025-03-07 15:04 | P.BOP_ITS ---
Brief Operative Note Date of Service: 03/07/25 Pre-op diagnosis: retained ortho hardware, right femur Post-op diagnosis: same Procedure: Removal of hardware right femur, deep Surgeon: Sinan Gibbs MD Anesthesia: GLMA and local Was an Conductor Freight used for this Procedure?: Yes Conductor Freight: Tosha Tang Estimated blood loss (mL): 100 IV fluids (mL): 800 Pathology: none sent Condition: stable Disposition: PACU
[2025-03-07] MEDS: oxyCODONE HCl Immed Release 5 MG TABLET PO (16:08)
--- NOTE | 2025-03-08 07:40 | W.PM.OPN ---
Operative Note Operative Note Date of Service: 03/07/25 Narrative: Date of Service: 03/07/25 Pre-op diagnosis: retained ortho hardware, right femur Post-op diagnosis: same Procedure: Removal of hardware right femur, deep Surgeon: Sinan Gibbs MD Anesthesia: GLMA and local Was an Hat And Cap Drying Room Attendant used for this Procedure?: Yes Hat And Cap Drying Room Attendant: Tosha Tang Estimated blood loss (mL): 100 IV fluids (mL): 800 Pathology: none sent Condition: stable Disposition: PACU Procedure in detail: Patient was brought to the operating room and placed in the supine position on the surgical table. She was prepped and draped in standard sterile fashion and a time out was called to identify proper site, proper procedure and IV antibiotics per weight were administered. I began by making a lateral incision over the lateral screw heads. Direct visualization was required because there was bony coverage of the 3 lateral to medial screws. Each of these were identified using a combination of direct visualization and fluoroscopic guidance. Each were removed with a large frag screwdriver without difficulty after removing the overgrown bone. I then repeated this process medially and removed the 1 medial to lateral screw. I then made an incision over the distal aspect of the knee and prior incision. This was taken down to the patellar tendon and a longitudinal incision was made through the patellar tendon in line with the skin incision. Once this was done I used fluoroscopic guidance to insert the Mary tree removal device into the distal aspect of the retrograde femoral nail. Once I was satisfied that I had a tight fit I turned my attention to the proximal lateral to medial screws. Using fluoroscopic guidance a incision was made over these 2 lateral screws and blunt dissection was taken down to the screws. I was able to palpate them digitally and placed my screwdriver and removed both without incident. I then backslapped the nail and this was removed easily. Copious irrigation was then performed on all the incision sites and they were closed with absorbable suture and lino. Final radiographs redemonstrated the presence of the total knee replacement and a absence of the prior retrograde femoral nail and associated hardware. The patient was placed in sterile dressings, extubated and brought to the recovery room in stable condition. There were no known complications.
== END 2025-03-07 16:30 | disposition home or self-care (01) ==
PROVIDERS: Nurse Practitioner; PCP Internal Medicine; Visit Provider Orthopaedic Surgery
PROC: (CPT 20680; principal; 2025-03-07 15:30)
DX: T84.84XA Pain due to internal orthopedic prosthetic devices, implants and grafts, initial encounter (principal); Y79.2 Prosthetic and other implants, materials and accessory orthopedic devices associated with adverse incidents; M25.551 Pain in right hip; M16.11 Unilateral primary osteoarthritis, right hip; Z87.81 Personal history of (healed) traumatic fracture; Z99.89 Dependence on other enabling machines and devices; Z96.642 Presence of left artificial hip joint; G47.33 Obstructive sleep apnea (adult) (pediatric); Z98.890 Other specified postprocedural states; Z56.0 Unemployment, unspecified
CPT/HCPCS: 20680; 36415; 85027; J0131; J0736; J1100; J2003; J2250; J2405; J2704; J2795; J3010

== ENCOUNTER → 2025-03-07 10:40 | Outpatient (BNV) | payer OTHER, SELFPAY | PROVIDERS: PCP Internal Medicine; Visit Provider Orthopaedic Surgery | DX: T84.84XA Pain due to internal orthopedic prosthetic devices, implants and grafts, initial encounter (principal) | CPT/HCPCS: 20680 ==

== ENCOUNTER 2025-03-13 08:34 | Outpatient (REF) | payer OTHER, SELFPAY ==
--- NOTE | ~2025-03-13 | XR_ITS ---
EXAMINATION: XR FEMUR 2 VIEWS RIGHT HISTORY: S72.91XA - Unspecified fracture of right femur, initial encounter for COMPARISON: Comparison is made with the prior examination dated 03/01/2025. FINDINGS: AP and lateral views of the right femur are submitted. There is been interval removal of the previously seen intramedullary lito and multiple screws in the distal femur. A right total knee arthroplasty is again seen. There is no fracture or dislocation. There is severe osteoarthritis of the right hip with joint space narrowing and osteophyte formation. Postoperative changes are noted in the soft tissues. XR/XR femur RT 2V IMPRESSION: Interval removal of hardware in the distal femur. Electronically signed by: Michael Fisher MD 03/13/2025 03:06 PM EDT
--- OUTSIDE RECORDS SUMMARY | 2025-03-14 08:46 | XMS_ITS | Patient Health Record ---
Author Organization 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
--- OUTSIDE RECORDS SUMMARY | 2025-03-14 08:46 | XMS_ITS | Clinical Summary ---
Author Organization [employer] Address [address] [facility] 7t [place] [address] Care Team Providers Care Study Abroad Advisor Name Role Phone Unavailable Primary Care Provider [...] patient's age to complete this topic Insurance [place], [place] [facility] ONE CARE < 65 [place] [id number]
--- OUTSIDE RECORDS SUMMARY | 2025-03-14 08:46 | XMS_ITS | Clinical Summary ---
Author Organization [facility] Address [address] [place] [address] Phone Care Team Providers Care Electrical High Tension Tester Name Role Phone Brianda Cotton MD Primary Care Provid er Pcp, Unknown Unavailable Unavailable Allergies Active Allergy Reactions Criticality Noted Date Comments Amoxicillin-Pot Clavulanate 06/03/20 22 rash Trazodone 06/03/2022 Difficulty breathing Encounters Date Type Department Care Team Description 12/20/2024 Orders Only [facility] [address] [place] [phone] Homehealth, Interface ProviderMD from Last 3 Months [...] file Medical Devices Not on file Insurance [facility] ONE CARE MEDICARE REPLACEMENT MEDICARE PART A & B [facility] ONE CARE MEDICARE REPLACEMENT MEDICARE PART A & B [facility] ONE CARE MEDICARE REPLACEMENT MEDICARE PART A & B [facility] ONE CARE MEDICARE REPLACEMENT MEDICARE PART A & B [facility] ONE CARE MEDICARE REPLACEMENT MEDICARE PART A & B [facility] C[facility] MEDICARE REPLACEMENT MEDICARE PART A & B [facility] ONE CARE MEDICARE REPLACEMENT [facility] MEDICARE REPLACEMENT [facility] MEDICARE REPLACEMENT MEDICARE REPLACEMENT MEDICARE REPLACEMENT [place] [address] [place] [address] MEDICARE REPLACEMENT MEDICARE REPLAC[place] [address] MEDICARE REPLACEMENT Care Teams Electrical High Tension Tester Relationship Specialty Start Date End Date Brianda Cotton MD [address] [place] [address] PCP - General Internal Medicine 12/21/24 Pcp, Unknown 12/21/24 Additional Source Comments The information contained in this document represents components of the legal health record. It is not the complete legal health record.[facility]
== END 2025-03-13 08:35 | disposition home or self-care (01) ==
LOC: HO.HOSX 08:34
PROVIDERS: Visit Provider Physician Assistant
DX: Z47.89 Encounter for other orthopedic aftercare (principal); M25.561 Pain in right knee; S72.401D Unspecified fracture of lower end of right femur, subsequent encounter for closed fracture with routine healing; X58.XXXD Exposure to other specified factors, subsequent encounter
CPT/HCPCS: 73552; 99212

== ENCOUNTER 2025-03-13 14:34 | Outpatient (AMB) | payer OTHER, SELFPAY ==
--- NOTE | 2025-03-13 15:01 | A.OFFVIS_ITS ---
Intake Visit Reasons: PO-Rt Femur MARU 03/07/25 NE Intake Note: Jr is a 64 year old female who presents today for a post operative appointment for her right Femur removal of hardware done on 03/07/[address] Gibbs. Patient states that her pain is a 6 out of 10 on the pain scale and her knee is in pain. Pain is mostly located at the knee. No additional complaints. Allergies amoxicillin (Augmentin) Allergy (Intermediate, Verified 03/13/25 15:05) rash cat dander Allergy (Intermediate, Verified 03/13/25 15:05) Nasal congestion clavulanic acid (Augmentin) Allergy (Intermediate, Verified 03/13/25 15:05) rash trazodone (TRAZODONE) Allergy (Intermediate, Verified 03/13/25 15:05) Shortness of Breath HPI HPI PO-Rt Femur MARU 03/07/25 NE: Details: Ms. Parekh this is a 64-year-old female who presents to the office today status post right femur retrograde IM nail removal of hardware performed on 03/07/[address] Gibbs. Surgery was performed in preparation for right total hip arthroplasty planning. Patient is doing very well overall. She reports some soreness but this is manageable. [facility] Medical History (Updated 02/21/25 @ 12:16 by Smitha Guy RN) History of revision of total replacement of right knee joint Back pain Depression Bronchitis Asthma Right femoral fracture Diverticulosis Mild major depression Neck pain BMI 34.0-34.9,adult Leukopenia Sleep apnea Liver cyst Obesity (BMI 30-39.9) History of small bowel obstruction Lumbar degenerative disc disease Hematuria Migraines IBS (irritable bowel syndrome) Anemia Arthritis Hypothyroid GERD (gastroesophageal reflux disease) Surgical History (Updated 02/21/25 @ 12:16 by Smitha Guy RN) Hx of elbow surgery History of surgical removal of skin lesion History of ankle surgery History of surgery History of hand surgery Hx of foot surgery History of esophagogastroduodenoscopy (EGD) History of surgery H/O hernia repair History of endometrial ablation H/O tubal ligation History of delivery History of bladder surgery Hx of colonoscopy (~02/11/23) History of back surgery H/O: hysterectomy History of bilateral knee replacement Family History Father FH: prostate cancer Mother Breast cancer Bladder cancer Social History Household Members: None Housing: Apartment Are you a primary health care administrator to a significant other at home: No 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 have visiting nurse or other home services: Yes Alcohol intake: never Patient Tobacco Use Status: Former Tobacco user Tobacco use type: Cigarette Years Smoked: 24 e-Cigarette/Vaping Use: Never Used Second Hand Smoke Exposure: No Substance Use Type: Methamphetamine service: No Current occupational status: unemployed and disabled Cognitive needs: Yes Hearing needs: No Vision needs: Yes Review of Systems Const All systems reviewed & are unremarkable except as noted in HPI and below Physical Exam Const General: cooperative, healthy appearing and no acute distress Resp Effort & Inspection: normal respiratory effort and able to speak in complete sentences Extrem Other: Right knee and thigh incision sites are clean dry and intact. Sabine intact. No surrounding erythema or drainage. No signs of infection. Full range of motion of the hip and knee. Sensation intact. NVI. Psych Appearance: grossly normal Mental Status: mental status grossly normal Attitude: cooperative Assessment & Plan Assessment & Plan (1) Retained orthopedic hardware: Code(s): Z96.9 - Presence of functional implant, unspecified Category: Medical Plan Ms. Parekh this is a 64-year-old female who presents to the office today status post right femur retrograde IM nail removal of hardware performed on 03/07/[address] Gibbs. Surgery was performed in preparation for right total hip arthroplasty planning. Patient is doing very well overall. She reports some soreness but this is manageable. While in the office today, sabine were removed and Steri-Strips were applied. Patient is using a walker to assist with ambulation and will continue to do so. She will follow up in [address] Gibbs for further discussion and planning of right total hip arthroplasty. X-rays of the right femur which were obtained while in the office today and were reviewed by me, Tosha Tang PA-C, revealed successful removal of hardware. Orders: Orders XR femur RT 2V 03/13/25 S72.91XA - Unspecified fracture of right femur, initial encounter for closed fracture Coding Level of Care Code Global (32841) Diagnoses Retained orthopedic hardware Z96.9
--- OUTSIDE RECORDS SUMMARY | 2025-03-13 15:11 | XMS_ITS | Clinical Summary ---
Author Organization [employer] Address [address] [facility] 7[address] [place] [address] Care Team Providers Care Fun House Attendant Name Role Phone Unavailable Primary Care Provider [...] patient's age to complete this topic Insurance [place], [place] [facility] ONE CARE < 65 [place] [id number]
--- OUTSIDE RECORDS SUMMARY | 2025-03-13 15:12 | XMS_ITS | Patient Health Record ---
Author Organization 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
--- OUTSIDE RECORDS SUMMARY | 2025-03-13 15:12 | XMS_ITS | Clinical Summary ---
Author Organization [facility] Address [address] [place] [address] Phone Care Team Providers Care Employee Relations Consultant Name Role Phone Brianda Cotton MD Primary Care Provid er Pcp, Unknown Unavailable Unavailable Allergies Active Allergy Reactions Criticality Noted Date Comments Amoxicillin-Pot Clavulanate 06/03/20 22 rash Trazodone 06/03/2022 Difficulty breathing Encounters Date Type Department Care Team Description 12/20/2024 Orders Only [facility] [address] [place] [id number] Homehealth, Interface ProviderMD from Last 3 Months [...] file Medical Devices Not on file Insurance [facility] ONE CARE MEDICARE REPLACEMENT MEDICARE PART A & B [facility] ONE CARE MEDICARE REPLACEMENT MEDICARE PART A & B [facility] ONE CARE MEDICARE REPLACEMENT MEDICARE PART A & B [facility] ONE CARE MEDICARE REPLACEMENT [facility]ARE [facility] & [facility] ONE CARE MEDICARE REPLACEMENT MEDICARE PART A & [facility] MEDICARE REPLACEMENT MEDICARE PART A & B [facility] ONE CARE MEDICARE REPLACEMENT [facility] MEDICARE REPLACEMENT [facility] MEDICARE REPLACEMENT MEDICARE REPLACEMENT MEDICARE [address] [address] [place] [address] [place] [place] [address] MEDICARE REPLACEMENT MEDICARE [place] [address] [place] [address] MEDICARE REPLACEMENT Care Teams Employee Relations Consultant Relationship Specialty Start Date End Date Brianda Cotton MD [address] [place] [address] PCP - General Internal Medicine 12/21/24 Pcp, Unknown 12/21/24 Additional Source Comments The information contained in this document represents components of the legal health record. It is not the complete legal health record.[facility]
== END 2025-03-13 15:47 | disposition home or self-care (01) ==
LOC: HO.HOS 14:34
PROVIDERS: PCP Internal Medicine; Visit Provider Physician Assistant
DX: Z96.9 Presence of functional implant, unspecified (principal)
CPT/HCPCS: 99024

== ENCOUNTER → 2025-03-13 14:36 | Outpatient (BNV) | payer OTHER, SELFPAY | PROVIDERS: Visit Provider Radiology Diagnostic Radiology | DX: M16.11 Unilateral primary osteoarthritis, right hip (principal) | CPT/HCPCS: 73552 ==

== ENCOUNTER 2025-04-12 14:35 | Outpatient (AMB) | payer OTHER, SELFPAY ==
--- OUTSIDE RECORDS SUMMARY | 2024-02-03 03:54 | XMS_ITS | Continuity of Care Document ---
Author Organization [facility] Address [address] [place] [address] Dr [address] [place] [address] Phone Care Team Providers Care Health Care Sanitary Technician Name Role Phone Brooks WHITTEN, DOMINIC, [...] Providers Copied on Encounter [facility], [address] [place] [address] Dr [address]Suite Alanna Buck [place], [id number], tel:[phone] NIEVES Mondragon No Information 4 Brooks WHITTEN RVT, RPVI Robert. [address] [place] [address], [facility] [place], [id number] , [place]. tel:[phone] [place] [facility], [address] [place] [address] Dr [address] 1000[email or web address] 1000Alanna [place], [id number], tel:[phone] [place] [facility] No Information 4 Brooks WHITTEN RVT, RPVI Robert. [address] [facility], [address], [facility] [place], [id number] , [place]. tel:[phone] Offic Cons New/estab Mod 40 Mi- CT & [place] [facility], [address] [place] [address] Dr [address], [place], [id number], tel:[phone] [facility] Varicose veins of bilateral lower extremities with painPain in right legPain in left legRestless legs syndromeVenous insufficiency (chronic) (peripheral)Loc alized edema 4 Brooks WHITTEN RVT, FRANCHESCA Rodriguez. [address] [place] [address], [place], [place], [id number] , . tel:[phone] [facility], [address] [place] [address] Dr [address], [place], [id number], tel:[phone] [facility] Chronic venous hypertension (idiopathic) with other complications of bilateral lower extremity 4 Brooks WHITTEN RVT, FRANCHESCA Rodriguez. [address] [place] [address], [place], [place], [id number] , . tel:[phone] Referring Provider: Michael Guy MD, DOMINIC, FRANCHESCA, [address] [place] [address], [place], [address] . tel:[phone] Family History Family Member Type Diagnosis Age At Onset No Information Payers Payer name Insurance type Covered libertarian ID Authorsuea skyler(s) [facility] CI [id number] Social History Type Description Quantity Date Captured Comments Sex Female Smoking Status No Information Chief Complaint And Reason For Visit No Information Reason For Referral Reason For Referral No Information Plan Of Treatment Date Type Action Status Goal Tobacco cessation counseling completed Goal Diet education completed Referral Ordered: Weight management: Referral to physician timeframe: 3 Months (related to Body mass index (BMI) 38.0-38.9, adult) ordered History Of Present Illness Encounter Date Complaint History Of Prese nt Illness No Information Functional Status Date Functional Assessmen t No Information Instructions Date Instruction Additional Infor mation Diet education Related to Body mass index (BMI) 38.0-38.9, adult Giving Encouragement to exercise Related to Body mass index (BMI) 38.0-38.9, adult Lifestyle education Related to B liberty mass index (BMI) 38.0-38.9, adult Pre and post instruc tions reviewed and provided Related to Varicose veins of bilateral lower extremities with pain Patient education booklet given Related to Varicose veins of bilateral lower extremities with pain Assessments Type Assessment Date No Information Patient Care Teams Name Effective Dates (start - stop) Status Members No Information
--- NOTE | 2025-04-12 14:57 | MHC.OFFVIS ---
Intake Visit Reasons: PO-Rt Femur MARU 03/07/25 NE Intake Note: Jr is a 64 year old female who presents today for a post operative appointment about 5 weeks s/p Right Femur removal of hardware 03/07/25. Surgery was performed in preparation for right total hip arthroplasty planning, today she would like to form a plan of care/determine the next steps. Allergies amoxicillin (Augmentin) Allergy (Intermediate, Verified 03/13/25 15:05) rash cat dander Allergy (Intermediate, Verified 03/13/25 15:05) Nasal congestion clavulanic acid (Augmentin) Allergy (Intermediate, Verified 03/13/25 15:05) rash trazodone (TRAZODONE) Allergy (Intermediate, Verified 03/13/25 15:05) Shortness of Breath HPI HPI PO-Rt Femur MARU 03/07/25 NE: Details: Jr is a 64 year old female who presents today for a post operative appointment about 5 weeks s/p Right Femur removal of hardware 03/07/25. Surgery was performed in preparation for right total hip arthroplasty planning, today she would like to form a plan of care/determine the next steps. [facility] Medical History (Updated 02/21/25 @ 12:16 by Smitha Guy RN) History of revision of total replacement of right knee joint Back pain Depression Bronchitis Asthma Right femoral fracture Diverticulosis Mild major depression Neck pain BMI 34.0-34.9,adult Leukopenia Sleep apnea Liver cyst Obesity (BMI 30-39.9) History of small bowel obstruction Lumbar degenerative disc disease Hematuria Migraines IBS (irritable bowel syndrome) Anemia Arthritis Hypothyroid GERD (gastroesophageal reflux disease) Surgical History (Updated 02/21/25 @ 12:16 by Smitha Guy RN) Hx of elbow surgery History of surgical removal of skin lesion History of ankle surgery History of surgery History of hand surgery Hx of foot surgery History of esophagogastroduodenoscopy (EGD) History of surgery H/O hernia repair History of endometrial ablation H/O tubal ligation History of delivery History of bladder surgery Hx of colonoscopy (~02/11/23) History of back surgery H/O: hysterectomy History of bilateral knee replacement Family History Father FH: prostate cancer Mother Breast cancer Bladder cancer Social History Household Members: None Housing: Apartment Are you a primary urgent care physician to a significant other at home: No 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 have visiting nurse or other home services: Yes Alcohol intake: never Patient Tobacco Use Status: Former Tobacco user Tobacco use type: Cigarette Years Smoked: 24 e-Cigarette/Vaping Use: Never Used Second Hand Smoke Exposure: No Substance Use Type: Methamphetamine service: No Current occupational status: unemployed and disabled Cognitive needs: Yes Hearing needs: No Vision needs: Yes Physical Exam Extrem Other: Incision clean dry and intact on the left. No pain with hip range of motion. Mild Trendelenburg gait but difficult to assess given the contralateral practice function. On her right she has positive impingement and minimal motion when ranging of the hip. Right knee with excellent motion. Well-healed incisions. No pain with range of motion right knee. Results Reviewed Results Reviewed: I personally reviewed relevant radiographs. Severe right hip OA Assessment & Plan Assessment & Plan (1) Osteoarthritis of right hip: Code(s): M16.11 - Unilateral primary osteoarthritis, right hip Category: Medical Plan: Severe osteoarthritis right hip. We removed the hardware from her right knee. She seems to have healed well and continues however to describe ongoing right groin pain that prevents her from ambulating. She had a left hip replacement that was successful and I recommend right hip replacement. I discussed the risks benefits and alternatives including but not limited to the risk of pain, infection, stiffness, need for further surgery as well as potential medical complications such as blood clots, pulmonary embolism and cardiac complications. She understands this and would like to continue to proceed forward. I have talked to her safe technician and tentatively plan for hip replacement Coding Level of Care Code Est Pt Level 3 (53151) Global (37774) Diagnoses Osteoarthritis of right hip M16.11
--- OUTSIDE RECORDS SUMMARY | 2025-04-12 15:50 | XMS_ITS | Clinical Summary ---
Author Organization [employer] Address [address] [facility] [address] [place] [address] Care Team Providers Care Photogrammetric Engineer Name Role Phone Unavailable Primary Care Provider [...] PCV) 08/28/2016 08/28/2015 COVID-19 Vaccine ( season) 2025 08/21/2022, 12/25/2021, 08/18/2021, Additional history exists Influenza [...] patient's age to complete this topic Insurance [place], [place] [facility] ONE CARE < 65 [place] [id number]
--- OUTSIDE RECORDS SUMMARY | 2025-04-12 15:51 | XMS_ITS | Clinical Summary ---
Author Organization [facility] Address [address] [place] [address] Phone Care Team Providers Care Store Team Leader Name Role Phone Brianda Cotton MD Primary Care Provid er Pcp, Unknown Unavailable Unavailable Allergies Active Allergy Reactions Criticality Noted Date Comments Amoxicillin-Pot Clavulanate 06/03/20 22 rash Trazodone 06/03/2022 Difficulty breathing Immunizations Immunization Administration Dates Next Due Tdap [...] file Medical Devices Not on file Insurance [facility] CARE MEDICARE REPLACEMENT MEDICARE PART A & B [facility] CARE MEDICARE REPLACEMENT MEDICARE PART A & B [facility] ONE CARE MEDICARE REPLACEMENT MEDICARE PART A & B [facility] ONE CARE MEDICARE REPLACEMENT MEDICARE PART A & B [facility] ONE [facility] MEDICARE REPLACEMENT MEDICARE PART A & [facility] ONE CARE MEDICARE REPLACEMENT MEDICARE PART A & B [facility] CARE MEDICARE REPLACEMENT MEDICARE REPLACEMENT MEDICARE REPLACEMENT CARE MEDICARE REPLACEMENT MEDICARE REPLACEMENT MEDICARE REPLACEMENT MEDICARE REPLACEMENT MEDICARE REPLACEMENT Care Teams Store Team Leader Relationship Specialty Start Date End Date Brianda Cotton MD [address] [place] [address] PCP - General Internal Medicine 12/21/24 Pcp, Unknown 12/21/24 Additional Source Comments The information contained in this document represents components of the legal health record. It is not the complete legal health record.[facility]
--- OUTSIDE RECORDS SUMMARY | 2025-04-12 15:51 | XMS_ITS | Patient Health Record ---
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
== END 2025-04-12 16:01 | disposition home or self-care (01) ==
LOC: HO.HOS 14:36
PROVIDERS: PCP Internal Medicine; Visit Provider Orthopaedic Surgery
DX: M16.11 Unilateral primary osteoarthritis, right hip (principal)
CPT/HCPCS: 99024; 99213

== ENCOUNTER → 2025-04-12 14:35 | Outpatient (BNVA) | payer OTHER, SELFPAY | PROVIDERS: PCP Internal Medicine; Visit Provider Orthopaedic Surgery | DX: M16.11 Unilateral primary osteoarthritis, right hip (principal) | CPT/HCPCS: 99212 ==

== ENCOUNTER 2025-05-01 09:03 | Outpatient (AMB) | payer OTHER, SELFPAY ==
--- NOTE | 2025-05-01 09:07 | MHC.PC.OV ---
Vital Signs 05/01/25 09:09 Height 5 ft 7 in Weight 240 lb 11.916 oz BMI 37.7 BP 112/72 Blood Pressure Location Lt brachial Position Sitting Pulse 77 Pulse Source Pulse Oximeter Temp 97.1 F Temp Source Temporal Artery Scan Pulse Oximetry (%) 97 Oxygen Delivery Method Room Air Intake Visit Reasons: [place] ny/Dr. Gibbs 06/06/25 Associate Producer Required: No Accompanied by: Self / Same As Patient Allergies amoxicillin (Augmentin) Allergy (Intermediate, Verified 05/01/25 09:32) rash cat dander Allergy (Intermediate, Verified 05/01/25 09:32) Nasal congestion clavulanic acid (Augmentin) Allergy (Intermediate, Verified 05/01/25 09:32) rash trazodone (TRAZODONE) Allergy (Intermediate, Verified 05/01/25 09:32) Shortness of Breath Medication List - Last Reconciled 05/01/25 by Brianda Grant MD [4 wheel walker with seat As directed] acetaminophen 1,000 mg (2 x 500 mg) PO Q6H PRN 30 days albuterol sulfate 90 mcg/actuation (Ventolin HFA) 2 puffs inhalation Q6H PRN 30 days ascorbic acid (vitamin C) 100 mg PO QAM calcium carbonate (Calcium 600) 600 mg PO DAILY cholecalciferol (vitamin D3) 125 mcg PO QAM clonazepam 0.5 mg PO BID PRN docusate sodium (Colace) 200 mg (2 x 100 mg) PO BEDTIME 30 days epinephrine 0.3 mg IM ONCE PRN fluticasone propionate 50 mcg/actuation 1 spray intranasal DAILY PRN gabapentin 800 mg PO TID 90 days glucosamine HCl 500 mg PO QAM Grab bar As directed [hand held showerhead As directed] hydrocortisone 2.5% (Proctosol HC) 1 appl KS BEDTIME PRN levothyroxine 150 mcg PO DAILY 90 days loratadine (Allergy Relief (loratadine)) 10 mg PO QAM melatonin 5 mg PO BEDTIME meloxicam 15 mg PO QAM methylcellulose (laxative) (Citrucel) 500 mg PO BID multivitamin 1 tab PO QAM pantoprazole 40 mg PO QAM polyethylene glycol 3350 (Miralax) 17 grams PO QAM quetiapine 600 mg PO BEDTIME [Shoe lift As directed] [toilet seat elevator As directed] tramadol 100 mg (2 x 50 mg) PO Q6H PRN 30 days valacyclovir 1,000 mg PO QAM venlafaxine ER 150 mg PO QAM venlafaxine ER 75 mg PO QAM walker (Ultra-Light Rollator misc) As directed walker Folding Front wheeled walker duration 99 days Tobacco use date assessed: 05/01/25 Fall risk assessment: No Falls in past year Last assessed Fall Risk: 05/01/25 Dental Screening Dental Screen Date: 05/01/25 Did you have a dental visit in the last 12 months?: Yes Did you have a dental problem in the last 6 months where you did not have access to dental care?: No Was dental information given to patient?: Patient has dentist HPI HPI Comments History of Present Illness Details The patient is a 64-year-old female presenting with a preoperative evaluation for right hip replacement. The surgery is scheduled for the end of next month, specifically on the . The patient has a history of elevated cholesterol, which was noted during previous evaluations. This condition is not directly related to the preoperative evaluation but will be monitored as part of her overall health management. The patient has a history of hypothyroidism and is currently on levothyroxine 150 mcg. A blood test is planned to reassess her thyroid function as part of her ongoing management. Her surgical history includes a left elbow surgery, surgical removal of a skin lesion in the labia majora, ankle surgery, and a history of femur fracture with surgical repair. She has also undergone hand surgery, foot surgery, endoscopy, hernia repair, endometrial ablation, tubal ligation, , bladder surgery, colonoscopy, hysterectomy, and bilateral knee replacement. The patient used to smoke but has since quit and does not consume alcohol. EKG shows NSR. Labs pending for medical clearance. [facility] Medical History (Updated 05/01/25 @ 09:48 by Brianda Grant MD) History of revision of total replacement of right knee joint Back pain Depression Bronchitis Asthma Right femoral fracture Diverticulosis Mild major depression Neck pain BMI 34.0-34.9,adult Leukopenia Sleep apnea Liver cyst Obesity (BMI 30-39.9) History of small bowel obstruction Lumbar degenerative disc disease Hematuria Migraines IBS (irritable bowel syndrome) Anemia Arthritis Hypothyroid GERD (gastroesophageal reflux disease) Surgical History Hx of elbow surgery History of surgical removal of skin lesion History of ankle surgery History of surgery History of hand surgery Hx of foot surgery History of esophagogastroduodenoscopy (EGD) History of surgery H/O hernia repair History of endometrial ablation H/O tubal ligation History of delivery History of bladder surgery Hx of colonoscopy (~02/11/23) History of back surgery H/O: hysterectomy History of bilateral knee replacement Family History Father FH: prostate cancer Mother Breast cancer Bladder cancer Social History Household Members: None Housing: Apartment Are you a primary care team assistant to a significant other at home: No 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 have visiting nurse or other home services: No Alcohol intake: never Patient Tobacco Use Status: Former Tobacco user Tobacco use type: Cigarette Years Smoked: 24 e-Cigarette/Vaping Use: Never Used Second Hand Smoke Exposure: No Substance Use Type: Methamphetamine service: No Current occupational status: unemployed and disabled Cognitive needs: Yes Hearing needs: No Vision needs: Yes Questionnaire PHQ-9 Over the last 2 weeks, how often have you been bothered by any of the following problems? 1. Little interest or pleasure in doing things: several days 2. Feeling down, depressed, or hopeless: several days 3. Trouble falling or staying asleep, or sleeping too much: not at all 4. Feeling tired or having little energy: not at all 5. Poor appetite or overeating: not at all 6. Feeling bad about yourself - or that you are a failure or have let yourself or your family down: not at all 7. Trouble concentrating on things, such as reading the newspaper or watching television: not at all 8. Moving or speaking so slowly that other people could have noticed. Or the opposite - being so fidgety or restless that you have been moving around a lot more than usual: not at all 9. Thoughts that you would be better off or of hurting yourself in some way: not at all Total score: 2 Depression Screening Interpretation: Positive Depression Screening Follow-up: Existing condition, In treatment, Community Mental Health Worker F/U and Follow-up Visit Requested Depression Screening Done: Yes 33828 - PHQ-9 Billing: Yes Source: Developed by Drs. Michael Neville, Morena Olson, Jt Hawkins and colleagues, with an educational ayan from [employer]. Thrive Questionnaire Date Thrive assessed: 12/13/24 I am a: Patient What is your living situation today?: I have a steady place to live Within the past 12 months, did the food you bought not last and you didn't have the money to get more?: Never true Within the past 12 months, did you worry whether your food would run out before you got money to buy more?: Never true Do you have trouble paying for medicines?: No Do you have trouble getting transportation to medical appointments?: No Do you have trouble paying your heating and electricity bill?: No Do you have trouble taking care of your child, family member or friend?: No Do you have trouble with day-to-day activities such as bathing, preparing meals, shopping, managing finances, etc.?: No Are you currently unemployed and looking for a job?: No Are you interested in more education?: No Please select the resources that you would like help with: None Currently or been in a relationship where the following occur: No concerns reported THRIVE Score: 0 AUDIT C Alcohol Use Questionnaire (AUDIT-C) 1. How often do you have a drink containing alcohol?: Never 3. How often do you have six or more drinks on one occasion?: Never Total Score: 0 DB-7 AMB Questionnaire DB-7 Date DB - 7 assessed: 10/24/24 Feeling nervous, anxious, or on edge: 1 = Several days Not being able to stop or control worryin = Not at all Worrying too much about different things: 0 = Not at all Trouble relaxin = Not at all Being so restless that it is hard to sit still: 0 = Not at all Becoming easily annoyed or irritable: 0 = Not at all Feeling afraid as if something awful might happen: 0 = Not at all Total DB-7 score (0-4 normal; 5-9 mild; 10-14 moderate; 15-21 severe): 1 Source: Developed by Drs. Michael Neville, Jt Houstonnke and colleagues, with an educational ayan from [employer]. DB-7 Assessment Billing DB-7 Assessment Tool: DB-7 Assessment 81806 Review of Systems Const All systems reviewed & are unremarkable except as noted in HPI and below Card Denies chest pain at rest, Denies chest pain with activity, Denies edema, Denies irregular heart rhythm, Denies claudication, Denies dyspnea, Denies dyspnea on exertion, Denies orthopnea, Denies paroxysmal nocturnal dyspnea and Denies slow heart rate Resp Denies cough, Denies dyspnea and Denies dyspnea on exertion GI Denies abdominal pain, Denies change in bowel habits, Denies excessive flatus, Denies nausea and Denies vomiting Denies urinary incontinence, Denies urinary hesitancy and Denies urinary urgency Physical exam (Primary Care) Vital Signs: Last Vital Signs Temp 97.1 F 05/01/25 09:09 Pulse 77 05/01/25 09:09 BP 112/72 05/01/25 09:09 Pulse Ox 97 05/01/25 09:09 Oxygen Delivery Method Room Air 05/01/25 09:09 BMI result Body Mass Index 37.7 BMI Assessment/Plan discussion: High BMI High, discussed plan: lifestyle, weight reduction, dietary and physical activity Tobacco/Smoking Status: Tobacco use Status Tobacco use date assessed 05/01/25 05/01/25 09:14 Patient Tobacco Use Status Former Tobacco user 05/01/25 09:14 Tobacco use type Cigarette 05/01/25 09:14 e-Cigarette/Vaping Use Never Used 05/01/25 09:14 PHQ-9: PHQ-9 Score PHQ-9: Total score 2 05/01/25 09:14 Depression Screening Interpretation: Positive Depression Screening Follow-up: Existing condition, In treatment, Community Mental Health Worker F/U and Follow-up Visit Requested Thrive Assessment: Date of Thrive Assessment Date Thrive assessed 12/13/24 05/01/25 09:14 Currently or been in a relationship where the following occur: No concerns reported Const Limitations: ambulation with walker Resp Effort & Inspection: normal respiratory effort Auscultation: clear to auscultation bilaterally Cardio Jugular venous distension: no JVD Rate: regular rate Rhythm: regular rhythm Heart sounds: S1 normal heart sound present and S2 normal heart sound present Extrem General: Yes full ROM Coding Level of Care Code Est Pt Level 4 (63465) Complex EM visit Add On G2211 Diagnoses Pre-op evaluation Z01.8 Osteoarthritis of right hip M16.11 Hypothyroid E03.9 Moderate recurrent major depression F33.1 Additional Codes PHQ-9 - 65831 - PHQ-9 Billing: Yes ([id number]) DB-7 Assessment Billing - DB-7 Assessment Tool: DB-7 Assessment 61018 ([id number]) Time Spent (min) 24 Assessment & Plan Assessment & Plan (1) Pre-op evaluation: Code(s): Z01.818 - Encounter for other preprocedural examination Category: Medical (2) Osteoarthritis of right hip: Code(s): M16.11 - Unilateral primary osteoarthritis, right hip Category: Medical (3) Hypothyroid: Code(s): E03.9 - Hypothyroidism, unspecified Category: Medical (4) Moderate recurrent major depression: Code(s): F33.1 - Major depressive disorder, recurrent, moderate Category: Medical Plan Plan Patient was informed and verbally consented to the use of an ambient scribe for clinic note documentation during this visit. 1. Encounter for other preprocedural examination Z01. The patient is scheduled for a right hip replacement at the end of next month to address her osteoarthritis. Preoperative evaluation includes ensuring cardiac and pulmonary fitness for general anesthesia. 2. Pure hypercholesterolemia, unspecified E78.00 The patient's elevated cholesterol levels will be re-evaluated with a blood test, although it is not directly related to the preoperative assessment. 3. Hypothyroidism, unspecified E03.9 The patient is on levothyroxine 150 mcg for hypothyroidism, and a blood test is planned to reassess thyroid function. 4. right hip osteoarthritis Use walker prn. Follow up with ortho. Orders: Orders Lipid Panel Today E78.5 - Hyperlipidemia, unspecified Thyroid Stimulating Hormone Today E03.9 - Hypothyroidism, unspecified Complete Blood Count Auto Diff Today D64.9 - Anemia, unspecified Comprehensive [place]. Panel Fast Today Z01.818 - Encounter for other preprocedural examination
[2025-05-01 09:09] VITALS: BP 112/72; PULSE 77; TEMP 36.2; O2SAT 97; BMI 37.7
--- OUTSIDE RECORDS SUMMARY | 2025-05-01 10:26 | XMS_ITS | Clinical Summary ---
Author Organization [facility] Address [address] [place] [address] Care Team Providers Care Intake Coordinator Name Role Phone Unavailable Primary Care Provider [...] patient's age to complete this topic Insurance [place], [place] [facility] CARE < 65 [place] [id number]
--- OUTSIDE RECORDS SUMMARY | 2025-05-01 10:27 | XMS_ITS | Clinical Summary ---
Author Organization [facility] Address [address] [place] [address] Phone Care Team Providers Care Detention Deputy Name Role Phone Brianda Cotton MD Primary [...] file Medical Devices Not on file Insurance [facility] MEDICARE REPLACEMENT MEDICARE PART A & B [facility] MEDICARE REPLACEMENT MEDICARE PART A & B [facility] ONE CARE MEDICARE REPLACEMENT MEDICARE PART A & B [facility] CARE MEDICARE REPLACEMENT MEDICARE PART A & B [place] [facility] MEDIC[facility]PLACEMENT [facility] A & [facility] MEDICARE REPLACEMENT MEDICARE PART A & B [facility] MEDICARE REPLACEMENT MEDICARE REPLACEMENT MEDICARE REPLACEMENT CARE MEDICARE REPLACEMENT MEDICARE REPLACEMENT MEDICARE REPLACEMENT MEDICARE REPLACEMENT MEDICARE REPLACEMENT Care Teams Detention Deputy Relationship Specialty Start Date End Date Brianda Cotton MD [address] [place] [address] PCP - General Internal Medicine 12/21/24 Pcp, Unknown 12/21/24 Additional Source Comments The information contained in this document represents components of the legal health record. It is not the complete legal health record.[facility]
--- OUTSIDE RECORDS SUMMARY | 2025-05-01 10:27 | XMS_ITS | Patient Health Record ---
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
== END 2025-05-01 11:34 | disposition home or self-care (01) ==
LOC: HO.HMCH 09:03
PROVIDERS: PCP Internal Medicine; Visit Provider Internal Medicine
DX: Z01.818 Encounter for other preprocedural examination (principal); M16.11 Unilateral primary osteoarthritis, right hip; E03.9 Hypothyroidism, unspecified; F33.1 Major depressive disorder, recurrent, moderate

== ENCOUNTER → 2025-05-01 09:03 | Outpatient (BNVA) | payer OTHER, SELFPAY | PROVIDERS: PCP Internal Medicine; Visit Provider Internal Medicine | DX: Z01.818 Encounter for other preprocedural examination (principal); M16.11 Unilateral primary osteoarthritis, right hip; E78.00 Pure hypercholesterolemia, unspecified; E03.9 Hypothyroidism, unspecified; F33.1 Major depressive disorder, recurrent, moderate; D64.9 Anemia, unspecified | CPT/HCPCS: 96127; 99212 ==

== ENCOUNTER → 2025-05-07 12:48 | Outpatient (BNVA) | payer OTHER, SELFPAY | PROVIDERS: PCP Internal Medicine | DX: Z01.818 Encounter for other preprocedural examination (principal) ==

== ENCOUNTER 2025-05-08 13:49 | Outpatient (REF) | payer OTHER, SELFPAY ==
[2025-05-08 14:00] LABS: MANUAL DIFF FLAG NO
[2025-05-08 14:17] LABS: Hematocrit 36.5 % (37.0-47.0); Hemoglobin 11.7 g/dl (12.0-16.0); Imm Gran Abs Auto 0.01 X10*3/uL (0.00-0.03); Imm Gran Pct Auto 0.3 % (0.0-0.4); Lymphocytes Absolute Auto 1.2 X10*3/uL (1.2-4.9); Mean Corpuscular HGB Conc 32.1 g/dl (31.0-35.0); Mean Corpuscular Hemoglobin 29.5 pg (27.0-33.0); Mean Corpuscular Volume 92.2 fL (80.0-98.0); NRBC Abs Auto 0.000 X10*3/uL (0.0-0.012); NRBC Pct Auto 0.0 /100WBC (0.0-0.2); Platelet Count 174 X10*3/uL (160-400); Red Blood Count 3.96 X10*6/uL (4.20-5.50); White Blood Count 3.9 X10*3/uL (4.8-10.8)
[2025-05-08 14:46] LABS: Alanine Aminotransferase 16 U/L (0-31); Albumin Level 4.4 g/dL (3.5-5.0); Alkaline Phosphatase 85 U/L (39-117); Anion Gap 10 (12-20); Aspartate Amino Transferase 23 U/L (5-31); Blood Urea Nitrogen 24 mg/dL (9-16); Calcium 9.4 mg/dL (8.4-10.2); Carbon Dioxide 26 mmol/L (22-29); Chloride 109 mmol/L (96-108); Cholesterol 259 mg/dL (<200); Estimated Glomerular Filt Rate > 60; HDL Cholesterol 53 mg/dL (>40); Potassium 4.4 mmol/L (3.3-5.1); Sodium 141 mmol/L (135-145); Total Protein 6.9 g/dL (6.5-8.0); Triglycerides 95 mg/dL (<150)
[2025-05-08 15:03] LABS: Thyroid Stimulating Hormone 0.98 uIU/mL (0.32-4.0)
--- OUTSIDE RECORDS SUMMARY | 2025-05-08 15:08 | XMS_ITS | Clinical Summary ---
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
--- OUTSIDE RECORDS SUMMARY | 2025-05-08 15:08 | XMS_ITS | Clinical Summary ---
Author Organization [facility] Address [address] [place] [address] Phone Care Team Providers Care Daycare Manager Name Role Phone Brianda Cotton MD Primary [...] file Medical Devices Not on file Insurance [facility] REPLAC[facility] MEDICARE PART A & B [facility] MEDICARE REPLACEMENT MEDICARE PART A & B [facility] CARE MEDICARE REPLACEMENT MEDICARE PART A & B [place] [facility] ONE CARE MEDICARE REPLACEMENT MEDICARE PART A & B [facility] [facility] ONE [facility] MEDICARE REPLACEMENT MEDICARE PART A & [facility] CARE MEDICARE REPLACEMENT MEDICARE PART A & B [facility] MEDICARE REPLACEMENT MEDICARE REPLACEMENT MEDICARE REPLACEMENT CARE MEDICARE REPLACEMENT MEDICARE REPLACEMENT MEDICARE REPLACEMENT MEDICARE REPLACEMENT MEDICARE REPLACEMENT Care Teams Daycare Manager Relationship Specialty Start Date End Date Brianda Cotton MD [address] [place] [address] PCP - General Internal Medicine 12/21/24 Pcp, Unknown 12/21/24 Additional Source Comments The information contained in this document represents components of the legal health record. It is not the complete legal health record.[facility]
--- OUTSIDE RECORDS SUMMARY | 2025-05-08 15:08 | XMS_ITS | Patient Health Record ---
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
== END 2025-05-08 13:50 | disposition home or self-care (01) ==
LOC: HO.LAB 13:49
PROVIDERS: PCP Internal Medicine; Visit Provider Internal Medicine
DX: Z01.818 Encounter for other preprocedural examination (principal); E78.5 Hyperlipidemia, unspecified; E03.9 Hypothyroidism, unspecified; D64.9 Anemia, unspecified; F33.1 Major depressive disorder, recurrent, moderate; M47.27 Other spondylosis with radiculopathy, lumbosacral region; Z79.890 Hormone replacement therapy; Z79.899 Other long term (current) drug therapy
CPT/HCPCS: 36415; 80053; 80061; 84443; 85025; 96127; 99212

== ENCOUNTER 2025-05-08 16:37 | Outpatient (AMB) | payer OTHER, SELFPAY ==
[2025-05-08 16:41] VITALS: BP 124/86; PULSE 78; TEMP 36.1; O2SAT 97; BMI 37.9
--- NOTE | 2025-05-08 16:41 | MHC.PC.OV ---
Vital Signs 05/08/25 16:41 Height 5 ft 7 in Weight 242 lb 1.081 oz BMI 37.9 BP 124/86 Blood Pressure Location Lt brachial Position Sitting Pulse 78 Pulse Source Pulse Oximeter Temp 97.0 F Temp Source Temporal Artery Scan Pulse Oximetry (%) 97 Oxygen Delivery Method Room Air Intake Visit Reasons: THYROID 4 MONTHS Weight Control Engineer Required: No Accompanied by: Self / Same As Patient Allergies amoxicillin (Augmentin) Allergy (Intermediate, Verified 05/08/25 17:05) rash cat dander Allergy (Intermediate, Verified 05/08/25 17:05) Nasal congestion clavulanic acid (Augmentin) Allergy (Intermediate, Verified 05/08/25 17:05) rash trazodone (TRAZODONE) Allergy (Intermediate, Verified 05/08/25 17:05) Shortness of Breath Medication List - Last Reconciled 05/08/25 by Brianda Grant MD [4 wheel walker with seat As directed] acetaminophen 1,000 mg (2 x 500 mg) PO Q6H PRN 30 days albuterol sulfate 90 mcg/actuation (Ventolin HFA) 2 puffs inhalation Q6H PRN 30 days ascorbic acid (vitamin C) 100 mg PO QAM calcium carbonate (Calcium 600) 600 mg PO DAILY cholecalciferol (vitamin D3) 125 mcg PO QAM clonazepam 0.5 mg PO BID PRN docusate sodium (Colace) 200 mg (2 x 100 mg) PO BEDTIME 30 days epinephrine 0.3 mg IM ONCE PRN fluticasone propionate 50 mcg/actuation 1 spray intranasal DAILY PRN gabapentin 800 mg PO TID 90 days glucosamine HCl 500 mg PO QAM Grab bar As directed [hand held showerhead As directed] hydrocortisone 2.5% (Proctosol HC) 1 appl CA BEDTIME PRN levothyroxine 150 mcg PO DAILY 90 days loratadine (Allergy Relief (loratadine)) 10 mg PO QAM melatonin 5 mg PO BEDTIME meloxicam 15 mg PO QAM methylcellulose (laxative) (Citrucel) 500 mg PO BID multivitamin 1 tab PO QAM pantoprazole 40 mg PO QAM polyethylene glycol 3350 (Miralax) 17 grams PO QAM PRN quetiapine 600 mg PO BEDTIME [Shoe lift As directed] [toilet seat elevator As directed] tramadol 100 mg (2 x 50 mg) PO Q6H PRN 30 days valacyclovir 1,000 mg PO QAM venlafaxine ER 150 mg PO QAM venlafaxine ER 75 mg PO QAM walker (Ultra-Light Rollator misc) As directed walker Folding Front wheeled walker duration 99 days Tobacco use date assessed: 05/01/25 Fall risk assessment: No Falls in past year Last assessed Fall Risk: 05/08/25 Dental Screening Dental Screen Date: 05/08/25 Did you have a dental visit in the last 12 months?: Yes Did you have a dental problem in the last 6 months where you did not have access to dental care?: No Was dental information given to patient?: Patient has dentist HPI HPI Comments History of Present Illness Details The patient is a 64-year-old female presenting with chronic pain and anemia. The chronic pain significantly affects her daily activities and is worsened by movement until she can sit. She is unable to attend pain management until after her surgery, expected in August or September. Her anemia is slightly low at 11.7 g/dL, down from 12.3 g/dL in February, with no active bleeding noted. She reports hypercholesterolemia, with levels rising from 230 mg/dL to 259 mg/dL, linked to dietary habits, and is not on cholesterol medication. The patient has a history of allergic rhinitis, improved after allergy shots. She is treated for depression with venlafaxine and clonazepam, used sparingly due to memory concerns. There is a suspicion of bronchitis due to yellow-green phlegm, but her respiratory exam was normal. [facility] Medical History History of blood transfusion Environmental and seasonal allergies History of revision of total replacement of right knee joint Back pain Depression Bronchitis Asthma Right femoral fracture Diverticulosis Mild major depression Neck pain BMI 34.0-34.9,adult Leukopenia Sleep apnea Liver cyst Obesity (BMI 30-39.9) History of small bowel obstruction Lumbar degenerative disc disease Hematuria Migraines IBS (irritable bowel syndrome) Anemia Arthritis Hypothyroid GERD (gastroesophageal reflux disease) Surgical History Hx of foot surgery (04/2024) History of removal of retained hardware (03/07/25) History of left hip replacement (12/2024) Hx of elbow surgery History of surgical removal of skin lesion History of ankle surgery History of surgery History of hand surgery Hx of foot surgery History of esophagogastroduodenoscopy (EGD) History of surgery H/O hernia repair History of endometrial ablation H/O tubal ligation History of delivery History of bladder surgery Hx of colonoscopy (~02/11/23) History of back surgery H/O: hysterectomy History of bilateral knee replacement Family History Father FH: prostate cancer Mother Breast cancer Bladder cancer Social History Household Members: None Housing: Apartment Are you a primary child care lead teacher to a significant other at home: No 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 have visiting nurse or other home services: No 75 years or older and lives alone: No Alcohol intake: never Patient Tobacco Use Status: Former Tobacco user Tobacco use type: Cigarette Years Smoked: 24 e-Cigarette/Vaping Use: Never Used Second Hand Smoke Exposure: No Substance Use Type: Marijuana service: No Current occupational status: unemployed and disabled Cognitive needs: Yes Hearing needs: No Vision needs: Yes Questionnaire PHQ-9 Over the last 2 weeks, how often have you been bothered by any of the following problems? 1. Little interest or pleasure in doing things: several days 2. Feeling down, depressed, or hopeless: several days 3. Trouble falling or staying asleep, or sleeping too much: several days 4. Feeling tired or having little energy: several days 5. Poor appetite or overeating: several days 6. Feeling bad about yourself - or that you are a failure or have let yourself or your family down: not at all 7. Trouble concentrating on things, such as reading the newspaper or watching television: not at all 8. Moving or speaking so slowly that other people could have noticed. Or the opposite - being so fidgety or restless that you have been moving around a lot more than usual: not at all 9. Thoughts that you would be better off or of hurting yourself in some way: not at all Total score: 5 Depression Screening Interpretation: Positive Depression Screening Follow-up: Existing condition, In treatment, Community Mental Health Worker F/U and Follow-up Visit Requested Depression Screening Done: Yes 27211 - PHQ-9 Billing: Yes Source: Developed by Drs. Michael Neville, Morena Olson, Jt Hawkins and colleagues, with an educational ayan from [facility]. Thrive Questionnaire Date Thrive assessed: 12/13/24 I am a: Patient What is your living situation today?: I have a steady place to live Within the past 12 months, did the food you bought not last and you didn't have the money to get more?: Often true Within the past 12 months, did you worry whether your food would run out before you got money to buy more?: Sometimes True Do you have trouble paying for medicines?: No Do you have trouble getting transportation to medical appointments?: No Do you have trouble paying your heating and electricity bill?: No Do you have trouble taking care of your child, family member or friend?: No Do you have trouble with day-to-day activities such as bathing, preparing meals, shopping, managing finances, etc.?: Yes Are you currently unemployed and looking for a job?: No Are you interested in more education?: No Please select the resources that you would like help with: None Currently or been in a relationship where the following occur: No concerns reported THRIVE Score: 2 AUDIT C Alcohol Use Questionnaire (AUDIT-C) 1. How often do you have a drink containing alcohol?: Never 3. How often do you have six or more drinks on one occasion?: Never Total Score: 0 Score Reviewed/Action Taken: No DB-7 AMB Questionnaire DB-7 Date DB - 7 assessed: 10/24/24 Feeling nervous, anxious, or on edge: 0 = Not at all Not being able to stop or control worryin = Not at all Worrying too much about different things: 0 = Not at all Trouble relaxin = Several days Being so restless that it is hard to sit still: 0 = Not at all Becoming easily annoyed or irritable: 0 = Not at all Feeling afraid as if something awful might happen: 0 = Not at all Total DB-7 score (0-4 normal; 5-9 mild; 10-14 moderate; 15-21 severe): 1 Source: Developed by Morena WinterW. Wesley, Jt Hawkins and colleagues, with an educational ayan from [facility]. DB-7 Assessment Billing DB-7 Assessment Tool: DB-7 Assessment 40759 Review of Systems Const All systems reviewed & are unremarkable except as noted in HPI and below Card Denies chest pain at rest, Denies chest pain with activity, Denies edema, Denies irregular heart rhythm, Denies claudication, Denies dyspnea, Denies dyspnea on exertion, Denies orthopnea, Denies paroxysmal nocturnal dyspnea and Denies slow heart rate Resp Denies cough, Denies dyspnea and Denies dyspnea on exertion GI Denies abdominal pain, Denies change in bowel habits, Denies excessive flatus, Denies nausea and Denies vomiting Physical exam (Primary Care) Vital Signs: Last Vital Signs Temp 97.0 F 05/08/25 16:41 Pulse 78 05/08/25 16:41 BP 124/86 05/08/25 16:41 Pulse Ox 97 05/08/25 16:41 Oxygen Delivery Method Room Air 05/08/25 16:41 BMI result Body Mass Index 37.9 BMI Assessment/Plan discussion: High BMI High, discussed plan: lifestyle, weight reduction, dietary and physical activity Tobacco/Smoking Status: Tobacco use Status Tobacco use date assessed 05/01/25 05/08/25 16:45 Patient Tobacco Use Status Former Tobacco user 05/08/25 16:45 Tobacco use type Cigarette 05/08/25 16:45 e-Cigarette/Vaping Use Never Used 05/08/25 16:45 PHQ-9: PHQ-9 Score PHQ-9: Total score 5 05/08/25 17:49 Depression Screening Interpretation: Positive Depression Screening Follow-up: Existing condition, In treatment, Community Mental Health Worker F/U and Follow-up Visit Requested Thrive Assessment: Date of Thrive Assessment Date Thrive assessed 12/13/24 05/08/25 16:45 Currently or been in a relationship where the following occur: No concerns reported Const Limitations: ambulation with walker Resp Effort & Inspection: normal respiratory effort Auscultation: clear to auscultation bilaterally Cardio Jugular venous distension: no JVD Rate: regular rate Rhythm: regular rhythm Heart sounds: S1 normal heart sound present and S2 normal heart sound present Extrem General: Yes full ROM Coding Level of Care Code Est Pt Level 4 (62783) Complex EM visit Add On G2211 Diagnoses Moderate recurrent major depression F33.1 Hypothyroid E03.9 Anemia D64.9 Spondylosis of lumbosacral spine with radiculopathy M47.27 Additional Codes DB-7 Assessment Billing - DB-7 Assessment Tool: DB-7 Assessment 46206 ([id number]) PHQ-9 - 88045 - PHQ-9 Billing: Yes ([id number]) Time Spent (min) 23 Assessment & Plan Assessment & Plan (1) Moderate recurrent major depression: Code(s): F33.1 - Major depressive disorder, recurrent, moderate Category: Medical (2) Hypothyroid: Code(s): E03.9 - Hypothyroidism, unspecified Category: Medical (3) Anemia: Comment: Referred initially question it causes by meloxicam which was discontinued. labs seem to be trending up-nearly normal Normal ferritin and iron studies. No GI complaints Code(s): D64.9 - Anemia, unspecified Category: Medical (4) Spondylosis of lumbosacral spine with radiculopathy: Code(s): M47.27 - Other spondylosis with radiculopathy, lumbosacral region Category: Medical Plan Plan Patient was informed and verbally consented to the use of an ambient scribe for clinic note documentation during this visit. 1. Chronic Pain The patient is experiencing significant chronic pain, which is exacerbated by movement and alleviated by sitting. She is unable to attend pain management until after her surgery, anticipated in August or September. 2. Anemia The patient's hemoglobin level is slightly low at 11.7 g/dL, down from 12.3 g/dL in February. There is no active bleeding, and the anemia will be monitored without immediate intervention. 3. Hypercholesterolemia The patient's cholesterol level has increased from 230 mg/dL to 259 mg/dL, attributed to dietary habits. She is not currently on medication for cholesterol management, and dietary modifications are recommended. 4. Allergic Rhinitis The patient has a history of allergic rhinitis, previously exacerbated by cat dander, but reports improvement following allergy shots. 5. Depression The patient is being treated for depression with venlafaxine and clonazepam, which she uses sparingly due to concerns about memory effects. 6. Preventative Care: Monitoring Of Thyroid Function The patient's thyroid function is being monitored, with no current need for medication adjustment. Orders: Orders Thyroid Stimulating Hormone 4 Months E03.9 - Hypothyroidism, unspecified
== END 2025-05-08 17:20 | disposition home or self-care (01) ==
LOC: HO.HMCH 16:38
PROVIDERS: PCP Internal Medicine; Visit Provider Internal Medicine
DX: F33.1 Major depressive disorder, recurrent, moderate (principal); E03.9 Hypothyroidism, unspecified; D64.9 Anemia, unspecified; M47.27 Other spondylosis with radiculopathy, lumbosacral region

== ENCOUNTER 2025-05-31 09:17 | Outpatient (AMB) | payer OTHER, SELFPAY ==
--- NOTE | 2025-05-31 08:55 | A.OFFVIS_ITS ---
Intake Visit Reasons: Pre-Op: R NAYA w/NE 06/06/25 Intake Note: Jr is a 64 year old female who presents today for a pre op appointment for her right total hip arthroplasty on 06/06/[address] Gibbs. Patient was given the pain management form. Patient was made aware of getting labs after her visit. Allergies amoxicillin (Augmentin) Allergy (Intermediate, Verified 05/31/25 09:39) rash cat dander Allergy (Intermediate, Verified 05/31/25 09:39) Nasal congestion clavulanic acid (Augmentin) Allergy (Intermediate, Verified 05/31/25 09:39) rash trazodone (TRAZODONE) Allergy (Intermediate, Verified 05/31/25 09:39) Shortness of Breath HPI HPI Pre-Op: R NAYA w/NE 06/06/25: Details: Ms. Mcnamara is a 64-year-old female with a history of end-stage osteoarthritis of the right hip who is scheduled for a total hip arthroplasty. They have experienced progressive hip pain over the past 3+ years. Pain is described as aching/sharp/throbbing, worsened by prolonged standing, walking, and stair climbing. Conservative treatments including NSAIDs and activity modification provided only temporary or minimal relief. The patient reports significant limitations in daily activities and decreased quality of life due to pain and stiffness. Of note, the patient had a right femur retrograde IM nail performed on 01/30/2022. Removal of orthopedic hardware was performed on 03/07/[address] Gibbs in preparation of right total hip arthroplasty. The patient is otherwise in their usual state of health. [facility] Medical History History of blood transfusion Environmental and seasonal allergies History of revision of total replacement of right knee joint Back pain Depression Bronchitis Asthma Right femoral fracture Diverticulosis Mild major depression Neck pain BMI 34.0-34.9,adult Leukopenia Sleep apnea Liver cyst Obesity (BMI 30-39.9) History of small bowel obstruction Lumbar degenerative disc disease Hematuria Migraines IBS (irritable bowel syndrome) Anemia Arthritis Hypothyroid GERD (gastroesophageal reflux disease) Surgical History Hx of foot surgery (04/2024) History of removal of retained hardware (03/07/25) History of left hip replacement (12/2024) Hx of elbow surgery History of surgical removal of skin lesion History of ankle surgery History of surgery History of hand surgery Hx of foot surgery History of esophagogastroduodenoscopy (EGD) History of surgery H/O hernia repair History of endometrial ablation H/O tubal ligation History of delivery History of bladder surgery Hx of colonoscopy (~02/11/23) History of back surgery H/O: hysterectomy History of bilateral knee replacement Family History Father FH: prostate cancer Mother Breast cancer Bladder cancer Social History Household Members: None Housing: Apartment Are you a primary patient care director to a significant other at home: No 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 have visiting nurse or other home services: No Alcohol intake: never Patient Tobacco Use Status: Former Tobacco user Tobacco use type: Cigarette Years Smoked: 24 e-Cigarette/Vaping Use: Never Used Second Hand Smoke Exposure: No Substance Use Type: Marijuana service: No Current occupational status: unemployed and disabled Cognitive needs: Yes Hearing needs: No Vision needs: Yes Review of Systems Const All systems reviewed & are unremarkable except as noted in HPI and below Physical Exam Const General: cooperative, healthy appearing and no acute distress Resp Effort & Inspection: normal respiratory effort and able to speak in complete sentences Extrem Other: Right hip: Normal to inspection. No ecchymosis, erythema, or breaks in the skin. Limited internal and external rotation with associated groin pain. No tenderness to palpation over the greater trochanteric bursa. NVI. Psych Appearance: grossly normal Mental Status: mental status grossly normal Attitude: cooperative Assessment & Plan Assessment & Plan (1) Osteoarthritis of right hip: Code(s): M16.11 - Unilateral primary osteoarthritis, right hip Category: Medical Plan Patient had her PCP clearance with Dr. Brianda Grant on 04/23/2025 where she underwent preoperative evaluation and was sent for labs and EKG. An addendum to this note was performed on 05/23/[address] Trevor Grant states labs and EKG were reviewed. Patient is medically clear for medium risk surgery. She has 0.4% cardiac risk of complication by RCRI. . Of note preoperative labs were significant for H&H of 11.7/36.5. Orthopedic team we will monitor H&H postoperatively. I discussed in detail the procedure and what to expect pre and post operatively.? We discussed the risks, benefits and alternatives to the surgery as well as the rehabilitation course. The following topics were reviewed in detail with the patient: Risks: Risks include, but are not limited to infection, bleeding, blood clots, nerve injury, ongoing pain, ongoing swelling, ongoing stiffness, perioperative risk of injury to bones and soft tissues, prosthesis loosening or wear, anesthesia related complications, revision surgery, amputation, and mortality. Expected Benefits: Improved function, reduced pain, better quality of life. Alternatives: Continued non-operative treatment, joint injections, bracing, physical therapy or no surgery. Risks of not moving forward with surgery: Progression of joint disease and damage, worsening function, fracture, and/or pain. The patient had ample opportunity to ask questions. All questions were answered to the patient's satisfaction. The patient verbalized understanding and agreed to move forward with right total hip arthroplasty with Dr. Gibbs. The patient demonstrates understanding of the risks, benefits and alternatives. The surgical consent form was given to the patient for additional review and signed by the patient with myself as a witness.? Postoperative recovery notes: Preoperative labs were significant for H&H of 11.7/36.5. Orthopedic team we will monitor H&H postoperatively. [place] [facility] [place] Has a Walker Lovenox for DVT ppx Orders: Orders Basic Metabolic Panel Today Z01.818 - Encounter for other preprocedural examination XR hip RT min 2V Today M25.559 - Pain in unspecified hip Complete Blood Count no Diff Today Z01.818 - Encounter for other preprocedural examination Type and Screen Today Z01.818 - Encounter for other preprocedural examination Coding Level of Care Code Global (17440) Diagnoses Osteoarthritis of right hip M16.11
--- OUTSIDE RECORDS SUMMARY | 2025-05-31 10:15 | XMS_ITS | Clinical Summary ---
Author Organization [employer] Address [address] [place] [address] Care Team Providers Care Electronics Commodity Manager Name Role Phone Unavailable Primary Care [...] patient's age to complete this topic Insurance [place], [place] [facility] ONE CARE < 65 [place] [id number]
--- OUTSIDE RECORDS SUMMARY | 2025-05-31 10:15 | XMS_ITS | Clinical Summary ---
Author Organization [facility] Address [address] [place] [address] Phone Care Team Providers Care Product Test Specialist Name Role Phone Brianda Cotton MD Primary [...] Not on file Insurance [facility] C[facility] MEDICARE REPLACEMENT MEDICARE PART A & B [facility] CARE MEDICARE REPLACEMENT MEDICARE PART A & B [facility] ONE CARE MEDICARE REPLACEMENT MEDICARE PART A & B [facility] ONE CARE MEDICARE REPLACEMENT MEDICARE PART A & B [facility] ONE [facility] MEDICARE [facility]PLACEMENT MEDICARE PART A & B [facility] ONE CARE MEDICARE REPLACEMENT MEDICARE PART A & B [facility] CARE MEDICARE REPLACEMENT MEDICARE REPLACEMENT MEDICARE REPLACEMENT CARE MEDICARE REPLACEMENT MEDICARE REPLACEMENT MEDICARE REPLACEMENT MEDICARE REPLACEMENT MEDICARE REPLACEMENT Care Teams Product Test Specialist Relationship Specialty Start Date End Date Brianda Cotton MD [address] [place] [address] PCP - General Internal Medicine 12/21/24 Pcp, Unknown 12/21/24 Additional Source Comments The information contained in this document represents components of the legal health record. It is not the complete legal health record.[facility]
== END 2025-05-31 10:00 | disposition home or self-care (01) ==
LOC: HO.HOS 09:18
PROVIDERS: PCP Internal Medicine; Visit Provider Physician Assistant
DX: M16.11 Unilateral primary osteoarthritis, right hip (principal)
CPT/HCPCS: 99024

== ENCOUNTER → 2025-05-31 09:20 | Outpatient (BNV) | payer OTHER, SELFPAY | PROVIDERS: Visit Provider Radiology Vascular & Interventional Radiology | DX: M16.11 Unilateral primary osteoarthritis, right hip (principal); Z96.642 Presence of left artificial hip joint | CPT/HCPCS: 73502 ==

== ENCOUNTER 2025-05-31 10:15 | Outpatient (REF) | payer OTHER, SELFPAY ==
--- NOTE | ~2025-05-31 | XR_ITS ---
CLINICAL HISTORY: M25.559 - Pain in unspecified hip --- Additional Notes or Special Instructions: pre op images 4 view, pelvis and right hip Comparison: DX/SR - XR FEMUR 2 VIEWS RIGHT - 03/13/25 14:36 EDT Findings: Severe right femoroacetabular joint space narrowing and marginal osteophyte formation is present with sclerotic change. Left hip arthroplasty is noted. No acute fracture or dislocation is identified. Right pelvic phlebolith is present. IMPRESSION: 1. Severe degenerative changes in the right femoroacetabular joint. 2. Left hip arthroplasty. This document has been electronically signed by: Jessica Murguia on 06/01/2025 10:13:29
[2025-05-31 11:23] LABS: Hematocrit 36.5 % (37.0-47.0); Hemoglobin 11.9 g/dl (12.0-16.0); Mean Corpuscular HGB Conc 32.6 g/dl (31.0-35.0); Mean Corpuscular Hemoglobin 30.1 pg (27.0-33.0); Mean Corpuscular Volume 92.2 fL (80.0-98.0); NRBC Abs Auto 0.000 X10*3/uL (0.0-0.012); NRBC Pct Auto 0.0 /100WBC (0.0-0.2); Platelet Count 222 X10*3/uL (160-400); Red Blood Count 3.96 X10*6/uL (4.20-5.50); White Blood Count 4.4 X10*3/uL (4.8-10.8)
[2025-05-31 11:49] LABS: Anion Gap 13 (12-20); Blood Urea Nitrogen 19 mg/dL (9-16); Calcium 9.5 mg/dL (8.4-10.2); Carbon Dioxide 26 mmol/L (22-29); Chloride 106 mmol/L (96-108); Estimated Glomerular Filt Rate > 60; Potassium 4.0 mmol/L (3.3-5.1); Sodium 141 mmol/L (135-145)
== END 2025-05-31 10:16 | disposition home or self-care (01) ==
LOC: HO.XRAY 10:15
PROVIDERS: Physician Assistant; Visit Provider Orthopaedic Surgery
DX: Z01.818 Encounter for other preprocedural examination (principal); M16.11 Unilateral primary osteoarthritis, right hip
CPT/HCPCS: 36415; 73502; 80048; 85027; 86850; 86900; 86901; 99212

== ENCOUNTER 2025-06-06 05:41 | Day surgery (SDC) | payer OTHER, SELFPAY ==
--- OUTSIDE RECORDS SUMMARY | 2024-02-03 03:54 | XMS_ITS | Continuity of Care Document ---
Author Organization [facility] Address [address] [place] [address] Dr Cano [address] [place] [address] Phone Care Team Providers Care Field Operations Farm Manager Name Role Phone Brooks WHITTEN, DOMINIC, Michael [...] Providers Copied on Encounter [facility], [address] [place] [address] Dr Cano [address] Alanna Buck MD, [id number], tel:[phone] NIEVES Mondragon No Information 4 Brooks WHITTEN RVT, RPVI Robert. [address] [place] [address], [facility] [place] [id number] , [place]. tel:[phone] [place] [facility], [address] [place] [address] Dr Cano 1000[facility] 1000Alanna MD, [id number], tel:[phone] NIEVES Guido [place] [facility] No Information 4 Brooks WHITTEN RVT, RPVI Robert. [address], [address], [facility] [place], [id number] , [place]. tel:[phone] Offic Cons New/estab Mod 40 Mi- CT & [place] [facility], [address] [place] [address] Dr Cano [address], [place] Alanna, [id number], tel:[phone] [facility] Varicose veins of bilateral lower extremities with painPain in right legPain in left legRestless legs syndromeVenous insufficiency (chronic) (peripheral)Loc alized edema 4 Brooks WHITTEN RVT, FRANCHESCA Rodriguez. [address] [place] [address], [place], [place], [id number] , . tel:[phone] [facility], [address] [place] [address] Dr Cano [address], [place] Al[place], [id number], tel:[phone] [facility] Chronic venous hypertension (idiopathic) with other complications of bilateral lower extremity 4 Brooks WHITTEN RVT, FRANCHESCA Rodriguez. [address] [place] [address], [place], [place], [id number] , . tel:[phone] Referring Provider: Michael Guy MD, DOMINIC, FRANCHESCA, [address] [place] [address], [place], [address] . tel:[phone] Family History Family Member Type Diagnosis Age At Onset No Information Payers Payer name Insurance type Covered democrat ID Authorsuea skyler(s) [facility] CI [id number] Social History Type Description Quantity Date Captured [...]
--- OUTSIDE RECORDS SUMMARY | 2025-04-16 07:50 | XMS_ITS | Clinical Summary ---
Author Organization [employer] Address [address] [facility] [address]t [place] [address] Care Team Providers Care Global Program Director Name Role Phone Unavailable Primary Care [...] patient's age to complete this topic Insurance [place], [place] [facility] ONE CARE < 65 [place] [id number]
--- OUTSIDE RECORDS SUMMARY | 2025-04-16 07:50 | XMS_ITS | Clinical Summary ---
Author Organization [facility] Address [address] [place] [address] Phone Care Team Providers Care Technical Communication Teacher Name Role Phone Brianda Cotton MD Primary [...] file Medical Devices Not on file Insurance [facility] MEDICARE REPLACEMENT MEDICARE PART A & B [facility] MEDICARE REPLACEMENT MEDICARE PART A & B [facility] MEDICARE REPLACEMENT MEDICARE PART A & B [facility] MEDICARE REPLACEMENT MEDICARE PART A & B [facility] MEDICARE REPLACEMENT [facility] MEDICARE REPLACEMENT MEDICARE PART A & B [facility] MEDICARE REPLACEMENT MEDICARE REPLACEMENT MEDICARE REPLACEMENT CARE MEDICARE REPLACEMENT MEDICARE REPLACEMENT MEDICARE REPLACEMENT MEDICARE REPLACEMENT MEDICARE REPLACEMENT Care Teams Technical Communication Teacher Relationship Specialty Start Date End Date Brianda Cotton MD [address] [place] [address] PCP - General Internal Medicine 12/21/24 Pcp, Unknown 12/21/24 Additional Source Comments The information contained in this document represents components of the legal health record. It is not the complete legal health record.[facility]
--- OUTSIDE RECORDS SUMMARY | 2025-04-16 07:50 | XMS_ITS | Patient Health Record ---
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
[2025-05-08 12:50] VITALS: BP 111/59; PULSE 75; RESP 16; O2SAT 98; BMI 37.0
--- NOTE | 2025-05-08 13:27 | HO.ANESPROP2 ---
Documented by User: Symone Beal NP 05/23/25 14:24 HPI - Anesthesia Eval Consult details Narrative: 64 yr old female for right Hip Total Replacement scheduled for 06/06/25, seen in PAT 05/08/25 s/p left hip replacement 12/2024 s/p hardware removal of right femur 03/07/25 with GA, LMA size 4 Saw PCP 05/01/25 for preop clearance, pending labs to be done 05/08/25. No recent illness No CP/SOB with light activity using her walking; needs to sit due to hip pain MARLENY: not using CPAP Asthma: well controlled; only needs albuterol when she has bronchitis PMFSH Active Problems Active Problems: All Active Problems Pre-op evaluation (Acute) Retained orthopedic hardware (Acute) Osteoarthritis of right hip (Acute) Status post total replacement of left hip (Acute) Lump in neck (Acute) Pre-op evaluation (Acute) Left hip pain (Acute) Bilateral primary osteoarthritis of hip (Acute) Bilateral hip pain (Acute) Muscle spasm of back (Acute) Left elbow pain (Acute) Gastritis (Acute) Hemorrhoids (Acute) Diverticulosis (Acute) Ingrown toenail (Acute) Lumbar pain (Acute) Physical exam (Acute) Poor historian (Acute) Superficial burn (Acute) Wound (Acute) Upper respiratory tract infection (Acute) Moderate recurrent major depression (Acute) Chronic constipation (Acute) Encounter for screening colonoscopy (Acute) Low TSH level (Acute) Failed back syndrome (Acute) Spondylosis of lumbosacral spine with radiculopathy (Acute) Umbilical hernia (Acute) MARLENY (obstructive sleep apnea) (Acute) Hypothyroid (Acute) Leucopenia (Chronic) Tracheobronchitis (Acute) Right femoral fracture (Acute) Hx of colonoscopy (Acute ~02/11/23) Anemia (Acute) Hypothyroid (Acute) GERD (gastroesophageal reflux disease) (Acute) Hematuria (Acute) Lumbar degenerative disc disease (Acute) History of small bowel obstruction (Acute) Obesity (BMI 30-39.9) (Acute) Liver cyst (Acute) BMI 34.0-34.9,adult (Acute) Neck pain (Acute) Past Medical History Medical History History of blood transfusion Environmental and seasonal allergies History of revision of total replacement of right knee joint Back pain Depression Bronchitis Asthma Right femoral fracture Diverticulosis Mild major depression Neck pain BMI 34.0-34.9,adult Leukopenia Sleep apnea Liver cyst Obesity (BMI 30-39.9) History of small bowel obstruction Lumbar degenerative disc disease Hematuria Migraines IBS (irritable bowel syndrome) Anemia Arthritis Hypothyroid GERD (gastroesophageal reflux disease) Family History Family History Father FH: prostate cancer Mother Breast cancer Bladder cancer Family history of problems with anesthesia: No Surgical History Surgical History Hx of foot surgery (04/2024) History of removal of retained hardware (03/07/25) History of left hip replacement (12/2024) Hx of elbow surgery History of surgical removal of skin lesion History of ankle surgery History of surgery History of hand surgery Hx of foot surgery History of esophagogastroduodenoscopy (EGD) History of surgery H/O hernia repair History of endometrial ablation H/O tubal ligation History of delivery History of bladder surgery Hx of colonoscopy (~02/11/23) History of back surgery H/O: hysterectomy History of bilateral knee replacement History of Problems with Anesthesia: No Social History Social History Household Members: None Housing: Apartment Are you a primary intensive care specialist to a significant other at home: No 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 have visiting nurse or other home services: No Alcohol intake: never Patient Tobacco Use Status: Former Tobacco user Tobacco use type: Cigarette Years Smoked: 24 Smoked in Last 30 Days: No e-Cigarette/Vaping Use: Never Used Second Hand Smoke Exposure: No Use of substances other than those prescribed or required for medical reasons: Yes Substance Use Type: Marijuana Substance Use Type Other:: edibles Substance Use Frequency: Daily Have you been hit, kicked, punched, or otherwise hurt by someone within the past year? If so, by whom?: No Are you DNR?: No Advance Directives: No Advance Directives Information Provided: Yes Advance Directives on File: No Poor oral hygiene: Yes (full dentures) service: No Current occupational status: unemployed and disabled Cognitive needs: Yes Hearing needs: No Vision needs: Yes Meds Allergies Allergy/AdvReac Type Severity Reaction Status Date / Time amoxicillin (Augmentin) Allergy Intermediate rash Verified 05/31/25 09:39 cat dander Allergy Intermediate Nasal Verified 05/31/25 09:39 congestion clavulanic acid (Augmentin) Allergy Intermediate rash Verified 05/31/25 09:39 trazodone (TRAZODONE) Allergy Intermediate Shortness Verified 05/31/25 09:39 of Breath Home Medications ?Medication ?Instructions ?Recorded ?Confirmed ?Last Taken ?Type glucosamine HCl 500 mg tablet 500 mg PO QAM 10/01/20 05/08/25 06/25/23 05:00 History multivitamin 1 tab PO QAM 10/01/20 05/08/25 06/25/23 05:00 History clonazepam 0.5 mg tablet 0.5 mg PO BID PRN Anxiety 04/04/21 05/08/25 01/27/22 History melatonin 5 mg tablet 5 mg PO BEDTIME 04/04/21 05/08/25 01/27/22 History ascorbic acid (vitamin C) 100 mg 100 mg PO QAM 01/28/22 05/08/25 06/25/23 05:00 History tablet quetiapine 300 mg tablet 600 mg PO BEDTIME 08/05/23 05/08/25 Unknown History venlafaxine 150 mg 150 mg PO QAM 08/05/23 05/08/25 Unknown History capsule,extended release 24 hr venlafaxine 75 mg capsule,extended 75 mg PO QAM 08/05/23 05/08/25 Unknown History release 24 hr meloxicam 15 mg tablet 15 mg PO QAM 12/13/23 05/08/25 Unknown History epinephrine 0.3 mg/0.3 mL 0.3 mg IM ONCE PRN anaphylaxis 03/27/24 05/08/25 Unknown History injection, auto-injector fluticasone propionate 50 1 spray intranasal DAILY PRN 03/27/24 05/08/25 Unknown History mcg/actuation nasal Allergy Symptoms spray,suspension cholecalciferol (vitamin D3) 125 125 mcg PO QAM 10/18/24 05/08/25 Unknown History mcg (5,000 unit) capsule loratadine 10 mg tablet (Allergy 10 mg PO QAM 11/14/24 05/08/25 Unknown History Relief (loratadine)) pantoprazole 40 mg tablet,delayed 40 mg PO QAM 11/14/24 06/06/25 06/06/25 05:00 History release polyethylene glycol 3350 17 gram 17 g PO QAM PRN Constipation 11/14/24 05/08/25 Unknown History oral powder packet (Miralax) valacyclovir 1 gram tablet 1,000 mg PO QAM 11/14/24 05/08/25 Unknown History calcium carbonate (Calcium 600) 600 mg PO DAILY 02/21/25 05/08/25 Unknown History Exam Height,Weight and Vital Signs: Height 5 ft 7 in Weight 107.048 kg Last Vital Signs Pulse 75 05/08/25 12:50 Resp 16 05/08/25 12:50 BP 111/59 L 05/08/25 12:50 Pulse Ox 98 05/08/25 12:50 O2 Del Method Room Air 05/08/25 12:50 Pertinent Lab Results Pertinent Lab Results: Laboratory Tests 05/08/25 13:58 WBC 3.9 L RBC 3.96 L Hgb 11.7 L Hct 36.5 L Plt Count 174 Sodium 141 Potassium 4.4 BUN 24 H Creatinine 0.67 Narrative Narrative: EKG 11/2024 Vent. Rate : 69 BPM Atrial Rate : 69 BPM P-R Int : 186 ms QRS Dur : 88 ms QT Int : 398 ms P-R-T Axes : 74 62 72 degrees QTcB Int : 426 ms Normal sinus rhythm Normal ECG When compared with ECG of 28-Jan-2023 17:14, No significant change was found Airway TM Dist: >3cm Neck ROM: Full Denture: Upper and Lower Assessment and Plan Final Anesthetic Review Family History of Problems with Anesthesia: No History of Problems with Anesthesia: No Documented by User: Humaira Tidwell MD 06/06/25 08:[facility] Past Medical History Medical History History of blood transfusion Environmental and seasonal allergies History of revision of total replacement of right knee joint Back pain Depression Bronchitis Asthma Right femoral fracture Diverticulosis Mild major depression Neck pain BMI 34.0-34.9,adult Leukopenia Sleep apnea Liver cyst Obesity (BMI 30-39.9) History of small bowel obstruction Lumbar degenerative disc disease Hematuria Migraines IBS (irritable bowel syndrome) Anemia Arthritis Hypothyroid GERD (gastroesophageal reflux disease) Family History Family History Father FH: prostate cancer Mother Breast cancer Bladder cancer Surgical History Surgical History Hx of foot surgery (04/2024) History of removal of retained hardware (03/07/25) History of left hip replacement (12/2024) Hx of elbow surgery History of surgical removal of skin lesion History of ankle surgery History of surgery History of hand surgery Hx of foot surgery History of esophagogastroduodenoscopy (EGD) History of surgery H/O hernia repair History of endometrial ablation H/O tubal ligation History of delivery History of bladder surgery Hx of colonoscopy (~02/11/23) History of back surgery H/O: hysterectomy History of bilateral knee replacement Social History Social History Household Members: None Housing: Apartment Are you a primary intensive care specialist to a significant other at home: No 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 have visiting nurse or other home services: No Alcohol intake: never Patient Tobacco Use Status: Former Tobacco user Tobacco use type: Cigarette Years Smoked: 24 Smoked in Last 30 Days: No e-Cigarette/Vaping Use: Never Used Second Hand Smoke Exposure: No Use of substances other than those prescribed or required for medical reasons: Yes Substance Use Type: Marijuana Substance Use Type Other:: edibles Substance Use Frequency: Daily Have you been hit, kicked, punched, or otherwise hurt by someone within the past year? If so, by whom?: No Are you DNR?: No Advance Directives: No Advance Directives Information Provided: Yes Advance Directives on File: No Poor oral hygiene: Yes (full dentures) service: No Current occupational status: unemployed and disabled Cognitive needs: Yes Hearing needs: No Vision needs: Yes Meds Allergies Allergy/AdvReac Type Severity Reaction Status Date / Time amoxicillin (Augmentin) Allergy Intermediate rash Verified 05/31/25 09:39 cat dander Allergy Intermediate Nasal Verified 05/31/25 09:39 congestion clavulanic acid (Augmentin) Allergy Intermediate rash Verified 05/31/25 09:39 trazodone (TRAZODONE) Allergy Intermediate Shortness Verified 05/31/25 09:39 of Breath Home Medications ?Medication ?Instructions ?Recorded ?Confirmed ?Last Taken ?Type glucosamine HCl 500 mg tablet 500 mg PO QAM 10/01/20 05/08/25 06/25/23 05:00 History multivitamin 1 tab PO QAM 10/01/20 05/08/25 06/25/23 05:00 History clonazepam 0.5 mg tablet 0.5 mg PO BID PRN Anxiety 04/04/21 05/08/25 01/27/22 History melatonin 5 mg tablet 5 mg PO BEDTIME 04/04/21 05/08/25 01/27/22 History ascorbic acid (vitamin C) 100 mg 100 mg PO QAM 01/28/22 05/08/25 06/25/23 05:00 History tablet quetiapine 300 mg tablet 600 mg PO BEDTIME 08/05/23 05/08/25 Unknown History venlafaxine 150 mg 150 mg PO QAM 08/05/23 05/08/25 Unknown History capsule,extended release 24 hr venlafaxine 75 mg capsule,extended 75 mg PO QAM 08/05/23 05/08/25 Unknown History release 24 hr meloxicam 15 mg tablet 15 mg PO QAM 12/13/23 05/08/25 Unknown History epinephrine 0.3 mg/0.3 mL 0.3 mg IM ONCE PRN anaphylaxis 03/27/24 05/08/25 Unknown History injection, auto-injector fluticasone propionate 50 1 spray intranasal DAILY PRN 03/27/24 05/08/25 Unknown History mcg/actuation nasal Allergy Symptoms spray,suspension cholecalciferol (vitamin D3) 125 125 mcg PO QAM 10/18/24 05/08/25 Unknown History mcg (5,000 unit) capsule loratadine 10 mg tablet (Allergy 10 mg PO QAM 11/14/24 05/08/25 Unknown History Relief (loratadine)) pantoprazole 40 mg tablet,delayed 40 mg PO QAM 11/14/24 06/06/25 06/06/25 05:00 History release polyethylene glycol 3350 17 gram 17 g PO QAM PRN Constipation 11/14/24 05/08/25 Unknown History oral powder packet (Miralax) valacyclovir 1 gram tablet 1,000 mg PO QAM 11/14/24 05/08/25 Unknown History calcium carbonate (Calcium 600) 600 mg PO DAILY 02/21/25 05/08/25 Unknown History Exam Airway Mallampati Class: II Heart: rrr Lungs: cta Assessment and Plan Assessment Anesthesia Assessment: Anesthesia Plan Discussed and Chart Reviewed Final Anesthetic Review NPO: Yes ASA Class: III Final Preanesthetic Review: No Changes in Pt Med Stat, Meds/Allgs Chart Reviewed, Consent Obtained/Reviewed and Anes Risks/Benef Reviewed Patient Risk: Intermediate Procedure Risk: Intermediate Anesthetic Plan Anesthetic Plan: GA and Agree w/ Assess. and Plan Disposition: Standard PACU
[2025-05-08 14:58] LABS: MRSA Nasal PCR NEGATIVE (Negative); SA Nasal PCR NEGATIVE (Negative)
[2025-06-06] VITALS (16 sets, daily range): BP systolic 105–132; BP diastolic 55–98; PULSE 66–95; RESP 13–18; TEMP 36.1–36.8; O2SAT 92–100
--- NOTE | ~2025-06-06 | XR_ITS ---
EXAMINATION: XR PELVIS CLINICAL INFORMATION: post op COMPARISON: December 12, 2024 TECHNIQUE: AP view of the pelvis. FINDINGS: New metallic prosthesis placed within the osseous acetabulum and proximal femur with normal alignment. The left arthroplasty prosthesis remains unchanged. XR/XR pelvis 1-2V IMPRESSION: New total right hip arthroplasty prosthesis. Satisfactory. Electronically signed by: Patrice lFores MD 06/06/2025 01:07 PM EDT
[2025-06-06] MEDS: oxyCODONE HCl ER 10 MG TAB.ER.12H PO ×3 (06:10→20:44)
[2025-06-06] MEDS: Lactated Ringers 1,000 ML 100 ML IVCONT ×3 (06:42→20:50)
--- NOTE | 2025-06-06 07:34 | MHC.SHP ---
Pre-Procedural Eval Section A - 24 Hr Update-Section A only Date of Service: 06/06/25 The patient is an INPATIENT: No Changes since office visit: No Cold of Flu in the past 2 weeks, No New Medical Problems, No Changes in Medication and No Patient answered all questions The patient has been examined within 24 hours of the surgical procedure. The History & Physical has been completed within 30 days and I have reviewed it.: Yes Section B - Complete if H&P > 30 days Chief Complaint: Unilateral primary osteoarthritis, right hip Allergies: Allergies Allergy/AdvReac Type Severity Reaction Status Date / Time amoxicillin (Augmentin) Allergy Intermediate rash Verified 05/31/25 09:39 cat dander Allergy Intermediate Nasal Verified 05/31/25 09:39 congestion clavulanic acid (Augmentin) Allergy Intermediate rash Verified 05/31/25 09:39 trazodone (TRAZODONE) Allergy Intermediate Shortness Verified 05/31/25 09:39 of Breath Plan I have reviewed the history and physical and performed a pertinent physical examination on my patient. No changes have occurred unless specified. Time Spent With Patient Time: Total time managing care of this patient today ____ minutes.
--- NOTE | 2025-06-06 09:21 | PM.OP ---
Brief Operative Note Date of Service: 06/06/25 Pre-op diagnosis: RIght hip OA Post-op diagnosis: same Procedure: Right NAYA Implants: bular screws; Accolade2 #5 132 with +0/36 ceramic Surgeon: Sinan Gibbs MD Anesthesia: GETA and local Was an Physician Coding Specialist used for this Procedure?: Yes Physician Coding Specialist: Tosha Tagn Estimated blood loss (mL): 250 IV fluids (mL): 1,000 Pathology: other Condition: stable Disposition: PACU
--- NOTE | 2025-06-06 09:32 | W.PM.OPN ---
Operative Note Operative Note Date of Service: 06/06/25 Narrative: Date of Service: 06/06/25 Pre-op diagnosis: RIght hip OA Post-op diagnosis: same Procedure: Right NAYA Implants: bular screws; Accolade2 #5 132 with +0/36 ceramic Surgeon: Sinan Gibbs MD Anesthesia: GETA and local Was an Child Care Centre Manager used for this Procedure?: Yes Child Care Centre Manager: Tosha Tang Estimated blood loss (mL): 250 IV fluids (mL): 1,000 Pathology: other Condition: stable Disposition: PACU Procedure in detail: Patient was brought into the operating room and placed in the right lateral decubitus position. All bony prominences were well padded and the limb was prepped and draped in standard sterile fashion. A time-out was called to identify proper site procedure proper surgeon IV antibiotics and 1 g of tranexamic acid were administered. I began by making a curvilinear incision over the posterolateral aspect of the greater trochanter. Dissection was taken down to the tensor fascia which was incised in line with the incision and a Charnley retractor was placed. Cautery was used to maintain hemostasis. The hip was internally rotated and the external rotators were identified. The vessels were cauterized and a full-thickness capsular/external rotator layer was developed starting just proximal to the piriformis. This layer was tagged and a dull Hohmann retractor was placed underneath the neck in the hip was dislocated. A neck cut was made 1 cm proximal to the lesser trochanter and the head and neck were removed and measured 46 mm on the back table. The head was deformed and eburnated. I then removed the labrum and cauterized the fovea. She was already down to the inner table and the cup was eroded superiorly. I started with a 44 reamer sequentially reamed up to a size 56 and impacted a 56mm cup at 45 degrees of inclination and 25 degrees of version. 2 acetabular screws were placed into the superior safe zone using standard AO technique. I then placed a 20 deg posterior lipped liner and turned my attention to the femur. I identified the piriformis insertion and used this as a starting point for my conrad cutter. The medius tendon was protected with a Hibs retractor. A Charnley awl was inserted in the canal and a curved curette used to remove the lateral bone. I irrigated copiously. I then sequentially broached in the patient's natural version to a size 5 and placed my trial implants. I used a #5/132/+2.5 based on my pre-operative template and the contralateral hip. I removed all instrumentation and copiously irrigated. I placed my final femoral implant and again took the hip through range of motion and was satisfied with the stability and length usign a +0. The final +0 implant was impacted in place and the hip reduced. I then irrigated copiously and placed 1 g of local tranexamic acid. I performed a capsular closure with 2.0 fiberwire, Jessica's fascia with 0 Vicryl, subcuticular with 2-0 Vicryl and the skin with lino. 14 ml Zynrelef was injected prior to each closure level. Patient was placed into a sterile dressing. Patient was extubated brought to the recovery room in stable condition. There were no known complications.
--- NOTE | 2025-06-06 11:23 | PHA.MEDREC ---
Addendum entered by Aura Jessica RPh 06/06/25 11:50: Reviewed by [facility] Original Note: Pharmacy Consult ? Medication Reconciliation Pharmacy has completed the medication reconciliation. Spoke with pt and she confirmed her medications.
[2025-06-06] MEDS: oxyCODONE HCl Immed Release 5 MG TABLET PO ×2 (11:54→19:02)
[2025-06-06] MEDS: Venlafaxine HCl ER 150 MG CAP.ER.24H PO (11:55)
[2025-06-06] MEDS: Venlafaxine HCl ER 75 MG CAP.ER.24H PO (11:55)
--- NOTE | 2025-06-06 16:12 | P.CONHOSP_ITS ---
History of Present Illness Data of Consult Service Date: 06/06/25 Primary Care Provider: Brianda Grant MD HPI Reason for consult: Medical Management 64-year-old female presents elective right hip replacement surgery. She has no acute medical issues at this point. No acute issue perioperative Review of Systems Review of Systems: Denies chest pain Denies shortness of breath Denies nausea vomiting diarrhea Denies fever chills PMFSH Medical History History of blood transfusion Environmental and seasonal allergies History of revision of total replacement of right knee joint Back pain Depression Bronchitis Asthma Right femoral fracture Diverticulosis Mild major depression Neck pain BMI 34.0-34.9,adult Leukopenia Sleep apnea Liver cyst Obesity (BMI 30-39.9) History of small bowel obstruction Lumbar degenerative disc disease Hematuria Migraines IBS (irritable bowel syndrome) Anemia Arthritis Hypothyroid GERD (gastroesophageal reflux disease) Family History Father FH: prostate cancer Mother Breast cancer Bladder cancer Surgical History Hx of foot surgery (04/2024) History of removal of retained hardware (03/07/25) History of left hip replacement (12/2024) Hx of elbow surgery History of surgical removal of skin lesion History of ankle surgery History of surgery History of hand surgery Hx of foot surgery History of esophagogastroduodenoscopy (EGD) History of surgery H/O hernia repair History of endometrial ablation H/O tubal ligation History of delivery History of bladder surgery Hx of colonoscopy (~02/11/23) History of back surgery H/O: hysterectomy History of bilateral knee replacement Social History Household Members: None Housing: Apartment Are you a primary regular senior care provider to a significant other at home: No 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 have visiting nurse or other home services: No Alcohol intake: never Patient Tobacco Use Status: Former Tobacco user Tobacco use type: Cigarette Years Smoked: 24 Smoked in Last 30 Days: No e-Cigarette/Vaping Use: Never Used Second Hand Smoke Exposure: No Use of substances other than those prescribed or required for medical reasons: Yes Substance Use Type: Marijuana Substance Use Type Other:: edibles Substance Use Frequency: Daily Have you been hit, kicked, punched, or otherwise hurt by someone within the past year? If so, by whom?: No Are you DNR?: No Advance Directives: No Advance Directives Information Provided: Yes Advance Directives on File: No Poor oral hygiene: Yes (full dentures) service: No Current occupational status: unemployed and disabled Cognitive needs: Yes Hearing needs: No Vision needs: Yes Meds Allergies Allergy/AdvReac Type Severity Reaction Status Date / Time amoxicillin (Augmentin) Allergy Intermediate rash Verified 05/31/25 09:39 cat dander Allergy Intermediate Nasal Verified 05/31/25 09:39 congestion clavulanic acid (Augmentin) Allergy Intermediate rash Verified 05/31/25 09:39 trazodone (TRAZODONE) Allergy Intermediate Shortness Verified 05/31/25 09:39 of Breath Active Medications: Current Medications Acetaminophen (Acetaminophen 325 Mg Tablet) 650 mg PO Q6H PRN PRN Reason: Pain, Mild 1-3,fever,headache Albuterol Sulfate (Albuterol Sulfate 90 Mcg 8 Gm Inhaler) 2 puff INHALE Q6H PRN PRN Reason: shortness of breath or wheezing Ascorbic Acid (Ascorbic Acid 250 Mg Tablet) 250 mg PO DAILY [facility] [place] Last Admin: 06/06/25 11:54 Dose: 250 mg Calcium Carbonate (Calcium Carbonate 750 Mg Tab.Chew) 750 mg PO DAILY [facility] [place] Last Admin: 06/06/25 11:57 Dose: Not Given Clonazepam (Clonazepam 0.5 Mg Tablet) 0.5 mg PO BID PRN PRN Reason: Anxiety Docusate Sodium (Docusate Sodium 100 Mg Capsule) 100 mg PO BID [facility] [place] Last Admin: 06/06/25 11:54 Dose: 100 mg Enoxaparin Sodium (Enoxaparin Sodium 40 Mg/0.4 Ml Syringe) 40 mg SUBCUT Q24H [facility] [place] Epinephrine (Epinephrine 1 Mg/Ml Vial) 0.3 mg IM ONCE PRN PRN Reason: anaphylaxis Gabapentin (Gabapentin 400 Mg Capsule) 800 mg PO TID [facility] [place] Last Admin: 06/06/25 14:14 Dose: 800 mg Hydrocortisone (Hydrocortisone 2.5 % Rectal Cr 30 Gm Tube) 1 appl MA BEDTIME PRN PRN Reason: Hemorrhoids Hydromorphone HCl (Hydromorphone Hcl 0.5 Mg/0.5 Ml Syringe) 0.25 mg IVPUSH Q4H PRN; Protocol PRN Reason: Pain, Severe (Pain Scale 7-10) Last Admin: 06/06/25 15:45 Dose: 0.25 mg Lactated Ringer's (Lr) 1,000 mls @ 100 mls/hr IVCONT .Q10H [facility] [place] Last Admin: 06/06/25 11:12 Dose: 100 mls/hr Levothyroxine Sodium (Levothyroxine Sodium 150 Mcg Tablet) 150 mcg PO DAILY@0600 [facility] [place] Last Admin: 06/06/25 11:47 Dose: Not Given Loratadine (Loratadine 10 Mg Tablet) 10 mg PO DAILY [facility] [place] Last Admin: 06/06/25 11:54 Dose: 10 mg Magnesium Hydroxide (Milk Of Magnesia 30 Ml Oral.Susp) 30 ml PO DAILY PRN PRN Reason: Constipation Melatonin (Melatonin 3 Mg Tablet) 6 mg PO BEDTIME [facility] [place] Naloxone HCl (Naloxone Hcl 0.4 Mg/Ml Vial) 0.04 mg IVPUSH Q5M PRN PRN Reason: Excessive sedation or RR < 8 Naloxone HCl (Naloxone Hcl 0.4 Mg/Ml Vial) 0.04 mg IVPUSH Q5M PRN PRN Reason: Excessive sedation or RR < 8 Omeprazole (Omeprazole 20 Mg Capsule.Dr) 20 mg PO DAILY@0630 [facility] [place] Ondansetron HCl (Ondansetron Hcl 4 Mg/2 Ml Vial) 4 mg IVPUSH Q8H PRN PRN Reason: Nausea and Vomiting Oxycodone HCl (Oxycodone Hcl Immed Release 5 Mg Tablet) 5 mg PO Q4H PRN PRN Reason: Pain, Moderate(Pain Scale 4-6) Last Admin: 06/06/25 11:54 Dose: 5 mg Oxycodone HCl (Oxycodone Hcl Er 10 Mg Tab.Er.12h) 10 mg PO BID [facility] [place] Last Admin: 06/06/25 11:54 Dose: 10 mg Polyethylene Glycol (Polyethylene Glycol 3350 17 Gm Powd.Pack) 17 gm PO DAILY PRN PRN Reason: Constipation Quetiapine Fumarate (Quetiapine Fumarate 300 Mg Tablet) 600 mg PO BEDTIME [facility] [place] Sodium Chloride (0.9 % Sodium Chloride Flush 3 Ml Syringe) 3 ml IVFLUSH QSHIFT [facility] [place] Last Admin: 06/06/25 15:24 Dose: Not Given Valacyclovir HCl (Valacyclovir Hcl 1,000 Mg Tablet) 1,000 mg PO DAILY [facility] [place] Last Admin: 06/06/25 11:54 Dose: 1,000 mg Venlafaxine HCl (Venlafaxine Hcl Er 75 Mg Cap.Er.24h) 75 mg PO DAILY [facility] [place] Last Admin: 06/06/25 11:55 Dose: 75 mg Venlafaxine HCl (Venlafaxine Hcl Er 150 Mg Cap.Er.24h) 150 mg PO DAILY [facility] [place] Last Admin: 06/06/25 11:55 Dose: 150 mg Home Medications ?Medication ?Instructions ?Recorded ?Confirmed ?Last Taken ?Type multivitamin 1 tab PO DAILY 10/01/2005/1006/05/25 History clonazepam 0.5 mg tablet 0.5 mg PO BID PRN Anxiety 06/06/25 01/27/22 History melatonin 5 mg tablet 5 mg PO BEDTIME 04/04/2106/05/25 History ascorbic acid (vitamin C) 100 mg 100 mg PO DAILY 01/2806/06/25 06/05/25 History tablet quetiapine 300 mg tablet 600 mg PO BEDTIME 08/05/23 1 06/05/25 History venlafaxine 150 mg 150 mg PO DAILY 08/05/2306/05/25 History capsule,extended release 24 hr venlafaxine 75 mg capsule,extended 75 mg PO DAILY 07/1006/06/25 06/05/25 History release 24 hr meloxicam 15 mg tablet 15 mg PO DAILY 12/13/2305/1006/05/25 History epinephrine 0.3 mg/0.3 mL 0.3 mg IM ONCE PRN anaphylax is 03/27/24 06/06/25 Unknown History injection, auto-injector fluticasone propionate 50 1 spray intranasal DAILY PRN 03/27/24 06/06/25 Unknown History mcg/actuation nasal Allergy Symptoms spray,suspension cholecalciferol (vitamin D3) 125 125 mcg PO DAILY 10/0706/06/25 06/05/25 History mcg (5,000 unit) capsule loratadine 10 mg tablet (Allergy 10 mg PO DAILY 06/06/25 06/05/25 History Relief (loratadine)) pantoprazole 40 mg tablet,delayed 40 mg PO DAILY@0630 11/14/24 06/06/25 06/06/25 History release polyethylene glycol 3350 17 gram 17 g PO DAILY PRN Con stipation 11/14/24 06/06/25 Unknown History oral powder packet (Miralax) valacyclovir 1 gram tablet 1,000 mg PO DAILY 11/14/24 06/06/25 06/05/25 History calcium carbonate (Calcium 600) 600 mg PO DAILY 06/06/25 06/05/25 History levothyroxine 150 mcg tablet 150 mcg PO DAILY@0600 06/06/25 06/06/25 History Physical Exam Vital Signs and Narrative: Vital Signs: Last Vital Signs Temp 97.2 F 06/06/25 15:21 Pulse 84 06/06/25 15:21 Resp 18 06/06/25 15:21 BP 114/98 H 06/06/25 15:21 Pulse Ox 99 06/06/25 15:21 O2 Del Method Room Air 06/06/25 15:21 O2 Flow Rate 2 06/06/25 10:13 BMI result Body Mass Index 37.0 Const: Other: Awake alert no acute issues Resp: Other: Clear to auscultation bilaterally no rales rhonchi or wheezes Cardio: Other: No S4; positive S1-S2; no S3 murmurs rubs or gallops GI: Other: Soft nontender nondistended normoactive bowel sounds Extrem: Other: No edema bilaterally Results Imaging Radiologist's Impressions: Impressions Pelvis X-Ray 06/06/25 12:55 IMPRESSION: New total right hip arthroplasty prosthesis. Satisfactory. Electronically signed by: Patrice Flores MD 06/06/2025 01:07 PM EDT RP Assessment and Plan (1) Osteoarthritis of right hip: Qualifiers: Osteoarthritis type: primary Qualified Code(s): M16.11 - Unilateral primary osteoarthritis, right hip Status: Acute (2) Status post total replacement of left hip: Status: Acute (3) Hypothyroid: Qualifiers: Hypothyroidism type: unspecified Qualified Code(s): E03.9 - Hypothyroidism, unspecified Status: Acute (4) Anemia: Qualifiers: Anemia type: unspecified type Qualified Code(s): D64.9 - Anemia, unspecified Status: Acute (5) Moderate recurrent major depression: Status: Acute Plan 64-year-old female presents for routine right total hip replacement. No acute issues pulse ox 1. Status post right total hip replacement -as per Orthopedics 2. Hypothyroidism -stable and well compensated -continue outpatient therapies 3. Anemia -at baseline -follow CBC 4. Major depression -stable and well compensated -continue outpatient therapies We will follow in a.m.
[2025-06-06] MEDS: 0.9 % Sodium Chloride Flush 3 ML SYRINGE IVFLUSH (20:51)
[2025-06-07] VITALS (8 sets, daily range): BP systolic 107–128; BP diastolic 58–64; PULSE 86–99; RESP 16–18; TEMP 36.1–37.3; O2SAT 93–98
[2025-06-07] MEDS: Lactated Ringers 1,000 ML 100 ML IVCONT (06:11)
[2025-06-07 06:48] LABS: MANUAL DIFF FLAG NO
[2025-06-07 06:54] LABS: Hematocrit 28.4 % (37.0-47.0); Hemoglobin 9.2 g/dl (12.0-16.0); Imm Gran Abs Auto 0.02 X10*3/uL (0.00-0.03); Imm Gran Pct Auto 0.3 % (0.0-0.4); Lymphocytes Absolute Auto 1.2 X10*3/uL (1.2-4.9); Mean Corpuscular HGB Conc 32.4 g/dl (31.0-35.0); Mean Corpuscular Hemoglobin 30.5 pg (27.0-33.0); Mean Corpuscular Volume 94.0 fL (80.0-98.0); NRBC Abs Auto 0.000 X10*3/uL (0.0-0.012); NRBC Pct Auto 0.0 /100WBC (0.0-0.2); Platelet Count 178 X10*3/uL (160-400); Red Blood Count 3.02 X10*6/uL (4.20-5.50); White Blood Count 6.4 X10*3/uL (4.8-10.8)
[2025-06-07 07:07] LABS: Anion Gap 13 (12-20); Blood Urea Nitrogen 11 mg/dL (9-16); Calcium 8.3 mg/dL (8.4-10.2); Carbon Dioxide 25 mmol/L (22-29); Chloride 103 mmol/L (96-108); Creatinine Clr Calc Pharmacy 117.3; Estimated Glomerular Filt Rate > 60; Potassium 3.9 mmol/L (3.3-5.1); Sodium 137 mmol/L (135-145)
[2025-06-07] MEDS: Venlafaxine HCl ER 150 MG CAP.ER.24H PO (08:16)
[2025-06-07] MEDS: Venlafaxine HCl ER 75 MG CAP.ER.24H PO (08:16)
[2025-06-07] MEDS: oxyCODONE HCl ER 10 MG TAB.ER.12H PO (08:17)
--- NOTE | 2025-06-07 08:22 | HO.POSTANES ---
Post Anesthesia Evaluation Post Anesthesia Evaluation Date of Service: 06/07/25 Vital Signs: Vital Signs Temp Pulse Resp BP Pulse Ox O2 Del Method 06/07/25 06:58 97.9 F 91 16 107/58 L 98 Room Air 06/07/25 03:37 98.6 F 99 18 115/58 L 93 Room Air 06/06/25 23:42 98.1 F 95 18 119/60 100 Nasal Cannula Anesthesia: General Endotracheal-GETA Mental Status: Awake Pain Control: Satisfactory Nausea/Vomiting: None Hydration: Adequate Anesthesia-Related Issues: No Anes. Related Issues
--- NOTE | 2025-06-07 08:51 | PM.PNORT ---
Subjective Subjective Date of Service: 06/07/25 Interval history: POD1 s/p RTHA Patient is resting in the recliner comfortably No overnight events Pain is managed No additional complaints Physical Exam Vital Signs: Vital Signs: Last Vital Signs Temp 97.9 F 06/07/25 06:58 Pulse 91 06/07/25 06:58 Resp 16 06/07/25 06:58 BP 107/58 L 06/07/25 06:58 Pulse Ox 98 06/07/25 06:58 O2 Del Method Room Air 06/07/25 06:58 O2 Flow Rate 2 06/06/25 10:13 BMI result Body Mass Index 37.0 Const: General: cooperative, healthy appearing and no acute distress Resp: Effort & Inspection: normal respiratory effort and able to speak in complete sentences Extrem: Other: rt hip dressing is c/d/i. Able to dorsi/plantar flex. Calf is supple and nontender. Sensation intact. Pedal pulse intact. Psych: Appearance: grossly normal Mental Status: mental status grossly normal Attitude: cooperative Procedures Date of Service Date of Service: 06/07/25 Progress Note: A&P Assessment and plan (1) S/P total right hip arthroplasty: Status: Acute Plan Continue pain mgmnt Begin Lovenox for dvt ppx begin PT/OT for RTHA - WBAT, posterior precautions Dispo planning-PT, pain mgmnt, H&H 9.2/38.4, last admission for total joint arthroplasty patient received 3 units of pRBC's, ordering 1 unit of pRBC's prior to discharge. Time Spent With Patient Time: Total time managing care of this patient today ____ minutes. Quality Stroke Does the patient have a stroke diagnosis?: No VTE Prior VTE?: No VTE Risk Level:: Medical - moderate - high VTE Device Contraindication: N/A - Device Ordered VTE Drug Contraindication: N/A - Med Ordered
--- NOTE | 2025-06-07 09:37 | W.MHC.F2F ---
Service Date Service Date: 06/07/25 Encounter Date of encounter: 06/07/25 Reasons for Services Signs and symptoms assessed: s/p RTHA Pt. is considered homebound due to recent surgery. Unable to drive, poor balance, poor gait mechanics. Reason for physical therapy: home safety and mobility, therapeutic exercises, restore joint function, gait/transfer training and ADL training Reason for occupational therapy: home safety and mobility, therapeutic exercises, restore joint function, gait/transfer training and ADL training Homebound: Leaving the home is medically contraindicated at this time without the asist of a device and/or another person due th the listed conditions above and below. Reason homebound: unsteady gait / fall risk, leg weakness, pain with ambulation, pain with transfers, poor balance / fall risk and unable to drive Certification: Based on the above findings, I certify that this patient is confined to the home and needs intermittent care home care, physical therapy and/or speech therapy, or continues to need occupational therapy. The patient is under my care, and I have initiated the establishment of the plan of care. The patient will be followed by a physician who will periodically review the plan of care. Time Spent With Patient Time: Total time managing care of this patient today ____ minutes.
--- NOTE | 2025-06-07 09:37 | PM.DS ---
DS: Providers Provider Date of Service: 06/07/25 Date of discharge: 06/07/25 Primary care physician: Brianda Grant MD Consults: 06/06/25 10:36 Consult to Case Management Routine Comment: home with services Consult to Hospitalist Routine Comment: Routine medical manager risk management Provider: [facility] Hospitalists Reason For Exam: routine medical management DS: Diagnosis Discharge Diagnosis (1) S/P total right hip arthroplasty: Status: Acute DS: Summary Hospital Course Hospital Course: The patient underwent a successful right total hip arthroplasty, they were transferred to PACU and then to the floor to recover. During their stay, their vitals were stable, afebrile at 97.9. Labs were unremarkable, H/H 9.2/28.4, during the patients last admission for total joint arthroplasty left hip she received 3 units post op. Additionally, the patient was anemic at 11.9/36.5. Therefore, the decision was to transfuse 1 unit POD1. POD 1 they were started on Lovenox for DVT ppx, they also received Physical Therapy and Occupational Therapy services. Prior to discharge, their dressing was clean dry and intact and the plan was to be discharged home with VNA services. Time Attestation Discharge Coordination Time (in mins): 30 Quality: Safe Use of Opioids Does Pt have an Active Cancer Diagnosis on the Problem List?: No Quality: Stroke Does the patient have a stroke diagnosis?: No Physical Exam Vital Signs: Vital Signs: Last Vital Signs Temp 97.9 F 06/07/25 06:58 Pulse 91 06/07/25 06:58 Resp 16 06/07/25 06:58 BP 107/58 L 06/07/25 06:58 Pulse Ox 98 06/07/25 06:58 O2 Del Method Room Air 06/07/25 06:58 O2 Flow Rate 2 06/06/25 10:13 BMI result Body Mass Index 37.0 Const: General: cooperative, healthy appearing and no acute distress Resp: Effort & Inspection: normal respiratory effort and able to speak in complete sentences Extrem: Other: rt hip dressing is c/d/i. Able to dorsi/plantar flex. Calf is supple and nontender. Sensation intact. Pedal pulse intact. Psych: Appearance: grossly normal Mental Status: mental status grossly normal Attitude: cooperative DS: Data Data Completed and Pending Completed studies during hospitalization [Text1]: Procedures Insertion of Internal Fixation Device into Right Lower Femur, Open Approach (01/28/22) Removal of Liner from Right Knee Joint, Open Approach (01/28/22) Replacement of Left Hip Joint with Ceramic Synthetic Substitute, Uncemented, Open Approach (12/14/24) Reposition Left Fibula with Internal Fixation Device, Percutaneous Approach (01/28/22) Reposition Left Tibia with Internal Fixation Device, Percutaneous Approach (01/28/22) Reposition Left Tibia, External Approach (01/28/22) Supplement Right Knee Joint with Liner, Open Approach (01/28/22) Transfusion of Nonautologous Red Blood Cells into Peripheral Vein, Percutaneous Approach (12/14/24) Pending studies at discharge: Pending at discharge 06/06/25 09:10 Surgical [PTH] Routine Labs on day of discharge: Laboratory Results - last 24 hr 06/07/25 06/07/25 06:19 09:13 WBC 6.4 RBC 3.02 L D Hgb 9.2 L D Hct 28.4 L D MCV 94.0 MCH 30.5 MCHC 32.4 RDW 14.6 Plt Count 178 MPV 9.6 Immature Gran % (Auto) 0.3 Neut % (Auto) 71.4 Lymph % (Auto) 19.2 L Canadian % (Auto) 8.6 Eos % (Auto) 0.2 Baso % (Auto) 0.3 Lymph # (Auto) 1.2 Canadian # (Auto) 0.6 Eos # (Auto) 0.0 Baso # (Auto) 0.0 Abs Immat Gran (auto) 0.02 Absolute Neuts (auto) 4.6 Absolute Nucleated RBC 0.000 Nucleated RBC % (auto) 0.0 Sodium 137 Potassium 3.9 Chloride 103 Carbon Dioxide 25 Anion Gap 13 BUN 11 Creatinine 0.61 Estim Creat Clear Calc 117.3 Estimated GFR > 60 Fasting Glucose 131 H Calcium 8.3 L D Crossmatch See Detail Discharge Plan Discharge Patient Disposition: Home, Self-Care Referrals: Tosha Tang PA-C [Physician Form Raiser, Orthopedics] - 06/21/25 1:00 pm Discharge Medications: New acetaminophen 325 mg Tablet 650 mg PO Q6H PRN (Reason: Pain, Mild 1-3,Fever,Headache) 30 Days Qty: 240 0RF docusate sodium 100 mg Capsule 100 mg PO BID 30 Days Qty: 60 0RF oxycodone 5 mg Tablet 5 mg PO Q4H PRN (Reason: Pain, Moderate(Pain Scale 4-6)) 7 Days Qty: 42 0RF Rx Instructions: Partial Fill upon patient request. enoxaparin 40 mg/0.4 mL Syringe 40 mg subcut Q24H 42 Days Qty: 16.8 0RF Continued (DME) Shoe lift See Rx Instructions .Route .MEDSUPPLY Qty: 1 0RF Rx Instructions: As directed (DME) hand held showerhead See Rx Instructions .Route .MEDSUPPLY Qty: 1 0RF Rx Instructions: As directed (DME) Ultra-Light Rollator Misc See Rx Instructions .Route Qty: 1 0RF Rx Instructions: As directed (DME) Grab bar Misc See Rx Instructions .Route Qty: 1 0RF Rx Instructions: As directed (DME) toilet seat elevator See Rx Instructions .Route .MEDSUPPLY Qty: 1 0RF Rx Instructions: As directed (DME) walker Misc See Rx Instructions .MEDSUPPLY Qty: 1 0RF Rx Instructions: Folding Front wheeled walker duration 99 days (DME) 4 wheel walker with seat See Rx Instructions .Route .MEDSUPPLY Qty: 1 0RF Rx Instructions: As directed albuterol sulfate [Ventolin HFA] 90 mcg/actuation HFA aerosol inhaler 2 puff inhalation Q6H PRN (Reason: shortness of breath or wheezing) 30 Days Qty: 6.7 2RF hydrocortisone [Proctosol HC] 2.5 % cream with perineal applicator 1 appl GA BEDTIME PRN (Reason: hemorrhoids) Qty: 30 3RF gabapentin 800 mg tablet 800 mg PO TID 90 Days Qty: 270 1RF tramadol 50 mg tablet 100 mg PO Q6H PRN (Reason: pain) 30 Days Qty: 240 0RF ascorbic acid (vitamin C) 100 mg Tablet 100 mg PO DAILY polyethylene glycol 3350 [Miralax] 17 gram powder in packet 17 g PO DAILY PRN (Reason: Constipation) valacyclovir 1 gram tablet 1,000 mg PO DAILY pantoprazole 40 mg tablet,delayed release (DR/EC) 40 mg PO DAILY@0630 loratadine [Allergy Relief (loratadine)] 10 mg tablet 10 mg PO DAILY calcium carbonate [Calcium 600] 600 mg calcium (1,500 mg) Tablet 600 mg PO DAILY levothyroxine 150 mcg tablet 150 mcg PO DAILY@0600 epinephrine 0.3 mg/0.3 mL auto-injector 0.3 mg IM ONCE PRN (Reason: anaphylaxis) fluticasone propionate 50 mcg/actuation spray,suspension 1 spray intranasal DAILY PRN (Reason: Allergy Symptoms) venlafaxine 150 mg capsule,extended release 24hr 150 mg PO DAILY venlafaxine 75 mg capsule,extended release 24hr 75 mg PO DAILY quetiapine 300 mg tablet 600 mg PO BEDTIME multivitamin Tablet 1 tab PO DAILY clonazepam 0.5 mg tablet 0.5 mg PO BID PRN (Reason: Anxiety) melatonin 5 mg tablet 5 mg PO BEDTIME cholecalciferol (vitamin D3) 125 mcg (5,000 unit) capsule 125 mcg PO DAILY Discontinued acetaminophen 500 mg tablet 1,000 mg PO Q6H PRN (Reason: pain) 30 Days Qty: 240 8RF docusate sodium [Colace] 100 mg capsule 200 mg PO BEDTIME 30 Days Qty: 60 5RF meloxicam 15 mg tablet 15 mg PO DAILY Discharge Orders: Discharge Order (Routine); Ordered 06/07/25 Ordered By: Tosha Tang Diet: Advance to usual diet Activity on Discharge: Use cane or walker Activity Restrictions/Additional Instructions: Physical Therapy for total hip arthroplasty: posterior precautions, gait training, ROM, strength Limit stair climbing No showering, no tub bath-keep dressing clean, dry and intact No driving x 6 weeks Continue Aspirin tabs once a day x 6 weeks Follow up with [facility] Orthopedics in 2 weeks -Bandage/Incision Site Care: -Ice 20mins at a time -Make sure you use a towel or cloth on your skin as a barrier -DO NOT remove the bandage -Keep Bandage clean, dry and intact -Do not get the bandage wet: -No tub bath, pools or hot tubs -If there are any concerns regarding the bandage please call orthopedics: [phone] -Hip Precautions: -Do not bend hip past 90 degrees -Do not cross at your knees or ankles -Do not turn your operative leg inward (avoid twisting the foot in) -Avoid low chairs and deep couches -Use supportive shoes with nonslip soles -Physical Therapy: -Patient is WBAT with the use of a walker -Gait training -Limit stair climbing -Hip range of motion -Strengthening: Quadriceps and hip muscles -Walking: Gait training and gradually increasing distance with walker -Ankle pumps and incentive spirometry to limit the risk of blood clot -Diet: -Resume regular diet as tolerated. -Drink plenty of fluids and eat a high-fiber foods to avoid constipation -This is a common side effect of pain medication) -Take stool softeners as prescribed -Blood Clot Prevention: -Take the prescribed blood thinner as directed for 6 weeks -Perform ankle pumps and walk frequently with the walker and assistance if needed -Report calf pain, swelling, or shortness of breath immediately Print Language: Nigerian
--- NOTE | 2025-06-07 10:36 | MHC.CM.PN ---
Addendum entered by Mayte Baires 06/07/25 14:40: CM MET WITH PT TO DISCUSS DCP PT AND OT HAVE RECOMMENDED ACUTE REHAB PT STATES SHE WOULD PREFER TO DC HOME AND IS AGREEABLE TO [facility] SHE UNDERSTANDS THEY WILL CONTACT HER TOMORROW TO START CARE Original Note: PT REPORTS SHE LIVES ALONE AND IS INDEPENDENT WITH CARE SHE HAS A WALKER FOR DME AND NO SERVICES HCP ON FILE AND VERIFIED PCP: KOTA DIAZ DCP: PT CLEARED TO DC HOME TODAY WITH NO SERVICES PT REPORTS SHE WILL CALL CTS FOR TRANSPORT BUT IS AWARE CM CAN ASSIST IF NEEDED
[2025-06-07] MEDS: 0.9 % Sodium Chloride Flush 3 ML SYRINGE IVFLUSH (15:45)
== END 2025-06-07 17:32 | disposition home health service (06) ==
LOC: HO.SSS 05:41 → HO.S3 10:05
PROVIDERS: Nurse Practitioner; Physician Assistant; PCP Internal Medicine; Visit Provider Orthopaedic Surgery
PROC: (CPT 27130; principal; 2025-06-06 07:30)
DX: M16.11 Unilateral primary osteoarthritis, right hip (principal); J45.909 Unspecified asthma, uncomplicated; K21.9 Gastro-esophageal reflux disease without esophagitis; G47.33 Obstructive sleep apnea (adult) (pediatric); F33.0 Major depressive disorder, recurrent, mild; M51.369 Other intervertebral disc degeneration, lumbar region without mention of lumbar back pain or lower extremity pain; E66.9 Obesity, unspecified; Z68.34 Body mass index [BMI] 34.0-34.9, adult; D64.9 Anemia, unspecified; E03.9 Hypothyroidism, unspecified; G43.909 Migraine, unspecified, not intractable, without status migrainosus; D72.819 Decreased white blood cell count, unspecified; Z79.51 Long term (current) use of inhaled steroids; Z79.899 Other long term (current) drug therapy; Z88.1 Allergy status to other antibiotic agents; Z88.5 Allergy status to narcotic agent; Z96.642 Presence of left artificial hip joint; Z87.81 Personal history of (healed) traumatic fracture; Z98.890 Other specified postprocedural states; Z87.891 Personal history of nicotine dependence; Z56.0 Unemployment, unspecified
CPT/HCPCS: 27130; 36415; 72170; 80048; 85025; 86850; 86900; 86901; 86923; 87640; 87641; 88304; 88311; 97161; 97165; C1713; C1776; J0131; J0668; J0690; J1100; J1171; J1596; J1630; J1650; J2003; J2151; J2250; J2371; J2405; J2704; J3010; J7120; P9016

== ENCOUNTER → 2025-06-06 05:41 | Outpatient (BNV) | payer OTHER, SELFPAY | PROVIDERS: PCP Internal Medicine; Visit Provider Hospitalist | DX: M16.11 Unilateral primary osteoarthritis, right hip (principal); Z96.642 Presence of left artificial hip joint; E03.9 Hypothyroidism, unspecified; D64.9 Anemia, unspecified; F33.1 Major depressive disorder, recurrent, moderate | CPT/HCPCS: 99222 ==

== ENCOUNTER → 2025-06-06 05:41 | Outpatient (BNV) | payer OTHER, SELFPAY | PROVIDERS: PCP Internal Medicine; Visit Provider Orthopaedic Surgery | DX: Z47.1 Aftercare following joint replacement surgery (principal); Z96.641 Presence of right artificial hip joint | CPT/HCPCS: 27130; 99024; G0180 ==

== ENCOUNTER → 2025-06-06 12:55 | Outpatient (BNV) | payer OTHER, SELFPAY | PROVIDERS: PCP Internal Medicine; Visit Provider Radiology Diagnostic Radiology | DX: Z47.1 Aftercare following joint replacement surgery (principal); Z96.641 Presence of right artificial hip joint | CPT/HCPCS: 72170 ==

== ENCOUNTER 2025-06-15 15:26 | Outpatient (AMB) | payer OTHER, SELFPAY ==
--- NOTE | 2025-06-15 15:40 | MHC.OFFVIS ---
Intake Visit Reasons: Bandage Change: R NAYA w/NE 06/06/25 Allergies amoxicillin (Augmentin) Allergy (Intermediate, Verified 06/21/25 13:05) rash cat dander Allergy (Intermediate, Verified 06/21/25 13:05) Nasal congestion clavulanic acid (Augmentin) Allergy (Intermediate, Verified 06/21/25 13:05) rash trazodone (TRAZODONE) Allergy (Intermediate, Verified 06/21/25 13:05) Shortness of Breath HPI HPI Bandage Change: R NAYA w/NE 06/06/25: Details: Patient is a 64-year-old female who presents for bandage change status right total hip arthroplasty with Dr. Gibbs, DOS 06/06/2025. The patient states that she noticed some dark blood in the Aquacel dressing, and the physical therapist stated that it had a green appearance, and told her that she should come in for bandage change and assessment. Patient denies any increase in pain, and states she is feeling quite well. COUNT INCLUDES THE [facility] Medical History History of blood transfusion Environmental and seasonal allergies History of revision of total replacement of right knee joint Back pain Depression Bronchitis Asthma Right femoral fracture Diverticulosis Mild major depression Neck pain BMI 34.0-34.9,adult Leukopenia Sleep apnea Liver cyst Obesity (BMI 30-39.9) History of small bowel obstruction Lumbar degenerative disc disease Hematuria Migraines IBS (irritable bowel syndrome) Anemia Arthritis Hypothyroid GERD (gastroesophageal reflux disease) Surgical History Hx of foot surgery (04/2024) History of removal of retained hardware (03/07/25) History of left hip replacement (12/2024) Hx of elbow surgery History of surgical removal of skin lesion History of ankle surgery History of surgery History of hand surgery Hx of foot surgery History of esophagogastroduodenoscopy (EGD) History of surgery H/O hernia repair History of endometrial ablation H/O tubal ligation History of delivery History of bladder surgery Hx of colonoscopy (~02/11/23) History of back surgery H/O: hysterectomy History of bilateral knee replacement Family History Father FH: prostate cancer Mother Breast cancer Bladder cancer Social History Household Members: None Housing: Apartment Are you a primary care team assistant to a significant other at home: No 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 have visiting nurse or other home services: Yes 75 years or older and lives alone: No Alcohol intake: never Patient Tobacco Use Status: Former Tobacco user Tobacco use type: Cigarette Years Smoked: 24 e-Cigarette/Vaping Use: Never Used Second Hand Smoke Exposure: No Substance Use Type: Marijuana service: No Current occupational status: unemployed and disabled Cognitive needs: Yes Hearing needs: No Vision needs: Yes Physical Exam Extrem Other: Dressing on right hip clean, dry, intact Once dressing is removed, incision site is clean, dry, intact, well healing, with no evidence of discharge or infection No evidence of surrounding erythema, ecchymosis No evidence of infection Patient is able to flex and extend the digits of the right foot without difficulty Compartments soft, nontender Distal sensation intact Capillary refill brisk Assessment & Plan Assessment & Plan (1) S/P total right hip arthroplasty: Code(s): Z96.641 - Presence of right artificial hip joint Category: Surgical Plan 1. Status post right total hip arthroplasty DOS 06/06/2025 Aquacel dressing changed in the office today Patient is educated that there are no signs or symptoms of ongoing infection, and she appears to be recovering well Patient understands this in his amenable to this plan Follow-up for previously scheduled postop appointment, sooner with any acute concerns Coding Level of Care Code Global (73332) Diagnoses S/P total right hip arthroplasty Z96.641
--- OUTSIDE RECORDS SUMMARY | 2025-06-15 16:34 | XMS_ITS | Clinical Summary ---
Author Organization [facility] Address [address] [place] [address] Phone Care Team Providers Care Cook Starch Name Role Phone Brianda Cotton MD Primary [...] file Medical Devices Not on file Insurance [facility] MEDICARE REPLACEMENT MEDICARE PART A & B [facility] MEDICARE REPLACEMENT MEDICARE PART A & B [facility] ONE CARE MEDICARE REPLACEMENT MEDICARE PART A & B [facility] ONE CARE MEDICARE REPLACEMENT MEDICARE PART A & B [facility] MEDICARE REPLACEMENT MEDICARE PART A & [facility] ONE CARE MEDICARE REPLACEMENT MEDICARE PART A & B [facility] MEDICARE REPLACEMENT MEDICARE REPLACEMENT MEDICARE REPLACEMENT CARE MEDICARE REPLACEMENT MEDICARE REPLACEMENT MEDICARE REPLACEMENT MEDICARE REPLACEMENT MEDICARE REPLACEMENT Care Teams Cook Starch Relationship Specialty Start Date End Date Brianda Cotton MD [address] [place] [address] PCP - General Internal Medicine 12/21/24 Pcp, Unknown 12/21/24 Additional Source Comments The information contained in this document represents components of the legal health record. It is not the complete legal health record.[facility]
--- OUTSIDE RECORDS SUMMARY | 2025-06-15 16:34 | XMS_ITS | Clinical Summary ---
Author Organization [facility] Address [address] [place] [address] Care Team Providers Care Technician Terminal And Repeater Name Role Phone Unavailable Primary Care Provider [...] patient's age to complete this topic Insurance [place], [place] [facility] ONE CARE < 65 [place] [id number]
== END 2025-06-15 15:45 | disposition home or self-care (01) ==
LOC: HO.HOS 15:26
PROVIDERS: PCP Internal Medicine
DX: Z96.641 Presence of right artificial hip joint (principal)
CPT/HCPCS: 99024

== ENCOUNTER → 2025-06-15 15:26 | Outpatient (BNVA) | payer OTHER, SELFPAY | PROVIDERS: PCP Internal Medicine | DX: Z48.01 Encounter for change or removal of surgical wound dressing (principal); Z96.641 Presence of right artificial hip joint | CPT/HCPCS: 99212 ==

== ENCOUNTER 2025-06-21 12:48 | Outpatient (AMB) | payer OTHER, SELFPAY ==
--- NOTE | 2025-06-21 12:57 | MHC.OFFVIS ---
Intake Visit Reasons: 1stPO: R TKA w/NE 06/06/25 Intake Note: Jr is a 64 year old female who presents today with a walker for a post op appointment status post right total hip arthroplasty done on 06/06/[address] Gibbs. Patient reports she is feeling great. Allergies amoxicillin (Augmentin) Allergy (Intermediate, Verified 06/21/25 13:05) rash cat dander Allergy (Intermediate, Verified 06/21/25 13:05) Nasal congestion clavulanic acid (Augmentin) Allergy (Intermediate, Verified 06/21/25 13:05) rash trazodone (TRAZODONE) Allergy (Intermediate, Verified 06/21/25 13:05) Shortness of Breath HPI HPI 1stPO: R TKA w/NE 06/06/25: Details: Ms. Parekh is a 64-year-old female who presents to the office today status post right total hip arthroplasty performed by Dr. Gibbs on 06/06/2025. Patient states that overall she has been doing very well with only some slight soreness. She is using a walker to assist with ambulation. She has been working with physical therapy at her home. [facility] Medical History History of blood transfusion Environmental and seasonal allergies History of revision of total replacement of right knee joint Back pain Depression Bronchitis Asthma Right femoral fracture Diverticulosis Mild major depression Neck pain BMI 34.0-34.9,adult Leukopenia Sleep apnea Liver cyst Obesity (BMI 30-39.9) History of small bowel obstruction Lumbar degenerative disc disease Hematuria Migraines IBS (irritable bowel syndrome) Anemia Arthritis Hypothyroid GERD (gastroesophageal reflux disease) Surgical History Hx of foot surgery (04/2024) History of removal of retained hardware (03/07/25) History of left hip replacement (12/2024) Hx of elbow surgery History of surgical removal of skin lesion History of ankle surgery History of surgery History of hand surgery Hx of foot surgery History of esophagogastroduodenoscopy (EGD) History of surgery H/O hernia repair History of endometrial ablation H/O tubal ligation History of delivery History of bladder surgery Hx of colonoscopy (~02/11/23) History of back surgery H/O: hysterectomy History of bilateral knee replacement Family History Father FH: prostate cancer Mother Breast cancer Bladder cancer Social History Household Members: None Housing: Apartment Are you a primary ambulatory care coordinator to a significant other at home: No 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 have visiting nurse or other home services: Yes 75 years or older and lives alone: No Alcohol intake: never Patient Tobacco Use Status: Former Tobacco user Tobacco use type: Cigarette Years Smoked: 24 e-Cigarette/Vaping Use: Never Used Second Hand Smoke Exposure: No Substance Use Type: Marijuana service: No Current occupational status: unemployed and disabled Cognitive needs: Yes Hearing needs: No Vision needs: Yes Review of Systems Const All systems reviewed & are unremarkable except as noted in HPI and below Physical Exam Const General: cooperative, healthy appearing and no acute distress Resp Effort & Inspection: normal respiratory effort and able to speak in complete sentences Extrem Other: Right hip incision site is clean dry and intact. [place] intact. No surrounding erythema or drainage. No signs of infection. Able to perform a straight leg raise. Good internal external rotation. NVI. Psych Appearance: grossly normal Mental Status: mental status grossly normal Attitude: cooperative Assessment & Plan Assessment & Plan (1) S/P total right hip arthroplasty: Code(s): Z96.641 - Presence of right artificial hip joint Category: Surgical Plan Ms. Parekh is a 64-year-old female who presents to the office today status post right total hip arthroplasty performed by Dr. Gibbs on 06/06/2025. Patient states that overall she has been doing very well with only some slight soreness. She is using a walker to assist with ambulation. She has been working with physical therapy at her home. On the office today, lino were removed and Steri-Strips were applied. She will continue working with physical therapy. I did place an order for physical therapy at the patient's preoperative appointment for outpatient therapy here at the hospital. Unfortunately, the patient states that there may be an issue with her insurance. I will have our office contact physical therapy and see if there is anything that we can do to help facilitate transitioning to outpatient therapy soon as possible. No driving for 6 weeks. Patient will follow up in [address] Gibbs, sooner if needed. Coding Level of Care Code Global (38825) Diagnoses S/P total right hip arthroplasty Z96.641
--- OUTSIDE RECORDS SUMMARY | 2025-06-21 15:55 | XMS_ITS | Clinical Summary ---
Author Organization [facility] Address [address] [place] [address] Phone Care Team Providers Care Air Conditioning Unit Tester Name Role Phone Brianda Cotton MD [...] file Medical Devices Not on file Insurance [facility] CARE MEDICARE REPLACEMENT MEDICARE PART A & B [facility] CARE MEDICARE REPLACEMENT MEDICARE PART A & B [facility] ONE CARE MEDICARE REPLACEMENT MEDICARE PART A & B [facility] ONE CARE MEDICARE REPLACEMENT MEDICARE PART A & B [facility] MEDICARE REPLACEMENT MEDICARE PART A & [facility] ONE CARE MEDICARE REPLACEMENT MEDICARE PART A & B [facility] CARE MEDICARE REPLACEMENT MEDICARE REPLACEMENT MEDICARE REPLACEMENT CARE MEDICARE REPLACEMENT MEDICARE REPLACEMENT MEDICARE REPLACEMENT MEDICARE REPLACEMENT MEDICARE REPLACEMENT Care Teams Air Conditioning Unit Tester Relationship Specialty Start Date End Date Brianda Cotton MD [address] [place] [address] PCP - General Internal Medicine 12/21/24 Pcp, Unknown 12/21/24 Additional Source Comments The information contained in this document represents components of the legal health record. It is not the complete legal health record.[facility]
--- OUTSIDE RECORDS SUMMARY | 2025-06-21 15:55 | XMS_ITS | Clinical Summary ---
Author Organization [facility] Address [address] [place] [address] Care Team Providers Care Husbandry Technician Name Role Phone Unavailable Primary Care Provider [...] patient's age to complete this topic Insurance [place], [place] [facility] ONE CARE < 65 [place] [id number]
--- OUTSIDE RECORDS SUMMARY | 2025-06-21 15:55 | XMS_ITS | Patient Health Record ---
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
== END 2025-06-21 13:27 | disposition home or self-care (01) ==
PROVIDERS: PCP Internal Medicine; Visit Provider Physician Assistant
DX: Z96.641 Presence of right artificial hip joint (principal)
CPT/HCPCS: 99024

== ENCOUNTER → 2025-06-21 12:48 | Outpatient (BNVA) | payer OTHER, SELFPAY | PROVIDERS: PCP Internal Medicine; Visit Provider Physician Assistant | DX: Z48.02 Encounter for removal of sutures (principal); Z96.641 Presence of right artificial hip joint | CPT/HCPCS: 99212 ==

== ENCOUNTER 2025-07-19 09:21 | Outpatient (REF) | payer OTHER, SELFPAY ==
--- NOTE | ~2025-07-19 | XR_ITS ---
EXAMINATION: XR PELVIS CLINICAL INFORMATION: M25.559 - Pain in unspecified hip COMPARISON: X-ray 06/06/2025 TECHNIQUE: 2 AP view of the pelvis. FINDINGS: Bilateral total hip arthroplasty. Stable position and alignment. Intact hardware. No suspicious perihardware lucencies. No evidence of acute fracture. No abnormal soft tissue calcification. XR/XR pelvis 1-2V IMPRESSION: Bilateral total hip arthroplasty are intact and stable in appearance. Electronically signed by: Jose David Higgins MD 07/20/2025 08:42 AM EST
== END 2025-07-19 09:22 | disposition home or self-care (01) ==
LOC: HO.HOSX 09:21
PROVIDERS: Visit Provider Orthopaedic Surgery
DX: M25.551 Pain in right hip (principal); Z96.641 Presence of right artificial hip joint
CPT/HCPCS: 72170; 99212

== ENCOUNTER 2025-07-19 10:52 | Outpatient (AMB) | payer OTHER, SELFPAY ==
--- NOTE | 2025-07-19 10:56 | A.OFFVIS_ITS ---
Intake Visit Reasons: 2ndPO: R NAYA w/NE 06/06/25 Intake Note: Rashawn is a 64 year old female who presents today for a post operative appointment about 5 weeks s/p Right NAYA 06/06/25. She is working with [facility]. Patient rpeorts that she is doing well with no concerns Allergies amoxicillin (Augmentin) Allergy (Intermediate, Verified 07/19/25 10:57) rash cat dander Allergy (Intermediate, Verified 07/19/25 10:57) Nasal congestion clavulanic acid (Augmentin) Allergy (Intermediate, Verified 07/19/25 10:57) rash trazodone (TRAZODONE) Allergy (Intermediate, Verified 07/19/25 10:57) Shortness of Breath HPI HPI 2ndPO: R NAYA w/NE 06/06/25: Details: Rashawn is a 64 year old female who presents today for a post operative appointment about 5 weeks s/p Right NAYA 06/06/25. She is working with [facility]. Patient rpeorts that she is doing well with no concerns HPI Comments Details: Interval History The patient is a 64-year-old female presenting for follow-up for post-operative rehabilitation after right total hip arthroplasty. She reports that the hip is feeling good and she is experiencing less pain while walking. The patient notes that the sciatic pain, which previously extended down her leg, is now localized to her back. She mentions that the knee has stopped cracking but still hurts, indicating a persistent issue with the knee. The patient confirms she is attending physical therapy and has not experienced any problems with the incision, which is healing well. She is currently on blood thinners prescribed post-surgery and is considering discontinuation after completing the prescribed course. Results [facility] Medical History History of blood transfusion Environmental and seasonal allergies History of revision of total replacement of right knee joint Back pain Depression Bronchitis Asthma Right femoral fracture Diverticulosis Mild major depression Neck pain BMI 34.0-34.9,adult Leukopenia Sleep apnea Liver cyst Obesity (BMI 30-39.9) History of small bowel obstruction Lumbar degenerative disc disease Hematuria Migraines IBS (irritable bowel syndrome) Anemia Arthritis Hypothyroid GERD (gastroesophageal reflux disease) Surgical History Hx of foot surgery (04/2024) History of removal of retained hardware (03/07/25) History of left hip replacement (12/2024) Hx of elbow surgery History of surgical removal of skin lesion History of ankle surgery History of surgery History of hand surgery Hx of foot surgery History of esophagogastroduodenoscopy (EGD) History of surgery H/O hernia repair History of endometrial ablation H/O tubal ligation History of delivery History of bladder surgery Hx of colonoscopy (~02/11/23) History of back surgery H/O: hysterectomy History of bilateral knee replacement Family History Father FH: prostate cancer Mother Breast cancer Bladder cancer Social History Household Members: None Housing: Apartment Are you a primary child care associate to a significant other at home: No 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 have visiting nurse or other home services: Yes 75 years or older and lives alone: No Alcohol intake: never Patient Tobacco Use Status: Former Tobacco user Tobacco use type: Cigarette Years Smoked: 24 e-Cigarette/Vaping Use: Never Used Second Hand Smoke Exposure: No Substance Use Type: Marijuana service: No Current occupational status: unemployed and disabled Cognitive needs: Yes Hearing needs: No Vision needs: Yes Physical Exam Exam Exam: Physical Exam - General Appearance: Patient appears well and is ambulating without pain. Still using walker. . - Musculoskeletal: Right hip incision healing well, no signs of infection or complications observed. No pain with hip ROM. Right knee valgus present at baseline Assessment & Plan Assessment & Plan (1) S/P total right hip arthroplasty: Code(s): Z96.641 - Presence of right artificial hip joint Category: Surgical Plan Plan 1. Right Hip Arthroplasty Post-Operative Follow-Up Continue with physical therapy and regular walking to aid in rehabilitation. Schedule a follow-up appointment in six weeks to monitor progress and reassess the hip and overall recovery. 2. Knee Pain Monitor knee pain and consider further evaluation if symptoms persist or worsen. 3. Sciatic Pain Continue monitoring the sciatic pain, which has improved but remains localized to the back. Discussion Notes The patient expressed satisfaction with the progress following her right hip arthroplasty, noting significant improvement in hip pain and mobility. The discussion included the plan to continue physical therapy and regular walking to support recovery. The patient was advised to return for a follow-up in six weeks to evaluate her recovery and discuss any ongoing issues, such as knee pain. Orders: Orders XR pelvis 1-2V Today M25.559 - Pain in unspecified hip Coding Level of Care Code Global (62112) Diagnoses S/P total right hip arthroplasty Z96.641
== END 2025-07-19 11:25 | disposition home or self-care (01) ==
LOC: HO.HOS 10:53
PROVIDERS: PCP Internal Medicine; Visit Provider Orthopaedic Surgery
DX: Z96.641 Presence of right artificial hip joint (principal)
CPT/HCPCS: 99024

== ENCOUNTER → 2025-07-19 10:55 | Outpatient (BNV) | payer OTHER, SELFPAY | PROVIDERS: Visit Provider Radiology Diagnostic Ultrasound | DX: M25.551 Pain in right hip (principal); M25.552 Pain in left hip; Z96.643 Presence of artificial hip joint, bilateral | CPT/HCPCS: 72170 ==